=== PATIENT | male | born 1965 | race Caucasian/White ===

== ENCOUNTER 2024-11-02 00:52 | Inpatient (IN) | payer OTHER, SELFPAY ==
[2024-11-01 22:12] VITALS: BP 110/64
[2024-11-01 22:16] VITALS: BP 110/64
[2024-11-01 23:26] VITALS: BP 141/58
[2024-11-01] MEDS: PROTONIX IV 80 MG IV (23:27)
[2024-11-01 23:32] LABS: INR 1.42; PT 17.6 Sec (11.4-14.6)
[2024-11-01 23:33] LABS: APTT 41.6 Sec (23.4-35.0)
[2024-11-01 23:37] VITALS: BP 126/52
[2024-11-01 23:40] VITALS: BP 123/54
[2024-11-01] MEDS: PROTONIX 100 IV (23:42)
[2024-11-01 23:49] LABS: ALT (SGPT) 28 U/L (0-50); AST (SGOT) 26 U/L (17-59); Albumin 3.1 g/dl (3.5-5.0); Alkaline Phosphatase 132 U/L (38-126); Blood Urea Nitrogen 71 mg/dl (9-20); Calcium 8.6 mg/dl (8.4-10.2); Carbon Dioxide 31 mmol/L (22-30); Chloride 94 mmol/L (98-107); Glucose 167 mg/dl (70-99); Lipase 262 U/L (23-300); Potassium 3.4 mmol/L (3.5-5.1); Sodium 134 mmol/L (135-145); Total Protein 6.8 g/dl (6.3-8.2); eGFR 27.55
[2024-11-01 23:50] VITALS: BP 126/55
--- NOTE | 2024-11-01 23:52 | ED.GENMED ---
History of Present Illness
General
Chief Complaint: Rectal Bleeding
Source: patient
Exam Limitations: none
Time Seen by Provider: 11/01/24 22:28
Nursing documentation reviewed up to this point in time: agreed with
History of Present Illness
History of Present Illness:
Note:
CHIEF COMPLAINT(S)
Vomiting with bright red blood and episodes of diarrhea.
HISTORY OF PRESENT ILLNESS
The patient is a 59-year-old male with a significant history of strokes, necrotizing bacterial infection in the abdomen, and a series of abdominal surgeries. He also has a past medical history involving end-stage renal disease requiring dialysis,
diabetes mellitus, hypertension, and congestive heart failure. The patient is presenting with new-onset vomiting of dark red blood, which started today. He also experienced diarrhea earlier this morning. Diarrhea was heme positive in the emergency
department.patient significant other at the bedside.
PAST MEDICAL AND SURGICAL HISTORY
History of strokes, necrotizing bacterial infection in the abdomen leading to multiple surgeries, end-stage renal disease on dialysis, diabetes mellitus, hypertension, and congestive heart failure.
ADDITIONAL HISTORY OBTAINED FROM SOURCES OTHER THAN THE PATIENT
Per the snf staff, the patients vomiting and diarrhea started earlier this morning.
CHRONIC MEDICAL CONDITIONS SIGNIFICANTLY AFFECTING CARE
Chronic kidney disease on dialysis, diabetes mellitus, hypertension, and congestive heart failure.
REVIEW OF SYSTEMS
- Gastrointestinal: Vomiting with bright red blood, diarrhea.
PHYSICAL EXAM
General: Alert, seemingly no acute distress. Chronic disability
Skin: Warm, diaphoretic
Head: Normocephalic, atraumatic.
Neck: Supple, trachea midline.
Eye Ears, nose, mouth, and throat: Oral mucosa moist.
Cardiovascular: Normal peripheral perfusion, no edema.
Respiratory: Respirations are non-labored.
Gastrointestinal: Abdomen nondistended. Rectal tube in place palpation leaking dark stool stool around the tube
Back: Normal range of motion, normal alignment.
Musculoskeletal: Normal range of motion, normal strength.
Neurological: Patient at baseline mental status
Psychiatric: Cooperative, appropriate mood & affect.
PROBLEM LIST
Acute: Vomiting with hematemesis, Hemoccult positive diarrhea.
Chronic: Chronic kidney disease, diabetes mellitus, hypertension, congestive heart failure.
PLAN
The plan includes further evaluation and management of the hematemesis and diarrhea, potentially involving endoscopic investigation and supportive care. Blood work will be conducted to assess hemoglobin levels and renal function due to the patients
history of kidney disease. Monitoring for signs of significant blood loss or electrolyte imbalance is necessary. Kcentra started
DIFFERENTIAL DIAGNOSIS
The Differential Diagnosis includes, in no particular order and is not limited to:
1. Upper gastrointestinal bleed
2. Gastric ulcer
3. Esophageal varices
4. Margi-Simpson tear
5. Diverticulosis
6. Inflammatory bowel disease
7. Gastroenteritis
8. Peptic ulcer disease
9. Esophagitis
10. Gastrointestinal malignancy
Disposition:
SUMMARY OF ENCOUNTER
The patient is a 59-year-old male with a history of anticoagulation on apixaban (Eliquis) presenting with a gastrointestinal bleed. The patient has dark, tarry stools that are liquid, and the vomitus is dark with a dark red tinge, confirmed to be
hemoccult positive. Initial management included the administration of Kcentra to reverse the effects of anticoagulation. Gastroenterology was consulted for further management, and it has been decided to admit the patient to the hospital service for
further evaluation and treatment.
DISPOSITION
Admit to hospital service.
ASSESSMENT
The patient presents with signs of an active gastrointestinal bleed likely complicated by anticoagulation therapy with apixaban. The dark, tarry stools and hemoccult positive vomitus indicate upper gastrointestinal bleeding, possibly from a source
like a gastric ulcer or esophageal varices.
EMERGENCY TREATMENTS ADMINISTERED
Kcentra was administered to reverse the effects of anticoagulation.
MANAGEMENT OF THE PATIENTS CARE WAS DISCUSSED WITH
Gastroenterology was consulted for the patients management regarding the gastrointestinal bleed.
PLAN
Continue monitoring the patients hemodynamic status, serial hemoglobin, and hematocrit levels. Consult Gastroenterology for endoscopic evaluation and management. Consider blood transfusion if there is significant blood loss.
MEDICATION RECONCILIATION
Kcentra was administered.
MEDICAL DECISION MAKING
-Complexity of Data Reviewed: Chronic conditions affecting care include the patient�s known history of anticoagulation use. The differential diagnoses considered were 1) Upper gastrointestinal bleed 2) Gastric ulcer 3) Esophageal varices 4)
Margi-Simpson tear 5) Diverticulosis 6) Gastroenteritis 7) Peptic ulcer disease 8) Esophagitis 9) Gastrointestinal malignancy.
-Data:
Category 1
No specific lab tests were discussed.
Category 3
Discussion with Gastroenterology regarding management of the gastrointestinal bleed.
DIAGNOSIS
- Upper gastrointestinal bleeding [ICD-10 K92.2]
- Anticoagulation therapy complication (due to apixaban) [ICD-10 D68.32]
Phy Exam
Physical Exam
Physical Exam:
.
Cardiovascular Exam
Cardiovascular Exam: other (Port in right chest wall)
Musculoskeletal Exam
Musculoskeletal Exam: other (Fistula in the left arm)
Skin Exam
Skin Exam: diaphoresis and warmth
Sepsis
Sepsis Screening
Sepsis Assessment: Sepsis Ruled Out
Sepsis Screen
Sepsis Screen: Sepsis Ruled Out
Date: 11/02/24
Time: 00:33
Course
Orders/Labs/Results
Orders:
Orders
11/01/24 22:28
Urinalysis Reflex To Culture Urgent
11/01/24 22:50
STOOL [C difficile Antigen & Toxins] Urgent
PHILL Source: Feces/Stool
Specimen Description:
Date Specimen was Collected: 11/01/24
Time Specimen was Collected: 22:50
11/01/24 23:13
Complete Blood Count/With Diff Urgent
Comprehensive Metabolic Panel Urgent
Lipase Urgent
PTT Urgent
Prothrombin Time Urgent
Stool Culture Urgent
PHILL Source: Feces/Stool
Specimen Description:
Date Specimen was Collected: 11/01/24
Time Specimen was Collected: 22:50
11/01/24 23:15
Octreotide [Sandostatin] 50 mcg IV NOW STA
Pantoprazole 80 mg/100 ml Nss [Protonix] 80 mg in 100 ml IV NOW
Pantoprazole [Protonix IV] 80 mg IV NOW STA
11/01/24 23:16
Electrocardiogram (*1) Stat
Reason for Study: Other
Other Reason for Exam: GI Bleed
EKG- Treatment ONCE
IV Insert/Care/Rem.- Treatment PRN
11/01/24 23:35
Type And Crossmatch [Type+Screen] Urgent
11/02/24 00:12
Prothrombin Complex(Pcc),Human [Kcentra] 2,126 unit Empty Viaflex Container 100 ml [Viaflex Empty Container] 80 ml IV NOW
Does patient have a dx of serious acute active bleeding?: Yes
Does patient have prior history of HIT?: No
Abnormal Lab Results
11/01/24
23:13
WBC 16.1 H 10^3/uL
(4.8-10.8)
RBC 2.39 L 10^6/uL
(4.70-6.10)
Hgb 6.6 L* g/dL
(13.0-18.0)
Hct 21.1 L %
(39.0-52.0)
MCHC 31.3 L g/dL
(33.0-37.0)
RDW 15.6 H %
(11.5-14.5)
Abs Immat Gran (auto) 0.1 H 10^3/uL
(0-0.05)
Absolute Neuts (auto) 13.1 H 10^3/uL
(1.4-6.5)
Absolute Monos (auto) 0.8 H 10^3/uL
(0.1-0.6)
Immature Gran % 0.7 H %
(0-0.5)
Neutrophils % 81.5 H %
(42.2-75.2)
Lymphocytes % 10.5 L %
(20.5-51.1)
PT 17.6 H Sec
(11.4-14.6)
APTT 41.6 H Sec
(23.4-35.0)
Sodium 134 L mmol/L
(135-145)
Potassium 3.4 L mmol/L
(3.5-5.1)
Chloride 94 L mmol/L
(98-107)
Carbon Dioxide 31 H mmol/L
(22-30)
BUN 71 H mg/dl
(9-20)
Creatinine 2.6 H mg/dL
(0.7-1.3)
Glucose 167 H mg/dl
(70-99)
Alkaline Phosphatase 132 H U/L
(38-126)
Albumin 3.1 L g/dl
(3.5-5.0)
11/01/24 23:13
11/01/24 23:13
Vital Signs
Initial and Last Documented VS:
Initial Vital Signs
Temp Pulse Resp BP Pulse Ox
99.1 F 96 22 110/64 98
11/01/24 22:12 11/01/24 22:12 11/01/24 22:12 11/01/24 22:12 11/01/24 22:12
Last Documented Vital Signs
Temp Pulse Resp BP Pulse Ox
99.1 F 82 27 125/57 93
11/01/24 22:12 11/02/24 00:15 11/01/24 23:45 11/02/24 00:10 11/02/24 00:15
*Pulse Oximetry
SaO2: 98
Oxygen Mode of Delivery: Room air
Patient hypoxic: no
*Critical Care Note
Total Time (30-74mins, 75-104mins- exclusive of procedures): 36 (Critical care statement: A total of 36 minutes of critical care time was provided for this patient. This time is separate from time utilized to perform the aforementioned documented
procedures. Aggregate critical care time includes only time during which I was engaged in work directl)
Update Note
Update Note:
Spoke with Dr. Naseem Donohue, who is aware of the patient. Patient to be admitted to the hospitalist service.
ED Attending Note
-
Portions of this chart may have been created with voice recognition software.� Occasional wrong word or��sound alike� substitutions may have occurred due to the inherent limitations of voice recognition software.
Discharge Plan
Departure
Patient Disposition: Admit
Date of Disposition: 11/02/24
Time of Disposition: 00:02
Admit to: ICU
Presentation/result/management discussed w/ accepting MD/DO: Hospitalist
Condition: Fair
Discharge Problem:
Acute GI bleeding
Interventions
Interventions:
*Risk Screen - Suicide Last Done: 11/01/24 22:12
*General Assessment Last Done: 11/01/24 22:12
*Neglect/Abuse Screening Last Done: 11/01/24 22:12
*ED- Fall Risk Assessment Last Done: 11/01/24 22:12
*ED COVID-19 Vaccine History Last Done: 11/01/24 22:12
Discharge Date and Time
Print Language: CONGOLESE
[2024-11-02] VITALS (31 sets, daily range): BP systolic 85–144; BP diastolic 43–69; BMI 29.2
[2024-11-02 00:23] LABS: Hematocrit 21.1 % (39.0-52.0); Hemoglobin 6.6 g/dL (13.0-18.0); Mean Corp Hgb Conc. 31.3 g/dL (33.0-37.0); Mean Corpuscular Volume 88.3 fL (80.0-94.0); Nucleated Red Blood Cells % 0 % (-); Platelet Count 216 10^3/uL (130-400); Red Cell Dist. Width 15.6 % (11.5-14.5)
[2024-11-02] MEDS: KCENTRA 80 UNIT IV (00:23)
--- NOTE | 2024-11-02 00:28 | HPS.HSE ---
Family Physician
-
Family Physician:
Chief Complaint
-
Rectal bleeding
History of Present Illness
This is a 59-year-old male with past medical history significant for CVA with residual paraplegia, status post trach and PEG, history of intra-abdominal abscess status post exploratory laparotomy without bowel resection, atrial fibrillation on
anticoagulation, [id number] diabetes, COPD, hypertension, ESRD on hemodialysis via right IJ PermCath brought to the emergency department after having found 2 episodes of bloody emesis at his [facility].
According to significant other patient had 2 episodes of bloody appearing brown emesis while at the [facility]. He did not complain of having any abdominal pain prior. He has not been having any diarrhea. He ate last was diagnosed with C.
difficile about 2 months ago. On arrival in the emergency department patient was having a brisk amount of heme positive brown blood-tinged stool. It was not particularly black. He was diaphoretic.
Initial blood pressure was 110/64 pulse was 96 and was satting 98% on room air. Was afebrile with a temp of 99.1. Hemoglobin was 6.6 (significant other notes that he has chronic anemia for reasons that she is not sure of and he has been transfused
multiple times in the past). WBC was 16.1 platelet count was 216. His electrolytes were stable with a sodium of 134, potassium 3.4 bicarb 31 and BUN/creatinine of 71 and 2.6 respectively. Glucose was 167. INR was 1.4.
Medical History
Past Medical History
Past Medical History: Reports Arrhythmia (Atrial fibrillation), CVA (Residual aphasia and paraplegia, residual dysphagia status post PEG), HTN and Renal Failure (End-stage renal disease on hemodialysis Friday via right IJ PermCath,
he is status post a left upper extremity AV fistula 1 month ago)
Past Surgical History: Reports Other (PEG tube placement, exploratory laparotomy)
Social History
Unable to obtain full social history at this time due to: Patient Non-verbal
Family History
Family History: Not pertinent
Allergies / Home Medications
Allergies reflects when Allergies were last updated in [facility].
Home Medications with original date entered in [facility]
Allergy/Medication List:
Allergies
Allergy/AdvReac Type Severity Reaction Status Date / Time
No Known Allergies Allergy Verified 11/01/24 22:20
If medication reconciliation has not been performed, why?: Medication List N/A
Review of Systems
-
Unable to obtain full review of systems at this time due to: Patient Non-verbal
Physical Exam
Vital Signs
Vital Signs
Temp Pulse Resp BP Pulse Ox
99.1 F 82 27 125/57 93
11/01/24 22:12 11/02/24 00:15 11/01/24 23:45 11/02/24 00:10 11/02/24 00:15
Physical Exam
General: Other (Ill-appearing patient, nonverbal unable to communicate. )
HEENT: NormoCephalic, Anicteric, Atraumatic and PERRLA; No Oxygen
Respiratory: Clear
Cardiac: S1/S2 and Regular Rhythm
Breast: Deferred by me
GI: Soft, Non Distended, Normal Bowel Sounds and Peg Tube
Rectal: Brown, Red and Hem Positive
Genito-urinary: Deferred by me
Musculoskeletal: No Clubbing, No Cyanosis and No Edema
Skin: Warm
Neuro: Awake; No Alert or Oriented
Hematologic/Lymphatic: No Lymphadenopathy
Laboratory Results
-
11/01/24 23:13
11/01/24 23:13
Laboratory Results
PT 17.6 Sec (11.4-14.6) H 11/01/24 23:13
INR 1.42 11/01/24 23:13
APTT 41.6 Sec (23.4-35.0) H 11/01/24 23:13
Total Bilirubin 0.4 mg/dl (0.2-1.3) 11/01/24 23:13
AST 26 U/L (17-59) 11/01/24 23:13
ALT 28 U/L (0-50) 11/01/24 23:13
Alkaline Phosphatase 132 U/L (38-126) H 11/01/24 23:13
Lipase 262 U/L (23-300) 11/01/24 23:13
Data Reviewed
-
Lab Data: Labs Reviewed by me
Old Records: Reviewed
Impression/Plan
-
IMPRESSION:
59-year-old with past medical history of atrial fibrillation on anticoagulation, incisional disease on hemodialysis, CVA with residual aphasia and paraplegia, status post PEG for dysphagia presenting to the emergency department with GI hemorrhage.
Had bloody emesis at [facility] and has continued blood tinged heme positive stool in the emergency department. Possibly diarrhea in the setting of GI bleed vessels extensive upper/lower GI hemorrhage. INR is 1.4 patient is on Eliquis.
PLAN:
GI bleed -unclear source of the bleeding likely upper GI bleed given bloody emesis will cannot rule out lower GI bleed. He is currently with a stable blood pressure at 125 systolic. He is not tachycardic. Hemoglobin 6.6. No abdominal tenderness
or distention.
-Admit to IMU for GI hemorrhage
-Reversal with Kcentra
-PPI IV drip
-non known liver disease/varices, avoided octreotide drip
-Trend H&H every 6-8h
-Given the initial small bolus crystalloid
-Transfuse 2 units packed RBCs now
-Monitor hemodynamics, will consider CT GI bleeding scan but unlikely to be useful in setting of anticoagulant
-Patient is status post PEG, holding oral medications for now, n.p.o.
ESRD -HD Friday via right IJ PermCath. He does have a new 1 month old left upper extremity AV fistula. Labs do not show any indication for acute modality. His last dialysis was today Friday.
- nephrology consult
-Blood products and fluids as necessary for hemorrhagic shock
-Holding all antihypertensive
DVT prophylaxis with SCDs
CODE STATUS�full code
[2024-11-02] MEDS: PROTONIX IV (02:15)
[2024-11-02] MEDS: D5/0.45%NACL 1000 IV (02:15)
--- NOTE | 2024-11-02 04:35 | PTCARENOTE ---
Pt arrived to ICU room 3366 from ER at approx 0145. Pt is IMU level of care. Protonix drip infusing upon arrival. Pt is non-verbal, able to shake/nod head yes/no but does not follow commands most of the time, therefore unable to assess pt's mental
status fully. Pt noted to be moving his LUE off of the bed but only trace movement to other extremities. Denies pain, denies nausea. SR 70s-80s on monitor. SpO2 100% on RA. Arrived from ER with fecal management system already in place, draining
brown liquid stool. Multiple wounds noted, see skin/wound management flowsheet on worklist for details. Wound care consult placed. First of 2 units of PRBC started at 0300. Assessment as documented in nursing shift assessment flowsheet. in
room, asleep on couch.
[2024-11-02 05:59] LABS: Hematocrit 24.6 % (39.0-52.0); Hemoglobin 8.0 g/dL (13.0-18.0)
[2024-11-02 06:12] LABS: INR 1.30; PT 16.5 Sec (11.4-14.6)
[2024-11-02 06:13] LABS: APTT 36.7 Sec (23.4-35.0)
[2024-11-02 06:24] LABS: Blood Urea Nitrogen 79 mg/dl (9-20); Calcium 8.7 mg/dl (8.4-10.2); Carbon Dioxide 32 mmol/L (22-30); Chloride 94 mmol/L (98-107); Estimated Creatinine Clearance 28 ml/min; Glucose 141 mg/dl (70-99); Potassium 3.4 mmol/L (3.5-5.1); Sodium 134 mmol/L (135-145); eGFR 25.20
--- NOTE | 2024-11-02 08:19 | CON.GI ---
Addendum entered and electronically signed by Santy Silvestre MD 11/02/24 13:51:
I personally performed a history and physical exam of the patient and discussed management with the resident. I reviewed the resident's note and agree with the documented findings and plan of care HPI/CC.
59-year-old male past medical history of CVA with residual paraplegia and aphasia status post trach now removed, PEG placed March 2023 with history of intra-abdominal abscess with necrotizing infection on discussion with most likely due to
buried bumper, PEG most recently changed January 2024, A-fib on Eliquis, diabetes, CHF (no details known; EKG without overt signs of LV dilation), and renal disease on dialysis Friday, history of anemia (unclear baseline Hb),
history of C. difficile 2 months ago presenting with hematemesis. This was seen at the longterm, details are from the chart. He was also having diarrhea. Hemodynamically stable in ER and continues to be so here in the hospital. Hemoglobin on
admission was 6.6, he has gotten 2 units of blood and his repeat hemoglobin is 8.6. He has had no episodes of hematemesis here in the hospital. We did a bedside aspirate of the PEG and there was no blood. Platelet count is 216. He was given
Kcentra in the emergency room. He is on a Protonix drip. Additionally, he was found to have a leukocytosis with white blood cell count of 16. Abd/chest Xray done was normal. Dark brown liquid currently in stool collection kit.
On exam, he is nonverbal. His belly is somewhat distended, nontender. Plan for CT for further evaluation given the abdominal distention, leukocytosis, and pending findings (ensure no subtle PUD perforation, etc) likely would benefit from upper
endoscopy tomorrow. If has further ongoing overt bleeding, would proceed with upper endoscopy sooner. Risk, alternatives, benefits of upper endoscopy discussed with patient's and she is agreeable, risks including but not limited to bleeding,
infection, perforation. I will discuss with the patient's tomorrow, we can also exchange the PEG tomorrow during the upper endoscopy. In the interim, recommend to continue PPI, continue to trend hemoglobin. In regards to his diarrhea, C.
difficile antigen positive and toxin negative. This could be due to his recent C. difficile but I will also check stool white blood cell count. Stool culture pending. If diarrhea persist with no clear etiology, may benefit from Dificid. Discussed
with hospitalist; also d/w renewal specialist regarding timing of HD with EGD tmwr.
Original Note:
Consultation
-
Date/Time Consultation Requested: 11/02/2024
Date/Time Consultation Performed: 11/02/2024
Requesting Provider: Niurka Mckeon
Performing Provider: Cathryn Silvestre
Reason for Consultation: Bloody Emesis
Medical History
Chief Complaint / HPI
Chief Complaint: Blood emesis
History of Present Illness:
Jordon is a 59 year old man with a past medical history significant for CVA with residual paraplegia/aphasia, s/p trach (now removed), PEG tube placed in Mar 2023 (last changed January 2024), w/ h/o intraabdominal abscess with necrotizing infection
requiring multiple surgeries and movement of PEG placement (May 2023), afib (on Eliquis), NIDDM, CHF (unsure of last echo), ESRD on Dialysis MWFr (R IJ Permacath), hypertension who presented from [facility] with complaints of 2 episodes of blood
emesis. Per , he had C Diff 2 months ago, but was not having any symptoms leading up to this emesis event. He was passing brown liquid stool on arrival to the ED. No reports of fever or other systemic signs. He was hemodynamically stable and
afebrile in the ED. Hgb was found to be 6.6. He was transfused 1 U PRBCs along with Kcentra. reports a need of transfusions in the past. He was started on IV PPI ggt and hgb was trended.
Called to obtain additional history. Pt has not been seen by GI in over one year. He has not had EGD in over one year. She cannot recall if he ever had a colonoscopy. No reported history of hemorrhoids, polyps, colonic masses, diverticulosis,
or known PUD.
GI was consulted for bloody emesis.
He is currently resting comfortably, asleep in bed. No new events overnight per nursing. FMS is draining brown liquid stool.
Past Medical History
Past Medical History: CHF, CVA, HTN, NIDDM and Renal Failure (on Dialysis)
Social History
Tobacco: Non-Smoker
Alcohol: None
Drug: None
Personal:
Living: Usp
Employment: Not Employed
Family History
Family History: Reviewed & Not Pertinent
Allergies / Home Medications
Allergy/AdvReac Type Severity Reaction Status Date / Time
No Known Allergies Allergy Verified 11/01/24 22:20
�Medication �Instructions �Recorded
allopurinol 100 mg tablet 100 mg feeding tube DAILY 11/02/24
apixaban 5 mg tablet (Eliquis) 5 mg feeding tube BID 11/02/24
hydralazine 25 mg tablet 25 mg feeding tube TID 11/02/24
nystatin 100,000 unit/mL oral 11/02/24
suspension
ondansetron HCl 8 mg tablet 8 mg feeding tube TID 11/02/24
sevelamer HCl 800 mg tablet 800 mg feeding tube TID 11/02/24
Review of Systems
-
Unable to obtain full review of systems at this time due to: Patient Non Verbal
Vital Signs
Temp Pulse Resp BP Pulse Ox
98.6 F 78 24 125/58 100
11/02/24 08:02 11/02/24 08:02 11/02/24 08:02 11/02/24 08:02 11/02/24 08:02
Physical Exam
Exam
General: No Apparent Distress
HEENT: Normocephalic, Anicteric and Moist Mucous Membranes
Respiratory: Clear and Non Labored Respirations
Cardiac: S1/S2 and Regular Rhythm; Negative Murmur
Breast: N/A
GI: Other (Large central scar from prior laparotomy with adjacent firm tissue, nontender abdomen, hyperactive bowel sounds. PEG tube with clean/dry surrounding tissue. )
Rectal: Other (FMS)
Musculoskeletal: No Clubbing, No Cyanosis and No Edema
Skin: Warm and Dry
Neuro: Other (Paraplegia post CVA w/ residual speech/motor defecits)
Results
WBC 16.1 10^3/uL (4.8-10.8) H 11/01/24 23:13
Hgb 8.0 g/dL (13.0-18.0) L D 11/02/24 05:44
Hct 24.6 % (39.0-52.0) L 11/02/24 05:44
MCV 88.3 fL (80.0-94.0) 11/01/24 23:13
Plt Count 216 10^3/uL (130-400) 11/01/24 23:13
Absolute Neuts (auto) 13.1 10^3/uL (1.4-6.5) H 11/01/24 23:13
PT 16.5 Sec (11.4-14.6) H 11/02/24 05:44
INR 1.30 11/02/24 05:44
APTT 36.7 Sec (23.4-35.0) H 11/02/24 05:44
Sodium 134 mmol/L (135-145) L 11/02/24 05:44
Potassium 3.4 mmol/L (3.5-5.1) L 11/02/24 05:44
Chloride 94 mmol/L (98-107) L 11/02/24 05:44
Carbon Dioxide 32 mmol/L (22-30) H 11/02/24 05:44
BUN 79 mg/dl (9-20) H 11/02/24 05:44
Creatinine 2.8 mg/dL (0.7-1.3) H 11/02/24 05:44
Calcium 8.7 mg/dl (8.4-10.2) 11/02/24 05:44
Total Bilirubin 0.4 mg/dl (0.2-1.3) 11/01/24 23:13
AST 26 U/L (17-59) 11/01/24 23:13
ALT 28 U/L (0-50) 11/01/24 23:13
Alkaline Phosphatase 132 U/L (38-126) H 11/01/24 23:13
Lipase 262 U/L (23-300) 11/01/24 23:13
Diagnostic Image Results:
Prior GI Procedures:
EGD:
Colonoscopy:
Assessment / Plan
-
Jordon is a 59 year old man with a past medical history significant for CVA with residual paraplegia/aphasia, s/p trach (now removed), PEG tube placed in Mar 2023 (last changed January 2024), w/ h/o intraabdominal abscess with necrotizing infection
requiring multiple surgeries and movement of PEG placement (May 2023), afib (on Eliquis), NIDDM, CHF (unsure of last echo), ESRD on Dialysis MWFr (R IJ Permacath), hypertension who presented from [facility] with complaints of 2 episodes of blood
emesis and brown liquid stool in ED.
ASSESSMENT:
#Bloody Emesis
#Diarrhea
#Anemia, multifactorial (Acute Blood Loss, CKD, probable AMBER)
#H/o CVA with dysphagia, aphasia, paraplegia
#s/p tracheostomy
#Leukocytosis
#PEG tube
#ESRD on Dialysis MWFr
#Afib
#CHF (unsure of last EF)
#NIDDM
#Hypertension
PLAN:
#Bloody Emesis
No new episodes of bloody emesis overnight. Uncertain whether emesis was truly 'bloody'. No hint of 'coffee ground' emesis. Hgb improved to 8 s/p transfusion, getting additional bag now, will check repeat H&H at 11am and 5pm.
Will first obtain abd xr to check for obstruction which can lead to overflow diarrhea and dark emesis.
Agree to continue with IV PPI ggt.
elevated WBC count on arrival, but afebrile -- Stool studies obtained, will follow results
Continue to hold Eliquis/AC, pt in NSR on monitor
#Diarrhea
Stool dark brown in color w/ clots per nursing, FMS in
history of C Diff 2 months ago -- stool studies pending
Will obtain XR abdomen to rule out overflow
#Anemia, multifactorial (Acute Blood Loss, CKD, probable AMBER)
Hgb 6.6 on arrival, improved to 8 after 1 uPRBCs and Kcentra. Repeating H&H, transfusing second U PRBCs now.
Add on Iron Studies, B12, Folate to blood drawn prior to blood products -- likely multifactorial
#Dysphagia
#PEG Tube
Pt may need eventual PEG tube replacement given that last replacement took place in January 2024 and pt has not had GI follow up since then.
-
-
Thank you for consultation and allowing me to participate in the patient's care. Please call the credit professional GI physician during the after hours with any questions or concerns.
[2024-11-02] MEDS: PROTONIX 100 IV ×2 (09:05→20:35)
--- NOTE | 2024-11-02 09:22 | PTCARENOTE ---
pt wakes to touch. protective movements noted when turned. protonix gtt and prbc running now. fms in place draining blood tinged. loose stool. cwhd cath in place.
--- NOTE | 2024-11-02 09:53 | W.PN.HOSP.TC ---
Today's Communication/Plan
-
see PN
Assessment / Plan
Assessment / Plan
59yo M with PMHx of ESRD on HD, Hx of c.diff, intraabdominal abscess, CVA s/p PEG and paraplegia, non-verbal, Afib on eliquis brought from [facility] with anemia and hematemesis. S/P Kcentra in ED
A/P:
#Acute blood loss anemia 2/2 GIB on anemia of chronic disease 2/2 ESRD
Two large bore IV, serial H&H, transfuse to keep Hgb >7
GI consult
PPI drip
Hold antioplatelets, anticoagulation and NSAIDs
s/p 2 units PRBC
#Diarrhea
Hx of recent C.diff
stool C.diff PCR positive and toxine neg
will possibly target treatment if no other source of leukocytosis
#Leukocytosis
abd non-tender, not distended
BCx
Chest XR
UA if possible
#ESRD on HD
#Mild hypokalemia
nephrology for HD
#Minimal alk.phos elevation
no RUQ pain
follow LFT
if no other source of infection - possible CT abd/pelvis
#Dysphagia
on PEG
#Hx of CVA with residular aphasia and paraplegia
COnt ELiquis when possible
DVT ppx SCDs
Full code
I have spent at least 75min of critical care time reviewing chart, test results, communication with consultants and providing direct patient care
Anticipated Discharge: > 48 hours
Subjective/Interval History
-
Date of Service: November 02, 2024
Objective Data
-
Labs:
Laboratory Results
11/01/24 11/02/24 11/02/24
23:13 05:44 11:00
WBC 16.1 H
Hgb 6.6 L* 8.0 L D Pending
Hct 21.1 L 24.6 L Pending
Plt Count 216
PT 17.6 H 16.5 H
INR 1.42 1.30
APTT 41.6 H 36.7 H
Sodium 134 L 134 L
Potassium 3.4 L 3.4 L
Chloride 94 L 94 L
Carbon Dioxide 31 H 32 H
BUN 71 H 79 H
Creatinine 2.6 H 2.8 H
Glucose 167 H 141 H
Calcium 8.6 8.7
Total Bilirubin 0.4
AST 26
ALT 28
Alkaline Phosphatase 132 H
11/02/24
17:00
WBC
Hgb Pending
Hct Pending
Plt Count
PT
INR
APTT
Sodium
Potassium
Chloride
Carbon Dioxide
BUN
Creatinine
Glucose
Calcium
Total Bilirubin
AST
ALT
Alkaline Phosphatase
Vital Signs:
Vital Signs
Temp Pulse Resp BP Pulse Ox
98.6 F 78 24 125/58 100
11/02/24 08:02 11/02/24 08:02 11/02/24 08:02 11/02/24 08:02 11/02/24 08:02
I&O
11/01/24 11/02/24 11/03/24
06:59 06:59 06:59
Intake Total 300 / 310
Output Total 400 / 400
Balance -100 / -90
Review of Systems
-
Unable to obtain full review of systems at this time due to: Patient Non-verbal
History Source: Patient
Physical Exam
-
General: No Apparent Distress and Comfortable
Respiratory: Clear to Auscultation; Negative Wheezes or Crackles
Cardiac: Regular Rhythm
GI: Soft, Nontender, Nondistended and Normal Bowel Sounds
Rectal: Black
Musculoskeletal: No Clubbing, No Cyanosis and No Edema
Neuro: Awake and Alert
Psych: Calm
[2024-11-02 10:12] LABS: Iron 47 ug/dl (49-181)
[2024-11-02 10:22] LABS: Total Iron Binding Capacity 179 ug/dl (261-462)
--- NOTE | 2024-11-02 10:40 | W.CON.NEPH ---
Consultation
-
Date/Time Consultation Requested: 11/02/24 0146
Date/Time Consultation Performed: 11/02/24 1010
Requesting Provider: Niurka Duong
Performing Provider: Audrey Giordano
Reason for Consultation: ESRD
Medical History
-
Chief Complaint: GIB
History of Present Illness:
59-year-old male with past medical history significant for CVA with residual paraplegia bedbound, status post trach(now removed) and PEG, history of intra-abdominal abscess status post exploratory laparotomy without bowel resection, atrial
fibrillation on anticoagulation, [id number] diabetes, COPD, hypertension on hydralazine, ESRD on hemodialysis via right IJ PermCath brought to the emergency department after having found 2 episodes of bloody emesis at his nursing
home-[facility]. On arrival to the ER he noted to have brisk amount of heme positive dark stools. Was admitted to the ICU, remained hemodynamically stable. his hemoglobin was at 6.6 on admission and received 2 units the improvement of hemoglobin
up to 8. He completed dialysis yesterday through a tunneled catheter. He reportedly has AV fistula as well which reportedly placed a month ago. During the visit nurse noted to have bladder scan of 2 L of urine however unable to pass Griffiths
catheter. Patient is nonverbal, most of the history is obtained through the chart. No reported fever or vomiting today.
Past Medical History
Atrial fibrillation, CVA -Residual aphasia and paraplegia, residual dysphagia status post PEG, HTN and End-stage renal disease on hemodialysis Friday via right IJ PermCath, he is status post a left upper extremity AV fistula 1 month
ago
Past Surgical History: Other (PEG tube placement, exploratory laparotomy, AVF)
Social History
unable to obtain as patient is nonverbal
Family History
Family History: Unable to Obtain (non verbal)
Allergies / Home Medications
Allergy/AdvReac Type Severity Reaction Status Date / Time
No Known Allergies Allergy Verified 11/01/24 22:20
�Medication �Instructions �Recorded �Confirmed �Type
allopurinol 100 mg tablet 100 mg feeding tube DAILY 11/02/24 11/02/24 History
apixaban 5 mg tablet (Eliquis) 5 mg feeding tube BID 11/02/24 11/02/24 History
hydralazine 25 mg tablet 25 mg feeding tube TID 11/02/24 11/02/24 History
nystatin 100,000 unit/mL oral 11/02/24 History
suspension
ondansetron HCl 8 mg tablet 8 mg feeding tube TID 11/02/24 11/02/24 History
sevelamer HCl 800 mg tablet 800 mg feeding tube TID 11/02/24 11/02/24 History
Review of Systems
-
Unable to obtain full review of systems at this time due to: Patient Non Verbal
Physical Exam
Vital Signs
Vital Signs
Temp Pulse Resp BP Pulse Ox
98.5 F 82 22 125/64 99
11/02/24 10:41 11/02/24 10:41 11/02/24 10:41 11/02/24 10:41 11/02/24 10:41
Lab Results
WBC 16.1 10^3/uL (4.8-10.8) H 11/01/24 23:13
RBC 2.39 10^6/uL (4.70-6.10) L 11/01/24 23:13
Plt Count 216 10^3/uL (130-400) 11/01/24 23:13
Sodium 134 mmol/L (135-145) L 11/02/24 05:44
Potassium 3.4 mmol/L (3.5-5.1) L 11/02/24 05:44
Chloride 94 mmol/L (98-107) L 11/02/24 05:44
Carbon Dioxide 32 mmol/L (22-30) H 11/02/24 05:44
BUN 79 mg/dl (9-20) H 11/02/24 05:44
Creatinine 2.8 mg/dL (0.7-1.3) H 11/02/24 05:44
eGFR 25.20 11/02/24 05:44
Glucose 141 mg/dl (70-99) H 11/02/24 05:44
Calcium 8.7 mg/dl (8.4-10.2) 11/02/24 05:44
Albumin 3.1 g/dl (3.5-5.0) L 11/01/24 23:13
Physical Exam
General: Awake, No Distress and Nontoxic
HEENT: EOMI and Neck Supple
Respiratory: Normal Excursion, Nonlabored Respirations and Other (caorse BS)
Cardiac: S1/S2 and Regular Rate/Rhythm
Breast: Deferred by me
Abdomen: Soft, Nontender, Nondistended and Other (midline scar noted and palpable mass near umbilicus-suspect is bladder)
Musculoskeletal: No Cyanosis and No Edema
Skin: No Rash
Neuro: Other (unable to assess, pt non verbal)
Psych: Other (unable to assess since he is non verbal)
Data Reviewed
-
Labs: Labs Reviewed by me and Discussed with Nurse
Assessment/Plan
-
IMP:
Acute blood loss anemia 2/2 GIB on anemia of chronic disease 2/2 ESRD
Diarrhea
Hx of recent C.diff
Leukocytosis
ESRD on HD-[facility]
left UE AVF
right chest wall catheter
Mild hypokalemia
Dysphagia on PEG
Hx of CVA with residual aphasia and paraplegia
Urine retention
NIDDM
Plan:
A/w GIB, anemia s/p PRBC
GI consulted on PPI gtt, plan EGD tomorrow
HD likely after EGD per GI request
he is hemodynamically stable with out pressors
ok to cont gentle IVF while NPO , holding PEG feeds
noted U retention of 2lit, agree with CT , griffiths could not be passed by nursing
resume Sevelamer when resumes diet
d/w nursing
[2024-11-02 10:53] LABS: Glycohemoglobin (HgbA1c) 5.2 % (4.0-5.6)
[2024-11-02 11:51] LABS: Folate > 20.0 ng/ml (2.76-20); Vitamin B12 828 pg/ml (239-931)
--- NOTE | 2024-11-02 11:55 | CM ---
Patient is non-verbal and non-responsive to questioning. Initial assessment completed with [facility] clinical product specialist, Gianna @ [phone]. Patient has resided at [facility] since July 2024. He has a history of CVA, ESRD and necrotizing
bacteria on abdomen. He has 1 roommate. [employer] patient was non-ambulatory, remains in bed except to transfer to [facility] for HD. He is totally dependent. He has a hospital bed and katelynn lift. [facility] therapy provides daily PT services in an attempt
to reduce/prevent contractures. He is on dialysis. He has a peg tube. Currently with griffiths. Reportedly will occasionally nod yes or no if asked direct questions. He was non-responsive to CM questioning. Does have a HC-POA which is his
significant other, Samaria Alex. PCP is Dr. Abdoul Chang. Pharmacy is [facility] through [facility] ([phone]). Discharge POC: Return to [facility] for resumption of LTC.
[2024-11-02 11:57] LABS: Hematocrit 26.3 % (39.0-52.0); Hemoglobin 8.6 g/dL (13.0-18.0)
[2024-11-02 12:06] LABS: Ferritin 1150.0 ng/ml (17.9-464.0)
--- NOTE | 2024-11-02 12:09 | W.PN.UPDATE ---
Update Note
Progress Note Update
Acute urinary retention most liekly 2/2 BPH, Jarrell in with the help of Urologist, drained ~2L of urine. UA pending, start Finasteride/Tamsulosin
--- NOTE | 2024-11-02 12:17 | CONS.URO ---
Consultation
-
Date/Time Consultation Performed: 11/02/2024 1155
Requesting Provider: Hospitalist
Performing Provider: Ady
Reason for Consultation: urinary retention
Medical History
History of Present Illness
RN could not pass Wellington
Allergies/Home Medications
Allergies
Allergy/AdvReac Type Severity Reaction Status Date / Time
No Known Allergies Allergy Verified 11/01/24 22:20
Home Medications
�Medication �Instructions �Recorded �Confirmed �Type
allopurinol 100 mg tablet 100 mg feeding tube DAILY 11/02/24 11/02/24 History
apixaban 5 mg tablet (Eliquis) 5 mg feeding tube BID 11/02/24 11/02/24 History
hydralazine 25 mg tablet 25 mg feeding tube TID 11/02/24 11/02/24 History
nystatin 100,000 unit/mL oral 11/02/24 History
suspension
ondansetron HCl 8 mg tablet 8 mg feeding tube TID 11/02/24 11/02/24 History
sevelamer HCl 800 mg tablet 800 mg feeding tube TID 11/02/24 11/02/24 History
Physical Exam
Vital Signs
Vital Signs
Temp Pulse Resp BP Pulse Ox
98.5 F 82 22 125/64 99
11/02/24 10:41 11/02/24 10:41 11/02/24 10:41 11/02/24 10:41 11/02/24 10:41
Lab / Testing Results
Laboratory Results
11/02/24 05:44
Physical Exam
male in ICU bed
nonverbal
phimosis
16 Fr coude-tipped Wellington passed with return of urine
Assessment / Plan
-
AUR
Phimosis
difficult Wellington
Rec: keep Wellington
[2024-11-02] MEDS: OMNIPAQUE 50 ML PO (12:23)
[2024-11-02 12:47] LABS: Urine Character Clear (Clear)
[2024-11-02 12:57] LABS: Urine Red Blood Cell 0-2 /HPF (0-2); Urine Squamous Cell 0-2 /LPF (Few); Urine White Cell 16-20 /HPF (0-5)
[2024-11-02] MEDS: NOVOLOG FLEXPEN-LOW RESISTANCE SC ×3 (12:59→23:17)
[2024-11-02 13:09] LABS: Glucose - Point of Care 125 mg/dl (70-99)
--- NOTE | 2024-11-02 13:17 | PTCARENOTE ---
pt had no urine output. needed UA sent. bladder scanned for 1974. dr López notified. ordered to place griffiths cath. 3 attempts by two rn tried. urology consulted and placed 16f kuda cath. pt drained 2000 melania urine.
--- NOTE | 2024-11-02 14:38 | WOUNDNOTE ---
SACRUM AND BUTTOCKS
--- NOTE | 2024-11-02 15:01 | WOUNDNOTE ---
[facility] [place] RN note: Patient admitted with acute GI bleed.
See H&P for complete history.
PMH: HISTORY OF PRESENT ILLNESS
The patient is a 59-year-old male with a significant history of strokes, necrotizing bacterial infection in the abdomen, and a series of abdominal surgeries. He also has a past medical history involving end-stage renal disease requiring dialysis,
diabetes mellitus, hypertension, and congestive heart failure.
Wound Location and type/assessment: Patient admitted with: healing stage 4 sacral PI, base pink with slough foul odor. L ischium with healing suspect stage 2 vs 3, scar surrounding opening. L posterior thigh with linear skin tear. R posterior thigh
with scar. Abdomen with healing scar, open to air, no drainage. Heels are intact, very dry skin on legs and feet. Turned with assist of nurse Sree.
Appetite: NPO feedings.
Pressure redistribution devices in place: Air mattress
Plan:Will order Dakin's for wound care of sacrum wtd daily. clean all other wounds with Dakin's and then silicone foam. Mineral oil to be applied to legs and feet daily.
Will confirm orders with hospitalist and update nurse.
Updated care plan and will follow as needed.
Note to case management of equipment requested for discharge:
Recommend follow up at wound care center upon discharge.
[2024-11-02] MEDS: STERILE WATER FOR INJECTION 10 ML IV (16:06)
[2024-11-02] MEDS: ROCEPHIN 1000 MG IV (16:06)
[2024-11-02 17:16] LABS: Hematocrit 26.6 % (39.0-52.0); Hemoglobin 8.9 g/dL (13.0-18.0)
[2024-11-02 17:49] LABS: Glucose - Point of Care 105 mg/dl (70-99)
[2024-11-02] MEDS: FIRVANQ 250 MG TUBE ×2 (17:57→23:06)
--- NOTE | 2024-11-02 20:41 | PTCARENOTE ---
Patient remains non-verbal, follows with eyes, able to move b/l UE's, no observable s/s of pain noted at this time. Patient noted to have occasional, moist, non-productive cough, pox 97-100% on ra. Lung sounds coarse throughout. Patient continues
with loose/watery brown/maroon bm to FMS. UO is light brown, cloudy to griffiths cath. Griffiths cath remains intact. IVF and Protonix gtt continue. Repositioned for pressure relief and comfort. Will continue to monitor patient closely.
[2024-11-02 23:26] LABS: Glucose - Point of Care 122 mg/dl (70-99)
[2024-11-03] VITALS (28 sets, daily range): BP systolic 82–155; BP diastolic 53–109; BMI 29.2
[2024-11-03 04:53] LABS: Hematocrit 25.8 % (39.0-52.0); Hemoglobin 8.6 g/dL (13.0-18.0); Mean Corp Hgb Conc. 33.3 g/dL (33.0-37.0); Mean Corpuscular Volume 86.9 fL (80.0-94.0); Nucleated Red Blood Cells % 0 % (-); Platelet Count 225 10^3/uL (130-400); Red Cell Dist. Width 15.2 % (11.5-14.5)
[2024-11-03] MEDS: PROTONIX 100 IV (05:38)
[2024-11-03] MEDS: FIRVANQ 250 MG TUBE ×2 (05:38→14:04)
[2024-11-03] MEDS: NOVOLOG FLEXPEN-LOW RESISTANCE SC ×3 (05:39→17:17)
[2024-11-03 05:41] LABS: ALT (SGPT) 22 U/L (0-50); AST (SGOT) 36 U/L (17-59); Albumin 2.7 g/dl (3.5-5.0); Alkaline Phosphatase 77 U/L (38-126); Blood Urea Nitrogen 87 mg/dl (9-20); Calcium 8.2 mg/dl (8.4-10.2); Carbon Dioxide 31 mmol/L (22-30); Chloride 94 mmol/L (98-107); Estimated Creatinine Clearance 26 ml/min; Glucose 99 mg/dl (70-99); Magnesium 2.3 mg/dl (1.6-2.3); Potassium 3.7 mmol/L (3.5-5.1); Sodium 130 mmol/L (135-145); Total Protein 6.0 g/dl (6.3-8.2); eGFR 22.30
[2024-11-03 05:47] LABS: Glucose - Point of Care 109 mg/dl (70-99)
[2024-11-03] MEDS: DAKIN'S SOLUTION 0.125% 1/4 STRENGTH 473 ML TOPICAL (07:35)
[2024-11-03] MEDS: HYDROPHOR 1 APPLIC TOPICAL (07:36)
--- NOTE | 2024-11-03 07:48 | PTCARENOTE ---
Patient to GI lab for EGD
--- NOTE | 2024-11-03 10:05 | PHA.VAN.IN ---
Assessment
- Assessment
Renal Function: Patient has ESRD, on chronic Hemodialysis
Hemodialysis Schedule: MWF
Concomitant Antimicrobials: piperacillin/tazobactam; vanco PO
Pharmacokinetics Vancomycin I
- -
Patient Age: 59
Patient Sex: Male
Vancomycin Day #: 1
Indication: Bacteremia
Requesting Provider: Dr. López
Pertinent Antimicrobial Allergies:
NKDA
Height / Weight:
Height 5 ft 9 in
Actual Weight 89.6 kg
Pertinent Past Medical History: paraplegia (bedbound), ESRD HD MWF
- Vital Signs / Lab Results
Temp Pulse Resp BP Pulse Ox
97.4 F 72 18 129/54 99
11/03/24 07:39 11/03/24 07:45 11/03/24 07:45 11/03/24 06:00 11/03/24 07:52
Lab Results - Hematology
11/01/24 11/03/24
23:13 04:20
WBC 16.1 H 21.4 H
Lab Results - Chemistry
11/01/24 11/02/24 11/03/24
23:13 05:44 04:20
BUN 71 H 79 H 87 H
Creatinine 2.6 H 2.8 H 3.1 H
Estimated Creat Clear 28 26
Albumin 3.1 L 2.7 L
Lab Results - Urine
11/02/24 11/02/24
12:37 17:54
Urine Nitrite (Reflex) Negative Cancelled
Leukocyte Esterase Rfl 3+ A Cancelled
Urine WBC (Reflex) 16-20 A
Ur Squamous Epith Cells 0-2
Urine Bacteria (Reflex) Few A
Microbiology Results
11/02/24 12:37 Urine Culture - Final
Urine NO GROWTH
11/02/24 07:41 MRSA Screen - Final
Nose No Methicillin Resistant Staphylococcus aureus isolated.
11/02/24 10:13 Blood Culture - Preliminary
Blood/Venous Positive culture in progress
Gram Stain - Preliminary
11/01/24 23:13 Stool Leukocytes - Final
Feces/Stool
11/01/24 23:13 C. difficile GDH Antigen & Toxins - Final
Feces/Stool C. difficile antigen positive, toxin negative.
Clostridium difficile present, but toxin not detected.
Patient may be a carrier, colonized with nontoxinogenic
strain or the level of toxin in sample is below detection
limits. This information should be used in conjunction with
the patient's clinical history.
[2024-11-03 11:53] LABS: Glucose - Point of Care 96 mg/dl (70-99)
--- NOTE | 2024-11-03 12:20 | W.PN.HOSP.TC ---
Today's Communication/Plan
-
broad spectrum Abx
ID consult
repeat Bcx
carafate
HD today
move to [facility] telemetry
start Elqiuis tonight
Assessment / Plan
Assessment / Plan
59yo M with PMHx of ESRD on HD, Hx of c.diff, intraabdominal abscess, CVA s/p PEG and paraplegia, non-verbal, Afib on eliquis brought from [facility] with anemia and hematemesis. S/P Kcentra in ED. FOund severe gastritis. Also Acute urinary
retention and leukocytosis with possible bacteremia, with extensive HX of sacral wound
A/P:
#Acute blood loss anemia 2/2 GIB on anemia of chronic disease 2/2 ESRD
Two large bore IV, serial H&H, transfuse to keep Hgb >7
GI consult: s/p EGD - severe gastritis, repeat EGD in 2 months, replace PEG in 4 weeks (not done on this admission due to severe gastritis)
PPI, Carafate
s/p 2 units PRBC
#Diarrhea
Hx of recent C.diff
stool C.diff PCR positive and toxin neg
Empiric oral Vanco 250mg QID
#Leukocytosis
#Bacteremia
#stage 4 sacral PI
Extended Hx of of sacral wound mgmt in [facility], no significant wound infection on pictures
FMS to avoid wound contamination
abd non-tender, not distended
CT abd/pelvis showed enterocolitis
BCx 1 set with GPC pending ID, cannot exclude
repeat Bcx
Broad spectrum Abx
Chest XR without overt pneumonia
UA with neg Ucx
#Acute urinary retention
#Phimosis
s/p Wellington
drained 2L of urine as per Urologist
#ESRD on HD
#Mild hypokalemia
nephrology for HD
#Minimal alk.phos elevation
no RUQ pain
follow LFT
if no other source of infection - possible CT abd/pelvis
#Dysphagia
on PEG
start diet: Nepro 1.8 continuous. 3 packs prosource. Start rate 20ml/hr, increase 20ml q 8hrs to goal of 40ml/hr. Flush 25ml. Provides 880ml total volume, 1584 calories + 180 calories prosource = 1764 calories (98% needs), 71g protein + 45g protein
prosource = 116g protein (108% needs), 639ml free fluid + 600ml h2o flush = 1239ml.
#Hx of CVA with residual aphasia and paraplegia
COnt ELiquis on 11/03/24 as per GI
#Afib on eliquis
cont tele
decrease Eliquis to 2.5mg in view of ESRD
DVT ppx SCDs
Full code
I have spent at least 55min of critical care time reviewing chart, test results, communication with consultants, POA over the phone and providing direct patient care
Anticipated Discharge: > 48 hours
Subjective/Interval History
-
Date of Service: November 03, 2024
Objective Data
-
Labs:
Laboratory Results
11/03/24
04:20
WBC 21.4 H
Hgb 8.6 L
Hct 25.8 L
Plt Count 225
Sodium 130 L
Potassium 3.7
Chloride 94 L
Carbon Dioxide 31 H
BUN 87 H
Creatinine 3.1 H
Glucose 99
Calcium 8.2 L
Total Bilirubin 0.7
AST 36
ALT 22
Alkaline Phosphatase 77
Vital Signs:
Vital Signs
Temp Pulse Resp BP Pulse Ox
98 F 85 18 118/71 100
11/03/24 11:21 11/03/24 11:51 11/03/24 11:51 11/03/24 11:51 11/03/24 11:51
I&O
11/02/24 11/03/24 11/04/24
06:59 06:59 06:59
Intake Total 300 / 310 1969
Output Total 400 / 400 225 / 2250
Balance -100 / -90 -280 / -230 /
Review of Systems
-
Unable to obtain full review of systems at this time due to: Patient Non-verbal
History Source: Patient
Physical Exam
-
General: No Apparent Distress and Comfortable
Cardiac: Regular Rhythm
GI: Soft, Nontender, Nondistended and Peg Tube
Neuro: Awake and Alert
Psych: Calm
[2024-11-03] MEDS: FLEXBUMIN 25% FOR HEMODIALYSIS 12.5 GRAMS IV (12:40)
[2024-11-03] MEDS: MANNITOL 25% 12.5 GRAMS IV ×2 (12:43→14:00)
[2024-11-03] MEDS: RETACRIT 10000 UNITS IV (12:44)
--- NOTE | 2024-11-03 12:50 | W.PN.NEPH.HD ---
Assessment
-
Patient seen on dialysis
Systolic blood pressure abruptly dropping from 1 80-82 following coughing fit
IV Albumin and mannitol provided for blood pressure support
UF will be titrated back as hemodynamically dictated
Dialysis via catheter
Progress Note - Hemodialysis
-
Date of Service: November 03, 2024
Duration: 30 minutes and 3 hours
Potassium Bath: 3
Calcium Bath: 2.5
Opti-Dialyzer: 160
Ultrafiltration: Other (2 kg as hemodynamically tolerated)
Blood Flow: 400
Dialysate Flow: 600
Heparin: None
EPO: 10,000
[2024-11-03] MEDS: CARAFATE SUSPENSION 1 GM TUBE ×2 (14:04→22:56)
--- NOTE | 2024-11-03 14:06 | CON.ID ---
Addendum entered and electronically signed by Chela Montague MD 11/03/24 17:01:
I personally performed a history and physical exam of the patient and discussed management with the resident. I reviewed the resident's note and agree with most of the documented findings and plan of care HPI/CC.
S: 59-year-old male from [facility] with history of Afib on Eliquis, CVA, paraplegia, dysphagia, PEG, ESRD, disease on hemodialysis via HD cath, history of extensive intra-abdominal necrotizing infection surgeries, recent C. difficile 2 months ago
presented with hematemesis, diarrhea, heme+stool, and urinary retention. Pt denies fever/chills. No cough. +mild sob. + abdominal pain. Onset of diarrhea day of admission.
O: Exam: No acute distress. Awake and alert. Chest clear. Abd: left lower quadrant tenderness. FMS with burgundy dark brown liquid stool.
Wellington clear urine. HD cath no erythema
CT a/p with IV contrast: limited study due to beam hardening artifact and lack of oral contrast. Suspected enteritis, suspected colitis of descending colon to rectum
# Leukocytosis -trending up
# Upper GI bleed with blood loss anemia
# Diarrhea
# Recent h/o C. difficile August 2024
# ESRD on HD via HD cath
-Afebrile
-Ucx neg.
-Staph species (suspect CoNS) bacteremia 1 of 2 sets =contaminant.
- CXR atelectasis
- Review of wound photos: sacral decubiti do not look infected
- EGD: significant gastritis
- C. dif Ag positive, toxin negative, likely colonization
stool culture pending
Due to high risk of C. diff recurrence and current diarrhea, can continue po vancomycin at lower dose 125mg q6.
- Suspect leukocytosis reactive from GIB
DC Vancomycin and Zosyn
Follow WBC
If leukocytosis continues to trend up, repeat CT a/p with IV and PO contrast to better evaluate for colitis/diverticulitis.
Original Note:
Consultation
-
Date/Time Consultation Requested: 11/03/2024 12:28
Date/Time Consultation Performed: 11/03/2024
Requesting Provider: Kavon López MD
Performing Provider: Kevin Burton MD ; Chela Montague MD
Reason for Consultation: Bacteremia, leukocytosis
Chief Complaint / Past History
Chief Complaint
GIB
History of Present Illness
Patient is nonverbal, most of the history is obtained through the chart.
This is a 59-year-old male with past medical history significant for CVA with residual paraplegia bedbound, s/post trach(now removed) and PEG, history of intra-abdominal abscess s/p exploratory laparotomy without bowel resection, atrial fibrillation
on anticoagulation, irz-oqjzbub-phnabfijf diabetes, COPD, hypertension on hydralazine, ESRD on hemodialysis via right IJ PermCath brought to the emergency department on 11/01/24 after having found 2 episodes of bloody emesis at his nursing
home-[facility].
On arrival to the ER he noted to have brisk amount of heme positive dark stools. Was admitted to the ICU, remained hemodynamically stable. his hemoglobin was at 6.6 on admission and received 2 units the improvement of hemoglobin up to 8. WBC was
16.1 and now 21.4. He is on dialysis through a tunneled catheter(was on dialysis when i saw him today). He reportedly has AV fistula as well which reportedly placed a month ago. During the routine visit nurse noted to have bladder scan of 2 L of
urine however unable to pass Wellington catheter. it was done here in the hospital by urologist.
Hb remained stable as of today. He had EGD as well and biopsy results pending. He was on iv vanco and rocephin(received one dose yesterday) was switched to zosyn today.
Past History
Past Medical History: Other (Atrial fibrillation, CVA -Residual aphasia and paraplegia, residual dysphagia status post PEG, HTN and End-stage renal disease on hemodialysis Friday via right IJ PermCath, he is status post a left upper
extremity AV fistula 1 month ago)
Past Surgical History: Other (PEG tube placement, exploratory laparotomy, AVF))
Allergy History:
No Known Allergies Allergy (Verified 11/01/24 22:20)
Medications Reviewed: Yes
Current Antibiotics:
vanco and zosyn
Social History
Living: Other (unable to obtain social hx as patient is non verbal.)
Family History
Family History: Unable to Obtain (Patient not verbal)
Review of Systems
Review of Systems
General: Negative Fever
Cardiovascular: Negative Chest Pain
Respiratory: Negative Cough
Neurological: Negative Headache
unable to obtain full ros as pt is non verbal
Vital Signs
Temp Pulse Resp BP Pulse Ox
98 F 85 18 118/71 100
11/03/24 11:21 11/03/24 11:51 11/03/24 11:51 11/03/24 11:51 11/03/24 11:51
Physical Exam
Physical Exam
Constitutional: No Acute Distress
Cardiovascular: Regular Rate and S1/S2
Pulmonary: Non Labored
Genito-Urinary: Wellington
Neurological: Awake and Alert
Psychological: Calm
Lab / Diagnostic Study Results
11/03/24 04:20
11/03/24 04:20
Abs Immat Gran (auto) 0.2 10^3/uL (0-0.05) H 11/03/24 04:20
Absolute Neuts (auto) 18.7 10^3/uL (1.4-6.5) H 11/03/24 04:20
Absolute Lymphs (auto) 1.5 10^3/uL (1.2-3.4) 11/03/24 04:20
Absolute Monos (auto) 0.8 10^3/uL (0.1-0.6) H 11/03/24 04:20
Absolute Basos (auto) 0.0 10^3/uL (0-0.2) 11/03/24 04:20
Immature Gran % 0.9 % (0-0.5) H 11/03/24 04:20
Neutrophils % 87.7 % (42.2-75.2) H 11/03/24 04:20
Lymphocytes % 6.8 % (20.5-51.1) L 11/03/24 04:20
Monocytes % 3.7 % (1.7-9.3) 11/03/24 04:20
Eosinophils % 0.7 % (0-6) 11/03/24 04:20
Basophils % 0.2 % (0-2) 11/03/24 04:20
PT 16.5 Sec (11.4-14.6) H 11/02/24 05:44
INR 1.30 11/02/24 05:44
Ur Squamous Epith Cells 0-2 /LPF (Few) 11/02/24 12:37
Microbiology Results
Micro:
11/03/24 11:21 Blood Culture - Pending
Blood/Venous
11/01/24 23:13 Salmonella/Shigella Culture - Preliminary
Feces/Stool Culture in Progress
Campylobacter Culture - Preliminary
Culture in Progress
Shiga Toxin Test - Pending
Stool Leukocytes - Final
11/02/24 10:13 Blood Culture - Preliminary
Blood/Venous Staphylococcus species
Gram Stain - Preliminary
11/02/24 11:31 Blood Culture - Preliminary
Blood/Venous No Growth in 24 hours- Final report to follow
11/03/24 11:00 Blood Culture - Pending
Blood/Venous
11/02/24 12:37 Urine Culture - Final
Urine NO GROWTH
11/02/24 07:41 MRSA Screen - Final
Nose No Methicillin Resistant Staphylococcus aureus isolated.
11/01/24 23:13 C. difficile GDH Antigen & Toxins - Final
Feces/Stool C. difficile antigen positive, toxin negative.
Clostridium difficile present, but toxin not detected.
Patient may be a carrier, colonized with nontoxinogenic
strain or the level of toxin in sample is below detection
limits. This information should be used in conjunction with
the patient's clinical history.
XR Abdomen 11/02/24: Grossly nonobstructive bowel gas pattern.
CXR 11/02/2024: Low lung volumes.
Left mid to lower lung thickened linear opacity most likely representing subsegmental atelectasis.
Abdomen/pelvis CT 11/02/2024: Limited evaluation of intestinal tract as a result of several factors including marked beam hardening artifact from the patient's bilateral upper extremities, motion artifact and lack of oral contrast opacification of
majority of large bowel. No intestinal obstruction or free air.
Some suspected mild thickening of nondilated loops of proximal to mid small bowel, nonspecific, could represent enteritis.
Markedly limited evaluation of the descending colon, sigmoid and rectum without oral contrast opacification and with some beam hardening artifact, some at least SUSPECTED WALL THICKENING SUCH COLITIS.
Lack of demonstrable renal excretion bilaterally compatible with ESRD and hemodialysis. Small bilateral low-attenuation renal lesions too small to characterize.
Hepatosplenomegaly.
Bilateral lower lobe subsegmental atelectasis, left greater than right, cannot exclude left lower lobe pneumonia, evaluation overall limited as a result of marked beam hardening artifact.
Cholelithiasis.
Cannot exclude small pericardial effusion, limited by beam hardening artifact.
Marked edematous changes widespread throughout the abdominal and pelvic wall.
Marked atrophy of the rectus abdominis musculature with mild relative left-sided 'bulging' of the intestinal tract.
Assessment / Plan
#Leukocytosis
# Bacteremia with Staphylococcus species ( bc form 11/02/2403/04)
- Repeat blood culture pending
- Urine culture negative
- MRSA negative
- C. difficile antigen positive, toxin negative(likely colonized with known toxigenic strain)
- Stool studies pending
- s/p 1 dose fo cftx on 11/02/24 ; Currently on Zosyn and vanco both iv and oral ; dc zosy and iv vanco
decrease dose of oral vanco to 125
repeat cbc in the am
--- NOTE | 2024-11-03 15:42 | PTCARENOTE ---
Started carafate and nepro with carb steady tube feeds per GI recommendation
[2024-11-03] MEDS: D5/0.45%NACL 1000 IV (17:14)
[2024-11-03] MEDS: FIRVANQ 125 MG TUBE (17:15)
[2024-11-03 17:23] LABS: Glucose - Point of Care 91 mg/dl (70-99)
[2024-11-03] MEDS: NSS (PRESERVATIVE FREE) 10 ML IV (22:55)
[2024-11-03] MEDS: PROTONIX IV 40 MG IV (22:55)
[2024-11-03] MEDS: ELIQUIS 2.5 MG PO (22:56)
[2024-11-03] MEDS: DILAUDID 0.25 MG IV (23:07)
[2024-11-04 00:07] LABS: Glucose - Point of Care 115 mg/dl (70-99)
[2024-11-04] MEDS: FIRVANQ 125 MG TUBE ×4 (00:57→17:28)
[2024-11-04] MEDS: NOVOLOG FLEXPEN-LOW RESISTANCE SC ×4 (01:07→17:47)
[2024-11-04 03:15] VITALS: BP 128/55
[2024-11-04 05:56] LABS: Glucose - Point of Care 135 mg/dl (70-99)
[2024-11-04 06:00] VITALS: BMI 28.8
[2024-11-04 06:31] LABS: Hematocrit 22.9 % (39.0-52.0); Hemoglobin 7.3 g/dL (13.0-18.0); Mean Corp Hgb Conc. 31.9 g/dL (33.0-37.0); Mean Corpuscular Volume 88.4 fL (80.0-94.0); Nucleated Red Blood Cells % 0 % (-); Platelet Count 198 10^3/uL (130-400); Red Cell Dist. Width 15.1 % (11.5-14.5)
[2024-11-04 07:00] VITALS: BP 155/64
[2024-11-04 07:05] LABS: ALT (SGPT) 20 U/L (0-50); AST (SGOT) 19 U/L (17-59); Albumin 2.7 g/dl (3.5-5.0); Alkaline Phosphatase 95 U/L (38-126); Blood Urea Nitrogen 41 mg/dl (9-20); Calcium 8.3 mg/dl (8.4-10.2); Carbon Dioxide 30 mmol/L (22-30); Chloride 96 mmol/L (98-107); Estimated Creatinine Clearance 35 ml/min; Glucose 116 mg/dl (70-99); Potassium 3.0 mmol/L (3.5-5.1); Sodium 131 mmol/L (135-145); Total Protein 5.8 g/dl (6.3-8.2); eGFR 31.91
--- NOTE | 2024-11-04 08:36 | W.PN.URO.CBU ---
Today's Communication / Plan
-
keep Wellington
Assessment / Plan
-
AUR
Phimosis
difficult Wellington --> functioning
Diagnosis
-
Date of Service: November 04, 2024
-
Patient Diagnosis:
AUR
Phimosis
difficult Wellington
Objective
-
Vital Signs
Temp Pulse Resp BP Pulse Ox
98.6 F 89 18 155/64 100
11/04/24 07:00 11/04/24 07:00 11/04/24 07:00 11/04/24 07:00 11/04/24 07:00
Intake and Output
11/03/24 11/04/24 11/05/24
06:59 06:59 06:59
Intake Total 1969 305 / 305
Output Total 2250 / 2250 75 / 75
Balance -280 / -230 305 / 305 -75 / -75
Intake:
IV fluids (Total) 1000 / 1050 260 / 260
D5/0.45%NaCl 1,000 ml @ 40 mls/ 760 / 800 240 / 240
hr IV .Q24H PATRICIO Rx#:[id number]
Protonix 240 / 250 20 / 20
Tube feeding 20 / 20
Feeding tube flush amount
Amount instilled into GI Tube ( 720 / 720
Total)
Gastrostomy 720 / 720
Blood Product Amount Infused ( 250 / 250
mL)
Packed Rbc Leukoreduced Unit 250 / 250
[id number]
Output:
Urine, Wellington 2250 / 2250 75 / 75
Laboratory Results
11/04/24 05:49
11/04/24 05:49
Physical Exam
-
General - well developed, well nourished, no acute distress
Chest - clear bilaterally
Abdomen - soft, non-tender, positive bowel sounds, no CVAT, no incisional pain or distention
Genitalia - normal
Rectal - normal
Skin - warm & dry with no rash
Neuro - AOx3, no motor deficits
Extremities - no clubbing, no cyanosis, no edema
Incision - clean, dry
Dressing - clean, dry, intact
--- NOTE | 2024-11-04 08:46 | W.PN.ID1 ---
Addendum entered and electronically signed by Chela Montague MD 11/04/24 12:30:
I saw and evaluated the patient. I reviewed the resident�s note and agree with findings and plan as documented in the resident�s note.
Exam: abd nontender
FMS minimal liquid stool
# Leukocytosis -trending down
. Suspect reactive due to GIB
# Upper GI bleed with blood loss anemia
# Diarrhea- resolving
# CoNS bacteremia (1 of 2 sets) = contaminant
# Recent h/o C. difficile August 2024
# ESRD on HD via HD cath
-Afebrile
-Ucx neg.
- CXR atelectasis
- Review of wound photos: sacral decubiti do not look infected
- EGD: significant gastritis
- C. dif Ag positive, toxin negative, likely colonization
stool culture pending; no shigatoxin; neg Campylobacter
Due to high risk of C. diff recurrence and current diarrhea, can continue po vancomycin at lower dose 125mg q6 x 10d course
-trend wbc
Original Note:
Date of Service
Date of Service: November 04, 2024
Patient nonverbal. No new issues per the nurse.
Today's Communication
Continue oral Vanco for now; complete total course of 10 days
Repeat CBC in the a.m.
Assessment / Plan
#Leukocytosis; now trending down; pain was reactive to GI bleed
# Bacteremia with Staphylococcus species ( bc form 11/02/2403/04)
# Upper GI bleed
# Diarrhea; recent history of C. difficile in August 2024
# ESRD on HD
- Patient remained afebrile
- Repeat blood culture pending
- Urine culture negative
- MRSA negative
- C. difficile antigen positive, toxin negative; history of positive C. difficile in August 2024
- Stool studies pending
- s/p 1 dose fo cftx on 11/02/24 ; Currently on oral vanco to 125mg
- repeat cbc in the am
- If leukocytosis trending up again will need repeat CT A/P with IV and oral contrast
Chief Complaint
-: Leukocytosis, C-diff and Bacteremia
Subjective / Review of Systems
Review of Systems: No Fever, No Chills, No Headache, No Cough, No Sputum Production, No Chest Pain, No Vomiting and Diarrhea
Vital Signs / Physical Exam
Vital Signs
Vital Signs
Temp Pulse Resp BP Pulse Ox
98.6 F 89 18 155/64 100
11/04/24 07:00 11/04/24 07:00 11/04/24 07:00 11/04/24 07:00 11/04/24 07:00
Physical Exam
Constitutional: No Acute Distress and Chronically Ill
Cardiovascular: Regular Rate and S1/S2
Pulmonary: Clear and Non Labored
Gastrointestinal: Soft, Non Tender and Other (Fecal management system)
Genito-Urinary: Wellington
Psychological: Calm
Lines: Other (AV fistula)
Objective Data
Lab Data
Lab Results
11/04/24 05:49
11/04/24 05:49
PT 16.5 Sec (11.4-14.6) H 11/02/24 05:44
INR 1.30 11/02/24 05:44
APTT 36.7 Sec (23.4-35.0) H 11/02/24 05:44
Estimated Creat Clear 35 ml/min 11/04/24 05:49
Total Bilirubin 0.4 mg/dl (0.2-1.3) 11/04/24 05:49
AST 19 U/L (17-59) 11/04/24 05:49
ALT 20 U/L (0-50) 11/04/24 05:49
Alkaline Phosphatase 95 U/L (38-126) 11/04/24 05:49
Most recent labs reviewed.
Micro Results:
11/03/24 11:21 Blood Culture - Pending
Blood/Venous
11/01/24 23:13 Salmonella/Shigella Culture - Preliminary
Feces/Stool Culture in Progress
Campylobacter Culture - Preliminary
Culture in Progress
Shiga Toxin Test - Pending
Stool Leukocytes - Final
11/02/24 10:13 Blood Culture - Preliminary
Blood/Venous Staphylococcus species
Gram Stain - Preliminary
11/02/24 11:31 Blood Culture - Preliminary
Blood/Venous No Growth in 24 hours- Final report to follow
11/03/24 11:00 Blood Culture - Pending
Blood/Venous
11/02/24 12:37 Urine Culture - Final
Urine NO GROWTH
11/02/24 07:41 MRSA Screen - Final
Nose No Methicillin Resistant Staphylococcus aureus isolated.
11/01/24 23:13 C. difficile GDH Antigen & Toxins - Final
Feces/Stool C. difficile antigen positive, toxin negative.
Clostridium difficile present, but toxin not detected.
Patient may be a carrier, colonized with nontoxinogenic
strain or the level of toxin in sample is below detection
limits. This information should be used in conjunction with
the patient's clinical history.
XR Abdomen 11/02/24: Grossly nonobstructive bowel gas pattern.
CXR 11/02/2024: Low lung volumes.
Left mid to lower lung thickened linear opacity most likely representing subsegmental atelectasis.
Abdomen/pelvis CT 11/02/2024: Limited evaluation of intestinal tract as a result of several factors including marked beam hardening artifact from the patient's bilateral upper extremities, motion artifact and lack of oral contrast opacification of
majority of large bowel. No intestinal obstruction or free air.
Some suspected mild thickening of nondilated loops of proximal to mid small bowel, nonspecific, could represent enteritis.
Markedly limited evaluation of the descending colon, sigmoid and rectum without oral contrast opacification and with some beam hardening artifact, some at least SUSPECTED WALL THICKENING SUCH COLITIS.
Lack of demonstrable renal excretion bilaterally compatible with ESRD and hemodialysis. Small bilateral low-attenuation renal lesions too small to characterize.
Hepatosplenomegaly.
Bilateral lower lobe subsegmental atelectasis, left greater than right, cannot exclude left lower lobe pneumonia, evaluation overall limited as a result of marked beam hardening artifact.
Cholelithiasis.
Cannot exclude small pericardial effusion, limited by beam hardening artifact.
Marked edematous changes widespread throughout the abdominal and pelvic wall.
Marked atrophy of the rectus abdominis musculature with mild relative left-sided 'bulging' of the intestinal tract.
[2024-11-04] MEDS: PROTONIX IV 40 MG IV ×2 (08:55→20:11)
[2024-11-04] MEDS: CARAFATE SUSPENSION 1 GM TUBE ×2 (08:55→20:11)
[2024-11-04] MEDS: NSS (PRESERVATIVE FREE) 10 ML IV ×2 (08:55→20:11)
[2024-11-04] MEDS: DAKIN'S SOLUTION 0.125% 1/4 STRENGTH 473 ML TOPICAL (08:56)
[2024-11-04] MEDS: HYDROPHOR 1 APPLIC TOPICAL (08:56)
[2024-11-04] MEDS: KCL ELIXIR 20 MEQ TUBE (09:14)
[2024-11-04] MEDS: ELIQUIS 2.5 MG PO (09:17)
--- NOTE | 2024-11-04 09:38 | CM ---
Addendum entered by Penny Zaman 11/04/24 15:26:
discussed with Key - patient to return to [facility] when stable. Gianna and RITA will assist with getting patient to another facility if she wants him placed in another facility. agreeable.
Addendum entered by Penny Zaman 11/04/24 09:43:
[facility] report #: [phone] 1st floor nurses, fax #: [phone]
Original Note:
chart reviewed
patient LTC resident at [facility]
referral in [facility]
PLAN: return to [facility] when stable
--- NOTE | 2024-11-04 10:21 | W.PN.HOSP.TC ---
Today's Communication/Plan
-
monitor off Abx
CBC in AM
replete potassium - small dose due to ESRD
Assessment / Plan
Assessment / Plan
59yo M with PMHx of ESRD on HD, Hx of c.diff, intraabdominal abscess, CVA s/p PEG and paraplegia, non-verbal, Afib on Eliquis brought from [facility] with anemia and hematemesis. S/P Kcentra in ED. FOund severe gastritis on EGD. Also Acute
urinary retention and leukocytosis, concern for C.diff related. Monitoring on oral vanco with assistance of ID, who recommended to stop IV Abx. Also POA is looking to change facility - CM to be involved
A/P:
#Acute blood loss anemia 2/2 GIB on anemia of chronic disease 2/2 ESRD
Two large bore IV, serial H&H, transfuse to keep Hgb >7
GI consult: s/p EGD - severe gastritis, repeat EGD in 2 months, replace PEG in 4 weeks (not done on this admission due to severe gastritis)
PPI, Carafate
s/p 2 units PRBC
#Diarrhea
Hx of recent C.diff
stool C.diff PCR positive and toxin neg
Empiric oral Vanco 125mg QID as per ID
#Leukocytosis
#Bacteremia
#stage 4 sacral PI - non-infected on exam
Extended Hx of of sacral wound mgmt in [facility], no significant wound infection on pictures
FMS to avoid wound contamination
abd non-tender, not distended
CT abd/pelvis showed enterocolitis
BCx 1 set with coag ng staph - contamination as per ID
repeat Bcx
Broad spectrum Abx stopped by ID on 11/03/24
Chest XR without overt pneumonia
UA with neg Ucx
#Acute urinary retention
#Phimosis
s/p Wellington
drained 2L of urine as per Urologist
Tamsulosin/Finasteride cannot be crushed for PEG -will need to be d/c on Wellington
#ESRD on HD
#Mild hypokalemia
nephrology for HD
#Minimal alk.phos elevation
Resolved
#mild relative left-sided 'bulging' of the intestinal tract
atrophy of the rectus abdominis musculature
#Dysphagia
on PEG
start diet: Nepro 1.8 continuous. 3 packs prosource. Start rate 20ml/hr, increase 20ml q 8hrs to goal of 40ml/hr. Flush 25ml. Provides 880ml total volume, 1584 calories + 180 calories prosource = 1764 calories (98% needs), 71g protein + 45g protein
prosource = 116g protein (108% needs), 639ml free fluid + 600ml h2o flush = 1239ml.
#Hx of CVA with residual aphasia and paraplegia
COnt ELiquis on 11/03/24 as per GI
#Afib on eliquis
cont tele
decrease Eliquis to 2.5mg in view of ESRD
DVT ppx SCDs
Full code
#Bilateral atelectasis
2/2 bedbound status
cannot follow instruction for IS approprietly
#Asymptomatic cholelithiasis
#Hepatosplenomegaly
Outpatient follow up
I have spent at least 51min of critical care time reviewing chart, test results, communication with consultants, POA and providing direct patient care
Anticipated Discharge: > 48 hours
Subjective/Interval History
-
Date of Service: November 04, 2024
Objective Data
-
Labs:
Laboratory Results
11/04/24
05:49
WBC 17.1 H
Hgb 7.3 L
Hct 22.9 L
Plt Count 198
Sodium 131 L
Potassium 3.0 L
Chloride 96 L
Carbon Dioxide 30
BUN 41 H
Creatinine 2.3 H
Glucose 116 H
Calcium 8.3 L
Total Bilirubin 0.4
AST 19
ALT 20
Alkaline Phosphatase 95
Vital Signs:
Vital Signs
Temp Pulse Resp BP Pulse Ox
98.6 F 89 18 155/64 100
11/04/24 07:00 11/04/24 07:00 11/04/24 07:00 11/04/24 07:00 11/04/24 07:00
I&O
11/03/24 11/04/24 11/05/24
06:59 06:59 06:59
Intake Total 1969 305 / 305
Output Total 2250 / 2250 75 / 75
Balance -280 / -230 305 / 305 -75 / -75
Review of Systems
-
Unable to obtain full review of systems at this time due to: Patient Non-verbal
Physical Exam
-
HEENT: Normocephalic
Respiratory: Clear to Auscultation
Cardiac: Regular Rhythm
GI: Soft, Nontender, Nondistended and Peg Tube
Rectal: Other (FMS)
Musculoskeletal: No Clubbing, No Cyanosis and No Edema
Skin: Warm
Neuro: Awake and Alert
Psych: Calm
[2024-11-04 11:00] VITALS: BP 152/58
--- NOTE | 2024-11-04 11:36 | PN.CDI ---
CDI
- -
CDI:
Physician Documentation Request
Admit Date: 11/02/24 00:52
Dear Doctor Rene,
Clinical Indicators:
Patient admitted with acute GI bleed; bedbound status at SNF.
11/02 [facility] RN note,'Patient admitted with ...L ischium with healing suspect stage 2 vs stage 3...'
Treatment: Silicone border foam dressing
Physician documentation of the type and location of wounds is required for compliant documentation. Based on the above clinical findings and your assessment, please provide the following in your progress note:
1. Location of the ulcer/wound, including laterality.
2. Type (etiology) of ulcer/wound:
- Pressure (decubitus) ulcer
- Other
3. If a pressure ulcer, please also include the stage* of the ulcer:
- Stage 1 - Skin intact, non-blanchable redness
- Stage 2 - Partial thickness loss of dermis, includes intact or open blister
- Stage 3 - Full thickness tissue not including bone, tendon or muscle
- Stage 4 - Full thickness tissue loss, including exposed bone, tendon or muscle
- Unstageable - Full thickness loss in which the base of the ulcer is covered by slough (yellow, lambert, mariee, green or brown) and/or eschar (lambert, brown or black) in the wound bed.
- Unable to determine
Use of terms such as suspected, likely, concern for, or probable (associated with a specific diagnosis that is being evaluated, monitored, or treated as if it exists) are acceptable and can be coded in the inpatient setting, when documented at the
time of discharge.
Thank you,
NORBERT Villarreal RN
CDI Specialist
available via tiger text
Please use your independent medical judgment in providing your response.
*Source: National Pressure Ulcer Advisory Panel (NPUAP)
--- NOTE | 2024-11-04 11:44 | PN.CDI ---
CDI
- -
CDI:
Physician Documentation Request
Admit Date: 11/02/24 00:52
Dear Doctor Rene,
Clinical Indicators:
Patient admitted with acute blood loss anemia due to GI bleed.
Home medications include Eliquis 5 mg BID
11/02 Kcentra IV x 1.
11/03 EGD - Erythematous mucosa in the gastric body, fundus, and antrum...Suspect this was the cause of the hematemesis and anemia.'
Please clarify the likely relationship between the GI bleeding and Eliquis use:
Yes, GI bleeding is related to/associated with/exacerbated by Eliquis use
No, GI bleeding is not related to/associated with/exacerbated by Eliquis use but it is due to gastritis only.
Unable to determine
Use of terms such as suspected, likely, concern for, or probable (associated with a specific diagnosis that is being evaluated, monitored, or treated as if it exists) are acceptable and can be coded in the inpatient setting, when documented at the
time of discharge.
Thank you,
NORBERT Villarreal RN
CDI Specialist
available via tiger text
Please use your independent medical judgment in providing your response.
[2024-11-04 12:06] LABS: Glucose - Point of Care 146 mg/dl (70-99)
--- NOTE | 2024-11-04 12:19 | W.PN.GI.CBS2 ---
Addendum entered and electronically signed by Santy Silvestre MD 11/04/24 15:17:
I saw and examined the patient.
The CHANGE MANAGEMENT CONSULTANT or PA's note was reviewed and I agree with the note.
Comment: 59-year-old male past medical history of CVA with residual paraplegia and aphasia status post trach now removed, PEG placed March 2023 with history of intra-abdominal abscess with necrotizing infection on discussion with most likely
due to buried bumper, PEG most recently changed January 2024, A-fib on Eliquis, diabetes, CHF (no details known; EKG without overt signs of LV dilation), and renal disease on dialysis Friday, history of anemia (unclear baseline
Hb), history of C. difficile 2 months ago presenting with hematemesis, diarrhea, leukocytosis.
Had EGD 11/03 had severe gastritis. ? related to sevelamar
Recommendations:
- Continue PPI BID until repeat EGD
- Plan sucralfate bid 10 days
- Plan EGD likely in 8 weeks, follow up path, given severity of gastritis
- Camila reached out to nephrology no substitue for sevelamar
- Continue Eliquis
- For diarrhea, on vanco CDI Ag + toxin negative, d/w ID on vanco
- Continue tube feeds
- Plan outpatient follow up with us in 4 weeks vs another GI doctor (they may be [facility])
- Will need change of G tube which I held off on yesterday given severity of gastritis
This was seen at the correction, details are from the chart. He was also having diarrhea. Hemodynamically stable in ER and continues to be so here in the hospital. Hemoglobin on admission was 6.6, he has gotten 2 units of blood and his repeat
hemoglobin is 8.6. He has had no episodes of hematemesis here in the hospital. We did a bedside aspirate of the PEG and there was no blood. Platelet count is 216. He was given Kcentra in the emergency room. He is on a Protonix drip.
Additionally, he was found to have a leukocytosis with white blood cell count of 16. Abd/chest Xray done was normal. Dark brown liquid currently in stool collection kit.
On exam, he is nonverbal. His belly is somewhat distended, nontender. Plan for CT for further evaluation given the abdominal distention, leukocytosis, and pending findings (ensure no subtle PUD perforation, etc) likely would benefit from upper
endoscopy tomorrow. If has further ongoing overt bleeding, would proceed with upper endoscopy sooner. Risk, alternatives, benefits of upper endoscopy discussed with patient's and she is agreeable, risks including but not limited to bleeding,
infection, perforation. I will discuss with the patient's tomorrow, we can also exchange the PEG tomorrow during the upper endoscopy. In the interim, recommend to continue PPI, continue to trend hemoglobin. In regards to his diarrhea, C.
difficile antigen positive and toxin negative. This could be due to his recent C. difficile but I will also check stool white blood cell count. Stool culture pending. If diarrhea persist with no clear etiology, may benefit from Dificid. Discussed
with hospitalist; also d/w gin operator regarding timing of HD with EGD tmwr.
Original Note:
Today's Communication / Plan
-
s/p EGD 11/03 with erythema/contact bleeding
Etiology unclear
biopsy pending
Pt is on chronic Sevelamer will review with renal as some GI effects per up if can be related and if any other alternative
cont PPI BID
cont carafate BID
slow tube feed advancement
repeat EGD in 2 months with peg change will review timing with Dr. Silvestre
ID following-- cont Vanco with C-diff + tox neg, stool WBC neg on admission other cx neg
remain on Eliquis
cont to follow hbg down to 7.3 today cont to follow with anticoagulation
if cont anemia need to consider colonoscopy as no screening in past but would try to improve upper GI irritation prior to prep if able
Assessment / Plan
-
Jordon is a 59 year old man with a past medical history significant for CVA with residual paraplegia/aphasia, s/p trach (now removed), PEG tube placed in Mar 2023 (last changed January 2024), w/ h/o intraabdominal abscess with necrotizing infection
requiring multiple surgeries and removal of PEG placement (May 2023), afib (on Eliquis), NIDDM, CHF (unsure of last echo), ESRD on Dialysis MWFr (R IJ Permacath), hypertension who presented from [place] with complaints of 2 episodes of blood
emesis and brown liquid stool in ED.
11/03/24 EGD protano - Normal esophagus.
- Erythematous mucosa in the gastric body, fundus, and antrum.
Biopsied. Suspect this was the cause of the hematemesis and anemia.
- Normal examined duodenum.
11/02/24 CT a/p IV and oral
Limited evaluation of intestinal tract as a result of several factors including marked beam hardening artifact from the patient's bilateral upper extremities, motion artifact and lack of oral contrast opacification of majority of large bowel. No
intestinal obstruction or free air.
Some suspected mild thickening of nondilated loops of proximal to mid small bowel, nonspecific, could represent enteritis.
Markedly limited evaluation of the descending colon, sigmoid and rectum without oral contrast opacification and with some beam hardening artifact, some at least SUSPECTED WALL THICKENING SUCH COLITIS.
Lack of demonstrable renal excretion bilaterally compatible with ESRD and hemodialysis. Small bilateral low-attenuation renal lesions too small to characterize.
Hepatosplenomegaly.
Bilateral lower lobe subsegmental atelectasis, left greater than right, cannot exclude left lower lobe pneumonia, evaluation overall limited as a result of marked beam hardening artifact.
Cholelithiasis.
Cannot exclude small pericardial effusion, limited by beam hardening artifact.
Marked edematous changes widespread throughout the abdominal and pelvic wall.
Marked atrophy of the rectus abdominis musculature with mild relative left-sided 'bulging' of the intestinal tract.
ASSESSMENT:
# EGD with marked erythematous mucosa with contact bleeding
# limited Ct with possible enteritis/colitis
#Bloody Emesis
#Diarrhea with bleeding
# c-diff + tox neg
#Anemia, multifactorial (Acute Blood Loss, CKD, probable AMBER)
#H/o CVA with dysphagia, aphasia, paraplegia
#s/p tracheostomy
#Leukocytosis
#PEG tube/chronic dysphagia
#ESRD on Dialysis MWFr
#Afib
#CHF (unsure of last EF)
#NIDDM
#Hypertension
#difficulty griffiths -urology following
PLAN:
s/p EGD 11/03 with erythema/contact bleeding
Etiology unclear
biopsy pending
Pt is on chronic Sevelamer will review with renal as some GI effects per up if can be related and if any other alternative
cont PPI BID
cont carafate BID
slow tube feed advancement
repeat EGD in 2 months with peg change will review timing with Dr. Silvestre
ID following-- cont Vanco with C-diff + tox neg, stool WBC neg on admission other cx neg
remain on Eliquis
cont to follow hbg down to 7.3 today cont to follow with anticoagulation
if cont anemia need to consider colonoscopy as no screening in past but would try to improve upper GI irritation prior to prep if able
Subjective
Subjective
Date of Service: November 04, 2024
still with some abdominal pain but tolerating low dose feeds brown/burgundy stool
Objective
Data Reviewed
Laboratory Data:
Laboratory Results
11/04/24 05:49
11/04/24 05:49
Laboratory Results
PT 16.5 Sec (11.4-14.6) H 11/02/24 05:44
INR 1.30 11/02/24 05:44
APTT 36.7 Sec (23.4-35.0) H 11/02/24 05:44
Magnesium 2.3 mg/dl (1.6-2.3) 11/03/24 04:20
Total Bilirubin 0.4 mg/dl (0.2-1.3) 11/04/24 05:49
AST 19 U/L (17-59) 11/04/24 05:49
ALT 20 U/L (0-50) 11/04/24 05:49
Alkaline Phosphatase 95 U/L (38-126) 11/04/24 05:49
Lipase 262 U/L (23-300) 11/01/24 23:13
Vital Signs and I&O:
Vital Signs
Temp Pulse Resp BP Pulse Ox
98.1 F 83 18 152/58 100
11/04/24 11:00 11/04/24 11:00 11/04/24 11:00 11/04/24 11:00 11/04/24 11:00
I&O
11/03/24 11/04/24 11/05/24
06:59 06:59 06:59
Intake Total 1969 305 / 305
Output Total 2250 / 2250 75 / 75
Balance -280 / -230 305 / 305 -75 / -75
Physical Exam
Physical Exam
HEENT: Anicteric and Other (dry mouth)
Cardiology: Normal Sinus Rhythm
Pulmonary: Clear
GI: Soft, Non Distended, Tender (mild grimace with palpation ) and Other (peg intact- no buried bumper, minimal drainage, large abdominal scar )
Neuro: Other (non verbal in exam )
[2024-11-04] MEDS: D5/0.45%NACL 1000 IV (12:59)
[2024-11-04] MEDS: DILAUDID 0.25 MG IV (13:00)
--- NOTE | 2024-11-04 13:21 | W.PN.NEPH.PH ---
Today's Communication / Plan
-
HD tomorrow
Assessment/Plan
-
IMP:
Acute blood loss anemia 2/2 GIB on anemia of chronic disease 2/2 ESRD
Diarrhea
Hx of recent C.diff
Leukocytosis
ESRD on HD-MWF [facility]
left UE AVF
right chest wall catheter
Mild hypokalemia
Dysphagia on PEG
Hx of CVA with residual aphasia and paraplegia
Urine retention
NIDDM
Plan:
A/w GIB, anemia s/p PRBC
Status post EGD. Results discussed with GI as to whether or not this could be binder related
I am not sure what other binders are available from this patient's facility in regards to hyperphosphatemia management
GI consulted on PPI gtt,
HD tomorrow, will utilize 4K bath due to ongoing hypokalemia which was repleted today
Anemia worsening NIVIA escalated
noted U retention of 2lit, agree with CT , griffiths could not be passed by nursing
-
-
Date of Service: November 04, 2024
CC / HPI / ROS
-
Chief Complaint:
ESRD
History of Present Illness:
ESRD MWF
hemodynamically stable
Anemia worsening
Review of Systems:
No reported shortness of breath or chest pain
Griffiths with only 75 cc of urine
Labs
-
Labs:
WBC 17.1 10^3/uL (4.8-10.8) H 11/04/24 05:49
RBC 2.59 10^6/uL (4.70-6.10) L 11/04/24 05:49
Hgb 7.3 g/dL (13.0-18.0) L 11/04/24 05:49
Hct 22.9 % (39.0-52.0) L 11/04/24 05:49
Plt Count 198 10^3/uL (130-400) 11/04/24 05:49
Sodium 131 mmol/L (135-145) L 11/04/24 05:49
Potassium 3.0 mmol/L (3.5-5.1) L 11/04/24 05:49
Chloride 96 mmol/L (98-107) L 11/04/24 05:49
Carbon Dioxide 30 mmol/L (22-30) 11/04/24 05:49
BUN 41 mg/dl (9-20) H 11/04/24 05:49
Creatinine 2.3 mg/dL (0.7-1.3) H 11/04/24 05:49
eGFR 31.91 11/04/24 05:49
Glucose 116 mg/dl (70-99) H 11/04/24 05:49
Calcium 8.3 mg/dl (8.4-10.2) L 11/04/24 05:49
Albumin 2.7 g/dl (3.5-5.0) L 11/04/24 05:49
Physical Exam
-
Vital Signs:
Vital Signs
Temp Pulse Resp BP Pulse Ox
98.1 F 83 18 152/58 100
11/04/24 11:00 11/04/24 11:00 11/04/24 11:00 11/04/24 11:00 11/04/24 11:00
Cardiovascular:: Regular rate and rhythm
Respiratory:: Bilateral: Coarse
Lung Excursion:: Normal
Abdomen:: Nontender
Bowel Sounds:: Decreased
Extremity Edema:: None: Bilateral:
Griffiths Catheter: Yes
[2024-11-04 15:00] VITALS: BP 148/58
[2024-11-04 17:31] LABS: Glucose - Point of Care 123 mg/dl (70-99)
[2024-11-04 19:05] LABS: Hepatitis B Surface Antigen Negative (Negative)
[2024-11-04 19:36] VITALS: BP 145/56
[2024-11-04] MEDS: ELIQUIS 2.5 MG TUBE (20:11)
--- NOTE | 2024-11-04 21:14 | PTCARENOTE ---
Pt tolerating tube feeding. Advanced rate to 40 mL/hr per MD order.
[2024-11-04 23:15] VITALS: BP 140/54
[2024-11-05] VITALS (7 sets, daily range): BP systolic 114–157; BP diastolic 41–75; BMI 28.8
[2024-11-05] MEDS: FIRVANQ 125 MG TUBE ×5 (00:04→23:46)
[2024-11-05 00:12] LABS: Glucose - Point of Care 125 mg/dl (70-99)
[2024-11-05] MEDS: NOVOLOG FLEXPEN-LOW RESISTANCE SC ×4 (00:58→18:34)
[2024-11-05 05:44] LABS: Glucose - Point of Care 113 mg/dl (70-99)
[2024-11-05 07:02] LABS: Hematocrit 25.2 % (39.0-52.0); Hemoglobin 8.1 g/dL (13.0-18.0); Mean Corp Hgb Conc. 32.1 g/dL (33.0-37.0); Mean Corpuscular Volume 90.0 fL (80.0-94.0); Nucleated Red Blood Cells % 0 % (-); Platelet Count 217 10^3/uL (130-400); Red Cell Dist. Width 14.8 % (11.5-14.5)
[2024-11-05 07:20] LABS: ALT (SGPT) 19 U/L (0-50); AST (SGOT) 18 U/L (17-59); Albumin 2.6 g/dl (3.5-5.0); Alkaline Phosphatase 111 U/L (38-126); Blood Urea Nitrogen 45 mg/dl (9-20); Calcium 8.3 mg/dl (8.4-10.2); Carbon Dioxide 29 mmol/L (22-30); Chloride 97 mmol/L (98-107); Estimated Creatinine Clearance 27 ml/min; Glucose 134 mg/dl (70-99); Potassium 3.4 mmol/L (3.5-5.1); Sodium 132 mmol/L (135-145); Total Protein 5.7 g/dl (6.3-8.2); eGFR 23.20
--- NOTE | 2024-11-05 08:38 | W.PN.ID1 ---
Addendum entered and electronically signed by Chela Montague MD 11/05/24 12:54:
I saw and evaluated the patient. I reviewed the resident�s note and agree with findings and plan as documented in the resident�s note.
# Leukocytosis - continues to trend down
. Suspect reactive due to GIB
# Upper GI bleed with blood loss anemia
# Diarrhea- resolving
# CoNS bacteremia (1 of 2 sets) = contaminant
# Recent h/o C. difficile August 2024
# ESRD on HD via HD cath
-Afebrile
-Ucx neg.
- CXR atelectasis
- Review of wound photos: sacral decubiti do not look infected
- EGD: significant gastritis
- C. dif Ag positive, toxin negative, likely colonization
stool culture negative; no shigatoxin
Due to high risk of C. diff recurrence and current diarrhea, can continue po vancomycin at lower dose 125mg q6 x 10d course through 11/12/24.
-trend wbc
Original Note:
Date of Service
Date of Service: November 05, 2024
AFVSS. Patient sleepy; on HD
Today's Communication
Continue oral Vanco for now; complete total course of 10 days
Repeat CBC in the a.m.
Assessment / Plan
# Leukocytosis; now trending down; probably was reactive to GI bleed
# Bacteremia with Staphylococcus species ( bc form 11/02/2403/04); likely contamination
# Upper GI bleed
# Diarrhea; recent history of C. difficile in August 2024
# ESRD on HD
- Patient remained afebrile
- Repeat blood culture pending; negative to date
- Urine culture negative
- MRSA negative
- Review of wound photos: sacral decubiti do not look infected
- C. difficile antigen positive, toxin negative; history of positive C. difficile in August 2024
- Stool studies pending
- s/p 1 dose fo cftx on 11/02/24 ; Currently on oral vanco to 125mg q6; due to high risk of recurrence and current diarrhea can continue it for total of 10 days
- repeat cbc in the am
- If leukocytosis trending up again will need repeat CT A/P with IV and oral contrast
Chief Complaint
-: Leukocytosis, C-diff and Bacteremia
Subjective / Review of Systems
Review of Systems: No Fever, No Chills, No Headache, No Cough, No Sputum Production, No Chest Pain, No Vomiting and Diarrhea
Vital Signs / Physical Exam
Vital Signs
Vital Signs
Temp Pulse Resp BP Pulse Ox
98.2 F 84 18 157/72 99
11/05/24 07:00 11/05/24 07:00 11/05/24 07:00 11/05/24 07:00 11/05/24 07:00
Physical Exam
Constitutional: Comfortable
Cardiovascular: Regular Rate and S1/S2
Pulmonary: Non Labored
Gastrointestinal: Non Distended and Other (FMS)
Genito-Urinary: [place]
Neurological: Other (Sleepy)
Psychological: Calm
Lines: Other (AV fistula)
Objective Data
Lab Data
Lab Results
11/05/24 06:32
11/05/24 06:32
PT 16.5 Sec (11.4-14.6) H 11/02/24 05:44
INR 1.30 11/02/24 05:44
APTT 36.7 Sec (23.4-35.0) H 11/02/24 05:44
Estimated Creat Clear 27 ml/min 11/05/24 06:32
Total Bilirubin 0.4 mg/dl (0.2-1.3) 11/05/24 06:32
AST 18 U/L (17-59) 11/05/24 06:32
ALT 19 U/L (0-50) 11/05/24 06:32
Alkaline Phosphatase 111 U/L (38-126) 11/05/24 06:32
Most recent labs reviewed.
Micro Results:
11/01/24 23:13 Salmonella/Shigella Culture - Preliminary
Feces/Stool Culture in Progress
Campylobacter Culture - Final
No Campylobacter species isolated.
Shiga Toxin Test - Final
No E. coli Shiga Toxin 1 or 2 detected.
Stool Leukocytes - Final
11/02/24 11:31 Blood Culture - Preliminary
Blood/Venous No Growth in 48 hours- Final report to follow
11/03/24 11:21 Blood Culture - Preliminary
Blood/Venous No Growth in 24 hours- Final report to follow
11/03/24 11:00 Blood Culture - Preliminary
Blood/Venous No Growth in 24 hours- Final report to follow
11/02/24 10:13 Blood Culture - Preliminary
Blood/Venous Coagulase neg. staphylococcus
Additional testing on request
Gram Stain - Preliminary
11/02/24 12:37 Urine Culture - Final
Urine NO GROWTH
11/02/24 07:41 MRSA Screen - Final
Nose No Methicillin Resistant Staphylococcus aureus isolated.
11/01/24 23:13 C. difficile GDH Antigen & Toxins - Final
Feces/Stool C. difficile antigen positive, toxin negative.
Clostridium difficile present, but toxin not detected.
Patient may be a carrier, colonized with nontoxinogenic
strain or the level of toxin in sample is below detection
limits. This information should be used in conjunction with
the patient's clinical history.
XR Abdomen 11/02/24: Grossly nonobstructive bowel gas pattern.
CXR 11/02/2024: Low lung volumes.
Left mid to lower lung thickened linear opacity most likely representing subsegmental atelectasis.
Abdomen/pelvis CT 11/02/2024: Limited evaluation of intestinal tract as a result of several factors including marked beam hardening artifact from the patient's bilateral upper extremities, motion artifact and lack of oral contrast opacification of
majority of large bowel. No intestinal obstruction or free air.
Some suspected mild thickening of nondilated loops of proximal to mid small bowel, nonspecific, could represent enteritis.
Markedly limited evaluation of the descending colon, sigmoid and rectum without oral contrast opacification and with some beam hardening artifact, some at least SUSPECTED WALL THICKENING SUCH COLITIS.
Lack of demonstrable renal excretion bilaterally compatible with ESRD and hemodialysis. Small bilateral low-attenuation renal lesions too small to characterize.
Hepatosplenomegaly.
Bilateral lower lobe subsegmental atelectasis, left greater than right, cannot exclude left lower lobe pneumonia, evaluation overall limited as a result of marked beam hardening artifact.
Cholelithiasis.
Cannot exclude small pericardial effusion, limited by beam hardening artifact.
Marked edematous changes widespread throughout the abdominal and pelvic wall.
Marked atrophy of the rectus abdominis musculature with mild relative left-sided 'bulging' of the intestinal tract.
[2024-11-05] MEDS: RETACRIT 10000 UNITS IV (08:42)
--- NOTE | 2024-11-05 09:04 | W.PN.URO.CBU ---
Today's Communication / Plan
-
keep Wellington until pt is OOB
Assessment / Plan
-
AUR
Phimosis
difficult Wellington --> functioning
Diagnosis
-
Date of Service: November 05, 2024
-
Patient Diagnosis:
AUR
Phimosis
difficult Wellington
Objective
-
Vital Signs
Temp Pulse Resp BP Pulse Ox
98.2 F 84 18 157/72 99
11/05/24 07:00 11/05/24 07:00 11/05/24 07:00 11/05/24 07:00 11/05/24 07:00
Intake and Output
11/04/24 11/05/24 11/06/24
06:59 06:59 06:59
Intake Total 305 / 305 760 / 760
Output Total 250 / 250
Balance 305 / 305 510 / 510
Intake:
Oral fluids 0 / 0
IV fluids (Total) 260 / 260
D5/0.45%NaCl 1,000 ml @ 40 mls/ 240 / 240
hr IV .Q24H PATRICIO Rx#:[id number]
Protonix 20 / 20
Tube feeding 20 / 20 460 / 460
Feeding tube flush amount 300 / 300
Output:
Urine, Wellington 250 / 250
Laboratory Results
11/05/24 06:32
11/05/24 06:32
Physical Exam
-
Genitalia - Wellington draining melania urine
[2024-11-05] MEDS: HEPARIN 3600 UNITS INTRACATH (10:46)
--- NOTE | 2024-11-05 10:52 | W.PN.GI.CBS2 ---
Addendum entered and electronically signed by Tammy Slade DO 11/05/24 14:26:
Patient seen and examined independently of the medical insurance coder. I was available and discussed the H&P and assessment and plan.
11/05/2024 -patient is being treated for C. difficile colitis with vancomycin.
Please chart the number of stools per day. Nothing charted from yesterday or today.
hgb stable after starting eliquis on repeat
Tube feeds were clogged today likely from the phosphate binder -make sure to flush after the phosphate binder really well
-- Declog it with a brush
Will need eventual tube replacement which is planned for outpatient when we repeat his upper endoscopy
Original Note:
Today's Communication / Plan
-
c/w abx per ID
c/w tube feeds
Set up OP GI follow up for repeat EGD and PEG change
Assessment / Plan
-
Jordon is a 59 year old man with a past medical history significant for CVA with residual paraplegia/aphasia, s/p trach (now removed), PEG tube placed in Mar 2023 (last changed January 2024), w/ h/o intraabdominal abscess with necrotizing infection
requiring multiple surgeries and removal of PEG placement (May 2023), afib (on Eliquis), NIDDM, CHF (unsure of last echo), ESRD on Dialysis MWFr (R IJ Permacath), hypertension who presented from [place] with complaints of 2 episodes of blood
emesis and brown liquid stool in ED.
11/03/24 EGD protano - Normal esophagus.
- Erythematous mucosa in the gastric body, fundus, and antrum.
Biopsied. Suspect this was the cause of the hematemesis and anemia.
- Normal examined duodenum.
#EGD with marked erythematous mucosa with contact bleeding
#Limited Ct with possible enteritis/colitis
#Bloody Emesis
#Anemia, multifactorial (Acute Blood Loss, CKD, probable AMBER)
s/p EGD 11/03 with significant gastritis of unclear etiology, biopsies pending. PEG not changed at that time due to significant gastritis.
Pt is on chronic Sevelamer, will review with renal as some GI effects per up if can be related and if any other alternative
C/w PPI BID, and carafate BID
Repeat hgb this am stable at 8.1 after restarting Eliquis. transfuse to keep hgb >7
GI to arrange 3-4 week follow up. Will EGD with peg change in 8 weeks
#Diarrhea with bleeding
#C-diff + tox neg
ID following -- cont Vanco for 10d course with C-diff + tox neg, stool WBC neg on admission. Other stool cultures negative
If anemia continues, would need to consider colonoscopy as no screening in past, but would try to improve upper GI irritation prior to prep if able
#PEG tube/chronic dysphagia
C/w slow tube feed advancement
Subjective
Subjective
Date of Service: November 05, 2024
No acute events overnight. Patient receiving Dialysis. Still having dark liquid BMs, but no bright red blood.
Objective
Data Reviewed
Laboratory Data:
Laboratory Results
11/05/24 06:32
11/05/24 06:32
Laboratory Results
PT 16.5 Sec (11.4-14.6) H 11/02/24 05:44
INR 1.30 11/02/24 05:44
APTT 36.7 Sec (23.4-35.0) H 11/02/24 05:44
Magnesium 2.3 mg/dl (1.6-2.3) 11/03/24 04:20
Total Bilirubin 0.4 mg/dl (0.2-1.3) 11/05/24 06:32
AST 18 U/L (17-59) 11/05/24 06:32
ALT 19 U/L (0-50) 11/05/24 06:32
Alkaline Phosphatase 111 U/L (38-126) 11/05/24 06:32
Lipase 262 U/L (23-300) 11/01/24 23:13
Vital Signs and I&O:
Vital Signs
Temp Pulse Resp BP Pulse Ox
98.2 F 84 18 157/72 99
11/05/24 07:00 11/05/24 07:00 11/05/24 07:00 11/05/24 07:00 11/05/24 07:00
I&O
11/04/24 11/05/24 11/06/24
06:59 06:59 06:59
Intake Total 305 / 305 760 / 760
Output Total 250 / 250
Balance 305 / 305 510 / 510
Physical Exam
Physical Exam
HEENT: Anicteric and Moist mucous membranes
Cardiology: Normal Sinus Rhythm, S1 and S2
Pulmonary: Clear
GI: Soft, Non Distended, Non Tender and Other (normal appearing PEG tube)
Extremities: No Edema and Warm
--- NOTE | 2024-11-05 11:03 | W.PN.NEPH.HD ---
Assessment
-
pt seen during HD
vitals stable
high k bath for hypokalemia
CVC function fine
Progress Note - Hemodialysis
-
Date of Service: November 05, 2024
Duration: 30 minutes and 3 hours
Potassium Bath: 3
Calcium Bath: 2.5
Opti-Dialyzer: 160
Ultrafiltration: Other (2-2.5kg)
Blood Flow: 400
Dialysate Flow: 600
Heparin: no
EPO: [id number]
--- NOTE | 2024-11-05 11:20 | W.PN.HOSP.TC ---
Addendum entered and electronically signed by Kavon López MD 11/05/24 12:08:
Bleeding most liekly exacerbated by ELqiuis
#L ischium with healing suspect stage 2 vs stage 3
Wound care
Original Note:
Today's Communication/Plan
-
DIRECTOR OF INTEGRATED MARKETING today
If WBC continues to improve and no new fevers - possible d/c in the next 24h
HD today
Assessment / Plan
Assessment / Plan
59yo M with PMHx of ESRD on HD, Hx of c.diff, intraabdominal abscess, CVA s/p PEG and paraplegia, non-verbal, Afib on Eliquis brought from [facility] SN[facility] with anemia and hematemesis. S/P Kcentra in ED. FOund severe gastritis on EGD. Also Acute
urinary retention ([place] placed) and leukocytosis, concern for C.diff related. Monitoring on oral vanco with assistance of ID, who recommended to stop IV Abx. Also POA is looking to change facility - CM discussed in details with POA - patient to
return to [facility] where CM and high school social science teacher will assist with eventual transfer to new facility.
A/P:
#Acute blood loss anemia 2/2 GIB on anemia of chronic disease 2/2 ESRD
Two large bore IV, serial H&H, transfuse to keep Hgb >7
GI consult: s/p EGD - severe gastritis, repeat EGD in 2 months, replace PEG in 4 weeks (not done on this admission due to severe gastritis)
PPI, Carafate
s/p 2 units PRBC
#Diarrhea
Hx of recent C.diff
stool C.diff PCR positive and toxin neg
Empiric oral Vanco 125mg QID as per ID
#Leukocytosis
#Bacteremia
#stage 4 sacral PI - non-infected on exam
Extended Hx of of sacral wound mgmt in [facility], no significant wound infection on pictures
FMS to avoid wound contamination
abd non-tender, not distended
CT abd/pelvis showed enterocolitis
BCx 1 set with coag ng staph - contamination as per ID
repeat Bcx
Broad spectrum Abx stopped by ID on 11/03/24
Chest XR without overt pneumonia
UA with neg Ucx
#Acute urinary retention
#Phimosis
s/p [place]
drained 2L of urine as per Urologist
Tamsulosin/Finasteride cannot be crushed for PEG -will need to be d/c on [place]
#ESRD on HD
#Mild hypokalemia
nephrology for HD
#Minimal alk.phos elevation
Resolved
#mild relative left-sided 'bulging' of the intestinal tract
atrophy of the rectus abdominis musculature
#Dysphagia
on PEG
start diet: Nepro 1.8 continuous. 3 packs prosource. Start rate 20ml/hr, increase 20ml q 8hrs to goal of 40ml/hr. Flush 25ml. Provides 880ml total volume, 1584 calories + 180 calories prosource = 1764 calories (98% needs), 71g protein + 45g protein
prosource = 116g protein (108% needs), 639ml free fluid + 600ml h2o flush = 1239ml.
#Hx of CVA with residual aphasia and paraplegia
COnt ELiquis on 11/03/24 as per GI
#Afib on eliquis
cont tele
decrease Eliquis to 2.5mg in view of ESRD
DVT ppx SCDs
Full code
#Bilateral atelectasis
2/2 bedbound status
cannot follow instruction for IS approprietly
#Asymptomatic cholelithiasis
#Hepatosplenomegaly
Outpatient follow up
I have spent at least 36min of critical care time reviewing chart, test results, communication with consultants, POA and providing direct patient care
Anticipated Discharge: Within 24 hours
Subjective/Interval History
-
Date of Service: November 05, 2024
Objective Data
-
Labs:
Laboratory Results
11/05/24
06:32
WBC 15.9 H
Hgb 8.1 L
Hct 25.2 L
Plt Count 217
Sodium 132 L
Potassium 3.4 L
Chloride 97 L
Carbon Dioxide 29
BUN 45 H
Creatinine 3.0 H
Glucose 134 H
Calcium 8.3 L
Total Bilirubin 0.4
AST 18
ALT 19
Alkaline Phosphatase 111
Vital Signs:
Vital Signs
Temp Pulse Resp BP Pulse Ox
98.2 F 84 18 157/72 99
11/05/24 07:00 11/05/24 07:00 11/05/24 07:00 11/05/24 07:00 11/05/24 07:00
I&O
11/04/24 11/05/24 11/06/24
06:59 06:59 06:59
Intake Total 305 / 305 760 / 760
Output Total 250 / 250
Balance 305 / 305 510 / 510
Review of Systems
-
Unable to obtain full review of systems at this time due to: Patient Non-verbal
Physical Exam
-
General: No Apparent Distress
Respiratory: Clear to Auscultation
Cardiac: Regular Rhythm
GI: Soft, Nontender and Nondistended
Skin: Warm
Neuro: Awake and Alert
Psych: Calm
[2024-11-05] MEDS: HYDROPHOR 1 APPLIC TOPICAL (11:29)
[2024-11-05] MEDS: DAKIN'S SOLUTION 0.125% 1/4 STRENGTH 473 ML TOPICAL (11:29)
[2024-11-05] MEDS: PROTONIX IV 40 MG IV ×2 (11:37→19:30)
[2024-11-05] MEDS: NSS (PRESERVATIVE FREE) 10 ML IV ×2 (11:37→19:30)
[2024-11-05 12:35] LABS: Glucose - Point of Care 130 mg/dl (70-99)
[2024-11-05] MEDS: CARAFATE SUSPENSION 1 GM TUBE ×2 (13:44→19:29)
[2024-11-05] MEDS: ELIQUIS 2.5 MG TUBE ×2 (13:44→19:29)
--- NOTE | 2024-11-05 14:51 | CM ---
Patient seen at bedside
dialysis today
updated Gianna at [facility]
looking at another facility, discussed again that Gianna & RITA from [facility] will assist with transition
PLAN: [facility] [place]
[facility] report #: [phone] 1st floor nurses, fax #: [phone]
--- NOTE | 2024-11-05 15:41 | PTOTSP ---
Dysphagia Evaluation
Patient presents with oral/pharyngeal dysphagia that is chronic given comorbidities (i.e., CVA w/ paraplegia, aphasia, and dysphagia s/p PEG; COPD).
Patient without consistent functional means of communication at this time despite multiple attempted modalities.
Recommend:
1. NPO - continue non-oral means via PEG
2. Meds non-oral
3. RAILROAD CAR TRUCK BUILDER to f/u and determine if/when ARHP appropriate
4. RAILROAD CAR TRUCK BUILDER to f/u and determine if/when FEES may be appropriate
5. Outpatient RAILROAD CAR TRUCK BUILDER f/u to establish communication modality
[2024-11-05 18:34] LABS: Glucose - Point of Care 134 mg/dl (70-99)
[2024-11-05 23:50] LABS: Glucose - Point of Care 157 mg/dl (70-99)
[2024-11-06] VITALS (7 sets, daily range): BP systolic 127–167; BP diastolic 57–79; BMI 28.2
--- NOTE | 2024-11-06 00:26 | PTCARENOTE ---
Pt tolerating tube feeding. Advanced rate to 55 mL/hr per MD order.
[2024-11-06] MEDS: NOVOLOG FLEXPEN-LOW RESISTANCE 1 UNITS SC ×2 (00:35→13:28)
[2024-11-06 05:43] LABS: Glucose - Point of Care 132 mg/dl (70-99)
[2024-11-06] MEDS: NOVOLOG FLEXPEN-LOW RESISTANCE SC ×2 (05:53→18:29)
[2024-11-06] MEDS: FIRVANQ 125 MG TUBE ×3 (05:53→18:33)
[2024-11-06 07:10] LABS: Hematocrit 24.5 % (39.0-52.0); Hemoglobin 7.6 g/dL (13.0-18.0); Mean Corp Hgb Conc. 31.0 g/dL (33.0-37.0); Mean Corpuscular Volume 91.4 fL (80.0-94.0); Nucleated Red Blood Cells % 0 % (-); Platelet Count 240 10^3/uL (130-400); Red Cell Dist. Width 15.0 % (11.5-14.5)
--- NOTE | 2024-11-06 07:31 | W.PN.HOSP.TC ---
Today's Communication/Plan
-
See plan
Assessment / Plan
Assessment / Plan
Physical Exam
General: No Apparent Distress
Respiratory: Clear to Auscultation
Cardiac: S1 and S2. Regular Rhythm
GI: Soft, Nontender and Nondistended. Positive bowel sounds.
Skin: Warm
Neuro: Awake and Alert
Psych: Calm
Assessment/Plan
59yo M with PMHx of ESRD on HD, Hx of c.diff, intraabdominal abscess, CVA s/p PEG and paraplegia, non-verbal, Afib on Eliquis brought from [facility] with anemia and hematemesis. S/P Kcentra in ED. FOund severe gastritis on EGD. Also Acute
urinary retention (New [place] placed) and leukocytosis, concern for C.diff related. Monitoring on oral vanco with assistance of ID, who recommended to stop IV Abx. Also POA is looking to change facility - CM discussed in details with POA - patient to
return to [facility] where CM and social service director will assist with eventual transfer to new facility.
#Acute blood loss anemia 2/2 GIB on anemia of chronic disease 2/2 ESRD
Bleeding most liekly exacerbated by ELqiuis
Two large bore IV, serial H&H, transfuse to keep Hgb >7
GI consult: s/p EGD - severe gastritis, repeat EGD in 2 months, replace PEG in 4 weeks (not done on this admission due to severe gastritis)
PPI, Carafate
s/p 2 units PRBC
#Diarrhea
Hx of recent C.diff
Addition of Fiber vs. Imodium
He is currently being treated for C. difficile for toxin negative antigen positive
stool C.diff PCR positive and toxin neg
Empiric oral Vanco 125mg QID as per ID
#Hypokalemia
-Replacement ordered
#Leukocytosis
#Bacteremia
#stage 4 sacral PI - non-infected on exam
Extended Hx of of sacral wound mgmt in [facility], no significant wound infection on pictures
FMS to avoid wound contamination
abd non-tender, not distended
CT abd/pelvis showed enterocolitis
BCx 1 set with coag ng staph - contamination as per ID
repeat Bcx
Broad spectrum Abx stopped by ID on 11/03/24
Chest XR without overt pneumonia
UA with neg Ucx
#Acute urinary retention
#Phimosis
s/p [place]
drained 2L of urine as per Urologist
Difficult [place]
Tamsulosin/Finasteride cannot be crushed for PEG -will need to be d/c on [place]
#ESRD on HD
#Mild hypokalemia
nephrology for HD
HD on 11/08/24
#Minimal alk.phos elevation
Resolved
#mild relative left-sided 'bulging' of the intestinal tract
atrophy of the rectus abdominis musculature
#Dysphagia
on PEG
start diet: Nepro 1.8 continuous. 3 packs prosource. Start rate 20ml/hr, increase 20ml q 8hrs to goal of 40ml/hr. Flush 25ml. Provides 880ml total volume, 1584 calories + 180 calories prosource = 1764 calories (98% needs), 71g protein + 45g protein
prosource = 116g protein (108% needs), 639ml free fluid + 600ml h2o flush = 1239ml.
#Hx of CVA with residual aphasia and paraplegia
#Nonverbal
COnt ELiquis on 11/03/24 as per GI
#History of Trach
-Previously removed
#Afib on eliquis
cont tele
decrease Eliquis to 2.5mg in view of ESRD
DVT ppx SCDs
Full code
#Bilateral atelectasis
2/2 bedbound status
cannot follow instruction for IS approprietly
#Asymptomatic cholelithiasis
#Hepatosplenomegaly
Outpatient follow up
#L ischium with healing suspect stage 2 vs stage 3
Wound care
Anticipated Discharge: 24 - 48 hours
Subjective/Interval History
-
Date of Service: November 06, 2024
Patient was seen and examined. No acute events overnight. He is still having liquid bowel movements. No new episodes of bloody vomit, and no blood in the stool.
Objective Data
-
Labs:
Laboratory Results
11/06/24
06:39
WBC 14.0 H
Hgb 7.6 L
Hct 24.5 L
Plt Count 240
Sodium Pending
Potassium Pending
Chloride Pending
Carbon Dioxide Pending
BUN Pending
Creatinine Pending
Glucose Pending
Calcium Pending
Total Bilirubin Pending
AST Pending
ALT Pending
Alkaline Phosphatase Pending
Vital Signs:
Vital Signs
Temp Pulse Resp BP Pulse Ox
98 F 87 16 142/77 98
11/06/24 03:03 11/06/24 03:03 11/06/24 03:03 11/06/24 03:03 11/06/24 03:03
I&O
11/05/24 11/06/24 11/07/24
06:59 06:59 06:59
Intake Total 760 / 760 0 / 0
Output Total 250 / 250 200 / 200
Balance 510 / 510 -200 / -200
[2024-11-06 07:33] LABS: ALT (SGPT) 18 U/L (0-50); AST (SGOT) 16 U/L (17-59); Albumin 2.6 g/dl (3.5-5.0); Alkaline Phosphatase 135 U/L (38-126); Blood Urea Nitrogen 29 mg/dl (9-20); Calcium 8.5 mg/dl (8.4-10.2); Carbon Dioxide 29 mmol/L (22-30); Chloride 99 mmol/L (98-107); Estimated Creatinine Clearance 32 ml/min; Glucose 155 mg/dl (70-99); Potassium 3.3 mmol/L (3.5-5.1); Sodium 133 mmol/L (135-145); Total Protein 5.9 g/dl (6.3-8.2); eGFR 28.87
[2024-11-06] MEDS: NSS (PRESERVATIVE FREE) 10 ML IV ×2 (09:39→20:36)
[2024-11-06] MEDS: ELIQUIS 2.5 MG TUBE ×2 (09:40→20:36)
[2024-11-06] MEDS: PROTONIX IV 40 MG IV ×2 (09:40→20:36)
[2024-11-06] MEDS: CARAFATE SUSPENSION 1 GM TUBE ×2 (09:41→20:36)
[2024-11-06] MEDS: DAKIN'S SOLUTION 0.125% 1/4 STRENGTH 50 ML TOPICAL (10:06)
[2024-11-06] MEDS: HYDROPHOR 1 APPLIC TOPICAL (10:07)
--- NOTE | 2024-11-06 10:15 | W.PN.URO.CBU ---
Today's Communication / Plan
-
will sign off
Assessment / Plan
-
AUR
Phimosis
difficult Griffiths --> functioning
Diagnosis
-
Date of Service: November 06, 2024
-
Patient Diagnosis:
AUR
Phimosis
difficult Griffiths
Subjective
-
non-verbal
Objective
-
Vital Signs
Temp Pulse Resp BP Pulse Ox
98.7 F 83 20 127/71 94
11/06/24 07:00 11/06/24 07:00 11/06/24 07:00 11/06/24 07:00 11/06/24 07:00
Intake and Output
11/05/24 11/06/24 11/07/24
06:59 06:59 06:59
Intake Total 760 / 760 0 / 0 910 / 910
Output Total 250 / 250 200 / 200 300 / 300
Balance 510 / 510 -200 / -200 610 / 610
Intake:
Oral fluids 0 / 0 0 / 0
Tube feeding 460 / 460 610 / 610
Feeding tube flush amount 300 / 300 300 / 300
Output:
Liquid stool amount 200 / 200
Rectum 200 / 200
Urine, Griffiths 250 / 250 200 / 200 100 / 100
Laboratory Results
11/06/24 06:39
11/06/24 06:39
Physical Exam
-
Genitalia - griffiths draining melania urine
[2024-11-06 13:00] LABS: Glucose - Point of Care 157 mg/dl (70-99)
--- NOTE | 2024-11-06 13:50 | W.PN.NEPH.PH ---
Today's Communication / Plan
-
HD Friday
Assessment/Plan
-
IMP:
Acute blood loss anemia 2/2 GIB on anemia of chronic disease 2/2 ESRD
Diarrhea
Hx of recent C.diff
Leukocytosis
ESRD on HD-MWF [facility]
left UE AVF
right chest wall catheter
Mild hypokalemia
Dysphagia on PEG
Hx of CVA with residual aphasia and paraplegia
Urine retention
NIDDM
Plan:
A/w GIB, anemia s/p PRBC
s/p EGD on PPI, carafate
monitor h/h
ongoing diarrhea , repalce k
high k bath on HD on friday
griffiths per
-
-
Date of Service: November 06, 2024
CC / HPI / ROS
-
Chief Complaint:
ESRD
History of Present Illness:
ESRD MWF
hemodynamically stable
Anemia worsening hb 7.6
Review of Systems:
no fever
Griffiths with only 300 cc of urine
non verbal baseline
diarrhea ini rectal bag
Labs
-
Labs:
WBC 14.0 10^3/uL (4.8-10.8) H 11/06/24 06:39
RBC 2.68 10^6/uL (4.70-6.10) L 11/06/24 06:39
Hgb 7.6 g/dL (13.0-18.0) L 11/06/24 06:39
Hct 24.5 % (39.0-52.0) L 11/06/24 06:39
Plt Count 240 10^3/uL (130-400) 11/06/24 06:39
Sodium 133 mmol/L (135-145) L 11/06/24 06:39
Potassium 3.3 mmol/L (3.5-5.1) L 11/06/24 06:39
Chloride 99 mmol/L (98-107) 11/06/24 06:39
Carbon Dioxide 29 mmol/L (22-30) 11/06/24 06:39
BUN 29 mg/dl (9-20) H 11/06/24 06:39
Creatinine 2.5 mg/dL (0.7-1.3) H 11/06/24 06:39
eGFR 28.87 11/06/24 06:39
Glucose 155 mg/dl (70-99) H 11/06/24 06:39
Calcium 8.5 mg/dl (8.4-10.2) 11/06/24 06:39
Albumin 2.6 g/dl (3.5-5.0) L 11/06/24 06:39
Physical Exam
-
Vital Signs:
Vital Signs
Temp Pulse Resp BP Pulse Ox
99.2 F 90 18 148/66 98
11/06/24 11:00 11/06/24 11:00 11/06/24 11:00 11/06/24 11:00 11/06/24 11:00
Cardiovascular:: Regular rate and rhythm
Respiratory:: Bilateral: CTA
Lung Excursion:: Normal
Abdomen:: Nontender
Bowel Sounds:: Decreased
Extremity Edema:: None: Bilateral:
Griffiths Catheter: Yes
[2024-11-06] MEDS: KCL ELIXIR 40 MEQ TUBE (14:23)
--- NOTE | 2024-11-06 14:27 | W.PN.GI.CBS2 ---
Addendum entered and electronically signed by Tammy Slade DO 11/06/24 16:28:
Patient seen and examined with the resident. Discussed his history physical, assessment and plan
I agree with his note with my additions below
Patient denies any abdominal pain
According to his fecal management system he has not had any significant stool today but it is liquid
Consider changing or adding fiber to his tube feeds versus adding a small amount of Imodium
He is currently being treated for C. difficile for toxin negative antigen positive
Hemoglobin is roughly stable with no overt bleeding. Liquid stools brown on Eliquis
Original Note:
Today's Communication / Plan
-
c/w PPI and Carafate BID
c/w tube feeds
Assessment / Plan
-
Jordon is a 59 year old man with a past medical history significant for CVA with residual paraplegia/aphasia, s/p trach (now removed), PEG tube placed in Mar 2023 (last changed January 2024), w/ h/o intraabdominal abscess with necrotizing infection
requiring multiple surgeries and removal of PEG placement (May 2023), afib (on Eliquis), NIDDM, CHF (unsure of last echo), ESRD on Dialysis MWFr (R IJ Permacath), hypertension who presented from [place] with complaints of 2 episodes of blood
emesis and brown liquid stool in ED.
11/03/[address] Silvestre
- Normal esophagus.
- Erythematous mucosa in the gastric body, fundus, and antrum. Biopsied. Suspect this was the cause of the hematemesis and anemia.
- Normal examined duodenum.
#EGD with marked erythematous mucosa with contact bleeding
#Limited Ct with possible enteritis/colitis
#Bloody Emesis
#Anemia, multifactorial (Acute Blood Loss, CKD, probable AMBER)
Acute blood loss anemia presumed secondary to upper GI bleed, requiring 2 units PRBC transfusion
s/p EGD 11/03 with significant gastritis of unclear etiology, biopsies showing erosive gastritis, negative for H. pylori. PEG not changed at that time due to significant gastritis.
Pt is on chronic Sevelamer which can cause crystal deposition in the gastric mucosa leading to ulceration, inflammation, bleeding, etc.
C/w PPI BID, and Carafate BID
Hemoglobin remained stable after restarting Eliquis. transfuse to keep hgb >7
GI to arrange 3-4 week follow up. Will do EGD with peg change in 8 weeks
#Diarrhea with bleeding
#C-diff + tox neg
ID following -- cont Vanco for 10d course with C-diff + tox neg, stool WBC neg on admission.
Other stool cultures negative
If anemia or diarrhea continues, would need to consider colonoscopy to rule out mass vs. bx for microscopic colitis as possible cause of continuing watery diarrhea despite abx for C. diff.
Would try to improve upper GI irritation prior to colo prep if able
#PEG tube/chronic dysphagia
C/w slow tube feed advancement
Clean tube as needed with brush if becomes clogged
Subjective
Subjective
Date of Service: November 06, 2024
No acute events overnight. No concerns per nursing. Still having liquid bowel movements. No new episodes of bloody vomit. No blood in the stool.
Objective
Data Reviewed
Laboratory Data:
Laboratory Results
11/06/24 06:39
11/06/24 06:39
Laboratory Results
PT 16.5 Sec (11.4-14.6) H 11/02/24 05:44
INR 1.30 11/02/24 05:44
APTT 36.7 Sec (23.4-35.0) H 11/02/24 05:44
Magnesium 2.3 mg/dl (1.6-2.3) 11/03/24 04:20
Total Bilirubin 0.4 mg/dl (0.2-1.3) 11/06/24 06:39
AST 16 U/L (17-59) L 11/06/24 06:39
ALT 18 U/L (0-50) 11/06/24 06:39
Alkaline Phosphatase 135 U/L (38-126) H 11/06/24 06:39
Lipase 262 U/L (23-300) 11/01/24 23:13
Vital Signs and I&O:
Vital Signs
Temp Pulse Resp BP Pulse Ox
99.2 F 90 18 148/66 98
11/06/24 11:00 11/06/24 11:00 11/06/24 11:00 11/06/24 11:00 11/06/24 11:00
I&O
11/05/24 11/06/24 11/07/24
06:59 06:59 06:59
Intake Total 760 / 760 0 / 0 910 / 910
Output Total 250 / 250 200 / 200 300 / 300
Balance 510 / 510 -200 / -200 610 / 610
Physical Exam
Physical Exam
HEENT: Anicteric and Moist mucous membranes
Cardiology: Normal Sinus Rhythm, S1, S2 and Murmur
Pulmonary: Clear
GI: Soft, Non Distended, Non Tender and Other (PEG tube)
Extremities: No Edema and Warm
[2024-11-06 18:30] LABS: Glucose - Point of Care 142 mg/dl (70-99)
[2024-11-07] MEDS: FIRVANQ 125 MG TUBE ×4 (00:36→17:22)
[2024-11-07] MEDS: NOVOLOG FLEXPEN-LOW RESISTANCE SC ×3 (00:45→13:01)
--- NOTE | 2024-11-07 00:48 | PTCARENOTE ---
11/07 @ 0045 Accucheck 103
[2024-11-07 00:53] LABS: Glucose - Point of Care 103 mg/dl (70-99)
[2024-11-07 03:00] VITALS: BP 162/86
[2024-11-07 06:00] VITALS: BMI 28.5
[2024-11-07 06:22] LABS: Glucose - Point of Care 138 mg/dl (70-99)
[2024-11-07 06:24] VITALS: BP 159/74
[2024-11-07 07:00] VITALS: BP 160/82
[2024-11-07 07:36] LABS: Hematocrit 25.6 % (39.0-52.0); Hemoglobin 8.2 g/dL (13.0-18.0); Mean Corp Hgb Conc. 32.0 g/dL (33.0-37.0); Mean Corpuscular Volume 92.8 fL (80.0-94.0); Nucleated Red Blood Cells % 0 % (-); Platelet Count 265 10^3/uL (130-400); Red Cell Dist. Width 14.9 % (11.5-14.5)
[2024-11-07] MEDS: NSS (PRESERVATIVE FREE) 10 ML IV ×2 (07:40→20:59)
[2024-11-07] MEDS: ELIQUIS 2.5 MG TUBE ×2 (07:40→20:59)
[2024-11-07] MEDS: PROTONIX IV 40 MG IV ×2 (07:41→20:59)
[2024-11-07] MEDS: CARAFATE SUSPENSION 1 GM TUBE ×2 (07:41→20:58)
[2024-11-07] MEDS: DAKIN'S SOLUTION 0.125% 1/4 STRENGTH 473 ML TOPICAL (07:43)
[2024-11-07] MEDS: HYDROPHOR 1 APPLIC TOPICAL (07:44)
[2024-11-07 08:13] LABS: Blood Urea Nitrogen 37 mg/dl (9-20); Calcium 8.3 mg/dl (8.4-10.2); Carbon Dioxide 28 mmol/L (22-30); Chloride 99 mmol/L (98-107); Estimated Creatinine Clearance 25 ml/min; Glucose 142 mg/dl (70-99); Potassium 3.9 mmol/L (3.5-5.1); Sodium 132 mmol/L (135-145); eGFR 21.47
[2024-11-07 11:00] VITALS: BP 168/90
[2024-11-07 12:44] LABS: Glucose - Point of Care 145 mg/dl (70-99)
--- NOTE | 2024-11-07 14:19 | W.PN.HOSP.TC ---
Today's Communication/Plan
-
Fiber and prn Imodium added
Placement pending
Assessment / Plan
Assessment / Plan
Physical Exam
General: No Apparent Distress
Respiratory: Clear to Auscultation
Cardiac: S1 and S2. Regular Rhythm
GI: Soft, Nontender and Nondistended. Positive bowel sounds.
Skin: Warm
Neuro: Awake and Alert
Psych: Calm
Assessment/Plan
59yo M with PMHx of ESRD on HD, Hx of c.diff, intraabdominal abscess, CVA s/p PEG and paraplegia, non-verbal, Afib on Eliquis brought from [facility] SNF with anemia and hematemesis. S/P Kcentra in ED. FOund severe gastritis on EGD. Also Acute
urinary retention (New [place] placed) and leukocytosis, concern for C.diff related. Monitoring on oral vanco with assistance of ID, who recommended to stop IV Abx. Also POA is looking to change facility - CM discussed in details with POA - patient to
return to [facility] where CM and psych social worker will assist with eventual transfer to new facility.
#Acute blood loss anemia 2/2 GIB on anemia of chronic disease 2/2 ESRD
Bleeding most liekly exacerbated by ELqiuis
Two large bore IV, serial H&H, transfuse to keep Hgb >7
GI consult: s/p EGD - severe gastritis, repeat EGD in 2 months, replace PEG in 4 weeks (not done on this admission due to severe gastritis)
PPI, Carafate
s/p 2 units PRBC
#Diarrhea
Hx of recent C.diff
Added daily scheduled Fiber and prn Imodium for diarrhea
He is currently being treated for C. difficile for toxin negative antigen positive
stool C.diff PCR positive and toxin neg
Empiric oral Vanco 125mg QID as per ID
#Hypokalemia
-Replacement ordered
#Leukocytosis
#Bacteremia
#stage 4 sacral PI - non-infected on exam
Extended Hx of of sacral wound mgmt in [facility], no significant wound infection on pictures
FMS to avoid wound contamination
abd non-tender, not distended
CT abd/pelvis showed enterocolitis
BCx 1 set with coag ng staph - contamination as per ID
repeat Bcx
Broad spectrum Abx stopped by ID on 11/03/24
Chest XR without overt pneumonia
UA with neg Ucx
#Acute urinary retention
#Phimosis
s/p [place]
drained 2L of urine as per Urologist
Difficult [place]
Tamsulosin/Finasteride cannot be crushed for PEG -will need to be d/c on [place]
#ESRD on HD
#Mild hypokalemia
nephrology for HD
HD on 11/08/24
#Minimal alk.phos elevation
Resolved
#mild relative left-sided 'bulging' of the intestinal tract
atrophy of the rectus abdominis musculature
#Dysphagia
on PEG
Continue tube feeding diet
#Hx of CVA with residual aphasia and paraplegia
#Nonverbal
COnt ELiquis on 11/03/24 as per GI
#History of Trach
-Previously removed
#Afib on eliquis
cont tele
decrease Eliquis to 2.5mg in view of ESRD
DVT ppx SCDs. Eliquis.
Full code
#Bilateral atelectasis
2/2 bedbound status
cannot follow instruction for IS approprietly
#Asymptomatic cholelithiasis
#Hepatosplenomegaly
Outpatient follow up
#L ischium with healing suspect stage 2 vs stage 3
Wound care
Anticipated Discharge: 24 - 48 hours
Subjective/Interval History
-
Date of Service: November 07, 2024
Patient was seen and examined. No new events or complaints.
Objective Data
-
Labs:
Laboratory Results
11/07/24
06:54
WBC 13.6 H
Hgb 8.2 L
Hct 25.6 L
Plt Count 265
Sodium 132 L
Potassium 3.9
Chloride 99
Carbon Dioxide 28
BUN 37 H
Creatinine 3.2 H
Glucose 142 H
Calcium 8.3 L
Vital Signs:
Vital Signs
Temp Pulse Resp BP Pulse Ox
97.8 F 82 18 168/90 100
11/07/24 11:00 11/07/24 11:00 11/07/24 11:00 11/07/24 11:00 11/07/24 11:00
I&O
11/06/24 11/07/24 11/08/24
06:59 06:59 06:59
Intake Total 0 / 0 2970 / 2970
Output Total 200 / 200 480 / 480
Balance -200 / -200 2490 / 2490
[2024-11-07 15:00] VITALS: BP 174/95
--- NOTE | 2024-11-07 15:08 | W.PN.NEPH.PH ---
Today's Communication / Plan
-
HD tomorrow
Assessment/Plan
-
IMP:
Acute blood loss anemia 2/2 GIB on anemia of chronic disease 2/2 ESRD
Diarrhea
Hx of recent C.diff
Leukocytosis
ESRD on HD-MWF [facility]
left UE AVF
right chest wall catheter
Mild hypokalemia
Dysphagia on PEG
Hx of CVA with residual aphasia and paraplegia
Urine retention
NIDDM
Plan:
A/w GIB, anemia s/p PRBC
s/p EGD-erythema on PPI, carafate
monitor h/h
ongoing diarrhea , repalce k prn
high k bath on HD on friday
griffiths per
-
-
Date of Service: November 07, 2024
CC / HPI / ROS
-
Chief Complaint:
ESRD
History of Present Illness:
ESRD MWF
hemodynamically stable
Anemia stable 8.2, WBC high 13.6
Review of Systems:
no fever
Griffiths with only 80 cc of urine
non verbal baseline
diarrhea ini rectal bag
Labs
-
Labs:
WBC 13.6 10^3/uL (4.8-10.8) H 11/07/24 06:54
RBC 2.76 10^6/uL (4.70-6.10) L 11/07/24 06:54
Hgb 8.2 g/dL (13.0-18.0) L 11/07/24 06:54
Hct 25.6 % (39.0-52.0) L 11/07/24 06:54
Plt Count 265 10^3/uL (130-400) 11/07/24 06:54
Sodium 132 mmol/L (135-145) L 11/07/24 06:54
Potassium 3.9 mmol/L (3.5-5.1) 11/07/24 06:54
Chloride 99 mmol/L (98-107) 11/07/24 06:54
Carbon Dioxide 28 mmol/L (22-30) 11/07/24 06:54
BUN 37 mg/dl (9-20) H 11/07/24 06:54
Creatinine 3.2 mg/dL (0.7-1.3) H 11/07/24 06:54
eGFR 21.47 11/07/24 06:54
Glucose 142 mg/dl (70-99) H 11/07/24 06:54
Calcium 8.3 mg/dl (8.4-10.2) L 11/07/24 06:54
Albumin 2.6 g/dl (3.5-5.0) L 11/06/24 06:39
Physical Exam
-
Vital Signs:
Vital Signs
Temp Pulse Resp BP Pulse Ox
97.8 F 82 18 168/90 100
11/07/24 11:00 11/07/24 11:00 11/07/24 11:00 11/07/24 11:00 11/07/24 11:00
Cardiovascular:: Regular rate and rhythm
Respiratory:: Bilateral: CTA
Lung Excursion:: Normal
Abdomen:: Nontender and Soft
Bowel Sounds:: Decreased
Extremity Edema:: None: Bilateral:
Griffiths Catheter: Yes
[2024-11-07] MEDS: IMODIUM 2 MG TUBE (15:12)
[2024-11-07] MEDS: METAMUCIL, KONSYL 1 PACKET TUBE (15:12)
[2024-11-07 18:09] LABS: Glucose - Point of Care 178 mg/dl (70-99)
[2024-11-07] MEDS: NOVOLOG FLEXPEN-LOW RESISTANCE 1 UNITS SC (18:10)
[2024-11-07 23:10] VITALS: BP 142/74
[2024-11-08 00:44] LABS: Glucose - Point of Care 145 mg/dl (70-99)
[2024-11-08] MEDS: NOVOLOG FLEXPEN-LOW RESISTANCE SC ×2 (01:19→18:31)
[2024-11-08] MEDS: FIRVANQ 125 MG TUBE ×4 (01:48→17:47)
[2024-11-08 04:39] VITALS: BMI 29.7
[2024-11-08 06:09] LABS: Glucose - Point of Care 154 mg/dl (70-99)
[2024-11-08] MEDS: NOVOLOG FLEXPEN-LOW RESISTANCE 1 UNITS SC ×2 (06:10→13:38)
[2024-11-08 07:00] VITALS: BP 176/92
[2024-11-08 07:02] LABS: Hematocrit 27.5 % (39.0-52.0); Hemoglobin 8.5 g/dL (13.0-18.0); Mean Corp Hgb Conc. 30.9 g/dL (33.0-37.0); Mean Corpuscular Volume 91.4 fL (80.0-94.0); Nucleated Red Blood Cells % 0 % (-); Platelet Count 280 10^3/uL (130-400); Red Cell Dist. Width 14.8 % (11.5-14.5)
[2024-11-08 07:24] LABS: Blood Urea Nitrogen 50 mg/dl (9-20); Calcium 8.7 mg/dl (8.4-10.2); Carbon Dioxide 27 mmol/L (22-30); Chloride 99 mmol/L (98-107); Estimated Creatinine Clearance 23 ml/min; Glucose 156 mg/dl (70-99); Potassium 3.9 mmol/L (3.5-5.1); Sodium 132 mmol/L (135-145); eGFR 19.28
--- NOTE | 2024-11-08 08:37 | W.PN.ID1 ---
Addendum entered and electronically signed by Chela Montague MD 11/08/24 13:46:
I saw and evaluated the patient. I reviewed the resident�s note and agree with findings and plan as documented in the resident�s note.
Leukocytosis minimal increase today.
No abd pain.
From ID standpoint, can dc to complete empiric enteric Vancomycin x 10 days till 11/12.
Discussed with Dr. Colon.
Original Note:
Date of Service
Date of Service: November 08, 2024
Offers no new complaints
Today's Communication
Continue oral vancomycin 125 mg through 11/12/2024
Check CBC in the a.m.
Assessment / Plan
# Leukocytosis; now trending down; probably was reactive to GI bleed
# Bacteremia with Staphylococcus species ( form 11/02/2403/04); likely contamination
# Upper GI bleed
# Diarrhea; recent history of C. difficile in August 2024
# ESRD on HD
- Patient remained afebrile
- Repeat blood culture pending; negative to date
- Urine culture negative
- MRSA negative
- Review of wound photos: sacral decubiti do not look infected
- C. difficile antigen positive, toxin negative; history of positive C. difficile in August 2024
- Stool studies negative
- s/p 1 dose fo cftx on 11/02/24 ; Currently on oral vanco to 125mg q6; due to high risk of recurrence and current diarrhea can continue it for total of 10 days through 11/12/2024
- repeat cbc in the am
- If leukocytosis trending up again will need repeat CT A/P with IV and oral contrast
Chief Complaint
-: Leukocytosis, C-diff and Bacteremia
Subjective / Review of Systems
Review of Systems: No Fever, No Chills, No Headache, No Cough, No Sputum Production, No Chest Pain and No Vomiting
Vital Signs / Physical Exam
Vital Signs
Vital Signs
Temp Pulse Resp BP Pulse Ox
98.8 F 110 18 176/92 96
11/08/24 07:00 11/08/24 07:00 11/08/24 07:00 11/08/24 07:00 11/08/24 07:00
Physical Exam
Constitutional: Comfortable
Cardiovascular: Regular Rate
Gastrointestinal: Soft and Non Distended
Genito-Urinary: [place]
Neurological: Awake
Psychological: Calm
Objective Data
Lab Data
Lab Results
11/08/24 06:19
11/08/24 06:19
PT 16.5 Sec (11.4-14.6) H 11/02/24 05:44
INR 1.30 11/02/24 05:44
APTT 36.7 Sec (23.4-35.0) H 11/02/24 05:44
Estimated Creat Clear 23 ml/min 11/08/24 06:19
Total Bilirubin 0.4 mg/dl (0.2-1.3) 11/06/24 06:39
AST 16 U/L (17-59) L 11/06/24 06:39
ALT 18 U/L (0-50) 11/06/24 06:39
Alkaline Phosphatase 135 U/L (38-126) H 11/06/24 06:39
Most recent labs reviewed.
Micro Results:
11/02/24 11:31 Blood Culture - Final
Blood/Venous No Growth - Final Report
11/03/24 11:21 Blood Culture - Preliminary
Blood/Venous No Growth in 4 days- Final report to follow
11/03/24 11:00 Blood Culture - Preliminary
Blood/Venous No Growth in 4 days- Final report to follow
11/01/24 23:13 Salmonella/Shigella Culture - Final
Feces/Stool No Salmonella, Shigella, Aeromonas or Plesiomonas species
isolated.
Campylobacter Culture - Final
No Campylobacter species isolated.
Shiga Toxin Test - Final
No E. coli Shiga Toxin 1 or 2 detected.
Stool Leukocytes - Final
11/02/24 10:13 Blood Culture - Preliminary
Blood/Venous Coagulase neg. staphylococcus
Additional testing on request
Gram Stain - Preliminary
11/02/24 12:37 Urine Culture - Final
Urine NO GROWTH
11/02/24 07:41 MRSA Screen - Final
Nose No Methicillin Resistant Staphylococcus aureus isolated.
11/01/24 23:13 C. difficile GDH Antigen & Toxins - Final
Feces/Stool C. difficile antigen positive, toxin negative.
Clostridium difficile present, but toxin not detected.
Patient may be a carrier, colonized with nontoxinogenic
strain or the level of toxin in sample is below detection
limits. This information should be used in conjunction with
the patient's clinical history.
XR Abdomen 11/02/24: Grossly nonobstructive bowel gas pattern.
CXR 11/02/2024: Low lung volumes.
Left mid to lower lung thickened linear opacity most likely representing subsegmental atelectasis.
Abdomen/pelvis CT 11/02/2024: Limited evaluation of intestinal tract as a result of several factors including marked beam hardening artifact from the patient's bilateral upper extremities, motion artifact and lack of oral contrast opacification of
majority of large bowel. No intestinal obstruction or free air.
Some suspected mild thickening of nondilated loops of proximal to mid small bowel, nonspecific, could represent enteritis.
Markedly limited evaluation of the descending colon, sigmoid and rectum without oral contrast opacification and with some beam hardening artifact, some at least SUSPECTED WALL THICKENING SUCH COLITIS.
Lack of demonstrable renal excretion bilaterally compatible with ESRD and hemodialysis. Small bilateral low-attenuation renal lesions too small to characterize.
Hepatosplenomegaly.
Bilateral lower lobe subsegmental atelectasis, left greater than right, cannot exclude left lower lobe pneumonia, evaluation overall limited as a result of marked beam hardening artifact.
Cholelithiasis.
Cannot exclude small pericardial effusion, limited by beam hardening artifact.
Marked edematous changes widespread throughout the abdominal and pelvic wall.
Marked atrophy of the rectus abdominis musculature with mild relative left-sided 'bulging' of the intestinal tract.
[2024-11-08] MEDS: NSS (PRESERVATIVE FREE) 10 ML IV ×2 (09:07→21:06)
[2024-11-08] MEDS: METAMUCIL, KONSYL 1 PACKET TUBE (09:07)
[2024-11-08] MEDS: PROTONIX IV 40 MG IV ×2 (09:07→21:06)
[2024-11-08] MEDS: CARAFATE SUSPENSION 1 GM TUBE ×2 (09:07→21:03)
[2024-11-08] MEDS: ELIQUIS 2.5 MG TUBE ×2 (09:07→21:06)
[2024-11-08 12:21] LABS: Glucose - Point of Care 156 mg/dl (70-99)
--- NOTE | 2024-11-08 13:31 | W.PN.HOSP.TC ---
Today's Communication/Plan
-
Rectal trumpet taken out today
PRN Imodium for diarrhea, can add more Imodium but do not exceed the usual recommended frequency and maximum dose of Imodium
If patient does okay going into tomorrow, then plan for discharge. Recommendation from GI to watch overnight.
Assessment / Plan
Assessment / Plan
Physical Exam
General: No Apparent Distress
Respiratory: Clear to Auscultation
Cardiac: S1 and S2. Regular Rhythm
GI: Soft, Nontender and Nondistended. Positive bowel sounds.
Skin: Warm
Neuro: Awake and Alert
Psych: Calm
Assessment/Plan
59yo M with PMHx of ESRD on HD, Hx of c.diff, intraabdominal abscess, CVA s/p PEG and paraplegia, non-verbal, Afib on Eliquis brought from [facility] with anemia and hematemesis. S/P Kcentra in ED. FOund severe gastritis on EGD. Also Acute
urinary retention (New [place] placed) and leukocytosis, concern for C.diff related. Monitoring on oral vanco with assistance of ID, who recommended to stop IV Abx. Also POA is looking to change facility - CM discussed in details with POA - patient to
return to [facility] where CM and group social worker will assist with eventual transfer to new facility.
#Acute blood loss anemia 2/2 GIB on anemia of chronic disease 2/2 ESRD
#Erosive gastritis (no H. pylori on path)
Bleeding most liekly exacerbated by ELqiuis
Two large bore IV, serial H&H, transfuse to keep Hgb >7
GI consult: s/p EGD - severe gastritis, repeat EGD in 2 months, replace PEG in 4 weeks (not done on this admission due to severe gastritis)
PPI, Carafate
s/p 2 units PRBC
#Diarrhea
Hx of recent C.diff
Added daily scheduled Fiber and prn Imodium for diarrhea
He is currently being treated for C. difficile for toxin negative antigen positive
stool C.diff PCR positive and toxin neg
Empiric oral Vanco 125mg QID as per ID -- can complete empiric enteric Vancomycin x 10 days till 11/12/24
Rectal trumpet cannot be managed at [facility] facility -- therefore, Imodium and take out rectal trumpet as of 11/08/24
#Hypokalemia
-Replacement ordered
#Leukocytosis
#Bacteremia
#stage 4 sacral PI - non-infected on exam
Extended Hx of of sacral wound mgmt in [facility], no significant wound infection on pictures
FMS to avoid wound contamination
abd non-tender, not distended
CT abd/pelvis showed enterocolitis
BCx 1 set with coag ng staph - contamination as per ID
repeat Bcx
Broad spectrum Abx stopped by ID on 11/03/24
Chest XR without overt pneumonia
UA with neg Ucx
#Acute urinary retention
#Phimosis
s/p [place]
drained 2L of urine as per Urologist
Difficult Wellington
Tamsulosin/Finasteride cannot be crushed for PEG -will need to be d/c on Wellington
#ESRD on HD
#Mild hypokalemia
nephrology for HD
HD on 11/08/24
#Minimal alk.phos elevation
Resolved
#mild relative left-sided 'bulging' of the intestinal tract
atrophy of the rectus abdominis musculature
#Dysphagia
on PEG
Continue tube feeding diet
#Hx of CVA with residual aphasia and paraplegia
#Nonverbal
COnt ELiquis on 11/03/24 as per GI
#History of Trach
-Previously removed
#Afib on eliquis
cont tele
decrease Eliquis to 2.5mg in view of ESRD
DVT ppx SCDs. Eliquis.
Full code
#Bilateral atelectasis
2/2 bedbound status
cannot follow instruction for IS approprietly
#Asymptomatic cholelithiasis
#Hepatosplenomegaly
Outpatient follow up
#L ischium with healing suspect stage 2 vs stage 3
Wound care
Anticipated Discharge: Within 24 hours
Subjective/Interval History
-
Date of Service: November 08, 2024
Patient was seen and examined. He is still having liquid stools.
Objective Data
-
Labs:
Laboratory Results
11/08/24
06:19
WBC 14.0 H
Hgb 8.5 L
Hct 27.5 L
Plt Count 280
Sodium 132 L
Potassium 3.9
Chloride 99
Carbon Dioxide 27
BUN 50 H
Creatinine 3.5 H
Glucose 156 H
Calcium 8.7
Vital Signs:
Vital Signs
Temp Pulse Resp BP Pulse Ox
98.8 F 110 18 176/92 96
11/08/24 07:00 11/08/24 07:00 11/08/24 07:00 11/08/24 07:00 11/08/24 07:00
I&O
11/07/24 11/08/24 11/09/24
06:59 06:59 06:59
Intake Total 2970 / 2970 1100 / 1100
Output Total 480 / 480 250 / 250
Balance 2490 / 2490 850 / 850
[2024-11-08] MEDS: RETACRIT 10000 UNITS IV (13:50)
[2024-11-08] MEDS: MANNITOL 25% 12.5 GRAMS IV (14:03)
[2024-11-08] MEDS: FLEXBUMIN 25% FOR HEMODIALYSIS 12.5 GRAMS IV (14:04)
[2024-11-08 15:00] VITALS: BP 111/59
--- NOTE | 2024-11-08 15:05 | CM ---
patient chart reviewed
HD today
referral in [facility] updated for [facility]
updated [facility] admissions
[facility] & SW will assist with transition to another facility
PLAN: [facility]
--- NOTE | 2024-11-08 15:07 | W.PN.NEPH.HD ---
Assessment
-
Seen on HD. noncommunicative. VSS, access
diarrhea, rectal bag
Progress Note - Hemodialysis
-
Date of Service: November 08, 2024
Duration: 30 minutes and 3 hours
Potassium Bath: 4
Calcium Bath: 2.5
Opti-Dialyzer: 160
Ultrafiltration: Other
Blood Flow: 400
Dialysate Flow: 600
Heparin: 0
EPO: 80799 units
--- NOTE | 2024-11-08 15:31 | W.PN.GI.CBS2 ---
Addendum entered and electronically signed by Tammy Slade DO 11/08/24 17:06:
Patient seen and examined independently of the PAIL TESTER. I agree with her note with my additions below
Patient still has a rectal trumpet in and when measuring the liquid stool there is not that much.
Agree with removing and monitoring rectal output
ID is finishing the course of oral vancomycin
prn imodium
outpatient follow up then EGD and peg change in 8wks
PPI and sucralfate due to the gastritis that potentially is caused by some of his medications
path on EGD shows erosive gastritis. Negative for H. pylori
Original Note:
Today's Communication / Plan
-
hospitalist reviewing for possible discharge but still with some loose stools
trial of rectal tube out and monitor stools
cont PPI and carafate
cont vanco
Imodium PRN
cont tube feeds
if cont diarrhea consider flex/colon to eval for other etiology
OP follow up 4 weeks then EGD and peg change 8 weeks
message sent to GI office to arrange
i
Assessment / Plan
-
Jordon is a 59 year old man with a past medical history significant for CVA with residual paraplegia/aphasia, s/p trach (now removed), PEG tube placed in Mar 2023 (last changed January 2024), w/ h/o intraabdominal abscess with necrotizing infection
requiring multiple surgeries and removal of PEG placement (May 2023), afib (on Eliquis), NIDDM, CHF (unsure of last echo), ESRD on Dialysis MWFr (R IJ Permacath), hypertension who presented from [facility] with complaints of 2 episodes of blood
emesis and brown liquid stool in ED.
11/03/[address] Silvestre
- Normal esophagus.
- Erythematous mucosa in the gastric body, fundus, and antrum. Biopsied. Suspect this was the cause of the hematemesis and anemia.
- Normal examined duodenum.
#EGD with marked erythematous mucosa with contact bleeding
#Limited Ct with possible enteritis/colitis
#Bloody Emesis
#Anemia, multifactorial (Acute Blood Loss, CKD, probable AMBER)
Acute blood loss anemia presumed secondary to upper GI bleed, requiring 2 units PRBC transfusion
s/p EGD 11/03 with significant gastritis of unclear etiology, biopsies showing erosive gastritis, negative for H. pylori. PEG not changed at that time due to significant gastritis.
Pt is on chronic Sevelamer which can cause crystal deposition in the gastric mucosa leading to ulceration, inflammation, bleeding, etc.
C/w PPI BID, and Carafate BID
Hemoglobin remained stable after restarting Eliquis. transfuse to keep hgb >7
GI to arrange 3-4 week follow up. Will do EGD with peg change in 8 weeks-- I sent message to GI office to arrange
#Diarrhea with bleeding
Bleeding now resolved
I review with nursing with rectal device has been flushing would given trial of device out to see if change in stools
#C-diff + tox neg
ID following -- cont Vanco for 10d course with C-diff + tox neg, stool WBC neg on admission.
Other stool cultures negative
If anemia or diarrhea continues, would need to consider colonoscopy to rule out mass vs. bx for microscopic colitis as possible cause of continuing watery diarrhea despite abx for C. diff.
Would try to improve upper GI irritation prior to colo prep if able
#PEG tube/chronic dysphagia
C/w slow tube feed advancement
Clean tube as needed with brush if becomes clogged
need replacement with repeat EGD
Subjective
Subjective
Date of Service: November 08, 2024
still with liquid stool in rectal bag, no tube feeds
Objective
Data Reviewed
Laboratory Data:
Laboratory Results
11/08/24 06:19
11/08/24 06:19
Laboratory Results
PT 16.5 Sec (11.4-14.6) H 11/02/24 05:44
INR 1.30 11/02/24 05:44
APTT 36.7 Sec (23.4-35.0) H 11/02/24 05:44
Magnesium 2.3 mg/dl (1.6-2.3) 11/03/24 04:20
Total Bilirubin 0.4 mg/dl (0.2-1.3) 11/06/24 06:39
AST 16 U/L (17-59) L 11/06/24 06:39
ALT 18 U/L (0-50) 11/06/24 06:39
Alkaline Phosphatase 135 U/L (38-126) H 11/06/24 06:39
Lipase 262 U/L (23-300) 11/01/24 23:13
Vital Signs and I&O:
Vital Signs
Temp Pulse Resp BP Pulse Ox
98.6 F 79 18 111/59 100
11/08/24 15:00 11/08/24 15:00 11/08/24 15:00 11/08/24 15:00 11/08/24 15:00
I&O
11/07/24 11/08/24 11/09/24
06:59 06:59 06:59
Intake Total 2970 / 2970 1100 / 1100
Output Total 480 / 480 250 / 250
Balance 2490 / 2490 850 / 850
Physical Exam
Physical Exam
HEENT: Anicteric and Other (dry mouth )
Cardiology: Normal Sinus Rhythm
Pulmonary: Clear
GI: Soft, Non Distended and Non Tender
Extremities: No Edema
Neuro: Other (eye open but no attempt at verbal communication)
[2024-11-08] MEDS: IMODIUM 2 MG TUBE (17:47)
[2024-11-08] MEDS: DAKIN'S SOLUTION 0.125% 1/4 STRENGTH 20 ML TOPICAL (17:48)
[2024-11-08] MEDS: HYDROPHOR 1 APPLIC TOPICAL (17:48)
[2024-11-08 18:56] LABS: Glucose - Point of Care 142 mg/dl (70-99)
[2024-11-08 23:56] VITALS: BP 172/98
[2024-11-09 00:07] LABS: Glucose - Point of Care 146 mg/dl (70-99)
[2024-11-09] MEDS: NOVOLOG FLEXPEN-LOW RESISTANCE SC ×3 (00:08→23:57)
[2024-11-09] MEDS: FIRVANQ 125 MG TUBE ×3 (00:09→11:46)
[2024-11-09 05:56] LABS: Glucose - Point of Care 160 mg/dl (70-99)
[2024-11-09] MEDS: NOVOLOG FLEXPEN-LOW RESISTANCE 1 UNITS SC ×2 (05:58→11:46)
[2024-11-09 06:11] VITALS: BMI 29.6
[2024-11-09 06:58] LABS: Hematocrit 26.7 % (39.0-52.0); Hemoglobin 8.2 g/dL (13.0-18.0); Mean Corp Hgb Conc. 30.7 g/dL (33.0-37.0); Mean Corpuscular Volume 90.8 fL (80.0-94.0); Nucleated Red Blood Cells % 0 % (-); Platelet Count 248 10^3/uL (130-400); Red Cell Dist. Width 14.7 % (11.5-14.5)
[2024-11-09 07:31] LABS: Blood Urea Nitrogen 30 mg/dl (9-20); Calcium 8.2 mg/dl (8.4-10.2); Carbon Dioxide 29 mmol/L (22-30); Chloride 98 mmol/L (98-107); Estimated Creatinine Clearance 35 ml/min; Glucose 144 mg/dl (70-99); Magnesium 2.2 mg/dl (1.6-2.3); Potassium 4.1 mmol/L (3.5-5.1); Sodium 132 mmol/L (135-145); eGFR 31.91
[2024-11-09 08:00] VITALS: BP 113/56
[2024-11-09] MEDS: CARAFATE SUSPENSION 1 GM TUBE ×2 (08:43→21:55)
[2024-11-09] MEDS: ELIQUIS 2.5 MG TUBE (08:43)
[2024-11-09] MEDS: METAMUCIL, KONSYL 1 PACKET TUBE (08:43)
[2024-11-09] MEDS: DAKIN'S SOLUTION 0.125% 1/4 STRENGTH 473 ML TOPICAL (08:43)
[2024-11-09] MEDS: PROTONIX IV 40 MG IV ×2 (08:44→21:58)
[2024-11-09] MEDS: NSS (PRESERVATIVE FREE) 10 ML IV ×2 (08:45→21:57)
[2024-11-09] MEDS: NEUTRA-PHOS POWDER PACKET 250 MG PO ×4 (08:53→22:01)
[2024-11-09] MEDS: HYDROPHOR 1 APPLIC TOPICAL (08:59)
--- NOTE | 2024-11-09 10:45 | W.PN.HOSP.TC ---
Today's Communication/Plan
-
See plan
Assessment / Plan
Assessment / Plan
Physical Exam
General: No Apparent Distress
Respiratory: Clear to Auscultation
Cardiac: S1 and S2. Regular Rhythm
GI: Soft, Nontender and Nondistended. Positive bowel sounds.
Skin: Warm
Neuro: Awake and Alert
Psych: Calm
Assessment/Plan
59yo M with PMHx of ESRD on HD, Hx of c.diff, intraabdominal abscess, CVA s/p PEG and paraplegia, non-verbal, Afib on Eliquis brought from [facility] with anemia and hematemesis. S/P Kcentra in ED. FOund severe gastritis on EGD. Also Acute
urinary retention (New [place] placed) and leukocytosis, concern for C.diff related. Monitoring on oral vanco with assistance of ID, who recommended to stop IV Abx. Also POA is looking to change facility - CM discussed in details with POA - patient to
return to [facility] where CM and social service liaison will assist with eventual transfer to new facility.
#Acute blood loss anemia 2/2 GIB on anemia of chronic disease 2/2 ESRD
#Erosive gastritis (no H. pylori on path)
Bleeding most liekly exacerbated by ELqiuis
Two large bore IV, serial H&H, transfuse to keep Hgb >7
GI consult: s/p EGD - severe gastritis, repeat EGD in 2 months, replace PEG in 4 weeks (not done on this admission due to severe gastritis)
PPI, Carafate
s/p 2 units PRBC
#Diarrhea
#Chronic loose stool 3-4 per day
History of recent C.diff
Imodium dose increased to 2 mg BID scheduled to help with the loose stool
He is currently being treated for C. difficile for toxin negative antigen positive
stool C.diff PCR positive and toxin neg
Reduce frequency of PO Vancomycin to help with patient's diarrhea which in turn can be affecting patient's wounds
Rectal tube taken out on 11/08/24 as tube risk for irritation with continued use and SNF needs out prior to transfer
#Hypokalemia
-Replacement ordered
#Leukocytosis
#Bacteremia
#Sacral/Buttocks Wounds -- looking worse as of 11/09/24
Extended Hx of of sacral wound mgmt in [facility]
CT abd/pelvis showed enterocolitis -- GI assistance appreciated
FMS was previously applied to avoid wound contamination -- but taken out on 11/08/24 given the reasons above, and Imodium increased
Given concern for stool contaminating patient's wound in close proximity to his rectal area, consulted colorectal surgery for possible colostomy bag -- but patient is too high risk for surgery with extremely high risk for complications -- colorectal
surgeon spoke with patient's , mentioned that it would be technically challenging due to his prior surgeries, which limit options for ostomy locations. At this time, patient's is not interested in colostomy with these risks in mind.
Avoid prolonged rectal tube utilization given risk for more ulcers
Probiotic and reduce frequency of PO Vancomycin to daily prophylaxis to see whether that helps with diarrhea
Start on 11/09/24 short course Meropenem 1g IV q24h to treat infected wounds and reduce bioburden.
#Acute urinary retention
#Phimosis
s/p [place]
drained 2L of urine as per Urologist
Difficult [place]
Tamsulosin/Finasteride cannot be crushed for PEG -will need to be d/c on [place]
#ESRD on HD
#Mild hypokalemia
nephrology for HD
HD as per nephro
#Minimal alk.phos elevation
Resolved
#mild relative left-sided 'bulging' of the intestinal tract
atrophy of the rectus abdominis musculature
#Dysphagia
on PEG
Continue tube feeding diet
#Hx of CVA with residual aphasia and paraplegia
#Nonverbal
COnt ELiquis on 11/03/24 as per GI
#History of Trach
-Previously removed
#Afib on eliquis
cont tele
Continue Eliquis
DVT ppx SCDs. Eliquis.
Full code
#Bilateral atelectasis
2/2 bedbound status
cannot follow instruction for IS approprietly
#Asymptomatic cholelithiasis
#Hepatosplenomegaly
Outpatient follow up
#L ischium with healing suspect stage 2 vs stage 3'
Wound care
On 11/09/24, I called patient's Key and I answered all of her questions and concerns to satisfaction.
Total time spent on caring for patient, including chart review, seeing and examining the patient, documentation, extensive communication with other specialist physicians, and speaking with patient's , was 85 minutes.
Anticipated Discharge: > 48 hours
Subjective/Interval History
-
Date of Service: November 09, 2024
Patient was seen and examined. He had a big liquid bowel movement overnight, as per the patient's nurse.
Objective Data
-
Labs:
Laboratory Results
11/09/24
06:20
WBC 14.3 H
Hgb 8.2 L
Hct 26.7 L
Plt Count 248
Sodium 132 L
Potassium 4.1
Chloride 98
Carbon Dioxide 29
BUN 30 H
Creatinine 2.3 H
Glucose 144 H
Calcium 8.2 L
Vital Signs:
Vital Signs
Temp Pulse Resp BP Pulse Ox
99.4 F 85 26 113/56 98
11/09/24 08:00 11/09/24 08:00 11/09/24 08:00 11/09/24 08:00 11/09/24 08:30
I&O
11/08/24 11/09/24 11/10/24
06:59 06:59 06:59
Intake Total 1100 / 1100
Output Total 250 / 250
Balance 850 / 850
--- NOTE | 2024-11-09 11:16 | WOUNDNOTE ---
SACRUM/BUTTOCKS OVERVIEW
--- NOTE | 2024-11-09 11:17 | WOUNDNOTE ---
R SACRUM AND BUTTOCK
--- NOTE | 2024-11-09 11:17 | WOUNDNOTE ---
L/ R ISCHIUM AND PERIRECTAL
--- NOTE | 2024-11-09 11:22 | WOUNDNOTE ---
WON RN NOTE: Followed up today along with nurse Brooks, certified nursing assistant instructor and Dr. Colon. Internal fecal workforce management manager removed per order and patient continues to have frequent loose stools, 4 bouts while changing dressing. Imodium on order and given by
nurse, stools remain loose, on tube feeds. All wounds look worse compared to last seen and difficult to keep clean due to loose stools. New wounds have started, R of sacrum and buttocks, suspect stage 3 PI mixed with incontinent associated skin
damage. Unable to apply external fecal pouch due to closeness of sacral wound to rectum. Ideally Colostomy would benefit patient if internal fecal workforce management manager not an option. Discussed the above with Dr. Colon who will place a surgical consult. Can
stoma site patient later today if Colostomy deemed appropriate. Patient remains on an air mattress with turning schedule. Heels dry, R medial heel with old flaking skin from cracked fissure, foams changed. Pillow in use under calves. Mineral oil
applied by student nurse to legs and feet.
[2024-11-09 11:40] LABS: Glucose - Point of Care 154 mg/dl (70-99)
[2024-11-09] MEDS: IMODIUM 2 MG TUBE ×2 (11:46→21:56)
--- NOTE | 2024-11-09 11:55 | W.PN.NEPH.PH ---
Today's Communication / Plan
-
HD tomorrow
Assessment/Plan
-
IMP:
Acute blood loss anemia 2/2 GIB on anemia of chronic disease 2/2 ESRD
Diarrhea
Hx of recent C.diff
Leukocytosis
ESRD on HD-MWF [facility]
left UE AVF
right chest wall catheter
Mild hypokalemia
Dysphagia on PEG
Hx of CVA with residual aphasia and paraplegia
Urine retention
NIDDM
Plan:
HD tomorrow
continue TF with FWF 25
ok to replace phos given diarrhea
follow hgb
-
-
Date of Service: November 09, 2024
CC / HPI / ROS
-
Chief Complaint:
ESRD
History of Present Illness:
ESRD MWF
toelrated HD yesterday
hemodynamically stable
Anemia stable
still diarrhea
Review of Systems:
no fever
W[place] but oliguric
non verbal baseline
Labs
-
Labs:
WBC 14.3 10^3/uL (4.8-10.8) H 11/09/24 06:20
RBC 2.94 10^6/uL (4.70-6.10) L 11/09/24 06:20
Hgb 8.2 g/dL (13.0-18.0) L 11/09/24 06:20
Hct 26.7 % (39.0-52.0) L 11/09/24 06:20
Plt Count 248 10^3/uL (130-400) 11/09/24 06:20
Sodium 132 mmol/L (135-145) L 11/09/24 06:20
Potassium 4.1 mmol/L (3.5-5.1) 11/09/24 06:20
Chloride 98 mmol/L (98-107) 11/09/24 06:20
Carbon Dioxide 29 mmol/L (22-30) 11/09/24 06:20
BUN 30 mg/dl (9-20) H 11/09/24 06:20
Creatinine 2.3 mg/dL (0.7-1.3) H 11/09/24 06:20
eGFR 31.91 11/09/24 06:20
Glucose 144 mg/dl (70-99) H 11/09/24 06:20
Calcium 8.2 mg/dl (8.4-10.2) L 11/09/24 06:20
Phosphorus 1.4 mg/dl (2.5-4.5) L 11/09/24 06:20
Albumin 2.6 g/dl (3.5-5.0) L 11/06/24 06:39
Physical Exam
-
Vital Signs:
Vital Signs
Temp Pulse Resp BP Pulse Ox
99.4 F 85 26 113/56 98
11/09/24 08:00 11/09/24 08:00 11/09/24 08:00 11/09/24 08:00 11/09/24 08:30
Cardiovascular:: Regular rate and rhythm
Respiratory:: Bilateral: Coarse
Lung Excursion:: Normal
Abdomen:: Nontender and Soft
Bowel Sounds:: Normal
Extremity Edema:: None: Bilateral:
--- NOTE | 2024-11-09 12:12 | W.PN.GI.CBS2 ---
Addendum entered and electronically signed by En Cortes MD 11/09/24 19:26:
I saw and examined the patient.
The SUBSTITUTE TEACHER's note was reviewed and I agree with the note.
Continues to have loose stool this am as per RN . baseline 3-4 loose stool in SNF
--Will increase Imodium to twice daily. ok to adjust dose with BM
- cont vanco
-- Colorectal eval noted.
-- Continue with PPI twice daily/Carafate
-- Follow-up with GI for repeat EGD/PEG change
- No further recommendation. Will sign off
Original Note:
Today's Communication / Plan
-
rectal tube out as tube risk for irritation with continued use and SNF needs out prior to transfer-- pt had 1 stool last PM and 1 this am-- I spoke with SNF baseline in 3-4 loose stool daily -- pt is at baseline but still loose stool
concern is sacral wound with liquid stool and wound close proximity-- I will trial increase Imodium to standing BID as has been on 6 days of vanco therapy
for colorectal eval to see if diversion ostomy needed to prevent contamination
C/w PPI BID, and Carafate BID
OP follow up for office visit and repeat EGD and peg change
Assessment / Plan
-
Jordon is a 59 year old man with a past medical history significant for CVA with residual paraplegia/aphasia, s/p trach (now removed), PEG tube placed in Mar 2023 (last changed January 2024), w/ h/o intraabdominal abscess with necrotizing infection
requiring multiple surgeries and removal of PEG placement (May 2023), afib (on Eliquis), NIDDM, CHF (unsure of last echo), ESRD on Dialysis MWFr (R IJ Permacath), hypertension who presented from [facility] with complaints of 2 episodes of blood
emesis and brown liquid stool in ED.
11/03/[address] Silvestre
- Normal esophagus.
- Erythematous mucosa in the gastric body, fundus, and antrum. Biopsied. Suspect this was the cause of the hematemesis and anemia.
- Normal examined duodenum.
#EGD with marked erythematous mucosa with contact bleeding
#Limited Ct with possible enteritis/colitis
#Bloody Emesis
#Anemia, multifactorial (Acute Blood Loss, CKD, probable AMBER)
Acute blood loss anemia presumed secondary to upper GI bleed, requiring 2 units PRBC transfusion
s/p EGD 11/03 with significant gastritis of unclear etiology, biopsies showing erosive gastritis, negative for H. pylori. PEG not changed at that time due to significant gastritis.
Pt is on chronic Sevelamer which can cause crystal deposition in the gastric mucosa leading to ulceration, inflammation, bleeding, etc.
C/w PPI BID, and Carafate BID
Hemoglobin remained stable after restarting Eliquis. transfuse to keep hgb >7
GI to arrange 3-4 week follow up. Will do EGD with peg change in 8 weeks-- I sent message to GI office to arrange
#Diarrhea with bleeding
Bleeding remains resolved
rectal tube out as tube risk for irritation with continued use and SNF needs out prior to transfer-- pt had 1 stool last PM and 1 this am-- I spoke with SNF baseline in 3-4 loose stool daily -- pt is at baseline but still loose stool
concern is sacral wound with liquid stool and wound close proximity-- I will trial increase Imodium to standing BID as has been on 6 days of vanco therapy
for colorectal eval to see if diversion ostomy needed to prevent contamination
#C-diff + tox neg
ID following -- cont Vanco for 10d course with C-diff + tox neg, stool WBC neg on admission.
Other stool cultures negative
If anemia or diarrhea continues, would need to consider colonoscopy to rule out mass vs. bx for microscopic colitis as possible cause of continuing watery diarrhea despite abx for C. diff.
Would try to improve upper GI irritation prior to colo prep if able
#PEG tube/chronic dysphagia
C/w slow tube feed advancement
Clean tube as needed with brush if becomes clogged
need replacement with repeat EGD
Subjective
Subjective
Date of Service: November 09, 2024
still with loose stools -- one last PM and large loose this am tolerating tube feeds at 55ml/hr
Objective
Data Reviewed
Laboratory Data:
Laboratory Results
11/09/24 06:20
11/09/24 06:20
Laboratory Results
PT 16.5 Sec (11.4-14.6) H 11/02/24 05:44
INR 1.30 11/02/24 05:44
APTT 36.7 Sec (23.4-35.0) H 11/02/24 05:44
Phosphorus 1.4 mg/dl (2.5-4.5) L 11/09/24 06:20
Magnesium 2.2 mg/dl (1.6-2.3) 11/09/24 06:20
Total Bilirubin 0.4 mg/dl (0.2-1.3) 11/06/24 06:39
AST 16 U/L (17-59) L 11/06/24 06:39
ALT 18 U/L (0-50) 11/06/24 06:39
Alkaline Phosphatase 135 U/L (38-126) H 11/06/24 06:39
Lipase 262 U/L (23-300) 11/01/24 23:13
Vital Signs and I&O:
Vital Signs
Temp Pulse Resp BP Pulse Ox
99.4 F 85 26 113/56 98
11/09/24 08:00 11/09/24 08:00 11/09/24 08:00 11/09/24 08:00 11/09/24 08:30
I&O
11/08/24 11/09/24 11/10/24
06:59 06:59 06:59
Intake Total 1100 / 1100
Output Total 250 / 250
Balance 850 / 850
Physical Exam
Physical Exam
HEENT: Other (pt unresponsive )
Cardiology: Normal Sinus Rhythm
Pulmonary: Clear
GI: Soft, Non Distended, Non Tender and Other (large scar )
Extremities: No Edema
Neuro: Other (non verbal with eye opening )
--- NOTE | 2024-11-09 12:59 | W.PN.ID1 ---
Date of Service
Date of Service: November 09, 2024
Today's Communication
See below.
Assessment / Plan
# Sacral wounds deterioration due to stool contamination
# Leukocytosis
# s/p Upper GI bleed with blood loss anemia
# Diarrhea- resolved. Now with frequent loose stools
# CoNS bacteremia (1 of 2 sets) = contaminant
# Recent h/o C. difficile August 2024
# ESRD on HD via HD cath
# CVA, paraplegia, bed bound, PEG on tube feed
- Diverting colostomy considered, but pt high risk surgery per Colorectal.
- To maximize medical management.
Appreciate GI - increase Imodium to bid
- ? any benefit to adding probiotic
- Start short course meropenem 1g IV q24h to treat infected wounds and reduce bioburden.
- C. dif Ag positive, toxin negative suggestive colonization
- Decrease po vancomycin to 125mg daily, C. diff prophylaxis while on systemic abx.
-trend wbc
Chief Complaint
-: Leukocytosis, C-diff and Bacteremia
Vital Signs / Physical Exam
Vital Signs
Vital Signs
Temp Pulse Resp BP Pulse Ox
99.4 F 85 26 113/56 98
11/09/24 08:00 11/09/24 08:00 11/09/24 08:00 11/09/24 08:00 11/09/24 08:30
Physical Exam
Constitutional: Comfortable and Chronically Ill
Pulmonary: Clear
Gastrointestinal: Soft, Non Tender, Non Distended and Other (PEG tube in place)
Genito-Urinary: [place] and Clear Urine
Extremities: Negative Edema
Wound: Other (Reviewed today's wound photos. Sacral and buttock wounds deeper with yellow mariee slough, new wounds present.)
Lines: HD Cath
Objective Data
Lab Data
Lab Results
11/09/24 06:20
11/09/24 06:20
PT 16.5 Sec (11.4-14.6) H 11/02/24 05:44
INR 1.30 11/02/24 05:44
APTT 36.7 Sec (23.4-35.0) H 11/02/24 05:44
Estimated Creat Clear 35 ml/min 11/09/24 06:20
Total Bilirubin 0.4 mg/dl (0.2-1.3) 11/06/24 06:39
AST 16 U/L (17-59) L 11/06/24 06:39
ALT 18 U/L (0-50) 11/06/24 06:39
Alkaline Phosphatase 135 U/L (38-126) H 11/06/24 06:39
Most recent labs reviewed.
Micro Results:
11/02/24 10:13 Blood Culture - Final
Blood/Venous Coagulase neg. staphylococcus
Additional testing on request
Gram Stain - Final
11/03/24 11:21 Blood Culture - Final
Blood/Venous No Growth - Final Report
11/03/24 11:00 Blood Culture - Final
Blood/Venous No Growth - Final Report
11/02/24 11:31 Blood Culture - Final
Blood/Venous No Growth - Final Report
11/01/24 23:13 Salmonella/Shigella Culture - Final
Feces/Stool No Salmonella, Shigella, Aeromonas or Plesiomonas species
isolated.
Campylobacter Culture - Final
No Campylobacter species isolated.
Shiga Toxin Test - Final
No E. coli Shiga Toxin 1 or 2 detected.
Stool Leukocytes - Final
11/02/24 12:37 Urine Culture - Final
Urine NO GROWTH
11/02/24 07:41 MRSA Screen - Final
Nose No Methicillin Resistant Staphylococcus aureus isolated.
11/01/24 23:13 C. difficile GDH Antigen & Toxins - Final
Feces/Stool C. difficile antigen positive, toxin negative.
Clostridium difficile present, but toxin not detected.
Patient may be a carrier, colonized with nontoxinogenic
strain or the level of toxin in sample is below detection
limits. This information should be used in conjunction with
the patient's clinical history.
XR Abdomen 11/02/24: Grossly nonobstructive bowel gas pattern.
CXR 11/02/2024: Low lung volumes.
Left mid to lower lung thickened linear opacity most likely representing subsegmental atelectasis.
Abdomen/pelvis CT 11/02/2024: Limited evaluation of intestinal tract as a result of several factors including marked beam hardening artifact from the patient's bilateral upper extremities, motion artifact and lack of oral contrast opacification of
majority of large bowel. No intestinal obstruction or free air.
Some suspected mild thickening of nondilated loops of proximal to mid small bowel, nonspecific, could represent enteritis.
Markedly limited evaluation of the descending colon, sigmoid and rectum without oral contrast opacification and with some beam hardening artifact, some at least SUSPECTED WALL THICKENING SUCH COLITIS.
Lack of demonstrable renal excretion bilaterally compatible with ESRD and hemodialysis. Small bilateral low-attenuation renal lesions too small to characterize.
Hepatosplenomegaly.
Bilateral lower lobe subsegmental atelectasis, left greater than right, cannot exclude left lower lobe pneumonia, evaluation overall limited as a result of marked beam hardening artifact.
Cholelithiasis.
Cannot exclude small pericardial effusion, limited by beam hardening artifact.
Marked edematous changes widespread throughout the abdominal and pelvic wall.
Marked atrophy of the rectus abdominis musculature with mild relative left-sided 'bulging' of the intestinal tract.
Care Review
Plan reviewed with: Nurse (Cecy Gallardo), Physician (Rudolph Castro) and Other Provider (PENG Casper)
--- NOTE | 2024-11-09 13:36 | CON.CRS ---
Consultation
-
Date/Time Consultation Requested: 11/09/2024, 11:30
Date/Time Consultation Performed: 11/09/2024, 13:45
Requesting Provider: Brendan Colon MD
Performing Provider: Lee Galdamez MD
Reason for Consultation: stoma
Medical History
-
Chief Complaint: chronic sacral wound
History of Present Illness:
Patient is nonverbal. Medical history obtained from the chart.
59-year-old male with a significant past medical history of CVA with aphasia and paraplegia, PEG, end-stage renal disease on hemodialysis, atrial fibrillation, and status post multiple exploratory laparotomy due to an intra-abdominal abscess,
presents to [facility] from his snf due to two episodes of bloody emesis. He has not been seen at this hospital before but apparently was diagnosed with C. difficile about 2 months ago and has undergone treatment. CT of the abdomen
and pelvis revealed no obstruction or free air but some mild thickening of nondilated loops of proximal to mid small bowel, also suspected wall thickening such as colitis in the descending, sigmoid, and rectum. His hemoglobin was 6.6 on admission
and he required some blood transfusions. The patient then underwent EGD by Dr. Malik which showed a normal esophagus, erythematous mucosa in the gastric body, fundus, and antrum. They suspect this was the cause of hemostasis and anemia. The
patient was placed with a rectal tube due to multiple loose stools a day. Apparently his baseline is several episodes of loose stool day at the snf. He has since been placed on Imodium twice daily. There was some concern of the sacral
wound from infectious disease. He has been on a short course of meropenem to treat the infected wounds. He did test positive for C. difficile antigen but toxin negative so it is suggestive of colonization. However he has been placed on daily
vancomycin. Given concern from infectious disease as well as wound care, we have been consulted to evaluate for a potential colostomy.
Past Medical History
Past Medical History: Other (Arrhythmia (Atrial fibrillation), CVA (Residual aphasia and paraplegia, residual dysphagia status post PEG), HTN and Renal Failure (End-stage renal disease on hemodialysis [facility] via right IJ PermCath,
he is status post a left upper extremity AV fistula 1 month ago))
Past Surgical History: Other (PEG tube placement, exploratory laparotomy)
Social History
Tobacco: Other (unable to obtain social: nonverbal )
Family History
Family History: Unable to Obtain
Allergies / Home Medications
Allergy/AdvReac Type Severity Reaction Status Date / Time
No Known Allergies Allergy Verified 11/01/24 22:20
�Medication �Instructions �Recorded �Confirmed �Type
allopurinol 100 mg tablet 100 mg feeding tube DAILY Gout 11/02/24 11/02/24 History
apixaban 5 mg tablet (Eliquis) 5 mg feeding tube BID Blood Clot 11/02/24 11/02/24 History
Prevention/Tx
hydralazine 25 mg tablet 25 mg feeding tube TID Blood 11/02/24 11/02/24 History
Pressure
nystatin 100,000 unit/mL oral 11/02/24 History
suspension
ondansetron HCl 8 mg tablet 8 mg feeding tube TID NAUSEA 11/02/24 11/02/24 History
sevelamer HCl 800 mg tablet 800 mg feeding tube TID Kidney 11/02/24 11/02/24 History
Disease
Review of Systems
-
Unable to obtain full review of systems at this time due to: Patient Non Verbal
Abdomen/GI: Vomiting (bloody) and Diarrhea
A 10 point review of systems was completed, and was negative except as per HPI.
Physical Exam
Vital Signs
Temp 99.4 F 11/09/24 08:00
Pulse 85 11/09/24 08:00
Resp Rate 26 11/09/24 08:00
Blood pressure 113/56 11/09/24 08:00
SaO2 98 11/09/24 08:30
11/08/24 11/09/24 11/10/24
06:59 06:59 06:59
Actual Weight 91.217 kg 90.764 kg
Body Mass Index (BMI) 29.6
Lab Results / Allergies
11/09/24 06:20
11/09/24 06:20
WBC 14.3 10^3/uL (4.8-10.8) H 11/09/24 06:20
Hgb 8.2 g/dL (13.0-18.0) L 11/09/24 06:20
Hct 26.7 % (39.0-52.0) L 11/09/24 06:20
Plt Count 248 10^3/uL (130-400) 11/09/24 06:20
Abs Immat Gran (auto) 0.6 10^3/uL (0-0.05) H 11/09/24 06:20
Neutrophils % 73.3 % (42.2-75.2) 11/09/24 06:20
Allergy/AdvReac Type Severity Reaction Status Date / Time
No Known Allergies Allergy Verified 11/01/24 22:20
Physical Exam
General: Other (nonverbal. No distress. opens eyes to voice. Does not follow commands. )
GI: Soft, Non Distended and Incisions (midline up to almost ziphoid process. peg tube in place. )
Neuro: Awake
Data Reviewed
-
CT Scan: Image Personally Visualized and interpreted, Report Reviewed by me and Discussed with Physician
Labs: Labs Reviewed by me and Discussed with Physician
Old Records: Requested
Assessment / Plan
-
Assessment: 59-year-old male with a significant past medical history of CVA with aphasia and paraplegia, PEG, end-stage renal disease on hemodialysis, atrial fibrillation, and status post multiple exploratory laparotomy due to an intra-abdominal
abscess, presents to [facility] from his snf due to two episodes of bloody emesis, Cdiff antigen positive, sacral wound, and colitis on CT
Plan:
-Patient is a high risk for surgery given his chronic conditions and prior abdominal surgeries. Dr. Galdamez will talk this over with his and present the options. Chance of complications are high given his comorbidities.
-Continue Imodium per GI to help with loose stools
-Plans to follow.
[2024-11-09] MEDS: MERREM 1000 MG IV (14:43)
[2024-11-09] MEDS: STERILE WATER FOR INJECTION 20 ML IV (14:44)
[2024-11-09 15:00] VITALS: BP 163/74
[2024-11-09 18:37] LABS: Glucose - Point of Care 125 mg/dl (70-99)
[2024-11-09] MEDS: ELIQUIS 5 MG TUBE (21:56)
[2024-11-09] MEDS: LACTOBACILLUS RHAMNOSUS GG 1 PACKET TUBE (21:56)
[2024-11-09 23:00] VITALS: BP 152/72
[2024-11-09 23:56] LABS: Glucose - Point of Care 125 mg/dl (70-99)
[2024-11-10 05:50] LABS: Glucose - Point of Care 108 mg/dl (70-99)
[2024-11-10 06:00] VITALS: BMI 28.8
[2024-11-10] MEDS: NOVOLOG FLEXPEN-LOW RESISTANCE SC ×4 (06:18→23:50)
[2024-11-10 07:00] VITALS: BP 121/69
[2024-11-10 07:16] LABS: Hematocrit 25.8 % (39.0-52.0); Hemoglobin 7.9 g/dL (13.0-18.0); Mean Corp Hgb Conc. 30.6 g/dL (33.0-37.0); Mean Corpuscular Volume 91.2 fL (80.0-94.0); Nucleated Red Blood Cells % 0 % (-); Platelet Count 239 10^3/uL (130-400); Red Cell Dist. Width 14.9 % (11.5-14.5)
[2024-11-10 07:18] LABS: Blood Urea Nitrogen 41 mg/dl (9-20); Calcium 8.4 mg/dl (8.4-10.2); Carbon Dioxide 29 mmol/L (22-30); Chloride 98 mmol/L (98-107); Estimated Creatinine Clearance 27 ml/min; Glucose 125 mg/dl (70-99); Potassium 4.2 mmol/L (3.5-5.1); Sodium 132 mmol/L (135-145); eGFR 23.20
--- NOTE | 2024-11-10 08:55 | W.PN.GI.CBS2 ---
Addendum entered and electronically signed by PENG Seals 11/10/24 11:47:
abd X ray small to moderate stool no overflow will increase Imodium to see if helps
Original Note:
Today's Communication / Plan
-
see plan as below
check Abd xray for stool burden to exclude overflow
may be at baseline stool
pt remains on Imodium BID, Metamucil and carafate that may also be constipating
if x ray neg consider increasing Imodium dose
s/p surgical eval as noted
can consider flex/colon but high risk as also noted per surgical team -- ideally allow stomach to heal prior to proceeding
cont PPI/carafate and for eventual repeat EGD with peg change to allow stomach to head
Assessment / Plan
-
Jordon is a 59 year old man with a past medical history significant for CVA with residual paraplegia/aphasia, s/p trach (now removed), PEG tube placed in Mar 2023 (last changed January 2024), w/ h/o intraabdominal abscess with necrotizing infection
requiring multiple surgeries and removal of PEG placement (May 2023), afib (on Eliquis), NIDDM, CHF (unsure of last echo), ESRD on Dialysis MWFr (R IJ Permacath), hypertension who presented from [place] with complaints of 2 episodes of blood
emesis and brown liquid stool in ED.
11/03/[address] Silvestre
- Normal esophagus.
- Erythematous mucosa in the gastric body, fundus, and antrum. Biopsied. Suspect this was the cause of the hematemesis and anemia.
- Normal examined duodenum.
#EGD with marked erythematous mucosa with contact bleeding
#Limited Ct with possible enteritis/colitis
#Bloody Emesis
#Anemia, multifactorial (Acute Blood Loss, CKD, probable AMBER)
Acute blood loss anemia presumed secondary to upper GI bleed, requiring 2 units PRBC transfusion
s/p EGD 11/03 with significant gastritis of unclear etiology, biopsies showing erosive gastritis, negative for H. pylori. PEG not changed at that time due to significant gastritis.
Pt is on chronic Sevelamer which can cause crystal deposition in the gastric mucosa leading to ulceration, inflammation, bleeding, etc.
C/w PPI BID, and Carafate BID
Hemoglobin remained stable after restarting Eliquis. transfuse to keep hgb >7
GI to arrange 3-4 week follow up. Will do EGD with peg change in 8 weeks-- I sent message to GI office to arrange
#Diarrhea with bleeding
Bleeding remains resolved
rectal tube out as tube risk for irritation with continued use and SNF needs out prior to transfer--
2 large loose stools overnight
may be at baseline for stool normal 3-4 loose stools daily prior to admission per SNF
will check Abd X ray for stool burden to exclude overflow
can consider flex/colon with diarrhea and anemia but high risk for procedures as discussed with colorectal surgery
pt remains on Imodium BID, Metamucil and carafate that may also be constipating
Pt also remain on abx per ID
# sacral wound
s/p colorectal eval for diversion with wound -- family deferred with surgical risks
#C-diff + tox neg
ID following -- cont Vanco for 10d course with C-diff + tox neg, stool WBC neg on admission.
Other stool cultures negative
#PEG tube/chronic dysphagia
tube feeds goal
Clean tube as needed with brush if becomes clogged
need replacement with repeat EGD
Subjective
Subjective
Date of Service: November 10, 2024
2 large stools since yesterday afternoon, continue on tube feeds
Objective
Data Reviewed
Laboratory Data:
Laboratory Results
11/10/24 06:07
11/10/24 06:07
Laboratory Results
PT 16.5 Sec (11.4-14.6) H 11/02/24 05:44
INR 1.30 11/02/24 05:44
APTT 36.7 Sec (23.4-35.0) H 11/02/24 05:44
Phosphorus 2.3 mg/dl (2.5-4.5) L 11/10/24 06:07
Magnesium 2.2 mg/dl (1.6-2.3) 11/09/24 06:20
Total Bilirubin 0.4 mg/dl (0.2-1.3) 11/06/24 06:39
AST 16 U/L (17-59) L 11/06/24 06:39
ALT 18 U/L (0-50) 11/06/24 06:39
Alkaline Phosphatase 135 U/L (38-126) H 11/06/24 06:39
Lipase 262 U/L (23-300) 11/01/24 23:13
Vital Signs and I&O:
Vital Signs
Temp Pulse Resp BP Pulse Ox
99.0 F 87 18 121/69 100
11/10/24 07:00 11/10/24 07:00 11/10/24 07:00 11/10/24 07:00 11/10/24 07:00
I&O
11/09/24 11/10/24 11/11/24
06:59 06:59 06:59
Intake Total 0 / 0
Output Total 200 / 200
Balance -200 / -200
Physical Exam
Physical Exam
HEENT: Anicteric and Moist mucous membranes
Cardiology: Normal Sinus Rhythm
Pulmonary: Clear
GI: Soft, Non Distended and Non Tender
Extremities: No Edema
Neuro: Other (opens eyes non verbal )
[2024-11-10] MEDS: PROTONIX IV 40 MG IV ×2 (10:24→20:45)
[2024-11-10] MEDS: NSS (PRESERVATIVE FREE) 10 ML IV ×2 (10:24→20:45)
[2024-11-10] MEDS: METAMUCIL, KONSYL 1 PACKET TUBE (10:25)
[2024-11-10] MEDS: CARAFATE SUSPENSION 1 GM TUBE ×2 (10:25→20:45)
[2024-11-10] MEDS: ELIQUIS 5 MG TUBE ×2 (10:25→20:44)
[2024-11-10] MEDS: IMODIUM 2 MG TUBE (10:25)
[2024-11-10] MEDS: HYDROPHOR 1 APPLIC TOPICAL (10:25)
--- NOTE | 2024-11-10 11:30 | WOUNDNOTE ---
R HEEL (MEDIAL POSTERIOR_
--- NOTE | 2024-11-10 11:30 | WOUNDNOTE ---
SACRAL/PERIANAL/BUTTOCKS
--- NOTE | 2024-11-10 11:43 | WOUNDNOTE ---
[facility] RN note: Patient on tube feeding. Patient incontinent of some loose stool. ADRIANA Robledo stated she cleaned patient up an hour ago d/t loose stool incontinence. GI following. Ester care given. Sacral/ischial dressings changed. R sacral ulcer next
to center sacral stage 4 ulcer appears to be a deep dermal stage 2 vs healing stage 3. Skin on heels intact. R medial heel with small discolored area which is not new from reviewing photos; appears chronic. Protective heel foam dressings changed.
Static air overlay applied after discussion with ADRIANA Robledo. Patient turned to L semi side lying position with help from RN educator Thao. Heels off bed with pillow. Will follow as needed.
[2024-11-10 11:58] LABS: Glucose - Point of Care 135 mg/dl (70-99)
--- NOTE | 2024-11-10 12:17 | W.PN.ID1 ---
Date of Service
Date of Service: November 10, 2024
Today's Communication
Continue meropenem and ppx po Vanco.
Assessment / Plan
# Sacral wounds deterioration due to stool contamination
# Leukocytosis improved
# s/p Upper GI bleed with blood loss anemia
# Diarrhea- resolved. Now with frequent loose stools
# CoNS bacteremia (1 of 2 sets) = contaminant
# Recent h/o C. difficile August 2024
# ESRD on HD via HD cath
# CVA, paraplegia, bed bound, PEG on tube feed
- Too high risk for diverting colostomy per Colorectal.
- To maximize medical management, bulk up stool
GI - increased Imodium to bid, on soluble fiber
- ? any benefit to adding probiotic
- Continue short course meropenem 1g IV q24h (d2 of 5-7) to treat infected wounds and reduce bioburden.
- C. dif Ag positive, toxin negative suggestive colonization
- Conitnue po vancomycin to 125mg daily, C. diff prophylaxis while on systemic abx.
-trend wbc
Chief Complaint
-: Leukocytosis
Vital Signs / Physical Exam
Vital Signs
Vital Signs
Temp Pulse Resp BP Pulse Ox
99.0 F 87 18 121/69 100
11/10/24 07:00 11/10/24 07:00 11/10/24 07:00 11/10/24 07:00 11/10/24 07:00
Physical Exam
Constitutional: Comfortable and Chronically Ill
Cardiovascular: Regular Rate and S1/S2
Pulmonary: Clear
Gastrointestinal: Soft, Non Tender, Non Distended and Other (PEG tube in place)
Genito-Urinary: [place] and Clear Urine
Extremities: Negative Edema
Lines: HD Cath
Objective Data
Lab Data
Lab Results
11/10/24 06:07
11/10/24 06:07
PT 16.5 Sec (11.4-14.6) H 11/02/24 05:44
INR 1.30 11/02/24 05:44
APTT 36.7 Sec (23.4-35.0) H 11/02/24 05:44
Estimated Creat Clear 27 ml/min 11/10/24 06:07
Total Bilirubin 0.4 mg/dl (0.2-1.3) 11/06/24 06:39
AST 16 U/L (17-59) L 11/06/24 06:39
ALT 18 U/L (0-50) 11/06/24 06:39
Alkaline Phosphatase 135 U/L (38-126) H 11/06/24 06:39
Most recent labs reviewed.
Micro Results:
11/02/24 10:13 Blood Culture - Final
Blood/Venous Coagulase neg. staphylococcus
Additional testing on request
Gram Stain - Final
11/03/24 11:21 Blood Culture - Final
Blood/Venous No Growth - Final Report
11/03/24 11:00 Blood Culture - Final
Blood/Venous No Growth - Final Report
11/02/24 11:31 Blood Culture - Final
Blood/Venous No Growth - Final Report
11/01/24 23:13 Salmonella/Shigella Culture - Final
Feces/Stool No Salmonella, Shigella, Aeromonas or Plesiomonas species
isolated.
Campylobacter Culture - Final
No Campylobacter species isolated.
Shiga Toxin Test - Final
No E. coli Shiga Toxin 1 or 2 detected.
Stool Leukocytes - Final
11/02/24 12:37 Urine Culture - Final
Urine NO GROWTH
11/02/24 07:41 MRSA Screen - Final
Nose No Methicillin Resistant Staphylococcus aureus isolated.
11/01/24 23:13 C. difficile GDH Antigen & Toxins - Final
Feces/Stool C. difficile antigen positive, toxin negative.
Clostridium difficile present, but toxin not detected.
Patient may be a carrier, colonized with nontoxinogenic
strain or the level of toxin in sample is below detection
limits. This information should be used in conjunction with
the patient's clinical history.
XR Abdomen 11/02/24: Grossly nonobstructive bowel gas pattern.
CXR 11/02/2024: Low lung volumes.
Left mid to lower lung thickened linear opacity most likely representing subsegmental atelectasis.
Abdomen/pelvis CT 11/02/2024: Limited evaluation of intestinal tract as a result of several factors including marked beam hardening artifact from the patient's bilateral upper extremities, motion artifact and lack of oral contrast opacification of
majority of large bowel. No intestinal obstruction or free air.
Some suspected mild thickening of nondilated loops of proximal to mid small bowel, nonspecific, could represent enteritis.
Markedly limited evaluation of the descending colon, sigmoid and rectum without oral contrast opacification and with some beam hardening artifact, some at least SUSPECTED WALL THICKENING SUCH COLITIS.
Lack of demonstrable renal excretion bilaterally compatible with ESRD and hemodialysis. Small bilateral low-attenuation renal lesions too small to characterize.
Hepatosplenomegaly.
Bilateral lower lobe subsegmental atelectasis, left greater than right, cannot exclude left lower lobe pneumonia, evaluation overall limited as a result of marked beam hardening artifact.
Cholelithiasis.
Cannot exclude small pericardial effusion, limited by beam hardening artifact.
Marked edematous changes widespread throughout the abdominal and pelvic wall.
Marked atrophy of the rectus abdominis musculature with mild relative left-sided 'bulging' of the intestinal tract.
Care Review
Plan reviewed with: Other Provider (PENG Casper)
[2024-11-10] MEDS: RETACRIT 10000 UNITS IV (13:37)
[2024-11-10 15:00] VITALS: BP 120/56
--- NOTE | 2024-11-10 15:19 | W.PN.NEPH.HD ---
Assessment
-
pt seen during HD
vitals stable
UF as tolerated
off rectal tube but cont to have loose Bms
abx per ID
CVC functions fine
Progress Note - Hemodialysis
-
Date of Service: November 10, 2024
Duration: 30 minutes and 3 hours
Potassium Bath: 3
Calcium Bath: 2.5
Opti-Dialyzer: 160
Ultrafiltration: Other (1.5-2kg)
Blood Flow: 400
Dialysate Flow: 600
Heparin: no
EPO: [id number]
--- NOTE | 2024-11-10 15:39 | CM ---
patient chart reviewed
HD today
updated Gianna at [facility]
PLAN: [facility] when stable
[2024-11-10] MEDS: HEPARIN 3600 UNITS INTRACATH (15:55)
[2024-11-10] MEDS: MERREM 1000 MG IV (16:37)
[2024-11-10] MEDS: DAKIN'S SOLUTION 0.125% 1/4 STRENGTH 20 ML TOPICAL (16:37)
[2024-11-10] MEDS: STERILE WATER FOR INJECTION 20 ML IV (16:37)
--- NOTE | 2024-11-10 17:01 | W.PN.HOSP.TC ---
Today's Communication/Plan
-
Continue Meropenem, wound care, dialysis
Assessment / Plan
Assessment / Plan
Physical Exam
General: No Apparent Distress
Respiratory: Clear to Auscultation
Cardiac: S1 and S2. Regular Rhythm
GI: Soft, Nontender and Nondistended. Positive bowel sounds.
Skin: Warm
Neuro: Awake and Alert
Psych: Calm
Assessment/Plan
59yo M with PMHx of ESRD on HD, Hx of c.diff, intraabdominal abscess, CVA s/p PEG and paraplegia, non-verbal, Afib on Eliquis brought from [facility] with anemia and hematemesis. S/P Kcentra in ED. FOund severe gastritis on EGD. Also Acute
urinary retention (New [place] placed) and leukocytosis, concern for C.diff related. Monitoring on oral vanco with assistance of ID, who recommended to stop IV Abx. Also POA is looking to change facility - CM discussed in details with POA - patient to
return to [facility] where CM and social media analyst will assist with eventual transfer to new facility.
#Acute blood loss anemia 2/2 GIB on anemia of chronic disease 2/2 ESRD
#Erosive gastritis (no H. pylori on path)
Bleeding most likely exacerbated by ELqiuis
Monitor CBC/Hgb
Two large bore IV, serial H&H, transfuse to keep Hgb >7
GI consult: s/p EGD - severe gastritis, repeat EGD in 2 months, replace PEG in 4 weeks (not done on this admission due to severe gastritis)
PPI, Carafate
s/p 2 units PRBC
#Diarrhea
#Chronic loose stool 3-4 per day
History of recent C.diff
Imodium dose increased to help with the loose stool (also was recently changed to scheduled basis from PRN)
He is currently being treated for C. difficile for toxin negative antigen positive
stool C.diff PCR positive and toxin neg
Reduce frequency of PO Vancomycin to help with patient's diarrhea which in turn can be affecting patient's wounds
Rectal tube taken out on 11/08/24 as tube risk for irritation with continued use and SNF needs out prior to transfer
#Leukocytosis
#Bacteremia
#Sacral/Buttocks Wounds -- looking worse as of 11/09/24
Extended Hx of of sacral wound mgmt in [facility]
CT abd/pelvis showed enterocolitis -- GI assistance appreciated
FMS was previously applied to avoid wound contamination -- but taken out on 11/08/24 given the reasons above, and Imodium increased
Given concern for stool contaminating patient's wound in close proximity to his rectal area, consulted colorectal surgery for possible colostomy bag -- but patient is too high risk for surgery with extremely high risk for complications -- colorectal
surgeon spoke with patient's , mentioned that it would be technically challenging due to his prior surgeries, which limit options for ostomy locations. At this time, patient's is not interested in colostomy with these risks in mind.
Avoid prolonged rectal tube utilization given risk for more ulcers
Probiotic and reduce (on 11/09/24) frequency of PO Vancomycin to daily prophylaxis to see whether that helps with diarrhea
Start on 11/09/24 short course Meropenem 1g IV q24h (d2 of 5-7) to treat infected wounds and reduce bioburden.
#Acute urinary retention
#Phimosis
s/p Wellington
drained 2L of urine as per Urologist
Difficult Wellington
Tamsulosin/Finasteride cannot be crushed for PEG -will need to be d/c on Wellington
#ESRD on HD
#Mild hypokalemia
Potassium replacement previously ordered
nephrology for HD
HD as per nephro
#Minimal alk.phos elevation
Resolved
#mild relative left-sided 'bulging' of the intestinal tract
atrophy of the rectus abdominis musculature
#Dysphagia
on PEG
Continue tube feeding diet
#Hx of CVA with residual aphasia and paraplegia
#Nonverbal
COnt ELiquis on 11/03/24 as per GI
#History of Trach
-Previously removed
#Afib on eliquis
Continue Eliquis
#Bilateral atelectasis
2/2 bedbound status
cannot follow instruction for IS approprietly
#Asymptomatic cholelithiasis
#Hepatosplenomegaly
Outpatient follow up
#L ischium with healing suspect stage 2 vs stage 3'
Wound care
DVT ppx SCDs. Eliquis.
Full code
On 11/09/24, I called patient's Key and I answered all of her questions and concerns to satisfaction.
Anticipated Discharge: > 48 hours
Subjective/Interval History
-
Date of Service: November 10, 2024
Patient was seen and examined. He had 2 large stools since yesterday.
Objective Data
-
Labs:
Laboratory Results
11/10/24
06:07
WBC 12.8 H
Hgb 7.9 L
Hct 25.8 L
Plt Count 239
Sodium 132 L
Potassium 4.2
Chloride 98
Carbon Dioxide 29
BUN 41 H
Creatinine 3.0 H
Glucose 125 H
Calcium 8.4
Vital Signs:
Vital Signs
Temp Pulse Resp BP Pulse Ox
97.8 F 79 18 120/56 99
11/10/24 15:00 11/10/24 15:00 11/10/24 15:00 11/10/24 15:00 11/10/24 15:00
I&O
11/09/24 11/10/24 11/11/24
06:59 06:59 06:59
Intake Total 0 / 0 0 / 0
Output Total 200 / 200
Balance -200 / -200 0 / 0
[2024-11-10 18:16] LABS: Glucose - Point of Care 143 mg/dl (70-99)
[2024-11-10] MEDS: IMODIUM LIQUID 4 MG TUBE (20:44)
[2024-11-10] MEDS: LACTOBACILLUS RHAMNOSUS GG 1 PACKET TUBE (20:44)
[2024-11-10 23:12] LABS: Glucose - Point of Care 124 mg/dl (70-99)
[2024-11-10 23:21] VITALS: BP 133/60
[2024-11-11 05:43] LABS: Glucose - Point of Care 130 mg/dl (70-99)
[2024-11-11] MEDS: NOVOLOG FLEXPEN-LOW RESISTANCE SC ×2 (05:47→12:30)
[2024-11-11 06:07] VITALS: BMI 29.3
[2024-11-11 07:15] VITALS: BP 133/62
--- NOTE | 2024-11-11 07:35 | W.PN.HOSP.TC ---
Today's Communication/Plan
-
Discharge today
Assessment / Plan
Assessment / Plan
Physical Exam
General: No Apparent Distress
Respiratory: Clear to Auscultation
Cardiac: S1 and S2. Regular Rhythm
GI: Soft, Nontender and Nondistended. Positive bowel sounds.
Skin: Warm
Neuro: Awake and Alert
Psych: Calm
Assessment/Plan
59yo M with PMHx of ESRD on HD, Hx of c.diff, intraabdominal abscess, CVA s/p PEG and paraplegia, non-verbal, Afib on Eliquis brought from [facility] with anemia and hematemesis. S/P Kcentra in ED. FOund severe gastritis on EGD. Also Acute
urinary retention (New [place] placed) and leukocytosis, concern for C.diff related. Monitoring on oral vanco with assistance of ID, who recommended to stop IV Abx. Also POA is looking to change facility - CM discussed in details with POA - patient to
return to [facility] where CM and social work specialist will assist with eventual transfer to new facility.
#Acute blood loss anemia 2/2 GIB on anemia of chronic disease 2/2 ESRD
#Erosive gastritis (no H. pylori on path)
Bleeding most likely exacerbated by ELqiuis
Monitor CBC/Hgb
Two large bore IV, serial H&H, transfuse to keep Hgb >7
GI consult: s/p EGD - severe gastritis, repeat EGD in 2 months, replace PEG in 4 weeks (not done on this admission due to severe gastritis)
Continue Protonix BID and Carafate BID
s/p 2 units PRBC
Consider repeat upper endoscopy in 1.75 months to check healing given the severity of the gastritis and the inability to see the stomach completely under the white coating (? tube feeds?)
Will need GI follow-up in office in 3 weeks -- can either replace PEG then (not done on this admission due to severe gastritis) or at the EGD in 4 weeks
#Diarrhea
#Chronic loose stool 3-4 per day
#History of recent C.diff
Continue Metamucil and Imodium with continued evaluation for need to stop
Imodium dose increased to help with the loose stool (also was recently changed to scheduled basis from PRN)
He is currently being treated for C. difficile for toxin negative antigen positive
stool C.diff PCR positive and toxin neg
Reduce frequency of PO Vancomycin to help with patient's diarrhea which in turn can be affecting patient's wounds -- continue C. diff prophylaxis po vancomycin to 125mg daily through 11/18/24
Rectal tube taken out on 11/08/24 as tube risk for irritation with continued use and SNF needs out prior to transfer -- so can use external pouch if needed
#Leukocytosis
#Bacteremia
#Sacral and ischial decubitus wounds; sacral wound appears to be a stage III, ischial wounds appear to be stage I or II
Extended Hx of of sacral wound mgmt in [facility]
CT abd/pelvis showed enterocolitis -- GI assistance appreciated
FMS was previously applied to avoid wound contamination -- but taken out on 11/08/24 given the reasons above, and Imodium increased
Given concern for stool contaminating patient's wound in close proximity to his rectal area, consulted colorectal surgery for possible colostomy bag -- but patient is too high risk for surgery with extremely high risk for complications -- colorectal
surgeon spoke with patient's , mentioned that it would be technically challenging due to his prior surgeries, which limit options for ostomy locations. At this time, patient's is not interested in colostomy with these risks in mind.
Avoid replacement of rectal tube as a rectal tube for prolonged period will also cause decubitus ulcers and wounds
Probiotic and reduce (on 11/09/24) frequency of PO Vancomycin to daily prophylaxis to see whether that helps with diarrhea
At time of discharge, transition meropenem to Augmentin 500mg tube q24h (14:00) through 11/13/24.
#Acute urinary retention
#Phimosis
#Difficult Wellington Catheter
s/p [place]
drained 2L of urine as per Urologist
Difficult [place]
Tamsulosin/Finasteride cannot be crushed for PEG -will need to be d/c from hospital on [place] Catheter
Follow-up with urology outpatient
#ESRD on HD
#Mild hypokalemia
Potassium replacement previously ordered
nephrology for HD
HD as per nephro
I communicated with on-call business liaison officer today, and it is okay from their standpoint to discharge patient
#Hypophosphatemia
-Replaced
-Recheck outpatient, discuss with nephrology and supplement if needed
#Minimal alk.phos elevation
Resolved
#mild relative left-sided 'bulging' of the intestinal tract
atrophy of the rectus abdominis musculature
#Dysphagia
on PEG
Continue tube feeding diet
#Hx of CVA with residual aphasia and paraplegia
#Nonverbal
COnt ELiquis on 11/03/24 as per GI
#History of Trach
-Previously removed
#Afib on eliquis
Continue Eliquis
#Bilateral atelectasis
2/2 bedbound status
cannot follow instruction for IS approprietly
#Asymptomatic cholelithiasis
#Hepatosplenomegaly
Outpatient follow up
DVT ppx SCDs. Eliquis.
Full code
On 11/09/24, I called patient's Key and I answered all of her questions and concerns to satisfaction.
More than 30 minutes spent in discharge including
Final examination of the patient
Summarizing hospital stay
Instructions for continuing care to all relevant caregivers
Preparation of discharge records, prescriptions, and referral forms
Total time spent (in minutes): 38
Anticipated Discharge: Today
Subjective/Interval History
-
Date of Service: November 11, 2024
Patient was seen and examined. Stable, no new issues reported.
Objective Data
-
Labs:
Laboratory Results
11/11/24
06:00
WBC Pending
Hgb Pending
Hct Pending
Plt Count Pending
Sodium Pending
Potassium Pending
Chloride Pending
Carbon Dioxide Pending
BUN Pending
Creatinine Pending
Glucose Pending
Calcium Pending
Vital Signs:
Vital Signs
Temp Pulse Resp BP Pulse Ox
99.2 F 77 16 133/60 95
11/10/24 23:21 11/10/24 23:21 11/10/24 23:21 11/10/24 23:21 11/10/24 23:21
I&O
11/10/24 11/11/24 11/12/24
06:59 06:59 06:59
Intake Total 0 / 0 0 / 0
Output Total 200 / 200 100 / 100
Balance -200 / -200 -100 / -100
[2024-11-11] MEDS: FIRVANQ 125 MG TUBE (08:53)
[2024-11-11] MEDS: IMODIUM LIQUID 4 MG TUBE (08:53)
[2024-11-11] MEDS: ELIQUIS 5 MG TUBE (08:54)
[2024-11-11] MEDS: CARAFATE SUSPENSION 1 GM TUBE (08:54)
[2024-11-11] MEDS: PROTONIX IV 40 MG IV (08:54)
[2024-11-11] MEDS: METAMUCIL, KONSYL 1 PACKET TUBE (08:54)
[2024-11-11] MEDS: NSS (PRESERVATIVE FREE) 10 ML IV (08:54)
[2024-11-11] MEDS: HYDROPHOR 1 APPLIC TOPICAL (08:57)
[2024-11-11] MEDS: DAKIN'S SOLUTION 0.125% 1/4 STRENGTH 473 ML TOPICAL (08:58)
--- NOTE | 2024-11-11 09:05 | W.PN.ID1 ---
Addendum entered and electronically signed by Chela Montague MD 11/11/24 12:33:
Per Dr. Colon, pt ready for discharge. Stool is more formed.
Recommendation:
At time of discharge, transition meropenem to Augmentin 500mg tube q24h (14:00) through 11/13.
Continue C. diff prophylaxis po vancomycin to 125mg daily through 11/18.
Addendum entered and electronically signed by Chela Montague MD 11/11/24 12:18:
I saw and evaluated the patient. I reviewed the resident�s note and agree with findings and plan as documented in the resident�s note.
# Sacral wounds deterioration due to stool contamination
# Leukocytosis resolved
# s/p Upper GI bleed with blood loss anemia
# Diarrhea- resolved. Now with frequent loose stools
# CoNS bacteremia (1 of 2 sets) = contaminant
# Recent h/o C. difficile August 2024
# ESRD on HD via HD cath
# CVA, paraplegia, bed bound, PEG on tube feed
# Recent hx of C. diff
- Too high risk for diverting colostomy per Colorectal.
- To maximize medical management, bulk up stool
GI - increased Imodium to bid, on soluble fiber
On probiotic.
- Continue short course meropenem 1g IV q24h (d3 of 5) through 11/13, to treat early infected wounds and reduce bioburden.
- Continue C. diff prophylaxis po vancomycin to 125mg daily through 11/18.
d/w Dr. Colon
ID will sign off.
Original Note:
Date of Service
Date of Service: November 11, 2024
No new complaints
Today's Communication
Continue meropenem day 3/5 and ppx po Vanco.
Assessment / Plan
# Sacral wounds deterioration due to stool contamination
# Leukocytosis resolved
# s/p Upper GI bleed with blood loss anemia
# Diarrhea- resolved. Now with frequent loose stools. FMS out since 11/10/24
# CoNS bacteremia (1 of 2 sets) = contaminant
# Recent h/o C. difficile August 2024
# ESRD on HD via HD cath
# CVA, paraplegia, bed bound, PEG on tube feed
- Too high risk for diverting colostomy per Colorectal.
- To maximize medical management, bulk up stool
- GI - increased Imodium to bid, on soluble fiber
- added probiotic
- Continue short course meropenem 1g IV q24h (d3 of 5-7) to treat infected wounds and reduce bioburden.
- C. dif Ag positive, toxin negative suggestive colonization
- Conitnue po vancomycin to 125mg daily, C. diff prophylaxis while on systemic abx.
-trend wbc
Chief Complaint
-: Leukocytosis
Subjective / Review of Systems
Review of Systems: No Fever, No Chills, No Headache, No Sputum Production, No Nausea, No Vomiting, Diarrhea and No Dysuria
Vital Signs / Physical Exam
Vital Signs
Vital Signs
Temp Pulse Resp BP Pulse Ox
97.8 F 72 16 133/62 99
11/11/24 07:15 11/11/24 07:15 11/11/24 07:15 11/11/24 07:15 11/11/24 07:15
Physical Exam
Constitutional: Chronically Ill
Cardiovascular: Regular Rate
Pulmonary: Clear
Gastrointestinal: Soft and Non Tender
Genito-Urinary: [place]
Skin: Warm
Wound: Other
Neurological: Awake
Psychological: Calm
Lines: HD Cath
Objective Data
Lab Data
PT 16.5 Sec (11.4-14.6) H 11/02/24 05:44
INR 1.30 11/02/24 05:44
APTT 36.7 Sec (23.4-35.0) H 11/02/24 05:44
Estimated Creat Clear 27 ml/min 11/10/24 06:07
Total Bilirubin 0.4 mg/dl (0.2-1.3) 11/06/24 06:39
AST 16 U/L (17-59) L 11/06/24 06:39
ALT 18 U/L (0-50) 11/06/24 06:39
Alkaline Phosphatase 135 U/L (38-126) H 11/06/24 06:39
Most recent labs reviewed.
Micro Results:
11/02/24 10:13 Blood Culture - Final
Blood/Venous Coagulase neg. staphylococcus
Additional testing on request
Gram Stain - Final
11/03/24 11:21 Blood Culture - Final
Blood/Venous No Growth - Final Report
11/03/24 11:00 Blood Culture - Final
Blood/Venous No Growth - Final Report
11/02/24 11:31 Blood Culture - Final
Blood/Venous No Growth - Final Report
11/01/24 23:13 Salmonella/Shigella Culture - Final
Feces/Stool No Salmonella, Shigella, Aeromonas or Plesiomonas species
isolated.
Campylobacter Culture - Final
No Campylobacter species isolated.
Shiga Toxin Test - Final
No E. coli Shiga Toxin 1 or 2 detected.
Stool Leukocytes - Final
11/02/24 12:37 Urine Culture - Final
Urine NO GROWTH
11/02/24 07:41 MRSA Screen - Final
Nose No Methicillin Resistant Staphylococcus aureus isolated.
11/01/24 23:13 C. difficile GDH Antigen & Toxins - Final
Feces/Stool C. difficile antigen positive, toxin negative.
Clostridium difficile present, but toxin not detected.
Patient may be a carrier, colonized with nontoxinogenic
strain or the level of toxin in sample is below detection
limits. This information should be used in conjunction with
the patient's clinical history.
XR Abdomen 11/02/24: Grossly nonobstructive bowel gas pattern.
CXR 11/02/2024: Low lung volumes.
Left mid to lower lung thickened linear opacity most likely representing subsegmental atelectasis.
Abdomen/pelvis CT 11/02/2024: Limited evaluation of intestinal tract as a result of several factors including marked beam hardening artifact from the patient's bilateral upper extremities, motion artifact and lack of oral contrast opacification of
majority of large bowel. No intestinal obstruction or free air.
Some suspected mild thickening of nondilated loops of proximal to mid small bowel, nonspecific, could represent enteritis.
Markedly limited evaluation of the descending colon, sigmoid and rectum without oral contrast opacification and with some beam hardening artifact, some at least SUSPECTED WALL THICKENING SUCH COLITIS.
Lack of demonstrable renal excretion bilaterally compatible with ESRD and hemodialysis. Small bilateral low-attenuation renal lesions too small to characterize.
Hepatosplenomegaly.
Bilateral lower lobe subsegmental atelectasis, left greater than right, cannot exclude left lower lobe pneumonia, evaluation overall limited as a result of marked beam hardening artifact.
Cholelithiasis.
Cannot exclude small pericardial effusion, limited by beam hardening artifact.
Marked edematous changes widespread throughout the abdominal and pelvic wall.
Marked atrophy of the rectus abdominis musculature with mild relative left-sided 'bulging' of the intestinal tract.
[2024-11-11 09:31] LABS: Hematocrit 27.1 % (39.0-52.0); Hemoglobin 8.2 g/dL (13.0-18.0); Mean Corp Hgb Conc. 30.3 g/dL (33.0-37.0); Mean Corpuscular Volume 91.6 fL (80.0-94.0); Nucleated Red Blood Cells % 0 % (-); Platelet Count 229 10^3/uL (130-400); Red Cell Dist. Width 14.8 % (11.5-14.5)
[2024-11-11 11:23] LABS: Blood Urea Nitrogen 28 mg/dl (9-20); Calcium 8.5 mg/dl (8.4-10.2); Carbon Dioxide 31 mmol/L (22-30); Chloride 98 mmol/L (98-107); Estimated Creatinine Clearance 35 ml/min; Glucose 102 mg/dl (70-99); Potassium 4.3 mmol/L (3.5-5.1); Sodium 133 mmol/L (135-145); eGFR 31.91
--- NOTE | 2024-11-11 11:23 | W.PN.GI.CBS2 ---
Today's Communication / Plan
-
reviewed with nursing stools have some form -- pt is likely at baseline
Abd X ray 11/10 no overflow issues
cont Metamucil and Imodium with continued evaluation need to stop
family has declined diversion to held with wound healing
intermediate internal rectal device can lead to rectal ulceration and should be avoided intermediate - external pouch ok to use if needed
hbg stable 8.2
for OP follow then will need repeat EGD and peg change
cont PPI and carafate -- may need intermediate PPI with need for chronic sevelamer therapy
abx per ID with c-diff and also on meropenem
will sign off call if we can be of any assistance
Assessment / Plan
-
Jordon is a 59 year old man with a past medical history significant for CVA with residual paraplegia/aphasia, s/p trach (now removed), PEG tube placed in Mar 2023 (last changed January 2024), w/ h/o intraabdominal abscess with necrotizing infection
requiring multiple surgeries and removal of PEG placement (May 2023), afib (on Eliquis), NIDDM, CHF (unsure of last echo), ESRD on Dialysis MWFr (R IJ Permacath), hypertension who presented from [facility] with complaints of 2 episodes of blood
emesis and brown liquid stool in ED. During admission also noted with diarrhea with baseline 3-4 stool per day prior to admission with chronic tube feed. Looser stool complicated by sacral wound. family declined diversion ostomy with wound.
11/03/[address] Silvestre
- Normal esophagus.
- Erythematous mucosa in the gastric body, fundus, and antrum. Biopsied. Suspect this was the cause of the hematemesis and anemia.
- Normal examined duodenum.
#EGD with marked erythematous mucosa with contact bleeding with blood emesis on admission-- possible sevelamer related
#Limited Ct with possible enteritis/colitis
#chronic dysphagia with peg tube
#Anemia, multifactorial (Acute Blood Loss, CKD, probable AMBER)
#diarrhea
# sacral wound
# c-diff ag + tox neg
PLAN:
reviewed with nursing stools have some form -- pt is likely at baseline
Abd X ray 11/10 no overflow issues
cont Metamucil and Imodium with continued evaluation need to stop
family has declined diversion to held with wound healing
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
hbg stable 8.2
for OP follow then will need repeat EGD and peg change
cont PPI and carafate -- may need intermediate PPI with need for chronic sevelamer therapy
abx per ID with c-diff and also on meropenem
will sign off call if we can be of any assistance
Subjective
Subjective
Date of Service: November 11, 2024
2 stool 11/10 and one this am-- in review with nursing some form but typical stool with chronic tube feeds with baseline 3-4 stool daily prior to admission no blood, non verbal but does not appear to have abdominal pain
Objective
Data Reviewed
Laboratory Data:
Laboratory Results
11/11/24 09:02
Laboratory Results
PT 16.5 Sec (11.4-14.6) H 11/02/24 05:44
INR 1.30 11/02/24 05:44
APTT 36.7 Sec (23.4-35.0) H 11/02/24 05:44
Phosphorus 2.3 mg/dl (2.5-4.5) L 11/10/24 06:07
Magnesium 2.2 mg/dl (1.6-2.3) 11/09/24 06:20
Total Bilirubin 0.4 mg/dl (0.2-1.3) 11/06/24 06:39
AST 16 U/L (17-59) L 11/06/24 06:39
ALT 18 U/L (0-50) 11/06/24 06:39
Alkaline Phosphatase 135 U/L (38-126) H 11/06/24 06:39
Lipase 262 U/L (23-300) 11/01/24 23:13
Vital Signs and I&O:
Vital Signs
Temp Pulse Resp BP Pulse Ox
97.8 F 72 16 133/62 99
11/11/24 07:15 11/11/24 07:15 11/11/24 07:15 11/11/24 07:15 11/11/24 07:15
I&O
11/10/24 11/11/24 11/12/24
06:59 06:59 06:59
Intake Total 0 / 0 0 / 0
Output Total 200 / 200 100 / 100
Balance -200 / -200 -100 / -100
Physical Exam
Physical Exam
HEENT: Anicteric and Other (dry mouth )
Cardiology: Normal Sinus Rhythm
Pulmonary: Clear
GI: Soft, Non Distended, Non Tender and Other (peg with wean but functioning, large healed abdominal scar )
Extremities: No Edema
Neuro: Non Focal
[2024-11-11 12:29] LABS: Glucose - Point of Care 118 mg/dl (70-99)
--- NOTE | 2024-11-11 12:52 | CM ---
Patient discharge today
spoke with Key and updated-agreeable
reiterated to work with Gianna/RITA if she wants to transition him to another facility
spoke with Gianna at [facility] & updated [facility]
PLAN: return to [facility]
Report #: [phone] ask for 3rd floor nsg
Fax #: [phone]
transportation form on chart
[2024-11-11] MEDS: MERREM 1000 MG IV (13:03)
[2024-11-11] MEDS: STERILE WATER FOR INJECTION 20 ML IV (13:03)
--- NOTE | 2024-11-11 14:19 | W.DCSUMMARY ---
Discharge Summary
Discharge Data
Date of Admission: 11/02/24
Date of Discharge: 11/11/24
Discharge Plan
-
Patient Disposition: [facility]NF
Discharge Diagnosis/Procedures: #Hypophosphatemia
#ESRD on Hemodialysis
#Atelectasis
#Acute blood loss anemia secondary to gastrointestinal bleeding on anemia of chronic disease secondary to ESRD
#Erosive gastritis (no H. pylori on path)
#Diarrhea
#Chronic loose stool 3-4 per day
#History of recent C.diff
#Leukocytosis
#Bacteremia
#Sacral and ischial decubitus wounds; sacral wound appears to be a stage III, ischial wounds appear to be stage I or II
#Acute urinary retention
#Phimosis
#Difficult Wellington Catheter
#Mild hypokalemia
#Minimal ALP elevation
#Mild relative left-sided 'bulging' of the intestinal tract
#atrophy of the rectus abdominis musculature
#Dysphagia
#History of CVA with residual aphasia and paraplegia
#Nonverbal
#History of Trach -- previously removed
#Atrial Fibrillation
#Bilateral atelectasis secondary to bedbound status
#Asymptomatic cholelithiasis
#Hepatosplenomegaly
#Incidental phleboliths over the pelvis

CT Abdomen/Pelvis (as per radiologist's report):
'IMPRESSION:
Limited evaluation of intestinal tract as a result of several factors including marked beam hardening artifact from the patient's bilateral upper extremities, motion artifact and lack of oral contrast opacification of majority of large bowel. No
intestinal obstruction or free air.
Some suspected mild thickening of nondilated loops of proximal to mid small bowel, nonspecific, could represent enteritis.
Markedly limited evaluation of the descending colon, sigmoid and rectum without oral contrast opacification and with some beam hardening artifact, some at least SUSPECTED WALL THICKENING SUCH COLITIS.
Lack of demonstrable renal excretion bilaterally compatible with ESRD and hemodialysis. Small bilateral low-attenuation renal lesions too small to characterize.
Hepatosplenomegaly.
Bilateral lower lobe subsegmental atelectasis, left greater than right, cannot exclude left lower lobe pneumonia, evaluation overall limited as a result of marked beam hardening artifact.
Cholelithiasis.
Cannot exclude small pericardial effusion, limited by beam hardening artifact.
Marked edematous changes widespread throughout the abdominal and pelvic wall.
Marked atrophy of the rectus abdominis musculature with mild relative left-sided 'bulging' of the intestinal tract.'
Condition: Fair
Diet: Tube feeding
Additional Diets: Continue the same tube feeding regimen that was done in the hospitalization (please see below)
Blood Work: CBC, CMP, Phosphorus and Magnesium in 2 to 3 days
Activity Restrictions/Additional Instructions:
Continue the same tube feeding regimen that was done in the hospitalization: Nepro w/ Carb Steady and Prosource Supplement
Hospital Nurse can print out dietitian's tube feeding recommendations.
Consider repeat upper endoscopy in 1.75 months to check healing given the severity of the gastritis and the inability to see the stomach completely under the white coating (? tube feeds?)
Will need bulk loader follow-up in office in 3 weeks -- can either replace PEG tube then (not done on this admission due to severe gastritis) or at the EGD in 4 weeks
Avoid replacement of rectal tube as a rectal tube for prolonged period will also cause decubitus ulcers and wounds -- can use external pouch if needed
Need to avoid sacral and buttocks area wound contamination, especially from stools -- need to continue good wound care
Tamsulosin/Finasteride cannot be crushed for PEG tube - will need to be discharged from hospital on Wellington Catheter
Follow-up with urology outpatient
Wound Care Instructions
Sacrum: clean with Dakin's, skin prep to periwound, Dakin's moist gauze followed by dry dressing daily and prn drainage.
Buttocks: clean with Dakin's skin prep periwound, Exuderm thin change q other day or barrier cream bid if dressing not staying.
L ischium: clean with Dakin's silicone foam change daily and prn drainage.
moisturize legs and feet daily
Air mattress with turning schedule
Follow up at wound care center call for an appointment.
Referrals:
Abdoul Chang DO [Family Provider, Internal Medicine]
Santy Silvestre MD [Active, Gastroenterology]
Referral Note: call GI to arrange 3-4 week follow up. Will EGD with peg change in 8 weeks
Additional Discharge Medication Instructions: Continue C. diff prophylaxis with PO Vancomycin 125 mg daily through 11/18/24
Continue Augmentin 500 mg PEG tube Q24h (daily at 14:00) through 11/13/24
Continue Metamucil and Imodium with continued evaluation for need to stop depending on stool/bowel movement patterns (please contact outpatient gastroenterology office if you need assistance with this)
Prescriptions:
New
sucralfate 100 mg/mL Suspension
1 g feeding tube BID Qty: 1000 1RF
Culturelle Kids Probiotics 5 billion cell Powder In Packet
5,000 mmu cells feeding tube Q24H Qty: 50 0RF
vancomycin 50 mg/mL Recon Soln
125 mg feeding tube DAILY Qty: 80 0RF
Rx Instructions:
Continue through 11/18/24
loperamide 1 mg/7.5 mL Liquid
4 mg feeding tube BID Qty: 120 1RF
amoxicillin-pot clavulanate 500-125 mg tablet
1 tab feeding tube Q24H Qty: 2 0RF
Rx Instructions:
Continue through 11/13/24 and take at 14:00 everyday.
Metamucil Fiber (aspartame) 3.4 gram Powder In Packet
1 packet feeding tube DAILY Qty: 44 1RF
pantoprazole [address] for susp in packet
40 mg feeding tube BID Qty: 30 2RF
Continued
Eliquis 5 mg tablet
5 mg feeding tube BID
Held
sevelamer HCl 800 mg tablet
800 mg feeding tube TID
Hold Instructions: Resume on 11/25/24. Ask outpatient provider if and when to resume this medication.
allopurinol 100 mg tablet
100 mg feeding tube DAILY
Hold Instructions: Resume on 11/18/24. Discuss with outpatient provider if and when to resume this medication.
Discontinued
nystatin 100,000 unit/mL suspension
ondansetron HCl 8 mg tablet
8 mg feeding tube TID
hydralazine 25 mg tablet
25 mg feeding tube TID
Discharge Orders:
Discharge Patient (As Directed); Ordered 11/11/24
Ordered By: Brendan Colon
Discharge Date and Time
Print Language: ROMANIAN
[2024-11-11 15:30] VITALS: BP 155/68
--- NOTE | 2024-11-11 16:04 | W.PN.NEPH.PH ---
Today's Communication / Plan
-
ok for d/c
Assessment/Plan
-
IMP:
Acute blood loss anemia 2/2 GIB on anemia of chronic disease 2/2 ESRD
Diarrhea
Hx of recent C.diff
Leukocytosis
ESRD on HD-MWF [facility]
left UE AVF
right chest wall catheter
Mild hypokalemia
Dysphagia on PEG
Hx of CVA with residual aphasia and paraplegia
Urine retention
NIDDM
Plan:
hemodynamically stable
tolerating TF< improving diarrhea per report
stable hb
griffiths was placed this admit for retention
for d/c today
-
-
Date of Service: November 11, 2024
CC / HPI / ROS
-
Chief Complaint:
ESRD
History of Present Illness:
ESRD MWF
toelrated HD yesterday
hemodynamically stable
Anemia stable hb 8.2
Review of Systems:
no fever
Griffiths but oliguric
non verbal baseline
Labs
-
Labs:
WBC 10.5 10^3/uL (4.8-10.8) 11/11/24 09:02
RBC 2.96 10^6/uL (4.70-6.10) L 11/11/24 09:02
Hgb 8.2 g/dL (13.0-18.0) L 11/11/24 09:02
Hct 27.1 % (39.0-52.0) L 11/11/24 09:02
Plt Count 229 10^3/uL (130-400) 11/11/24 09:02
Sodium 133 mmol/L (135-145) L 11/11/24 09:02
Potassium 4.3 mmol/L (3.5-5.1) 11/11/24 09:02
Chloride 98 mmol/L (98-107) 11/11/24 09:02
Carbon Dioxide 31 mmol/L (22-30) H 11/11/24 09:02
BUN 28 mg/dl (9-20) H 11/11/24 09:02
Creatinine 2.3 mg/dL (0.7-1.3) H 11/11/24 09:02
eGFR 31.91 11/11/24 09:02
Glucose 102 mg/dl (70-99) H 11/11/24 09:02
Calcium 8.5 mg/dl (8.4-10.2) 11/11/24 09:02
Phosphorus 2.4 mg/dl (2.5-4.5) L 11/11/24 09:02
Albumin 2.6 g/dl (3.5-5.0) L 11/06/24 06:39
Physical Exam
-
Vital Signs:
Vital Signs
Temp Pulse Resp BP Pulse Ox
97.8 F 72 16 133/62 99
11/11/24 07:15 11/11/24 07:15 11/11/24 07:15 11/11/24 07:15 11/11/24 07:15
Cardiovascular:: Regular rate and rhythm
Respiratory:: Bilateral: Coarse
Lung Excursion:: Normal
Abdomen:: Nontender and Soft
Bowel Sounds:: Normal
Extremity Edema:: None: Bilateral:
Griffiths Catheter: Yes
== END 2024-11-11 17:58 | DRG 377 ==
LOC: 3 WEST ACU 00:52
PROVIDERS: Internal Medicine; Specialist; ADMITTING PHYSICIAN Internal Medicine; ATTENDING PHYSICIAN Hospitalist; CONSULT PHYSICIAN Internal Medicine Infectious Disease; CONSULT PHYSICIAN Specialist; CONSULT PHYSICIAN Surgery; EMERGENCY PHYSICIAN Student in an Organized Health Care Education/Training Program; FAMILY PHYSICIAN Internal Medicine; OTHER PHYSICIAN Internal Medicine; OTHER PHYSICIAN Internal Medicine Gastroenterology
PROC: 30233N1 Transfusion of Nonautologous Red Blood Cells into Peripheral Vein, Percutaneous Approach (ICD-10-PCS; 2024-11-02)
PROC: 5A1D70Z Performance of Urinary Filtration, Intermittent, Less than 6 Hours Per Day (ICD-10-PCS; 2024-11-03)
PROC: 0DB68ZX Excision of Stomach, Via Natural or Artificial Opening Endoscopic, Diagnostic (ICD-10-PCS; 2024-11-03)
DX: K29.71 Gastritis, unspecified, with bleeding (principal); L89.323 Pressure ulcer of left buttock, stage 3; N18.6 End stage renal disease; J98.11 Atelectasis; D62 Acute posthemorrhagic anemia; A04.72 Enterocolitis due to Clostridium difficile, not specified as recurrent; R78.81 Bacteremia; G82.20 Paraplegia, unspecified; I13.2 Hypertensive heart and chronic kidney disease with heart failure and with stage 5 chronic kidney disease, or end stage renal disease; D68.32 Hemorrhagic disorder due to extrinsic circulating anticoagulants; Z99.2 Dependence on renal dialysis; E83.39 Other disorders of phosphorus metabolism; E11.22 Type 2 diabetes mellitus with diabetic chronic kidney disease; K92.0 Hematemesis; D63.1 Anemia in chronic kidney disease; R33.9 Retention of urine, unspecified; N47.1 Phimosis; E87.6 Hypokalemia; I69.320 Aphasia following cerebral infarction; I69.365 Other paralytic syndrome following cerebral infarction, bilateral; I48.91 Unspecified atrial fibrillation; I87.8 Other specified disorders of veins; K80.20 Calculus of gallbladder without cholecystitis without obstruction; D50.9 Iron deficiency anemia, unspecified; Z93.1 Gastrostomy status; Z79.01 Long term (current) use of anticoagulants; K76.9 Liver disease, unspecified; I69.391 Dysphagia following cerebral infarction; I50.9 Heart failure, unspecified; J44.9 Chronic obstructive pulmonary disease, unspecified; Z74.01 Bed confinement status; Z79.899 Other long term (current) drug therapy
CPT/HCPCS: 71045; 74018; 74177; 80048; 80053; 81003; 81015; 82607; 82728; 82746; 82962; 83036; 83540; 83550; 83690; 83735; 84100; 85014; 85018; 85025; 85610; 85730; 86850; 86900; 86901; 86920; 87040; 87045; 87046; 87070; 87077; 87086; 87147; 87154; 87205; 87324; 87340; 87427; 87449; 88305; 88342; 89055; 92526; 92610; 93005; 96365; 96366; 96375; 99291; G0257; J2185; J2354; J7168; P9016; P9047; Q5106; Q9967

== ENCOUNTER 2024-11-22 19:17 | Inpatient (IN) | payer OTHER, SELFPAY ==
[2024-11-22] VITALS (25 sets, daily range): BP systolic 82–133; BP diastolic 44–97
--- NOTE | 2024-11-22 14:33 | ED.GENMED ---
History of Present Illness
General
Chief Complaint: Vomiting Blood
Source: ambulance crew and previous hospital records
Time Seen by Provider: 11/22/24 14:27
History of Present Illness
History of Present Illness:
59-year-old male who is nonverbal secondary to previous CVA presents to the emergency room by ambulance after having bloody vomit at his group home, [facility]. Patient has a complicated past medical history including end-stage renal disease
requiring hemodialysis, CVA, A-fib on Eliquis. He was actually discharged from [facility] 11 days ago after an admission for very similar circumstances. On arrival here the patient is noted to have a large amount of brown diarrhea about his back.
This appears to have been a chronic issue based on notes from his recent hospitalization. He has a feeding tube in place. Patient is nonverbal and is unable to provide any history. Previous hospital notes also indicate a stage III sacral decubiti
as well as a stage II ischial decubiti.
Phy Exam
Physical Exam
Physical Exam:
General: Awake, nonverbal, does not follow commands
Vitals: Afebrile, mildly hypotensive
Head: Atraumatic
Eyes: Pupils equal, EOMI
Throat: Airway intact, no exudates, dry mucosa
Neck: Trachea midline
Lungs: Clear and equal b/l
Heart: Regular rate, no murmurs
Abd: Soft, feeding tube in place no apparent tenderness to palpation, No pulsatile mass
Rectal: Brown diarrhea heme-negative
Neuro: Apparent right hemiplegia with right arm contracture
Skin: Warm, dry, no rash
Extremities: pulses equal b/l, no edema
Course
Orders/Labs/Results
Orders:
Orders
11/22/24 14:27
Type+Screen Urgent
Electrocardiogram (*1) Stat
Reason for Study: Other
Other Reason for Exam: GI Bleed
Cardiac Monitoring- Treatment ONCE
EKG- Treatment ONCE
IV Insert/Care/Rem.- Treatment PRN
CR Chest Portable - 1 View Urgent
Comment:
Reason For Exam: productive cough
Reason Study Needs to be Portable: Patient Unstable
11/22/24 14:28
0.9% Sodium Chloride 500 ml [Nss] 500 ml IV BOLUS
Pantoprazole [Protonix IV] 80 mg IV NOW STA
11/22/24 15:00
Blood Culture Q30M
PHILL Source: Blood/Venous
Specimen Description:
11/22/24 15:29
Blood Culture Q30M
PHILL Source: Blood/Venous
Specimen Description:
11/22/24 15:30
Complete Blood Count/With Diff Urgent
Comprehensive Metabolic Panel Urgent
STOOL [C difficile Antigen & Toxins] Urgent
PHILL Source: Feces/Stool
Specimen Description:
Date Specimen was Collected: 11/22/24
Time Specimen was Collected: 14:40
Stool Culture Urgent
PHILL Source: Feces/Stool
Specimen Description:
Date Specimen was Collected: 11/22/24
Time Specimen was Collected: 14:40
11/22/24 15:52
DIETARY IP CONSULT Routine
Reason for Consult: tube feeding
Speech Screening from David Routine
11/22/24 17:07
Pantoprazole [Protonix IV] 80 mg .ROUTE .STK-MED ONE
11/22/24 18:11
CDIFF [C difficile Antigen & Toxins] Urgent
PHILL Source: Feces/Stool
Specimen Description:
11/22/24 18:17
INFECTIOUS DISEASE CONSULT Routine
Consulting Provider: Chela Montague
Was physician already notified: Yes
Reason for consult: watery diarrhea recent cdiff
NEPHROLOGY CONSULT Routine
Consulting Provider: Mitch Samayoa V.
Was physician already notified: Yes
Reason for consult: cdiff esrd mowefr, hypotension
11/22/24 18:18
Admit/Transfer Patient As Directed
Co-Sign Provider:
Level of Care: Inpatient admission
Assign to:: IMU- Intermediate Care
Physician / Group: salas vanessa
Diagnosis: diarrhea conc cdiff, hypotension/hypovolmeia
Reason for Hospitalization: diarrhea conc cdiff, hypotension/hypovolmeia
Expected length of stay greater than two midnights?: Yes
ELOS- Estimated Length of Stay in days: 5
I certify the patient meets the requirements for IP care: Yes
Code Status As Directed
Resuscitation Status: Full Code
11/22/24 18:23
PRN Pain Medication Management As Directed
May give lesser potent ordered pain med per pt: Yes
preference::
Protocol:: Medication orders for pain may be administered in a
manner that supports deferring to patient preference
when the pt is:
- Requesting an ordered lesser potent pain medication.
Least to most potent pain medications are defined
as: acetaminophen < NSAID < tramadol < opioids
(morphine, oxycodone, hydromorphone).
- Requesting a lesser dose of the same medication IF
ORDERED.
- Requesting a less intrusive route of administration
if both routes are prescribed by the provider (PO <
IV).
11/22/24 18:24
Precautions As Directed
Type of Precautions: Contact
Comment: poss cdiff
11/22/24 20:47
Acetaminophen [Tylenol] 650 mg TUBE Q6HPRN PRN MILD PAIN
Apixaban [Eliquis] 5 mg TUBE BID
Lorazepam [Ativan] 0.5 mg TUBE BIDPRN PRN AXNIETY
Sucralfate Suspension [Carafate Suspension] 1 gm TUBE BID
Tramadol HCl [Ultram] 50 mg TUBE BID
11/22/24 20:47
VTE Contraindication Routine
VTE Mechanical Device Contraindication: Medical Contraindication
Pharmocologic Contraindication: Medical Contraindication
Comment: jacquieharini guerrero
Activity As Directed
Activity Level: Bedrest
Intake/ Output As Directed
Frequency: Per unit guidelines
Vital Signs As Directed
Frequency: Per unit guidelines
11/23/24 Breakfast
NPO
Allow oral meds: No
Allow clear liquids: No
Complete Blood Count/No Diff IN AM
Complete Blood Count/With Diff IN AM
Magnesium IN AM
11/23/24 08:00
Acetaminophen [Tylenol] 650 mg TUBE DAILY
Allopurinol [Zyloprim] 100 mg TUBE DAILY
Lansoprazole [Prevacid] 30 mg TUBE BID
Sertraline HCl [Zoloft] 25 mg TUBE DAILY
11/24/24 06:00
Complete Blood Count/No Diff IN AM
Complete Blood Count/With Diff IN AM
11/25/24 06:00
Complete Blood Count/No Diff IN AM
Complete Blood Count/With Diff IN AM
11/26/24 06:00
Complete Blood Count/No Diff IN AM
Complete Blood Count/With Diff IN AM
Abnormal Lab Results
11/22/24
15:30
WBC 13.3 H 10^3/uL
(4.8-10.8)
RBC 3.19 L 10^6/uL
(4.70-6.10)
Hgb 8.8 L g/dL
(13.0-18.0)
Hct 28.2 L %
(39.0-52.0)
MCHC 31.2 L g/dL
(33.0-37.0)
RDW 14.6 H %
(11.5-14.5)
Plt Count 443 H 10^3/uL
(130-400)
Abs Immat Gran (auto) 0.3 H 10^3/uL
(0-0.05)
Absolute Neuts (auto) 10.7 H 10^3/uL
(1.4-6.5)
Absolute Monos (auto) 0.7 H 10^3/uL
(0.1-0.6)
Immature Gran % 1.9 H %
(0-0.5)
Neutrophils % 80.3 H %
(42.2-75.2)
Lymphocytes % 9.3 L %
(20.5-51.1)
Sodium 131 L mmol/L
(135-145)
Chloride 95 L mmol/L
(98-107)
Carbon Dioxide 31 H mmol/L
(22-30)
BUN 39 H mg/dl
(9-20)
Creatinine 2.2 H mg/dL
(0.7-1.3)
Glucose 111 H mg/dl
(70-99)
Albumin 3.0 L g/dl
(3.5-5.0)
11/22/24 15:30
11/22/24 15:30
Vital Signs
Initial and Last Documented VS:
Initial Vital Signs
Temp Pulse Resp BP Pulse Ox
98.7 F 81 14 82/46 97
11/22/24 14:19 11/22/24 14:19 11/22/24 14:19 11/22/24 14:19 11/22/24 14:19
Last Documented Vital Signs
Temp Pulse Resp BP Pulse Ox
98.7 F 71 14 129/60 99
11/22/24 14:19 11/22/24 22:00 11/22/24 22:00 11/22/24 22:00 11/22/24 20:53
MDM/Problems Addressed
Differential Diagnosis Includes:
Upper GI bleed, gastritis, gastroparesis
MDM/Problems Addressed:
Patient presents after vomiting which could be blood in his group home. We again irrigated his feeding tube and does appear to have some coffee-ground material. Protonix administered. Patient has a harsh cough however chest x-ray does not show
anything acute. Labs are as expected given his end-stage renal disease. Type and screen sent. Patient be hospitalized for close observation given his history of recent severe gastritis and oral anticoagulant use.
Chronic conditions affecting care: Kidney disease
*Radiology
Radiology exam reviewed: radiology read reviewed
*Pulse Oximetry
SaO2: 99
Oxygen Mode of Delivery: Room air
Patient hypoxic: no
*EKG
Interpretation: normal
Heart Rate: 74
Rate: normal
Rhythm: sinus
[place]: normal axis
Interval: normal interval
QRS Pattern: normal QRS
Ischemia: no ischemia
*Hardness Tester Interpretation
Rate: normal
Interpretation: normal
Rhythm: sinus
*Critical Care Note
Total Time (30-74mins, 75-104mins- exclusive of procedures): 33 min
comment:
Critical care statement: A total of 33 minutes of critical care time was provided for this patient. This includes management of unstable vital signs, evaluation of the patient at bedside, reviewing the patient's pertinent medical records, discussion
with consultants, review of old EKGs and review of pertinent medical records. This time with separate from time utilized to perform the aforementioned documented procedures
ED Attending Note
-
Portions of this chart may have been created with voice recognition software.� Occasional wrong word or��sound alike� substitutions may have occurred due to the inherent limitations of voice recognition software.
Discharge Plan
Departure
Patient Disposition: Admit
Date of Disposition: 11/22/24
Time of Disposition: 16:20
Presentation/result/management discussed w/ accepting MD/DO: Hospitalist
Condition: Fair
Discharge Problem:
Acute GI bleeding, ESRD (end stage renal disease)
Interventions
Interventions:
*Risk Screen - Suicide Last Done: 11/22/24 14:19
*General Assessment Last Done: 11/22/24 14:19
*Neglect/Abuse Screening Last Done: 11/22/24 14:19
*ED- Fall Risk Assessment Last Done: 11/22/24 14:19
*ED COVID-19 Vaccine History Last Done: 11/22/24 14:19
*Nursing Disposition Last Done: 11/22/24 20:52
JP-Nudsgu-Hjgznzcdpp Assessment Last Done: 11/22/24 14:27
ED- Cardiac Assessment Last Done: 11/22/24 14:27
ED- Pulmonary Assessment Last Done: 11/22/24 14:27
Discharge Date and Time
Discharge Date/Time: 11/22/24 20:53
[2024-11-22 16:03] LABS: ALT (SGPT) 16 U/L (0-50); AST (SGOT) 27 U/L (17-59); Albumin 3.0 g/dl (3.5-5.0); Alkaline Phosphatase 121 U/L (38-126); Blood Urea Nitrogen 39 mg/dl (9-20); Calcium 8.4 mg/dl (8.4-10.2); Carbon Dioxide 31 mmol/L (22-30); Chloride 95 mmol/L (98-107); Glucose 111 mg/dl (70-99); Potassium 4.2 mmol/L (3.5-5.1); Sodium 131 mmol/L (135-145); Total Protein 7.1 g/dl (6.3-8.2); eGFR 33.66
[2024-11-22 16:05] LABS: Hematocrit 28.2 % (39.0-52.0); Hemoglobin 8.8 g/dL (13.0-18.0); Mean Corp Hgb Conc. 31.2 g/dL (33.0-37.0); Mean Corpuscular Volume 88.4 fL (80.0-94.0); Nucleated Red Blood Cells % 0 % (-); Platelet Count 443 10^3/uL (130-400); Red Cell Dist. Width 14.6 % (11.5-14.5)
[2024-11-22] MEDS: PROTONIX IV 80 MG IV (17:15)
[2024-11-22] MEDS: NSS 500 IV (17:16)
--- NOTE | 2024-11-22 17:19 | HPS.HSE ---
Addendum entered and electronically signed by Nata Tejada MD 11/22/24 21:02:
This is an addendum to H&P written by Nunu Roth on 11/22/24. �Patient seen and examined independently with ELECTRIC TRAIN DRIVER.
59-year-old male past medical history of CVA, paraplegia, dysphagia with PEG tube, history of tracheostomy status post removal, ESRD on dialysis Friday, sick on Friday, chronic iron deficiency anemia, history of GI bleeding/erosive gastritis this
month, paroxysmal atrial fibrillation, cholelithiasis, chronic sacral/ischial wounds presenting with vomiting blood at [facility].�
He was recently admitted from 11/02 to 11/11 for GI bleeding requiring 2 units of blood transfusion. �Had EGD which was obscured by tube feeds but suspected erosive gastritis. �He was treated with Protonix and Carafate. �PEG tube recommend to be
changed in 3 to 4 weeks. �Also had urinary retention Wellington catheter difficulty placed due to phimosis. �He was C. difficile antigen positive, toxin negative and treated with prophylactic oral vancomycin for chronic diarrhea.
Vital signs show blood pressure of 82/46. �He was covered with brown watery diarrhea up to his back. ER reportedly notes blood aspirated from PEG tube although no evidence currently.��
Labs show leukocytosis. �Hemoglobin of 8.8 from 8.2 on discharge. �Heme test negative.
Patient with� possible hematemesis and bleeding from PEG tube. �Patient here with SIRS positive, volume depletion from diarrhea unclear if this is due to persistent C. difficile. �Check stool culture, C. difficile. �No evidence of GI bleeding at
this time on examination. �Given IV fluids.� GI and ID consulted. �Wound care consulted. �Nephrology consulted for routine dialysis.
Check chest x-ray due to congestion.�
Original Note:
Family Physician
-
Family Physician: NOT KNOW UNKNOWN - PT DOES
Chief Complaint
-
Reported bloody vomit today
History of Present Illness
59-year-old male returns from [facility] after bloody vomit today. It appears he is on Eliquis due to history of A-fib he had large amount of brown diarrhea on arrival along with his chronic sacral and ischial wounds. Patient is
nonverbal due to prior history of CVA. There is no reported fever, rash, palpitations, cough, shortness of breath, diaphoresis.
He was recently admitted 11/02 - 11/11/2024 from [facility] for GI bleed requiring 2 units of PRBCs due to erosive gastritis/anemia of chronic disease secondary to ESRD he also had loose stools at that time was C. difficile positive toxin
negative however was put on vancomycin 125 mg daily for prophylaxis as he needed Augmentin for sacral and ischial stage I-II wounds. During his admission he had urinary retention phimosis was a difficult Wellington catheter insertion was to remain in
place it was recommended he follow-up Endo in 1.75 months as there was inability to see his stomach due to tube feeds also there was consideration of PEG tube placement in 3 to 4 weeks per GI recommendation. Patient has past medical history of CVA,
bedbound status, paraplegia, nonverbal, dysphagia requiring PEG tube, hepatomegaly, ESRD on dialysis Friday, chronic iron deficiency anemia, recent GI bleed/erosive gastritis November 2024, paroxysmal A-fib, cholelithiasis, alk
phos elevation.
Medical History
Past Medical History
Past Medical History: Reports Other
Additional Past Medical History:
CVA, bedbound status
nonverbal
dysphagia requiring PEG tube
History of trach with removal
ESRD on dialysis Friday
chronic iron deficiency anemia
recent GI bleed/erosive gastritis November 2024
paroxysmal A-fib
cholelithiasis
alk phos elevation.
Past Surgical History: Reports Other
Additional Past Surgical History:
PEG tube
Exploratory lap
AV fistula
Social History
Tobacco: Non-smoker
Alcohol: None
Drug: None
Living: Long-Term ([facility])
Family History
Family History: Not pertinent
Allergies / Home Medications
Allergies reflects when Allergies were last updated in [facility].
Home Medications with original date entered in [facility]
Allergy/Medication List:
Allergies
Allergy/AdvReac Type Severity Reaction Status Date / Time
No Known Allergies Allergy Verified 11/01/24 22:20
Home Medications
apixaban 5 mg tablet (Eliquis) 5 mg feeding tube BID Blood Clot Prevention/Tx 11/02/24
pantoprazole 40 mg granules delayed-release for susp in packet 40 mg feeding tube BID #30 ea 11/11/24
psyllium husk 3.4 gram oral powder packet (Metamucil Fiber (aspartame)) 1 packet feeding tube DAILY #44 ea 11/11/24
sucralfate 100 mg/mL oral suspension 1 g (10 mL) feeding tube BID #1,000 mL 11/11/24
acetaminophen 325 mg tablet (Tylenol) 650 mg feeding tube DAILY 11/22/24
acetaminophen 325 mg tablet (Tylenol) 650 mg feeding tube Q6HPRN PRN MILD PAIN 11/22/24
allopurinol 100 mg tablet 100 mg feeding tube DAILY 11/22/24
bisacodyl 10 mg rectal suppository (Dulcolax (bisacodyl)) 10 mg NM DAILYPRN PRN CONSTIAPTION 11/22/24
loperamide 2 mg capsule 2 mg feeding tube Q8HPRN PRN DIARRHEA 11/22/24
loperamide 2 mg capsule 4 mg feeding tube BID 11/22/24
lorazepam 0.5 mg tablet 0.5 mg feeding tube BIDPRN PRN AXNIETY 11/22/24
nystatin 100,000 unit/mL oral suspension 10 ml buccal TID 11/22/24
sertraline 25 mg tablet 25 mg feeding tube DAILY 11/22/24
sevelamer carbonate 800 mg tablet 800 mg feeding tube AC 11/22/24
sorbitol 70 % solution 30 ml PO DAILYPRN PRN CONSTIPATION/ VIA PEG TUBE 11/22/24
tramadol 50 mg tablet 50 mg feeding tube BID 11/22/24
Review of Systems
-
History Source: Long-Term ([facility]) and Other (Patient nonverbal does attempt to squeeze eyes for yes but inconsistent)
A 12 point ROS was completed and negative except as noted: Yes
Constitutional: Denies Fever or Chills
EENT: Reports Other (Dry oral mucosa with white tongue patient does not tolerate anything by mouth has PEG tube)
Respiratory: Denies Cough or Trouble Breathing
Cardiac: Denies Diaphoresis
Abdomen/GI: Reports Abdominal Pain (Patient closes eyes for yes with palpation over left upper quadrant right upper quadrant left lower quadrant), Vomiting (Blood per long-term however no blood appreciated in patient's mouth or G-tube) and
Diarrhea (Reported watery diarrhea on presentation)
: Reports Wellington
Musculoskeletal: Denies Joint Pain
Skin: Denies Rash
Physical Exam
Vital Signs
Vital Signs
Temp Pulse Resp BP Pulse Ox
98.7 F 73 0 103/58 99
11/22/24 14:19 11/22/24 17:00 11/22/24 16:45 11/22/24 17:00 11/22/24 14:27
Physical Exam
GI: Other (Blood per long-term however no blood appreciated in patient's mouth or G-tube)
Laboratory Results
-
11/22/24 15:30
11/22/24 15:30
Laboratory Results
Total Bilirubin 0.5 mg/dl (0.2-1.3) 11/22/24 15:30
AST 27 U/L (17-59) 11/22/24 15:30
ALT 16 U/L (0-50) 11/22/24 15:30
Alkaline Phosphatase 121 U/L (38-126) 11/22/24 15:30
Impression/Plan
-
Impression/plan:
Admit to TELE
#Acute hypotension due to volume depletion from diarrhea
BP 99/55> 103/58
-post 1 L IV NSS
- Will monitor
# Acute on recent history of chronic diarrhea 3 to 4-day
#History of C. difficile PCR positive toxin negative
-Was on vancomycin 125 mg daily through 11/18/2024
- Stool culture was sent by ER due to brown watery diarrhea today heme neg
-Repeat C. difficile
- Consult I/d
#Acute on chronic leukocytosis
WBC 13.3 > 10.5 on 11/11/2024
Blood, stool culture
#Chronic bedbound status causing decubitus wounds
#Sacral/ischial decub wounds stage II, ischial wound stage I or II close proximity rectal area
-Had eval by colorectal surgery for possible colostomy bag but too high risk for surgery
-Avoid rectal tubes as this will worsen decub ulcers
-Patient was on C. difficile prophylaxis with oral vancomycin 125 daily through 11/18/2024
-Treated with Augmentin 500 mg via G-tube every 24 hours through 11/13/2024
-Consult wound care
#Recent severe erosive gastritis(no H. pylori on recent path)
#Recent GI bleed secondary to blood loss anemia and anemia chronic disease secondary to ESRD-received 2 units of PRBCs on recent admission
Reportedly vomited blood at [facility]
Was seen by GI recently with recommended upper Endo 1.75 months to check healing severity of gastritis and inability to see stomach
under white coating question tube feeds
Will need PEG tube replacement 3 to 4 weeks-per prior GI recommendations
-Hgb 8.8> 8.2 on 11/11/2024
HEMe neg brown
- Type and screen
-Hold sucralfate 1 g twice daily via G-tube
-IV Protonix 80 mg given in ER will continue Protonix 40 mg twice daily via G-tube
- N.p.o.
#History of A-fib on Eliquis
-cont Eliquis
#Recent acute Urinary retention(2liters) required Wellington catheter on discharge
-Patient has difficult Wellington catheter insertion/history of phimosis
-Unable to use Flomax or finasteride as they cannot be crushed and PEG tube
#ESRD on HD Friday via right IJ permacath
#New 1-month-old old left upper extremity AV fistula
Creat 2.2
-Consult nephro
- Hold sevelamer 800 mg before meals due to GI bleed/n.p.o.
-
#History of CVA with residual aphasia, dysphagia paraplegia
#Patient nonverbal due to CVA
#History of dysphagia due to CVA on current PEG tube
- Hold tube feeds due to GI bleed/n.p.o.
#History of trach with removal
#
#Anxiety history
Continue Zoloft 25 mg via G-tube
<Continue lorazepam 0.5 mg twice daily as needed anxiety hold SBP<110
Other PMH:
History bilateral atelectasis secondary to bedbound status
History of asymptomatic cholelithiasis
History of hepatosplenomegaly
History of minimal alk phos elevation�resolved
[2024-11-22] MEDS: ELIQUIS 5 MG TUBE (21:08)
[2024-11-22] MEDS: ULTRAM 50 MG TUBE (21:08)
[2024-11-22] MEDS: CARAFATE SUSPENSION 1 GM TUBE (21:08)
--- NOTE | 2024-11-22 21:42 | PTCARENOTE ---
Rec'd pt from ED RNs. Pt NSR on CM, 99% on RA. Inc of liquid stool. Severe wounds present in sacrum/ischium area. Difficult to maintain hygiene care in this area d/t frequent liquid stools. Hygiene care performed upon arrival to unit. Pt nonverbal.
Wellington present on arrival. Urine cloudy, yellow. Bed alarm in place for pt safety. Care ongoing.
[2024-11-23] VITALS (12 sets, daily range): BP systolic 90–153; BP diastolic 49–73; BMI 28.5; BMI 28.8
[2024-11-23 06:12] LABS: Hematocrit 22.0 % (39.0-52.0); Hemoglobin 6.8 g/dL (13.0-18.0); Mean Corp Hgb Conc. 30.9 g/dL (33.0-37.0); Mean Corpuscular Volume 85.6 fL (80.0-94.0); Nucleated Red Blood Cells % 0 % (-); Platelet Count 383 10^3/uL (130-400); Red Cell Dist. Width 14.8 % (11.5-14.5)
[2024-11-23 06:16] LABS: Magnesium 2.4 mg/dl (1.6-2.3)
--- NOTE | 2024-11-23 06:48 | W.PN.UPDATE ---
Update Note
Progress Note Update
hemoglobin 6.8 this am from 8.6
RN reports no bleeding overnight.
consent obtained from Key Alex.
One unit prbc ordered
--- NOTE | 2024-11-23 07:01 | CON.GI ---
Addendum entered and electronically signed by Gaby Marroquin Do, MD 11/23/24 16:15:
I saw and examined the patient.
The EVAPORATOR SUPERVISOR's note was reviewed and I agree with the note.
Comment: Jordon is an 59yo M custodial resident with h/o paraplegia due to CVA s/p multiple PEGs last 05/2023 complicated by intra-abd abscess, ESRD on HD and recent Cdiff who was admitted for vomiting and worsening Hbg down to 6.8. He is not able
to provide history. Lavage of PEG with pink tinged fluid. He had recent admission 11/02-11/11 for similiar issues and EGD 11/03/24 with diffuse gastritis. Vitals stable exam chronically ill appearing, obese abd NTTP, RUQ with PEG tube minor erythema
surrounding. Labs reviewed Hbg 6.8 s/p 1 unit PRBC
Impression
- Positive blood cultures
- Acute on chronic anemia
Recent EGD 11/03 with diffuse gastritis
- Loose stools
- Recent h/o Cdiff
- PEG tube
- ESRD on HD
- Multiple decub ulcers around rectum
- Paraplegia
- CVA
- DM
- Non verbal
- HTN
- CHF
Recommendations
- Serial H/H
- C/w Protonix 40mg IV BID and carafate
- Hold eliquis for now
- Infectious workup per ID appreciate recommendations
- AXR without signficant fecal burden. Recommend CTAP with IV and oral contrast. Ok per renal
- He would be poor candidate for colonoscopy given chronic illness and difficulty prepping with multiple sacral decub
- Consider palliative care consult
Will follow with you
Original Note:
Consultation
-
Date/Time Consultation Requested: 11/22/24 2240
Date/Time Consultation Performed: 11/23/24 0800
Requesting Provider: PENG Del Valle
Performing Provider: PENG Casper, Gaby Bruce MD
Reason for Consultation: hematemesis
Medical History
Chief Complaint / HPI
Chief Complaint: Bloody emesis
History of Present Illness:
Pt is a 59 year old man with a past medical history significant for PAF on Eliquis, CVA with residual paraplegia/aphasia, s/p trach (now removed), PEG tube placed in Mar 2023 (last changed January 2024), w/ h/o intraabdominal abscess with
necrotizing infection requiring multiple surgeries with removal and replacement of PEG placement (May 2023), prior c-diff August 2024, cholelithiasis, NIDDM, CHF, ESRD on Dialysis, hypertension who presented with recent prolonged admission at
11/02- 11/11 with hematemesis with erythematous mucosa on contact on EGD, diarrhea with hx recent c-diff and adjustment of antidiarrheal medication, leukocytosis which resolved on discharged, urinary retention with griffiths in place with concern for
sacral wound and discussion of colonic diversion for wound management but family declined, anemia with 2 units transfused during admission. He now returns with hematemesis with hbg down to 6.8 requiring transfusion, concern for SIRS, volume
depletion with diarrhea. Pt with brown liquid stool after admission.
Pt is non verbal so limited subjective data on admission.
EGD: 11/03/24 protano - Normal esophagus - Erythematous mucosa in the gastric body, fundus, and antrum. Biopsied. Suspect this was the cause of the hematemesis and anemia- Normal examined duodenum.
Past Medical History
Past Medical History: Arrhythmias (PAF on Eliquis ), CHF, CVA, HTN, NIDDM, Renal Failure (on Dialysis) and Other (cholelithiasis, chronic sacral wound, prior c-diff august 2024)
Past Surgical History: Other ( h/o intraabdominal abscess with necrotizing infection requiring multiple surgeries with removal and replacement of PEG placement (May 2023),)
Social History
Tobacco: Non-Smoker
Alcohol: None
Drug: None
Personal:
Living: [facility]
Employment: Not Employed
Family History
Family History: Unable to Obtain
Allergies / Home Medications
Allergy/AdvReac Type Severity Reaction Status Date / Time
No Known Allergies Allergy Verified 11/01/24 22:20
�Medication �Instructions �Recorded
apixaban 5 mg tablet (Eliquis) 5 mg feeding tube BID Blood Clot 11/02/24
Prevention/Tx
pantoprazole 40 mg granules 40 mg feeding tube BID #30 ea 11/11/24
delayed-release for susp in packet
psyllium husk 3.4 gram oral powder 1 packet feeding tube DAILY #44 ea 11/11/24
packet (Metamucil Fiber
(aspartame))
sucralfate 100 mg/mL oral 1 g (10 mL) feeding tube BID 11/11/24
suspension #1,000 mL
acetaminophen 325 mg tablet 650 mg feeding tube DAILY 11/22/24
(Tylenol)
acetaminophen 325 mg tablet 650 mg feeding tube Q6HPRN PRN 11/22/24
(Tylenol) MILD PAIN
allopurinol 100 mg tablet 100 mg feeding tube DAILY 11/22/24
bisacodyl 10 mg rectal suppository 10 mg IN DAILYPRN PRN CONSTIAPTION 11/22/24
(Dulcolax (bisacodyl))
loperamide 2 mg capsule 2 mg feeding tube Q8HPRN PRN 11/22/24
DIARRHEA
loperamide 2 mg capsule 4 mg feeding tube BID 11/22/24
lorazepam 0.5 mg tablet 0.5 mg feeding tube BIDPRN PRN 11/22/24
AXNIETY
nystatin 100,000 unit/mL oral 10 ml buccal TID 11/22/24
suspension
sertraline 25 mg tablet 25 mg feeding tube DAILY 11/22/24
sevelamer carbonate 800 mg tablet 800 mg feeding tube AC 11/22/24
sorbitol 70 % solution 30 ml PO DAILYPRN PRN 11/22/24
CONSTIPATION/ VIA PEG TUBE
tramadol 50 mg tablet 50 mg feeding tube BID 11/22/24
Review of Systems
-
Unable to obtain full review of systems at this time due to: Patient Non Verbal
History Source: Other (reviewed with nursing staff, no family present)
Abdomen/GI: Reports Diarrhea and Other (per staff no further vomiting since admission to floor but noted diarrhea )
Hematologic/Lymphatic: Reports Bleeding
Vital Signs
Temp Pulse Resp BP Pulse Ox
98.6 F 74 12 139/62 97
11/23/24 03:00 11/23/24 06:00 11/23/24 06:00 11/23/24 06:00 11/23/24 06:00
Physical Exam
Exam
General: Other (eyes open occasional attempt at mouthing words but non vocal )
HEENT: Normocephalic and Anicteric
Respiratory: Clear
Cardiac: Regular Rhythm
GI: Soft, Non Distended and Other (large abdomen with large abdominal healed wound. Peg with wear with return of pink tinged liquid on irrigation.)
Rectal: Other (limited with large wound with dressing attempted with Dr. Bruce)
Musculoskeletal: No Clubbing and No Cyanosis
Skin: Warm and Dry
Neuro: Other (opens eyes but unable to communicate )
Psych: Calm
Results
WBC 16.5 10^3/uL (4.8-10.8) H 11/23/24 05:33
Hgb 6.8 g/dL (13.0-18.0) L* D 11/23/24 05:33
Hct 22.0 % (39.0-52.0) L 11/23/24 05:33
MCV 85.6 fL (80.0-94.0) 11/23/24 05:33
Plt Count 383 10^3/uL (130-400) 11/23/24 05:33
Absolute Neuts (auto) 12.8 10^3/uL (1.4-6.5) H 11/23/24 05:33
Sodium 131 mmol/L (135-145) L 11/22/24 15:30
Potassium 4.2 mmol/L (3.5-5.1) 11/22/24 15:30
Chloride 95 mmol/L (98-107) L 11/22/24 15:30
Carbon Dioxide 31 mmol/L (22-30) H 11/22/24 15:30
BUN 39 mg/dl (9-20) H 11/22/24 15:30
Creatinine 2.2 mg/dL (0.7-1.3) H 11/22/24 15:30
Calcium 8.4 mg/dl (8.4-10.2) 11/22/24 15:30
Total Bilirubin 0.5 mg/dl (0.2-1.3) 11/22/24 15:30
AST 27 U/L (17-59) 11/22/24 15:30
ALT 16 U/L (0-50) 11/22/24 15:30
Alkaline Phosphatase 121 U/L (38-126) 11/22/24 15:30
Diagnostic Image Results:
11/02/24 CT Abd/pel W Iv And Oral Contr
Limited evaluation of intestinal tract as a result of several factors including marked beam hardening artifact from the patient's bilateral upper extremities, motion artifact and lack of oral contrast opacification of majority of large bowel. No
intestinal obstruction or free air.
Some suspected mild thickening of nondilated loops of proximal to mid small bowel, nonspecific, could represent enteritis.
Markedly limited evaluation of the descending colon, sigmoid and rectum without oral contrast opacification and with some beam hardening artifact, some at least SUSPECTED WALL THICKENING SUCH COLITIS.
Lack of demonstrable renal excretion bilaterally compatible with ESRD and hemodialysis. Small bilateral low-attenuation renal lesions too small to characterize.
Hepatosplenomegaly.
Bilateral lower lobe subsegmental atelectasis, left greater than right, cannot exclude left lower lobe pneumonia, evaluation overall limited as a result of marked beam hardening artifact.
Cholelithiasis.
Cannot exclude small pericardial effusion, limited by beam hardening artifact.
Marked edematous changes widespread throughout the abdominal and pelvic wall.
Marked atrophy of the rectus abdominis musculature with mild relative left-sided 'bulging' of the intestinal tract.
11/10/24 abd X ray
IMPRESSION: Nonobstructive bowel gas pattern.
11/22/24 CXR-
No acute cardiopulmonary process.
Prior GI Procedures:
EGD: 11/03/24 [facility]
- Normal esophagus.
- Erythematous mucosa in the gastric body, fundus, and antrum.
Biopsied. Suspect this was the cause of the hematemesis and anemia.
- Normal examined duodenum.
Colonoscopy: unknown
Assessment / Plan
-
Pt is a 59 year old man with a past medical history significant for PAF on Eliquis, CVA with residual paraplegia/aphasia, s/p trach (now removed), PEG tube placed in Mar 2023 (last changed January 2024), w/ h/o intraabdominal abscess with
necrotizing infection requiring multiple surgeries with removal and replacement of PEG placement (May 2023), cholelithiasis, NIDDM, CHF, ESRD on Dialysis, hypertension who presented with recent prolonged admission at 11/02- 11/11 with hematemesis
with erythematous mucosa on contact on EGD, diarrhea with hx recent c-diff and adjustment of antidiarrheal medication, leukocytosis which resolved on discharged, urinary retention with griffiths in place with concern for sacral wound and discussion of
colonic diversion for wound management but family declined, anemia with 2 units transfused during admission. He now returns with hematemesis with hbg down to 6.8 requiring transfusion, concern for SIRS, volume depletion with diarrhea. Pt with
brown liquid stool after admission.
EGD: 11/03/24 [facility]ano - Normal esophagus - Erythematous mucosa in the gastric body, fundus, and antrum. Biopsied. Suspect this was the cause of the hematemesis and anemia- Normal examined duodenum.
-hematemesis - recurrent
- anemia with acute blood loss
-leukocytosis/SIRS on admission
-diarrhea
-recent CT with enteritis/colitis
-chronic sacral wound
-hx CVA with residual paraplegia/aphasia
-chronic peg due for change
other med problems:
-h/o intraabdominal abscess with necrotizing infection requiring multiple surgeries with removal and replacement of PEG placement (May 2023)
- cholelithiasis
-NIDDM
-CHF
- ESRD on Dialysis
- hypertension
PLAN:
etiology of bleeding related to continued gastritis(prior concern for sevelamer related), colitis/enteritis related as noted on prior CT, diarrhea with overflow and ? constipation vs other
peg lavage with pink tinged fluid( no recent meds given) --
Eliquis hold (Last dose 11/22 2099) as may need possible EGD/peg change -- reviewed with Dr. Colon
cont PPI BID(will hold Lansoprazole and add IV BID protonix) and cont Carafate BID
NPO
trend hbg transfuse as needed
will review with Dr. Bruce for repeating EGD and timing-- concern for overall health with procedures-- consider goals of care discussion
I reviewed with Dr. Colon
for diarrhea prior to admission pt was on loperamide 4mg BID, Metamucil daily, and additional Loperamide 2mg Q 8 hours PRN X- ray last admission with 11/10 with small to moderate stool burden -- will repeat to ensure no overflow constipation with
continued standing Imodium use
-
-
Thank you for consultation and allowing me to participate in the patient's care. Please call the environmental designer GI physician during the after hours with any questions or concerns.
--- NOTE | 2024-11-23 07:51 | W.CON.NEPH ---
Consultation
-
Date/Time Consultation Requested: 11/23/2024 7:15 AM
Date/Time Consultation Performed: 11/23/2024 7:50 AM
Requesting Provider: Dr. Bojorquez
Performing Provider: Dr. Samayoa
Reason for Consultation: ESRD
Medical History
-
Chief Complaint: ESRD
History of Present Illness:
59-year-old male with past medical history of stroke with subsequent paraplegia dysphagia with PEG tube history of tracheostomy status post removal with ESRD on Friday dialysis schedule at [place] presented with possible
hematemesis. He has a history of GI bleeding with erosive gastritis and was admitted from through 01/25 for GI bleeding requiring 2 units of blood. The patient also had significant urinary retention during that hospitalization requiring
Griffiths catheter with difficulty placing due to phimosis. He has been C. difficile antigen positive toxin negative and treated prophylactically with oral vancomycin. He was anemic with hemoglobin of 6.8 on presentation and nephrology was consulted
for end-stage renal disease management.
Past Medical History
Atrial fibrillation, CVA -Residual aphasia and paraplegia, residual dysphagia status post PEG, HTN and End-stage renal disease on hemodialysis Friday via right IJ PermCath, he is status post a left upper extremity AV fistula 1 month
ago
Past Surgical History: Other (PEG tube placement, exploratory laparotomy, AVF)
Social History
Tobacco: Non-Smoker
Alcohol: None
Drug: None
Family History
Family History: Unable to Obtain (non verbal)
Allergies / Home Medications
Allergy/AdvReac Type Severity Reaction Status Date / Time
No Known Allergies Allergy Verified 11/01/24 22:20
�Medication �Instructions �Recorded �Confirmed �Type
apixaban 5 mg tablet (Eliquis) 5 mg feeding tube BID Blood Clot 11/02/24 11/22/24 History
Prevention/Tx
pantoprazole 40 mg granules 40 mg feeding tube BID #30 ea 11/11/24 11/22/24 Rx
delayed-release for susp in packet
psyllium husk 3.4 gram oral powder 1 packet feeding tube DAILY #44 ea 11/11/24 11/22/24 Rx
packet (Metamucil Fiber
(aspartame))
sucralfate 100 mg/mL oral 1 g (10 mL) feeding tube BID 11/11/24 11/22/24 Rx
suspension #1,000 mL
acetaminophen 325 mg tablet 650 mg feeding tube DAILY 11/22/24 11/22/24 History
(Tylenol)
acetaminophen 325 mg tablet 650 mg feeding tube Q6HPRN PRN 11/22/24 11/22/24 History
(Tylenol) MILD PAIN
allopurinol 100 mg tablet 100 mg feeding tube DAILY 11/22/24 11/22/24 History
bisacodyl 10 mg rectal suppository 10 mg WI DAILYPRN PRN CONSTIAPTION 11/22/24 11/22/24 History
(Dulcolax (bisacodyl))
loperamide 2 mg capsule 2 mg feeding tube Q8HPRN PRN 11/22/24 11/22/24 History
DIARRHEA
loperamide 2 mg capsule 4 mg feeding tube BID 11/22/24 11/22/24 History
lorazepam 0.5 mg tablet 0.5 mg feeding tube BIDPRN PRN 11/22/24 11/22/24 History
AXNIETY
nystatin 100,000 unit/mL oral 10 ml buccal TID 11/22/24 11/22/24 History
suspension
sertraline 25 mg tablet 25 mg feeding tube DAILY 11/22/24 11/22/24 History
sevelamer carbonate 800 mg tablet 800 mg feeding tube AC 11/22/24 11/22/24 History
sorbitol 70 % solution 30 ml PO DAILYPRN PRN 11/22/24 11/22/24 History
CONSTIPATION/ VIA PEG TUBE
tramadol 50 mg tablet 50 mg feeding tube BID 11/22/24 11/22/24 History
Review of Systems
-
Unable to obtain full review of systems at this time due to: Patient Non Verbal
History Source: Patient
All other systems: Negative unless noted
Physical Exam
Vital Signs
Vital Signs
Temp Pulse Resp BP Pulse Ox
98.6 F 74 12 139/62 97
11/23/24 03:00 11/23/24 06:00 11/23/24 06:00 11/23/24 06:00 11/23/24 06:00
Lab Results
11/23/24 05:33
11/22/24 15:30
WBC 16.5 10^3/uL (4.8-10.8) H 11/23/24 05:33
RBC 2.57 10^6/uL (4.70-6.10) L 11/23/24 05:33
Hgb 6.8 g/dL (13.0-18.0) L* D 11/23/24 05:33
Hct 22.0 % (39.0-52.0) L 11/23/24 05:33
Plt Count 383 10^3/uL (130-400) 11/23/24 05:33
Sodium 131 mmol/L (135-145) L 11/22/24 15:30
Potassium 4.2 mmol/L (3.5-5.1) 11/22/24 15:30
Chloride 95 mmol/L (98-107) L 11/22/24 15:30
Carbon Dioxide 31 mmol/L (22-30) H 11/22/24 15:30
BUN 39 mg/dl (9-20) H 11/22/24 15:30
Creatinine 2.2 mg/dL (0.7-1.3) H 11/22/24 15:30
eGFR 33.66 11/22/24 15:30
Glucose 111 mg/dl (70-99) H 11/22/24 15:30
Calcium 8.4 mg/dl (8.4-10.2) 11/22/24 15:30
Albumin 3.0 g/dl (3.5-5.0) L 11/22/24 15:30
Physical Exam
General: Awake, Alert, No Distress, Nontoxic and Other (Chronically ill-appearing)
HEENT: EOMI and Neck Supple
Respiratory: Normal Excursion, Nonlabored Respirations and Other (coarse)
Cardiac: S1/S2 and Regular Rate/Rhythm
Breast: Deferred by me
Abdomen: Soft, Nontender, Nondistended and Other (midline scar noted and palpable mass near umbilicus-suspect is bladder)
Genito-urinary: Other (griffiths)
Musculoskeletal: No Cyanosis and Edema
Skin: No Rash
Neuro: Other (unable to assess, pt non verbal, does not follow commands)
Psych: Other (unable to assess since he is non verbal)
Vascular Access: AVF (thrill (LUE)), CVC (Tunneled right IJ catheter) and Other
Data Reviewed
-
Radiology: Image Personally Visualized and interpreted (Chest x-ray personally reviewed no overt congestive heart failure or effusions noted tunneled right IJ catheter)
Labs: Labs Reviewed by me (BMP CBC)
Old Records: Reviewed (reviewed ESRD consult for GI bleeding in EMR 11/02/24)
Assessment/Plan
-
IMP:
Acute blood loss anemia 2/2 GIB on anemia of chronic disease 2/2 ESRD
Diarrhea
Hx of recent C.diff
Leukocytosis
ESRD on HD-[facility]
left UE AVF
right chest wall catheter
Mild hypokalemia
Dysphagia on PEG
Hx of CVA with residual aphasia and paraplegia
Urine retention
NIDDM
Plan:
No acute requirement for dialysis today based on volume status or electrolyte status
Dialysis will be provided for tomorrow
Blood products to be provided as necessary for anemia, NIVIA support will be provided as well as IV iron if needed
Currently hemodynamically stable
--- NOTE | 2024-11-23 08:13 | W.PN.HOSP.TC ---
Today's Communication/Plan
-
See plan
Assessment / Plan
Assessment / Plan
Physical Exam
General: No Apparent Distress
Respiratory: Clear to Auscultation
Cardiac: S1 and S2. Regular Rhythm
GI: Soft, Nontender and Nondistended. Positive bowel sounds.
Skin: Warm
Neuro: Awake and Alert
Psych: Calm
Assessment/Plan
59-year-old male past medical history of CVA, nonverbal, paraplegia (bedbound status), dysphagia with PEG tube, history of tracheostomy status post removal, ESRD on dialysis Friday, sick on Friday, chronic iron deficiency anemia, history of GI
bleeding/erosive gastritis this month, paroxysmal atrial fibrillation, cholelithiasis, chronic sacral/ischial wounds presented with vomiting blood at [facility]. He was recently admitted from 11/02/24 to 11/11/24 for GI bleeding requiring
2 units of blood transfusion. Had EGD which was obscured by tube feeds but suspected erosive gastritis. He was treated with Protonix and Carafate. PEG tube recommend to be changed in 3 to 4 weeks. Also had urinary retention Wellington catheter
difficulty placed due to phimosis. He was C. difficile antigen positive, toxin negative and treated with prophylactic oral vancomycin for chronic diarrhea. Vital signs show blood pressure of 82/46. He was covered with brown watery diarrhea up to
his back. ER reportedly notes blood aspirated from PEG tube although no evidence currently. Labs shoed leukocytosis. Hemoglobin of 8.8 from 8.2 on discharge. Heme test negative. Patient with possible hematemesis and bleeding from PEG tube.
Patient here with SIRS positive, volume depletion from diarrhea unclear if this is due to persistent C. difficile. Check stool culture, C. difficile.
#Acute hypotension due to volume depletion from diarrhea
-Status post 1 L IV NSS
-Continue to monitor in IMU
#Diarrhea
#Chronic loose stool 3-4 per day
#History of recent C.diff
#History of C. difficile PCR positive toxin negative
Last admission, Metamucil and Imodium with continued evaluation for need to stop
He was treated for C. difficile for toxin negative antigen positive -- stool C.diff PCR positive and toxin neg -- frequency of PO Vancomycin was reduced to help with patient's diarrhea which in turn can be affecting patient's wounds -- continue C.
diff prophylaxis po vancomycin to 125mg daily through 11/18/24
Rectal tube taken out on 11/08/24 as tube risk for irritation with continued use and SNF needs out prior to transfer -- so plan was to use external pouch if needed
Follow stool studies
#Leukocytosis
-Follow blood cultures
-Continue Merrem
-C. diff prophylaxis with po Vancomycin 125mg daily while on systemic abx.
#Chronic bedbound status causing decubitus wounds
#Sacral/ischial decub wounds stage II, ischial wound stage I or II close proximity rectal area
#Extensive history of sacral wound mgmt in [facility]
-Last admission: given concern for stool contaminating patient's wound in close proximity to his rectal area, consulted colorectal surgery for possible colostomy bag -- but patient is too high risk for surgery with extremely high risk for
complications -- colorectal surgeon spoke with patient's , mentioned that it would be technically challenging due to his prior surgeries, which limit options for ostomy locations. At this time, patient's is not interested in colostomy with
these risks in mind.
-Would have preferred to avoid replacement of rectal tube as a rectal tube for prolonged period will also cause decubitus ulcers and wounds
-Patient was on C. difficile prophylaxis with oral vancomycin 125 daily through 11/18/2024 --- Probiotic and recently reduced (on 11/09/24) frequency of PO Vancomycin to daily prophylaxis to see whether that helps with diarrhea
-Continue Merrem and PO Vancomycin prophylaxis
-Consult wound care
#Leukocytosis
#Recent Bacteremia
-Continue antibiotics
#Recent severe erosive gastritis(no H. pylori on recent path)
#Recent GI bleed secondary to blood loss anemia and anemia chronic disease secondary to ESRD-received 2 units of PRBCs on recent admission
Reportedly vomited blood at [facility]
Was seen by GI recently with recommended upper Endo 1.75 months to check healing severity of gastritis and inability to see stomach
under white coating question tube feeds
Will need PEG tube replacement 3 to 4 weeks-per prior GI recommendations
-Hgb 8.8> 8.2 on 11/11/2024
-Continue IV Protonix and Carafate
-Continue PRBC transfusions as needed
#History of A-fib on Eliquis
-Hold Eliquis
#Recent acute Urinary retention(2liters) required Wellington catheter on discharge
#Acute urinary retention
#Phimosis
#Difficult Wellington Catheter
-Patient has difficult Wellington catheter insertion/history of phimosis
-Unable to use Flomax or finasteride as they cannot be crushed and PEG tube
#ESRD on HD Friday via right IJ permacath
#New 1-month-old old left upper extremity AV fistula
-Appreciate nephrology
#Recent Hypophosphatemia
#History of CVA with residual aphasia, dysphagia paraplegia
#Patient nonverbal due to CVA
#History of dysphagia due to CVA on current PEG tube
- Hold tube feeds due to GI bleed/n.p.o.
#History of trach with removal
#Anxiety history
Continue Zoloft 25 mg via G-tube
<Continue lorazepam 0.5 mg twice daily as needed anxiety hold SBP<110
#History of ALP elevation
#mild relative left-sided 'bulging' of the intestinal tract
atrophy of the rectus abdominis musculature
#Dysphagia
on PEG
Continue tube feeding diet
#Hx of CVA with residual aphasia and paraplegia
#Nonverbal
-Hold Eliquis
#History of Trach
-Previously removed
#Recent History of Bilateral atelectasis secondary to bedbound status
2/2 bedbound status
cannot follow instruction for IS approprietly
#Asymptomatic cholelithiasis
#Hepatosplenomegaly
Outpatient follow up
Anticipated Discharge: > 48 hours
Subjective/Interval History
-
Date of Service: November 23, 2024
Patient was seen and examined. He continued to have diarrhea.
Objective Data
-
Labs:
Laboratory Results
11/23/24
05:33
WBC 16.5 H
Hgb 6.8 L* D
Hct 22.0 L
Plt Count 383
Vital Signs:
Vital Signs
Temp Pulse Resp BP Pulse Ox
98.6 F 74 12 139/62 97
11/23/24 03:00 11/23/24 06:00 11/23/24 06:00 11/23/24 06:00 11/23/24 06:00
[2024-11-23] MEDS: CARAFATE SUSPENSION 1 GM TUBE ×2 (09:17→23:18)
[2024-11-23] MEDS: ZYLOPRIM 100 MG TUBE (09:18)
[2024-11-23] MEDS: ZOLOFT 25 MG TUBE (09:18)
[2024-11-23] MEDS: TYLENOL 650 MG TUBE (09:18)
--- NOTE | 2024-11-23 11:16 | CON.ID ---
Consultation
-
Date/Time Consultation Requested: November 22, 2024
Date/Time Consultation Performed: November 23, 2024
Requesting Provider: PENG Del Valle
Performing Provider: Dr. Chela Montague
Reason for Consultation: Diarrhea, recent C. difficile
Chief Complaint / Past History
Chief Complaint
Hematemesis
History of Present Illness
Patient is nonverbal, most of the history is obtained through the chart. This is a 59-year-old male with past medical history significant for CVA with residual paraplegia bedbound, s/post trach(now removed) and PEG, without bowel resection, atrial
fibrillation on anticoagulation, jkf-spfqryl-icedadhyu diabetes, hypertension on hydralazine, ESRD on hemodialysis via right IJ PermCath brought to the emergency department from [facility] due to GI bleed/blood suctioned from PEG tube. Patient was
recently hospitalized from November 02 to November 11 with upper GI bleed status post EGD and found to have erosive gastritis. During hospital stay, patient with diarrhea, loose stool; C. difficile antigen positive, toxin negative. The chronic
sacral decubitus wounds deteriorated in setting of stool contamination. Per colorectal, he was deemed too high risk for diverting colostomy. Patient was placed on 5-day course antibiotic for sacral wound infection and prophylactic oral vancomycin
completed 5 days after systemic antibiotic. At group home, patient reportedly had coffee ground emesis. Also noted to have blood from PEG tube suction. Patient denies vomiting. He denies abdominal pain. Positive diarrhea. Patient arrived
covered in brown diarrhea on his back. Stool for C. difficile negative. Chest x-ray negative. He had episode of hypothermia. Admission blood culture 1 out of 1 set positive for gram-negative hortensia.
Past History
Past Medical History: Other
Additional Past Medical History:
CVA and paraplegia
Dysphagia status post PEG
Atrial fibrillation
HTN
End-stage renal disease on hemodialysis Friday via right IJ PermCath
GIB/erosive gastritis
C. diff x 1 (08/2024)
Chronic sacral decubitus wounds
Urinary retention with griffiths
Left upper extremity AV fistula placement
history of intra-abdominal abscess/necrotizing infection s/p exploratory laparotomy
Past Surgical History: Other (PEG tube placement, exploratory laparotomy, AVF))
Allergy History:
No Known Allergies Allergy (Verified 11/01/24 22:20)
Medications Reviewed: Yes
Current Antibiotics:
none
Social History
Tobacco: Non-Smoker
Alcohol: None
Drug: None
Personal:
Living: [facility] (unable to obtain social hx as patient is non verbal.)
Family History
Family History: Not Pertinent and Unable to Obtain (Patient not verbal)
Review of Systems
Review of Systems
General: Negative Fever or Chills
HEENT: Negative Headache
Respiratory: Negative Dyspnea or Cough
Gasteroenterology: Diarrhea; Negative Nausea or Vomiting
Genital / Urological: Negative Flank Pain
Vital Signs
Temp Pulse Resp BP Pulse Ox
97.6 F 72 15 128/62 97
11/23/24 09:26 11/23/24 09:26 11/23/24 09:26 11/23/24 09:26 11/23/24 06:00
Physical Exam
Physical Exam
Constitutional: Comfortable and Chronically Ill
Eyes: No Conjunctival Hemorrhage and Sclera Anicteric
Cardiovascular: Regular Rate and S1/S2
Pulmonary: Clear
Gastrointestinal: Soft, Non Tender, Non Distended, Normal Bowel Sounds and Other (PEG site clean)
Genito-Urinary: Griffiths and Clear Urine; Negative CVA Tenderness
Extremities: Negative Edema
Neurological: Awake and Alert
Lines: HD Cath (RCW no erythema)
Lab / Diagnostic Study Results
11/23/24 05:33
11/22/24 15:30
Abs Immat Gran (auto) 0.2 10^3/uL (0-0.05) H 11/23/24 05:33
Absolute Neuts (auto) 12.8 10^3/uL (1.4-6.5) H 11/23/24 05:33
Absolute Lymphs (auto) 1.7 10^3/uL (1.2-3.4) 11/23/24 05:33
Absolute Monos (auto) 1.0 10^3/uL (0.1-0.6) H 11/23/24 05:33
Absolute Basos (auto) 0.1 10^3/uL (0-0.2) 11/23/24 05:33
Immature Gran % 1.2 % (0-0.5) H 11/23/24 05:33
Neutrophils % 77.7 % (42.2-75.2) H 11/23/24 05:33
Lymphocytes % 10.4 % (20.5-51.1) L 11/23/24 05:33
Monocytes % 5.9 % (1.7-9.3) 11/23/24 05:33
Eosinophils % 4.3 % (0-6) 11/23/24 05:33
Basophils % 0.5 % (0-2) 11/23/24 05:33
Microbiology Results
Micro:
11/22/24 15:30 Salmonella/Shigella Culture - Preliminary
Feces/Stool Culture in Progress
Campylobacter Culture - Preliminary
Culture in Progress
Shiga Toxin Test - Pending
11/22/24 15:29 Blood Culture - Preliminary
Blood/Venous Positive culture in progress
Gram Stain - Final
11/23/24 05:33 Blood Culture - Pending
Blood/Venous
11/23/24 04:44 MRSA Screen - Pending
Nose
11/22/24 15:30 C. difficile GDH Antigen & Toxins - Final
Feces/Stool Negative for toxigenic C.difficile
11/23/24 AXR: Nonspecific bowel gas pattern without signs of obstruction.
11/22/34 CXR: No acute cardiopulmonary process.
Assessment / Plan
# MDR, ESBL-Klebsiella bacteremia 1 of 1 set bcx
# leukocytosis trended up
# hypothermia
# Blood loss anemia - possibly from UGIB
# Diarrhea -> C. diff neg.
# hx C. diff x 1 (august 2024)
# ESRD on HD
# CVA, paraplegia, bed bound, PEG on tube feed
- Repeat blood cx x 1 (off abx) pending
- Ordered 2nd set bcx (off abx) then start meropenem 500mg IV q24.
- Add C. diff prophylaxis with po Vancomycin 125mg daily while on systemic abx.
- Trend temps/wbc.
- Contact isolation
Conditions present on admission
CVA and paraplegia
Dysphagia status post PEG
Atrial fibrillation
HTN
End-stage renal disease on hemodialysis Friday via right IJ PermCath
GIB/erosive gastritis
C. diff x 1 (08/2024)
Chronic sacral decubitus wounds
Urinary retention with griffiths
Left upper extremity AV fistula placement
history of intra-abdominal abscess/necrotizing infection s/p exploratory laparotomy
--- NOTE | 2024-11-23 11:39 | CM ---
Initial Assessment Completed by Garrod. Moore from [facility] confirmed that patient is LTC there, would like an auth if possible for return, and shared that he is total care as well as been there since July 2024.
Teresa shared that the [facility]cruz has been working with her to make better accommodations at [facility] for the patient, thus far has been fine. Additionally, Teresa shared that the [facility] has not been happy about the amount of PT/OT he can
recieve based on his [place] H[place] plan, which is not much. Marycruz lives an hour aware and the facility has tried to move him closer to her, but unable to find facility. Return SNF/ LTC referral sent [facility] to follow the patient.
PLAN: Return ot [facility] when ready.
[2024-11-23] MEDS: PROTONIX IV 40 MG IV ×2 (11:42→23:18)
[2024-11-23] MEDS: NSS (PRESERVATIVE FREE) 10 ML IV ×2 (11:42→23:18)
[2024-11-23] MEDS: OMNIPAQUE 50 ML PO (11:43)
[2024-11-23] MEDS: ULTRAM TUBE (13:03)
[2024-11-23] MEDS: FIRVANQ 125 MG TUBE (13:04)
[2024-11-23] MEDS: STERILE WATER FOR INJECTION 10 ML IV (14:29)
[2024-11-23] MEDS: MERREM 500 MG IV (14:30)
--- NOTE | 2024-11-23 16:24 | PTCARENOTE ---
Constant liquid stools invading stage 4 wounds, changed x4 this shift. D/w providers, rectal trumpet placed. PO Contrast given via PEG. Transported to CT Scan .
[2024-11-23 17:52] LABS: Iron 45 ug/dl (49-181); Total Iron Binding Capacity 144 ug/dl (261-462)
[2024-11-23 18:45] LABS: Folate > 20.0 ng/ml (2.76-20); Vitamin B12 851 pg/ml (239-931)
[2024-11-23] MEDS: DAKIN'S SOLUTION 0.125% 1/4 STRENGTH TOPICAL (18:48)
--- NOTE | 2024-11-23 18:50 | PTCARENOTE ---
REturned with right midline IV .
[2024-11-23 19:00] LABS: Ferritin 1200.0 ng/ml (17.9-464.0)
[2024-11-23 22:59] LABS: Hemoglobin 7.7 g/dL (13.0-18.0)
[2024-11-24] VITALS (37 sets, daily range): BP systolic 101–149; BP diastolic 48–86; BMI 27.9
[2024-11-24] MEDS: TYLENOL 650 MG TUBE ×2 (00:02→09:44)
--- NOTE | 2024-11-24 03:23 | PTCARENOTE ---
Assumed care for patient overnight. Pt non-verbal, but tracking. Pt nodding yes and no. PEG site C/D/I, crusting at the base. PEG is patent. Rectal trumpet intact, brown liquid output. Wound care done per order. Pt notably in pain from wound care,
administered PRN Tylenol. Calazime cream to buttocks. Chronic griffiths urine appears to be cloudy in tubing. Griffiths hygiene done. Full CHG bath, new linens. NSR on the monitor. SpO2 98% on room air. Pt tolerating frequent turning and repositioning with
foam wedge, heels floated on pillow.
[2024-11-24 05:47] LABS: Hematocrit 23.5 % (39.0-52.0); Hemoglobin 7.3 g/dL (13.0-18.0); Mean Corp Hgb Conc. 31.1 g/dL (33.0-37.0); Mean Corpuscular Volume 87.0 fL (80.0-94.0); Nucleated Red Blood Cells % 0 % (-); Platelet Count 404 10^3/uL (130-400); Red Cell Dist. Width 14.7 % (11.5-14.5)
[2024-11-24 05:54] LABS: INR 1.38; PT 17.3 Sec (11.4-14.6)
--- NOTE | 2024-11-24 09:31 | WOUNDNOTE ---
[facility] RN note: Patient admitted with vomiting, C-diff
See H&P for complete history.
PMH: CVA, bedbound status
nonverbal
dysphagia requiring PEG tube
History of trach with removal
ESRD on dialysis Friday
chronic iron deficiency anemia
recent GI bleed/erosive gastritis November 2024
paroxysmal A-fib
cholelithiasis
alk phos elevation.
Wound Location and type/assessment: Patient admitted with Stage 4 sacral wound and unstageable wound of ischium. Patient was visited on both 11/23 and 11/24 by this narrative writer as visualization of wounds was difficult due to uncontrolled stooling. A
rectal tube has since been placed which has been successful in keeping wound environment clean. Please see pictures and work list for description and measurements of wounds. Heels are intact and were off-loaded with pillows under calves. Sacrum was
found to be off-loaded with wedge.
Appetite: Patient is currently NPO
Pressure redistribution devices in place: Centrellla Max Air, turning schedule, heels off-loaded with pillows under calves
Plan: Will recommend Santyl for unstageable ischial wound and Dakins packing for sacral wounds. Both wounds can be cleaned with Dakins. ADRIANA Quan given update and orders confirmed with hospitalist. Discharge orders and care plan updated.
Note to case management of equipment requested for discharge: Patient needs air mattress at [facility]
Recommend follow up at wound care center upon discharge.
[2024-11-24] MEDS: NSS (PRESERVATIVE FREE) 10 ML IV ×2 (09:43→19:55)
[2024-11-24] MEDS: CARAFATE SUSPENSION 1 GM TUBE ×2 (09:43→19:55)
[2024-11-24] MEDS: PROTONIX IV 40 MG IV ×2 (09:44→19:55)
[2024-11-24] MEDS: ZOLOFT 25 MG TUBE (09:46)
[2024-11-24] MEDS: FIRVANQ 125 MG TUBE (09:50)
[2024-11-24] MEDS: DAKIN'S SOLUTION 0.125% 1/4 STRENGTH 1 ML TOPICAL (09:50)
[2024-11-24] MEDS: ZYLOPRIM 100 MG TUBE (09:51)
--- NOTE | 2024-11-24 11:10 | PN.CDI ---
CDI
- -
CDI:
Physician Documentation Request
Admit Date: 11/22/24 19:17
Dear Doctor Darlene,
Please review the following and provide your response in the progress notes.
Clinical Indicators:
Pt admitted with hematemesis and hypotension due to volume depletion from diarrhea.
11/23 Progress note: 'Patient with possible hematemesis and bleeding from PEG tube..-Hold Eliquis.'
Hemoglobin 11/23 8.8; 11/24 6.8- received 1 unit PRBC's
Please clarify the relationship between these conditions:
Yes, hematemesis is related to/associated with/exacerbated by Eliquis.
No, hematemesis is not related to/associated with/exacerbated by Eliquis.
Other
Use of terms such as suspected, likely, concern for, or probable (associated with a specific diagnosis that is being evaluated, monitored, or treated as if it exists) are acceptable and can be coded in the inpatient setting, when documented at the
time of discharge.
Thank you,
Elana Adler RN, BSN
CDI Specialist
[place] [facility]
Please use your independent medical judgment in providing your response.
--- NOTE | 2024-11-24 11:43 | W.PN.ID1 ---
Date of Service
Date of Service: November 24, 2024
Today's Communication
Continue meropenem.
Assessment / Plan
# MDR, ESBL-Klebsiella bacteremia 1 of 1 set bcx
# leukocytosis trended up
# s/p hypothermia
# Blood loss anemia - possibly from UGIB
# Diarrhea -> C. diff neg.
# hx C. diff x 1 (august 2024)
# ESRD on HD
# CVA, paraplegia, bed bound, PEG on tube feed
- Repeat blood cx x 1 (off abx) negative to date.
- 2nd set bcx pending
- Continue meropenem 500 mg Iv q24 (d2 )
- Continue C. diff prophylaxis with po Vancomycin 125mg daily while on systemic abx.
- Trend wbc.
- Contact isolation
Conditions present on admission
CVA and paraplegia
Dysphagia status post PEG
Atrial fibrillation
HTN
End-stage renal disease on hemodialysis Friday via right IJ PermCath
GIB/erosive gastritis
C. diff x 1 (08/2024)
Chronic sacral decubitus wounds
Urinary retention with griffiths
Left upper extremity AV fistula placement
history of intra-abdominal abscess/necrotizing infection s/p exploratory laparotomy
Chief Complaint
-: Bacteremia
Vital Signs / Physical Exam
Vital Signs
Vital Signs
Temp Pulse Resp BP Pulse Ox
97.3 F 80 18 135/70 96
11/24/24 07:20 11/24/24 10:00 11/24/24 10:00 11/24/24 10:00 11/24/24 10:00
Physical Exam
Constitutional: Chronically Ill
Cardiovascular: Regular Rate and S1/S2
Pulmonary: Clear
Gastrointestinal: Soft, Non Tender, Non Distended and Other (FMS liquid brown stool)
Genito-Urinary: Griffiths and Clear Urine
Extremities: Edema
Lines: HD Cath (No erythema)
Objective Data
Lab Data
Lab Results
11/24/24 05:19
PT 17.3 Sec (11.4-14.6) H 11/24/24 05:19
INR 1.38 11/24/24 05:19
Total Bilirubin 0.5 mg/dl (0.2-1.3) 11/22/24 15:30
AST 27 U/L (17-59) 11/22/24 15:30
ALT 16 U/L (0-50) 11/22/24 15:30
Alkaline Phosphatase 121 U/L (38-126) 11/22/24 15:30
Most recent labs reviewed.
Micro Results:
11/22/24 15:30 Salmonella/Shigella Culture - Preliminary
Feces/Stool Culture in Progress
Campylobacter Culture - Final
No Campylobacter species isolated.
Shiga Toxin Test - Pending
11/22/24 15:29 Blood Culture - Preliminary
Blood/Venous Klebsiella pneumoniae-ESBL
Gram Stain - Final
11/23/24 04:44 MRSA Screen - Final
Nose No Methicillin Resistant Staphylococcus aureus isolated.
11/23/24 05:33 Blood Culture - Preliminary
Blood/Venous No Growth in 24 hours- Final report to follow
11/23/24 22:49 Blood Culture - Pending
Blood/Venous
11/22/24 15:30 C. difficile GDH Antigen & Toxins - Final
Feces/Stool Negative for toxigenic C.difficile
11/23/24 CT a/p: Moderate small bowel wall thickening in the right abdomen.. New.
11/23/24 AXR: Nonspecific bowel gas pattern without signs of obstruction.
11/22/34 CXR: No acute cardiopulmonary process.
[2024-11-24 12:58] LABS: Blood Urea Nitrogen 58 mg/dl (9-20); Calcium 8.9 mg/dl (8.4-10.2); Carbon Dioxide 26 mmol/L (22-30); Chloride 95 mmol/L (98-107); Estimated Creatinine Clearance 24 ml/min; Glucose 68 mg/dl (70-99); Potassium 4.2 mmol/L (3.5-5.1); Sodium 130 mmol/L (135-145); eGFR 20.69
--- NOTE | 2024-11-24 13:04 | W.PN.NEPH.HD ---
Progress Note - Hemodialysis
-
Date of Service: November 24, 2024
Duration: 30 minutes and 3 hours
Potassium Bath: 3
Calcium Bath: 2.5
Opti-Dialyzer: 160
Ultrafiltration: Other (1.5-2kg)
Blood Flow: 400
Dialysate Flow: 600
Heparin: no
EPO: [id number]
--- NOTE | 2024-11-24 13:42 | W.PN.HOSP.TC ---
Today's Communication/Plan
-
Continue Merrem
Recheck Hgb/CBC this evening
Appreciate GI and ID -- hopefully can resume tube feeds soon
Assessment / Plan
Assessment / Plan
Physical Exam
General: No Apparent Distress
Respiratory: Clear to Auscultation
Cardiac: S1 and S2. Regular Rhythm
GI: Soft, Nontender and Nondistended. Positive bowel sounds.
Skin: Warm
Neuro: Awake and Alert
Psych: Calm
Assessment/Plan
59-year-old male past medical history of CVA, nonverbal, paraplegia (bedbound status), dysphagia with PEG tube, history of tracheostomy status post removal, ESRD on dialysis Friday, sick on Friday, chronic iron deficiency anemia, history of GI
bleeding/erosive gastritis this month, paroxysmal atrial fibrillation, cholelithiasis, chronic sacral/ischial wounds presented with vomiting blood at [facility]. He was recently admitted from 11/02/24 to 11/11/24 for GI bleeding requiring
2 units of blood transfusion. Had EGD which was obscured by tube feeds but suspected erosive gastritis. He was treated with Protonix and Carafate. PEG tube recommend to be changed in 3 to 4 weeks. Also had urinary retention Wellington catheter
difficulty placed due to phimosis. He was C. difficile antigen positive, toxin negative and treated with prophylactic oral vancomycin for chronic diarrhea. Vital signs show blood pressure of 82/46. He was covered with brown watery diarrhea up to
his back. ER reportedly notes blood aspirated from PEG tube although no evidence currently. Labs shoed leukocytosis. Hemoglobin of 8.8 from 8.2 on discharge. Heme test negative. Patient with possible hematemesis and bleeding from PEG tube.
Patient here with SIRS positive, volume depletion from diarrhea unclear if this is due to persistent C. difficile. Check stool culture, C. difficile.
#Acute hypotension due to volume depletion from diarrhea
-Resolved after IV fluids given
-Transfer to telemetry
#Diarrhea
#Chronic loose stool 3-4 per day
#History of recent C.diff
#History of C. difficile PCR positive toxin negative
Last admission, Metamucil and Imodium with continued evaluation for need to stop
He was treated for C. difficile for toxin negative antigen positive -- stool C.diff PCR positive and toxin neg -- frequency of PO Vancomycin was reduced to help with patient's diarrhea which in turn can be affecting patient's wounds -- continue C.
diff prophylaxis po vancomycin to 125mg daily (as below)
Rectal tube taken out on 11/08/24 as tube risk for irritation with continued use and SNF needs out prior to transfer -- so plan was to use external pouch if needed
Follow stool studies -- negative for toxigenic C. diff this admission
#MDR, ESBL-Klebsiella bacteremia
#Leukocytosis
-Follow repeat blood cultures
-Continue Merrem (Day 2)
-C. diff prophylaxis with po Vancomycin 125mg daily while on systemic abx.
#Chronic bedbound status causing decubitus wounds
#Sacral/ischial decub wounds stage II, ischial wound stage I or II close proximity rectal area
#Extensive history of sacral wound mgmt in [facility]
-Last admission: given concern for stool contaminating patient's wound in close proximity to his rectal area, consulted colorectal surgery for possible colostomy bag -- but patient is too high risk for surgery with extremely high risk for
complications -- colorectal surgeon spoke with patient's , mentioned that it would be technically challenging due to his prior surgeries, which limit options for ostomy locations. At this time, patient's is not interested in colostomy with
these risks in mind.
-Would have preferred to avoid replacement of rectal tube as a rectal tube for prolonged period will also cause decubitus ulcers and wounds
-Patient was on C. difficile prophylaxis with oral vancomycin 125 daily through 11/18/2024 --- Probiotic and recently reduced (on 11/09/24) frequency of PO Vancomycin to daily prophylaxis to see whether that helps with diarrhea
-Continue Merrem and PO Vancomycin prophylaxis
-Consult wound care
#Recent severe erosive gastritis(no H. pylori on recent path)
#Recent GI bleed secondary to blood loss anemia and anemia chronic disease secondary to ESRD-received 2 units of PRBCs on recent admission
#Yes, hematemesis is associated with/exacerbated by Eliquis.
Reportedly vomited blood at [facility]
Was seen by GI recently with recommended upper Endo 1.75 months to check healing severity of gastritis and inability to see stomach
under white coating question tube feeds
Will need PEG tube replacement 2 to 3 weeks-per prior GI recommendations
-Hgb 7.3 today
-Continue IV Protonix and Carafate
-Continue PRBC transfusions as needed
#History of A-fib on Eliquis
-Hold Eliquis
#Recent acute Urinary retention(2liters) required Wellington catheter on discharge
#Acute urinary retention
#Phimosis
#Difficult Wellington Catheter
-Patient has difficult Wellington catheter insertion/history of phimosis
-Unable to use Flomax or finasteride as they cannot be crushed and PEG tube
#ESRD on HD Friday via right IJ permacath
#New 1-month-old old left upper extremity AV fistula
-Appreciate nephrology
-Dialysis as per nephrology
#Recent Hypophosphatemia
#History of CVA with residual aphasia, dysphagia paraplegia
#Patient nonverbal due to CVA
#History of dysphagia due to CVA on current PEG tube
- Hold tube feeds due to GI bleed/n.p.o.
- Resume tube feeds as per GI -- see dietitian notes for tube feed recommendations when resuming tube feeds
#History of trach with removal
#Anxiety history
Continue Zoloft 25 mg via G-tube
<Continue lorazepam 0.5 mg twice daily as needed anxiety hold SBP<110
#History of ALP elevation
#mild relative left-sided 'bulging' of the intestinal tract
atrophy of the rectus abdominis musculature
#Dysphagia
on PEG
Holding tube feeding diet as above
#History of CVA with residual aphasia and paraplegia
#Nonverbal
-Hold Eliquis, resume as per GI
#History of Trach
-Previously removed
#Recent History of Bilateral atelectasis secondary to bedbound status
2/2 bedbound status
-cannot follow instruction for IS appropriately
#Asymptomatic cholelithiasis
#Hepatosplenomegaly
-Outpatient follow up
Anticipated Discharge: > 48 hours
Subjective/Interval History
-
Date of Service: November 24, 2024
Patient was seen and examined. No new symptoms or complaints.
Objective Data
-
Labs:
Laboratory Results
11/24/24 11/24/24
05:19 12:23
WBC 16.8 H
Hgb 7.3 L
Hct 23.5 L
Plt Count 404 H
PT 17.3 H
INR 1.38
Sodium 130 L
Potassium 4.2
Chloride 95 L
Carbon Dioxide 26
BUN 58 H
Creatinine 3.3 H
Glucose 68 L
Calcium 8.9
Vital Signs:
Vital Signs
Temp Pulse Resp BP Pulse Ox
97.3 F 80 18 135/70 96
11/24/24 07:20 11/24/24 10:00 11/24/24 10:00 11/24/24 10:00 11/24/24 10:00
I&O
11/23/24 11/24/24 11/25/24
06:59 06:59 06:59
Intake Total 250 / 250
Balance 250 / 250
[2024-11-24] MEDS: RETACRIT 10000 UNITS IV (13:50)
[2024-11-24] MEDS: HEPARIN 3000 UNITS INTRACATH (14:57)
--- NOTE | 2024-11-24 15:31 | CM ---
Following up on Patient. RN stated HGB is low, white count is increasing, and so not close to being ready as well as might not downgrade due to these issues.
PLAN: Return to [facility] when ready.
[2024-11-24] MEDS: MERREM 500 MG IV (16:13)
[2024-11-24] MEDS: STERILE WATER FOR INJECTION 10 ML IV (16:13)
--- NOTE | 2024-11-24 16:27 | W.PN.GI.CBS2 ---
Today's Communication / Plan
-
If H/H stable consider TF tomorrow
C/w PPI and carafate
Monitor stool output
Assessment / Plan
-
Jordon is an 59yo M long-term resident with h/o paraplegia due to CVA s/p multiple PEGs last 05/2023 complicated by intra-abd abscess, ESRD on HD and recent Cdiff who was admitted for vomiting and worsening Hbg down to 6.8. He is not able to
provide history. Lavage of PEG with pink tinged fluid. He had recent admission 11/02-11/11 for similiar issues and EGD 11/03/24 with diffuse gastritis. Vitals stable exam chronically ill appearing, obese abd NTTP, RUQ with PEG tube minor erythema
surrounding. Labs reviewed Hbg 6.8 s/p 1 unit PRBC. CTAP IV oral contrast small bowel wall thickening in R abdomen, DC colitis, ? PNA, gallstones severe anasarca
Impression
- Positive blood cultures
- Acute on chronic anemia
Recent EGD 11/03 with diffuse gastritis
- Loose stools
- Recent h/o Cdiff
- PEG tube
- ESRD on HD
- Multiple decub ulcers around rectum
- Paraplegia
- CVA
- DM
- Non verbal
- HTN
- CHF
Recommendations
- Serial H/H
- Iron panel suggestive of mix iron def with anemia of chronic disease.
- C/w Protonix 40mg IV BID and carafate
- Hold eliquis for now
- Infectious workup per ID appreciate recommendations
- He would be poor candidate for colonoscopy given chronic illness and difficulty prepping with multiple sacral decub
- Consider palliative care consult
Will follow with you
Subjective
Subjective
Date of Service: November 24, 2024
Nasal trumpet in place for diarrhea that is brown in color. Nonverbal
Objective
Data Reviewed
Laboratory Data:
Laboratory Results
11/24/24 05:19
11/24/24 12:23
Laboratory Results
PT 17.3 Sec (11.4-14.6) H 11/24/24 05:19
INR 1.38 11/24/24 05:19
Magnesium 2.4 mg/dl (1.6-2.3) H 11/23/24 05:33
Total Bilirubin 0.5 mg/dl (0.2-1.3) 11/22/24 15:30
AST 27 U/L (17-59) 11/22/24 15:30
ALT 16 U/L (0-50) 11/22/24 15:30
Alkaline Phosphatase 121 U/L (38-126) 11/22/24 15:30
Vital Signs and I&O:
Vital Signs
Temp Pulse Resp BP Pulse Ox
97.3 F 83 15 129/58 97
11/24/24 07:20 11/24/24 16:00 11/24/24 16:00 11/24/24 16:00 11/24/24 16:00
I&O
11/23/24 11/24/24 11/25/24
06:59 06:59 06:59
Intake Total 250 / 250
Balance 250 / 250
Physical Exam
Physical Exam
GEN: No acute distress, not conversant
HEENT: anicteric, extraocular movements intact, dry MMM
GI: soft, non-distended, not tender to palpation, PEG with minor redness around site
EXT: warm, well perfused, trace edema bilaterally
NEURO: AAOx3, non-focal
[2024-11-24 20:53] LABS: Hematocrit 23.9 % (39.0-52.0); Hemoglobin 7.5 g/dL (13.0-18.0)
[2024-11-25] VITALS (12 sets, daily range): BP systolic 104–169; BP diastolic 47–158
--- NOTE | 2024-11-25 05:03 | PTCARENOTE ---
Caring for pt overnight. No assessment changes. NSR. Q2T. rectal trumpet in place. Wounds CDI. Wellington in place. PEG tube, feedings still held. oral care. vss. will monitor.
[2024-11-25 05:58] LABS: Hematocrit 25.4 % (39.0-52.0); Hemoglobin 7.9 g/dL (13.0-18.0); Mean Corp Hgb Conc. 31.1 g/dL (33.0-37.0); Mean Corpuscular Volume 86.4 fL (80.0-94.0); Nucleated Red Blood Cells % 0 % (-); Platelet Count 327 10^3/uL (130-400); Red Cell Dist. Width 14.8 % (11.5-14.5)
[2024-11-25 06:24] LABS: Blood Urea Nitrogen 33 mg/dl (9-20); Calcium 8.7 mg/dl (8.4-10.2); Carbon Dioxide 21 mmol/L (22-30); Chloride 100 mmol/L (98-107); Estimated Creatinine Clearance 36 ml/min; Glucose 57 mg/dl (70-99); Potassium 4.4 mmol/L (3.5-5.1); Sodium 134 mmol/L (135-145); eGFR 33.66
--- NOTE | 2024-11-25 08:39 | W.PN.ID1 ---
Date of Service
Date of Service: November 25, 2024
Today's Communication
Continue meropenem.
Assessment / Plan
# MDR, ESBL-Klebsiella bacteremia 1 of 1 set bcx
# leukocytosis trending down
# s/p hypothermia
# s/p Blood loss anemia - possibly from UGIB
# Diarrhea -> C. diff neg.
# hx C. diff x 1 (august 2024)
# ESRD on HD
# CVA, paraplegia, bed bound, PEG on tube feed
- Repeat blood cx x 1 (off abx) negative to date.
- 2nd set bcx negative to date
- Continue meropenem 500 mg Iv q24 (d3 of 7)
- Continue C. diff prophylaxis with po Vancomycin 125mg daily while on systemic abx.
- Trend wbc.
- Continue Contact isolation
Conditions present on admission
CVA and paraplegia
Dysphagia status post PEG
Atrial fibrillation
HTN
End-stage renal disease on hemodialysis Friday via right IJ PermCath
GIB/erosive gastritis
C. diff x 1 (08/2024)
Chronic sacral decubitus wounds
Urinary retention with griffiths
Left upper extremity AV fistula placement
history of intra-abdominal abscess/necrotizing infection s/p exploratory laparotomy
Chief Complaint
-: Bacteremia
Subjective / Review of Systems
Resting comfortably.
Vital Signs / Physical Exam
Vital Signs
Vital Signs
Temp Pulse Resp BP Pulse Ox
98.3 F 83 16 134/63 98
11/25/24 08:15 11/25/24 06:00 11/25/24 06:00 11/25/24 06:00 11/25/24 06:00
Physical Exam
Constitutional: No Acute Distress and Chronically Ill
Cardiovascular: Regular Rate and S1/S2
Pulmonary: Clear
Gastrointestinal: Soft, Non Tender, Non Distended and Other (FMS dark brown liquid stool)
Genito-Urinary: Griffiths and Clear Urine; Negative CVA Tenderness
Objective Data
Lab Data
Lab Results
11/25/24 05:34
11/25/24 05:34
PT 17.3 Sec (11.4-14.6) H 11/24/24 05:19
INR 1.38 11/24/24 05:19
Estimated Creat Clear 36 ml/min 11/25/24 05:34
Total Bilirubin 0.5 mg/dl (0.2-1.3) 11/22/24 15:30
AST 27 U/L (17-59) 11/22/24 15:30
ALT 16 U/L (0-50) 11/22/24 15:30
Alkaline Phosphatase 121 U/L (38-126) 11/22/24 15:30
Most recent labs reviewed.
Micro Results:
11/22/24 15:30 Salmonella/Shigella Culture - Final
Feces/Stool No Salmonella, Shigella, Aeromonas or Plesiomonas species
isolated.
Campylobacter Culture - Final
No Campylobacter species isolated.
Shiga Toxin Test - Pending
11/22/24 15:29 Blood Culture - Preliminary
Blood/Venous Klebsiella pneumoniae-ESBL
Gram Stain - Final
11/23/24 05:33 Blood Culture - Preliminary
Blood/Venous No Growth in 48 hours- Final report to follow
11/23/24 22:49 Blood Culture - Preliminary
Blood/Venous No Growth in 24 hours- Final report to follow
11/23/24 04:44 MRSA Screen - Final
Nose No Methicillin Resistant Staphylococcus aureus isolated.
11/22/24 15:30 C. difficile GDH Antigen & Toxins - Final
Feces/Stool Negative for toxigenic C.difficile
11/23/24 CT a/p: Moderate small bowel wall thickening in the right abdomen.. New.
11/23/24 AXR: Nonspecific bowel gas pattern without signs of obstruction.
11/22/34 CXR: No acute cardiopulmonary process.
--- NOTE | 2024-11-25 09:12 | W.PN.GI.CBS2 ---
Today's Communication / Plan
-
OK to resume TF today
Unclear indication for eliquis and if that needs to be resumed or not. Given recurrent anemia and severe gastritis on EGD 11/03 may need to hold at minimum 1 wk
C/w PPI BID
GI will sign off please call for ?. He has OP FU with Dr Silvestre
Assessment / Plan
-
Jordon is an 59yo M detention resident with h/o paraplegia due to CVA s/p multiple PEGs last 05/2023 complicated by intra-abd abscess, ESRD on HD and recent Cdiff who was admitted for vomiting and worsening Hbg down to 6.8. He is not able to
provide history. Lavage of PEG with pink tinged fluid. He had recent admission 11/02-11/11 for similiar issues and EGD 11/03/24 with diffuse gastritis. Vitals stable exam chronically ill appearing, obese abd NTTP, RUQ with PEG tube minor erythema
surrounding. Labs reviewed Hbg 6.8 s/p 1 unit PRBC. CTAP IV oral contrast small bowel wall thickening in R abdomen, DC colitis, ? PNA, gallstones severe anasarca
Impression
- Positive blood cultures
- Acute on chronic anemia
Recent EGD 11/03 with diffuse gastritis
He also has sepsis and ESRD which may contribute to anemia as well
- Loose stools
- Recent h/o Cdiff
- PEG tube
- ESRD on HD
- Multiple decub ulcers around rectum
- Paraplegia
- CVA
- DM
- Non verbal
- HTN
- CHF
Recommendations
- Serial H/H thus far stable
- Iron panel suggestive of mix iron def with anemia of chronic disease.
- C/w Protonix 40mg IV BID and carafate
- Given recurrent anemia unclear if he should be resumed on anticoagulation/eliquis
- Infectious workup per ID appreciate recommendations
- He had recent EGD 11/03 with severe gastritis likely cause of intermittent anemia. He would be poor candidate for colonoscopy given chronic illness and difficulty prepping with multiple sacral decub and also brown stools
- Consider palliative care consult
Ok to resume TF today. GI will sign off please brooke lfor questions
Subjective
Subjective
Date of Service: November 25, 2024
No acute events overnight. Stools brown without blood. PEG tube without further output
Objective
Data Reviewed
Laboratory Data:
Laboratory Results
11/25/24 05:34
11/25/24 05:34
Laboratory Results
PT 17.3 Sec (11.4-14.6) H 11/24/24 05:19
INR 1.38 11/24/24 05:19
Magnesium 2.4 mg/dl (1.6-2.3) H 11/23/24 05:33
Total Bilirubin 0.5 mg/dl (0.2-1.3) 11/22/24 15:30
AST 27 U/L (17-59) 11/22/24 15:30
ALT 16 U/L (0-50) 11/22/24 15:30
Alkaline Phosphatase 121 U/L (38-126) 11/22/24 15:30
Vital Signs and I&O:
Vital Signs
Temp Pulse Resp BP Pulse Ox
98.3 F 83 16 134/63 98
11/25/24 08:15 11/25/24 06:00 11/25/24 06:00 11/25/24 06:00 11/25/24 06:00
I&O
11/24/24 11/25/24 11/26/24
06:59 06:59 06:59
Intake Total 250 / 250 290 / 290
Output Total 400 / 400
Balance 250 / 250 -110 / -110
Physical Exam
Physical Exam
GEN: No acute distress, confused non verbal
HEENT: anicteric, extraocular movements intact
GI: soft, non-distended, not tender to palpation, PEG in LUQ c/d/i flushing well. large abd scar seen
EXT: warm, well perfused, 2+ edema bilaterally
NEURO: non focal
--- NOTE | 2024-11-25 10:09 | PN.CDI ---
CDI
- -
CDI:
Physician Documentation Request
Admit Date: 11/22/24 19:17
Dear Doctor Darlene,
Please review the following and provide your response in the progress notes.
Clinical Indicators:
Pt admitted for Acute hypotension due to volume depletion from diarrhea.
Laboratory Tests
11/22/24 11/24/24
15:30 12:23
Sodium 131 L 130 L
Based on the above, could you clarify in the progress notes, the appropriate diagnosis, if significant, that supports the above lab abnormalities and additional evaluation, monitoring and/or treatment rendered:
Hyponatremia
Insignificant abnormal lab values
Other
Use of terms such as suspected, likely, concern for, or probable (associated with a specific diagnosis that is being evaluated, monitored, or treated as if it exists) are acceptable and can be coded in the inpatient setting, when documented at the
time of discharge.
Thank you,
Elana Adler RN, BSN
CDI Specialist
[place] [facility]
Please use your independent medical judgment in providing your response.
[2024-11-25] MEDS: TYLENOL 650 MG TUBE (10:16)
[2024-11-25] MEDS: CARAFATE SUSPENSION 1 GM TUBE ×2 (10:17→19:57)
[2024-11-25] MEDS: ZYLOPRIM 100 MG TUBE (10:17)
[2024-11-25] MEDS: ZOLOFT 25 MG TUBE (10:17)
[2024-11-25] MEDS: FIRVANQ 125 MG TUBE (10:17)
[2024-11-25] MEDS: PROTONIX IV 40 MG IV ×2 (10:18→19:57)
--- NOTE | 2024-11-25 10:18 | PN.CDI ---
CDI
- -
CDI:
Physician Documentation Request
Admit Date: 11/22/24 19:17
Dear Doctor Darlene,
Please review the following and provide your response in the progress notes.
Clinical Indicators:
Pt admitted with hematemesis and hypotension due to volume depletion from diarrhea.
11/22 H&P: ' Patient has past medical history of CVA, bedbound status, paraplegia, nonverbal, dysphagia requiring PEG tube'
11/23 Case Management Note: ' Teresa from [facility] confirmed that patient is LTC there, would like an auth if possible for return, and shared that he is total care..'
RN Assessments notes pt. to be completely immobile, contracted bilateral hand fingers, elbows, knees toes, and foot drop; absence of body movements
Please provide further specificity as noted below:
Paraparesis/Paraplegia Quadriparesis/Quadriplegia
Type Type
Complete Complete
Incomplete Incomplete
Unable to Determine Unable to determine
Etiology Level
CVA, cerebral palsy, C1-C4
injury, etc. C5-C7
Unable to determine
Etiology
CVA, cerebral palsy,
injury, etc.
Functional quadriplegia
complete immobility due
severe physical
disability or frailty
Functional Quadriplegia
Quadriplegia
Paraplegia Only
Other
Use of terms such as suspected, likely, concern for, or probable (associated with a specific diagnosis that is being evaluated, monitored, or treated as if it exists) are acceptable and can be coded in the inpatient setting, when documented at the
time of discharge.
Thank you,
Elana Adler RN, BSN
CDI Specialist
[place] [facility]
Please use your independent medical judgment in providing your response.
[2024-11-25] MEDS: NSS (PRESERVATIVE FREE) 10 ML IV ×2 (10:20→19:57)
--- NOTE | 2024-11-25 11:43 | PN.CDI ---
CDI
- -
CDI:
Physician Documentation Request
Admit Date: 11/22/24 19:17
Dear Doctor Darlene,
Please review the following and provide your response in the progress notes.
Clinical Indicators:
Pt admitted with hematemesis and hypotension due to volume depletion from diarrhea.
11/24 Progress Note: ' #MDR, ESBL-Klebsiella bacteremia
#Leukocytosis'
11/25 GI: ' Impression:
- Positive blood cultures
- Acute on chronic anemia
Recent EGD 11/03 with diffuse gastritis
He also has sepsis and ESRD which may contribute to anemia as well'
Selected Entries
11/23/24
07:20 11/23/24
09:09
Temp 96.6 F L 96.6 F L
Laboratory Tests
11/22/24 11/23/24 11/24/24
15:30 05:33 05:19
WBC 13.3 H 16.5 H 16.8 H
Please clarify which of the following most accurately describes the status of the patient's infection:
Sepsis
- Systemic manifestations of infection, with 2 or more SIRS criteria which include:
- Fever >100.9 degrees F or hypothermia < 96.8 degrees F
- Leukocytosis - WBC > 12,000 or leukopenia - WBC < 4,000 or > 10% bands
- Tachycardia > 90 beats per minute
- Tachypnea - RR > 20 breaths per minute or PaCO2 , 32mmHg
Source: Merck Manual 2012
- Indicate the known or suspected organism
- Indicate if a suspected bacterial infection of unknown source
Bacteremia Only
Other
Use of terms such as suspected, likely, concern for, or probable (associated with a specific diagnosis that is being evaluated, monitored, or treated as if it exists) are acceptable and can be coded in the inpatient setting, when documented at the
time of discharge.
Thank you,
Elana Adler RN, BSN
CDI Specialist
[place] [employer]
Please use your independent medical judgment in providing your response.
--- NOTE | 2024-11-25 11:58 | W.PN.NEPH.PH ---
Today's Communication / Plan
-
Dialysis tomorrow
Assessment/Plan
-
IMP:
Acute blood loss anemia 2/2 GIB on anemia of chronic disease 2/2 ESRD
Diarrhea
Hx of recent C.diff
Leukocytosis
ESRD on HD-MWF [facility]
left UE AVF
right chest wall catheter
Mild hypokalemia
Dysphagia on PEG
Hx of CVA with residual aphasia and paraplegia
Urine retention
NIDDM
Plan:
No acute requirement for dialysis today based on volume status or electrolyte status
Dialysis will be provided for tomorrow
Blood products to be provided as necessary for anemia, NIVIA support will be provided as well as IV iron if needed
Currently hemodynamically stable
-
-
Date of Service: November 25, 2024
CC / HPI / ROS
-
Chief Complaint:
Diarrhea blood loss
History of Present Illness:
ESRD chronic
Review of Systems:
Nonverbal
Labs
-
Labs:
WBC 12.5 10^3/uL (4.8-10.8) H 11/25/24 05:34
RBC 2.94 10^6/uL (4.70-6.10) L 11/25/24 05:34
Hgb 7.9 g/dL (13.0-18.0) L 11/25/24 05:34
Hct 25.4 % (39.0-52.0) L 11/25/24 05:34
Plt Count 327 10^3/uL (130-400) 11/25/24 05:34
Sodium 134 mmol/L (135-145) L 11/25/24 05:34
Potassium 4.4 mmol/L (3.5-5.1) 11/25/24 05:34
Chloride 100 mmol/L (98-107) 11/25/24 05:34
Carbon Dioxide 21 mmol/L (22-30) L 11/25/24 05:34
BUN 33 mg/dl (9-20) H 11/25/24 05:34
Creatinine 2.2 mg/dL (0.7-1.3) H 11/25/24 05:34
eGFR 33.66 11/25/24 05:34
Glucose 57 mg/dl (70-99) L 11/25/24 05:34
Calcium 8.7 mg/dl (8.4-10.2) 11/25/24 05:34
Albumin 3.0 g/dl (3.5-5.0) L 11/22/24 15:30
Physical Exam
-
Vital Signs:
Vital Signs
Temp Pulse Resp BP Pulse Ox
97.4 F 91 37 133/59 100
11/25/24 10:54 11/25/24 10:00 11/25/24 10:00 11/25/24 10:00 11/25/24 10:00
Cardiovascular:: Regular rate and rhythm
Respiratory:: Bilateral: Coarse
Lung Excursion:: Normal
Abdomen:: Nontender and Soft
Bowel Sounds:: Normal
Extremity Edema:: None: Bilateral:
Wellington Catheter: Yes
--- NOTE | 2024-11-25 12:30 | W.PN.HOSP.TC ---
Today's Communication/Plan
-
See plan
Assessment / Plan
Assessment / Plan
Physical Exam
General: No Apparent Distress
Respiratory: Clear to Auscultation
Cardiac: S1 and S2. Regular Rhythm
GI: Soft, Nontender and Nondistended. Positive bowel sounds.
Skin: Warm
Neuro: Awake and Alert
Psych: Calm
Assessment/Plan
59-year-old male past medical history of CVA, nonverbal, paraplegia (bedbound status), dysphagia with PEG tube, history of tracheostomy status post removal, ESRD on dialysis Friday, sick on Friday, chronic iron deficiency anemia, history of GI
bleeding/erosive gastritis this month, paroxysmal atrial fibrillation, cholelithiasis, chronic sacral/ischial wounds presented with vomiting blood at [facility]. He was recently admitted from 11/02/24 to 11/11/24 for GI bleeding requiring
2 units of blood transfusion. Had EGD which was obscured by tube feeds but suspected erosive gastritis. He was treated with Protonix and Carafate. PEG tube recommend to be changed in 3 to 4 weeks. Also had urinary retention Wellington catheter
difficulty placed due to phimosis. He was C. difficile antigen positive, toxin negative and treated with prophylactic oral vancomycin for chronic diarrhea. Vital signs show blood pressure of 82/46. He was covered with brown watery diarrhea up to
his back. ER reportedly notes blood aspirated from PEG tube although no evidence currently. Labs shoed leukocytosis. Hemoglobin of 8.8 from 8.2 on discharge. Heme test negative. Patient with possible hematemesis and bleeding from PEG tube.
Patient here with SIRS positive, volume depletion from diarrhea unclear if this is due to persistent C. difficile. Check stool culture, C. difficile.
#Acute hypotension due to volume depletion from diarrhea
-Resolved after IV fluids given
#Diarrhea
#Chronic loose stool 3-4 per day
#History of recent C.diff
#History of C. difficile PCR positive toxin negative
Last admission, Metamucil and Imodium with continued evaluation for need to stop
He was treated for C. difficile for toxin negative antigen positive -- stool C.diff PCR positive and toxin neg -- frequency of PO Vancomycin was reduced to help with patient's diarrhea which in turn can be affecting patient's wounds -- continue C.
diff prophylaxis po vancomycin to 125mg daily (as below)
Rectal tube taken out on 11/08/24 as tube risk for irritation with continued use and SNF needs out prior to transfer -- so plan was to use external pouch if needed
Follow stool studies -- negative for toxigenic C. diff this admission
Eventual outpatient follow-up with Dr. Silvestre
-I spoke with GI Dr. Bruce on 11/25/24, and she recommended checking echocardiogram since it is suspected that diarrhea is from gut wall edema
#Sepsis, POA
#MDR, ESBL-Klebsiella bacteremia
#Leukocytosis
-Follow repeat blood cultures
-Continue Merrem (Day 3)
-C. diff prophylaxis with po Vancomycin 125mg daily while on systemic abx.
#Chronic bedbound status causing decubitus wounds
#Sacral/ischial decub wounds stage II, ischial wound stage I or II close proximity rectal area
#Extensive history of sacral wound mgmt in [facility]
-Last admission: given concern for stool contaminating patient's wound in close proximity to his rectal area, consulted colorectal surgery for possible colostomy bag -- but patient is too high risk for surgery with extremely high risk for
complications -- colorectal surgeon spoke with patient's , mentioned that it would be technically challenging due to his prior surgeries, which limit options for ostomy locations. At this time, patient's is not interested in colostomy with
these risks in mind.
-Would have preferred to avoid replacement of rectal tube as a rectal tube for prolonged period will also cause decubitus ulcers and wounds
-Patient was on C. difficile prophylaxis with oral vancomycin 125 daily through 11/18/2024 --- Probiotic and recently reduced (on 11/09/24) frequency of PO Vancomycin to daily prophylaxis to see whether that helps with diarrhea
-Continue Merrem and PO Vancomycin prophylaxis
-Consult wound care
#Recent severe erosive gastritis(no H. pylori on recent path)
#Recent GI bleed secondary to blood loss anemia and anemia chronic disease secondary to ESRD-received 2 units of PRBCs on recent admission
#Yes, hematemesis is associated with/exacerbated by Eliquis.
Reportedly vomited blood at [facility]
Was seen by GI recently with recommended upper Endo 1.75 months to check healing severity of gastritis and inability to see stomach
under white coating question tube feeds
Will need PEG tube replacement 2 to 3 weeks-per prior GI recommendations
-Continue to monitor Hgb
-Continue IV Protonix BID and Carafate
-Continue PRBC transfusions as needed
-Likely would be poor candidate for colonoscopy given chronic illness and difficulty prepping with multiple sacral decub and also brown stools
#History of A-fib on Eliquis
-Hold Eliquis -- will hold through 11/30/24 as per GI recommendations, and can then consider resuming at lower dose of Eliquis 2.5 mg BID
#Recent acute Urinary retention(2liters) required Wellington catheter on discharge
#Acute urinary retention
#Phimosis
#Difficult Wellington Catheter
-Patient has difficult Wellington catheter insertion/history of phimosis
-Unable to use Flomax or finasteride as they cannot be crushed and PEG tube
#ESRD on HD Friday via right IJ permacath
#New 1-month-old old left upper extremity AV fistula
-Appreciate nephrology
-Dialysis as per nephrology
#Hyponatremia
-Continue to monitor BMP
#Recent Hypophosphatemia
#History of CVA with residual aphasia, dysphagia paraplegia
#Patient nonverbal due to CVA
#History of dysphagia due to CVA on current PEG tube
- Resume tube feeds as per GI -- see dietitian notes for tube feed recommendations when resuming tube feeds
#History of trach with removal
#Anxiety history
Continue Zoloft 25 mg via G-tube
<Continue lorazepam 0.5 mg twice daily as needed anxiety hold SBP<110
#History of ALP elevation
#mild relative left-sided 'bulging' of the intestinal tract
atrophy of the rectus abdominis musculature
#Dysphagia
on PEG
Holding tube feeding diet as above
#History of CVA with residual aphasia and paraplegia only
#Nonverbal
-Hold Eliquis for now
#History of Trach
-Previously removed
#Recent History of Bilateral atelectasis secondary to bedbound status
2/2 bedbound status
-cannot follow instruction for IS appropriately
#Asymptomatic cholelithiasis
#Hepatosplenomegaly
-Outpatient follow up
On 11/25/24, I spoke extensively over the phone with patient's Key, and I discussed patient's guarded prognosis and current medical condition and management. I answered all of her questions and concerns to satisfaction. Key stated patient
would want to be Full Code.
Total time spent on caring for the patient today, including chart review, seeing and examining the patient, communicating with specialists, documentation, placing orders and speaking with patient's , was 75 minutes.
Anticipated Discharge: > 48 hours
Subjective/Interval History
-
Date of Service: November 25, 2024
Patient was seen and examined. He appeared to be resting comfortably.
Objective Data
-
Labs:
Laboratory Results
11/25/24
05:34
WBC 12.5 H
Hgb 7.9 L
Hct 25.4 L
Plt Count 327
Sodium 134 L
Potassium 4.4
Chloride 100
Carbon Dioxide 21 L
BUN 33 H
Creatinine 2.2 H
Glucose 57 L
Calcium 8.7
Vital Signs:
Vital Signs
Temp Pulse Resp BP Pulse Ox
97.4 F 91 37 133/59 100
11/25/24 10:54 11/25/24 10:00 11/25/24 10:00 11/25/24 10:00 11/25/24 10:00
I&O
11/24/24 11/25/24 11/26/24
06:59 06:59 06:59
Intake Total 250 / 250 290 / 290
Output Total 400 / 400
Balance 250 / 250 -110 / -110
[2024-11-25] MEDS: STERILE WATER FOR INJECTION 10 ML IV (14:54)
[2024-11-25] MEDS: MERREM 500 MG IV (14:54)
[2024-11-25] MEDS: METAMUCIL, KONSYL 1 PACKET TUBE (14:55)
[2024-11-25] MEDS: DAKIN'S SOLUTION 0.125% 1/4 STRENGTH 15 ML TOPICAL (14:56)
[2024-11-25] MEDS: FLUSH (NSS) 1 FLUSH IV (15:02)
--- NOTE | 2024-11-25 18:45 | PTCARENOTE ---
Started TF Nepro carb steady at 20 mls/hr at 16:00 with 25mls/hr flush. Feed to be advanced by 20 mls every 8HR until goal of 55mls. Patient tolerating. Denies any abdominal pain, N/V. Wound care completed by deputy director of nursing today.
[2024-11-26] VITALS (30 sets, daily range): BP systolic 112–176; BP diastolic 53–90; BMI 27.0
--- NOTE | 2024-11-26 00:31 | PTCARENOTE ---
Caring for pt overnight. no assessment changes. NSR on monitor, remains RA. Q2T. RT became dislodged & replaced. Sacral & ishium dressings changed per order. Tube feed is running, increasing slowly, currently at 40ml/hr with 25ml flush. meds through
tube. Pt nonverbal but nods appropriately. Mouth care complete. Will monitor.
[2024-11-26 06:00] LABS: Blood Urea Nitrogen 39 mg/dl (9-20); Calcium 8.5 mg/dl (8.4-10.2); Carbon Dioxide 24 mmol/L (22-30); Chloride 100 mmol/L (98-107); Estimated Creatinine Clearance 27 ml/min; Glucose 93 mg/dl (70-99); Potassium 4.1 mmol/L (3.5-5.1); Sodium 134 mmol/L (135-145); eGFR 24.16
[2024-11-26 06:06] LABS: Hematocrit 24.3 % (39.0-52.0); Hemoglobin 7.4 g/dL (13.0-18.0); Mean Corp Hgb Conc. 30.5 g/dL (33.0-37.0); Mean Corpuscular Volume 86.2 fL (80.0-94.0); Nucleated Red Blood Cells % 0 % (-); Platelet Count 410 10^3/uL (130-400); Red Cell Dist. Width 14.8 % (11.5-14.5)
--- NOTE | 2024-11-26 07:30 | PTCARENOTE ---
Received patient nonverbal, nod/shake head for simple questions, on RA, NSR, BP WNL, PEG @6cm infusing TF, tolerating towards goal rate, GI w/ rectal trumpet, loose brown stool, w/ Chronic Wellington, oliguric, pending iHD today.
[2024-11-26] MEDS: NSS (PRESERVATIVE FREE) 10 ML IV ×2 (07:51→19:54)
[2024-11-26] MEDS: PROTONIX IV 40 MG IV ×2 (07:51→19:54)
[2024-11-26] MEDS: ZYLOPRIM 100 MG TUBE (07:52)
[2024-11-26] MEDS: ZOLOFT 25 MG TUBE (07:52)
[2024-11-26] MEDS: METAMUCIL, KONSYL 1 PACKET TUBE (07:52)
[2024-11-26] MEDS: TYLENOL 650 MG TUBE (07:52)
[2024-11-26] MEDS: DAKIN'S SOLUTION 0.125% 1/4 STRENGTH 473 ML TOPICAL (07:52)
[2024-11-26] MEDS: FIRVANQ 125 MG TUBE (07:52)
[2024-11-26] MEDS: CARAFATE SUSPENSION 1 GM TUBE ×2 (07:52→19:54)
--- NOTE | 2024-11-26 08:44 | W.PN.NEPH.HD ---
Assessment
-
Patient seen on dialysis
Systolic blood pressure 160 at current U/F
Progress Note - Hemodialysis
-
Date of Service: November 26, 2024
Duration: 15 minutes and 3 hours
Potassium Bath: 3
Calcium Bath: 2.5
Opti-Dialyzer: 160
Ultrafiltration: Other
Blood Flow: 400
Dialysate Flow: 600
Heparin: none
EPO: 10K
[2024-11-26] MEDS: RETACRIT 10000 UNITS IV (09:08)
[2024-11-26 10:24] LABS: Hepatitis B Surface Antigen Negative (Negative)
[2024-11-26] MEDS: HEPARIN 3600 UNITS INTRACATH (11:09)
--- NOTE | 2024-11-26 11:15 | PTCARENOTE ---
Patient completed and tolerated Intermittent Hemodialysis session, no acute events, VSS, removed 1500mL.
--- NOTE | 2024-11-26 13:14 | W.PN.ID1 ---
Date of Service
Date of Service: November 26, 2024
Today's Communication
Continue meropenem 500 mg Iv q24 (d4 of 7)
Assessment / Plan
# MDR, ESBL-Klebsiella bacteremia 1 of 1 set bcx, source unclear
# leukocytosis
# s/p hypothermia
# s/p Blood loss anemia - possibly from UGIB
# Diarrhea -> C. diff neg.
# hx C. diff x 1 (august 2024)
# ESRD on HD
# CVA, paraplegia, bed bound, PEG on tube feed
# Chronic sacral wounds
- Repeat blood cx x 1 (off abx) negative to date.
- 2nd set bcx negative to date
- Continue meropenem 500 mg Iv q24 (d4 of 7)
- Continue C. diff prophylaxis with po Vancomycin 125mg daily while on systemic abx.
- Trend wbc.
- Continue Contact isolation
- Keep stool away from sacral wounds.
Conditions present on admission
CVA and paraplegia
Dysphagia status post PEG
Atrial fibrillation
HTN
End-stage renal disease on hemodialysis Friday via right IJ PermCath
GIB/erosive gastritis
C. diff x 1 (08/2024)
Chronic sacral decubitus wounds
Urinary retention with griffiths
Left upper extremity AV fistula placement
history of intra-abdominal abscess/necrotizing infection s/p exploratory laparotomy
Chief Complaint
-: Bacteremia
Subjective / Review of Systems
Nods OK.
Vital Signs / Physical Exam
Vital Signs
Vital Signs
Temp Pulse Resp BP Pulse Ox
97.9 F 73 64 139/65 99
11/26/24 07:51 11/26/24 06:00 11/26/24 06:00 11/26/24 06:00 11/26/24 06:00
Physical Exam
Constitutional: No Acute Distress and Chronically Ill
Cardiovascular: Regular Rate and S1/S2
Pulmonary: Clear
Gastrointestinal: Soft, Non Tender, Non Distended and Other (FMS light brown stool)
Genito-Urinary: Griffiths and Clear Urine; Negative CVA Tenderness
Neurological: Awake and Alert
Objective Data
Lab Data
Lab Results
11/26/24 05:08
11/26/24 05:08
PT 17.3 Sec (11.4-14.6) H 11/24/24 05:19
INR 1.38 11/24/24 05:19
Estimated Creat Clear 27 ml/min 11/26/24 05:08
Total Bilirubin 0.5 mg/dl (0.2-1.3) 11/22/24 15:30
AST 27 U/L (17-59) 11/22/24 15:30
ALT 16 U/L (0-50) 11/22/24 15:30
Alkaline Phosphatase 121 U/L (38-126) 11/22/24 15:30
Most recent labs reviewed.
Micro Results:
11/23/24 05:33 Blood Culture - Preliminary
Blood/Venous No Growth in 72 hours- Final report to follow
11/23/24 22:49 Blood Culture - Preliminary
Blood/Venous No Growth in 48 hours- Final report to follow
11/22/24 15:29 Blood Culture - Final
Blood/Venous Klebsiella pneumoniae-ESBL
Gram Stain - Final
11/22/24 15:30 Salmonella/Shigella Culture - Final
Feces/Stool No Salmonella, Shigella, Aeromonas or Plesiomonas species
isolated.
Campylobacter Culture - Final
No Campylobacter species isolated.
Shiga Toxin Test - Final
No E. coli Shiga Toxin 1 or 2 detected.
11/23/24 04:44 MRSA Screen - Final
Nose No Methicillin Resistant Staphylococcus aureus isolated.
11/22/24 15:30 C. difficile GDH Antigen & Toxins - Final
Feces/Stool Negative for toxigenic C.difficile
11/23/24 CT a/p: Moderate small bowel wall thickening in the right abdomen.. New.
11/23/24 AXR: Nonspecific bowel gas pattern without signs of obstruction.
11/22/34 CXR: No acute cardiopulmonary process.
[2024-11-26] MEDS: STERILE WATER FOR INJECTION 10 ML IV (13:23)
[2024-11-26] MEDS: MERREM 500 MG IV (13:24)
--- NOTE | 2024-11-26 16:22 | CM ---
Following up on Patient. Sig Other Key asked if she can have POA paperwork faxed because she wants to access patient's medical portal. EVGENY Sullivan was give the fax number for Medical Records and provided it to her.
Then Key asked if the patient can be transferred to another LTC facility. EVGENY Sullivan is already aware from Teresa at [facility] that she might and that her SW has tried many facilities who can provide HD who all have declined him.
EVGENY Sullivan informed Key that [facility] can send out referral to placed in [facility] ([facility] tried all the [place] ones) and if they can accept him then [facility] can go for auth to transfer, but if they decline, then the patient has
to go back to [facility].
The places sent to are:
[facility]
These are in [facility]. The facilities that have declined him in [facility] is:
[place]
[facility]
[place].
Sig Other aware of the locations via phone this afternoon and she was thankful.
PLAN: Return to [facility] if another SNF is not available.
--- NOTE | 2024-11-26 16:26 | W.PN.HOSP.TC ---
Today's Communication/Plan
-
Continue antibiotics
See plan
Assessment / Plan
Assessment / Plan
Physical Exam
General: No Apparent Distress
Respiratory: Clear to Auscultation
Cardiac: S1 and S2. Regular Rhythm
GI: Soft, Nontender and Nondistended. Positive bowel sounds.
Skin: Warm
Neuro: Awake and Alert
Psych: Calm
Assessment/Plan
59-year-old male past medical history of CVA, nonverbal, paraplegia (bedbound status), dysphagia with PEG tube, history of tracheostomy status post removal, ESRD on dialysis Friday, sick on Friday, chronic iron deficiency anemia, history of GI
bleeding/erosive gastritis this month, paroxysmal atrial fibrillation, cholelithiasis, chronic sacral/ischial wounds presented with vomiting blood at [facility]. He was recently admitted from 11/02/24 to 11/11/24 for GI bleeding requiring
2 units of blood transfusion. Had EGD which was obscured by tube feeds but suspected erosive gastritis. He was treated with Protonix and Carafate. PEG tube recommend to be changed in 3 to 4 weeks. Also had urinary retention Wellington catheter
difficulty placed due to phimosis. He was C. difficile antigen positive, toxin negative and treated with prophylactic oral vancomycin for chronic diarrhea. Vital signs show blood pressure of 82/46. He was covered with brown watery diarrhea up to
his back. ER reportedly notes blood aspirated from PEG tube although no evidence currently. Labs shoed leukocytosis. Hemoglobin of 8.8 from 8.2 on discharge. Heme test negative. Patient with possible hematemesis and bleeding from PEG tube.
Patient here with SIRS positive, volume depletion from diarrhea unclear if this is due to persistent C. difficile. Check stool culture, C. difficile.
#Acute hypotension due to volume depletion from diarrhea
-Resolved after IV fluids given
#Diarrhea
#Chronic loose stool 3-4 per day
#History of recent C.diff
#History of C. difficile PCR positive toxin negative
Last admission, Metamucil and Imodium with continued evaluation for need to stop
He was treated for C. difficile for toxin negative antigen positive -- stool C.diff PCR positive and toxin neg -- frequency of PO Vancomycin was reduced to help with patient's diarrhea which in turn can be affecting patient's wounds -- continue C.
diff prophylaxis po vancomycin to 125mg daily (as below)
Rectal tube taken out on 11/08/24 as tube risk for irritation with continued use and SNF needs out prior to transfer -- so plan was to use external pouch if needed
Follow stool studies -- negative for toxigenic C. diff this admission
Eventual outpatient follow-up with Dr. Silvestre
-I spoke with GI Dr. Bruce on 11/25/24, and she recommended checking echocardiogram since it is suspected that diarrhea is from gut wall edema -- but echo 11/26/24 was unremarkable
#Sepsis, POA
#MDR, ESBL-Klebsiella bacteremia
#Leukocytosis
-Follow repeat blood cultures
-Continue Merrem (Day 4)
-C. diff prophylaxis with po Vancomycin 125mg daily while on systemic abx.
-Avoid stool contamination of sacral wounds
#Chronic bedbound status causing decubitus wounds
#Sacral/ischial decub wounds stage II, ischial wound stage I or II close proximity rectal area
#Extensive history of sacral wound mgmt in [facility]
-Last admission: given concern for stool contaminating patient's wound in close proximity to his rectal area, consulted colorectal surgery for possible colostomy bag -- but patient is too high risk for surgery with extremely high risk for
complications -- colorectal surgeon spoke with patient's , mentioned that it would be technically challenging due to his prior surgeries, which limit options for ostomy locations. At this time, patient's is not interested in colostomy with
these risks in mind.
-Would have preferred to avoid replacement of rectal tube as a rectal tube for prolonged period will also cause decubitus ulcers and wounds
-Patient was on C. difficile prophylaxis with oral vancomycin 125 daily through 11/18/2024 --- Probiotic and recently reduced (on 11/09/24) frequency of PO Vancomycin to daily prophylaxis to see whether that helps with diarrhea
-Continue Merrem and PO Vancomycin prophylaxis
-Consult wound care
#Recent severe erosive gastritis(no H. pylori on recent path)
#Recent GI bleed secondary to blood loss anemia and anemia chronic disease secondary to ESRD-received 2 units of PRBCs on recent admission
#Yes, hematemesis is associated with/exacerbated by Eliquis.
Reportedly vomited blood at [facility]
Was seen by GI recently with recommended upper Endo 1.75 months to check healing severity of gastritis and inability to see stomach
under white coating question tube feeds
Will need PEG tube replacement 2 to 3 weeks-per prior GI recommendations
-Continue to monitor Hgb
-Continue IV Protonix BID and Carafate
-Continue PRBC transfusions as needed
-Likely would be poor candidate for colonoscopy given chronic illness and difficulty prepping with multiple sacral decub and also brown stools
#History of A-fib on Eliquis
-Hold Eliquis -- will hold through 11/30/24 as per GI recommendations, and can then consider resuming at lower dose of Eliquis 2.5 mg BID
#Recent acute Urinary retention(2liters) required Wellington catheter on discharge
#Acute urinary retention
#Phimosis
#Difficult Wellington Catheter
-Patient has difficult Wellington catheter insertion/history of phimosis
-Unable to use Flomax or finasteride as they cannot be crushed and PEG tube
#ESRD on HD Friday via right IJ permacath
#New 1-month-old old left upper extremity AV fistula
-Appreciate nephrology
-Dialysis as per nephrology
#Hyponatremia
-Continue to monitor BMP
#Recent Hypophosphatemia
#History of CVA with residual aphasia, dysphagia paraplegia
#Patient nonverbal due to CVA
#History of dysphagia due to CVA on current PEG tube
- Resume tube feeds as per GI -- see dietitian notes for tube feed recommendations when resuming tube feeds
#History of trach with removal
#Anxiety history
Continue Zoloft 25 mg via G-tube
<Continue lorazepam 0.5 mg twice daily as needed anxiety hold SBP<110
#History of ALP elevation
#mild relative left-sided 'bulging' of the intestinal tract
atrophy of the rectus abdominis musculature
#Dysphagia
on PEG
Holding tube feeding diet as above
#History of CVA with residual aphasia and paraplegia only
#Nonverbal
-Hold Eliquis for now
#History of Trach
-Previously removed
#Recent History of Bilateral atelectasis secondary to bedbound status
2/2 bedbound status
-cannot follow instruction for IS appropriately
#Asymptomatic cholelithiasis
#Hepatosplenomegaly
-Outpatient follow up
On 11/25/24, I spoke extensively over the phone with patient's Key, and I discussed patient's guarded prognosis and current medical condition and management. I answered all of her questions and concerns to satisfaction. Key stated patient
would want to be Full Code.
Anticipated Discharge: > 48 hours
Subjective/Interval History
-
Date of Service: November 26, 2024
Patient was seen and examined. He looked more alert today.
Objective Data
-
Labs:
Laboratory Results
11/26/24
05:08
WBC 13.1 H
Hgb 7.4 L
Hct 24.3 L
Plt Count 410 H D
Sodium 134 L
Potassium 4.1
Chloride 100
Carbon Dioxide 24
BUN 39 H
Creatinine 2.9 H
Glucose 93
Calcium 8.5
Vital Signs:
Vital Signs
Temp Pulse Resp BP Pulse Ox
98 F 82 22 162/73 100
11/26/24 15:15 11/26/24 14:00 11/26/24 14:00 11/26/24 14:00 11/26/24 14:00
I&O
11/25/24 11/26/24 11/27/24
06:59 06:59 06:59
Intake Total 290 / 290 235 / 300 625 / 625
Output Total 400 / 400 110 / 110
Balance -110 / -110 125 / 190 625 / 625
[2024-11-26] MEDS: ATIVAN 0.5 MG TUBE (18:08)
[2024-11-27] VITALS (12 sets, daily range): BP systolic 118–156; BP diastolic 58–100; BMI 26.8
[2024-11-27 05:25] LABS: Hematocrit 24.5 % (39.0-52.0); Hemoglobin 7.4 g/dL (13.0-18.0); Mean Corp Hgb Conc. 30.2 g/dL (33.0-37.0); Mean Corpuscular Volume 87.2 fL (80.0-94.0); Nucleated Red Blood Cells % 0 % (-); Platelet Count 422 10^3/uL (130-400); Red Cell Dist. Width 15.2 % (11.5-14.5)
[2024-11-27 05:45] LABS: Blood Urea Nitrogen 25 mg/dl (9-20); Calcium 8.5 mg/dl (8.4-10.2); Carbon Dioxide 30 mmol/L (22-30); Chloride 99 mmol/L (98-107); Estimated Creatinine Clearance 38 ml/min; Glucose 188 mg/dl (70-99); Potassium 3.4 mmol/L (3.5-5.1); Sodium 134 mmol/L (135-145); eGFR 35.59
--- NOTE | 2024-11-27 07:43 | W.PN.NEPH.PH ---
Today's Communication / Plan
-
HD friday
Assessment/Plan
-
IMP:
Acute blood loss anemia 2/2 GIB on anemia of chronic disease 2/2 ESRD
Diarrhea
Hx of recent C.diff
Leukocytosis
ESRD on HD-MWF [facility]
left UE AVF
right chest wall catheter
Mild hypokalemia
Dysphagia on PEG
Hx of CVA with residual aphasia and paraplegia
Urine retention
NIDDM
Plan:
dialysis friday
remains on Meropenem
Blood products to be provided as necessary for anemia, NIVIA support will be provided as well as IV iron if needed
Currently hemodynamically stable
-
-
Date of Service: November 27, 2024
CC / HPI / ROS
-
Chief Complaint:
Diarrhea blood loss
History of Present Illness:
ESRD chronic MWF
on antibiotics for ESBL bacteremia
Review of Systems:
Nonverbal
Labs
-
Labs:
WBC 11.7 10^3/uL (4.8-10.8) H 11/27/24 05:09
RBC 2.81 10^6/uL (4.70-6.10) L 11/27/24 05:09
Hgb 7.4 g/dL (13.0-18.0) L 11/27/24 05:09
Hct 24.5 % (39.0-52.0) L 11/27/24 05:09
Plt Count 422 10^3/uL (130-400) H 11/27/24 05:09
Sodium 134 mmol/L (135-145) L 11/27/24 05:09
Potassium 3.4 mmol/L (3.5-5.1) L 11/27/24 05:09
Chloride 99 mmol/L (98-107) 11/27/24 05:09
Carbon Dioxide 30 mmol/L (22-30) 11/27/24 05:09
BUN 25 mg/dl (9-20) H 11/27/24 05:09
Creatinine 2.1 mg/dL (0.7-1.3) H 11/27/24 05:09
eGFR 35.59 11/27/24 05:09
Glucose 188 mg/dl (70-99) H 11/27/24 05:09
Calcium 8.5 mg/dl (8.4-10.2) 11/27/24 05:09
Albumin 3.0 g/dl (3.5-5.0) L 11/22/24 15:30
Physical Exam
-
Vital Signs:
Vital Signs
Temp Pulse Resp BP Pulse Ox
97.6 F 76 21 125/58 99
11/27/24 03:15 11/27/24 06:00 11/27/24 06:00 11/27/24 06:00 11/27/24 06:00
Cardiovascular:: Regular rate and rhythm
Respiratory:: Bilateral: Coarse
Lung Excursion:: Normal
Abdomen:: Nontender and Soft
Bowel Sounds:: Normal
Extremity Edema:: None: Bilateral:
Wellington Catheter: Yes
[2024-11-27] MEDS: ZOLOFT 25 MG TUBE (08:18)
[2024-11-27] MEDS: FIRVANQ 125 MG TUBE (08:18)
[2024-11-27] MEDS: TYLENOL 650 MG TUBE (08:18)
[2024-11-27] MEDS: CARAFATE SUSPENSION 1 GM TUBE ×2 (08:18→21:01)
[2024-11-27] MEDS: METAMUCIL, KONSYL 1 PACKET TUBE (08:18)
[2024-11-27] MEDS: ZYLOPRIM 100 MG TUBE (08:19)
[2024-11-27] MEDS: NSS (PRESERVATIVE FREE) 10 ML IV ×2 (08:27→21:01)
[2024-11-27] MEDS: PROTONIX IV 40 MG IV ×2 (08:27→21:02)
--- NOTE | 2024-11-27 09:46 | W.PN.ID1 ---
Date of Service
Date of Service: November 27, 2024
Today's Communication
Continue meropenem.
Assessment / Plan
# MDR, ESBL-Klebsiella bacteremia 1 of 1 set bcx, source unclear
# leukocytosis - improved
# s/p hypothermia
# s/p Blood loss anemia - possibly from UGIB
# Diarrhea -> C. diff neg.
# hx C. diff x 1 (august 2024)
# ESRD on HD
# CVA, paraplegia, bed bound, PEG on tube feed
# Chronic sacral wounds
- Repeat blood cx x 1 (off abx) negative to date.
- 2nd set bcx negative to date
- Continue meropenem 500 mg Iv q24 (d5 of 7)
- Continue C. diff prophylaxis with po Vancomycin 125mg daily while on systemic abx.
- Continue Contact isolation
- Keep stool away from sacral wounds.
Conditions present on admission
CVA and paraplegia
Dysphagia status post PEG
Atrial fibrillation
HTN
End-stage renal disease on hemodialysis Friday via right IJ PermCath
GIB/erosive gastritis
C. diff x 1 (08/2024)
Chronic sacral decubitus wounds
Urinary retention with griffiths
Left upper extremity AV fistula placement
history of intra-abdominal abscess/necrotizing infection s/p exploratory laparotomy
Chief Complaint
-: Bacteremia
Vital Signs / Physical Exam
Vital Signs
Vital Signs
Temp Pulse Resp BP Pulse Ox
98.9 F 76 21 125/58 99
11/27/24 07:00 11/27/24 06:00 11/27/24 06:00 11/27/24 06:00 11/27/24 06:00
Physical Exam
Constitutional: Comfortable and Chronically Ill
Cardiovascular: Regular Rate and S1/S2
Pulmonary: Clear
Gastrointestinal: Soft, Non Tender, Non Distended and Other (FMS light brown stool)
Genito-Urinary: Griffiths and Clear Urine; Negative CVA Tenderness
Extremities: Negative Edema
Neurological: Awake and Alert
Lines: HD Cath (RCW no erythema)
Objective Data
Lab Data
Lab Results
11/27/24 05:09
11/27/24 05:09
PT 17.3 Sec (11.4-14.6) H 11/24/24 05:19
INR 1.38 11/24/24 05:19
Estimated Creat Clear 38 ml/min 11/27/24 05:09
Total Bilirubin 0.5 mg/dl (0.2-1.3) 11/22/24 15:30
AST 27 U/L (17-59) 11/22/24 15:30
ALT 16 U/L (0-50) 11/22/24 15:30
Alkaline Phosphatase 121 U/L (38-126) 11/22/24 15:30
Most recent labs reviewed.
Micro Results:
11/23/24 05:33 Blood Culture - Preliminary
Blood/Venous No Growth in 4 days- Final report to follow
11/23/24 22:49 Blood Culture - Preliminary
Blood/Venous No Growth in 72 hours- Final report to follow
11/22/24 15:29 Blood Culture - Final
Blood/Venous Klebsiella pneumoniae-ESBL
Gram Stain - Final
11/22/24 15:30 Salmonella/Shigella Culture - Final
Feces/Stool No Salmonella, Shigella, Aeromonas or Plesiomonas species
isolated.
Campylobacter Culture - Final
No Campylobacter species isolated.
Shiga Toxin Test - Final
No E. coli Shiga Toxin 1 or 2 detected.
11/23/24 04:44 MRSA Screen - Final
Nose No Methicillin Resistant Staphylococcus aureus isolated.
11/22/24 15:30 C. difficile GDH Antigen & Toxins - Final
Feces/Stool Negative for toxigenic C.difficile
11/23/24 CT a/p: Moderate small bowel wall thickening in the right abdomen.. New.
11/23/24 AXR: Nonspecific bowel gas pattern without signs of obstruction.
11/22/34 CXR: No acute cardiopulmonary process.
--- NOTE | 2024-11-27 10:00 | PTCARENOTE ---
Pt non verbal with Peg tube, Nepro at 55 hr 25 water flush. Chronic griffiths pt is oliguric. Rectal trumpet in place, stage 4 sacral wound . Pt is drowsy non verbal . R midline in place. R cw tunnel HD cath in place. Pt has contractures, total care.
Pt in NSR at this time.
--- NOTE | 2024-11-27 11:53 | PTCARENOTE ---
Nursing instuctor and students did wound care today and CHG bath
[2024-11-27] MEDS: DAKIN'S SOLUTION 0.125% 1/4 STRENGTH 1 ML TOPICAL (12:16)
[2024-11-27] MEDS: MERREM 500 MG IV (12:55)
[2024-11-27] MEDS: STERILE WATER FOR INJECTION 10 ML IV (12:56)
--- NOTE | 2024-11-27 14:03 | W.PN.HOSP.TC ---
Today's Communication/Plan
-
Continue antibiotics
Potassium replacement
See plan
Assessment / Plan
Assessment / Plan
Physical Exam
General: No Apparent Distress
Respiratory: Clear to Auscultation
Cardiac: S1 and S2. Regular Rhythm
GI: Soft, Nontender and Nondistended. Positive bowel sounds.
Skin: Warm
Neuro: Awake and Alert
Psych: Calm
Assessment/Plan
59-year-old male past medical history of CVA, nonverbal, paraplegia (bedbound status), dysphagia with PEG tube, history of tracheostomy status post removal, ESRD on dialysis Friday, sick on Friday, chronic iron deficiency anemia, history of GI
bleeding/erosive gastritis this month, paroxysmal atrial fibrillation, cholelithiasis, chronic sacral/ischial wounds presented with vomiting blood at [facility]. He was recently admitted from 11/02/24 to 11/11/24 for GI bleeding requiring
2 units of blood transfusion. Had EGD which was obscured by tube feeds but suspected erosive gastritis. He was treated with Protonix and Carafate. PEG tube recommend to be changed in 3 to 4 weeks. Also had urinary retention Wellington catheter
difficulty placed due to phimosis. He was C. difficile antigen positive, toxin negative and treated with prophylactic oral vancomycin for chronic diarrhea. Vital signs show blood pressure of 82/46. He was covered with brown watery diarrhea up to
his back. ER reportedly notes blood aspirated from PEG tube although no evidence currently. Labs shoed leukocytosis. Hemoglobin of 8.8 from 8.2 on discharge. Heme test negative. Patient with possible hematemesis and bleeding from PEG tube.
Patient here with SIRS positive, volume depletion from diarrhea unclear if this is due to persistent C. difficile. Check stool culture, C. difficile.
#Acute hypotension due to volume depletion from diarrhea
-Resolved after IV fluids given
#Diarrhea
#Chronic loose stool 3-4 per day
#History of recent C.diff
#History of C. difficile PCR positive toxin negative
Last admission, Metamucil and Imodium with continued evaluation for need to stop
He was treated for C. difficile for toxin negative antigen positive -- stool C.diff PCR positive and toxin neg -- frequency of PO Vancomycin was reduced to help with patient's diarrhea which in turn can be affecting patient's wounds -- continue C.
diff prophylaxis po vancomycin to 125mg daily (please see below)
Rectal tube taken out on 11/08/24 as tube risk for irritation with continued use and SNF needs out prior to transfer -- so plan was to use external pouch if needed
Follow stool studies -- negative for toxigenic C. diff this admission
Eventual outpatient follow-up with Dr. Silvestre
-I spoke with GI Dr. Bruce on 11/25/24, and she recommended checking echocardiogram since it is suspected that diarrhea is from gut wall edema -- but echo 11/26/24 was unremarkable
#Sepsis, POA
#MDR, ESBL-Klebsiella bacteremia
#Leukocytosis
-Follow repeat blood cultures
-Continue Merrem (Day 5 of 7)
-C. diff prophylaxis with po Vancomycin 125mg daily while on systemic antibiotics
-Avoid stool contamination of sacral wounds
-Continue contact isolation
#Chronic bedbound status causing decubitus wounds
#Sacral/ischial decub wounds stage II, ischial wound stage I or II close proximity rectal area
#Extensive history of sacral wound mgmt in [facility]
-Last admission: given concern for stool contaminating patient's wound in close proximity to his rectal area, consulted colorectal surgery for possible colostomy bag -- but patient is too high risk for surgery with extremely high risk for
complications -- colorectal surgeon spoke with patient's , mentioned that it would be technically challenging due to his prior surgeries, which limit options for ostomy locations. At this time, patient's is not interested in colostomy with
these risks in mind.
-Would have preferred to avoid replacement of rectal tube as a rectal tube for prolonged period will also cause decubitus ulcers and wounds
-Patient was on C. difficile prophylaxis with oral vancomycin 125 daily through 11/18/2024 --- Probiotic and recently reduced (on 11/09/24) frequency of PO Vancomycin to daily prophylaxis to see whether that helps with diarrhea
-Continue Merrem and PO Vancomycin prophylaxis
-Consult wound care
#Recent severe erosive gastritis(no H. pylori on recent path)
#Recent GI bleed secondary to blood loss anemia and anemia chronic disease secondary to ESRD-received 2 units of PRBCs on recent admission
#Yes, hematemesis is associated with/exacerbated by Eliquis.
Reportedly vomited blood at [facility]
Was seen by GI recently with recommended upper Endo 1.75 months to check healing severity of gastritis and inability to see stomach
under white coating question tube feeds
Will need PEG tube replacement 2 to 3 weeks-per prior GI recommendations
-Continue to monitor Hgb
-Continue IV Protonix BID and Carafate
-Continue PRBC transfusions as needed
-Likely would be poor candidate for colonoscopy given chronic illness and difficulty prepping with multiple sacral decub and also brown stools
#History of A-fib on Eliquis
-Hold Eliquis -- will hold through 11/30/24 as per GI recommendations, and can then consider resuming at lower dose of Eliquis 2.5 mg BID
#Recent acute Urinary retention(2liters) required Wellington catheter on discharge
#Acute urinary retention
#Phimosis
#Difficult Wellington Catheter
-Patient has difficult Wellington catheter insertion/history of phimosis
-Unable to use Flomax or finasteride as they cannot be crushed and PEG tube
#ESRD on HD Friday via right IJ permacath
#New 1-month-old old left upper extremity AV fistula
-Appreciate nephrology
-Dialysis as per nephrology
#Hyponatremia
-Continue to monitor BMP
#Recent Hypophosphatemia
#History of CVA with residual aphasia, dysphagia paraplegia
#Patient nonverbal due to CVA
#History of dysphagia due to CVA on current PEG tube
- Resume tube feeds as per GI -- see dietitian notes for tube feed recommendations when resuming tube feeds
#History of trach with removal
#Anxiety history
-Continue Zoloft 25 mg via G-tube
-Continue prn Lorazepam 0.5 mg twice daily as needed anxiety hold SBP<110 parameters
#History of ALP elevation
#Mild relative left-sided 'bulging' of the intestinal tract
#Atrophy of the rectus abdominis musculature
#Dysphagia
on PEG
#History of CVA with residual aphasia and paraplegia only
#Nonverbal
-Hold Eliquis for now
#History of Trach
-Previously removed
#Recent History of Bilateral atelectasis secondary to bedbound status
2/2 bedbound status
-cannot follow instruction for IS appropriately
#Asymptomatic cholelithiasis
#Hepatosplenomegaly
-Outpatient follow up
On 11/25/24, I spoke extensively over the phone with patient's Key, and I discussed patient's guarded prognosis and current medical condition and management. I answered all of her questions and concerns to satisfaction. Key stated patient
would want to be Full Code.
DVT Prophylaxis: Heparin subq -- Hgb okay, no overt signs of bleeding, monitor while on Heparin subq prophylaxis -- if no DVTs confirmed, will start SCDs
Anticipated Discharge: > 48 hours
Subjective/Interval History
-
Date of Service: November 27, 2024
Patient was seen and examined. No new significant events or complaints.
Objective Data
-
Labs:
Laboratory Results
11/27/24
05:09
WBC 11.7 H
Hgb 7.4 L
Hct 24.5 L
Plt Count 422 H
Sodium 134 L
Potassium 3.4 L
Chloride 99
Carbon Dioxide 30
BUN 25 H
Creatinine 2.1 H
Glucose 188 H
Calcium 8.5
Vital Signs:
Vital Signs
Temp Pulse Resp BP Pulse Ox
98.0 F 85 30 156/79 97
11/27/24 11:00 11/27/24 10:00 11/27/24 10:00 11/27/24 10:00 11/27/24 10:00
I&O
11/26/24 11/27/24 11/28/24
06:59 06:59 06:59
Intake Total 235 / 300 785 / 785
Output Total 110 / 110 400 / 400
Balance 125 / 190 385 / 385
[2024-11-27] MEDS: KLOR-CON 20 MEQ TUBE (14:51)
[2024-11-27] MEDS: HEPARIN 5000 UNITS SC (21:01)
--- NOTE | 2024-11-27 22:11 | PTCARENOTE ---
Assumed care of Pt at shift change; Pt resting comfortably in bed; Non-verbal at baseline; SR on monitor, 100% on room air; Rectal tube intact draining liquid brown stool; Chronic griffiths draining cloudy yellow urine with sediment; Small amount of
light yellow exudate noted around meatus during griffiths care. Mouth and lip care performed; Will continue to monitor and assess.
[2024-11-28] VITALS (12 sets, daily range): BP systolic 139–158; BP diastolic 62–85; BMI 27.5
[2024-11-28 04:16] LABS: Hematocrit 24.9 % (39.0-52.0); Hemoglobin 7.8 g/dL (13.0-18.0); Mean Corp Hgb Conc. 31.3 g/dL (33.0-37.0); Mean Corpuscular Volume 88.0 fL (80.0-94.0); Platelet Count 400 10^3/uL (130-400); Red Cell Dist. Width 15.4 % (11.5-14.5)
[2024-11-28 04:33] LABS: Nucleated Red Blood Cells % 0.2 % (-)
[2024-11-28 04:41] LABS: Blood Urea Nitrogen 37 mg/dl (9-20); Calcium 8.6 mg/dl (8.4-10.2); Carbon Dioxide 31 mmol/L (22-30); Chloride 100 mmol/L (98-107); Estimated Creatinine Clearance 29 ml/min; Glucose 140 mg/dl (70-99); Potassium 3.8 mmol/L (3.5-5.1); Sodium 133 mmol/L (135-145); eGFR 26.33
--- NOTE | 2024-11-28 07:30 | PTCARENOTE ---
Received patient in sleep, Arousable to voice/touch, Baseline nonverbal, Nod/Shake head appropriately, Arms contracted, Legs stiff, on RA, NSR, BP WNL, PEG infusing Nepro TF at goal rate w/ water flush, Rectal trumpet in place, Chronic Wellington.
--- NOTE | 2024-11-28 08:49 | W.PN.NEPH.PH ---
Today's Communication / Plan
-
Dialysis tomorrow
Orders provided
Escalate NIVIA on dialysis for anemia
Assessment/Plan
-
IMP:
Acute blood loss anemia 2/2 GIB on anemia of chronic disease 2/2 ESRD
Diarrhea
Hx of recent C.diff
Leukocytosis
ESRD on HD-MWF [facility]
left UE AVF
right chest wall catheter
Mild hypokalemia
Dysphagia on PEG
Hx of CVA with residual aphasia and paraplegia
Urine retention
NIDDM
Plan:
dialysis friday, orders provided
remains on Meropenem and oral vancomycin
Blood products to be provided as necessary for anemia, NIVIA support will be provided as well as IV iron if needed
Currently hemodynamically stable
-
-
Date of Service: November 28, 2024
CC / HPI / ROS
-
Chief Complaint:
Diarrhea blood loss
History of Present Illness:
ESRD chronic MWF
on antibiotics for ESBL bacteremia
Anemia persist
Review of Systems:
No fevers
Nonverbal
Labs
-
Labs:
WBC 13.2 10^3/uL (4.8-10.8) H 11/28/24 03:59
RBC 2.83 10^6/uL (4.70-6.10) L 11/28/24 03:59
Hgb 7.8 g/dL (13.0-18.0) L 11/28/24 03:59
Hct 24.9 % (39.0-52.0) L 11/28/24 03:59
Plt Count 400 10^3/uL (130-400) 11/28/24 03:59
Sodium 133 mmol/L (135-145) L 11/28/24 03:59
Potassium 3.8 mmol/L (3.5-5.1) 09/28/25 03:59
Chloride 100 mmol/L (98-107) 11/28/24 03:59
Carbon Dioxide 31 mmol/L (22-30) H 11/28/24 03:59
BUN 37 mg/dl (9-20) H 11/28/24 03:59
Creatinine 2.7 mg/dL (0.7-1.3) H 11/28/24 03:59
eGFR 26.33 11/28/24 03:59
Glucose 140 mg/dl (70-99) H 11/28/24 03:59
Calcium 8.6 mg/dl (8.4-10.2) 11/28/24 03:59
Albumin 3.0 g/dl (3.5-5.0) L 11/22/24 15:30
Physical Exam
-
Vital Signs:
Vital Signs
Temp Pulse Resp BP Pulse Ox
98.7 F 77 10 140/62 96
11/28/24 03:00 11/28/24 06:00 11/28/24 06:00 11/28/24 06:00 11/28/24 04:00
Cardiovascular:: Regular rate and rhythm
Respiratory:: Bilateral: Coarse
Lung Excursion:: Normal
Abdomen:: Nontender and Soft
Bowel Sounds:: Normal
Extremity Edema:: None: Bilateral:
Wellington Catheter: Yes
[2024-11-28] MEDS: PROTONIX IV 40 MG IV ×2 (09:30→20:51)
[2024-11-28] MEDS: ZOLOFT 25 MG TUBE (09:30)
[2024-11-28] MEDS: TYLENOL 650 MG TUBE (09:30)
[2024-11-28] MEDS: FIRVANQ 125 MG TUBE (09:30)
[2024-11-28] MEDS: DAKIN'S SOLUTION 0.125% 1/4 STRENGTH 473 ML TOPICAL (09:30)
[2024-11-28] MEDS: ZYLOPRIM 100 MG TUBE (09:30)
[2024-11-28] MEDS: METAMUCIL, KONSYL 1 PACKET TUBE (09:30)
[2024-11-28] MEDS: CARAFATE SUSPENSION 1 GM TUBE ×2 (09:30→20:51)
[2024-11-28] MEDS: HEPARIN 5000 UNITS SC ×2 (09:30→23:52)
[2024-11-28] MEDS: NSS (PRESERVATIVE FREE) 10 ML IV ×2 (09:30→20:51)
--- NOTE | 2024-11-28 11:09 | W.PN.ID1 ---
Date of Service
Date of Service: November 28, 2024
Today's Communication
Continue meropenem through tomorrow.
Assessment / Plan
# MDR, ESBL-Klebsiella bacteremia 1 of 1 set bcx, source unclear
# leukocytosis - waxes and wanes
# s/p hypothermia
# s/p Blood loss anemia - possibly from UGIB
# Diarrhea -> C. diff neg.
# hx C. diff x 1 (august 2024)
# ESRD on HD
# CVA, paraplegia, bed bound, PEG on tube feed
# Chronic sacral wounds
- Repeat blood cx x 1 (off abx) negative to date.
- 2nd set bcx negative to date
- Continue meropenem 500 mg Iv q24 (d6 of 7)
- Continue C. diff prophylaxis with po Vancomycin 125mg daily while on systemic abx.
- Continue Contact isolation
- Keep stool away from sacral wounds.
Conditions present on admission
CVA and paraplegia
Dysphagia status post PEG
Atrial fibrillation
HTN
End-stage renal disease on hemodialysis Friday via right IJ PermCath
GIB/erosive gastritis
C. diff x 1 (08/2024)
Chronic sacral decubitus wounds
Urinary retention with griffiths
Left upper extremity AV fistula placement
history of intra-abdominal abscess/necrotizing infection s/p exploratory laparotomy
Chief Complaint
-: Bacteremia
Vital Signs / Physical Exam
Vital Signs
Vital Signs
Temp Pulse Resp BP Pulse Ox
97.2 F 77 10 140/62 96
11/28/24 07:40 11/28/24 06:00 11/28/24 06:00 11/28/24 06:00 11/28/24 04:00
Physical Exam
Constitutional: Comfortable and Chronically Ill
Cardiovascular: Regular Rate and S1/S2
Pulmonary: Clear
Gastrointestinal: Soft, Non Tender, Non Distended and Other (FMS light brown stool)
Genito-Urinary: Griffiths and Clear Urine; Negative CVA Tenderness
Extremities: Negative Edema
Neurological: Awake and Alert
Lines: HD Cath (RCW no erythema)
Objective Data
Lab Data
Lab Results
11/28/24 03:59
11/28/24 03:59
PT 17.3 Sec (11.4-14.6) H 11/24/24 05:19
INR 1.38 11/24/24 05:19
Estimated Creat Clear 29 ml/min 11/28/24 03:59
Total Bilirubin 0.5 mg/dl (0.2-1.3) 11/22/24 15:30
AST 27 U/L (17-59) 11/22/24 15:30
ALT 16 U/L (0-50) 11/22/24 15:30
Alkaline Phosphatase 121 U/L (38-126) 11/22/24 15:30
Most recent labs reviewed.
Micro Results:
11/23/24 05:33 Blood Culture - Final
Blood/Venous No Growth - Final Report
11/23/24 22:49 Blood Culture - Preliminary
Blood/Venous No Growth in 4 days- Final report to follow
11/22/24 15:29 Blood Culture - Final
Blood/Venous Klebsiella pneumoniae-ESBL
Gram Stain - Final
11/22/24 15:30 Salmonella/Shigella Culture - Final
Feces/Stool No Salmonella, Shigella, Aeromonas or Plesiomonas species
isolated.
Campylobacter Culture - Final
No Campylobacter species isolated.
Shiga Toxin Test - Final
No E. coli Shiga Toxin 1 or 2 detected.
11/23/24 04:44 MRSA Screen - Final
Nose No Methicillin Resistant Staphylococcus aureus isolated.
11/22/24 15:30 C. difficile GDH Antigen & Toxins - Final
Feces/Stool Negative for toxigenic C.difficile
11/23/24 CT a/p: Moderate small bowel wall thickening in the right abdomen.. New.
11/23/24 AXR: Nonspecific bowel gas pattern without signs of obstruction.
11/22/34 CXR: No acute cardiopulmonary process.
[2024-11-28] MEDS: MERREM 500 MG IV (14:57)
[2024-11-28] MEDS: STERILE WATER FOR INJECTION 10 ML IV (14:57)
--- NOTE | 2024-11-28 18:51 | W.PN.HOSP.TC ---
Addendum entered and electronically signed by Brendan Colon MD 11/28/24 18:59:
Heparin subq dose increased to 5000 units Q8H from Q12H
Original Note:
Today's Communication/Plan
-
Stable
Continue antibiotics
See plan
Assessment / Plan
Assessment / Plan
Physical Exam
General: No Apparent Distress
Respiratory: Clear to Auscultation
Cardiac: S1 and S2. Regular Rhythm
GI: Soft, Nontender and Nondistended. Positive bowel sounds.
Skin: Warm
Neuro: Awake and Alert
Psych: Calm
Assessment/Plan
59-year-old male past medical history of CVA, nonverbal, paraplegia (bedbound status), dysphagia with PEG tube, history of tracheostomy status post removal, ESRD on dialysis Friday, sick on Friday, chronic iron deficiency anemia, history of GI
bleeding/erosive gastritis this month, paroxysmal atrial fibrillation, cholelithiasis, chronic sacral/ischial wounds presented with vomiting blood at [facility]. He was recently admitted from 11/02/24 to 11/11/24 for GI bleeding requiring
2 units of blood transfusion. Had EGD which was obscured by tube feeds but suspected erosive gastritis. He was treated with Protonix and Carafate. PEG tube recommend to be changed in 3 to 4 weeks. Also had urinary retention Wellington catheter
difficulty placed due to phimosis. He was C. difficile antigen positive, toxin negative and treated with prophylactic oral vancomycin for chronic diarrhea. Vital signs show blood pressure of 82/46. He was covered with brown watery diarrhea up to
his back. ER reportedly notes blood aspirated from PEG tube although no evidence currently. Labs shoed leukocytosis. Hemoglobin of 8.8 from 8.2 on discharge. Heme test negative. Patient with possible hematemesis and bleeding from PEG tube.
Patient here with SIRS positive, volume depletion from diarrhea unclear if this is due to persistent C. difficile. Check stool culture, C. difficile.
#Acute hypotension due to volume depletion from diarrhea
-Resolved after IV fluids given
#Diarrhea
#Chronic loose stool 3-4 per day
#History of recent C.diff
#History of C. difficile PCR positive toxin negative
Last admission, Metamucil and Imodium with continued evaluation for need to stop
He was treated for C. difficile for toxin negative antigen positive -- stool C.diff PCR positive and toxin neg -- frequency of PO Vancomycin was reduced to help with patient's diarrhea which in turn can be affecting patient's wounds -- continue C.
diff prophylaxis po vancomycin to 125mg daily (please see below)
Rectal tube taken out on 11/08/24 as tube risk for irritation with continued use and SNF needs out prior to transfer -- so plan was to use external pouch if needed
Follow stool studies -- negative for toxigenic C. diff this admission
Eventual outpatient follow-up with Dr. Silvestre
-I spoke with GI Dr. Bruce on 11/25/24, and she recommended checking echocardiogram since it is suspected that diarrhea is from gut wall edema -- but echo 11/26/24 was unremarkable
#Sepsis, POA
#MDR, ESBL-Klebsiella bacteremia
#Leukocytosis
-Follow repeat blood cultures
-Continue Merrem (Day 6 of 7)
-C. diff prophylaxis with po Vancomycin 125mg daily while on systemic antibiotics
-Avoid stool contamination of sacral wounds
-Continue contact isolation
#Chronic bedbound status causing decubitus wounds
#Sacral/ischial decub wounds stage II, ischial wound stage I or II close proximity rectal area
#Extensive history of sacral wound mgmt in [facility]
-Last admission: given concern for stool contaminating patient's wound in close proximity to his rectal area, consulted colorectal surgery for possible colostomy bag -- but patient is too high risk for surgery with extremely high risk for
complications -- colorectal surgeon spoke with patient's , mentioned that it would be technically challenging due to his prior surgeries, which limit options for ostomy locations. At this time, patient's is not interested in colostomy with
these risks in mind.
-Would have preferred to avoid replacement of rectal tube as a rectal tube for prolonged period will also cause decubitus ulcers and wounds
-Patient was on C. difficile prophylaxis with oral vancomycin 125 daily through 11/18/2024 --- Probiotic and recently reduced (on 11/09/24) frequency of PO Vancomycin to daily prophylaxis to see whether that helps with diarrhea
-Continue Merrem and PO Vancomycin prophylaxis
-Consult wound care
#Recent severe erosive gastritis(no H. pylori on recent path)
#Recent GI bleed secondary to blood loss anemia and anemia chronic disease secondary to ESRD-received 2 units of PRBCs on recent admission
#Yes, hematemesis is associated with/exacerbated by Eliquis.
Reportedly vomited blood at [facility]
Was seen by GI recently with recommended upper Endo 1.75 months to check healing severity of gastritis and inability to see stomach
under white coating question tube feeds
Will need PEG tube replacement 2 to 3 weeks-per prior GI recommendations
-Continue to monitor Hgb
-Continue IV Protonix BID and Carafate
-Continue PRBC transfusions as needed
-Likely would be poor candidate for colonoscopy given chronic illness and difficulty prepping with multiple sacral decub and also brown stools
#History of A-fib on Eliquis
-Hold Eliquis -- will hold through 11/30/24 as per GI recommendations, and can then consider resuming at lower dose of Eliquis 2.5 mg BID
#Recent acute Urinary retention(2liters) required Wellington catheter on discharge
#Acute urinary retention
#Phimosis
#Difficult Wellington Catheter
-Patient has difficult Wellington catheter insertion/history of phimosis
-Unable to use Flomax or finasteride as they cannot be crushed and PEG tube
#ESRD on HD Friday via right IJ permacath
#New 1-month-old old left upper extremity AV fistula
-Appreciate nephrology
-Dialysis as per nephrology
#Hyponatremia
-Continue to monitor BMP
#Recent Hypophosphatemia
#History of CVA with residual aphasia, dysphagia paraplegia
#Patient nonverbal due to CVA
#History of dysphagia due to CVA on current PEG tube
- Resume tube feeds as per GI -- see dietitian notes for tube feed recommendations when resuming tube feeds
#History of trach with removal
#Anxiety history
-Continue Zoloft 25 mg via G-tube
-Continue prn Lorazepam 0.5 mg twice daily as needed anxiety hold SBP<110 parameters
#History of ALP elevation
#Mild relative left-sided 'bulging' of the intestinal tract
#Atrophy of the rectus abdominis musculature
#Dysphagia
on PEG
#History of CVA with residual aphasia and paraplegia only
#Nonverbal
-Hold Eliquis for now
#History of Trach
-Previously removed
#Recent History of Bilateral atelectasis secondary to bedbound status
2/2 bedbound status
-cannot follow instruction for IS appropriately
#Asymptomatic cholelithiasis
#Hepatosplenomegaly
-Outpatient follow up
On 11/25/24, I spoke extensively over the phone with patient's Key, and I discussed patient's guarded prognosis and current medical condition and management. I answered all of her questions and concerns to satisfaction. Key stated patient
would want to be Full Code.
DVT Prophylaxis: Heparin subq -- Hgb okay, no overt signs of bleeding, monitor while on Heparin subq prophylaxis. Consider checking ultrasound if desired to check for any DVTs (since patient was off blood thinners for several days -- and if
ultrasound negative for DVT, then can order SCDs)
Anticipated Discharge: 24 - 48 hours
Subjective/Interval History
-
Date of Service: November 28, 2024
Patient was seen and examined. No bleeding after Heparin subq DVT prophylaxis started. No new events reported as per my discussion with patient's nurse.
Objective Data
-
Vital Signs:
Vital Signs
Temp Pulse Resp BP Pulse Ox
98.9 F 77 16 145/69 100
11/28/24 15:00 11/28/24 18:32 11/28/24 18:32 11/28/24 18:32 11/28/24 18:32
I&O
11/27/24 11/28/24 11/29/24
06:59 06:59 06:59
Intake Total 785 / 785 720 / 720
Output Total 400 / 400 460 / 460 210 / 210
Balance 385 / 385 -460 / -380 510 / 510
--- NOTE | 2024-11-28 22:33 | PTCARENOTE ---
Pt resting comfortably in pain, Non-verbal but nods to questions appropriately. Denies pain; PEG intact, with Nepro running @ 55ml/hr and 25ml water flushes. R midline flushes, no blood return. VSS; NSR on monitor; Will continue to monitor and
assess.
[2024-11-29] VITALS (20 sets, daily range): BP systolic 110–163; BP diastolic 61–84
--- NOTE | 2024-11-29 08:16 | PTCARENOTE ---
Pt has R HD cath for HD today at 1200. PT has l midline. . Peg tube with Nepro at 55 and 25 water flush ,pt is at goal. Chronic Wellington in place, pt oliguric. Pt also has rectal trumpet. Lungs are coarse. Pt has thick secretions being suctioned
orally.
[2024-11-29] MEDS: TYLENOL 650 MG TUBE (08:43)
[2024-11-29] MEDS: CARAFATE SUSPENSION 1 GM TUBE (08:43)
[2024-11-29] MEDS: FIRVANQ 125 MG TUBE (08:44)
[2024-11-29] MEDS: METAMUCIL, KONSYL 1 PACKET TUBE (08:44)
[2024-11-29] MEDS: HEPARIN 5000 UNITS SC ×2 (08:44→15:30)
[2024-11-29] MEDS: ZYLOPRIM 100 MG TUBE (08:44)
[2024-11-29] MEDS: DAKIN'S SOLUTION 0.125% 1/4 STRENGTH 473 ML TOPICAL (08:45)
[2024-11-29] MEDS: PROTONIX IV 40 MG IV (08:45)
[2024-11-29] MEDS: NSS (PRESERVATIVE FREE) 10 ML IV (08:45)
[2024-11-29] MEDS: ZOLOFT 25 MG TUBE (09:07)
--- NOTE | 2024-11-29 09:23 | W.PN.ID1 ---
Date of Service
Date of Service: November 29, 2024
Today's Communication
- Last day of meropenem 500 mg Iv q24 (d7 of 7)
- Continue C. diff prophylaxis with po Vancomycin 125mg daily through 12/04/24.
-ID will sign off.
Assessment / Plan
# MDR, ESBL-Klebsiella bacteremia 1 of 1 set bcx, source unclear
# leukocytosis - waxes and wanes
# s/p hypothermia
# s/p Blood loss anemia - possibly from UGIB
# Diarrhea -> C. diff neg.
# hx C. diff x 1 (august 2024)
# ESRD on HD
# CVA, paraplegia, bed bound, PEG on tube feed
# Chronic sacral wounds
- Repeat blood cx x 1 (off abx) negative to date.
- 2nd set bcx negative to date
- Continue meropenem 500 mg Iv q24 (d7 of 7)
- Continue C. diff prophylaxis with po Vancomycin 125mg daily through 12/04/24.
- Keep stool away from sacral wounds. Unfortunately, pt deemed too high risk for diverting colostomy.
ID will sign off.
Conditions present on admission:
CVA and paraplegia
Dysphagia status post PEG
Atrial fibrillation
HTN
End-stage renal disease on hemodialysis Friday via right IJ PermCath
GIB/erosive gastritis
C. diff x 1 (08/2024)
Chronic sacral decubitus wounds
Urinary retention with griffiths
Left upper extremity AV fistula placement
history of intra-abdominal abscess/necrotizing infection s/p exploratory laparotomy
Chief Complaint
-: Bacteremia
Vital Signs / Physical Exam
Vital Signs
Vital Signs
Temp Pulse Resp BP Pulse Ox
97.7 F 69 0 123/70 100
11/29/24 07:27 11/29/24 08:00 11/29/24 08:00 11/29/24 08:00 11/29/24 08:00
Physical Exam
Constitutional: Comfortable and Chronically Ill
Cardiovascular: Regular Rate and S1/S2
Pulmonary: Clear
Gastrointestinal: Soft, Non Tender, Non Distended and Other (FMS light brown stool)
Genito-Urinary: Griffiths and Clear Urine; Negative CVA Tenderness
Extremities: Negative Edema
Neurological: Awake and Alert
Lines: HD Cath (RCW no erythema)
Objective Data
Lab Data
PT 17.3 Sec (11.4-14.6) H 11/24/24 05:19
INR 1.38 11/24/24 05:19
Estimated Creat Clear 29 ml/min 11/28/24 03:59
Total Bilirubin 0.5 mg/dl (0.2-1.3) 11/22/24 15:30
AST 27 U/L (17-59) 11/22/24 15:30
ALT 16 U/L (0-50) 11/22/24 15:30
Alkaline Phosphatase 121 U/L (38-126) 11/22/24 15:30
Most recent labs reviewed.
Micro Results:
11/23/24 22:49 Blood Culture - Final
Blood/Venous No Growth - Final Report
11/23/24 05:33 Blood Culture - Final
Blood/Venous No Growth - Final Report
11/22/24 15:29 Blood Culture - Final
Blood/Venous Klebsiella pneumoniae-ESBL
Gram Stain - Final
11/22/24 15:30 Salmonella/Shigella Culture - Final
Feces/Stool No Salmonella, Shigella, Aeromonas or Plesiomonas species
isolated.
Campylobacter Culture - Final
No Campylobacter species isolated.
Shiga Toxin Test - Final
No E. coli Shiga Toxin 1 or 2 detected.
11/23/24 04:44 MRSA Screen - Final
Nose No Methicillin Resistant Staphylococcus aureus isolated.
11/22/24 15:30 C. difficile GDH Antigen & Toxins - Final
Feces/Stool Negative for toxigenic C.difficile
11/23/24 CT a/p: Moderate small bowel wall thickening in the right abdomen.. New.
11/23/24 AXR: Nonspecific bowel gas pattern without signs of obstruction.
11/22/34 CXR: No acute cardiopulmonary process.
--- NOTE | 2024-11-29 12:26 | PTCARENOTE ---
Key called gave permission for pneumococcal vaccine to be given
[2024-11-29 12:28] LABS: Hematocrit 25.6 % (39.0-52.0); Hemoglobin 7.8 g/dL (13.0-18.0); Mean Corp Hgb Conc. 30.5 g/dL (33.0-37.0); Mean Corpuscular Volume 87.7 fL (80.0-94.0); Platelet Count 371 10^3/uL (130-400); Red Cell Dist. Width 15.7 % (11.5-14.5)
--- NOTE | 2024-11-29 12:34 | CM ---
Addendum entered by Laurie Cade 11/29/24 15:29:
Report: [phone]

Addendum entered by Laurie Cade 11/29/24 15:15:
Medical Attending stated that patient is ready to discharge. Updates sent to [facility] today. Teresa, the Admissions shared that the Sig Other is in touch with the Web Production Artist and that there will be a meeting with the VP PLATFORMS there. Time for transfer
is arranged at 18:30 and Sig Other aware of the transfer as well as the center.
Additionally, Sig Evie Mackey is aware that there there are no accepting facilities. Key brought up another facility, but EVGENY Sullivan encouraged her to bring this to the VP PLATFORMS at [facility]. Key was assured by EVGENY Sullivan that attempts were made from
the hospital standpoint and that overall, if there could be an accepting facility, then the patient should transfer. Furthermore, Key was encouraged to call facilities herself.
Key thanked EVGENY Sullivan for trying
PLAN: Return to [facility] today for LTC
Original Note:
Following up on Patient. EVGENY Sullivan spoke to the Medical Attending who said that he is not sure the plan is for GI, but from his standpoint, he could return to his facility.
Attending aware of the Sig Other trying to change facilities. Thus far NO ACCEPTING facilities at this time. Patient might be ready in 1-2 days.
PLAN: Return to [facility]
[2024-11-29 12:44] LABS: Nucleated Red Blood Cells % 0.2 % (-)
[2024-11-29 12:49] LABS: Blood Urea Nitrogen 55 mg/dl (9-20); Calcium 8.9 mg/dl (8.4-10.2); Carbon Dioxide 29 mmol/L (22-30); Chloride 96 mmol/L (98-107); Estimated Creatinine Clearance 23 ml/min; Glucose 147 mg/dl (70-99); Potassium 3.7 mmol/L (3.5-5.1); Sodium 130 mmol/L (135-145); eGFR 19.96
--- NOTE | 2024-11-29 12:59 | W.PN.HOSP.TC ---
Today's Communication/Plan
-
dc after HD
Assessment / Plan
Assessment / Plan
59yo M with PMHx of ESRD on HD, Hx of c.diff, intraabdominal abscess, CVA s/p PEG and paraplegia, non-verbal, Afib on Eliquis, chronic sacral ulcers brought from [facility] with hypotension and concern for recurrent GIB. Was admitted for the same 3
weeks ago and was found errosive gastritytis. At that time GI recommended Carafate and PPI and eventual PEG replacement in 4 weeks. ALso found diarrhea and C.diff Ag positive, but toxin neg. Bcx positive with K.pneumoniae without clear source as per
ID. completed Abx. Recommended oral Vanco for c.diff ppx. Colorectal evaluated for possible diverting colostomy, however duet o previous Hx of intraad Sx - deemed not a candidate. POA also requesting STR change same as prior, however as pr CM - will
need to work with social security specialist in [place] for that. Recurent leukocytosis non-specific and due to persistent sacral wounds - high risk forreinfection, so FMS started. On Jarrell for chronic rinary retention with Hx of significant phymosis
A/P:
#Sepsis 2/2 K.pneumoniae Bacteremia possibly 2/2 mild left lower lobe airspace disease concerning for pneumonia
#C.diff carrier
#Recurrent leukocytosis
ID followed: completed ABx
#DIarrhea with hypovolemia and hypotension
resolved on IVF
CT: abnormal loop of small bowel in the left abdomen with moderate circumferential wall thickening
#Chronic bedbound status causing decubitus wounds
#Sacral/ischial decub wounds stage II, ischial wound stage I or II close proximity rectal area
#Extensive history of sacral wound mgmt in [facility]
Wound care
#Recent severe erosive gastritis(no H. pylori on recent path)
#Recent GI bleed secondary to acute blood loss anemia and anemia chronic disease secondary to ESRD exacerbated by Elqiuis
Carafate/PPI
Outpatient GI
#Afib, unspecified on Eliquis
as per GI - hold eliquis until 12/02/24 (for 7 days)
#ESRD on HD
#Hyponatremia recurent 2/2 ESRD
managed electrolytes with HD
Nephro for HD
#diffuse increased density in the subcutaneous tissues of the abdomen and pelvis consistent with severe volume overload or third spacing
GI recommended Echo - preserved EF, no significant valvular pathology or wall motion abnormality
Most likely 2/2 ESRD. manage volume with HD
#mild relative left-sided 'bulging' of the intestinal tract
atrophy of the rectus abdominis musculature 2/2 bedbond status
#Dysphagia on PEG
#Hx of CVA with residual aphasia and paraplegia
#Asymptomatic cholelithiasis
#Hepatosplenomegaly
Outpatient follow up
DVT ppx SCDs
Full code
I have spent at least 70min reviewign chart, test results, communication with POA, consultants and providing direct patient care
Anticipated Discharge: Today
Subjective/Interval History
-
Date of Service: November 29, 2024
Objective Data
-
Labs:
Laboratory Results
11/29/24
11:54
WBC 13.3 H
Hgb 7.8 L
Hct 25.6 L
Plt Count 371
Sodium 130 L
Potassium 3.7
Chloride 96 L
Carbon Dioxide 29
BUN 55 H
Creatinine 3.4 H
Glucose 147 H
Calcium 8.9
Vital Signs:
Vital Signs
Temp Pulse Resp BP Pulse Ox
97.6 F 70 11 136/67 99
11/29/24 11:39 11/29/24 12:15 11/29/24 12:15 11/29/24 12:15 11/29/24 12:15
I&O
11/28/24 11/29/24 11/30/24
06:59 06:59 06:59
Intake Total 720 / 720
Output Total 460 / 460 210 / 210
Balance -460 / -380 510 / 510
Review of Systems
-
Unable to obtain full review of systems at this time due to: Patient Non-verbal
Physical Exam
-
Respiratory: Clear to Auscultation
Cardiac: Regular Rhythm
GI: Soft, Nontender, Nondistended and Peg Tube
Neuro: Awake and Alert
Psych: Calm
--- NOTE | 2024-11-29 13:14 | W.DCSUMMARY ---
Discharge Summary
Discharge Data
Date of Admission: 11/22/24
Date of Discharge: 11/29/24
-
Pending Results: No
Hospital Course
59yo M with PMHx of ESRD on HD, Hx of c.diff, intraabdominal abscess, CVA s/p PEG and paraplegia, non-verbal, Afib on Eliquis, chronic sacral ulcers brought from [facility] with hypotension and concern for recurrent GIB. Was admitted for the same 3
weeks ago and was found erosive gastritis. At that time GI recommended Carafate and PPI and eventual PEG replacement in 4 weeks. ALso found diarrhea and C.diff Ag positive, but toxin neg. Bcx positive with K.pneumoniae without clear source as per
ID, however also concern for LLL pneumonia on CT. completed Abx with last dose of MErrem on 11/29/24 prior to d/c. Recommended oral Vanco for c.diff ppx. Colorectal evaluated for possible diverting colostomy, however duet o previous Hx of intraad Sx
- deemed not a candidate. POA also requesting STR change same as prior, however as pr CM - will need to work with social work program coordinator in [place] for that. Recurrent leukocytosis non-specific and due to persistent sacral wounds - high risk for re-infection, so
FMS started in hospital. On Jarrell for chronic rinary retention with Hx of significant phimosis
I have spent at least 70min reviewing chart, test results, communication with POA, consultants and providing direct patient care
PAtient was managed for:
#Sepsis 2/2 K.pneumoniae Bacteremia possibly 2/2 mild left lower lobe airspace disease concerning for pneumonia
#C.diff carrier
#Recurrent leukocytosis
#Diarrhea with hypovolemia and hypotension
#Chronic bedbound status causing decubitus wounds
#Sacral/ischial decub wounds stage II, ischial wound stage I or II close proximity rectal area
#Extensive history of sacral wound mgmt in [facility]
#Recent severe erosive gastritis(no H. pylori on recent path)
#Recent GI bleed secondary to acute blood loss anemia and anemia chronic disease secondary to ESRD exacerbated by Elqiuis
#Afib, unspecified on Eliquis
#ESRD on HD
#Hyponatremia recurent 2/2 ESRD
#diffuse increased density in the subcutaneous tissues of the abdomen and pelvis consistent with severe volume overload or third spacing
#mild relative left-sided 'bulging' of the intestinal tract
#Dysphagia on PEG
#Hx of CVA with residual aphasia and paraplegia
#Asymptomatic cholelithiasis
#Hepatosplenomegaly
Discharge Plan
-
Patient Disposition: Shelter/SNF
Discharge Diagnosis/Procedures: bacteremia
Diet: Other diet
Additional Diets: Tube feeding: Nepro w/ Carb Steady 55ml/h, free water 25mL/hr
Activity Restrictions/Additional Instructions:
Wound Care Instructions Stage 4 sacral wound- Clean with Dakins and pack with Dakins moistened gauze.Cover with sacral border foam or other dry dressing. Change daily and PRN if soiled. Apply Calazime to multiple open areas on buttocks daily and
PRN.
Left Ischium PI- Clean with Dakins. Apply AIDAN THICK LAYER of SANTYL and cover with adaptic and silicone border foam. Change daily and PRN if soiled.
Air mattress
Turning Schedule
Keep heels off-loaded with pillow or air cushion under calves
Frequent incontinence care.
Referrals:
UNKNOWN - PT DOES,NOT KNOW [Family Provider]
Additional Discharge Medication Instructions: Continue C. diff prophylaxis with po Vancomycin 125mg daily through 12/04/24.
Prescriptions:
New
vancomycin 50 mg/mL Recon Soln
125 mg feeding tube DAILY Qty: 60 0RF
Continued
sucralfate 100 mg/mL Suspension
1 g feeding tube BID Qty: 1000 1RF
pantoprazole [address] for susp in packet
40 mg feeding tube BID Qty: 30 2RF
nystatin 100,000 unit/mL Suspension
10 ml buccal TID
acetaminophen [Tylenol] 325 mg Tablet
650 mg feeding tube DAILY
loperamide 2 mg Capsule
2 mg feeding tube Q8HPRN PRN (Reason: DIARRHEA)
loperamide 2 mg Capsule
4 mg feeding tube BID
allopurinol 100 mg Tablet
100 mg feeding tube DAILY
tramadol 50 mg Tablet
50 mg feeding tube BID
lorazepam 0.5 mg Tablet
0.5 mg feeding tube BIDPRN PRN (Reason: AXNIETY)
bisacodyl [Dulcolax (bisacodyl)] 10 mg Suppository
10 mg SC DAILYPRN PRN (Reason: CONSTIPATION)
sertraline 25 mg Tablet
25 mg feeding tube DAILY
sorbitol 70 % Solution
30 ml PO DAILYPRN PRN (Reason: CONSTIPATION/ VIA PEG TUBE)
sevelamer carbonate 800 mg Tablet
800 mg feeding tube AC
Metamucil Fiber (aspartame) 3.4 gram powder in packet
1 packet feeding tube DAILY
Held
Eliquis 5 mg tablet
5 mg feeding tube BID
Hold Instructions: Resume on 11/02/24.
Discontinued
acetaminophen [Tylenol] 325 mg Tablet
650 mg feeding tube Q6HPRN PRN (Reason: MILD PAIN)
Discharge Orders:
Discharge Patient (As Directed); Ordered 11/29/24
Ordered By: Kavon López
Discharge Date and Time
Print Language: GREENLANDIC
--- NOTE | 2024-11-29 13:49 | W.PN.NEPH.HD ---
Assessment
-
Seen on HD. no new issues. VSS, access ok
for dc
Progress Note - Hemodialysis
-
Date of Service: November 29, 2024
Duration: 30 minutes and 3 hours
Potassium Bath: 3
Calcium Bath: 2.5
Opti-Dialyzer: 160
Ultrafiltration: Other (2kg)
Blood Flow: 400
Dialysate Flow: 600
Heparin: 0
EPO: [id number] units
--- NOTE | 2024-11-29 14:56 | PTCARENOTE ---
report to Zoila Turner
[2024-11-29] MEDS: RETACRIT 10000 UNITS IV (15:07)
[2024-11-29] MEDS: HEPARIN 3.6 UNITS INTRACATH (15:08)
[2024-11-29] MEDS: MERREM 500 MG IV (15:25)
[2024-11-29] MEDS: STERILE WATER FOR INJECTION 10 ML IV (15:25)
[2024-11-29] MEDS: PREVNAR 20 0.5 ML IM (15:28)
--- NOTE | 2024-11-29 18:23 | PTCARENOTE ---
Pt left via EMS without incident
== END 2024-11-29 18:30 | DRG 871 ==
LOC: IMU 19:17
PROVIDERS: Clinical Nurse Specialist Family Health; Hospitalist; Internal Medicine Nephrology; Nurse Practitioner Adult Health; Specialist; ADMITTING PHYSICIAN Hospitalist; ATTENDING PHYSICIAN Internal Medicine; CONSULT PHYSICIAN Internal Medicine Gastroenterology; CONSULT PHYSICIAN Internal Medicine Infectious Disease; CONSULT PHYSICIAN Specialist; EMERGENCY PHYSICIAN Emergency Medicine
PROC: 5A1D70Z Performance of Urinary Filtration, Intermittent, Less than 6 Hours Per Day (ICD-10-PCS; 2024-11-24)
DX: A41.59 Other Gram-negative sepsis (principal); J18.9 Pneumonia, unspecified organism; L89.154 Pressure ulcer of sacral region, stage 4; N18.6 End stage renal disease; D62 Acute posthemorrhagic anemia; D68.32 Hemorrhagic disorder due to extrinsic circulating anticoagulants; E87.1 Hypo-osmolality and hyponatremia; I13.2 Hypertensive heart and chronic kidney disease with heart failure and with stage 5 chronic kidney disease, or end stage renal disease; K92.0 Hematemesis; E86.1 Hypovolemia; I95.89 Other hypotension; Z74.01 Bed confinement status; D63.1 Anemia in chronic kidney disease; Z93.1 Gastrostomy status; I69.320 Aphasia following cerebral infarction; I69.365 Other paralytic syndrome following cerebral infarction, bilateral; K80.20 Calculus of gallbladder without cholecystitis without obstruction; I69.391 Dysphagia following cerebral infarction; D50.9 Iron deficiency anemia, unspecified; I48.0 Paroxysmal atrial fibrillation; Z79.01 Long term (current) use of anticoagulants; E11.22 Type 2 diabetes mellitus with diabetic chronic kidney disease; E87.6 Hypokalemia; F41.9 Anxiety disorder, unspecified; I50.9 Heart failure, unspecified; Z99.2 Dependence on renal dialysis
CPT/HCPCS: 71045; 74018; 74177; 80048; 80053; 82607; 82728; 82746; 83540; 83550; 83735; 85014; 85018; 85025; 85610; 86850; 86900; 86901; 86920; 87040; 87045; 87046; 87070; 87077; 87154; 87186; 87205; 87324; 87340; 87427; 87449; 90677; 93005; 93306; 96361; 96374; 99291; G0009; G0257; P9016; P9047; Q5106; Q9967

== ENCOUNTER 2024-12-13 23:29 | Inpatient (IN) | payer OTHER, SELFPAY ==
[2024-12-13] VITALS (9 sets, daily range): BP systolic 89–120; BP diastolic 54–62; BMI 28.0
--- NOTE | 2024-12-13 19:59 | ED.GENMED ---
History of Present Illness
<Cecille España PA-C - Last Filed: 12/14/24 03:30>
General
Chief Complaint: Rectal Bleeding
Source: spouse and senior living
Exam Limitations: none
Time Seen by Provider: 12/13/24 19:46
Nursing documentation reviewed up to this point in time: agreed with
History of Present Illness
History of Present Illness:
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 Patient is nonverbal and
unable to contribute to history. I did call and speak with patient's nurse at facility who states that they went to perform wound care on his sacral wounds and found him to be 'pouring' bright red blood from his rectum. His vital signs were stable
at that time. He was sent to the emergency department.
They state the patient was recently discharged from hospital after he was found to have GI bleeding. He is currently anticoagulated on Eliquis however has not received his evening dose yet today. They states he otherwise has been well since
discharge from hospital and has not had any known fever or other infectious symptoms. They state that he typically does have loose stools although has never had a known history of bloody stools.
Review of Systems
<Cecille España PA-C - Last Filed: 12/14/24 03:30>
Review of Systems
Allergies reviewed?: Yes
All Other Systems: ROS reviewed and negative except as documented in HPI and ROS
Phy Exam
<Cecille España PA-C - Last Filed: 12/14/24 03:30>
Physical Exam
Physical Exam:
Vitals: BP soft. Otherwise vital signs stable. Afebrile
General: Patient is chronically ill-appearing. Nonverbal, does not follow commands
Skin: Multiple large unstageable sacral wounds with granulation tissue and overlying slough. Scant bloody/serosanguineous drainage.
Head: Atraumatic
Eyes: Sclera nonicteric.
Throat: Dry mucous membranes. Protecting airway
Neck: Trachea midline.
Cardiac: Regular rate and rhythm, no murmurs.
Pulm: Normal respiratory effort, no wheezes, rales, rhonchi heard on exam
.
Abdomen: Abdomen soft. Diffuse tenderness. Feeding tube in place without surrounding erythema or drainage. Large abdominal scar.
Extremities: No evidence of cyanosis or edema. Palpable pulses bilaterally
Neuro: Alert. Nonverbal. Right sided hemiaplasia with right arm contracture
Psychiatric: Normal affect.
Course
<Cecille España PA-C - Last Filed: 12/14/24 03:30>
Orders/Labs/Results
Orders:
Orders
12/13/24 19:38
EKG [Electrocardiogram (*1)] Urgent
Reason for Study: Heart Failure, Left
12/13/24 19:39
EKG- Treatment ONCE
12/13/24 20:01
Lactic Acid Q4H
Comment: CANCEL 2nd LACTIC ACID IF 1st LACTIC ACID IS LESS THAN 2
12/13/24 20:02
Type+Screen Urgent
Complete Blood Count/With Diff Urgent
Comprehensive Metabolic Panel Urgent
PTT Urgent
Prothrombin Time Urgent
12/13/24 20:46
0.9% Sodium Chloride 1000 ml [Nss] 1,000 ml IV BOLUS
12/13/24 21:03
Abdomen/Pelvis wo Contrast CT [CT Abd/pelvis Wo Iv Cont] Urgent
Comment:
Reason For Exam: abdominal pain, sacral wounds
12/13/24 21:04
Piperacillin/Tazo 4.5 Gram [Zosyn] 4.5 gram in 100 ml IV NOW
12/13/24 21:05
Blood Culture Q30M
PHILL Source: Blood/Venous
Specimen Description:
Blood Culture Q30M
PHILL Source: Blood/Venous
Specimen Description:
STOOL [C difficile Antigen & Toxins] Urgent
PHILL Source: Feces/Stool
Specimen Description:
Date Specimen was Collected: 12/13/24
Time Specimen was Collected: 21:01
Stool Culture Urgent
PHILL Source: Feces/Stool
Specimen Description:
Date Specimen was Collected: 12/13/24
Time Specimen was Collected: 21:01
12/13/24 21:15
Vancomycin [Vancocin] 2,000 mg 0.9% Sodium Chloride 500 ml [Nss] 500 ml IV NOW
12/13/24 23:06
Admit/Transfer Patient As Directed
Co-Sign Provider:
Level of Care: Inpatient admission
Assign to:: Telemetry
Physician / Group: Orlin Mckoy
Diagnosis: acute GI bleed
Reason for Telemetry: Arrhythmia
Date to Stop Telemetry: 12/16/24
Time to Stop Telemetry: 11:00
Reason for Hospitalization: acute GI bleed
Expected length of stay greater than two midnights?: Yes
ELOS- Estimated Length of Stay in days: 3
I certify the patient meets the requirements for IP care: Yes
PRN Pain Medication Management As Directed
May give lesser potent ordered pain med per pt: Yes
preference::
Protocol:: Medication orders for pain may be administered in a
manner that supports deferring to patient preference
when the pt is:
- Requesting an ordered lesser potent pain medication.
Least to most potent pain medications are defined
as: acetaminophen < NSAID < tramadol < opioids
(morphine, oxycodone, hydromorphone).
- Requesting a lesser dose of the same medication IF
ORDERED.
- Requesting a less intrusive route of administration
if both routes are prescribed by the provider (PO <
IV).
12/13/24 23:08
Code Status As Directed
Resuscitation Status: Full Code
12/14/24 00:04
Acetaminophen [Tylenol] 650 mg TUBE Q4HPRN PRN mild pain/fever > 100.4F mild pain/fever > 100.4F
Lorazepam [Ativan] 0.5 mg TUBE BIDPRN PRN AXNIETY
12/14/24 00:04
Consult Notification Routine
Specialty to Notify: Gastroenterology
Consult Notification Routine
Specialty to Notify: Nephrology
Consult Notification Routine
Specialty to Notify: Vascular Surgery
Consult Vascular Surgery [Vascular Surgery Consult] Routine
Consulting Provider: Urbano Wellington III
Was physician already notified: No
Reason for consult: ischemic bowel vs. AVM
GASTROINTESTINAL CONSULT Routine
Consulting Provider: Melody Suarez
Was physician already notified: No
Reason for consult: GI bleed
NEPHROLOGY CONSULT Routine
Consulting Provider: Lawrence Reyna
Was physician already notified: No
Reason for consult: HD M-W-F
Activity As Directed
Activity Level: As Tolerated
INT (Intravenous Needle Therapy) As Directed
Comment: Place 2 IV catheters of the largest bore possible until stable
Intake/ Output As Directed
Frequency: Per unit guidelines
Orthostatic Vital Signs As Directed
Orthostatic VS Frequency: Now
Comment: then every four hours for twenty-four hours
Pneumatic Compression Sleeves As Directed
Type: Knee high
Vital Signs As Directed
Frequency: Per unit guidelines
Weight As Directed
Frequency: Once
Comment: on admission
DX Deep Vein Thrombosis Video Routine
12/14/24 00:13
H&H Q6H
Lactic Acid Q4H
Comment: CANCEL 2nd LACTIC ACID IF 1st LACTIC ACID IS LESS THAN 2
12/14/24 Breakfast
NPO
Allow oral meds: Yes
Allow clear liquids: No
Comment: medications via TUBE ok
Basic Metabolic Panel IN AM
Complete Blood Count/No Diff IN AM
12/14/24 08:00
Acetaminophen [Tylenol] 650 mg TUBE DAILY
Allopurinol [Zyloprim] 100 mg TUBE DAILY
Nystatin Suspension [Mycostatin Oral Suspension] 10 ml PO TID
Pantoprazole [Protonix IV] 40 mg IV BID
Sertraline HCl [Zoloft] 25 mg TUBE DAILY
Sucralfate Suspension [Carafate Suspension] 1 gm TUBE BID
Tramadol HCl [Ultram] 50 mg TUBE BID
12/14/24 12:04
H&H Q6H
12/14/24 18:04
H&H Q6H
12/16/24 11:00
DC Protocol for Telemetry ONCE
Abnormal Lab Results
12/13/24
20:02
WBC 22.8 H 10^3/uL
(4.8-10.8)
RBC 3.26 L 10^6/uL
(4.70-6.10)
Hgb 8.4 L g/dL
(13.0-18.0)
Hct 27.9 L %
(39.0-52.0)
MCH 25.8 L pg
(27.0-31.0)
MCHC 30.1 L g/dL
(33.0-37.0)
RDW 16.5 H %
(11.5-14.5)
Abs Immat Gran (auto) 0.2 H 10^3/uL
(0-0.05)
Absolute Neuts (auto) 20.9 H 10^3/uL
(1.4-6.5)
Absolute Lymphs (auto) 1.0 L 10^3/uL
(1.2-3.4)
Immature Gran % 0.8 H %
(0-0.5)
Neutrophils % 91.9 H %
(42.2-75.2)
Lymphocytes % 4.4 L %
(20.5-51.1)
PT 20.3 H Sec
(11.4-14.6)
APTT 49.0 H Sec
(23.4-35.0)
Sodium 133 L mmol/L
(135-145)
Chloride 96 L mmol/L
(98-107)
BUN 44 H mg/dl
(9-20)
Creatinine 2.2 H mg/dL
(0.7-1.3)
Glucose 135 H mg/dl
(70-99)
Alkaline Phosphatase 176 H U/L
(38-126)
Albumin 2.9 L g/dl
(3.5-5.0)
Crossmatch IS Only See Detail
12/13/24 20:02
12/13/24 20:02
Vital Signs
Initial and Last Documented VS:
Initial Vital Signs
BP
92/59
12/13/24 19:26
Last Documented Vital Signs
Temp Pulse Resp BP Pulse Ox
98.1 F 80 20 98/58 99
12/14/24 02:51 12/14/24 03:00 12/14/24 03:00 12/14/24 03:00 12/14/24 03:00
<Pedro Luis Loyd MD - Last Filed: 12/13/24 21:58>
Orders/Labs/Results
Orders:
Orders
12/13/24 19:38
EKG [Electrocardiogram (*1)] Urgent
Reason for Study: Heart Failure, Left
12/13/24 19:39
EKG- Treatment ONCE
12/13/24 20:01
Lactic Acid Q4H
Comment: CANCEL 2nd LACTIC ACID IF 1st LACTIC ACID IS LESS THAN 2
12/13/24 20:02
Type+Screen Urgent
Complete Blood Count/With Diff Urgent
Comprehensive Metabolic Panel Urgent
PTT Urgent
Prothrombin Time Urgent
12/13/24 20:46
0.9% Sodium Chloride 1000 ml [Nss] 1,000 ml IV BOLUS
12/13/24 21:03
Abdomen/Pelvis wo Contrast CT [CT Abd/pelvis Wo Iv Cont] Urgent
Comment:
Reason For Exam: abdominal pain, sacral wounds
12/13/24 21:04
Piperacillin/Tazo 4.5 Gram [Zosyn] 4.5 gram in 100 ml IV NOW
12/13/24 21:05
Blood Culture Q30M
PHILL Source: Blood/Venous
Specimen Description:
Blood Culture Q30M
PHILL Source: Blood/Venous
Specimen Description:
STOOL [C difficile Antigen & Toxins] Urgent
PHILL Source: Feces/Stool
Specimen Description:
Date Specimen was Collected: 12/13/24
Time Specimen was Collected: 21:01
Stool Culture Urgent
PHILL Source: Feces/Stool
Specimen Description:
Date Specimen was Collected: 12/13/24
Time Specimen was Collected: 21:01
12/13/24 21:15
Vancomycin [Vancocin] 2,000 mg 0.9% Sodium Chloride 500 ml [Nss] 500 ml IV NOW
12/13/24 23:06
Admit/Transfer Patient As Directed
Co-Sign Provider:
Level of Care: Inpatient admission
Assign to:: Telemetry
Physician / Group: Orlin Mckoy
Diagnosis: acute GI bleed
Reason for Telemetry: Arrhythmia
Date to Stop Telemetry: 12/16/24
Time to Stop Telemetry: 11:00
Reason for Hospitalization: acute GI bleed
Expected length of stay greater than two midnights?: Yes
ELOS- Estimated Length of Stay in days: 3
I certify the patient meets the requirements for IP care: Yes
PRN Pain Medication Management As Directed
May give lesser potent ordered pain med per pt: Yes
preference::
Protocol:: Medication orders for pain may be administered in a
manner that supports deferring to patient preference
when the pt is:
- Requesting an ordered lesser potent pain medication.
Least to most potent pain medications are defined
as: acetaminophen < NSAID < tramadol < opioids
(morphine, oxycodone, hydromorphone).
- Requesting a lesser dose of the same medication IF
ORDERED.
- Requesting a less intrusive route of administration
if both routes are prescribed by the provider (PO <
IV).
12/13/24 23:08
Code Status As Directed
Resuscitation Status: Full Code
12/14/24 00:04
Acetaminophen [Tylenol] 650 mg TUBE Q4HPRN PRN mild pain/fever > 100.4F mild pain/fever > 100.4F
Lorazepam [Ativan] 0.5 mg TUBE BIDPRN PRN AXNIETY
12/14/24 00:04
Consult Notification Routine
Specialty to Notify: Gastroenterology
Consult Notification Routine
Specialty to Notify: Nephrology
Consult Notification Routine
Specialty to Notify: Vascular Surgery
Consult Vascular Surgery [Vascular Surgery Consult] Routine
Consulting Provider: Urbano Wellington III
Was physician already notified: No
Reason for consult: ischemic bowel vs. AVM
GASTROINTESTINAL CONSULT Routine
Consulting Provider: Melody Suarez
Was physician already notified: No
Reason for consult: GI bleed
NEPHROLOGY CONSULT Routine
Consulting Provider: Lawrence Reyna
Was physician already notified: No
Reason for consult: HD M-W-F
Activity As Directed
Activity Level: As Tolerated
INT (Intravenous Needle Therapy) As Directed
Comment: Place 2 IV catheters of the largest bore possible until stable
Intake/ Output As Directed
Frequency: Per unit guidelines
Orthostatic Vital Signs As Directed
Orthostatic VS Frequency: Now
Comment: then every four hours for twenty-four hours
Pneumatic Compression Sleeves As Directed
Type: Knee high
Vital Signs As Directed
Frequency: Per unit guidelines
Weight As Directed
Frequency: Once
Comment: on admission
DX Deep Vein Thrombosis Video Routine
12/14/24 00:13
H&H Q6H
Lactic Acid Q4H
Comment: CANCEL 2nd LACTIC ACID IF 1st LACTIC ACID IS LESS THAN 2
12/14/24 Breakfast
NPO
Allow oral meds: Yes
Allow clear liquids: No
Comment: medications via TUBE ok
Basic Metabolic Panel IN AM
Complete Blood Count/No Diff IN AM
12/14/24 08:00
Acetaminophen [Tylenol] 650 mg TUBE DAILY
Allopurinol [Zyloprim] 100 mg TUBE DAILY
Nystatin Suspension [Mycostatin Oral Suspension] 10 ml PO TID
Pantoprazole [Protonix IV] 40 mg IV BID
Sertraline HCl [Zoloft] 25 mg TUBE DAILY
Sucralfate Suspension [Carafate Suspension] 1 gm TUBE BID
Tramadol HCl [Ultram] 50 mg TUBE BID
12/14/24 12:04
H&H Q6H
12/14/24 18:04
H&H Q6H
12/16/24 11:00
DC Protocol for Telemetry ONCE
Abnormal Lab Results
12/13/24
20:02
WBC 22.8 H 10^3/uL
(4.8-10.8)
RBC 3.26 L 10^6/uL
(4.70-6.10)
Hgb 8.4 L g/dL
(13.0-18.0)
Hct 27.9 L %
(39.0-52.0)
MCH 25.8 L pg
(27.0-31.0)
MCHC 30.1 L g/dL
(33.0-37.0)
RDW 16.5 H %
(11.5-14.5)
Abs Immat Gran (auto) 0.2 H 10^3/uL
(0-0.05)
Absolute Neuts (auto) 20.9 H 10^3/uL
(1.4-6.5)
Absolute Lymphs (auto) 1.0 L 10^3/uL
(1.2-3.4)
Immature Gran % 0.8 H %
(0-0.5)
Neutrophils % 91.9 H %
(42.2-75.2)
Lymphocytes % 4.4 L %
(20.5-51.1)
PT 20.3 H Sec
(11.4-14.6)
APTT 49.0 H Sec
(23.4-35.0)
Sodium 133 L mmol/L
(135-145)
Chloride 96 L mmol/L
(98-107)
BUN 44 H mg/dl
(9-20)
Creatinine 2.2 H mg/dL
(0.7-1.3)
Glucose 135 H mg/dl
(70-99)
Alkaline Phosphatase 176 H U/L
(38-126)
Albumin 2.9 L g/dl
(3.5-5.0)
Crossmatch IS Only See Detail
12/13/24 20:02
12/13/24 20:02
Vital Signs
Initial and Last Documented VS:
Initial Vital Signs
BP
92/59
12/13/24 19:26
Last Documented Vital Signs
Temp Pulse Resp BP Pulse Ox
98.1 F 80 20 98/58 99
12/14/24 02:51 12/14/24 03:00 12/14/24 03:00 12/14/24 03:00 12/14/24 03:00
<Cecille España PA-C - Last Filed: 12/14/24 03:30>
MDM/Problems Addressed
Differential Diagnosis Includes:
Not limited to: Acute GI bleeding, ischemic bowel, diverticulitis, sepsis, sacral wound, etc.
MDM/Problems Addressed:
59-year-old chronically ill, nonverbal male with a history of right-sided hemiplegia from prior stroke presents with a reported history of rectal bleeding. He has a significant past medical history including multiple recent admissions for GI
bleeding and is currently on Eliquis for anticoagulation.
On arrival, the patient is afebrile but noted to have soft blood pressure. Other vital signs are within normal limits. Physical exam is limited due to the patient's nonverbal status but reveals a soft abdomen with a G-tube in place and no signs of
cellulitis. He has diffuse abdominal tenderness that is difficult to localize. Multiple large unstageable sacral and perineal pressure ulcers are present, some of which are oozing blood. No active rectal bleeding was noted on exam.
Laboratory evaluation is notable for a significant leukocytosis, suggesting a possible infectious process. Hemoglobin is stable. Chemistry panel is consistent with known chronic renal insufficiency. Lactic acid is at the upper limit of normal.
Given concern for infection in the setting of leukocytosis and hypotension, broad-spectrum IV antibiotics were initiated.
A CT scan of the abdomen and pelvis was obtained, which showed multiple abnormalities concerning for possible bowel ischemia, inflammation/infection, and progressive bilateral pneumonia.
The exact source of bleeding is unclear at this time. Differential includes bleeding from unstageable sacral wounds versus lower GI bleeding due to bowel infection or ischemia. Given the patient�s chronic debility, complex presentation, and abnormal
imaging and lab findings, admission is clearly indicated for further diagnostic workup and management.
Patient was accepted to the hospitalist service in stable condition. I spoke with the patient�s by phone and updated her on the findings and plan. All questions were answered and she is aware of the admission.
Chronic conditions affecting care:
Atrial fibrillation on Eliquis, hypertension, CKD on dialysis, history CVA with right sided hemiaplasia
Acute Exacerbation and/or Progression of Chronic Illness:
Acute rectal bleeding either infectious vs ischemic vs bleeding from sacral wound
<Cecille España PA-C - Last Filed: 12/14/24 03:30>
*Radiology
Radiology exam reviewed: radiology read reviewed
*Pulse Oximetry
SaO2: 97
Oxygen Mode of Delivery: Room air
Patient hypoxic: no
*EKG
Interpreted by ED Provider?: Yes
EKG Intrepretation Date: 12/13/24
Interpretation: normal
Comparison EKG: changes noted
Heart Rate: 88
Rate: normal
Rhythm: sinus
[place]: normal axis
Interval: normal QT interval
QRS Pattern: normal QRS
Ischemia: no ischemia
*Lecturer Of Portuguese Interpretation
Rate: normal
Interpretation: normal
Heart Rate: 86
Rhythm: sinus
*Critical Care Note
Total Time (30-74mins, 75-104mins- exclusive of procedures): Not Applicable
<Cecille España PA-C - Last Filed: 12/14/24 03:30>
Patient Management
Discussion with other providers: Hospitalist
Escalation/DeEscalation of care consider admission/obs:
Admit for further management
ED Attending Note
<Cecille España PA-C - Last Filed: 12/14/24 03:30>
-
Portions of this chart may have been created with voice recognition software.� Occasional wrong word or��sound alike� substitutions may have occurred due to the inherent limitations of voice recognition software.
<Pedro Luis Loyd MD - Last Filed: 12/13/24 21:58>
ED Attending Note
Patient seen and examined by attending physician: Yes
I performed the substantive portion of visit, reviewed & personally made and approve the management plan that is documented in note by myself or MUNIRA.: Yes
ED Attending Note:
59-year-old male came in for recurrent rectal bleeding. History of similar episodes in the past. Just left the hospital about 2 weeks ago for same. Unable to add history from the patient. History of C. difficile intra-abdominal abscess CVA
paraplegia nonverbal A-fib on Eliquis sacral ulcers. Admitted for erosive gastritis weeks ago
On exam patient is chronically ill-appearing right hemiplegia. Will follow very simple commands with his left hand. Does not. No respiratory distress. G-tube in place abdomen nontender. Bloody mucousy stool noted in the perineal area.
Impression is recurrent GI bleed. Will get a CTA to evaluate for ischemic bowel and to check for significant bleeding although unlikely. Labs electrolytes type and screen. Warrants inpatient management.
Bleeding seems to be much more likely to be from his sacral wounds.Colitis and ischemic bowel also in the differential
No obvious blood on rectal exam per the physician occupational therapy assistant. Although difficult to tell with the blood in the general area. Significant leukocytosis.
Discharge Plan
Departure
Patient Disposition: Admit
Date of Disposition: 12/13/24
Time of Disposition: 22:18
Presentation/result/management discussed w/ accepting MD/DO: Hospitalist
Discharge Problem:
Acute GI bleeding, Sacral wound
Interventions
Interventions:
*Risk Screen - Suicide Last Done: 12/13/24 19:34
*General Assessment Last Done: 12/13/24 19:34
*Neglect/Abuse Screening Last Done: 12/13/24 19:34
*ED- Fall Risk Assessment Last Done: 12/13/24 19:34
*ED COVID-19 Vaccine History Last Done: 12/13/24 19:34
*ED Influenza Vaccine History Last Done: 12/13/24 19:34
FB-Cuzptc-Aymtvlchav Assessment Last Done: 12/13/24 19:56
ED- Cardiac Assessment Last Done: 12/13/24 19:56
ED- Pulmonary Assessment Last Done: 12/13/24 19:56
[2024-12-13 20:19] LABS: Hematocrit 27.9 % (39.0-52.0); Hemoglobin 8.4 g/dL (13.0-18.0); Mean Corp Hgb Conc. 30.1 g/dL (33.0-37.0); Mean Corpuscular Volume 85.6 fL (80.0-94.0); Platelet Count 357 10^3/uL (130-400); Red Cell Dist. Width 16.5 % (11.5-14.5)
[2024-12-13 20:23] LABS: INR 1.72; PT 20.3 Sec (11.4-14.6)
[2024-12-13 20:24] LABS: APTT 49.0 Sec (23.4-35.0)
[2024-12-13 20:34] LABS: ALT (SGPT) 25 U/L (0-50); AST (SGOT) 32 U/L (17-59); Albumin 2.9 g/dl (3.5-5.0); Alkaline Phosphatase 176 U/L (38-126); Blood Urea Nitrogen 44 mg/dl (9-20); Calcium 8.5 mg/dl (8.4-10.2); Carbon Dioxide 28 mmol/L (22-30); Chloride 96 mmol/L (98-107); Estimated Creatinine Clearance 36 ml/min; Glucose 135 mg/dl (70-99); Potassium 3.5 mmol/L (3.5-5.1); Sodium 133 mmol/L (135-145); Total Protein 7.0 g/dl (6.3-8.2); eGFR 33.66
[2024-12-13 20:44] LABS: Nucleated Red Blood Cells % 0 % (-)
[2024-12-13] MEDS: NSS 1000 IV (21:10)
[2024-12-13] MEDS: ZOSYN 100 IV (21:15)
[2024-12-13] MEDS: VANCOCIN 540 MG IV (21:56)
--- NOTE | 2024-12-13 22:26 | HPS.HSE ---
Family Physician
-
Family Physician: Scarlett Thompson
Chief Complaint
-
rectal bleeding
History of Present Illness
Patient is a 59-year-old male with past medical history significant for hypertension, paroxysmal atrial fibrillation, ESRD on HD and Hx CVA with right-sided hemiaplasia who presented to [facility] ED from [facility] via EMS for evaluation of rectal
bleeding. ED staff was able to speak with facility nurse who reported large amount of rectal bleed, reported as bright red blood. ED nurse placed rectal tube with blood return. He is currently on Eliquis, last dose this morning. No reported fevers,
chills, cough, shortness of breath, chest pain, abdominal pain, nausea or vomiting.
Medical History
Past Medical History
Past Medical History: Reports Other
Additional Past Medical History:
hypertension
atrial fibrillation
end-stage renal disease on hemodialysis Friday via right IJ PermCath, he is status post a left upper extremity AV fistula 1 month ago
Hx CVA with residual aphasia and paraplegia, residual dysphagia status post PEG
Past Surgical History: Reports Other
Additional Past Surgical History:
PEG tube placement
exploratory laparotomy
left upper extremity AV fistula
Social History
Unable to obtain full social history at this time due to: Patient Non-verbal
Family History
Family History: Not pertinent
Allergies / Home Medications
Allergies reflects when Allergies were last updated in [email or web address].
Home Medications with original date entered in [email or web address]
Allergy/Medication List:
Allergies
Allergy/AdvReac Type Severity Reaction Status Date / Time
No Known Allergies Allergy Verified 12/13/24 21:15
Home Medications
acetaminophen 325 mg tablet (Tylenol) 650 mg feeding tube DAILY mild Pain 11/22/24
allopurinol 100 mg tablet 100 mg feeding tube DAILY Gout 11/22/24
bisacodyl 10 mg rectal suppository (Dulcolax (bisacodyl)) 10 mg MA DAILYPRN PRN if no bm aftr sorbitol 11/22/24
loperamide 2 mg capsule 2 mg feeding tube Q8HPRN PRN DIARRHEA 11/22/24
loperamide 2 mg capsule 4 mg feeding tube BID diarrhea 11/22/24
lorazepam 0.5 mg tablet 0.5 mg feeding tube BIDPRN PRN AXNIETY 11/22/24
nystatin 100,000 unit/mL oral suspension 10 ml buccal TID Infection 11/22/24
sertraline 25 mg tablet 25 mg feeding tube DAILY Mental Health/Anxiety 11/22/24
sorbitol 70 % solution 30 ml PO DAILYPRN PRN CONSTIPATION/ VIA PEG TUBE 11/22/24
tramadol 50 mg tablet 50 mg feeding tube BID moderate Pain 11/22/24
Metamucil Free & Natural 43% 1 packet feeding tube DAILY Constipation 12/13/24
acetaminophen 325 mg tablet (Tylenol) 650 mg feeding tube Q6HPRN PRN mild pain 12/13/24
apixaban 5 mg tablet (Eliquis) 5 mg feeding tube BID afib 12/13/24
pantoprazole 40 mg granules delayed-release for susp in packet 40 mg feeding tube BID gerd 12/13/24
sucralfate 100 mg/mL oral suspension 1 g feeding tube BID gerd 12/13/24
Review of Systems
-
Unable to obtain full review of systems at this time due to: Patient Non-verbal
Physical Exam
Vital Signs
Vital Signs
Temp Pulse Resp BP Pulse Ox
97.6 F 78 20 102/54 100
12/13/24 20:00 12/13/24 22:15 12/13/24 22:15 12/13/24 22:01 12/13/24 22:15
Physical Exam
General: Well Developed, Well Nourished, No Apparent Distress and Appears Chronically Ill
HEENT: NormoCephalic, Moist mucous membranes, Nose Appears Normal and Ears Appear Normal
Respiratory: Clear and Non Labored Respirations; No Wheezes, Rales, Rhonchi or Crackles
Cardiac: S1/S2 and Regular Rhythm; No Murmur, Rub, Gallop or Peripheral Edema
GI: Soft, Non Distended, Normal Bowel Sounds and Peg Tube
Rectal: Other (rectal tube in place with bright red liquid stool draining )
Musculoskeletal: No Clubbing, No Cyanosis and No Edema
Skin: Warm, IV/Catheter Site and Other (large sacral decub with active bleeding )
Neuro: Awake, Alert and Other (Nonverbal, Right sided hemiaplasia with right arm contracture)
Laboratory Results
-
12/13/24 20:02
12/13/24 20:
Laboratory Results
PT 20.3 Sec (11.4-14.6) H 12/13/24 20:
INR 1.72 12/13/24:
APTT 49.0 Sec (23.4-35.0) H 12/13/24 20:
Lactic Acid 1.9 mmol/L (0.7-2.0) 12/13/24 20:
Total Bilirubin 0.8 mg/dl (0.2-1.3) 12/13/24 20:
AST 32 U/L (17-59) 12/13/24 20:
ALT 25 U/L (0-50) 12/13/24 20:
Alkaline Phosphatase 176 U/L (38-126) H 12/13/24 20:
Data Reviewed
-
CT Scan: Report Reviewed by me (Abd/Pel CT: Diffuse bowel wall thickening and portal venous gas suggestive of possible ischemic bowel. No evidence for bowel perforation at this time. Thickening of the ascending colon likely inflammatory or ischemic
in etiology; however, recommend correlation with colonoscopy to rule out underlyin)
Medical Tests (Nuc Med, Echo, EKG etc): Report Reviewed by me (EKG: NORMAL SINUS RHYTHM)
Lab Data: Labs Reviewed by me (WBC 22.8, hgb 8.4, hct 27.9, neut 91.9, Na+ 133, BUN 44, Creat 2.2, )
Impression/Plan
-
IMPRESSION/PLAN:
#rectal bleeding 2/2 GI bleed vs. bleeding sacral wound vs. ischemic bowel (acute vs. chronic) vs. AVM
WBC 22.8, hgb 8.4, hct 27.9, neut 91.9
Abd/Pel CT: Diffuse bowel wall thickening and portal venous gas suggestive of possible ischemic bowel. No evidence for bowel perforation at this time.
Thickening of the ascending colon likely inflammatory or ischemic in etiology; however, recommend correlation with colonoscopy to rule out underlying mass.
Large sacral decubitus ulcer as described.
Bilateral lower lobe pneumonia, progressed.
EKG: NORMAL SINUS RHYTHM
- Admit to telemetry
- Consult GI
- Consult Vascular
- Hold Eliquis
- Hold tube feedings
- blood consent obtained via phone with patients (witnessed by this provider and Dr. Orlin Mckoy), scanned to chart
- trend H/H
#atrial fibrillation
- hold Eliquis
#end-stage renal disease
on hemodialysis [id number]
Na+ 133, BUN 44, Creat 2.2
- received HD today
- Consult Nephrology for HD
#Hx CVA
residual aphasia and paraplegia, residual dysphagia status post PEG
#hypertension
Code status: full code
DVT prophylaxis: SCDs
--- NOTE | 2024-12-13 22:41 | W.PN.UPDATE ---
Update Note
Progress Note Update
This note serves as an addendum to the H&P by vamp maker MUNIRA�
Italia Merino
HPI
59M Res @ [facility] non-verbal, PEG, parplegia s/e CVA, ESRD on HD, Chr E Liquis , Prx AF, C DIff carrier, chr sacral ulcers, HX GIB seen at ER:
- for evaluation for rectal bleeding this evening.
- nurse at facility who states that they went to perform wound care on his sacral wounds and found him to be 'pouring' bright red blood from his rectum.
- on chr Eliquis for Prx AF but not received it this evening
@ ER : stable VSS
@ ER
- multiple sacral wound at different stages noted but no blood in the diaper
- Rectal tube and noted blood return
Relevant VS
Temp Pulse Resp BP Pulse Ox
97.6 F 78 20 102/54 100
12/13/24 20:00 12/13/24 22:15 12/13/24 22:15 12/13/24 22:01 12/13/24 22:15
PE
Gen: NAD , non verbal
HEENT: Pale complexion
Neck: supple
Lungs: symmetric AE
Cor: RRR S 1s2
Abdomen:�obese , PEG, relative left-sided 'bulging' of the intestinal tract, atrophy of the rectus abdominis musculature 2/2 bedbound status
Perianal region: multiples sacral wound at different stages , no blood in the diaper
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
Relevant Data
11/29/24 12/13/24
11:54 20:02
WBC 13.3 H 22.8 H
Hgb 7.8 L 8.4 L
Plt Count 371 357
11/29/24 12/13/24 12/13/24
11:54 20:01 20:02
INR 1.72
Sodium 133 L
Potassium 3.5
Chloride 96 L
Carbon Dioxide 28
BUN 55 H 44 H
Creatinine 3.4 H 2.2 H
eGFR 19.96 33.66
Lactic Acid 1.9
Albumin 2.9 L
12/13/24 CT Abd/pelvis Wo Iv Cont
- Diffuse bowel wall thickening and portal venous gas suggestive of possible ischemic bowel.
- No evidence for bowel perforation at this time.
- Thickening of the ascending colon likely inflammatory or ischemic in etiology; however, recommend correlation with colonoscopy to rule out underlying mass.
- Large sacral decubitus ulcer as described.
- Bilateral lower lobe pneumonia, progressed.
11/23/24 CT AP W IV
- Moderate small bowel wall thickening in the right abdomen..
- New. Differential diagnoses include inflammation, infection and less likely ischemia.
- Probable mild mid descending colon colitis.
- Mild left lower lobe airspace disease concerning for pneumonia. Mildly improved.
- Hepatomegaly. Improved
- Gallstones. Stable.
- Bilateral too small to characterize hypodense renal lesions likely benign cysts. Stable.
- [place] catheter in the bladder. Stable
- Severe anasarca. Stable.
HX recent admission 11/22/24 - 11/29/24
DC Dxs:
Sepsis 2/2 K.pneumoniae Bacteremia possibly 2/2 mild left lower lobe airspace disease concerning for PNA,
Sacral/ischial decub wounds stage II
Ischial wound stage I or II close proximity rectal area
ASSESSMENT & PLAN
Pending Rx reconciliation
Acute rectal bleed - blood return with rectal tube placement @ ER
Diffuse bowel wall thickening and portal venous gas suggestive of possible ischemic bowel.
DDX: Ischemic BW ( acute vs chronic ) vs AVM
Current Hgb 8.4 is higher than base line mid 7s due to ACDz
- No ST
- Mild hypotensive but HX chr hypotension is seems at baseline
- Hold Eliquis
- Hold PEG TF
- IV PPI BID
- T & S , Blood consented and scanned + , T & S
- Consult GI and vascular
Recent severe erosive gastritis(no H. pylori on recent path)
HX Prx AF
- Hold Eliquis
ESRD on HD ( MWF)
- Nephro consult for HD
HX Chr Diarrhea
HX C Diff carrier
Dysphagia on PEG: hold TF
HX CVA with residual aphasia and paraplegia
Hepatosplenomegaly
DVT Px: SCD
Full code
IP TLM
[2024-12-14] VITALS (38 sets, daily range): BP systolic 78–123; BP diastolic 44–66; BMI 28.0
[2024-12-14 00:35] LABS: Hematocrit 22.4 % (39.0-52.0); Hemoglobin 7.0 g/dL (13.0-18.0)
--- NOTE | 2024-12-14 01:18 | W.PN.UPDATE ---
Update Note
Progress Note Update
hgb 7.0, RN reports bleeding from sacral wounds, and having brown stools. Blood consent signed and in chart, Type and screen done, will order 1 unit of PRBC's.
[2024-12-14 06:49] LABS: Hematocrit 26.8 % (39.0-52.0); Hemoglobin 8.6 g/dL (13.0-18.0); Mean Corp Hgb Conc. 32.1 g/dL (33.0-37.0); Mean Corpuscular Volume 86.5 fL (80.0-94.0); Platelet Count 319 10^3/uL (130-400); Red Cell Dist. Width 15.9 % (11.5-14.5)
[2024-12-14 06:58] LABS: Blood Urea Nitrogen 49 mg/dl (9-20); Calcium 8.1 mg/dl (8.4-10.2); Carbon Dioxide 25 mmol/L (22-30); Chloride 100 mmol/L (98-107); Estimated Creatinine Clearance 38 ml/min; Glucose 102 mg/dl (70-99); Potassium 3.6 mmol/L (3.5-5.1); Sodium 132 mmol/L (135-145); eGFR 35.59
--- NOTE | 2024-12-14 07:11 | CON.GI ---
Addendum entered and electronically signed by Meldoy Suarez MD 12/14/24 21:00:
I saw and examined the patient.
The PLANNER CHIEF or PA's note was reviewed and I agree with the note.
Comment: Jordon is an 59yo M [facility] resident with h/o PAF on Eliquis, paraplegia due to CVA s/p multiple PEGs last 05/2023 complicated by intra-abd abscess, ESRD on HD and Cdiff, DM,CHF, Multiple decubitus ulcers who lives at [place]
[facility] p/w rectal bleeding 12/13/24. He was admitted twice in november 2024, once for vomiting and worsening Hbg down to 6.8, prior to that in 11/02-11/11 for similar issues and EGD 11/03/24 with diffuse gastritis. No intervention done 11/23 visit as
bleeding resolved. On admission, hemoglobin was 8.4, baseline between 7.7 and 8.3, received 1 unit of packed red cells transfusion this visit, rectal bag showing about 400 cc of brown/dark red blood mixed. Patient nonverbal and history could not
be obtained. He had CT scan of the abdomen and pelvis performed on admission that showed diffuse bowel wall thickening and portal venous gas suggestive of possible ischemic bowel without evidence of perforation. Ascending colon thickening noted as
well. Bilateral lower lobe pneumonia which seems to have progressed. He had repeat CT scan today which is still not reported yet.
- Rectal bleeding of unclear etiology
Given CT scan shows possible ischemic colitis, agree with broad-spectrum antibiotics, currently is on meropenem, combination.
Await repeat CT scan from today
Abdominal exam without any guarding or rigidity
Monitor H&H, transfuse as needed
Given multiple medical problems, hold off on urgent endoscopic evaluation.
- History of C. difficile, currently on oral vancomycin
Stool C. difficile negative this time
- Leukocytosis, blood cultures pending
Original Note:
Consultation
-
Date/Time Consultation Requested: 12/14/243
Date/Time Consultation Performed: 12/14/24714
Requesting Provider: PENG Henriquez
Performing Provider: PENG Casper, Melody Suarez MD
Reason for Consultation: rectal bleeding
Medical History
Chief Complaint / HPI
Chief Complaint: rectal bleeding
History of Present Illness:
Pt is a 59 year old man with a past medical history significant for PAF on Eliquis, CVA with residual paraplegia/aphasia, s/p trach with removal, PEG tube placed in Mar 2023 w/ h/o intraabdominal abscess with necrotizing infection requiring
multiple surgeries with removal and replacement of PEG placement (May 2023) and recent change to balloon tube, prior c-diff August 2024 then neg in November, cholelithiasis, NIDDM, CHF, ESRD on Dialysis, hypertension with admission DH 11/02- 11/11
with hematemesis with erythematous mucosa on contact on EGD, diarrhea with c-diff infection in summer and adjustment of antidiarrheal medication, urinary retention with griffiths in place with concern for sacral wound and discussion of colonic
diversion for wound management but family declined, and anemia requiring transfusion during admission. He returned 11/22-11/29- with concern for PNA with sepsis, leukocytosis, acute on chronic anemia multifactorial along with multiple other issues.
Goals of care were noted were discussed with family with continued full code status. Pt now returns with rectal bleeding. On admission multiple other issues with bleeding from sacral wound, hypotension with concern for sepsis and abnormal CT with
concern for ischemic bowel without perforation, Ascending thickening r/o mass, large sacral wound and b/l LL PNA.
Pt is non verbal so limited subjective data on admission.
EGD: 11/03/24 protano - Normal esophagus - Erythematous mucosa in the gastric body, fundus, and antrum. Biopsied. Suspect this was the cause of the hematemesis and anemia- Normal examined duodenum.
Past Medical History
Past Medical History: Arrhythmias (PAF on Eliquis ), CHF, CVA, HTN, NIDDM, Renal Failure (on Dialysis) and Other (cholelithiasis, chronic sacral wound, prior c-diff august 2024)
Past Surgical History: Other ( h/o intraabdominal abscess with necrotizing infection requiring multiple surgeries with removal and replacement of PEG placement (May 2023),)
Social History
Tobacco: Non-Smoker (per chart)
Alcohol: None (per chart)
Drug: None (per chart )
Personal:
Living: [facility]
Employment: Not Employed
Family History
Family History: Unable to Obtain (pt non verbal )
Allergies / Home Medications
Allergy/AdvReac Type Severity Reaction Status Date / Time
No Known Allergies Allergy Verified 12/13/24 21:15
�Medication �Instructions �Recorded
acetaminophen 325 mg tablet 650 mg feeding tube DAILY mild Pain 11/22/24
(Tylenol)
allopurinol 100 mg tablet 100 mg feeding tube DAILY Gout 11/22/24
bisacodyl 10 mg rectal suppository 10 mg ND DAILYPRN PRN if no bm 11/22/24
(Dulcolax (bisacodyl)) aftr sorbitol
loperamide 2 mg capsule 2 mg feeding tube Q8HPRN PRN 11/22/24
DIARRHEA
loperamide 2 mg capsule 4 mg feeding tube BID diarrhea 11/22/24
lorazepam 0.5 mg tablet 0.5 mg feeding tube BIDPRN PRN 11/22/24
AXNIETY
nystatin 100,000 unit/mL oral 10 ml buccal TID Infection 11/22/24
suspension
sertraline 25 mg tablet 25 mg feeding tube DAILY Mental 11/22/24
Health/Anxiety
sorbitol 70 % solution 30 ml PO DAILYPRN PRN 11/22/24
CONSTIPATION/ VIA PEG TUBE
tramadol 50 mg tablet 50 mg feeding tube BID moderate 11/22/24
Pain
Metamucil Free & Natural 43% 1 packet feeding tube DAILY 12/13/24
Constipation
acetaminophen 325 mg tablet 650 mg feeding tube Q6HPRN PRN 12/13/24
(Tylenol) mild pain
apixaban 5 mg tablet (Eliquis) 5 mg feeding tube BID afib 12/13/24
pantoprazole 40 mg granules 40 mg feeding tube BID gerd 12/13/24
delayed-release for susp in packet
sucralfate 100 mg/mL oral 1 g feeding tube BID gerd 12/13/24
suspension
Review of Systems
-
Unable to obtain full review of systems at this time due to: Patient Non Verbal
History Source: Other (reviewed with nursing staff, no family present)
Abdomen/GI: Reports Diarrhea, Bloody Stools (rectal tube with blood in tubing ) and Other
Skin: Reports Other (large sacral wound )
Neurological: Reports Weakness
Hematologic/Lymphatic: Reports Bleeding
Vital Signs
Temp Pulse Resp BP Pulse Ox
98.2 F 89 11 99/56 98
12/14/24 04:11 12/14/24 06:45 12/14/24 06:45 12/14/24 06:03 12/14/24 06:45
Physical Exam
Exam
General: Other (eyes open occasional attempt at mouthing words but non vocal )
HEENT: Normocephalic and Anicteric
Respiratory: Other (decreased bases )
Cardiac: Other (tachy with turning )
GI: Soft, Non Distended and Other (large abdomen with large abdominal healed wound. new balloon peg in place -- irrigated with clear fluid no bleeding, )
Rectal: Other (rectal exam with rectal device in place with some blood drainage in tube, local red blood in rectal area, large sacral wound with bleeding, )
Musculoskeletal: No Clubbing and No Cyanosis
Skin: Warm and Dry
Neuro: Other (opens eyes but unable to communicate )
Psych: Calm
Results
WBC 19.0 10^3/uL (4.8-10.8) H 12/14/24 06:27
Hgb 8.6 g/dL (13.0-18.0) L D 12/14/24 06:27
Hct 26.8 % (39.0-52.0) L 12/14/24 06:27
MCV 86.5 fL (80.0-94.0) 12/14/24 06:27
Plt Count 319 10^3/uL (130-400) 12/14/24 06:27
Absolute Neuts (auto) 20.9 10^3/uL (1.4-6.5) H 12/13/24 20:02
PT 20.3 Sec (11.4-14.6) H 12/13/24 20:02
INR 1.72 12/13/24 20:02
APTT 49.0 Sec (23.4-35.0) H 12/13/24 20:02
Sodium 132 mmol/L (135-145) L 12/14/24 06:27
Potassium 3.6 mmol/L (3.5-5.1) 12/14/24 06:27
Chloride 100 mmol/L (98-107) 12/14/24 06:27
Carbon Dioxide 25 mmol/L (22-30) 12/14/24 06:27
BUN 49 mg/dl (9-20) H 12/14/24 06:27
Creatinine 2.1 mg/dL (0.7-1.3) H 12/14/24 06:27
Calcium 8.1 mg/dl (8.4-10.2) L 12/14/24 06:27
Total Bilirubin 0.8 mg/dl (0.2-1.3) 12/13/24 20:02
AST 32 U/L (17-59) 12/13/24 20:02
ALT 25 U/L (0-50) 12/13/24 20:02
Alkaline Phosphatase 176 U/L (38-126) H 12/13/24 20:02
Diagnostic Image Results:
12/13/24 CT Abd/pelvis Wo Iv Cont
Diffuse bowel wall thickening and portal venous gas suggestive of possible ischemic bowel. No evidence for bowel perforation at this time.
Thickening of the ascending colon likely inflammatory or ischemic in etiology; however, recommend correlation with colonoscopy to rule out underlying mass.
Large sacral decubitus ulcer as described.
Bilateral lower lobe pneumonia, progressed
11/23/24 CT Abd/pelvis W Iv Cont
Impression: Moderate small bowel wall thickening in the right abdomen.. New. Differential diagnoses include inflammation, infection and less likely ischemia.
Probable mild mid descending colon colitis.
Mild left lower lobe airspace disease concerning for pneumonia. Mildly improved.
Hepatomegaly. Improved
Gallstones. Stable.
Bilateral too small to characterize hypodense renal lesions likely benign cysts. Stable.
Lack of excretion from the kidney consistent with a history of end-stage renal disease and hemodialysis.
Increased density in the bladder suggesting hemorrhagic products versus retained IV contrast.. Progressed.
Griffiths catheter in the bladder. Stable
Severe anasarca. Stable.
11/02/24 CT Abd/pel W Iv And Oral Contr
Limited evaluation of intestinal tract as a result of several factors including marked beam hardening artifact from the patient's bilateral upper extremities, motion artifact and lack of oral contrast opacification of majority of large bowel. No
intestinal obstruction or free air.
Some suspected mild thickening of nondilated loops of proximal to mid small bowel, nonspecific, could represent enteritis.
Markedly limited evaluation of the descending colon, sigmoid and rectum without oral contrast opacification and with some beam hardening artifact, some at least SUSPECTED WALL THICKENING SUCH COLITIS.
Lack of demonstrable renal excretion bilaterally compatible with ESRD and hemodialysis. Small bilateral low-attenuation renal lesions too small to characterize.
Hepatosplenomegaly.
Bilateral lower lobe subsegmental atelectasis, left greater than right, cannot exclude left lower lobe pneumonia, evaluation overall limited as a result of marked beam hardening artifact.
Cholelithiasis.
Cannot exclude small pericardial effusion, limited by beam hardening artifact.
Marked edematous changes widespread throughout the abdominal and pelvic wall.
Marked atrophy of the rectus abdominis musculature with mild relative left-sided 'bulging' of the intestinal tract.
11/10/24 abd X ray
IMPRESSION: Nonobstructive bowel gas pattern.
11/22/24 CXR-
No acute cardiopulmonary process.
Prior GI Procedures:
EGD: 11/03/24 [facility]ano
- Normal esophagus.
- Erythematous mucosa in the gastric body, fundus, and antrum.
Biopsied. Suspect this was the cause of the hematemesis and anemia.
- Normal examined duodenum.
Colonoscopy: unknown
Assessment / Plan
-
Pt is a 59 year old man with a past medical history significant for PAF on Eliquis, CVA with residual paraplegia/aphasia, s/p trach with removal, PEG tube placed in Mar 2023 w/ h/o intraabdominal abscess with necrotizing infection requiring
multiple surgeries with removal and replacement of PEG placement (May 2023) and recent change to balloon tube, prior c-diff August 2024 then neg in November, cholelithiasis, NIDDM, CHF, ESRD on Dialysis, hypertension with admission DH 11/02- 11/11
with hematemesis with erythematous mucosa on contact on EGD, diarrhea with c-diff infection in summer and adjustment of antidiarrheal medication, urinary retention with with concern for sacral wound and discussion of colonic diversion for wound
management but family declined, and anemia requiring transfusion during admission. He returned 11/22-11/29- with concern for PNA with sepsis, leukocytosis, acute on chronic anemia multifactorial along with multiple other issues. Goals of care were
noted were discussed with family with continued full code status. Pt now returns with rectal bleeding. On admission multiple other issues with bleeding from sacral wound, hypotension with concern for sepsis and abnormal CT with concern for ischemic
bowel without perforation, Ascending thickening r/o mass, large sacral wound and b/l LL PNA.
EGD: 11/03/24 protano - Normal esophagus - Erythematous mucosa in the gastric body, fundus, and antrum. Biopsied. Suspect this was the cause of the hematemesis and anemia- Normal examined duodenum.
12/13/24 CT Abd/pelvis Wo Iv Cont
Diffuse bowel wall thickening and portal venous gas suggestive of possible ischemic bowel. No evidence for bowel perforation at this time.
Thickening of the ascending colon likely inflammatory or ischemic in etiology; however, recommend correlation with colonoscopy to rule out underlying mass.
Large sacral decubitus ulcer as described. Bilateral lower lobe pneumonia, progressed.
-rectal bleeding
-bleeding from sacral wound
-hypotension on admission
-CT with concern for bowel ischemia with portal gas cannot rule out underlying mass
-leukocytosis/SIRS on admission with concern for PNA
-hx c-diff
-hx hematemesis 11/2024 with erythematous mucosa gastric body
- anemia - acute on chronic blood loss
-hx diarrhea on prior admissions
-hx CVA with residual paraplegia/aphasia/dysphagia
-chronic peg /dysphagia with recent exchange
other med problems:
-h/o intraabdominal abscess with necrotizing infection requiring multiple surgeries with removal and replacement of PEG placement (May 2023)
- cholelithiasis
-NIDDM
-CHF
- ESRD on Dialysis
-hx HTN
PLAN:
Pt with multiple issues on admission with anemia and bleeding from rectal area along with large sacral wound, hypotension with recurrent sepsis from PNA or ischemic bowel vs other
no current bleeding from stomach with neg lavage on exam but still with rectal bleeding
? local source with red blood- hemorrhoids, ischemic process as suggested on CT vs other
s/p surgical eval for repeat CT
Eliquis hold
cont Protonix BID and cont Carafate BID
cont abx and PO vanco with hx prior C-diff
NPO
s/p transfusion overnight with improved hbg
Pt with hx chronic diarrhea prior to admission was on Loperimide BID, metamucil
pt remains too ill for colonoscopy as this time
reviewed with Dr. Olsen
goals of care discussed last admission and family opted for continued full code, Dr. Olsen reviewed again with family for goals of care for palliative care consult
I spoke with from GI standpoint with concern for hypotension with sepsis, ischemic bowel, rectal bleeding and severity of illness-- encouraged to consider hospice and comfort. She wishes to come to see patient and discuss with him.
-
-
Thank you for consultation and allowing me to participate in the patient's care. Please call the duplication specialist GI physician during the after hours with any questions or concerns.
[2024-12-14] MEDS: CARAFATE SUSPENSION 1 GM TUBE ×2 (07:29→21:27)
[2024-12-14] MEDS: ULTRAM 50 MG TUBE ×2 (07:29→21:28)
[2024-12-14] MEDS: ZYLOPRIM 100 MG TUBE (07:29)
[2024-12-14] MEDS: ZOLOFT 25 MG TUBE (07:29)
[2024-12-14] MEDS: TYLENOL 650 MG TUBE (07:29)
[2024-12-14] MEDS: PROTONIX IV 40 MG IV ×2 (07:30→21:27)
[2024-12-14] MEDS: NSS (PRESERVATIVE FREE) 10 ML IV (07:30)
[2024-12-14] MEDS: MYCOSTATIN ORAL SUSPENSION PO (07:31)
--- NOTE | 2024-12-14 08:00 | W.PN.HOSP.TC ---
Today's Communication/Plan
-
see plan
Assessment / Plan
Assessment / Plan
Gen: NAD, Awake and alert, NCTA
Eyes: EOMI, PERRLA, no scleral icterus.
Neck: supple.
CV: RRR, +S1/S2, no m/r/g.
Resp: CTAB, no rales, wheezes, or rhonchi.
Abd: +BS, soft, NT, ND
Skin: Stage 4 sacral decubitus ulcer
Rectal: Active bleeding from the rectum
Neuro: CN 2-12 intact, unable to participate in neurological exam
Psych: Calm
CT A/P: Diffuse bowel wall thickening and portal venous gas suggestive of possible ischemic bowel. No evidence for bowel perforation at this time. Thickening of the ascending colon likely inflammatory or ischemic in etiology; however, recommend
correlation with colonoscopy to rule out underlying mass. Large sacral decubitus ulcer as described. Bilateral lower lobe pneumonia, progressed.
Acute blood loss anemia due to acute rectal bleeding:
-exacerbated by Eliquis which is on hold
-blood return with rectal tube placement in ER
-s/p 1U pRBCs
-trend Hb
-cont PPI
Hypotension:
-with leukocytosis, concern for either sepsis due to PNA and or ischemic bowel vs hypotension due to acute blood loss anemia (likely combination of all of the above)
-30cc/kg NS bolus
-upgrade to IMU
-start IV Vanco/Zosyn (as well as proph enteral Vanco)
-c/s ID/surgery/GI (discussed with all of these services)
-STAT CT A/P with IV and PO (via PEG) contrast
-If BP does not improve with IVF boluses will start vasopressors
Other problems:
Recent severe erosive gastritis (no H. pylori on recent path)
PAF: Holding Eliquis
ESRD on HD: c/s renal for HD (M/W/F)
h/o chronic Diarrhea
h/o C Diff carrier status (Ag POS)
Dysphagia: on PEG feeds [employer] which are on hold
h/o CVA with residual aphasia and paraplegia
Hepatosplenomegaly
Pt is critically ill with multiple, severe, active comorbidities. I discussed this at length with the pt's and have recommended hospice. Palliative care c/s placed.
FULL/SCDs
Total critical care time spent = 43 min
Anticipated Discharge: > 48 hours
Subjective/Interval History
-
Date of Service: December 14, 2024
Objective Data
-
Labs:
Laboratory Results
12/13/24 12/14/24 12/14/24
20:02 00:13 06:27
WBC 22.8 H 19.0 H
Hgb 8.4 L 7.0 L 8.6 L D
Hct 27.9 L 22.4 L 26.8 L
Plt Count 357 319
PT 20.3 H
INR 1.72
APTT 49.0 H
Sodium 133 L 132 L
Potassium 3.5 3.6
Chloride 96 L 100
Carbon Dioxide 28 25
BUN 44 H 49 H
Creatinine 2.2 H 2.1 H
Glucose 135 H 102 H
Calcium 8.5 8.1 L
Total Bilirubin 0.8
AST 32
ALT 25
Alkaline Phosphatase 176 H
12/14/24 12/14/24
12:04 18:04
WBC
Hgb Pending Pending
Hct Pending Pending
Plt Count
PT
INR
APTT
Sodium
Potassium
Chloride
Carbon Dioxide
BUN
Creatinine
Glucose
Calcium
Total Bilirubin
AST
ALT
Alkaline Phosphatase
Vital Signs:
Vital Signs
Temp Pulse Resp BP Pulse Ox
98.2 F 89 11 99/56 98
12/14/24 04:11 12/14/24 06:45 12/14/24 06:45 12/14/24 06:03 12/14/24 06:45
I&O
12/13/24 12/14/24 12/15/24
06:59 06:59 06:59
Intake Total 250 / 250
Output Total 50 / 50
Balance 200 / 200
[2024-12-14] MEDS: NSS 1000 IV ×3 (08:10→15:21)
[2024-12-14] MEDS: OMNIPAQUE 50 ML PO (09:21)
--- NOTE | 2024-12-14 10:30 | PTCARENOTE ---
Received patient by stretcher from ED, patient visibly saturated in sweat. BP soft, 2nd bolus infusing. All other VSS. FMS and griffiths patent. Patient with wet nonproductive cough. All wounds cleaned and redressed. Patient nonverbal, sometimes nods
appropriately, able to communicate some needs. Will continue to closely monitor.
[2024-12-14] MEDS: ZOSYN 50 IV (10:47)
--- NOTE | 2024-12-14 11:08 | CON.ID ---
Consultation
-
Date/Time Consultation Requested: December 14, 2024 0814
Date/Time Consultation Performed: December 14, 2024 1100
Requesting Provider: Dr. Temo Olsen
Performing Provider: Dr. Chela Montague
Reason for Consultation: Concern for ischemic colitis
Chief Complaint / Past History
Chief Complaint
Bleeding from rectum.
History of Present Illness
Patient is nonverbal, most of the history is obtained through the chart. This is a 59-year-old male with past medical history significant for CVA with residual paraplegia bedbound, s/post trach(now removed) and PEG, history of intra-abdominal
abscess/necrotizing infection s/p exploratory laparotomy bowel resection, atrial fibrillation on anticoagulation, [id number] diabetes, hypertension, ESRD on hemodialysis via right IJ PermCath, multiple recent hospitalizations brought to
the emergency department from [facility] due to rectal bleeding.
Patient was recently hospitalized from November 02 to November 11 with upper GI bleed status post EGD and found to have erosive gastritis. During hospital stay, patient with diarrhea, loose stool; C. difficile antigen positive, toxin negative.
The chronic sacral decubitus wounds deteriorated in setting of stool contamination. Per colorectal, he was deemed too high risk for diverting colostomy. Patient was placed on 5-day course antibiotic for sacral wound infection and prophylactic oral
vancomycin completed 5 days after systemic antibiotic. He was readmitted 11/22 - 11/29 noted to have blood from PEG tube suction, patient arrived covered in brown diarrhea on his back, stool for C. difficile negative. Chest x-ray negative.
admission blood culture 1 out of 1 set positive for gram-negative hortensia [id number], unclear source, possibly contaminant as repeat bcx's neg prior to abx, but bacteremia treated with 7d course of meropenem, completed in hospital.
He returned to ED from [facility] 12/13 due to large bright red blood per rectum. IN ED Afebrile, WBC 22. Rectal tube placed with rohini blood return. BP decreasing 70's. CT a/p diffuse bowel wall thickening with new portal venous gas suggestive of possible
ischemic bowel. Bilateral lower lobe pneumonia, progressed. Stool for C. difficile negative. He was started on IV vancomycin, Zosyn and enteric vancomycin. Overnight continued to have blood from rectum as well as from sacral wound. Patient
reports abdominal discomfort. No significant cough. Positive weakness and malaise. No fever or chills.
Past History
Past Medical History: Other
Additional Past Medical History:
CVA and paraplegia
Dysphagia status post PEG
Atrial fibrillation
HTN
End-stage renal disease on hemodialysis Friday via right IJ PermCath
GIB/erosive gastritis
C. diff x 1 (08/2024)
Chronic sacral decubitus wounds
Urinary retention with griffiths
Left upper extremity AV fistula placement
history of intra-abdominal abscess/necrotizing infection s/p exploratory laparotomy
Past Surgical History: Other (PEG tube placement, exploratory laparotomy, AVF))
Allergy History:
No Known Allergies Allergy (Verified 12/13/24 21:15)
Medications Reviewed: Yes
Current Antibiotics:
IV vancomycin
Zosyn
Enteric vancomycin
Social History
Tobacco: Non-Smoker
Alcohol: None
Drug: None
Personal:
Living: Skilled Nursing (unable to obtain social hx as patient is non verbal.)
Family History
Family History: Not Pertinent and Unable to Obtain (Patient not verbal)
Review of Systems
Review of Systems
Unable to fully obtain due to patient is nonverbal
Vital Signs
Temp Pulse Resp BP Pulse Ox
99.8 F 90 24 98/55 97
12/14/24 07:15 12/14/24 09:30 12/14/24 09:30 12/14/24 09:30 12/14/24 09:30
Physical Exam
Physical Exam
Constitutional: Acutely Ill and Chronically Ill
Head: Other (No sinus tenderness.)
Eyes: No Conjunctival Hemorrhage and Sclera Anicteric
Cardiovascular: S1/S2 (Tachycarding)
Pulmonary: Rales (bases)
Gastrointestinal: Soft, Non Tender, Non Distended, Decreased Bowel Sounds and Other (FMS: dark brown stool)
Genito-Urinary: Griffiths and Clear Urine
Extremities: Edema and Venous Insufficiency
Neurological: Awake
Lines: HD Cath (RCW no erythema)
Lab / Diagnostic Study Results
12/14/24 06:27
Abs Immat Gran (auto) 0.2 10^3/uL (0-0.05) H 12/13/24 20:02
Absolute Neuts (auto) 20.9 10^3/uL (1.4-6.5) H 12/13/24 20:02
Absolute Lymphs (auto) 1.0 10^3/uL (1.2-3.4) L 12/13/24 20:02
Absolute Monos (auto) 0.6 10^3/uL (0.1-0.6) 12/13/24 20:02
Absolute Basos (auto) 0.1 10^3/uL (0-0.2) 12/13/24 20:02
Immature Gran % 0.8 % (0-0.5) H 12/13/24 20:02
Neutrophils % 91.9 % (42.2-75.2) H 12/13/24 20:02
Lymphocytes % 4.4 % (20.5-51.1) L 12/13/24 20:02
Monocytes % 2.6 % (1.7-9.3) 12/13/24 20:02
Eosinophils % 0.0 % (0-6) 12/13/24 20:02
Basophils % 0.3 % (0-2) 12/13/24 20:02
PT 20.3 Sec (11.4-14.6) H 12/13/24 20:02
INR 1.72 12/13/24 20:02
Lactic Acid 1.4 mmol/L (0.7-2.0) 12/14/24 00:13
Microbiology Results
Micro:
12/13/24 21:05 C. difficile GDH Antigen & Toxins - Final
Feces/Stool Negative for toxigenic C.difficile
12/13/24 21:05 Blood Culture - Pending
Blood/Venous
12/13/24 21:05 Blood Culture - Pending
Blood/Venous
12/13/24 21:05 Salmonella/Shigella Culture - Pending
Feces/Stool Campylobacter Culture - Pending
Shiga Toxin Test - Pending
12/13/24 CT a/p: Diffuse bowel wall thickening and portal venous gas suggestive of possible ischemic bowel. No evidence for bowel perforation at this time. Thickening of the ascending colon likely inflammatory or ischemic in etiology; however,
recommend correlation with colonoscopy to rule out underlying mass. Bilateral lower lobe pneumonia, progressed. Redemonstration of large midline/right para midline sacral decubitus ulcer at the level of and extending to the sacrococcygeal junction,
progressed from prior with probable chronic erosion of the coccyx. No overt CT evidence for active osteomyelitis of the distal sacrum.
Assessment / Plan
# Probable ischemic bowel on CAT scan
# Bright red blood per rectum
# Bleeding from stage IV sacral wound
# Hypotension from blood loss
# Leukocytosis
# Chronic stage IV sacral decubitus wound, too high risk for diverting colostomy
# hx C. diff x 1 (august 2024)
# ESRD on HD via tunneled catheter
# CVA, paraplegia, bed bound, PEG on tube feed
# History of intra-abdominal abscess/necrotizing infection s/p exploratory laparotomy
- Blood cx's pending.
- Replace Zosyn with meropenem 1g IV q24 (h/o MDRO)
- Can continue IV Vancomycin pending blood cx's.
- C. diff prophylaxis with enteric Vanco 125mg bid.
- Trend wbc, vitals. H/H.
- Overall prognosis is poor.
Continue GOC discussion.
Conditions present on admission:
CVA and paraplegia
Dysphagia status post PEG
Atrial fibrillation on Eliquis
HTN
End-stage renal disease on hemodialysis Friday via right IJ PermCath
GIB/erosive gastritis
C. diff x 1 (08/2024)
Chronic sacral decubitus wounds, too high risk for diverting colostomy
Urinary retention with griffiths
Left upper extremity AV fistula placement
History of intra-abdominal abscess/necrotizing infection s/p exploratory laparotomy
Care Review
Plan reviewed with: Physician (Dr. Olsen)
[2024-12-14 11:36] LABS: Hematocrit 27.4 % (39.0-52.0); Hemoglobin 8.7 g/dL (13.0-18.0)
--- NOTE | 2024-12-14 12:27 | W.CON.PAL ---
Consultation
-
Date/Time Consultation Requested: 12/14
Date/Time Consultation Performed: 12/14
Requesting Provider: Jeffrey Olsen
Performing Provider: Ani Dasilva
Reason for Consult: Goals of Care Discussion
Reason for Admission
Illness Course/HPI
59 year old M with PMH of CVA with residual paraplegia/bedbound 2022 with sacral decubitis, s/p trach(now removed) and PEG, intra-abdominal abscess/necrotizing infection s/p exploratory laparotomy/bowel resection, afib on AC, diabetes, hypertension,
ESRD on hemodialysis via right IJ PermCath. Of note, multiple recent hospitalizations. Admitted from LTC facility for rectal bleeding.
Patient was recently hospitalized from November 02 to November 11 with upper GI bleed status post EGD and found to have erosive gastritis. At that time had worsening of his chronic sacral wounds 2/2 stool contamination. Per colorectal, he was
deemed too high risk for diverting colostomy. He completed a 5-day course antibiotic for sacral wound infection. He was readmitted 11/22 - 11/29 noted to have blood from PEG tube.
Upon admission CT with concern for ischemic colitis, r/o mass. Also with progression of PNA, osteo in sacrum. Received 1 unit of PRBCs with good response. Ongoing intermittent hypotension. On ABX. GI and ID following. Patient recommended for hospice
by multiple teams due to poor prognosis.
No family at bedside, patient mostly non verbal.
Called and spoke with patients spouse Key. Introduced role of PCS, she is familiar and states he had palliative services after his stroke in 2022. She is thankful for the extra support. Is on her way to the hospital to see him, knows there are a
few concerns about him not doing well but would like to give a little time to see what happens. Explained that I could touch base tomorrow.
Discussed with Dr Olsen.
Objective Data
-
Objective Data:
Vital Signs
Temp Pulse Resp BP Pulse Ox
99.8 F 90 24 98/55 97
12/14/24 07:15 12/14/24 09:30 12/14/24 09:30 12/14/24 09:30 12/14/24 09:30
Laboratory Results
12/14/24 06:27
PT 20.3 Sec (11.4-14.6) H 12/13/24 20:02
INR 1.72 12/13/24 20:02
APTT 49.0 Sec (23.4-35.0) H 12/13/24 20:02
Total Protein 7.0 g/dl (6.3-8.2) 12/13/24 20:02
Albumin 2.9 g/dl (3.5-5.0) L 12/13/24 20:02
Palliative Performance Scale
Palliative Performance Scale:
PPS Level Ambulation Activity & Evidence of Disease Self Care Intake Conscious Level
100% Full Normal Activity & Work; Full Intake Full
No Evidence of Disease
90% Full Normal Activity & Work; Full Normal Full
Some Evidence of Disease
80% Full Normal Activity with Effort Full Normal or Full
Some Evidence of Disease Reduced
70% Reduced Unable Normal Job/Work Full Normal or Full
Significant Disease Reduced
60% Reduced Unable Hobby/Housework Occasional Normal or Full or Confusion
Significant Disease Assistance Reduced
50% Mainly Sit/Lie Unable to do Any Work Considerable Normal or Full or Confusion
Extensive Disease Assistance Req'd Reduced
40% Mainly in Bed Unable to do Most Activity Mainly Assistance Normal or Full or Drowsy;
Extensive Disease Reduced +/- Confusion
30% Totally Bed Unable to do Any Activity Total Care Normal or Full or Drowsy;
Bound Extensive Disease Reduced +/- Confusion
20% Totally Bed Bound Unable to do Any Activity Total Care Minimal to Full or Drowsy;
Extensive Disease Sips +/- Confusion
10% Totally Bed Bound Unable to do Any Activity Total Care Mouth Care Drowsy or Coma;
Extensive Disease Only +/- Confusion
0%
PPS Score Level:
Physical Exam
-
General: Appears Chronically Ill
HEENT: Normocephalic
Cardiac: Regular Rhythm
Peripheral Vascular: No Edema
Skin: Warm
Neuro: Awake
Assessment / Plan
-
Assessment/Plan:
59 year old M with multiple chronic medical conditions admitted with rectal bleeding c/f ischemic colitis
- spoke with who would like to give patient some time to see how he does as he was just admitted overnight.
- will touch base tomorrow
Care Reviewed
Data Reviewed
Chest X ray: Report Reviewed
Radiology procedure: Report Reviewed
Medical Tests: I reviewed
Reviewed with: Patient, Family and Physician
--- NOTE | 2024-12-14 12:41 | PHA.VAN.IN ---
Assessment
- Assessment
Renal Function: Patient has ESRD, on chronic Hemodialysis
Hemodialysis Schedule: MWF
Concomitant Antimicrobials: Meropenem 1 gram IV q24h, Vancomycin 125 mg PO q12h
Plan
- Plan
Initial / Loading Dose: Vancomycin 2 gram x 1 (12/13)
Monitoring: Vancomycin random level for 12/14
Pharmacokinetics Vancomycin I
- -
Patient Age: 59
Patient Sex: Male
Vancomycin Day #: 1
Indication: Gi / Intra-Abdominal
Requesting Provider: Dr. Olsen
Height / Weight:
Height 5 ft 9 in
Actual Weight 85.9 kg
Pertinent Past Medical History: ESRD - HD, paraplegia, BMI: 28
- Vital Signs / Lab Results
Temp Pulse Resp BP Pulse Ox
99.8 F 90 24 98/55 97
12/14/24 07:15 12/14/24 09:30 12/14/24 09:30 12/14/24 09:30 12/14/24 09:30
Lab Results - Hematology
12/13/24 12/14/24
20:02 06:27
WBC 22.8 H 19.0 H
Lab Results - Chemistry
12/13/24 12/14/24
20:02 06:27
BUN 44 H 49 H
Creatinine 2.2 H 2.1 H
Estimated Creat Clear 36 38
Albumin 2.9 L
12/13/24 12/14/24
20:01 00:13
Lactic Acid 1.9 1.4
Microbiology Results
12/13/24 21:05 C. difficile GDH Antigen & Toxins - Final
Feces/Stool Negative for toxigenic C.difficile
[2024-12-14] MEDS: FIRVANQ 125 MG TUBE ×2 (13:25→21:28)
--- NOTE | 2024-12-14 13:45 | CON.GS ---
Medical History
-
Chief Complaint: Rectal bleeding
History of Present Illness:
Patient is a 59 yo M with a PMH of morbid obesity, HTN, HLD, CHF, A-fib (on Eliquis, LD 12/13 AM), CVA (paraplegia/aphasia) s/p tracheostomy (removed) and PEG c/b leak and necrotizing soft tissue infection s/p midline incision and ultimately PEG
replacement in 05/2023, NIDDM, ESRD (on HD), chronic sacral decubitus ulcer, and h/o C. difficile. Encounter limited due to patient's aphasia. History obtained from chart review. He presents with rectal bleeding. He was recently admitted for a GI
bleed believed to be related to a gastric ulcer. No reports of worsening abdominal pain or distention. Rectal tube in place and draining blood-tinged stool. G-tube placed to gravity without return of bloody gastric contents. Afebrile.
He presents from his detention at [facility]. Much of his prior medical care has been at [facility].
Past Medical History
Past Medical History: Arrhythmias (Afib), CHF, CVA, GERD, HTN, Hypercholesterolemia, NIDDM, Renal Failure and Other (Sacral ulcer, C. diff)
Past Surgical History: Other (Tracheostomy, PEG c/b leak and soft tissue infection s/p debridement and replacement of PEG)
Social History
Tobacco: Non-Smoker
Alcohol: None
Drug: None
Family History
Family History: Reviewed & Not Pertinent
Allergies / Home Medications
Allergy/AdvReac Type Severity Reaction Status Date / Time
No Known Allergies Allergy Verified 12/13/24 21:15
�Medication �Instructions �Recorded �Confirmed �Type
acetaminophen 325 mg tablet 650 mg feeding tube DAILY mild Pain 11/22/24 12/13/24 History
(Tylenol)
allopurinol 100 mg tablet 100 mg feeding tube DAILY Gout 11/22/24 12/13/24 History
bisacodyl 10 mg rectal suppository 10 mg GA DAILYPRN PRN if no bm 11/22/24 12/13/24 History
(Dulcolax (bisacodyl)) aftr sorbitol
loperamide 2 mg capsule 2 mg feeding tube Q8HPRN PRN 11/22/24 12/13/24 History
DIARRHEA
loperamide 2 mg capsule 4 mg feeding tube BID diarrhea 11/22/24 12/13/24 History
lorazepam 0.5 mg tablet 0.5 mg feeding tube BIDPRN PRN 11/22/24 12/13/24 History
AXNIETY
nystatin 100,000 unit/mL oral 10 ml buccal TID Infection 11/22/24 12/13/24 History
suspension
sertraline 25 mg tablet 25 mg feeding tube DAILY Mental 11/22/24 12/13/24 History
Health/Anxiety
sorbitol 70 % solution 30 ml PO DAILYPRN PRN 11/22/24 12/13/24 History
CONSTIPATION/ VIA PEG TUBE
tramadol 50 mg tablet 50 mg feeding tube BID moderate 11/22/24 12/13/24 History
Pain
Metamucil Free & Natural 43% 1 packet feeding tube DAILY 12/13/24 12/13/24 History
Constipation
acetaminophen 325 mg tablet 650 mg feeding tube Q6HPRN PRN 12/13/24 12/13/24 History
(Tylenol) mild pain
apixaban 5 mg tablet (Eliquis) 5 mg feeding tube BID afib 12/13/24 12/13/24 History
pantoprazole 40 mg granules 40 mg feeding tube BID gerd 12/13/24 12/13/24 History
delayed-release for susp in packet
sucralfate 100 mg/mL oral 1 g feeding tube BID gerd 12/13/24 12/13/24 History
suspension
Review of Systems
-
A 10 point review of systems was completed, and was negative except as per HPI.
Physical Exam
Vital Signs
Temp Pulse Resp BP Pulse Ox
97.6 F 87 20 109/48 97
12/14/24 11:59 12/14/24 13:06 12/14/24 13:06 12/14/24 13:06 12/14/24 13:00
12/13/24 12/14/24 12/15/24
06:59 06:59 06:59
Actual Weight 85.9 kg
Body Mass Index (BMI) 28.0
Lab Results
12/14/24 06:27
WBC 19.0 10^3/uL (4.8-10.8) H 12/14/24 06:27
Hgb 8.7 g/dL (13.0-18.0) L 12/14/24 11:24
Hct 27.4 % (39.0-52.0) L 12/14/24 11:24
Plt Count 319 10^3/uL (130-400) 12/14/24 06:27
Abs Immat Gran (auto) 0.2 10^3/uL (0-0.05) H 12/13/24 20:02
Neutrophils % 91.9 % (42.2-75.2) H 12/13/24 20:02
Physical Exam
General: No Apparent Distress
HEENT: Normocephalic and Anicteric
Respiratory: Non Labored Respirations
Cardiac: Irregular Rhythm
GI: Soft, Non Tender, Non Distended, Obese and Other (Midline incision healed/ganulated, PEG intact to gravity draining gastric contents)
Rectal: Hem Positive and Other (Rectal tube in place)
Data Reviewed
-
CT Scan: Image Personally Visualized and interpreted and Report Reviewed by me
Labs: Labs Reviewed by me
Old Records: Reviewed
Assessment / Plan
-
Patient is a 59 yo M p/w bright red blood per rectum
Source and cause for GI bleeding remains broad, however, given his newly develop PV gas would be concerned for bowel ischemia. CT scan imaging limited by lack of oral and IV contrast. Portal venous gas noted. Small bowel and colonic thickening
and inflammation noted. No free air or pneumatosis. General surgery consulted due to concern for possible small bowel ischemia. Possibly related to a more colonic source with BRB. Clinically difficult to assess given patient's aphasic state,
however, no wincing or abdominal pain with palpation. Increased risk for operative complications given his obesity, general medical condition, and active anticoagulation. Recommend admission to the IMU/ICU, NPO, PEG to gravity, IVF, hold Eliquis,
antibiotics with Vancomycin and Zosyn. Recommend repeat CT scan with oral and IV contrast. Further recommendations pending this imaging. Hospitalist updated, goals of care with patient's DPOA ongoing.
-- Repeat CT A/P with PO and IV contrast
-- NPO, IVF
-- Abx: Vancomycin and Zosyn
-- Hold Eliquis
-- GOC on going
[2024-12-14] MEDS: MYCOSTATIN ORAL SUSPENSION 10 ML PO ×2 (15:22→21:28)
[2024-12-14] MEDS: STERILE WATER FOR INJECTION 20 ML IV (15:22)
[2024-12-14] MEDS: MERREM 1000 MG IV (15:22)
--- NOTE | 2024-12-14 15:38 | CM ---
Initial Assessment Completed By EVGENY Sullivan. Patient is from [facility], total care, has a peg tube, on HD for dialysis, past CVA, non-verbal, and bedbound. Last admission referrals were made to other facilities in [facility] per request of
sig-other and there were no accepting facilities. Sig-other frustrated with [facility], but the facility said they have been working with the sig-other for a move, it is that sig-other may not understand that most facilities have declined him.
Teresa from [facility] has been encouraging and stated before patient left last admission that [facility] [employer] [facility] would be meeting with the sig-other to assist with a transfer. Teresa also did not ask for authorization when discharged. PLAN: Return to [facility].
--- NOTE | 2024-12-14 16:05 | W.CON.NEPH ---
Consultation
-
Date/Time Consultation Requested: December 14, 2024 8 AM
Date/Time Consultation Performed: December 14, 2024 2 PM
Requesting Provider: Temo Olsen
Performing Provider: Dr. Reyna
Reason for Consultation: ESRD
Medical History
-
Chief Complaint: ESRD
History of Present Illness:
59-year-old male with past medical history of stroke with subsequent paraplegia dysphagia with PEG tube history of tracheostomy status post removal with ESRD on Friday dialysis schedule at [facility] presented with rectal bleeding.
He has a history of GI bleeding with erosive gastritis and was admitted from through 01/25 for GI bleeding requiring 2 units of blood. The patient also had significant urinary retention during that hospitalization requiring [place] catheter
with difficulty placing due to phimosis. He has been C. difficile antigen positive toxin negative and treated prophylactically with oral vancomycin.
nephrology was consulted for end-stage renal disease management. History is obtained in reviewing previous admissions and his at the bedside
Past Medical History
Atrial fibrillation, CVA -Residual aphasia and paraplegia, residual dysphagia status post PEG, HTN and End-stage renal disease on hemodialysis Friday via right IJ PermCath, he is status post a left upper extremity AV fistula 1 month
ago
Past Surgical History: Other (PEG tube placement, exploratory laparotomy, AVF)
Social History
Tobacco: Non-Smoker
Alcohol: None
Drug: None
Family History
Family History: Not Pertinent and Unable to Obtain (non verbal)
Allergies / Home Medications
Allergy/AdvReac Type Severity Reaction Status Date / Time
No Known Allergies Allergy Verified 12/13/24 21:15
�Medication �Instructions �Recorded �Confirmed �Type
acetaminophen 325 mg tablet 650 mg feeding tube DAILY mild Pain 11/22/24 12/13/24 History
(Tylenol)
allopurinol 100 mg tablet 100 mg feeding tube DAILY Gout 11/22/24 12/13/24 History
bisacodyl 10 mg rectal suppository 10 mg OR DAILYPRN PRN if no bm 11/22/24 12/13/24 History
(Dulcolax (bisacodyl)) aftr sorbitol
loperamide 2 mg capsule 2 mg feeding tube Q8HPRN PRN 11/22/24 12/13/24 History
DIARRHEA
loperamide 2 mg capsule 4 mg feeding tube BID diarrhea 11/22/24 12/13/24 History
lorazepam 0.5 mg tablet 0.5 mg feeding tube BIDPRN PRN 11/22/24 12/13/24 History
AXNIETY
nystatin 100,000 unit/mL oral 10 ml buccal TID Infection 11/22/24 12/13/24 History
suspension
sertraline 25 mg tablet 25 mg feeding tube DAILY Mental 11/22/24 12/13/24 History
Health/Anxiety
sorbitol 70 % solution 30 ml PO DAILYPRN PRN 11/22/24 12/13/24 History
CONSTIPATION/ VIA PEG TUBE
tramadol 50 mg tablet 50 mg feeding tube BID moderate 11/22/24 12/13/24 History
Pain
Metamucil Free & Natural 43% 1 packet feeding tube DAILY 12/13/24 12/13/24 History
Constipation
acetaminophen 325 mg tablet 650 mg feeding tube Q6HPRN PRN 12/13/24 12/13/24 History
(Tylenol) mild pain
apixaban 5 mg tablet (Eliquis) 5 mg feeding tube BID afib 12/13/24 12/13/24 History
pantoprazole 40 mg granules 40 mg feeding tube BID gerd 12/13/24 12/13/24 History
delayed-release for susp in packet
sucralfate 100 mg/mL oral 1 g feeding tube BID gerd 12/13/24 12/13/24 History
suspension
Review of Systems
-
Unable to obtain full review of systems at this time due to: Patient Non Verbal
Physical Exam
Vital Signs
Vital Signs
Temp Pulse Resp BP Pulse Ox
97.6 F 86 11 96/54 96
12/14/24 11:59 12/14/24 15:00 12/14/24 15:00 12/14/24 15:00 12/14/24 14:42
Lab Results
WBC 19.0 10^3/uL (4.8-10.8) H 12/14/24 06:27
RBC 3.10 10^6/uL (4.70-6.10) L 12/14/24 06:27
Plt Count 319 10^3/uL (130-400) 12/14/24 06:27
Sodium 132 mmol/L (135-145) L 12/14/24 06:27
Potassium 3.6 mmol/L (3.5-5.1) 12/14/24 06:27
Chloride 100 mmol/L (98-107) 12/14/24 06:27
Carbon Dioxide 25 mmol/L (22-30) 12/14/24 06:27
BUN 49 mg/dl (9-20) H 12/14/24 06:27
Creatinine 2.1 mg/dL (0.7-1.3) H 12/14/24 06:27
eGFR 35.59 12/14/24 06:27
Glucose 102 mg/dl (70-99) H 12/14/24 06:27
Calcium 8.1 mg/dl (8.4-10.2) L 12/14/24 06:27
Albumin 2.9 g/dl (3.5-5.0) L 12/13/24 20:02
Physical Exam
General no acute distress
HEENT no cephalic atraumatic extraocular muscle intact no scleral icterus no JVD neck supple
lungs clear to auscultation bilateral
heart regular S1-S2 positive
abdomen soft nontender positive bowel sounds
extremities no edema pulses present bilateral
Neurologically nonverbal hemiparesis
Skin no lesions no abrasions no petechiae
Psych normal affect no bizarre behavior
Data Reviewed
-
CT Scan: Image Personally Visualized and interpreted
Assessment/Plan
-
IMP:
Acute blood loss anemia 2/2 GIB on anemia of chronic disease 2/2 ESRD
Diarrhea
Hx of recent C.diff
Leukocytosis
ESRD on HD-MWF [facility]
left UE AVF
right chest wall catheter
Mild hypokalemia
Dysphagia on PEG
Hx of CVA with residual aphasia and paraplegia
Urine retention
NIDDM
Plan:
No acute need for dialysis today
Order dialysis for tomorrow though pending family decision on palliative care as patient has multiple comorbid conditions untreatable and possible bowel ischemia versus mass
Electrolytes are stable.
Antibiotics
I will hold on ordering dialysis for tomorrow until further decisions. Patient hypotensive on admission will be difficult to dialyze conventionally at this time
Supportive care at this time
[2024-12-14 18:57] LABS: Hematocrit 25.4 % (39.0-52.0); Hemoglobin 8.1 g/dL (13.0-18.0)
[2024-12-14] MEDS: DESENEX/MITRAZOL/ZEASORB 1 APPLIC TOPICAL (21:28)
[2024-12-15] VITALS (31 sets, daily range): BP systolic 82–123; BP diastolic 47–66; BMI 28.0
[2024-12-15 04:56] LABS: Hematocrit 24.5 % (39.0-52.0); Hemoglobin 7.7 g/dL (13.0-18.0); Mean Corp Hgb Conc. 31.4 g/dL (33.0-37.0); Mean Corpuscular Volume 85.1 fL (80.0-94.0); Nucleated Red Blood Cells % 0 % (-); Platelet Count 303 10^3/uL (130-400); Red Cell Dist. Width 16.0 % (11.5-14.5)
[2024-12-15 05:20] LABS: ALT (SGPT) 15 U/L (0-50); AST (SGOT) 19 U/L (17-59); Albumin 2.2 g/dl (3.5-5.0); Alkaline Phosphatase 98 U/L (38-126); Blood Urea Nitrogen 48 mg/dl (9-20); Calcium 8.1 mg/dl (8.4-10.2); Carbon Dioxide 23 mmol/L (22-30); Chloride 103 mmol/L (98-107); Estimated Creatinine Clearance 31 ml/min; Glucose 70 mg/dl (70-99); Potassium 3.2 mmol/L (3.5-5.1); Sodium 135 mmol/L (135-145); Total Protein 5.4 g/dl (6.3-8.2); eGFR 27.55
--- NOTE | 2024-12-15 08:50 | PHA.VAN.FU ---
Vancomycin Assessment / Plan
- Assessment
Hemodialysis Schedule: MWF
WBC's are: Stable
In the past 24 hrs, patient has been: Afebrile
Concomitant Antimicrobials: meropenem
- Assessment - Therapeutic Drug Monitoring
Random Level: 16.3 Tues 12/14 - appropriate for re-dosing with HD today
- Dosing Plan
Dosing by Level: Re-dose today (Vanc 750mg)
- Monitoring Plan
No level(s) ordered at this time: consider level prior to next HD session
- Follow Up
Pharmacy will continue to follow.
Vancomycin Follow UP
- -
Patient Age: 59
Patient Sex: Male
Vancomycin Day #: 2
Indication: Gi / Intra-Abdominal
Requesting Provider: Dr. Olsen / Eddi
Pertinent Antimicrobial Allergies:
NKDA
Height / Weight:
Height 5 ft 9 in
Actual Weight 85.9 kg
Pertinent Past Medical History: ESRD - HD, paraplegia, BMI: 28
- Vital Signs / Lab Results
Temp Pulse Resp BP Pulse Ox
98.1 F 82 13 99/56 98
12/15/24 03:42 12/15/24 06:00 12/15/24 06:00 12/15/24 06:00 12/15/24 06:00
Lab Results - Hematology
12/13/24 12/14/24 12/15/24
20:02 06:27 04:30
WBC 22.8 H 19.0 H 18.2 H
Lab Results - Chemistry
12/13/24 12/14/24 12/15/24
20:02 06:27 04:30
BUN 44 H 49 H 48 H
Creatinine 2.2 H 2.1 H 2.6 H
Estimated Creat Clear 36 38 31
Albumin 2.9 L 2.2 L
12/13/24 12/14/24
20:01 00:13
Lactic Acid 1.9 1.4
Microbiology Results
12/13/24 21:05 Blood Culture - Preliminary
Blood/Venous Positive culture in progress
Gram Stain - Preliminary
12/13/24 21:05 Blood Culture - Preliminary
Blood/Venous No Growth in 24 hours- Final report to follow
12/13/24 21:05 C. difficile GDH Antigen & Toxins - Final
Feces/Stool Negative for toxigenic C.difficile
Therapeutic Drug Monitoring
Random Vancomycin 16.3 ug/ml 12/14/24 11:24
[2024-12-15] MEDS: NSS 1000 IV ×2 (08:55→20:44)
[2024-12-15] MEDS: NSS (PRESERVATIVE FREE) 10 ML IV (08:57)
[2024-12-15] MEDS: PROTONIX IV 40 MG IV ×2 (08:57→20:45)
[2024-12-15] MEDS: DESENEX/MITRAZOL/ZEASORB 1 APPLIC TOPICAL ×2 (08:58→21:36)
[2024-12-15] MEDS: ZYLOPRIM 100 MG TUBE (08:58)
[2024-12-15] MEDS: ULTRAM 50 MG TUBE ×2 (08:58→20:44)
[2024-12-15] MEDS: TYLENOL 650 MG TUBE (08:58)
[2024-12-15] MEDS: MYCOSTATIN ORAL SUSPENSION PO (08:58)
[2024-12-15] MEDS: ZOLOFT 25 MG TUBE (08:58)
[2024-12-15] MEDS: CARAFATE SUSPENSION 1 GM TUBE ×2 (08:59→20:44)
[2024-12-15] MEDS: FIRVANQ 125 MG TUBE ×2 (09:09→20:44)
--- NOTE | 2024-12-15 09:09 | WOUNDNOTE ---
[facility] RN note: Patient admitted with acute GI bleed. Patient admitted from [facility].
See H&P for complete history.
PMH: ESRD on HD, CVA with paraplegia, PEG, Trach, s/p trach removal, exploratory lap, NIDDM, L ischial and stage 4 sacral pressure injury.
Wound Location and type/assessment: Patient admitted with: Sacral stage 4 sacral pressure injury to bone, pink with yellow/brown necrotic tissue, R ischial unstageable probable stage 4 pressure injury with moist brown eschar. Scattered dermal
ulcers buttocks/teddy sacral area r/t moisture.
Appetite: NPO. Tube feeds on hold.
Pressure redistribution devices in place: Centrella Max air bed. Foam turning wedges. Air chair cushion.
Plan: Despite FMS in place, patient soiled with copious liquid brown stool. Patient washed, patient turned and bed linens changed with help from [facility] assist ADRIANA White. Sacral and L ischial wound care done. Skin prep to heels. Patient turned to R
semi side lying position with help from [facility] RN resident assistant Cindy and ADRIANA Alicia.
Will update and confirm orders with Dr. Olsen and discussed with ADRIANA Alicia. Patient high risk for worsening and additional pressure injuries and MASD r/t ongoing diarrhea, overall medical condition.
Care plan to be updated and will follow as needed.
Note to case management of equipment requested for discharge: Air mattress if not already in place.
Recommend follow up with wound pediatric acute care unit nurse at upon discharge.
--- NOTE | 2024-12-15 09:09 | WOUNDNOTE ---
SACRAL/COCCYX/BILATERAL BUTTOCKS
--- NOTE | 2024-12-15 09:12 | WOUNDNOTE ---
RIGHT ANTERIOR LOWER LEG
--- NOTE | 2024-12-15 09:13 | WOUNDNOTE ---
RIGHT MEDIAL HEEL
--- NOTE | 2024-12-15 10:40 | W.PN.ID1 ---
Date of Service
Date of Service: December 15, 2024
Today's Communication
Continue abx's
Assessment / Plan
# Probable ischemic bowel on CAT scan
# Enterococcus faecalis bacteremia 1 of 2 sets, suspect from gut translocation
# Bright red blood per rectum
# Bleeding from stage IV sacral wound
# Hypotension from blood loss
# Leukocytosis
# Chronic stage IV sacral decubitus wound, too high risk for diverting colostomy
# hx C. diff x 1 (august 2024)
# ESRD on HD via tunneled catheter
# CVA, paraplegia, bed bound, PEG on tube feed
# History of intra-abdominal abscess/necrotizing infection s/p exploratory laparotomy
- Repeat blood x2
- stool C. diff neg
- Continue IV vancomycin (d2) and meropenem (d2) (h/o MDRO)
- Continue C. diff prophylaxis with enteric Vanco 125mg bid.
- Trend wbc, vitals. H/H.
- Overall prognosis is poor.
Continue GOC discussion.
Conditions present on admission:
CVA and paraplegia
Dysphagia status post PEG
Atrial fibrillation on Eliquis
HTN
End-stage renal disease on hemodialysis Friday via right IJ PermCath
GIB/erosive gastritis
C. diff x 1 (08/2024)
Chronic sacral decubitus wounds, too high risk for diverting colostomy
Urinary retention with griffiths
Left upper extremity AV fistula placement
History of intra-abdominal abscess/necrotizing infection s/p exploratory laparotomy
Chief Complaint
-: Leukocytosis and Other
Vital Signs / Physical Exam
Vital Signs
Vital Signs
Temp Pulse Resp BP Pulse Ox
97.1 F 82 13 99/56 96
12/15/24 07:04 12/15/24 06:00 12/15/24 06:00 12/15/24 06:00 12/15/24 08:45
Physical Exam
Constitutional: Chronically Ill
Cardiovascular: Regular Rate and S1/S2
Gastrointestinal: Soft, Tender (grimaces with palpation left side of abdomen), Non Distended, Normal Bowel Sounds and Other (FMS dark liquid stool)
Genito-Urinary: Griffiths
Extremities: Negative Edema
Lines: HD Cath (right chest wall, no erythema)
Objective Data
Lab Data
Lab Results
12/15/24 04:30
12/15/24 04:30
PT 20.3 Sec (11.4-14.6) H 12/13/24 20:02
INR 1.72 12/13/24 20:02
APTT 49.0 Sec (23.4-35.0) H 12/13/24 20:02
Estimated Creat Clear 31 ml/min 12/15/24 04:30
Lactic Acid 1.4 mmol/L (0.7-2.0) 12/14/24 00:13
Total Bilirubin 0.9 mg/dl (0.2-1.3) 12/15/24 04:30
AST 19 U/L (17-59) 12/15/24 04:30
ALT 15 U/L (0-50) 12/15/24 04:30
Alkaline Phosphatase 98 U/L (38-126) 12/15/24 04:30
Most recent labs reviewed.
Micro Results:
12/13/24 21:05 Blood Culture - Preliminary
Blood/Venous Enterococcus faecalis
Gram Stain - Preliminary
12/13/24 21:05 Salmonella/Shigella Culture - Preliminary
Feces/Stool Culture in Progress
Campylobacter Culture - Preliminary
Culture in Progress
Shiga Toxin Test - Pending
12/13/24 21:05 Blood Culture - Preliminary
Blood/Venous No Growth in 24 hours- Final report to follow
12/14/24 15:01 MRSA Screen - Pending
Nose
12/13/24 21:05 C. difficile GDH Antigen & Toxins - Final
Feces/Stool Negative for toxigenic C.difficile
12/13/24 CT a/p: Diffuse bowel wall thickening and portal venous gas suggestive of possible ischemic bowel. No evidence for bowel perforation at this time. Thickening of the ascending colon likely inflammatory or ischemic in etiology; however,
recommend correlation with colonoscopy to rule out underlying mass. Bilateral lower lobe pneumonia, progressed. Redemonstration of large midline/right para midline sacral decubitus ulcer at the level of and extending to the sacrococcygeal junction,
progressed from prior with probable chronic erosion of the coccyx. No overt CT evidence for active osteomyelitis of the distal sacrum.
--- NOTE | 2024-12-15 12:16 | W.PN.PAL2 ---
Today's Communication
-
awaiting testing results
coming to the hospital later today
will meetwith her tomorrow
Assessment / Plan
-
Assessment/Plan:
spoke with via phone. she will be in the hospital later today and is awaiting results from testing from team. WIll plan to meet with her tomorrow to discuss goals further
Objective Data
-
Objective Data:
Vital Signs
Temp Pulse Resp BP Pulse Ox
97.1 F 73 17 118/64 97
12/15/24 07:04 12/15/24 11:00 12/15/24 11:00 12/15/24 10:35 12/15/24 11:00
Laboratory Results
12/15/24 04:30
12/15/24 04:30
PT 20.3 Sec (11.4-14.6) H 12/13/24 20:02
INR 1.72 12/13/24 20:02
APTT 49.0 Sec (23.4-35.0) H 12/13/24 20:02
Total Protein 5.4 g/dl (6.3-8.2) L D 12/15/24 04:30
Albumin 2.2 g/dl (3.5-5.0) L 12/15/24 04:30
Palliative Performance Scale
Palliative Performance Scale:
PPS Level Ambulation Activity & Evidence of Disease Self Care Intake Conscious Level
100% Full Normal Activity & Work; Full Intake Full
No Evidence of Disease
90% Full Normal Activity & Work; Full Normal Full
Some Evidence of Disease
80% Full Normal Activity with Effort Full Normal or Full
Some Evidence of Disease Reduced
70% Reduced Unable Normal Job/Work Full Normal or Full
Significant Disease Reduced
60% Reduced Unable Hobby/Housework Occasional Normal or Full or Confusion
Significant Disease Assistance Reduced
50% Mainly Sit/Lie Unable to do Any Work Considerable Normal or Full or Confusion
Extensive Disease Assistance Req'd Reduced
40% Mainly in Bed Unable to do Most Activity Mainly Assistance Normal or Full or Drowsy;
Extensive Disease Reduced +/- Confusion
30% Totally Bed Unable to do Any Activity Total Care Normal or Full or Drowsy;
Bound Extensive Disease Reduced +/- Confusion
20% Totally Bed Bound Unable to do Any Activity Total Care Minimal to Full or Drowsy;
Extensive Disease Sips +/- Confusion
10% Totally Bed Bound Unable to do Any Activity Total Care Mouth Care Drowsy or Coma;
Extensive Disease Only +/- Confusion
0%
PPS Score Level:
Physical Exam
-
General: No Apparent Distress
HEENT: Normocephalic
Cardiac: Regular Rhythm
Peripheral Vascular: Edema, Left Upper Extremity, Edema, Right Lower Extremity and Edema, Left Lower Extremity
GI: Soft, Nontender and Peg Tube
Care Reviewed
Data Reviewed
Chest X ray: Image Reviewed
Radiology procedure: Report Reviewed
Reviewed with: Patient, Family and Physician
--- NOTE | 2024-12-15 12:45 | W.PN.HOSP.TC ---
Addendum entered and electronically signed by Temo Olsen MD 12/15/24 18:10:
Functional Quadriplegia
R ischial unstageable probable stage 4 pressure injury with moist brown eschar
Original Note:
Today's Communication/Plan
-
see plan
Assessment / Plan
Assessment / Plan
Gen: NAD, Awake and alert, NCTA
Eyes: EOMI, PERRLA, no scleral icterus.
Neck: supple.
CV: RRR, +S1/S2, no m/r/g.
Resp: CTAB, no rales, wheezes, or rhonchi.
Abd: +BS, soft, NT, ND
Skin: Stage 4 sacral decubitus ulcer
Rectal: Active bleeding from the rectum
Neuro: CN 2-12 intact, unable to participate in neurological exam
Psych: Calm
12/13/24 21:05 Blood/Venous Blood Culture - Preliminary
Enterococcus faecalis
12/13/24 21:05 Blood/Venous Gram Stain - Preliminary
12/13/24 21:05 Feces/Stool Salmonella/Shigella Culture - Preliminary
Culture in Progress
12/13/24 21:05 Feces/Stool Campylobacter Culture - Preliminary
Culture in Progress
12/13/24 21:05 Blood/Venous Blood Culture - Preliminary
No Growth in 24 hours- Final report to follow
12/13/24 21:05 Feces/Stool C. difficile GDH Antigen & Toxins - Final
Negative for toxigenic C.difficile
CT A/P w/IV: Diffuse bowel wall thickening and portal venous gas suggestive of possible ischemic bowel. No evidence for bowel perforation at this time. Thickening of the ascending colon likely inflammatory or ischemic in etiology; however, recommend
correlation with colonoscopy to rule out underlying mass. Large sacral decubitus ulcer as described. Bilateral lower lobe pneumonia, progressed.
CT A/P with PO/IV: Redemonstration of extensive small bowel wall thickening and wall thickening of the ascending colon. There is also mild circumferential wall thickening of proximal to mid transverse colon. This is worrisome for ischemic bowel, as
noted previously. Improvement in portal venous gas. No evidence for pneumoperitoneum. Layering stones versus sludge in the gallbladder lumen. Small amount of perihepatic fluid. There is also moderate fluid in the lesser sac. Redemonstration of large
sacral decubitus ulcer. There is absence of the distal aspect of the sacrum and coccyx; this is without change. Anasarca. Kidneys do not excrete contrast material. This is consistent with known renal failure. Hepatomegaly. No focal hepatic lesion.
What likely represents pneumonia in the lower lobes noted. This is stable on the left, and worse on the right.
Acute blood loss anemia due to acute rectal bleeding:
-exacerbated by Eliquis which remains on hold
-blood return with rectal tube placement in ER
-s/p 1U pRBCs
-trend Hb
-cont PPI
-GI following
Sepsis/bacteremia, POA:
-likely due to ischemic bowel (imaging above)
-s/p 30cc/kg NS bolus, BPs improved
-BCx with enterococcus
-cont Vanco (IV and PO as C diff Ag POS in the past) and Meropenem as per ID
-Surgery and GI following
Other problems:
Stage 4 sacral pressure ulcer: wound care following
Recent severe erosive gastritis (no H. pylori on recent path)
PAF: Holding Eliquis
ESRD on HD: renal following for HD (M/W/F)
h/o chronic Diarrhea
h/o C Diff carrier status (Ag POS)
Dysphagia: on PEG feeds [employer] which are on hold
h/o CVA with residual aphasia and paraplegia
Hepatosplenomegaly
Pt is critically ill with multiple, severe, active comorbidities. I discussed this at length with the pt's over the phone 12/14 and recommended hospice. Palliative care following.
FULL/SCDs
Anticipated Discharge: > 48 hours
Subjective/Interval History
-
Date of Service: December 15, 2024
Patient awake and alert but nonverbal.
Objective Data
-
Labs:
Laboratory Results
12/15/24
04:30
WBC 18.2 H
Hgb 7.7 L
Hct 24.5 L
Plt Count 303
Sodium 135
Potassium 3.2 L
Chloride 103
Carbon Dioxide 23
BUN 48 H
Creatinine 2.6 H
Glucose 70
Calcium 8.1 L
Total Bilirubin 0.9
AST 19
ALT 15
Alkaline Phosphatase 98
Vital Signs:
Vital Signs
Temp Pulse Resp BP Pulse Ox
97.1 F 73 17 118/64 97
12/15/24 07:04 12/15/24 11:00 12/15/24 11:00 12/15/24 10:35 12/15/24 11:00
I&O
12/14/24 12/15/24 12/16/24
06:59 06:59 06:59
Intake Total 250 / 250
Output Total 50 / 50 610 / 610
Balance 200 / 200 -610 / -610
--- NOTE | 2024-12-15 14:33 | W.PN.GS2 ---
Today's Communication / Plan
-
Cont NPO/IVF
Cont IV abx
Hold eliquis
Assessment / Plan
-
Patient is a 59 yo M p/w bright red blood per rectum in setting of Eliquis use
PV gas noted on initial CT, improved on repeat CT, hematochezia improved
Hypotensive intermittently by cuff, unclear how reliable this is, normotensive since 4am
No tachycardia
Hypothermia is noted (though axillary less accurate)
WBC slightly improved
Source and cause for GI bleeding remains broad, however, given his newly develop PV gas would be concerned for bowel ischemia. CT scan imaging limited by lack of oral and IV contrast. Portal venous gas noted. Small bowel and colonic thickening
and inflammation noted. No free air or pneumatosis. General surgery consulted due to concern for possible small bowel ischemia. Possibly related to a more colonic source with BRB. Possibly related to low flow state during dialysis. Limited exam
given patient's aphasic state, however, no wincing or guarding with palpation, no rigidity. Increased risk for operative complications given his obesity, general medical condition, and active anticoagulation. Hospitalist updated, goals of care
with patient's DPOA ongoing.
-- NPO, IVF
-- Abx: Vancomycin and Zosyn
-- Hold Eliquis
-- Serial exams
-- GOC on going
Discussed GOC with . Rec DNR/DNI status. Discussed hospice briefly as well. His imaging shows improvement and he remains stable overall. His exam is limited but appears benign. Advised he is high risk for surgery. Discussed concern for extensive
bowel involvement, which if it does not improve, may make surgical management futile. She verbalized understanding.
Will follow.
Subjective Data
-
Date of Service: December 15, 2024
Nonverbal, eyes open, mouth open
Objective Data
-
Intake and Output
12/14/24 12/15/24 12/16/24
06:59 06:59 06:59
Intake Total 250 / 250
Output Total 50 / 50 610 / 610
Balance 200 / 200 -610 / -610
Intake:
Blood Product Amount Infused ( 250 / 250
mL)
Packed Rbc Leukoreduced Unit 250 / 250
[id number]
Output:
Liquid stool amount 600 / 600
Rectum 600 / 600
Urine, Griffiths
Urine, Voided 50 / 50
Vital Signs
Temp Pulse Resp BP Pulse Ox
96.8 F L 73 17 118/64 97
12/15/24 11:26 12/15/24 11:00 12/15/24 11:00 12/15/24 10:35 12/15/24 11:00
Lab Results
12/15/24 04:30
12/15/24 04:30
Calcium 8.1 mg/dl (8.4-10.2) L 12/15/24 04:30
Total Bilirubin 0.9 mg/dl (0.2-1.3) 12/15/24 04:30
AST 19 U/L (17-59) 12/15/24 04:30
ALT 15 U/L (0-50) 12/15/24 04:30
Alkaline Phosphatase 98 U/L (38-126) 12/15/24 04:30
Total Protein 5.4 g/dl (6.3-8.2) L D 12/15/24 04:30
Albumin 2.2 g/dl (3.5-5.0) L 12/15/24 04:30
Physical Exam
-
Gen: nonverbal, eyes open, mouth open
Abd: soft, no wince with palpation, no rigitidity or guarding, no distension
FMS with brown stool, small amount of bloody fluid
Patient has a griffiths catheter: Yes (chronic)
Patient has a central line: Yes (HD tunnelled cath)
--- NOTE | 2024-12-15 14:56 | PN.CDI ---
CDI
- -
CDI:
Physician Documentation Request
Admit Date: 12/13/24 23:29
Dear Doctor Raúl,
Please review the following and provide your response in the progress notes.
Clinical Indicators:
Pt admitted with sepsis 2/2 ischemic bowel/Rectal bleeding
Documented per [facility] note 12/15 @0909,' Patient admitted with...R ischial unstageable probable stage 4 pressure injury with moist brown eschar....Plan .... Sacral and L ischial wound care done. Skin prep to heels. ....'
Physician documentation of the type and location of wounds is required for compliant documentation. Based on the above clinical findings and your assessment, please provide the following in your progress note:
1. Location of the ulcer/wound, including laterality.
2. Type (etiology) of ulcer/wound:
- Pressure (decubitus) ulcer
- Non-pressure ulcer
- Other
Use of terms such as suspected, likely, concern for, or probable (associated with a specific diagnosis that is being evaluated, monitored, or treated as if it exists) are acceptable and can be coded in the inpatient setting, when documented at the
time of discharge.
Thank you,
Aniyah Roberts RN
CDI Specialist
[place] [facility]
Please use your independent medical judgment in providing your response.
*Source: National Pressure Ulcer Advisory Panel (NPUAP)
--- NOTE | 2024-12-15 15:01 | PN.CDI ---
CDI
- -
CDI:
Physician Documentation Request
Admit Date: 12/13/24 23:29
Dear Doctor Raúl,
Please review the following and provide your response in the progress notes.
Clinical Indicators:
Pt admitted with sepsis 2/2 ischemic bowel/Rectal bleeding
Progress note 12/14,' Skin: Stage 4 sacral decubitus ulcer...Neuro: CN 2-12 intact, unable to participate in neurological exam...Dysphagia: on PEG feeds [employer] C[employer] GIVER which are on hold h/o CVA with residual aphasia and paraplegia...'
ID consult , #CVA, paraplegia, bed bound, PEG on tube feed.Urinary retention with [place]... (Patient not verbal)...'
Case management note 12/14, ' Patient is from [facility], [facility], has a peg tube, on HD for dialysis, past CVA, non-verbal, and bedbound....'
Documented in rehab panel 12/14,'Previous functional ability Dependent..'
Ongoing discussion with palliative care
Please provide the diagnosis associated with the pts current functional status:
Functional Quadriplegia -complete immobility due to severe physical disability or frailty
Paraplegia only ( please specify type complete,incomplete,unable to determine)
Other ( please specify)
Use of terms such as suspected, likely, concern for, or probable (associated with a specific diagnosis that is being evaluated, monitored, or treated as if it exists) are acceptable and can be coded in the inpatient setting, when documented at the
time of discharge.
Thank you,
Aniyah Roberts RN
CDI Specialist
[place] [facility]
Please use your independent medical judgment in providing your response.
[2024-12-15] MEDS: MYCOSTATIN ORAL SUSPENSION 10 ML PO ×2 (15:29→20:44)
[2024-12-15] MEDS: MERREM 1000 MG IV (15:29)
[2024-12-15] MEDS: STERILE WATER FOR INJECTION 20 ML IV (15:30)
--- NOTE | 2024-12-15 16:00 | PTCARENOTE ---
bld cx, k+ and MRSA communicated with attending. pt receiving HD at present, seen by wound care. off loading, FMS continue. BP stable, no change in physical assessment. hourly rounds continue
--- NOTE | 2024-12-15 17:23 | W.PN.NEPH.HD ---
Assessment
-
pt seen during HD
BP stable
UF limited as he is NPO
on IVF per primary
poor prognosis
family still trying to make decision
CVC functions fine
Progress Note - Hemodialysis
-
Date of Service: December 15, 2024
Duration: 30 minutes and 3 hours
Potassium Bath: 4
Calcium Bath: 2.5
Opti-Dialyzer: 160
Ultrafiltration: Other (1-1.5)
Blood Flow: 400
Dialysate Flow: 600
Heparin: no
EPO: [id number]
[2024-12-15] MEDS: RETACRIT 10000 UNITS IV (18:15)
[2024-12-15] MEDS: VANCOCIN 150 IV (18:15)
--- NOTE | 2024-12-15 19:05 | W.PN.GI.CBS2 ---
Today's Communication / Plan
-
PLAN:
Pt with multiple issues on admission with anemia and bleeding from rectal area along with large sacral wound, hypotension with recurrent sepsis from PNA or ischemic bowel vs other
no current bleeding from stomach with neg lavage on exam but with rectal bleeding. Pt with hx chronic diarrhea prior to admission was on Loperimide BID, metamucil
? local source with red blood- hemorrhoids, ischemic process as suggested on CT vs other
Repeat CT scan 12/14/2024 shows redemonstration of extensive small bowel thickening and wall thickening of the ascending colon and mild circumferential wall thickening of proximal to mid transverse colon worrisome for ischemic bowel. No evidence of
pneumoperitoneum and improvement in portal venous gas.
He received 1 unit of packed red blood cells and hemoglobin has been between 7.7 and 8.7.
Rectal bag showing slightly more brown stool today.
Eliquis hold
cont Protonix BID and cont Carafate BID
cont abx and PO vanco with hx prior C-diff
NPO
Monitor H&H and transfuse as needed.
pt remains too ill for colonoscopy as this time
Dr. Olsen discussed with patient's regarding goals of care , palliative care following as well.
Assessment / Plan
-
Pt is a 59 year old man with a past medical history significant for PAF on Eliquis, CVA with residual paraplegia/aphasia, s/p trach with removal, PEG tube placed in Mar 2023 w/ h/o intraabdominal abscess with necrotizing infection requiring
multiple surgeries with removal and replacement of PEG placement (May 2023) and recent change to balloon tube, prior c-diff August 2024 then neg in November, cholelithiasis, NIDDM, CHF, ESRD on Dialysis, hypertension with admission [facility] 11/02- 11/11
with hematemesis with erythematous mucosa on contact on EGD, diarrhea with c-diff infection in summer and adjustment of antidiarrheal medication, urinary retention with with concern for sacral wound and discussion of colonic diversion for wound
management but family declined, and anemia requiring transfusion during admission. He returned 11/22-11/29- with concern for PNA with sepsis, leukocytosis, acute on chronic anemia multifactorial along with multiple other issues. Goals of care were
noted were discussed with family with continued full code status. Pt now returns with rectal bleeding. On admission multiple other issues with bleeding from sacral wound, hypotension with concern for sepsis and abnormal CT with concern for ischemic
bowel without perforation, Ascending thickening r/o mass, large sacral wound and b/l LL PNA.
EGD: 11/03/24 protano - Normal esophagus - Erythematous mucosa in the gastric body, fundus, and antrum. Biopsied. Suspect this was the cause of the hematemesis and anemia- Normal examined duodenum.
12/13/24 CT Abd/pelvis Wo Iv Cont
Diffuse bowel wall thickening and portal venous gas suggestive of possible ischemic bowel. No evidence for bowel perforation at this time.
Thickening of the ascending colon likely inflammatory or ischemic in etiology; however, recommend correlation with colonoscopy to rule out underlying mass.
Large sacral decubitus ulcer as described. Bilateral lower lobe pneumonia, progressed.
-rectal bleeding
-bleeding from sacral wound
-hypotension on admission
-CT with concern for bowel ischemia with portal gas cannot rule out underlying mass
-leukocytosis/SIRS on admission with concern for PNA
-hx c-diff
-hx hematemesis 11/2024 with erythematous mucosa gastric body
- anemia - acute on chronic blood loss
-hx diarrhea on prior admissions
-hx CVA with residual paraplegia/aphasia/dysphagia
-chronic peg /dysphagia with recent exchange
other med problems:
-h/o intraabdominal abscess with necrotizing infection requiring multiple surgeries with removal and replacement of PEG placement (May 2023)
- cholelithiasis
-NIDDM
-CHF
- ESRD on Dialysis
-hx HTN
PLAN:
Pt with multiple issues on admission with anemia and bleeding from rectal area along with large sacral wound, hypotension with recurrent sepsis from PNA or ischemic bowel vs other
no current bleeding from stomach with neg lavage on exam but with rectal bleeding. Pt with hx chronic diarrhea prior to admission was on Loperimide BID, metamucil
? local source with red blood- hemorrhoids, ischemic process as suggested on CT vs other
Repeat CT scan 12/14/2024 shows redemonstration of extensive small bowel thickening and wall thickening of the ascending colon and mild circumferential wall thickening of proximal to mid transverse colon worrisome for ischemic bowel. No evidence of
pneumoperitoneum and improvement in portal venous gas.
He received 1 unit of packed red blood cells and hemoglobin has been between 7.7 and 8.7.
Rectal bag showing slightly more brown stool today.
Eliquis hold
cont Protonix BID and cont Carafate BID
cont abx and PO vanco with hx prior C-diff
NPO
Monitor H&H and transfuse as needed.
pt remains too ill for colonoscopy as this time
Dr. Olsen discussed with patient's regarding goals of care , palliative care following as well.
Subjective
Subjective
Date of Service: December 15, 2024
No events overnight
Objective
Data Reviewed
Laboratory Data:
Laboratory Results
12/15/24 04:30
12/15/24 04:30
Laboratory Results
PT 20.3 Sec (11.4-14.6) H 12/13/24 20:02
INR 1.72 12/13/24 20:02
APTT 49.0 Sec (23.4-35.0) H 12/13/24 20:02
Total Bilirubin 0.9 mg/dl (0.2-1.3) 12/15/24 04:30
AST 19 U/L (17-59) 12/15/24 04:30
ALT 15 U/L (0-50) 12/15/24 04:30
Alkaline Phosphatase 98 U/L (38-126) 12/15/24 04:30
Vital Signs and I&O:
Vital Signs
Temp Pulse Resp BP Pulse Ox
96.5 F L 82 12 109/57 99
12/15/24 15:17 12/15/24 18:45 12/15/24 18:45 12/15/24 18:45 12/15/24 18:45
I&O
12/14/24 12/15/24 12/16/24
06:59 06:59 06:59
Intake Total 250 / 250
Output Total 50 / 50 610 / 610
Balance 200 / 200 -610 / -610
Physical Exam
Physical Exam
GI: Soft, Non Distended and Non Tender
[2024-12-15] MEDS: HEPARIN 3600 UNITS INTRACATH (19:45)
[2024-12-15] MEDS: DAKIN'S SOLUTION 0.125% 1/4 STRENGTH 473 ML TOPICAL (21:36)
[2024-12-16] VITALS (33 sets, daily range): BP systolic 87–178; BP diastolic 43–95
--- NOTE | 2024-12-16 05:43 | PTCARENOTE ---
patient's assessment charted. FMS continues. CHG bath done. Wound care per order. care on going.
[2024-12-16] MEDS: NSS 1000 IV ×2 (08:23→21:30)
[2024-12-16] MEDS: MYCOSTATIN ORAL SUSPENSION 10 ML PO ×3 (08:24→21:28)
[2024-12-16] MEDS: TYLENOL 650 MG TUBE (08:24)
[2024-12-16] MEDS: ZYLOPRIM 100 MG TUBE (08:24)
[2024-12-16] MEDS: CARAFATE SUSPENSION 1 GM TUBE ×2 (08:24→21:27)
[2024-12-16] MEDS: PROTONIX IV 40 MG IV ×2 (08:25→21:26)
[2024-12-16] MEDS: ULTRAM 50 MG TUBE ×2 (08:25→21:26)
[2024-12-16] MEDS: NSS (PRESERVATIVE FREE) 10 ML IV ×2 (08:25→21:26)
[2024-12-16] MEDS: DAKIN'S SOLUTION 0.125% 1/4 STRENGTH 1 ML TOPICAL (08:26)
[2024-12-16] MEDS: ZOLOFT 25 MG TUBE (08:26)
[2024-12-16] MEDS: DESENEX/MITRAZOL/ZEASORB 1 APPLIC TOPICAL ×2 (08:27→21:28)
[2024-12-16] MEDS: FIRVANQ 125 MG TUBE (08:29)
--- NOTE | 2024-12-16 09:09 | W.PN.HOSP.TC ---
Today's Communication/Plan
-
ultimately care is futile, see plan
Assessment / Plan
Assessment / Plan
Gen: NAD, Awake and alert, NCTA
Eyes: EOMI, PERRLA, no scleral icterus.
Neck: supple.
CV: remains RRR, +S1/S2, no m/r/g.
Resp: CTAB anteriorly, no rales, wheezes, or rhonchi.
Abd: +BS, soft, NT, ND
Skin: no LE edema
Neuro: CN 2-12 intact, unable to participate in neurological exam
Psych: Calm
12/13/24 21:05 Blood/Venous Blood Culture - Preliminary
Enterococcus faecalis
12/13/24 21:05 Blood/Venous Gram Stain - Preliminary
12/13/24 21:05 Blood/Venous Blood Culture - Preliminary
No Growth in 48 hours- Final report to follow
12/14/24 15:01 Nose MRSA Screen - Final
Staph aureus MRSA
12/13/24 21:05 Feces/Stool Salmonella/Shigella Culture - Preliminary
Culture in Progress
12/13/24 21:05 Feces/Stool Campylobacter Culture - Preliminary
Culture in Progress
12/13/24 21:05 Feces/Stool C. difficile GDH Antigen & Toxins - Final
Negative for toxigenic C.difficile
CT A/P w/IV: Diffuse bowel wall thickening and portal venous gas suggestive of possible ischemic bowel. No evidence for bowel perforation at this time. Thickening of the ascending colon likely inflammatory or ischemic in etiology; however, recommend
correlation with colonoscopy to rule out underlying mass. Large sacral decubitus ulcer as described. Bilateral lower lobe pneumonia, progressed.
CT A/P with PO/IV: Redemonstration of extensive small bowel wall thickening and wall thickening of the ascending colon. There is also mild circumferential wall thickening of proximal to mid transverse colon. This is worrisome for ischemic bowel, as
noted previously. Improvement in portal venous gas. No evidence for pneumoperitoneum. Layering stones versus sludge in the gallbladder lumen. Small amount of perihepatic fluid. There is also moderate fluid in the lesser sac. Redemonstration of large
sacral decubitus ulcer. There is absence of the distal aspect of the sacrum and coccyx; this is without change. Anasarca. Kidneys do not excrete contrast material. This is consistent with known renal failure. Hepatomegaly. No focal hepatic lesion.
What likely represents pneumonia in the lower lobes noted. This is stable on the left, and worse on the right.
Acute blood loss anemia due to acute rectal bleeding:
-exacerbated by Eliquis which remains on hold
-blood return with rectal tube placement in ER
-s/p 1U pRBCs
-trend Hb
-cont PPI
-GI following
Sepsis/bacteremia, POA:
-likely due to ischemic bowel (imaging above), less likely PNA
-s/p 30cc/kg NS bolus, BPs improved
-BCx with enterococcus
-cont Vanco (IV and PO as C diff Ag POS in the past) and Meropenem as per ID
-Surgery and GI following
-case discussed with Dr. Peters over [employer] on 12/15/24. He is not recommending surgery and is recommending hospice.
-Quoted from Dr. Peters's progress note 12/15/24, 'Discussed GOC with . Rec DNR/DNI status. Discussed hospice briefly as well. His imaging shows improvement and he remains stable overall. His exam is limited but appears benign. Advised he is
high risk for surgery. Discussed concern for extensive bowel involvement, which if it does not improve, may make surgical management futile. She verbalized understanding.'
Other problems:
Stage 4 sacral pressure ulcer: wound care following
Recent severe erosive gastritis (no H. pylori on recent path)
PAF: Holding Eliquis
ESRD on HD: renal following for HD (M/W/F)
h/o chronic Diarrhea
h/o C Diff carrier status (Ag POS)
Dysphagia: on PEG feeds [employer] which are on hold
h/o CVA with residual aphasia and paraplegia
Hepatosplenomegaly
Pt is critically ill with multiple, severe, active comorbidities. I discussed this at length with the pt's over the phone 12/14 and 12/15 and recommended hospice. Palliative care following. Ultimately care is futile.
FULL/SCDs
Anticipated Discharge: > 48 hours
Subjective/Interval History
-
Date of Service: December 16, 2024
Pt overall nonverbal but appeared to try and mouth the word 'good' when I asked how he was feeling.
Objective Data
-
Vital Signs:
Vital Signs
Temp Pulse Resp BP Pulse Ox
97.7 F 86 19 124/60 98
12/16/24 08:14 12/16/24 05:30 12/16/24 05:30 12/16/24 05:30 12/16/24 05:30
I&O
12/15/24 12/16/24 12/17/24
06:59 06:59 06:59
Output Total 610 / 610
Balance -610 / -610
--- NOTE | 2024-12-16 09:25 | PHA.VAN.FU ---
Vancomycin Assessment / Plan
- Assessment
Hemodialysis Schedule: MWF
Last Hemodialysis performed: 12/15
Concomitant Antimicrobials: meropenem
- Dosing Plan
Dosing by Level: Hold off on dosing today
- Monitoring Plan
Random Level: pre-HD 12/17
- Follow Up
Pharmacy will continue to follow.
Vancomycin Follow UP
- -
Patient Age: 59
Patient Sex: Male
Vancomycin Day #: 3
Indication: Gi / Intra-Abdominal
Requesting Provider: Dr. Olsen / Eddi
Pertinent Antimicrobial Allergies:
NKDA
Height / Weight:
Height 5 ft 9 in
Actual Weight 85.9 kg
Pertinent Past Medical History: ESRD - HD, paraplegia, BMI: 28
- Vital Signs / Lab Results
Temp Pulse Resp BP Pulse Ox
97.7 F 86 19 124/60 98
12/16/24 08:14 12/16/24 05:30 12/16/24 05:30 12/16/24 05:30 12/16/24 05:30
Lab Results - Hematology
12/13/24 12/14/24 12/15/24
20:02 06:27 04:30
WBC 22.8 H 19.0 H 18.2 H
Lab Results - Chemistry
12/13/24 12/14/24 12/15/24
20:02 06:27 04:30
BUN 44 H 49 H 48 H
Creatinine 2.2 H 2.1 H 2.6 H
Estimated Creat Clear 36 38 31
Albumin 2.9 L 2.2 L
12/13/24 12/14/24
20:01 00:13
Lactic Acid 1.9 1.4
Microbiology Results
12/13/24 21:05 Blood Culture - Preliminary
Blood/Venous Enterococcus faecalis
Gram Stain - Preliminary
12/13/24 21:05 Blood Culture - Preliminary
Blood/Venous No Growth in 48 hours- Final report to follow
12/14/24 15:01 MRSA Screen - Final
Nose Staph aureus MRSA
12/13/24 21:05 Salmonella/Shigella Culture - Preliminary
Feces/Stool Culture in Progress
Campylobacter Culture - Preliminary
Culture in Progress
12/13/24 21:05 C. difficile GDH Antigen & Toxins - Final
Feces/Stool Negative for toxigenic C.difficile
Therapeutic Drug Monitoring
Random Vancomycin 16.3 ug/ml 12/14/24 11:24
--- NOTE | 2024-12-16 09:28 | W.PN.ID1 ---
Date of Service
Date of Service: December 16, 2024
Today's Communication
See below.
Assessment / Plan
# Ischemic bowel. Rectal bleeding resolved.
# Enterococcus faecalis bacteremia 1 of 2 sets, suspect from gut translocation
# s/p Hypotension from blood loss rectal bleeding
# Leukocytosis persists
# Progression of large Stage IV sacral decubitus, probably underlying osteo. No role for halfway IV abx (futile).
# Chronic stage IV sacral decubitus wound, too high risk for diverting colostomy
# hx C. diff x 1 (august 2024)
# ESRD on HD via tunneled catheter
# CVA, paraplegia, bed bound, PEG on tube feed
# History of intra-abdominal abscess/necrotizing infection s/p exploratory laparotomy
PLAN:
- Repeat blood x2 pending
- stool C. diff neg
- Continue IV vancomycin with dialysis for bacteremia, plan for 14 days through 12/27/24
When close to discharge, submit abx script to [facility] HD.
- Continue meropenem 1g IV q24 (start date 12/14/24) for intra-ab coverage and h/o MDRO. Plan for 5 to 7 d course
- Continue C. diff prophylaxis with enteric Vanco 125mg daily through 01/01/25.
- Trend wbc.
- Overall prognosis is poor. Remains full code.
- Continue C discussion with .
Conditions present on admission:
CVA and paraplegia
Dysphagia status post PEG
Atrial fibrillation on Eliquis
HTN
End-stage renal disease on hemodialysis Friday via right IJ PermCath
GIB/erosive gastritis
C. diff x 1 (08/2024)
Chronic sacral decubitus wounds, too high risk for diverting colostomy
Urinary retention with griffiths
Left upper extremity AV fistula placement
History of intra-abdominal abscess/necrotizing infection s/p exploratory laparotomy
Chief Complaint
-: Leukocytosis and Other
Subjective / Review of Systems
Awake. Nonverbal.
Vital Signs / Physical Exam
Vital Signs
Vital Signs
Temp Pulse Resp BP Pulse Ox
97.7 F 86 19 124/60 98
12/16/24 08:14 12/16/24 05:30 12/16/24 05:30 12/16/24 05:30 12/16/24 05:30
Physical Exam
Constitutional: Chronically Ill
Cardiovascular: Regular Rate and S1/S2
Gastrointestinal: Soft, Non Tender, Non Distended, Normal Bowel Sounds and Other (FMS dark brown liquid stool)
Genito-Urinary: Griffiths and Clear Urine
Extremities: Negative Edema
Wound: Other (Review wound photos: large sacral wound with clean tissue, FMS in place to keep stool from wound)
Neurological: Awake
Lines: HD Cath (right chest wall, no erythema)
Objective Data
Lab Data
PT 20.3 Sec (11.4-14.6) H 12/13/24 20:02
INR 1.72 12/13/24 20:02
APTT 49.0 Sec (23.4-35.0) H 12/13/24 20:02
Estimated Creat Clear 31 ml/min 12/15/24 04:30
Lactic Acid 1.4 mmol/L (0.7-2.0) 12/14/24 00:13
Total Bilirubin 0.9 mg/dl (0.2-1.3) 12/15/24 04:30
AST 19 U/L (17-59) 12/15/24 04:30
ALT 15 U/L (0-50) 12/15/24 04:30
Alkaline Phosphatase 98 U/L (38-126) 12/15/24 04:30
Most recent labs reviewed.
Micro Results:
12/13/24 21:05 Blood Culture - Preliminary
Blood/Venous Enterococcus faecalis
Gram Stain - Preliminary
12/13/24 21:05 Blood Culture - Preliminary
Blood/Venous No Growth in 48 hours- Final report to follow
12/15/24 17:08 Blood Culture - Pending
Blood/Venous
12/15/24 17:08 Blood Culture - Pending
Blood/Venous
12/14/24 15:01 MRSA Screen - Final
Nose Staph aureus MRSA
12/13/24 21:05 Salmonella/Shigella Culture - Preliminary
Feces/Stool Culture in Progress
Campylobacter Culture - Preliminary
Culture in Progress
Shiga Toxin Test - Pending
12/13/24 21:05 C. difficile GDH Antigen & Toxins - Final
Feces/Stool Negative for toxigenic C.difficile
12/13/24 CT a/p: Diffuse bowel wall thickening and portal venous gas suggestive of possible ischemic bowel. No evidence for bowel perforation at this time. Thickening of the ascending colon likely inflammatory or ischemic in etiology; however,
recommend correlation with colonoscopy to rule out underlying mass. Bilateral lower lobe pneumonia, progressed. Redemonstration of large midline/right para midline sacral decubitus ulcer at the level of and extending to the sacrococcygeal junction,
progressed from prior with probable chronic erosion of the coccyx. No overt CT evidence for active osteomyelitis of the distal sacrum.
Care Review
Plan reviewed with: Physician (Dr. damon)
[2024-12-16 10:57] LABS: Hematocrit 24.6 % (39.0-52.0); Hemoglobin 7.3 g/dL (13.0-18.0); Mean Corp Hgb Conc. 29.7 g/dL (33.0-37.0); Mean Corpuscular Volume 89.5 fL (80.0-94.0); Platelet Count 321 10^3/uL (130-400); Red Cell Dist. Width 16.3 % (11.5-14.5)
[2024-12-16 11:15] LABS: Blood Urea Nitrogen 23 mg/dl (9-20); Calcium 8.2 mg/dl (8.4-10.2); Carbon Dioxide 24 mmol/L (22-30); Chloride 103 mmol/L (98-107); Estimated Creatinine Clearance 42 ml/min; Glucose 52 mg/dl (70-99); Potassium 3.3 mmol/L (3.5-5.1); Sodium 135 mmol/L (135-145); eGFR 40.13
[2024-12-16 11:48] LABS: Glucose - Point of Care 66 mg/dl (70-99)
[2024-12-16 12:07] LABS: Glucose - Point of Care 55 mg/dl (70-99)
[2024-12-16] MEDS: DEXTROSE 50% SYRINGE 25 GRAMS IV (12:16)
--- NOTE | 2024-12-16 12:30 | W.PN.NEPH.PH ---
Today's Communication / Plan
-
HD tomorrow if hemodynamic suport
Assessment/Plan
-
IMP:
Acute blood loss anemia 2/2 GIB on anemia of chronic disease 2/2 ESRD
Diarrhea
Hx of recent C.diff
Leukocytosis
ESRD on HD-MWF [facility]
left UE AVF
right chest wall catheter
Mild hypokalemia
Dysphagia on PEG
Hx of CVA with residual aphasia and paraplegia
Urine retention
NIDDM
Plan:
Awaiting family decision
will cont HD for now, schedule tomorrow
Antibiotics per ID
soft BP, monitor
GI follows suspected to have ischemic bowel
hb decreasing, prn transfusion
poor prognosis
-
-
Date of Service: December 16, 2024
CC / HPI / ROS
-
Chief Complaint:
ESRD,
History of Present Illness:
ESRD chronic MWF
on antibiotics for ESBL enterococcal bacteremia
Anemia worsenign hb 7.3
BP soft, NPO now
WBC remain high 18.2k
Review of Systems:
No fevers
Nonverbal
Labs
-
Labs:
WBC 18.2 10^3/uL (4.8-10.8) H 12/16/24 10:48
RBC 2.75 10^6/uL (4.70-6.10) L 12/16/24 10:48
Hgb 7.3 g/dL (13.0-18.0) L 12/16/24 10:48
Hct 24.6 % (39.0-52.0) L 12/16/24 10:48
Plt Count 321 10^3/uL (130-400) 12/16/24 10:48
Sodium 135 mmol/L (135-145) 12/16/24 10:48
Potassium 3.3 mmol/L (3.5-5.1) L 12/16/24 10:48
Chloride 103 mmol/L (98-107) 12/16/24 10:48
Carbon Dioxide 24 mmol/L (22-30) 12/16/24 10:48
BUN 23 mg/dl (9-20) H 12/16/24 10:48
Creatinine 1.9 mg/dL (0.7-1.3) H 12/16/24 10:48
eGFR 40.13 12/16/24 10:48
Glucose 52 mg/dl (70-99) L* 12/16/24 10:48
Calcium 8.2 mg/dl (8.4-10.2) L 12/16/24 10:48
Albumin 2.2 g/dl (3.5-5.0) L 12/15/24 04:30
Physical Exam
-
Vital Signs:
Vital Signs
Temp Pulse Resp BP Pulse Ox
97.7 F 81 11 120/58 97
12/16/24 08:14 12/16/24 10:00 12/16/24 10:00 12/16/24 08:30 12/16/24 10:00
Cardiovascular:: Regular rate and rhythm
Respiratory:: Bilateral: Coarse
Lung Excursion:: Normal
Abdomen:: Nontender and Soft
Bowel Sounds:: Normal
Extremity Edema:: None: Bilateral:
[place] Catheter: Yes
[2024-12-16 12:38] LABS: Glucose - Point of Care 151 mg/dl (70-99)
--- NOTE | 2024-12-16 12:49 | STATUS ---
SITUATION:
BMP glucose result 52
BACKGROUND:
NPO , PEG clamped no tube feedings, IVF NS
ASSESSMENT:
Awake, alert eyes open and tracks at times. Not diaphoretic.
RECOMMENDATION:
4oz apple juice via peg - post accu check 66
4oz apple juice via peg - post accu check [address] Olsen orders received for 25gm [id number] and post accu check 151
--- NOTE | 2024-12-16 15:32 | W.PN.GS2 ---
Today's Communication / Plan
-
`
Assessment / Plan
-
Patient is a 59 yo M p/w bright red blood per rectum in setting of Eliquis use and CT imaging suggestive of rather extensive mesenteric ischemia with initial CT imaging demonstrating significant degree of portal venous gas and pneumatosis but no
free air. Subsequent follow-up CT imaging yesterday with improving degree of portal venous gas and pneumatosis but still with residual bowel wall thickening. No free air.
Given clinical stability (No pressor requirement, no involuntary guarding or rigidity on examination) no absolute signs of irreversible mesenteric ischemia recommend continued supportive care as patient is extremely high risk candidate for
consideration of surgery and given rather diffuse findings on CT imaging if there was this degree of progressive irreversible small intestinal ischemia would not be compatible survival.
Continue current supportive care
Bowel rest
Maintain normotension
Will follow
Subjective Data
-
Date of Service: December 16, 2024
Patient seen and examined earlier in the day.
He seemed to be nodding appropriately to questions and nodded no to abdominal pain or tenderness during examination. He also was nodding no to nausea or upset stomach.
Objective Data
-
Intake and Output
12/15/24 12/16/24 12/17/24
06:59 06:59 06:59
Output Total 610 / 610
Balance -610 / -610
Output:
Liquid stool amount 600 / 600
Rectum 600 / 600
Urine, [place]
Vital Signs
Temp Pulse Resp BP Pulse Ox
97.6 F 81 15 123/79 100
12/16/24 15:11 12/16/24 12:30 12/16/24 12:30 12/16/24 12:30 12/16/24 12:30
Lab Results
12/16/24 10:48
12/16/24 10:48
Calcium 8.2 mg/dl (8.4-10.2) L 12/16/24 10:48
Total Bilirubin 0.9 mg/dl (0.2-1.3) 12/15/24 04:30
AST 19 U/L (17-59) 12/15/24 04:30
ALT 15 U/L (0-50) 12/15/24 04:30
Alkaline Phosphatase 98 U/L (38-126) 12/15/24 04:30
Total Protein 5.4 g/dl (6.3-8.2) L D 12/15/24 04:30
Albumin 2.2 g/dl (3.5-5.0) L 12/15/24 04:30
Physical Exam
-
NAD
Alert and appears to be nodding appropriately to questions at times
ABD: Soft, obese, not tensely distended. Multiple abdominal wall surgical scars. Left upper quadrant PEG site clean.
No tenderness elicited during palpation, no voluntary or involuntary guarding.
--- NOTE | 2024-12-16 16:04 | CM ---
F/U: Hospitalist Note states that conversation with Sig-Other about futile care was had, but unsure of the result of that conversation. It appears that the Si-Other did not make a move towards comfort. Case Management to Follow. PLAN: Hospice, but
likely return to [facility].
[2024-12-16] MEDS: STERILE WATER FOR INJECTION 20 ML IV (17:06)
[2024-12-16] MEDS: MERREM 1000 MG IV (17:06)
--- NOTE | 2024-12-16 19:55 | W.PN.GI.CBS2 ---
Today's Communication / Plan
-
Abdominal x-ray showed a showing overall nonspecific bowel gas pattern
Rectal bag showing brown stool today.
Hemoglobin seems to be stable, Eliquis on hold
cont Protonix BID and cont Carafate BID
cont abx and PO vanco with hx prior C-diff
Monitor H&H and transfuse as needed.
pt remains too ill for colonoscopy as this time
If white count comes down without any fevers and no rectal bleeding, consider starting tube feeds at low-dose.
I called patient's today regarding any decisions made with goals of care, she says patient understands everything that is going around but is not able to communicate and she wants to continue current management.
No further recommendations from GI. Will sign off, please call back if needed
Assessment / Plan
-
Pt is a 59 year old man with a past medical history significant for PAF on Eliquis, CVA with residual paraplegia/aphasia, s/p trach with removal, PEG tube placed in Mar 2023 w/ h/o intraabdominal abscess with necrotizing infection requiring
multiple surgeries with removal and replacement of PEG placement (May 2023) and recent change to balloon tube, prior c-diff August 2024 then neg in November, cholelithiasis, NIDDM, CHF, ESRD on Dialysis, hypertension with admission [facility] 11/02- 11/11
with hematemesis with erythematous mucosa on contact on EGD, diarrhea with c-diff infection in summer and adjustment of antidiarrheal medication, urinary retention with with concern for sacral wound and discussion of colonic diversion for wound
management but family declined, and anemia requiring transfusion during admission. He returned 11/22-11/29- with concern for PNA with sepsis, leukocytosis, acute on chronic anemia multifactorial along with multiple other issues. Goals of care were
noted were discussed with family with continued full code status. Pt now returns with rectal bleeding. On admission multiple other issues with bleeding from sacral wound, hypotension with concern for sepsis and abnormal CT with concern for ischemic
bowel without perforation, Ascending thickening r/o mass, large sacral wound and b/l LL PNA.
EGD: 11/03/24 protano - Normal esophagus - Erythematous mucosa in the gastric body, fundus, and antrum. Biopsied. Suspect this was the cause of the hematemesis and anemia- Normal examined duodenum.
12/13/24 CT Abd/pelvis Wo Iv Cont
Diffuse bowel wall thickening and portal venous gas suggestive of possible ischemic bowel. No evidence for bowel perforation at this time.
Thickening of the ascending colon likely inflammatory or ischemic in etiology; however, recommend correlation with colonoscopy to rule out underlying mass.
Large sacral decubitus ulcer as described. Bilateral lower lobe pneumonia, progressed.
-rectal bleeding
-bleeding from sacral wound
-hypotension on admission
-CT with concern for bowel ischemia with portal gas cannot rule out underlying mass
-leukocytosis/SIRS on admission with concern for PNA
-hx c-diff
-hx hematemesis 11/2024 with erythematous mucosa gastric body
- anemia - acute on chronic blood loss
-hx diarrhea on prior admissions
-hx CVA with residual paraplegia/aphasia/dysphagia
-chronic peg /dysphagia with recent exchange
other med problems:
-h/o intraabdominal abscess with necrotizing infection requiring multiple surgeries with removal and replacement of PEG placement (May 2023)
- cholelithiasis
-NIDDM
-CHF
- ESRD on Dialysis
-hx HTN
PLAN:
Pt with multiple issues on admission with anemia and bleeding from rectal area along with large sacral wound, hypotension with recurrent sepsis from PNA or ischemic bowel vs other
no current bleeding from stomach with neg lavage on exam but with rectal bleeding. Pt with hx chronic diarrhea prior to admission was on Loperimide BID, metamucil
? local source with red blood- hemorrhoids, ischemic process as suggested on CT vs other
Repeat CT scan 12/14/2024 shows redemonstration of extensive small bowel thickening and wall thickening of the ascending colon and mild circumferential wall thickening of proximal to mid transverse colon worrisome for ischemic bowel. No evidence of
pneumoperitoneum and improvement in portal venous gas.
Abdominal x-ray showed a showing overall nonspecific bowel gas pattern
Rectal bag showing brown stool today.
Hemoglobin seems to be stable, Eliquis on hold
cont Protonix BID and cont Carafate BID
cont abx and PO vanco with hx prior C-diff
Monitor H&H and transfuse as needed.
pt remains too ill for colonoscopy as this time
If white count comes down without any fevers and no rectal bleeding, consider starting tube feeds at low-dose.
I called patient's today regarding any decisions made with goals of care, she says patient understands everything that is going around but is not able to communicate and she wants to continue current management.
No further recommendations from GI. Will sign off, please call back if needed
Subjective
Subjective
Date of Service: December 16, 2024
No events overnight, brown bowel movement in the rectal bag
Objective
Data Reviewed
Laboratory Data:
Laboratory Results
12/16/24 10:48
12/16/24 10:48
Laboratory Results
PT 20.3 Sec (11.4-14.6) H 12/13/24 20:02
INR 1.72 12/13/24 20:02
APTT 49.0 Sec (23.4-35.0) H 12/13/24 20:02
Total Bilirubin 0.9 mg/dl (0.2-1.3) 12/15/24 04:30
AST 19 U/L (17-59) 12/15/24 04:30
ALT 15 U/L (0-50) 12/15/24 04:30
Alkaline Phosphatase 98 U/L (38-126) 12/15/24 04:30
Vital Signs and I&O:
Vital Signs
Temp Pulse Resp BP Pulse Ox
97.0 F 79 11 170/95 99
12/16/24 19:27 12/16/24 18:30 12/16/24 18:30 12/16/24 18:30 12/16/24 18:00
I&O
12/15/24 12/16/24 12/17/24
06:59 06:59 06:59
Intake Total 1610 / 1610
Output Total 610 / 610 100 / 100
Balance -610 / -610 1510 / 1510
Physical Exam
Physical Exam
GI: Soft, Non Distended and Non Tender
[2024-12-16] MEDS: DAKIN'S SOLUTION 0.125% 1/4 STRENGTH 473 ML TOPICAL (21:27)
[2024-12-17] VITALS (31 sets, daily range): BP systolic 80–177; BP diastolic 41–88; BMI 28.9
--- NOTE | 2024-12-17 00:17 | PTCARENOTE ---
Pt bp hypertensive, night SPINE SPECIALIST made aware IVF now on hold. Pt appears to be able to answer yes and no question by nodding his head. Pt denies pain and anxiety at this time. Bed in lowest position. Assessment care and vitals as charted.
[2024-12-17 06:22] LABS: Hematocrit 26.3 % (39.0-52.0); Hemoglobin 7.6 g/dL (13.0-18.0); Mean Corp Hgb Conc. 28.9 g/dL (33.0-37.0); Mean Corpuscular Volume 92.0 fL (80.0-94.0); Platelet Count 346 10^3/uL (130-400); Red Cell Dist. Width 16.5 % (11.5-14.5)
[2024-12-17] MEDS: NSS IV (06:24)
[2024-12-17 06:36] LABS: Blood Urea Nitrogen 27 mg/dl (9-20); Calcium 8.5 mg/dl (8.4-10.2); Carbon Dioxide 26 mmol/L (22-30); Chloride 103 mmol/L (98-107); Estimated Creatinine Clearance 40 ml/min; Glucose 73 mg/dl (70-99); Potassium 3.4 mmol/L (3.5-5.1); Sodium 134 mmol/L (135-145); eGFR 37.74
--- NOTE | 2024-12-17 09:12 | W.PN.ID1 ---
Date of Service
Date of Service: December 17, 2024
Today's Communication
consider line holiday
repeat blood cultures
TTE
Assessment / Plan
# Ischemic bowel. Rectal bleeding resolved.
# Enterococcus faecalis bacteremia 1 of 2 sets, suspect from gut translocation
# s/p Hypotension from blood loss rectal bleeding
# Leukocytosis persists
# Progression of large Stage IV sacral decubitus, probably underlying osteo. No role for terminal gauger IV abx (futile).
# Chronic stage IV sacral decubitus wound, too high risk for diverting colostomy
# hx C. diff x 1 (august 2024)
# ESRD on HD via tunneled catheter
# CVA, paraplegia, bed bound, PEG on tube feed
# History of intra-abdominal abscess/necrotizing infection s/p exploratory laparotomy
PLAN:
- Repeat blood x2 12/15 also with e faecalis; repeat another two sets today
- echo
- consider line holiday, reached out to nephrology
- stool C. diff neg
- Continue IV vancomycin with dialysis for bacteremia, plan for 14 days through 12/27/24
When close to discharge, submit abx script to [facility].
- Continue meropenem 1g IV q24 (start date 12/14/24) for intra-ab coverage and h/o MDRO. Plan for 5 to 7 d course
- Continue C. diff prophylaxis with enteric Vanco 125mg daily through 01/01/25.
- Trend wbc.
- Overall prognosis is poor. Remains full code.
- Continue GOC discussion with .
Conditions present on admission:
CVA and paraplegia
Dysphagia status post PEG
Atrial fibrillation on Eliquis
HTN
End-stage renal disease on hemodialysis Friday via right IJ PermCath
GIB/erosive gastritis
C. diff x 1 (08/2024)
Chronic sacral decubitus wounds, too high risk for diverting colostomy
Urinary retention with griffiths
Left upper extremity AV fistula placement
History of intra-abdominal abscess/necrotizing infection s/p exploratory laparotomy
Chief Complaint
-: Leukocytosis and Other
Subjective / Review of Systems
afebrile
bp stable
Vital Signs / Physical Exam
Vital Signs
Vital Signs
Temp Pulse Resp BP Pulse Ox
96.5 F L 69 14 168/80 100
12/17/24 07:15 12/17/24 06:00 12/17/24 06:00 12/17/24 06:00 12/17/24 06:00
Physical Exam
Constitutional: No Acute Distress and Chronically Ill
Cardiovascular: Regular Rate and S1/S2; Negative Murmur or Rub
Pulmonary: Clear and Symmetric; Negative Wheezes or Rales
Gastrointestinal: Soft, Non Tender, Non Distended and Normal Bowel Sounds
Skin: Warm and Dry; Negative Rash or Jaundice
Lines: HD Cath (no erythema, warmth, drainage or tenderness)
Objective Data
Lab Data
Lab Results
12/17/24 05:58
12/17/24 05:58
PT 20.3 Sec (11.4-14.6) H 12/13/24 20:02
INR 1.72 12/13/24 20:02
APTT 49.0 Sec (23.4-35.0) H 12/13/24 20:02
Estimated Creat Clear 40 ml/min 12/17/24 05:58
Lactic Acid 1.4 mmol/L (0.7-2.0) 12/14/24 00:13
Total Bilirubin 0.9 mg/dl (0.2-1.3) 12/15/24 04:30
AST 19 U/L (17-59) 12/15/24 04:30
ALT 15 U/L (0-50) 12/15/24 04:30
Alkaline Phosphatase 98 U/L (38-126) 12/15/24 04:30
Most recent labs reviewed.
Micro Results:
12/15/24 17:08 Blood Culture - Preliminary
Blood/Venous Enterococcus faecalis
Gram Stain - Preliminary
12/15/24 17:08 Blood Culture - Preliminary
Blood/Venous Positive culture in progress
Gram Stain - Preliminary
12/17/24 05:58 Blood Culture - Pending
Blood/Venous
12/13/24 21:05 Blood Culture - Preliminary
Blood/Venous No Growth in 72 hours- Final report to follow
12/13/24 21:05 Salmonella/Shigella Culture - Final
Feces/Stool No Salmonella, Shigella, Aeromonas or Plesiomonas species
isolated.
Campylobacter Culture - Final
No Campylobacter species isolated.
Shiga Toxin Test - Final
No E. coli Shiga Toxin 1 or 2 detected.
12/13/24 21:05 Blood Culture - Preliminary
Blood/Venous Enterococcus faecalis
Gram Stain - Preliminary
12/14/24 15:01 MRSA Screen - Final
Nose Staph aureus MRSA
12/13/24 21:05 C. difficile [facility] Antigen & Toxins - Final
Feces/Stool Negative for toxigenic C.difficile
12/13/24 CT a/p: Diffuse bowel wall thickening and portal venous gas suggestive of possible ischemic bowel. No evidence for bowel perforation at this time. Thickening of the ascending colon likely inflammatory or ischemic in etiology; however,
recommend correlation with colonoscopy to rule out underlying mass. Bilateral lower lobe pneumonia, progressed. Redemonstration of large midline/right para midline sacral decubitus ulcer at the level of and extending to the sacrococcygeal junction,
progressed from prior with probable chronic erosion of the coccyx. No overt CT evidence for active osteomyelitis of the distal sacrum.
--- NOTE | 2024-12-17 09:27 | W.PN.HOSP.TC ---
Today's Communication/Plan
-
see plan
Assessment / Plan
Assessment / Plan
Gen: NAD, Awake and alert, NCTA
Eyes: EOMI, PERRLA, no scleral icterus.
Neck: supple.
CV: continues to remain RRR, +S1/S2, no m/r/g.
Resp: remains CTAB anteriorly, no rales, wheezes, or rhonchi.
Abd: +BS, soft, NT, ND
Skin: no LE edema
Neuro: CN 2-12 intact, unable to participate in neurological exam
Psych: Calm
12/15/24 17:08 Blood/Venous Blood Culture - Preliminary
Enterococcus faecalis
12/15/24 17:08 Blood/Venous Gram Stain - Preliminary
12/15/24 17:08 Blood/Venous Blood Culture - Preliminary
Positive culture in progress
12/15/24 17:08 Blood/Venous Gram Stain - Preliminary
12/13/24 21:05 Blood/Venous Blood Culture - Preliminary
No Growth in 72 hours- Final report to follow
12/13/24 21:05 Feces/Stool Salmonella/Shigella Culture - Final
No Salmonella, Shigella, Aeromonas or Plesiomonas species
isolated.
12/13/24 21:05 Feces/Stool Campylobacter Culture - Final
No Campylobacter species isolated.
12/13/24 21:05 Feces/Stool Shiga Toxin Test - Final
No E. coli Shiga Toxin 1 or 2 detected.
12/13/24 21:05 Blood/Venous Blood Culture - Preliminary
Enterococcus faecalis
12/13/24 21:05 Blood/Venous Gram Stain - Preliminary
12/14/24 15:01 Nose MRSA Screen - Final
Staph aureus MRSA
12/13/24 21:05 Feces/Stool C. difficile [facility] Antigen & Toxins - Final
Negative for toxigenic C.difficile
CT A/P w/IV: Diffuse bowel wall thickening and portal venous gas suggestive of possible ischemic bowel. No evidence for bowel perforation at this time. Thickening of the ascending colon likely inflammatory or ischemic in etiology; however, recommend
correlation with colonoscopy to rule out underlying mass. Large sacral decubitus ulcer as described. Bilateral lower lobe pneumonia, progressed.
CT A/P with PO/IV: Redemonstration of extensive small bowel wall thickening and wall thickening of the ascending colon. There is also mild circumferential wall thickening of proximal to mid transverse colon. This is worrisome for ischemic bowel, as
noted previously. Improvement in portal venous gas. No evidence for pneumoperitoneum. Layering stones versus sludge in the gallbladder lumen. Small amount of perihepatic fluid. There is also moderate fluid in the lesser sac. Redemonstration of large
sacral decubitus ulcer. There is absence of the distal aspect of the sacrum and coccyx; this is without change. Anasarca. Kidneys do not excrete contrast material. This is consistent with known renal failure. Hepatomegaly. No focal hepatic lesion.
What likely represents pneumonia in the lower lobes noted. This is stable on the left, and worse on the right.
Acute blood loss anemia due to acute rectal bleeding:
-exacerbated by Eliquis which remains on hold (and I honestly do not see how Eliquis could safely be restarted)
-blood return with rectal tube placement in ER
-s/p 1U pRBCs
-trend Hb
-cont PPI
-GI saw in consult
Sepsis/bacteremia, POA:
-likely due to ischemic bowel (imaging above), less likely PNA
-s/p 30cc/kg NS bolus, BPs improved
-BCx with enterococcus
-cont Vanco (IV and PO as C diff Ag POS in the past) and Meropenem as per ID
-Surgery following
-case discussed with Dr. Peters over [employer] on 12/15/24. He is not recommending surgery and is recommending hospice.
-Quoted from Dr. Peters's progress note 12/15/24, 'Discussed GOC with . Rec DNR/DNI status. Discussed hospice briefly as well. His imaging shows improvement and he remains stable overall. His exam is limited but appears benign. Advised he is
high risk for surgery. Discussed concern for extensive bowel involvement, which if it does not improve, may make surgical management futile. She verbalized understanding.'
-[employer] message sent to Dr. Ramirez (GI) asking that GI remain involved in care for reinitiation of TFs. Will also c/s nutrition.
-repeat BCxs POS, will pull IJ and attempt to use AVF for HD (discussed with renal). Repeat BCxs.
Other problems:
Stage 4 sacral pressure ulcer: wound care following
Recent severe erosive gastritis (no H. pylori on recent path)
PAF: Holding Eliquis
ESRD on HD: renal following for HD (M/W/F)
h/o chronic Diarrhea
h/o C Diff carrier status (Ag POS)
Dysphagia: on PEG feeds [employer] which are on hold
h/o CVA with residual aphasia and paraplegia
Hepatosplenomegaly
Pt is critically ill with multiple, severe, active comorbidities. I discussed this at length with the pt's over the phone 12/14 and 12/15 and recommended hospice. Palliative care following. Ultimately care is futile.
FULL/SCDs
Anticipated Discharge: > 48 hours
Subjective/Interval History
-
Date of Service: December 17, 2024
Non-verbal.
Objective Data
-
Labs:
Laboratory Results
12/17/24
05:58
WBC 15.0 H
Hgb 7.6 L
Hct 26.3 L
Plt Count 346
Sodium 134 L
Potassium 3.4 L
Chloride 103
Carbon Dioxide 26
BUN 27 H
Creatinine 2.0 H
Glucose 73
Calcium 8.5
Vital Signs:
Vital Signs
Temp Pulse Resp BP Pulse Ox
96.5 F L 69 14 168/80 100
12/17/24 07:15 12/17/24 06:00 12/17/24 06:00 12/17/24 06:00 12/17/24 06:00
I&O
12/16/24 12/17/24 12/18/24
06:59 06:59 06:59
Intake Total 1880 / 1880
Output Total 500 / 500
Balance 1380 / 1380
[2024-12-17] MEDS: NSS (PRESERVATIVE FREE) 10 ML IV ×2 (09:49→20:14)
[2024-12-17] MEDS: PROTONIX IV 40 MG IV ×2 (09:49→20:15)
[2024-12-17] MEDS: MYCOSTATIN ORAL SUSPENSION 10 ML PO ×3 (09:49→22:06)
[2024-12-17] MEDS: CARAFATE SUSPENSION 1 GM TUBE ×2 (09:50→20:14)
[2024-12-17] MEDS: ZYLOPRIM 100 MG TUBE (09:50)
[2024-12-17] MEDS: ULTRAM 50 MG TUBE ×2 (09:50→20:14)
[2024-12-17] MEDS: ZOLOFT 25 MG TUBE (09:51)
[2024-12-17] MEDS: TYLENOL 650 MG TUBE (09:51)
[2024-12-17] MEDS: DESENEX/MITRAZOL/ZEASORB 1 APPLIC TOPICAL ×2 (09:59→20:15)
[2024-12-17] MEDS: FIRVANQ 125 MG TUBE (09:59)
[2024-12-17] MEDS: DAKIN'S SOLUTION 0.125% 1/4 STRENGTH 1 ML TOPICAL (10:00)
--- NOTE | 2024-12-17 11:22 | W.PN.GS2 ---
Addendum entered and electronically signed by Jesus Peters MD 12/17/24 11:58:
I saw and examined the patient.
The Carpet Installation Specialist's note was reviewed and I agree with the note.
Comment: No abd pain nor ttp on exam, stool appears brown, no plans for surgical intervention. OK to start TF at low rate. After 24 hours if no further issues would begin adv to goal TF. GS will follow peripherally.
Original Note:
Today's Communication / Plan
-
ok to begin trickle tube feedings
Assessment / Plan
-
Patient is a 59 yo M p/w bright red blood per rectum in setting of Eliquis use and CT imaging on 12/13 suggestive of rather extensive mesenteric ischemia with initial CT imaging demonstrating significant degree of portal venous gas and pneumatosis
but no free air. Subsequent follow-up CT imaging on 12/14 with improving degree of portal venous gas and pneumatosis but still with residual bowel wall thickening. No free air.
Given clinical stability (No pressor requirement, no involuntary guarding or rigidity on examination, nonbloody stools) no absolute signs of irreversible mesenteric ischemia recommend continued supportive care as patient is extremely high risk
candidate for consideration of surgery and given rather diffuse findings on CT imaging if there was this degree of progressive irreversible small intestinal ischemia would not be compatible survival.
Plan:
Ok to begin tube feedings and follow for tolerance
Continue supportive care
Maintain normotension
Will follow
Subjective Data
-
Date of Service: December 17, 2024
Pt seen and examined at bedside with Dr. Peters. Nodding appropriately, minimal discomfort but denies pain. Denies nausea
Objective Data
-
Intake and Output
12/16/24 12/17/24 12/18/24
06:59 06:59 06:59
Intake Total 1880 / 1880
Output Total 500 / 500
Balance 1380 / 1380
Intake:
Oral fluids 0 / 0
IV fluids (Total) 1200 / 1200
Feeding tube flush amount 620 / 620
Fecal management system 60 / 60
irrigation (mL)
Rectum 60 / 60
Output:
Liquid stool amount 250 / 250
Rectum 250 / 250
Urine, Wellington 250 / 250
Other:
Number of unmeasured liquid
stools
Rectum 1
Vital Signs
Temp Pulse Resp BP Pulse Ox
96.5 F L 73 21 151/72 97
12/17/24 07:15 12/17/24 10:00 12/17/24 10:00 12/17/24 10:00 12/17/24 10:00
Lab Results
12/17/24 05:58
12/17/24 05:58
Calcium 8.5 mg/dl (8.4-10.2) 12/17/24 05:58
Total Bilirubin 0.9 mg/dl (0.2-1.3) 12/15/24 04:30
AST 19 U/L (17-59) 12/15/24 04:30
ALT 15 U/L (0-50) 12/15/24 04:30
Alkaline Phosphatase 98 U/L (38-126) 12/15/24 04:30
Total Protein 5.4 g/dl (6.3-8.2) L D 12/15/24 04:30
Albumin 2.2 g/dl (3.5-5.0) L 12/15/24 04:30
Physical Exam
-
NAD
Alert and appears to be nodding appropriately to questions at times
ABD: Soft, obese, not tensely distended. Multiple abdominal wall surgical scars. Left upper quadrant PEG site clean.
No tenderness elicited during palpation, no voluntary or involuntary guarding. Rectal tube with brown, loose stool
--- NOTE | 2024-12-17 11:59 | W.PN.NEPH.PH ---
Today's Communication / Plan
-
Dialysis today
PermCath removed after dialysis
Try to use the left arm for
Assessment/Plan
-
IMP:
Acute blood loss anemia 2/2 GIB on anemia of chronic disease 2/2 ESRD
Diarrhea
Hx of recent C.diff
Leukocytosis
ESRD on HD-MWF [facility]
left UE AVF
right chest wall catheter
Mild hypokalemia
Dysphagia on PEG
Hx of CVA with residual aphasia and paraplegia
Urine retention
NIDDM
Plan:
Continue dialysis per family request
Antibiotics per ID
soft BP, monitor
GI follows suspected to have ischemic bowel
hb decreasing, prn transfusion
poor prognosis
Persistent bacteremia Enterococcus/discussed with infectious disease will remove dialysis catheter after dialysis will also try using the left AV fistula the patient is contracted will make it difficult
I will consult placed

Total Time Spent with Patient (in minutes): 33
-
-
Date of Service: December 17, 2024
CC / HPI / ROS
-
Chief Complaint:
ESRD,
History of Present Illness:
ESRD chronic MWF
on antibiotics for ESBL enterococcal bacteremia
Anemia worsenign hb 7.3
BP soft, NPO now
WBC remain high 18.2k
Review of Systems:
No fevers
Nonverbal
Labs
-
Labs:
WBC 15.0 10^3/uL (4.8-10.8) H 12/17/24 05:58
RBC 2.86 10^6/uL (4.70-6.10) L 12/17/24 05:58
Hgb 7.6 g/dL (13.0-18.0) L 12/17/24 05:58
Hct 26.3 % (39.0-52.0) L 12/17/24 05:58
Plt Count 346 10^3/uL (130-400) 12/17/24 05:58
Sodium 134 mmol/L (135-145) L 12/17/24 05:58
Potassium 3.4 mmol/L (3.5-5.1) L 12/17/24 05:58
Chloride 103 mmol/L (98-107) 12/17/24 05:58
Carbon Dioxide 26 mmol/L (22-30) 12/17/24 05:58
BUN 27 mg/dl (9-20) H 12/17/24 05:58
Creatinine 2.0 mg/dL (0.7-1.3) H 12/17/24 05:58
eGFR 37.74 12/17/24 05:58
Glucose 73 mg/dl (70-99) 12/17/24 05:58
Calcium 8.5 mg/dl (8.4-10.2) 12/17/24 05:58
Albumin 2.2 g/dl (3.5-5.0) L 12/15/24 04:30
Physical Exam
-
Vital Signs:
Vital Signs
Temp Pulse Resp BP Pulse Ox
96.5 F L 73 21 151/72 97
12/17/24 07:15 12/17/24 10:00 12/17/24 10:00 12/17/24 10:00 12/17/24 10:00
Cardiovascular:: Regular rate and rhythm
Respiratory:: Bilateral: Coarse
Lung Excursion:: Normal
Abdomen:: Nontender and Soft
Bowel Sounds:: Normal
Extremity Edema:: None: Bilateral:
Wellington Catheter: Yes
--- NOTE | 2024-12-17 12:27 | CM ---
F/U: Hospitalist Notes state that tube feeds will begin now to see if the patient can tolerate it. It appears patient not not bleeding anymore from his rectum. PLAN: Return to [facility] when ready.
--- NOTE | 2024-12-17 14:08 | PHA.VAN.FU ---
Vancomycin Assessment / Plan
- Assessment
Hemodialysis Schedule: MWF
Last Hemodialysis performed: 12/15
WBC's are: Trending Down
Concomitant Antimicrobials: meropenem
- Assessment - Therapeutic Drug Monitoring
Random Level: pre-HD = 11.7
- Dosing Plan
Dosing by Level: Re-dose today (Vanc 1000mg)
Patient may require increased dosing on Fridays - tentatively considering Vanc 750mg and 1000mg Friday but will continue to trend levels
- Monitoring Plan
No level(s) ordered at this time: consider level prior to HD Friday
- Follow Up
Pharmacy will continue to follow.
Vancomycin Follow UP
- -
Patient Age: 59
Patient Sex: Male
Vancomycin Day #: 4
Indication: Gi / Intra-Abdominal
Requesting Provider: Dr. Olsen / Eddi
Pertinent Antimicrobial Allergies:
NKDA
Height / Weight:
Height 5 ft 9 in
Actual Weight 88.6 kg
Pertinent Past Medical History: ESRD - HD, paraplegia, BMI: 28
- Vital Signs / Lab Results
Temp Pulse Resp BP Pulse Ox
96.5 F L 76 14 155/78 100
12/17/24 07:15 12/17/24 13:15 12/17/24 13:15 12/17/24 13:15 12/17/24 13:15
Lab Results - Hematology
12/15/24 12/16/24 12/17/24
04:30 10:48 05:58
WBC 18.2 H 18.2 H 15.0 H
Lab Results - Chemistry
12/15/24 12/16/24 12/17/24
04:30 10:48 05:58
BUN 48 H 23 H 27 H
Creatinine 2.6 H 1.9 H 2.0 H
Estimated Creat Clear 31 42 40
Albumin 2.2 L
Microbiology Results
12/13/24 21:05 Blood Culture - Preliminary
Blood/Venous Enterococcus faecalis
Gram Stain - Preliminary
12/15/24 17:08 Blood Culture - Preliminary
Blood/Venous Enterococcus faecalis
Gram Stain - Preliminary
12/15/24 17:08 Blood Culture - Preliminary
Blood/Venous Positive culture in progress
Gram Stain - Preliminary
12/13/24 21:05 Blood Culture - Preliminary
Blood/Venous No Growth in 72 hours- Final report to follow
12/13/24 21:05 Salmonella/Shigella Culture - Final
Feces/Stool No Salmonella, Shigella, Aeromonas or Plesiomonas species
isolated.
Campylobacter Culture - Final
No Campylobacter species isolated.
Shiga Toxin Test - Final
No E. coli Shiga Toxin 1 or 2 detected.
12/14/24 15:01 MRSA Screen - Final
Nose Staph aureus MRSA
Therapeutic Drug Monitoring
Random Vancomycin 11.7 ug/ml 12/17/24 12:48
--- NOTE | 2024-12-17 15:47 | PTCARENOTE ---
HD completed, escorted to [facility]
[2024-12-17] MEDS: RETACRIT 10000 UNITS IV (15:48)
[2024-12-17] MEDS: FLUSH (NSS) 20 FLUSH INTRACATH (15:50)
--- NOTE | 2024-12-17 16:27 | W.PN.PAL2 ---
Today's Communication
-
patients unable to make it to the hospital yesterday. called today to discuss goals now that more testing has been completed. Understands he is sick, but was told his scans look better so hoping he can recover. Overall she states she is not
ready to let him go and that she does not want to change code status yet. states if his heart were to stop she would want to at least try but if theres nothing the team can do for him at that time, she would let him go. also wants to take him out of
nursing facility and take him home. team and cm aware.
Objective Data
-
Objective Data:
Vital Signs
Temp Pulse Resp BP Pulse Ox
97.9 F 79 14 156/71 100
12/17/24 15:40 12/17/24 15:57 12/17/24 15:57 12/17/24 15:57 12/17/24 15:57
Laboratory Results
12/17/24 05:58
12/17/24 05:58
PT 20.3 Sec (11.4-14.6) H 12/13/24 20:02
INR 1.72 12/13/24 20:02
APTT 49.0 Sec (23.4-35.0) H 12/13/24 20:02
Total Protein 5.4 g/dl (6.3-8.2) L D 12/15/24 04:30
Albumin 2.2 g/dl (3.5-5.0) L 12/15/24 04:30
Palliative Performance Scale
Palliative Performance Scale:
PPS Level Ambulation Activity & Evidence of Disease Self Care Intake Conscious Level
100% Full Normal Activity & Work; Full Intake Full
No Evidence of Disease
90% Full Normal Activity & Work; Full Normal Full
Some Evidence of Disease
80% Full Normal Activity with Effort Full Normal or Full
Some Evidence of Disease Reduced
70% Reduced Unable Normal Job/Work Full Normal or Full
Significant Disease Reduced
60% Reduced Unable Hobby/Housework Occasional Normal or Full or Confusion
Significant Disease Assistance Reduced
50% Mainly Sit/Lie Unable to do Any Work Considerable Normal or Full or Confusion
Extensive Disease Assistance Req'd Reduced
40% Mainly in Bed Unable to do Most Activity Mainly Assistance Normal or Full or Drowsy;
Extensive Disease Reduced +/- Confusion
30% Totally Bed Unable to do Any Activity Total Care Normal or Full or Drowsy;
Bound Extensive Disease Reduced +/- Confusion
20% Totally Bed Bound Unable to do Any Activity Total Care Minimal to Full or Drowsy;
Extensive Disease Sips +/- Confusion
10% Totally Bed Bound Unable to do Any Activity Total Care Mouth Care Drowsy or Coma;
Extensive Disease Only +/- Confusion
0%
PPS Score Level:
Physical Exam
-
General: Appears Chronically Ill
HEENT: Normocephalic
Skin: Warm
[2024-12-17] MEDS: STERILE WATER FOR INJECTION 20 ML IV (16:32)
[2024-12-17] MEDS: VANCOCIN 200 IV (16:33)
[2024-12-17] MEDS: MERREM 1000 MG IV (16:33)
[2024-12-17] MEDS: DAKIN'S SOLUTION 0.125% 1/4 STRENGTH 473 ML TOPICAL (20:15)
[2024-12-18] VITALS (12 sets, daily range): BP systolic 139–168; BP diastolic 27–80; BMI 28.5
--- NOTE | 2024-12-18 01:39 | PTCARENOTE ---
Pt appearing to get rest through out the night so far. Pt respirations even unlabored, spo2 97% spot check. Pt able to make needs known by shaking head yes or no to questions. Pt appears to be tolerating TF well. Pt now at 20ml/hr with 25ml flush.
Assessment care and vitals as charted.
--- NOTE | 2024-12-18 07:04 | PHA.VAN.FU ---
Vancomycin Assessment / Plan
- Assessment
Hemodialysis Schedule: MWF
Last Hemodialysis performed: 12/17
In the past 24 hrs, patient has been: Afebrile
Concomitant Antimicrobials: meropenem
- Dosing Plan
Dosing by Level: Hold off on dosing today
- Monitoring Plan
No level(s) ordered at this time: consider pre-HD level for Friday
- Follow Up
Pharmacy will continue to follow.
Vancomycin Follow UP
- -
Patient Age: 59
Patient Sex: Male
Vancomycin Day #: 5
Indication: Gi / Intra-Abdominal
Requesting Provider: Dr. Olsen / Eddi
Pertinent Antimicrobial Allergies:
NKDA
Height / Weight:
Height 5 ft 9 in
Actual Weight 87.6 kg
Pertinent Past Medical History: ESRD - HD, paraplegia, BMI: 28
- Vital Signs / Lab Results
Temp Pulse Resp BP Pulse Ox
97.8 F 83 16 151/69 97
12/18/24 03:37 12/18/24 06:33 12/18/24 06:33 12/18/24 06:33 12/17/24 22:31
Lab Results - Hematology
12/16/24 12/17/24
10:48 05:58
WBC 18.2 H 15.0 H
Lab Results - Chemistry
12/16/24 12/17/24
10:48 05:58
BUN 23 H 27 H
Creatinine 1.9 H 2.0 H
Estimated Creat Clear 42 40
Microbiology Results
12/17/24 05:58 Blood Culture - Preliminary
Blood/Venous No Growth in 24 hours- Final report to follow
12/13/24 21:05 Blood Culture - Preliminary
Blood/Venous No Growth in 4 days- Final report to follow
12/13/24 21:05 Blood Culture - Preliminary
Blood/Venous Enterococcus faecalis
Gram Stain - Preliminary
12/15/24 17:08 Blood Culture - Preliminary
Blood/Venous Enterococcus faecalis
Gram Stain - Preliminary
12/15/24 17:08 Blood Culture - Preliminary
Blood/Venous Positive culture in progress
Gram Stain - Preliminary
12/13/24 21:05 Salmonella/Shigella Culture - Final
Feces/Stool No Salmonella, Shigella, Aeromonas or Plesiomonas species
isolated.
Campylobacter Culture - Final
No Campylobacter species isolated.
Shiga Toxin Test - Final
No E. coli Shiga Toxin 1 or 2 detected.
Therapeutic Drug Monitoring
Random Vancomycin 11.7 ug/ml 12/17/24 12:48
--- NOTE | 2024-12-18 08:18 | W.PN.ID1 ---
Date of Service
Date of Service: December 18, 2024
Today's Communication
Continue current antibiotics. Follow pending blood cultures.
Assessment / Plan
# Ischemic bowel. Rectal bleeding resolved.
# Enterococcus faecalis bacteremia 1 of 2 sets, suspect 2* gut translocation
# s/p Hypotension from blood loss rectal bleeding
# Leukocytosis persists
# Progression of large Stage IV sacral decubitus, probably underlying osteo. No role for superintendent [employer] IV abx (futile).
# Chronic stage IV sacral decubitus wound, too high risk for diverting colostomy
# hx C. diff x 1 (august 2024)
# ESRD on HD via tunneled catheter
# CVA, paraplegia, bed bound, PEG on tube feed
# History of intra-abdominal abscess/necrotizing infection s/p exploratory laparotomy
PLAN:
- Repeat blood x2 12/15 also with e faecalis; BCx 12/17 NGTD
- Echo (12/17) : mild thickening of mitral valve leaflets. No clear evidence of vegetation
- consider line holiday, reached out to nephrology
- stool C. diff neg
- Continue IV vancomycin with dialysis for bacteremia, plan for 14 days through 12/27/24
When close to discharge, submit abx script to [facility] HD.
- Continue meropenem 1g IV q24 (start date 12/14/24) for intra-ab coverage and h/o MDRO. Plan for 5 to 7 d course
- Continue C. diff prophylaxis with enteric Vanco 125mg daily through 01/01/25.
- Trend wbc.
- Overall prognosis is poor to nil. Doubt any possibility of realistic recovery or return to a quality of life. Remains full code at this time.
- Continue C discussion with .
Conditions present on admission:
CVA and paraplegia
Dysphagia status post PEG
Atrial fibrillation on Eliquis
HTN
End-stage renal disease on hemodialysis Friday via right IJ PermCath
GIB/erosive gastritis
C. diff x 1 (08/2024)
Chronic sacral decubitus wounds, too high risk for diverting colostomy
Urinary retention with griffiths
Left upper extremity AV fistula placement
History of intra-abdominal abscess/necrotizing infection s/p exploratory laparotomy
Chief Complaint
-: Leukocytosis and Other
Subjective / Review of Systems
Patient seen and examined. No significant changes overnight.
Vital Signs / Physical Exam
Vital Signs
Vital Signs
Temp Pulse Resp BP Pulse Ox
97.8 F 83 16 151/69 97
12/18/24 03:37 12/18/24 06:33 12/18/24 06:33 12/18/24 06:33 12/17/24 22:31
Physical Exam
Constitutional: No Acute Distress, Comfortable and Chronically Ill
Cardiovascular: Regular Rate and S1/S2
Pulmonary: Clear, Symmetric and Non Labored
Gastrointestinal: Soft, Non Tender, Non Distended and Normal Bowel Sounds
Skin: Warm and Dry; Negative Rash or Jaundice
Wound: Other (Deep stage IV sacral wound dressed. Buttock wounds dressed.)
Lines: HD Cath (no erythema, warmth, drainage or tenderness)
Objective Data
Lab Data
PT 20.3 Sec (11.4-14.6) H 12/13/24 20:02
INR 1.72 12/13/24 20:02
APTT 49.0 Sec (23.4-35.0) H 12/13/24 20:02
Estimated Creat Clear 40 ml/min 12/17/24 05:58
Lactic Acid 1.4 mmol/L (0.7-2.0) 12/14/24 00:13
Total Bilirubin 0.9 mg/dl (0.2-1.3) 12/15/24 04:30
AST 19 U/L (17-59) 12/15/24 04:30
ALT 15 U/L (0-50) 12/15/24 04:30
Alkaline Phosphatase 98 U/L (38-126) 12/15/24 04:30
Most recent labs reviewed.
Micro Results:
12/17/24 05:58 Blood Culture - Preliminary
Blood/Venous No Growth in 24 hours- Final report to follow
12/13/24 21:05 Blood Culture - Preliminary
Blood/Venous No Growth in 4 days- Final report to follow
12/17/24 12:48 Blood Culture - Pending
Blood/Venous
12/13/24 21:05 Blood Culture - Preliminary
Blood/Venous Enterococcus faecalis
Gram Stain - Preliminary
12/15/24 17:08 Blood Culture - Preliminary
Blood/Venous Enterococcus faecalis
Gram Stain - Preliminary
12/15/24 17:08 Blood Culture - Preliminary
Blood/Venous Positive culture in progress
Gram Stain - Preliminary
12/13/24 21:05 Salmonella/Shigella Culture - Final
Feces/Stool No Salmonella, Shigella, Aeromonas or Plesiomonas species
isolated.
Campylobacter Culture - Final
No Campylobacter species isolated.
Shiga Toxin Test - Final
No E. coli Shiga Toxin 1 or 2 detected.
12/14/24 15:01 MRSA Screen - Final
Nose Staph aureus MRSA
12/13/24 21:05 C. difficile [facility] Antigen & Toxins - Final
Feces/Stool Negative for toxigenic C.difficile
Blood Culture Preliminary 12/13/24
Positive for Enterococcus faecalis.
Performed by [employer] methodology.
Organism 1 Enterococcus faecalis
1. Enterococcus faecalis
M.I.C. RX
--------- ---
Ampicillin <=2 S
Gentamicin Synergy Screen >500 R
Vancomycin 1 S
Imaging:
12/13/24 CT a/p: Diffuse bowel wall thickening and portal venous gas suggestive of possible ischemic bowel. No evidence for bowel perforation at this time. Thickening of the ascending colon likely inflammatory or ischemic in etiology; however,
recommend correlation with colonoscopy to rule out underlying mass. Bilateral lower lobe pneumonia, progressed. Redemonstration of large midline/right para midline sacral decubitus ulcer at the level of and extending to the sacrococcygeal junction,
progressed from prior with probable chronic erosion of the coccyx. No overt CT evidence for active osteomyelitis of the distal sacrum.
--- NOTE | 2024-12-18 09:10 | W.PN.HOSP.TC ---
Today's Communication/Plan
-
see plan
Assessment / Plan
Assessment / Plan
Gen: NAD, Awake and alert, NCTA
Eyes: EOMI, PERRLA, no scleral icterus.
Neck: supple.
CV: RRR, +S1/S2, no m/r/g.
Resp: continues to remain CTAB anteriorly, no rales, wheezes, or rhonchi.
Abd: +BS, soft, NT, ND
Skin: no LE edema
Neuro: remains CN 2-12 intact, unable to participate in neurological exam
Psych: Calm
12/17/24 05:58 Blood/Venous Blood Culture - Preliminary
No Growth in 24 hours- Final report to follow
12/13/24 21:05 Blood/Venous Blood Culture - Preliminary
No Growth in 4 days- Final report to follow
12/13/24 21:05 Blood/Venous Blood Culture - Preliminary
Enterococcus faecalis
12/13/24 21:05 Blood/Venous Gram Stain - Preliminary
12/15/24 17:08 Blood/Venous Blood Culture - Preliminary
Enterococcus faecalis
12/15/24 17:08 Blood/Venous Gram Stain - Preliminary
12/15/24 17:08 Blood/Venous Blood Culture - Preliminary
Positive culture in progress
12/15/24 17:08 Blood/Venous Gram Stain - Preliminary
12/13/24 21:05 Feces/Stool Salmonella/Shigella Culture - Final
No Salmonella, Shigella, Aeromonas or Plesiomonas species
isolated.
12/13/24 21:05 Feces/Stool Campylobacter Culture - Final
No Campylobacter species isolated.
12/13/24 21:05 Feces/Stool Shiga Toxin Test - Final
No E. coli Shiga Toxin 1 or 2 detected.
12/14/24 15:01 Nose MRSA Screen - Final
Staph aureus MRSA
12/13/24 21:05 Feces/Stool C. difficile [facility] Antigen & Toxins - Final
Negative for toxigenic C.difficile
CT A/P w/IV: Diffuse bowel wall thickening and portal venous gas suggestive of possible ischemic bowel. No evidence for bowel perforation at this time. Thickening of the ascending colon likely inflammatory or ischemic in etiology; however, recommend
correlation with colonoscopy to rule out underlying mass. Large sacral decubitus ulcer as described. Bilateral lower lobe pneumonia, progressed.
CT A/P with PO/IV: Redemonstration of extensive small bowel wall thickening and wall thickening of the ascending colon. There is also mild circumferential wall thickening of proximal to mid transverse colon. This is worrisome for ischemic bowel, as
noted previously. Improvement in portal venous gas. No evidence for pneumoperitoneum. Layering stones versus sludge in the gallbladder lumen. Small amount of perihepatic fluid. There is also moderate fluid in the lesser sac. Redemonstration of large
sacral decubitus ulcer. There is absence of the distal aspect of the sacrum and coccyx; this is without change. Anasarca. Kidneys do not excrete contrast material. This is consistent with known renal failure. Hepatomegaly. No focal hepatic lesion.
What likely represents pneumonia in the lower lobes noted. This is stable on the left, and worse on the right.
Acute blood loss anemia due to acute rectal bleeding:
-exacerbated by Eliquis which remains on hold (and I honestly do not see how Eliquis could safely be restarted)
-blood return with rectal tube placement in ER
-s/p 1U pRBCs
-trend Hb
-cont PPI
-GI saw in consult
Sepsis/bacteremia, POA:
-likely due to ischemic bowel (imaging above), less likely PNA
-s/p 30cc/kg NS bolus, BPs improved
-BCx with enterococcus
-cont Vanco (IV and PO as C diff Ag POS in the past) and Meropenem as per ID
-Surgery following
[facility] He is not recommending surgery and is recommending hospice.
-Quoted from Dr. Peters's progress note 12/15/24, 'Discussed GOC with . Rec DNR/DNI status. Discussed hospice briefly as well. His imaging shows improvement and he remains stable overall. His exam is limited but appears benign. Advised he is
high risk for surgery. Discussed concern for extensive bowel involvement, which if it does not improve, may make surgical management futile. She verbalized understanding.'
-[employer] message sent to Dr. Ramirez (GI) asking that GI remain involved in care for reinitiation of TFs. Will also c/s nutrition.
-IJ pulled with POS BCxs
-unable to use AVF for HD
-follow Repeat BCxs
Other problems:
Stage 4 sacral pressure ulcer: wound care following
Recent severe erosive gastritis (no H. pylori on recent path)
PAF: Holding Eliquis
ESRD on HD: renal following for HD (M/W/F). Currently on (AVF unable to be used), will need replacement HD cath on Friday.
h/o chronic Diarrhea
h/o C Diff carrier status (Ag POS)
Dysphagia: on PEG feeds [employer] which are on hold
h/o CVA with residual aphasia and paraplegia
Hepatosplenomegaly
Pt is critically ill with multiple, severe, active comorbidities. I discussed this at length with the pt's significant other over the phone 12/14 and 12/15 and recommended hospice. Palliative care following. Ultimately care is futile.
FULL/SCDs
Anticipated Discharge: > 48 hours
Subjective/Interval History
-
Date of Service: December 18, 2024
Currently nonverbal.
Objective Data
-
Labs:
Laboratory Results
12/18/24
06:00
WBC Pending
Hgb Pending
Hct Pending
Plt Count Pending
Sodium Pending
Potassium Pending
Chloride Pending
Carbon Dioxide Pending
BUN Pending
Creatinine Pending
Glucose Pending
Calcium Pending
Vital Signs:
Vital Signs
Temp Pulse Resp BP Pulse Ox
97.4 F 79 13 142/45 97
12/18/24 08:28 12/18/24 08:00 12/18/24 08:00 12/18/24 08:00 12/17/24 22:31
I&O
12/17/24 12/18/24 12/19/24
06:59 06:59 06:59
Intake Total 1880 / 1880 650 / 650
Output Total 500 / 500 350 / 350
Balance 1380 / 1380 300 / 300
[2024-12-18] MEDS: MYCOSTATIN ORAL SUSPENSION 10 ML PO ×2 (10:14→17:45)
[2024-12-18] MEDS: NSS (PRESERVATIVE FREE) 10 ML IV ×2 (10:14→20:52)
[2024-12-18] MEDS: PROTONIX IV 40 MG IV ×2 (10:14→20:52)
[2024-12-18] MEDS: CARAFATE SUSPENSION 1 GM TUBE (10:14)
[2024-12-18] MEDS: ZOLOFT 25 MG TUBE (10:15)
[2024-12-18] MEDS: ZYLOPRIM 100 MG TUBE (10:15)
[2024-12-18] MEDS: TYLENOL 650 MG TUBE (10:15)
[2024-12-18] MEDS: ULTRAM 50 MG TUBE ×2 (10:15→20:52)
[2024-12-18] MEDS: DESENEX/MITRAZOL/ZEASORB 1 APPLIC TOPICAL ×2 (10:16→20:53)
[2024-12-18] MEDS: DAKIN'S SOLUTION 0.125% 1/4 STRENGTH 30 ML TOPICAL (10:16)
[2024-12-18] MEDS: FIRVANQ 125 MG TUBE (10:20)
[2024-12-18 10:29] LABS: Hematocrit 27.1 % (39.0-52.0); Hemoglobin 8.4 g/dL (13.0-18.0); Mean Corp Hgb Conc. 31.0 g/dL (33.0-37.0); Mean Corpuscular Volume 85.0 fL (80.0-94.0); Platelet Count 335 10^3/uL (130-400); Red Cell Dist. Width 16.3 % (11.5-14.5)
--- NOTE | 2024-12-18 11:00 | W.PN.NEPH.PH ---
Today's Communication / Plan
-
Line holiday
Assessment/Plan
-
IMP:
Acute blood loss anemia 2/2 GIB on anemia of chronic disease 2/2 ESRD
Diarrhea
Hx of recent C.diff
Leukocytosis
ESRD on HD-MWF [facility]
left UE AVF
right chest wall catheter
Mild hypokalemia
Dysphagia on PEG
Hx of CVA with residual aphasia and paraplegia
Urine retention
NIDDM
Plan:
Continue dialysis per family request
Antibiotics per ID
soft BP, monitor
GI follows suspected to have ischemic bowel
hb decreasing, prn transfusion
poor prognosis
Persistent bacteremia Enterococcus/discussed with infectious disease will remove dialysis catheter = removed 12/17
Explanted dialysis Friday will need access temporary versus PermCath pending blood culture
Discussed with hospital medicine

-
-
Date of Service: December 18, 2024
CC / HPI / ROS
-
Chief Complaint:
ESRD,
History of Present Illness:
ESRD chronic MWF
on antibiotics for ESBL enterococcal bacteremia
Anemia worsenign hb 7.3
BP soft, NPO now
WBC remain high 18.2k
Review of Systems:
No fevers
Nonverbal
Labs
-
Labs:
WBC 12.0 10^3/uL (4.8-10.8) H 12/18/24 10:10
RBC 3.19 10^6/uL (4.70-6.10) L 12/18/24 10:10
Hgb 8.4 g/dL (13.0-18.0) L 12/18/24 10:10
Hct 27.1 % (39.0-52.0) L 12/18/24 10:10
Plt Count 335 10^3/uL (130-400) 12/18/24 10:10
eGFR 37.74 12/17/24 05:58
Albumin 2.2 g/dl (3.5-5.0) L 12/15/24 04:30
Physical Exam
-
Vital Signs:
Vital Signs
Temp Pulse Resp BP Pulse Ox
97.4 F 79 13 142/45 97
12/18/24 08:28 12/18/24 08:00 12/18/24 08:00 12/18/24 08:00 12/17/24 22:31
Cardiovascular:: Regular rate and rhythm
Respiratory:: Bilateral: Coarse
Lung Excursion:: Normal
Abdomen:: Nontender and Soft
Bowel Sounds:: Normal
Extremity Edema:: None: Bilateral:
[place] Catheter: Yes
[2024-12-18] MEDS: MERREM 1000 MG IV (17:44)
[2024-12-18] MEDS: STERILE WATER FOR INJECTION 20 ML IV (17:45)
[2024-12-18 18:33] LABS: Blood Urea Nitrogen 20 mg/dl (9-20); Calcium 8.1 mg/dl (8.4-10.2); Carbon Dioxide 30 mmol/L (22-30); Chloride 101 mmol/L (98-107); Estimated Creatinine Clearance 44 ml/min; Glucose 102 mg/dl (70-99); Potassium 3.3 mmol/L (3.5-5.1); Sodium 133 mmol/L (135-145); eGFR 42.82
[2024-12-18] MEDS: MYCOSTATIN ORAL SUSPENSION PO (20:51)
[2024-12-18] MEDS: CARAFATE SUSPENSION TUBE (20:52)
[2024-12-18] MEDS: KCL ELIXIR 40 MEQ TUBE (20:52)
[2024-12-18] MEDS: DAKIN'S SOLUTION 0.125% 1/4 STRENGTH 473 ML TOPICAL (20:53)
--- NOTE | 2024-12-18 21:41 | PTCARENOTE ---
Addendum entered by Salvador Monroe RN 12/19/24 06:19:
Restarted TF at 06:00 at 30 ml/hr with 25 ml/hr flush. Residual was 40 ml. Pt no longer c/o nausea.
Original Note:
Pt tube feed running at 30 ml/hr with 25 ml/hr flush. Residual was 220 mls at 21:00 and pt c/o nausea. Notified [employer]. TF on hold for 1 hour for residual >200.
[2024-12-19] VITALS (12 sets, daily range): BP systolic 126–147; BP diastolic 37–86; BMI 28.3
[2024-12-19 06:43] LABS: Hematocrit 26.3 % (39.0-52.0); Hemoglobin 8.2 g/dL (13.0-18.0); Mean Corp Hgb Conc. 31.2 g/dL (33.0-37.0); Mean Corpuscular Volume 87.7 fL (80.0-94.0); Platelet Count 356 10^3/uL (130-400); Red Cell Dist. Width 16.6 % (11.5-14.5)
[2024-12-19 07:12] LABS: Blood Urea Nitrogen 21 mg/dl (9-20); Calcium 8.4 mg/dl (8.4-10.2); Carbon Dioxide 29 mmol/L (22-30); Chloride 102 mmol/L (98-107); Estimated Creatinine Clearance 36 ml/min; Glucose 79 mg/dl (70-99); Potassium 3.8 mmol/L (3.5-5.1); Sodium 137 mmol/L (135-145); eGFR 33.66
[2024-12-19] MEDS: CARAFATE SUSPENSION 1 GM TUBE (07:48)
--- NOTE | 2024-12-19 07:50 | PHA.VAN.FU ---
Vancomycin Assessment / Plan
- Assessment
Hemodialysis Schedule: MWF
Last Hemodialysis performed: 12/17
WBC's are: Trending Up
In the past 24 hrs, patient has been: Afebrile
Concomitant Antimicrobials: meropenem, vancomycin PO
- Dosing Plan
Dosing by Level: Hold off on dosing today
- Monitoring Plan
Random Level: pre-HD 12/20
- Follow Up
Pharmacy will continue to follow.
Vancomycin Follow UP
- -
Patient Age: 59
Patient Sex: Male
Vancomycin Day #: 6
Indication: Gi / Intra-Abdominal
Requesting Provider: Dr. Olsen / Eddi
Pertinent Antimicrobial Allergies:
NKDA
Height / Weight:
Height 5 ft 9 in
Actual Weight 86.9 kg
Pertinent Past Medical History: ESRD - HD, paraplegia, BMI: 28
- Vital Signs / Lab Results
Temp Pulse Resp BP Pulse Ox
98.7 F 90 9 133/51 95
12/19/24 07:16 12/19/24 06:00 12/19/24 06:00 12/19/24 06:00 12/19/24 06:00
Lab Results - Hematology
12/16/24 12/17/24 12/18/24
10:48 05:58 10:10
WBC 18.2 H 15.0 H 12.0 H
12/19/24
06:11
WBC 13.3 H
Lab Results - Chemistry
12/16/24 12/17/24 12/18/24
10:48 05:58 17:57
BUN 23 H 27 H 20
Creatinine 1.9 H 2.0 H 1.8 H
Estimated Creat Clear 42 40 44
12/19/24
06:11
BUN 21 H
Creatinine 2.2 H
Estimated Creat Clear 36
Microbiology Results
12/17/24 12:48 Blood Culture - Preliminary
Blood/Venous Positive culture in progress
Gram Stain - Preliminary
12/17/24 05:58 Blood Culture - Preliminary
Blood/Venous No Growth in 48 hours- Final report to follow
12/13/24 21:05 Blood Culture - Final
Blood/Venous No Growth - Final Report
12/15/24 17:08 Blood Culture - Preliminary
Blood/Venous Enterococcus faecalis
Gram Stain - Preliminary
12/13/24 21:05 Blood Culture - Preliminary
Blood/Venous Enterococcus faecalis
Gram Stain - Preliminary
12/15/24 17:08 Blood Culture - Preliminary
Blood/Venous Enterococcus faecalis
Gram Stain - Preliminary
Therapeutic Drug Monitoring
Random Vancomycin 11.7 ug/ml 12/17/24 12:48
[2024-12-19] MEDS: TYLENOL 650 MG TUBE (07:51)
[2024-12-19] MEDS: ULTRAM 50 MG TUBE ×2 (07:51→20:46)
[2024-12-19] MEDS: MYCOSTATIN ORAL SUSPENSION 10 ML PO ×2 (07:51→16:10)
[2024-12-19] MEDS: ZOLOFT 25 MG TUBE (07:51)
[2024-12-19] MEDS: ZYLOPRIM 100 MG TUBE (07:52)
[2024-12-19] MEDS: PROTONIX IV 40 MG IV ×2 (07:52→20:46)
[2024-12-19] MEDS: NSS (PRESERVATIVE FREE) 10 ML IV ×2 (07:52→20:46)
[2024-12-19] MEDS: FIRVANQ 125 MG TUBE (07:53)
[2024-12-19] MEDS: DAKIN'S SOLUTION 0.125% 1/4 STRENGTH 473 ML TOPICAL ×2 (07:53→20:47)
[2024-12-19] MEDS: DESENEX/MITRAZOL/ZEASORB 1 APPLIC TOPICAL ×2 (07:53→20:47)
--- NOTE | 2024-12-19 09:08 | W.PN.HOSP.TC ---
Today's Communication/Plan
-
see plan
Assessment / Plan
Assessment / Plan
Gen: remains NAD, Awake and alert, NCTA
Eyes: EOMI, PERRLA, no scleral icterus.
Neck: supple.
CV: RRR, +S1/S2, no m/r/g.
Resp: CTAB anteriorly, no rales, wheezes, or rhonchi.
Abd: +BS, soft, NT, ND
Skin: no LE edema
Neuro: continues to remain CN 2-12 intact, unable to participate in neurological exam
Psych: Calm
12/17/24 12:48 Blood/Venous Blood Culture - Preliminary
Positive culture in progress
12/17/24 12:48 Blood/Venous Gram Stain - Preliminary
12/17/24 05:58 Blood/Venous Blood Culture - Preliminary
No Growth in 48 hours- Final report to follow
12/13/24 21:05 Blood/Venous Blood Culture - Final
No Growth - Final Report
12/15/24 17:08 Blood/Venous Blood Culture - Preliminary
Enterococcus faecalis
12/15/24 17:08 Blood/Venous Gram Stain - Preliminary
12/13/24 21:05 Blood/Venous Blood Culture - Preliminary
Enterococcus faecalis
12/13/24 21:05 Blood/Venous Gram Stain - Preliminary
12/15/24 17:08 Blood/Venous Blood Culture - Preliminary
Enterococcus faecalis
12/15/24 17:08 Blood/Venous Gram Stain - Preliminary
12/13/24 21:05 Feces/Stool Salmonella/Shigella Culture - Final
No Salmonella, Shigella, Aeromonas or Plesiomonas species
isolated.
12/13/24 21:05 Feces/Stool Campylobacter Culture - Final
No Campylobacter species isolated.
12/13/24 21:05 Feces/Stool Shiga Toxin Test - Final
No E. coli Shiga Toxin 1 or 2 detected.
12/14/24 15:01 Nose MRSA Screen - Final
Staph aureus MRSA
12/13/24 21:05 Feces/Stool C. difficile GDH Antigen & Toxins - Final
Negative for toxigenic C.difficile
CT A/P w/IV: Diffuse bowel wall thickening and portal venous gas suggestive of possible ischemic bowel. No evidence for bowel perforation at this time. Thickening of the ascending colon likely inflammatory or ischemic in etiology; however, recommend
correlation with colonoscopy to rule out underlying mass. Large sacral decubitus ulcer as described. Bilateral lower lobe pneumonia, progressed.
CT A/P with PO/IV: Redemonstration of extensive small bowel wall thickening and wall thickening of the ascending colon. There is also mild circumferential wall thickening of proximal to mid transverse colon. This is worrisome for ischemic bowel, as
noted previously. Improvement in portal venous gas. No evidence for pneumoperitoneum. Layering stones versus sludge in the gallbladder lumen. Small amount of perihepatic fluid. There is also moderate fluid in the lesser sac. Redemonstration of large
sacral decubitus ulcer. There is absence of the distal aspect of the sacrum and coccyx; this is without change. Anasarca. Kidneys do not excrete contrast material. This is consistent with known renal failure. Hepatomegaly. No focal hepatic lesion.
What likely represents pneumonia in the lower lobes noted. This is stable on the left, and worse on the right.
Sepsis/bacteremia, POA:
-likely due to ischemic bowel (imaging above), less likely PNA
-s/p 30cc/kg NS bolus, BPs improved
-BCx with enterococcus
-cont Vanco (IV and PO as C diff Ag POS in the past) and Meropenem as per ID
-Surgery saw in c/s
-case discussed with Dr. Peters over [employer] on 12/15/24. He is not recommending surgery and is recommending hospice.
-Quoted from Dr. Peters's progress note 12/15/24, 'Discussed GOC with . Rec DNR/DNI status. Discussed hospice briefly as well. His imaging shows improvement and he remains stable overall. His exam is limited but appears benign. Advised he is
high risk for surgery. Discussed concern for extensive bowel involvement, which if it does not improve, may make surgical management futile. She verbalized understanding.'
-TFs resumed
-IJ pulled with POS BCxs
-unable to use AVF for HD, will need replacement HD cath on Friday
-follow serial BCxs
Acute blood loss anemia due to acute rectal bleeding:
-exacerbated by Eliquis which remains on hold (and I honestly do not see how Eliquis could safely be restarted)
-blood return with rectal tube placement in ER
-s/p 1U pRBCs
-trend Hb
-cont PPI
-GI saw in consult
Other problems:
Stage 4 sacral pressure ulcer: wound care following
Recent severe erosive gastritis (no H. pylori on recent path)
PAF: Holding Eliquis
ESRD on HD: renal following for HD (M/W/F). Currently on line holiday (AVF unable to be used), will need replacement HD cath on Friday.
h/o chronic Diarrhea
h/o C Diff carrier status (Ag POS)
Dysphagia: on PEG feeds [employer] which are on hold
h/o CVA with residual aphasia and paraplegia
Hepatosplenomegaly
Pt is critically ill with multiple, severe, active comorbidities. I discussed this at length with the pt's significant other over the phone 12/14 and 12/15 and recommended hospice. Palliative care following. Ultimately care is futile. At this time
pt's significant other continues to want restorative/aggressive care.
FULL Code
DVT proph: Pt has been on SCDs. With stability of Hb will start Heparin SC and monitor closely for recurrent bleeding.
Anticipated Discharge: > 48 hours
Subjective/Interval History
-
Date of Service: December 19, 2024
Pt nonverbal.
Objective Data
-
Labs:
Laboratory Results
12/19/24
06:11
WBC 13.3 H
Hgb 8.2 L
Hct 26.3 L
Plt Count 356
Sodium 137
Potassium 3.8
Chloride 102
Carbon Dioxide 29
BUN 21 H
Creatinine 2.2 H
Glucose 79
Calcium 8.4
Vital Signs:
Vital Signs
Temp Pulse Resp BP Pulse Ox
98.7 F 90 9 133/51 95
12/19/24 07:16 12/19/24 06:00 12/19/24 06:00 12/19/24 06:00 12/19/24 06:00
I&O
12/18/24 12/19/24 12/20/24
06:59 06:59 06:59
Intake Total 650 / 650 660 / 660
Output Total 350 / 350 50 / 50
Balance 300 / 300 610 / 610
--- NOTE | 2024-12-19 09:22 | W.PN.ID1 ---
Date of Service
Date of Service: December 19, 2024
Today's Communication
Continue antibiotics.
Assessment / Plan
# Ischemic bowel. Rectal bleeding resolved.
# Enterococcus faecalis bacteremia 12/13, 12/15, 12/17
# s/p Hypotension from blood loss rectal bleeding
# Leukocytosis persists
# Progression of large Stage IV sacral decubitus, probably underlying osteo. No role for senior living IV abx (futile).
# Chronic stage IV sacral decubitus wound, too high risk for diverting colostomy
# hx C. diff x 1 (august 2024)
# ESRD on HD via tunneled catheter
# CVA, paraplegia, bed bound, PEG on tube feed
# History of intra-abdominal abscess/necrotizing infection s/p exploratory laparotomy
PLAN:
- Repeat blood x2 12/15 also with e faecalis; BCx 12/17 NGTD
- Echo (12/17) : mild thickening of mitral valve leaflets. No clear evidence of vegetation
- HD line removed. Patient for line holiday
- stool C. diff neg
- Continue IV vancomycin. Given ongoing bacteremia, may require more prolonged course.
- Repeat blood culture today
- Continue meropenem 1g IV q24 (d#6)) for intra-ab coverage and h/o MDRO. Plan 7 day course
- Continue C. diff prophylaxis with enteric Vanco 125mg daily through 01/01/25.
- Trend wbc.
- Overall prognosis is poor to nil. Doubt any possibility of realistic recovery or return to a quality of life. Remains full code at this time.
- Continue GOC discussion with .
Conditions present on admission:
CVA and paraplegia
Dysphagia status post PEG
Atrial fibrillation on Eliquis
HTN
End-stage renal disease on hemodialysis Friday via right IJ PermCath
GIB/erosive gastritis
C. diff x 1 (08/2024)
Chronic sacral decubitus wounds, too high risk for diverting colostomy
Urinary retention with griffiths
Left upper extremity AV fistula placement
History of intra-abdominal abscess/necrotizing infection s/p exploratory laparotomy
Chief Complaint
-: Leukocytosis and Other
Subjective / Review of Systems
Review of Systems: No Fever
Vital Signs / Physical Exam
Vital Signs
Vital Signs
Temp Pulse Resp BP Pulse Ox
98.7 F 90 9 133/51 95
12/19/24 07:16 12/19/24 06:00 12/19/24 06:00 12/19/24 06:00 12/19/24 06:00
Physical Exam
Constitutional: No Acute Distress, Comfortable and Chronically Ill
Cardiovascular: Regular Rate and S1/S2
Pulmonary: Clear, Symmetric and Non Labored
Gastrointestinal: Soft, Non Tender, Non Distended and Normal Bowel Sounds
Skin: Warm and Dry; Negative Rash or Jaundice
Wound: Other (Deep stage IV sacral wound dressed. Buttock wounds dressed.)
Neurological: Other (Eyes open. Minimal tracking.)
Psychological: Calm
Objective Data
Lab Data
Lab Results
12/19/24 06:11
12/19/24 06:11
PT 20.3 Sec (11.4-14.6) H 12/13/24 20:02
INR 1.72 12/13/24 20:02
APTT 49.0 Sec (23.4-35.0) H 12/13/24 20:02
Estimated Creat Clear 36 ml/min 12/19/24 06:11
Lactic Acid 1.4 mmol/L (0.7-2.0) 12/14/24 00:13
Total Bilirubin 0.9 mg/dl (0.2-1.3) 12/15/24 04:30
AST 19 U/L (17-59) 12/15/24 04:30
ALT 15 U/L (0-50) 12/15/24 04:30
Alkaline Phosphatase 98 U/L (38-126) 12/15/24 04:30
Most recent labs reviewed.
Micro Results:
12/17/24 12:48 Blood Culture - Preliminary
Blood/Venous Positive culture in progress
Gram Stain - Preliminary
12/17/24 05:58 Blood Culture - Preliminary
Blood/Venous No Growth in 48 hours- Final report to follow
12/13/24 21:05 Blood Culture - Final
Blood/Venous No Growth - Final Report
12/18/24 10:11 Blood Culture - Pending
Blood/Venous
12/15/24 17:08 Blood Culture - Preliminary
Blood/Venous Enterococcus faecalis
Gram Stain - Preliminary
12/13/24 21:05 Blood Culture - Preliminary
Blood/Venous Enterococcus faecalis
Gram Stain - Preliminary
12/15/24 17:08 Blood Culture - Preliminary
Blood/Venous Enterococcus faecalis
Gram Stain - Preliminary
12/13/24 21:05 Salmonella/Shigella Culture - Final
Feces/Stool No Salmonella, Shigella, Aeromonas or Plesiomonas species
isolated.
Campylobacter Culture - Final
No Campylobacter species isolated.
Shiga Toxin Test - Final
No E. coli Shiga Toxin 1 or 2 detected.
12/14/24 15:01 MRSA Screen - Final
Nose Staph aureus MRSA
12/13/24 21:05 C. difficile GDH Antigen & Toxins - Final
Feces/Stool Negative for toxigenic C.difficile
Blood Culture Preliminary 12/13/24
Positive for Enterococcus faecalis.
Performed by [employer] methodology.
Organism 1 Enterococcus faecalis
1. Enterococcus faecalis
M.I.C. RX
--------- ---
Ampicillin <=2 S
Gentamicin Synergy Screen >500 R
Vancomycin 1 S
Imaging:
12/13/24 CT a/p: Diffuse bowel wall thickening and portal venous gas suggestive of possible ischemic bowel. No evidence for bowel perforation at this time. Thickening of the ascending colon likely inflammatory or ischemic in etiology; however,
recommend correlation with colonoscopy to rule out underlying mass. Bilateral lower lobe pneumonia, progressed. Redemonstration of large midline/right para midline sacral decubitus ulcer at the level of and extending to the sacrococcygeal junction,
progressed from prior with probable chronic erosion of the coccyx. No overt CT evidence for active osteomyelitis of the distal sacrum.
Care Review
Plan reviewed with: Physician (Hospital)
[2024-12-19] MEDS: HEPARIN 5000 UNITS SC ×2 (11:50→20:46)
--- NOTE | 2024-12-19 15:43 | W.PN.NEPH.PH ---
Today's Communication / Plan
-
Temporary dialysis catheter tomorrow ordered
Assessment/Plan
-
IMP:
Acute blood loss anemia 2/2 GIB on anemia of chronic disease 2/2 ESRD
Diarrhea
Hx of recent C.diff
Leukocytosis
ESRD on HD-MWF [facility]
left UE AVF
right chest wall catheter
Mild hypokalemia
Dysphagia on PEG
Hx of CVA with residual aphasia and paraplegia
Urine retention
NIDDM
Plan:
Continue dialysis per family request
Antibiotics per ID
soft BP, monitor
GI follows suspected to have ischemic bowel
hb decreasing, prn transfusion
poor prognosis
Persistent bacteremia Enterococcus/discussed with infectious disease will remove dialysis catheter = removed 12/17
Surveillance cultures pending.
Ordered temporary dialysis catheter for Friday until we are sure cultures have cleared

-
-
Date of Service: December 19, 2024
CC / HPI / ROS
-
Chief Complaint:
ESRD,
History of Present Illness:
ESRD chronic MWF
on antibiotics for ESBL enterococcal bacteremia
Anemia worsenign hb 7.3
BP soft, NPO now
WBC remain high 18.2k
Review of Systems:
No fevers
Nonverbal
Labs
-
Labs:
WBC 13.3 10^3/uL (4.8-10.8) H 12/19/24 06:11
RBC 3.00 10^6/uL (4.70-6.10) L 12/19/24 06:11
Hgb 8.2 g/dL (13.0-18.0) L 12/19/24 06:11
Hct 26.3 % (39.0-52.0) L 12/19/24 06:11
Plt Count 356 10^3/uL (130-400) 12/19/24 06:11
Sodium 137 mmol/L (135-145) 12/19/24 06:11
Potassium 3.8 mmol/L (3.5-5.1) 12/19/24 06:11
Chloride 102 mmol/L (98-107) 12/19/24 06:11
Carbon Dioxide 29 mmol/L (22-30) 12/19/24 06:11
BUN 21 mg/dl (9-20) H 12/19/24 06:11
Creatinine 2.2 mg/dL (0.7-1.3) H 12/19/24 06:11
eGFR 33.66 12/19/24 06:11
Glucose 79 mg/dl (70-99) 12/19/24 06:11
Calcium 8.4 mg/dl (8.4-10.2) 12/19/24 06:11
Albumin 2.2 g/dl (3.5-5.0) L 12/15/24 04:30
Physical Exam
-
Vital Signs:
Vital Signs
Temp Pulse Resp BP Pulse Ox
98.7 F 77 13 137/45 99
12/19/24 07:16 12/19/24 12:00 12/19/24 12:00 12/19/24 12:00 12/19/24 12:00
Cardiovascular:: Regular rate and rhythm
Respiratory:: Bilateral: Coarse
Lung Excursion:: Normal
Abdomen:: Nontender and Soft
Bowel Sounds:: Normal
Extremity Edema:: None: Bilateral:
[place] Catheter: Yes
[2024-12-19] MEDS: STERILE WATER FOR INJECTION 20 ML IV (16:10)
[2024-12-19] MEDS: MERREM 1000 MG IV (16:10)
[2024-12-19] MEDS: CARAFATE SUSPENSION TUBE (20:47)
[2024-12-19] MEDS: MYCOSTATIN ORAL SUSPENSION PO (21:53)
[2024-12-20] VITALS (28 sets, daily range): BP systolic 84–159; BP diastolic 50–138; BMI 28.3
[2024-12-20 03:56] LABS: Hematocrit 26.3 % (39.0-52.0); Hemoglobin 8.0 g/dL (13.0-18.0); Mean Corp Hgb Conc. 30.4 g/dL (33.0-37.0); Mean Corpuscular Volume 87.7 fL (80.0-94.0); Platelet Count 345 10^3/uL (130-400); Red Cell Dist. Width 16.9 % (11.5-14.5)
--- NOTE | 2024-12-20 04:05 | PTCARENOTE ---
Received pt at change of shift. Oriented only to self. Nods/shakes head but not always appropriate to the situation. TF running at 40 ml/hr. hygiene care provided. Wound care completed. FMS remains intact. No events noted overnight.
[2024-12-20 04:15] LABS: Blood Urea Nitrogen 27 mg/dl (9-20); Calcium 8.4 mg/dl (8.4-10.2); Carbon Dioxide 31 mmol/L (22-30); Chloride 102 mmol/L (98-107); Estimated Creatinine Clearance 32 ml/min; Glucose 106 mg/dl (70-99); Potassium 3.6 mmol/L (3.5-5.1); Sodium 135 mmol/L (135-145); eGFR 28.87
--- NOTE | 2024-12-20 07:44 | W.PN.HOSP.TC ---
Today's Communication/Plan
-
See plan
Assessment / Plan
Assessment / Plan
Physical Exam
Gen: Not in acute distress
HEENT: Normocephalic
Neck: Supple
CV: RRR, +S1/S2
Resp: CTAB anteriorly
Abd: +BS, soft, NT, ND
Skin: Warm. Dry. no LE edema
Neuro: continues to remain CN 2-12 intact, unable to participate in neurological exam
Psych: Calm

12/17/24 12:48 Blood/Venous Blood Culture - Preliminary
Positive culture in progress
12/17/24 12:48 Blood/Venous Gram Stain - Preliminary
12/17/24 05:58 Blood/Venous Blood Culture - Preliminary
No Growth in 48 hours- Final report to follow
12/13/24 21:05 Blood/Venous Blood Culture - Final
No Growth - Final Report
12/15/24 17:08 Blood/Venous Blood Culture - Preliminary
Enterococcus faecalis
12/15/24 17:08 Blood/Venous Gram Stain - Preliminary
12/13/24 21:05 Blood/Venous Blood Culture - Preliminary
Enterococcus faecalis
12/13/24 21:05 Blood/Venous Gram Stain - Preliminary
12/15/24 17:08 Blood/Venous Blood Culture - Preliminary
Enterococcus faecalis
12/15/24 17:08 Blood/Venous Gram Stain - Preliminary
12/13/24 21:05 Feces/Stool Salmonella/Shigella Culture - Final
No Salmonella, Shigella, Aeromonas or Plesiomonas species
isolated.
12/13/24 21:05 Feces/Stool Campylobacter Culture - Final
No Campylobacter species isolated.
12/13/24 21:05 Feces/Stool Shiga Toxin Test - Final
No E. coli Shiga Toxin 1 or 2 detected.
12/14/24 15:01 Nose MRSA Screen - Final
Staph aureus MRSA
12/13/24 21:05 Feces/Stool C. difficile GDH Antigen & Toxins - Final
Negative for toxigenic C.difficile
CT A/P w/IV: Diffuse bowel wall thickening and portal venous gas suggestive of possible ischemic bowel. No evidence for bowel perforation at this time. Thickening of the ascending colon likely inflammatory or ischemic in etiology; however, recommend
correlation with colonoscopy to rule out underlying mass. Large sacral decubitus ulcer as described. Bilateral lower lobe pneumonia, progressed.
CT A/P with PO/IV: Redemonstration of extensive small bowel wall thickening and wall thickening of the ascending colon. There is also mild circumferential wall thickening of proximal to mid transverse colon. This is worrisome for ischemic bowel, as
noted previously. Improvement in portal venous gas. No evidence for pneumoperitoneum. Layering stones versus sludge in the gallbladder lumen. Small amount of perihepatic fluid. There is also moderate fluid in the lesser sac. Redemonstration of large
sacral decubitus ulcer. There is absence of the distal aspect of the sacrum and coccyx; this is without change. Anasarca. Kidneys do not excrete contrast material. This is consistent with known renal failure. Hepatomegaly. No focal hepatic lesion.
What likely represents pneumonia in the lower lobes noted. This is stable on the left, and worse on the right.

Assessment/Plan
Sepsis/bacteremia, POA
-likely due to ischemic bowel (imaging above), less likely PNA
-s/p 30cc/kg NS bolus, BPs improved
-Blood cultures with enterococcus
-Continue Vanco (IV and PO as C diff Ag POS in the past) -- IV Vancomycin to be given post HD plan 6 week course 12/13/24-01/23/25 -- and Meropenem as per ID (final day of Meropenem is 12/20/24)
-Surgery saw in c/s
-case discussed with Dr. Peters over [employer] on 12/15/24. He is not recommending surgery and is recommending hospice.
-Quoted from Dr. Peters's progress note 12/15/24, 'Discussed GOC with . Rec DNR/DNI status. Discussed hospice briefly as well. His imaging shows improvement and he remains stable overall. His exam is limited but appears benign. Advised he is
high risk for surgery. Discussed concern for extensive bowel involvement, which if it does not improve, may make surgical management futile. She verbalized understanding.'
-TFs resumed
-IJ pulled with POS BCxs
-unable to use AVF for HD, will need temporary replacement HD cath on 12/20/24
-follow serial BCxs
Acute blood loss anemia due to acute rectal bleeding
-exacerbated by Eliquis which remains on hold (and I honestly do not see how Eliquis could safely be restarted)
-blood return with rectal tube placement in ER
-s/p 1U pRBCs
-trend Hb
-cont PPI
-GI saw in consult
Other problems:
Stage 4 sacral pressure ulcer: wound care following
Recent severe erosive gastritis (no H. pylori on recent path)
PAF: Holding Eliquis
ESRD on HD: renal following for HD (M/W/F). Currently on line holiday (AVF unable to be used), will need replacement HD cath on Friday.
h/o chronic Diarrhea
h/o C Diff carrier status (Ag POS)
Dysphagia: on PEG feeds [employer]
h/o CVA with residual aphasia and paraplegia (was cared for [facility])
Bedbound status
Hepatosplenomegaly
Pt is critically ill with multiple, severe, active comorbidities. I discussed this at length with the pt's significant other over the phone 12/14 and 12/15 and recommended hospice. Palliative care following. Ultimately care is futile. At this time
pt's significant other continues to want restorative/aggressive care.
FULL Code
DVT proph: Pt has been on SCDs. With stability of Hgb, Heparin SC started and monitored closely for recurrent bleeding.
Anticipated Discharge: > 48 hours
Subjective/Interval History
-
Date of Service: December 20, 2024
Patient was seen and examined. No new significant events or complaints.
Objective Data
-
Labs:
Laboratory Results
12/20/24
03:37
WBC 11.7 H
Hgb 8.0 L
Hct 26.3 L
Plt Count 345
Sodium 135
Potassium 3.6
Chloride 102
Carbon Dioxide 31 H
BUN 27 H
Creatinine 2.5 H
Glucose 106 H
Calcium 8.4
Vital Signs:
Vital Signs
Temp Pulse Resp BP Pulse Ox
97.3 F 77 13 151/71 99
12/20/24 04:07 12/20/24 06:00 12/20/24 06:00 12/20/24 06:00 12/20/24 06:00
I&O
12/19/24 12/20/24 12/21/24
06:59 06:59 06:59
Intake Total 660 / 660 965 / 965
Output Total 50 / 50 125 / 125
Balance 610 / 610 840 / 840
--- NOTE | 2024-12-20 07:52 | PHA.VAN.FU ---
Vancomycin Assessment / Plan
- Assessment
Hemodialysis Schedule: MWF
Last Hemodialysis performed: Friday, 12/20
WBC's are: Trending Down
In the past 24 hrs, patient has been: Afebrile
Concomitant Antimicrobials: Meropenem 1 gram IV q24h
- Assessment - Therapeutic Drug Monitoring
Random Level: Pre-HD level: 16.6 (12/20 at 3:37 AM)
- Dosing Plan
Dosing by Level: Re-dose today (Vancomycin 750 mg)
- Follow Up
Pharmacy will continue to follow.
Vancomycin Follow UP
- -
Patient Age: 59
Patient Sex: Male
Vancomycin Day #: 7
Indication: Gi / Intra-Abdominal
Requesting Provider: Dr. Olsen / Eddi
Pertinent Antimicrobial Allergies:
NKDA
Height / Weight:
Height 5 ft 9 in
Actual Weight 87 kg
Pertinent Past Medical History: ESRD - HD, paraplegia, BMI: 28
- Vital Signs / Lab Results
Temp Pulse Resp BP Pulse Ox
97.3 F 77 13 151/71 99
12/20/24 04:07 12/20/24 06:00 12/20/24 06:00 12/20/24 06:00 12/20/24 06:00
Lab Results - Hematology
12/18/24 12/19/24 12/20/24
10:10 06:11 03:37
WBC 12.0 H 13.3 H 11.7 H
Lab Results - Chemistry
12/18/24 12/19/24 12/20/24
17:57 06:11 03:37
BUN 20 21 H 27 H
Creatinine 1.8 H 2.2 H 2.5 H
Estimated Creat Clear 44 36 32
Microbiology Results
12/17/24 05:58 Blood Culture - Preliminary
Blood/Venous No Growth in 72 hours- Final report to follow
12/17/24 12:48 Blood Culture - Preliminary
Blood/Venous Enterococcus faecalis
Gram Stain - Preliminary
12/18/24 10:11 Blood Culture - Preliminary
Blood/Venous No Growth in 24 hours- Final report to follow
12/13/24 21:05 Blood Culture - Final
Blood/Venous No Growth - Final Report
12/15/24 17:08 Blood Culture - Preliminary
Blood/Venous Enterococcus faecalis
Gram Stain - Preliminary
Therapeutic Drug Monitoring
Random Vancomycin 16.6 ug/ml 12/20/24 03:37
[2024-12-20] MEDS: CARAFATE SUSPENSION 1 GM TUBE (08:30)
[2024-12-20] MEDS: MYCOSTATIN ORAL SUSPENSION 10 ML PO ×2 (08:30→20:22)
[2024-12-20] MEDS: HEPARIN 5000 UNITS SC ×2 (08:30→20:22)
[2024-12-20] MEDS: FIRVANQ 125 MG TUBE (08:31)
[2024-12-20] MEDS: PROTONIX IV 40 MG IV ×2 (08:31→20:21)
[2024-12-20] MEDS: NSS (PRESERVATIVE FREE) 10 ML IV ×2 (08:31→20:21)
[2024-12-20] MEDS: ZYLOPRIM 100 MG TUBE (08:32)
[2024-12-20] MEDS: DAKIN'S SOLUTION 0.125% 1/4 STRENGTH 473 ML TOPICAL ×2 (08:32→20:21)
[2024-12-20] MEDS: ULTRAM 50 MG TUBE ×2 (08:32→20:21)
[2024-12-20] MEDS: TYLENOL 650 MG TUBE (08:32)
[2024-12-20] MEDS: ZOLOFT 25 MG TUBE (08:32)
[2024-12-20] MEDS: DESENEX/MITRAZOL/ZEASORB 1 APPLIC TOPICAL ×2 (08:33→20:21)
--- NOTE | 2024-12-20 09:16 | W.PN.ID1 ---
Date of Service
Date of Service: December 20, 2024
Today's Communication
Continue IV vancomycin to be given post HD plan 6 week course 12/13-01/23
Assessment / Plan
# Ischemic bowel. Rectal bleeding resolved.
# Enterococcus faecalis bacteremia 12/13, 12/15, 12/17
# s/p Hypotension from blood loss rectal bleeding
# Leukocytosis persists
# Progression of large Stage IV sacral decubitus, probably underlying osteo. No role for [employer] IV abx (futile).
# Chronic stage IV sacral decubitus wound, too high risk for diverting colostomy
# hx C. diff x 1 (august 2024)
# ESRD on HD via tunneled catheter
# CVA, paraplegia, bed bound, PEG on tube feed
# History of intra-abdominal abscess/necrotizing infection s/p exploratory laparotomy
PLAN:
- Repeat blood x2 12/15 also with e faecalis; BCx 12/18 & 12/19 NGTD
- Echo (12/17) : mild thickening of mitral valve leaflets. No clear evidence of vegetation
- HD line removed. Patient for line holiday, has a fistula which may be used instead of the line
- stool C. diff neg
- Continue IV vancomycin to be given post HD plan 6 week course 12/13-01/23
- Repeat blood culture today
- Continue meropenem 1g IV q24 (d#7)) for intra-ab coverage and h/o MDRO. Plan 7 day course; today is the final day
- Continue C. diff prophylaxis with enteric Vanco 125mg daily through 01/01/25.
- Trend wbc.
- Overall prognosis is poor to nil. Doubt any possibility of realistic recovery or return to a quality of life. Remains full code at this time.
- Continue GOC discussion with .
Conditions present on admission:
CVA and paraplegia
Dysphagia status post PEG
Atrial fibrillation on Eliquis
HTN
End-stage renal disease on hemodialysis Friday via right IJ PermCath
GIB/erosive gastritis
C. diff x 1 (08/2024)
Chronic sacral decubitus wounds, too high risk for diverting colostomy
Urinary retention with griffiths
Left upper extremity AV fistula placement
History of intra-abdominal abscess/necrotizing infection s/p exploratory laparotomy
Chief Complaint
-: Leukocytosis and Other
Subjective / Review of Systems
afebrile
bp stable
Vital Signs / Physical Exam
Vital Signs
Vital Signs
Temp Pulse Resp BP Pulse Ox
97.3 F 77 13 151/71 99
12/20/24 04:07 12/20/24 06:00 12/20/24 06:00 12/20/24 06:00 12/20/24 06:00
Physical Exam
Constitutional: No Acute Distress
Cardiovascular: Regular Rate and S1/S2; Negative Murmur or Rub
Pulmonary: Clear and Symmetric; Negative Wheezes or Rales
Gastrointestinal: Soft, Non Tender, Non Distended and Normal Bowel Sounds
Skin: Warm and Dry; Negative Rash or Jaundice
Objective Data
Lab Data
Lab Results
12/20/24 03:37
12/20/24 03:37
PT 20.3 Sec (11.4-14.6) H 12/13/24 20:02
INR 1.72 12/13/24 20:02
APTT 49.0 Sec (23.4-35.0) H 12/13/24 20:02
Estimated Creat Clear 32 ml/min 12/20/24 03:37
Lactic Acid 1.4 mmol/L (0.7-2.0) 12/14/24 00:13
Total Bilirubin 0.9 mg/dl (0.2-1.3) 12/15/24 04:30
AST 19 U/L (17-59) 12/15/24 04:30
ALT 15 U/L (0-50) 12/15/24 04:30
Alkaline Phosphatase 98 U/L (38-126) 12/15/24 04:30
Most recent labs reviewed.
Micro Results:
12/17/24 05:58 Blood Culture - Preliminary
Blood/Venous No Growth in 72 hours- Final report to follow
12/17/24 12:48 Blood Culture - Preliminary
Blood/Venous Enterococcus faecalis
Gram Stain - Preliminary
12/19/24 10:24 Blood Culture - Pending
Blood/Venous
12/18/24 10:11 Blood Culture - Preliminary
Blood/Venous No Growth in 24 hours- Final report to follow
12/13/24 21:05 Blood Culture - Final
Blood/Venous No Growth - Final Report
12/15/24 17:08 Blood Culture - Preliminary
Blood/Venous Enterococcus faecalis
Gram Stain - Preliminary
12/13/24 21:05 Blood Culture - Preliminary
Blood/Venous Enterococcus faecalis
Gram Stain - Preliminary
12/15/24 17:08 Blood Culture - Preliminary
Blood/Venous Enterococcus faecalis
Gram Stain - Preliminary
12/13/24 21:05 Salmonella/Shigella Culture - Final
Feces/Stool No Salmonella, Shigella, Aeromonas or Plesiomonas species
isolated.
Campylobacter Culture - Final
No Campylobacter species isolated.
Shiga Toxin Test - Final
No E. coli Shiga Toxin 1 or 2 detected.
12/14/24 15:01 MRSA Screen - Final
Nose Staph aureus MRSA
12/13/24 21:05 C. difficile GDH Antigen & Toxins - Final
Feces/Stool Negative for toxigenic C.difficile
Blood Culture Preliminary 12/13/24
Positive for Enterococcus faecalis.
Performed by [employer] methodology.
Organism 1 Enterococcus faecalis
1. Enterococcus faecalis
M.I.C. RX
--------- ---
Ampicillin <=2 S
Gentamicin Synergy Screen >500 R
Vancomycin 1 S
Imaging:
12/13/24 CT a/p: Diffuse bowel wall thickening and portal venous gas suggestive of possible ischemic bowel. No evidence for bowel perforation at this time. Thickening of the ascending colon likely inflammatory or ischemic in etiology; however,
recommend correlation with colonoscopy to rule out underlying mass. Bilateral lower lobe pneumonia, progressed. Redemonstration of large midline/right para midline sacral decubitus ulcer at the level of and extending to the sacrococcygeal junction,
progressed from prior with probable chronic erosion of the coccyx. No overt CT evidence for active osteomyelitis of the distal sacrum.
--- NOTE | 2024-12-20 14:19 | W.PN.NEPH.HD ---
Assessment
-
Patient seen on dialysis
Temporary catheter placed in setting of bacteremia
Receives vancomycin postdialysis
Remains on meropenem for Enterococcus faecalis
4K bath administered for ongoing stool losses with potassium level 3 point
UF cut back to GI losses
Discussed with
Progress Note - Hemodialysis
-
Date of Service: December 20, 2024
Duration: 30 minutes and 3 hours
Potassium Bath: 4
Calcium Bath: 2.5
Opti-Dialyzer: 160
Ultrafiltration: Other (0.5 kg)
Blood Flow: 350
Dialysate Flow: 600
Heparin: None
EPO: 10,000
[2024-12-20] MEDS: RETACRIT 10000 UNITS IV (15:52)
--- NOTE | 2024-12-20 16:10 | CM ---
F/U: Hospitalist Notes states that patient may have ichemic bowel, that he is to continue IV Vanco for 6 weeks- 12/13/24-01/23/25, (unsure if patient has PICC) finished another today, surgery will not operate on his wounds, and to resume tube feeds.
GOC was discussed with the [facility] and thus far, no comfort or hospice. [facility] has not asked about another facility. PLAN: Return to [facility] when ready.
[2024-12-20] MEDS: MYCOSTATIN ORAL SUSPENSION PO (18:23)
[2024-12-20] MEDS: VANCOCIN 150 IV (18:26)
[2024-12-20] MEDS: MERREM 1000 MG IV (18:26)
[2024-12-20] MEDS: STERILE WATER FOR INJECTION 20 ML IV (18:26)
--- NOTE | 2024-12-20 19:21 | PTCARENOTE ---
Assumed care of patient at change of shift. Pt to IR for HD cath this afternoon, late start to HD and did not finish until 1800. was at bedside today and updated. TF increased to goal of 55/hr approx 1400. Wellington catheter and FMS remain intact.
Assessment, care and VS as charted.
[2024-12-20] MEDS: CARAFATE SUSPENSION TUBE (20:20)
[2024-12-21] VITALS (10 sets, daily range): BP systolic 125–179; BP diastolic 51–86
--- NOTE | 2024-12-21 08:29 | PHA.VAN.FU ---
Vancomycin Assessment / Plan
- Assessment
Hemodialysis Schedule: MWF
Last Hemodialysis performed: Mon 12/20
In the past 24 hrs, patient has been: Afebrile
- Dosing Plan
Dosing by Level: Hold off on dosing today
- Monitoring Plan
Random Level: pre-HD 12/22
Monitoring Comments: if level remains appropriate, will consider Vanc 750mg HD MW and 1g Fr
- Follow Up
Pharmacy will continue to follow.
Vancomycin Follow UP
- -
Patient Age: 59
Patient Sex: Male
Vancomycin Day #: 8
Indication: Gi / Intra-Abdominal
Requesting Provider: Dr. Olsen / Eddi
Pertinent Antimicrobial Allergies:
NKDA
Height / Weight:
Height 5 ft 9 in
Actual Weight 87 kg
Pertinent Past Medical History: ESRD - HD, paraplegia, BMI: 28
- Vital Signs / Lab Results
Temp Pulse Resp BP Pulse Ox
97.8 F 74 8 141/51 97
12/21/24 07:33 12/21/24 06:00 12/21/24 06:00 12/21/24 06:00 12/21/24 06:00
Lab Results - Hematology
12/18/24 12/19/24 12/20/24
10:10 06:11 03:37
WBC 12.0 H 13.3 H 11.7 H
Lab Results - Chemistry
12/18/24 12/19/24 12/20/24
17:57 06:11 03:37
BUN 20 21 H 27 H
Creatinine 1.8 H 2.2 H 2.5 H
Estimated Creat Clear 44 36 32
Microbiology Results
12/17/24 05:58 Blood Culture - Preliminary
Blood/Venous No Growth in 4 days- Final report to follow
12/13/24 21:05 Blood Culture - Final
Blood/Venous Enterococcus faecalis
Gram Stain - Final
12/19/24 10:24 Blood Culture - Preliminary
Blood/Venous No Growth in 24 hours- Final report to follow
12/18/24 10:11 Blood Culture - Preliminary
Blood/Venous No Growth in 48 hours- Final report to follow
12/17/24 12:48 Blood Culture - Preliminary
Blood/Venous Enterococcus faecalis
Gram Stain - Preliminary
Therapeutic Drug Monitoring
Random Vancomycin 16.6 ug/ml 12/20/24 03:37
[2024-12-21] MEDS: CARAFATE SUSPENSION TUBE ×2 (09:19→20:44)
--- NOTE | 2024-12-21 09:19 | PTCARENOTE ---
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 Patient resting comfortably in bed. AAOx1, mostly to self. No events noted overnight. No non-verbal cues for pain. Remains on Room Air. Tubefeed @ goal wit H20 flush, tolerating well. Wound care to be done.
No testing scheduled at this time, likely HD tomorrow. Call bourgeois in reach.
[2024-12-21] MEDS: HEPARIN 5000 UNITS SC ×2 (09:20→20:45)
[2024-12-21] MEDS: ZOLOFT 25 MG TUBE (09:20)
[2024-12-21] MEDS: ULTRAM 50 MG TUBE ×2 (09:20→20:44)
[2024-12-21] MEDS: TYLENOL 650 MG TUBE (09:20)
[2024-12-21] MEDS: MYCOSTATIN ORAL SUSPENSION 10 ML PO ×3 (09:20→20:45)
[2024-12-21] MEDS: ZYLOPRIM 100 MG TUBE (09:20)
[2024-12-21] MEDS: PROTONIX IV 40 MG IV ×2 (09:21→20:44)
[2024-12-21] MEDS: DAKIN'S SOLUTION 0.125% 1/4 STRENGTH 473 ML TOPICAL ×2 (09:21→20:58)
[2024-12-21] MEDS: FIRVANQ 125 MG TUBE (09:21)
[2024-12-21] MEDS: NSS (PRESERVATIVE FREE) 10 ML IV ×2 (09:21→20:44)
[2024-12-21] MEDS: DESENEX/MITRAZOL/ZEASORB 1 APPLIC TOPICAL ×2 (09:22→20:57)
--- NOTE | 2024-12-21 09:41 | W.PN.NEPH.PH ---
Today's Communication / Plan
-
Next dialysis tomorrow via temp cath
Maintains on IV vancomycin for total of 6-week course
Assessment/Plan
-
IMP:
Acute blood loss anemia 2/2 GIB on anemia of chronic disease 2/2 ESRD
Diarrhea
Hx of recent C.diff
Leukocytosis
ESRD on HD-MWF [facility]
left UE AVF
right chest wall catheter
Mild hypokalemia
Dysphagia on PEG
Hx of CVA with residual aphasia and paraplegia
Urine retention
NIDDM
Plan:
Patient now with temporary dialysis cath
Continue dialysis per family request
Antibiotics per ID
soft BP, monitor
GI follows suspected to have ischemic bowel
hgb decreasing, prn transfusion
poor prognosis
Persistent bacteremia Enterococcus/discussed with infectious disease will remove dialysis catheter = removed 12/17
Surveillance cultures negative from 12/19/2024
Ordered temporary dialysis catheter for Friday until we are sure cultures have cleared

-
-
Date of Service: December 21, 2024
CC / HPI / ROS
-
Chief Complaint:
ESRD,
History of Present Illness:
ESRD chronic MWF
on Vanco for ESBL enterococcal bacteremia
Anemia persist
WBC remain high 18.2k
Review of Systems:
No fevers
Nonverbal
Labs
-
Labs:
eGFR 28.87 12/20/24 03:37
Albumin 2.2 g/dl (3.5-5.0) L 12/15/24 04:30
Physical Exam
-
Vital Signs:
Vital Signs
Temp Pulse Resp BP Pulse Ox
97.8 F 74 8 141/51 97
12/21/24 07:33 12/21/24 06:00 12/21/24 06:00 12/21/24 06:00 12/21/24 06:00
Cardiovascular:: Regular rate and rhythm
Respiratory:: Bilateral: Coarse
Lung Excursion:: Normal
Abdomen:: Nontender and Soft
Bowel Sounds:: Normal
Extremity Edema:: None: Bilateral:
Wellington Catheter: Yes
--- NOTE | 2024-12-21 09:51 | W.PN.ID1 ---
Addendum entered and electronically signed by Dunia Trejo MD 12/21/24 12:12:
HD cath was a potential source of bacteremia
Original Note:
Date of Service
Date of Service: December 21, 2024
Today's Communication
- has a temp HD cath, when blood cultures are no growth at 72 hours can replace the permanent line
- Continue IV vancomycin to be given post HD plan 6 week course 12/13-01/23
Assessment / Plan
# Ischemic bowel. Rectal bleeding resolved.
# Enterococcus faecalis bacteremia 12/13, 12/15, 12/17
# s/p Hypotension from blood loss rectal bleeding
# Leukocytosis persists
# Progression of large Stage IV sacral decubitus, probably underlying osteo. No role for [facility] IV abx (futile).
# Chronic stage IV sacral decubitus wound, too high risk for diverting colostomy
# hx C. diff x 1 (august 2024)
# ESRD on HD via tunneled catheter
# CVA, paraplegia, bed bound, PEG on tube feed
# History of intra-abdominal abscess/necrotizing infection s/p exploratory laparotomy
PLAN:
- Repeat blood x2 12/15 also with e faecalis; BCx 12/18 & 12/19 NGTD
- Echo (12/17) : mild thickening of mitral valve leaflets. No clear evidence of vegetation
- has a temp HD cath, when blood cultures are no growth at 72 hours can replace the permanent line
- Continue IV vancomycin to be given post HD plan 6 week course 12/13-01/23
- completed meropenem 1g IV q24 (d#7)) for intra-ab coverage and h/o MDRO.
- Continue C. diff prophylaxis with enteric Vanco 125mg daily through 01/01/25.
- Trend wbc.
- Overall prognosis is poor to nil. Doubt any possibility of realistic recovery or return to a quality of life. Remains full code at this time.
- Continue GOC discussion with .
Conditions present on admission:
CVA and paraplegia
Dysphagia status post PEG
Atrial fibrillation on Eliquis
HTN
End-stage renal disease on hemodialysis Friday via right IJ PermCath
GIB/erosive gastritis
C. diff x 1 (08/2024)
Chronic sacral decubitus wounds, too high risk for diverting colostomy
Urinary retention with griffiths
Left upper extremity AV fistula placement
History of intra-abdominal abscess/necrotizing infection s/p exploratory laparotomy
Chief Complaint
-: Leukocytosis and Other
Subjective / Review of Systems
afebrile
bp stable
tolerating current therapies
Vital Signs / Physical Exam
Vital Signs
Vital Signs
Temp Pulse Resp BP Pulse Ox
97.8 F 74 8 141/51 97
12/21/24 07:33 12/21/24 06:00 12/21/24 06:00 12/21/24 06:00 12/21/24 06:00
Physical Exam
Constitutional: No Acute Distress
Cardiovascular: Regular Rate and S1/S2; Negative Murmur or Rub
Pulmonary: Clear and Symmetric; Negative Wheezes or Rales
Gastrointestinal: Soft, Non Tender, Non Distended and Normal Bowel Sounds
Skin: Warm and Dry; Negative Rash or Jaundice
Objective Data
Lab Data
PT 20.3 Sec (11.4-14.6) H 12/13/24 20:02
INR 1.72 12/13/24 20:02
APTT 49.0 Sec (23.4-35.0) H 12/13/24 20:02
Estimated Creat Clear 32 ml/min 12/20/24 03:37
Lactic Acid 1.4 mmol/L (0.7-2.0) 12/14/24 00:13
Total Bilirubin 0.9 mg/dl (0.2-1.3) 12/15/24 04:30
AST 19 U/L (17-59) 12/15/24 04:30
ALT 15 U/L (0-50) 12/15/24 04:30
Alkaline Phosphatase 98 U/L (38-126) 12/15/24 04:30
Most recent labs reviewed.
Micro Results:
12/17/24 05:58 Blood Culture - Preliminary
Blood/Venous No Growth in 4 days- Final report to follow
12/13/24 21:05 Blood Culture - Final
Blood/Venous Enterococcus faecalis
Gram Stain - Final
12/19/24 10:24 Blood Culture - Preliminary
Blood/Venous No Growth in 24 hours- Final report to follow
12/18/24 10:11 Blood Culture - Preliminary
Blood/Venous No Growth in 48 hours- Final report to follow
12/17/24 12:48 Blood Culture - Preliminary
Blood/Venous Enterococcus faecalis
Gram Stain - Preliminary
12/13/24 21:05 Blood Culture - Final
Blood/Venous No Growth - Final Report
12/15/24 17:08 Blood Culture - Preliminary
Blood/Venous Enterococcus faecalis
Gram Stain - Preliminary
12/15/24 17:08 Blood Culture - Preliminary
Blood/Venous Enterococcus faecalis
Gram Stain - Preliminary
12/13/24 21:05 Salmonella/Shigella Culture - Final
Feces/Stool No Salmonella, Shigella, Aeromonas or Plesiomonas species
isolated.
Campylobacter Culture - Final
No Campylobacter species isolated.
Shiga Toxin Test - Final
No E. coli Shiga Toxin 1 or 2 detected.
12/14/24 15:01 MRSA Screen - Final
Nose Staph aureus MRSA
12/13/24 21:05 C. difficile GDH Antigen & Toxins - Final
Feces/Stool Negative for toxigenic C.difficile
Blood Culture Preliminary 12/13/24
Positive for Enterococcus faecalis.
Performed by [employer] methodology.
Organism 1 Enterococcus faecalis
1. Enterococcus faecalis
M.I.C. RX
--------- ---
Ampicillin <=2 S
Gentamicin Synergy Screen >500 R
Vancomycin 1 S
Imaging:
12/13/24 CT a/p: Diffuse bowel wall thickening and portal venous gas suggestive of possible ischemic bowel. No evidence for bowel perforation at this time. Thickening of the ascending colon likely inflammatory or ischemic in etiology; however,
recommend correlation with colonoscopy to rule out underlying mass. Bilateral lower lobe pneumonia, progressed. Redemonstration of large midline/right para midline sacral decubitus ulcer at the level of and extending to the sacrococcygeal junction,
progressed from prior with probable chronic erosion of the coccyx. No overt CT evidence for active osteomyelitis of the distal sacrum.
--- NOTE | 2024-12-21 11:53 | W.PN.HOSP.TC ---
Today's Communication/Plan
-
Continue antibiotics
Follow blood cultures
See plan
Assessment / Plan
Assessment / Plan
Physical Exam
Gen: Not in acute distress
HEENT: Normocephalic
Neck: Supple
CV: RRR, +S1/S2
Resp: CTAB anteriorly
Abd: +BS, soft, NT, ND
Skin: Warm. Dry. no LE edema
Neuro: continues to remain CN 2-12 intact, unable to participate in neurological exam
Psych: Calm

12/17/24 12:48 Blood/Venous Blood Culture - Preliminary
Positive culture in progress
12/17/24 12:48 Blood/Venous Gram Stain - Preliminary
12/17/24 05:58 Blood/Venous Blood Culture - Preliminary
No Growth in 48 hours- Final report to follow
12/13/24 21:05 Blood/Venous Blood Culture - Final
No Growth - Final Report
12/15/24 17:08 Blood/Venous Blood Culture - Preliminary
Enterococcus faecalis
12/15/24 17:08 Blood/Venous Gram Stain - Preliminary
12/13/24 21:05 Blood/Venous Blood Culture - Preliminary
Enterococcus faecalis
12/13/24 21:05 Blood/Venous Gram Stain - Preliminary
12/15/24 17:08 Blood/Venous Blood Culture - Preliminary
Enterococcus faecalis
12/15/24 17:08 Blood/Venous Gram Stain - Preliminary
12/13/24 21:05 Feces/Stool Salmonella/Shigella Culture - Final
No Salmonella, Shigella, Aeromonas or Plesiomonas species
isolated.
12/13/24 21:05 Feces/Stool Campylobacter Culture - Final
No Campylobacter species isolated.
12/13/24 21:05 Feces/Stool Shiga Toxin Test - Final
No E. coli Shiga Toxin 1 or 2 detected.
12/14/24 15:01 Nose MRSA Screen - Final
Staph aureus MRSA
12/13/24 21:05 Feces/Stool C. difficile GDH Antigen & Toxins - Final
Negative for toxigenic C.difficile
CT A/P w/IV: Diffuse bowel wall thickening and portal venous gas suggestive of possible ischemic bowel. No evidence for bowel perforation at this time. Thickening of the ascending colon likely inflammatory or ischemic in etiology; however, recommend
correlation with colonoscopy to rule out underlying mass. Large sacral decubitus ulcer as described. Bilateral lower lobe pneumonia, progressed.
CT A/P with PO/IV: Redemonstration of extensive small bowel wall thickening and wall thickening of the ascending colon. There is also mild circumferential wall thickening of proximal to mid transverse colon. This is worrisome for ischemic bowel, as
noted previously. Improvement in portal venous gas. No evidence for pneumoperitoneum. Layering stones versus sludge in the gallbladder lumen. Small amount of perihepatic fluid. There is also moderate fluid in the lesser sac. Redemonstration of large
sacral decubitus ulcer. There is absence of the distal aspect of the sacrum and coccyx; this is without change. Anasarca. Kidneys do not excrete contrast material. This is consistent with known renal failure. Hepatomegaly. No focal hepatic lesion.
What likely represents pneumonia in the lower lobes noted. This is stable on the left, and worse on the right.

Assessment/Plan
Sepsis/bacteremia, POA
Enterococcus faecalis bacteremia
HD cath was potential source of bacteremia
-likely due to ischemic bowel (imaging above), less likely PNA
-s/p 30cc/kg NS bolus, BPs improved
-Blood cultures with enterococcus
-Continue Vanco (IV and PO as C diff Ag POS in the past) -- IV Vancomycin to be given post HD plan 6 week course 12/13/24-01/23/25. Completed Meropenem course.
-Surgery saw in c/s
-Case discussed with Dr. Peters over [employer] on 12/15/24. He is not recommending surgery and is recommending hospice.
-Quoted from Dr. Peters's progress note 12/15/24, 'Discussed GOC with . Rec DNR/DNI status. Discussed hospice briefly as well. His imaging shows improvement and he remains stable overall. His exam is limited but appears benign. Advised he is
high risk for surgery. Discussed concern for extensive bowel involvement, which if it does not improve, may make surgical management futile. She verbalized understanding.'
-TFs resumed
-IJ pulled with POS BCxs
-Patient now has a temp HD cath; when blood cultures are no growth at 72 hours can replace the permanent line
-follow serial BCxs
Acute blood loss anemia due to acute rectal bleeding
-exacerbated by Eliquis which remains on hold (and I honestly do not see how Eliquis could safely be restarted)
-blood return with rectal tube placement in ER
-s/p 1U pRBCs
-trend Hb
-cont PPI
-GI saw in consult
Other Problems:
Stage 4 sacral pressure ulcer: wound care following
Recent severe erosive gastritis (no H. pylori on recent path)
PAF: Holding Eliquis
ESRD on HD: renal following for HD (M/W/F). Currently on line holiday (AVF unable to be used), will need replacement HD cath on Friday.
h/o chronic Diarrhea
h/o C Diff carrier status (Ag POS) -- continue C. diff prophylaxis with enteric Vanco 125mg daily through 01/01/25
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
h/o CVA with residual aphasia and paraplegia (was cared for [facility])
Bedbound status
Hepatosplenomegaly
#Recent acute Urinary retention(2liters) required Wellington catheter on discharge
#Acute urinary retention
#Phimosis
#Difficult Wellington Catheter
-I communicated via [place] [employer] on 12/21/[address] Garsia who stated that the Wellington catheter was requested initially to monitor urine output, and:
-The Wellington can be removed and an external condom catheter applied
Pt is critically ill with multiple, severe, active comorbidities. Dr. Olsen discussed this at length with the pt's significant other over the phone 12/14 and 12/15 and recommended hospice. Palliative care following. Ultimately care is futile. At
this time pt's significant other continues to want restorative/aggressive care.
FULL Code
DVT proph: Pt has been on SCDs. With stability of Hgb, Heparin SC previously started and monitored closely for recurrent bleeding.
Anticipated Discharge: > 48 hours
Subjective/Interval History
-
Date of Service: December 21, 2024
Patient was seen and examined. No new events or issues reported.
Objective Data
-
Labs:
Laboratory Results
12/21/24
06:00
WBC Pending
Hgb Pending
Hct Pending
Plt Count Pending
Sodium Pending
Potassium Pending
Chloride Pending
Carbon Dioxide Pending
BUN Pending
Creatinine Pending
Glucose Pending
Calcium Pending
Vital Signs:
Vital Signs
Temp Pulse Resp BP Pulse Ox
97.5 F 74 8 141/51 99
12/21/24 11:50 12/21/24 06:00 12/21/24 06:00 12/21/24 06:00 12/21/24 10:17
I&O
12/20/24 12/21/24 12/22/24
06:59 06:59 06:59
Intake Total 965 / 965 150 / 150
Output Total 125 / 125 50 / 50
Balance 840 / 840 100 / 100
--- NOTE | 2024-12-21 17:00 | PTCARENOTE ---
Spoke with hospitalist about being unable to obtain lab work. Hospitalist ok with getting them tomorrow with HD.
[2024-12-21] MEDS: STERILE WATER FOR INJECTION IV (17:28)
[2024-12-22] VITALS (42 sets, daily range): BP systolic 85–157; BP diastolic 59–99; BMI 28.4; BMI 29.2
--- NOTE | 2024-12-22 02:17 | DOWNTIME ---
There was a [facility] [employer] Downtime on 12/22/2024 from 0100 to 12/22/2024 at 0215. Downtime documentation of patient's care, including medication administrations, has been reconciled in the electronic record per guidelines. Refer to the
patient's paper chart under the miscellaneous tab to see printed paper medication records and downtime forms.
--- NOTE | 2024-12-22 05:02 | PTCARENOTE ---
received patient from previous shift. AAOx1. On room air spo2 100%. FMS in place. TF running at 55 ml/hr with a 25 ml/hr flush. HD today. assessment an vitals as charted. care ongoing.
[2024-12-22] MEDS: HEPARIN 5000 UNITS SC ×2 (07:14→19:58)
[2024-12-22] MEDS: NSS (PRESERVATIVE FREE) 10 ML IV ×2 (07:14→19:57)
[2024-12-22] MEDS: FIRVANQ 125 MG TUBE (07:14)
[2024-12-22] MEDS: PROTONIX IV 40 MG IV ×2 (07:14→19:57)
[2024-12-22] MEDS: CARAFATE SUSPENSION TUBE ×2 (07:14→19:58)
[2024-12-22] MEDS: ULTRAM 50 MG TUBE ×2 (07:15→19:57)
[2024-12-22] MEDS: TYLENOL 650 MG TUBE (07:15)
[2024-12-22] MEDS: ZOLOFT 25 MG TUBE (07:15)
[2024-12-22] MEDS: ZYLOPRIM 100 MG TUBE (07:15)
[2024-12-22] MEDS: MYCOSTATIN ORAL SUSPENSION 10 ML PO ×3 (07:15→19:58)
[2024-12-22] MEDS: DAKIN'S SOLUTION 0.125% 1/4 STRENGTH 473 ML TOPICAL ×2 (07:15→19:58)
[2024-12-22] MEDS: DESENEX/MITRAZOL/ZEASORB 1 APPLIC TOPICAL ×2 (07:16→19:59)
--- NOTE | 2024-12-22 08:24 | W.PN.HOSP.TC ---
Today's Communication/Plan
-
Tunneled dialysis placement tomorrow
Anticipated discharge after above line placement tomorrow
Assessment / Plan
Assessment / Plan
Physical Exam
Gen: Not in acute distress
HEENT: Normocephalic
Neck: Supple
CV: RRR, +S1/S2
Resp: CTAB anteriorly
Abd: +BS, soft, NT, ND
Skin: Warm. Dry. no LE edema
Neuro: continues to remain CN 2-12 intact, unable to participate in neurological exam
Psych: Calm

12/17/24 12:48 Blood/Venous Blood Culture - Preliminary
Positive culture in progress
12/17/24 12:48 Blood/Venous Gram Stain - Preliminary
12/17/24 05:58 Blood/Venous Blood Culture - Preliminary
No Growth in 48 hours- Final report to follow
12/13/24 21:05 Blood/Venous Blood Culture - Final
No Growth - Final Report
12/15/24 17:08 Blood/Venous Blood Culture - Preliminary
Enterococcus faecalis
12/15/24 17:08 Blood/Venous Gram Stain - Preliminary
12/13/24 21:05 Blood/Venous Blood Culture - Preliminary
Enterococcus faecalis
12/13/24 21:05 Blood/Venous Gram Stain - Preliminary
12/15/24 17:08 Blood/Venous Blood Culture - Preliminary
Enterococcus faecalis
12/15/24 17:08 Blood/Venous Gram Stain - Preliminary
12/13/24 21:05 Feces/Stool Salmonella/Shigella Culture - Final
No Salmonella, Shigella, Aeromonas or Plesiomonas species
isolated.
12/13/24 21:05 Feces/Stool Campylobacter Culture - Final
No Campylobacter species isolated.
12/13/24 21:05 Feces/Stool Shiga Toxin Test - Final
No E. coli Shiga Toxin 1 or 2 detected.
12/14/24 15:01 Nose MRSA Screen - Final
Staph aureus MRSA
12/13/24 21:05 Feces/Stool C. difficile G[facility] Antigen & Toxins - Final
Negative for toxigenic C.difficile
CT A/P w/IV: Diffuse bowel wall thickening and portal venous gas suggestive of possible ischemic bowel. No evidence for bowel perforation at this time. Thickening of the ascending colon likely inflammatory or ischemic in etiology; however, recommend
correlation with colonoscopy to rule out underlying mass. Large sacral decubitus ulcer as described. Bilateral lower lobe pneumonia, progressed.
CT A/P with PO/IV: Redemonstration of extensive small bowel wall thickening and wall thickening of the ascending colon. There is also mild circumferential wall thickening of proximal to mid transverse colon. This is worrisome for ischemic bowel, as
noted previously. Improvement in portal venous gas. No evidence for pneumoperitoneum. Layering stones versus sludge in the gallbladder lumen. Small amount of perihepatic fluid. There is also moderate fluid in the lesser sac. Redemonstration of large
sacral decubitus ulcer. There is absence of the distal aspect of the sacrum and coccyx; this is without change. Anasarca. Kidneys do not excrete contrast material. This is consistent with known renal failure. Hepatomegaly. No focal hepatic lesion.
What likely represents pneumonia in the lower lobes noted. This is stable on the left, and worse on the right.

Assessment/Plan
Sepsis/bacteremia, POA
Enterococcus faecalis bacteremia
HD cath was potential source of bacteremia
-likely due to ischemic bowel (imaging above), less likely PNA
-s/p 30cc/kg NS bolus, BPs improved
-Blood cultures with enterococcus
-Continue Vanco (IV and PO as C diff Ag POS in the past) -- IV Vancomycin to be given post HD plan 6 week course 12/13/24-01/23/25. Completed Meropenem course.
-Surgery saw in c/s
-Case discussed with Dr. Peters over [employer] on 12/15/24. He is not recommending surgery and is recommending hospice.
-Quoted from Dr. Peters's progress note 12/15/24, 'Discussed GOC with . Rec DNR/DNI status. Discussed hospice briefly as well. His imaging shows improvement and he remains stable overall. His exam is limited but appears benign. Advised he is
high risk for surgery. Discussed concern for extensive bowel involvement, which if it does not improve, may make surgical management futile. She verbalized understanding.'
-TFs resumed
-IJ pulled with POS BCxs
-Since blood cultures are no growth at 72 hours can replace the permanent line --> IR can replace temporary line with permanent (tunneled) line tomorrow 12/23/24 -- tube feeds to be held after midnight for this
-No need for PICC line -- discussed with ID trina Duráno will given with dialysis
-follow serial BCxs
Acute blood loss anemia due to acute rectal bleeding
-exacerbated by Eliquis which remains on hold (and I honestly do not see how Eliquis could safely be restarted)
-blood return with rectal tube placement in ER
-s/p 1U pRBCs
-trend Hb
-cont PPI
-GI saw in consult
Other Problems:
Stage 4 sacral pressure ulcer: wound care following
Recent severe erosive gastritis (no H. pylori on recent path)
PAF: Holding Eliquis
ESRD on HD: renal following for HD (M/W/F). Currently on line holiday (AVF unable to be used), will need replacement HD cath on Friday.
h/o chronic Diarrhea
h/o C Diff carrier status (Ag POS) -- continue C. diff prophylaxis with enteric Vanco 125mg daily through 01/01/25
Dysphagia: on PEG feeds [employer]
h/o CVA with residual aphasia and paraplegia (was cared for [facility])
Bedbound status
Hepatosplenomegaly
#Recent acute Urinary retention(2liters) required Wellington catheter on discharge
#Acute urinary retention
#Phimosis
#Difficult Wellington Catheter
-I communicated via [employer] on 12/21/[address] Garsia who stated that the Wellington catheter was requested initially to monitor urine output, and:
-The Wellington was removed on 12/21/24 and an external condom catheter applied and Dr. Garsia advised this
Pt is critically ill with multiple, severe, active comorbidities. Dr. Olsen discussed this at length with the pt's significant other over the phone 12/14 and 12/15 and recommended hospice. Palliative care following. Ultimately care is futile. At
this time pt's significant other continues to want restorative/aggressive care.
FULL Code
DVT proph: Pt has been on SCDs. With stability of Hgb, Heparin SC previously started and monitored closely for recurrent bleeding.
Anticipated Discharge: Within 24 hours
Subjective/Interval History
-
Date of Service: December 22, 2024
Patient was seen and examined. No new significant issues.
Objective Data
-
Labs:
Laboratory Results
12/21/24 12/22/24
18:06 06:00
WBC Cancelled Pending
Hgb Cancelled Pending
Hct Cancelled Pending
Plt Count Cancelled Pending
Sodium Cancelled Pending
Potassium Cancelled Pending
Chloride Cancelled Pending
Carbon Dioxide Cancelled Pending
BUN Cancelled Pending
Creatinine Cancelled Pending
Glucose Cancelled Pending
Calcium Cancelled Pending
Vital Signs:
Vital Signs
Temp Pulse Resp BP Pulse Ox
97.6 F 81 14 142/74 98
12/22/24 08:24 12/22/24 08:00 12/22/24 08:00 12/22/24 08:00 12/22/24 08:13
I&O
12/21/24 12/22/24 12/23/24
06:59 06:59 06:59
Intake Total 150 / 150 1010 / 1010
Output Total 50 / 50 120 / 120
Balance 100 / 100 890 / 890
--- NOTE | 2024-12-22 08:45 | PTCARENOTE ---
Patient received from operation shift supervisor. Patient resting comfortably in bed. AAOx1, mostly to self but is able to mouth and say words and acknowledge questions better. No events noted overnight. No non-verbal or verbal cues for pain. Remains on Room
Air. Tubefeed @ goal with H20 flush, tolerating well. Wound care to be done after HD. HD at noon today. Call bourgeois in reach.
--- NOTE | 2024-12-22 09:50 | W.PN.ID1 ---
Date of Service
Date of Service: December 22, 2024
Today's Communication
- has a temp HD cath, can replace the permanent line
- Continue IV vancomycin to be given post HD plan 6 week course 12/13-01/23
Assessment / Plan
# Ischemic bowel. Rectal bleeding resolved.
# Enterococcus faecalis bacteremia 12/13, 12/15, 12/17
# s/p Hypotension from blood loss rectal bleeding
# Leukocytosis persists
# Progression of large Stage IV sacral decubitus, probably underlying osteo. No role for correction IV abx (futile).
# Chronic stage IV sacral decubitus wound, too high risk for diverting colostomy
# hx C. diff x 1 (august 2024)
# ESRD on HD via tunneled catheter
# CVA, paraplegia, bed bound, PEG on tube feed
# History of intra-abdominal abscess/necrotizing infection s/p exploratory laparotomy
PLAN:
- Repeat blood x2 12/15 also with e faecalis; BCx 12/18 & 12/19 NGTD
- Echo (12/17) : mild thickening of mitral valve leaflets. No clear evidence of vegetation
- has a temp HD cath, can replace the permanent line
- Continue IV vancomycin to be given post HD plan 6 week course 12/13-01/23
- completed meropenem 1g IV q24 (d#7)) for intra-ab coverage and h/o MDRO.
- Continue C. diff prophylaxis with enteric Vanco 125mg daily through 01/01/25.
- Trend wbc.
- Overall prognosis is poor to nil. Doubt any possibility of realistic recovery or return to a quality of life. Remains full code at this time.
- Continue C discussion with .
Conditions present on admission:
CVA and paraplegia
Dysphagia status post PEG
Atrial fibrillation on Eliquis
HTN
End-stage renal disease on hemodialysis Friday via right IJ PermCath
GIB/erosive gastritis
C. diff x 1 (08/2024)
Chronic sacral decubitus wounds, too high risk for diverting colostomy
Urinary retention with griffiths
Left upper extremity AV fistula placement
History of intra-abdominal abscess/necrotizing infection s/p exploratory laparotomy
Chief Complaint
-: Leukocytosis and Other
Subjective / Review of Systems
afebrile
bp stable
Vital Signs / Physical Exam
Vital Signs
Vital Signs
Temp Pulse Resp BP Pulse Ox
97.6 F 81 14 142/74 98
12/22/24 08:24 12/22/24 08:00 12/22/24 08:00 12/22/24 08:00 12/22/24 08:13
Physical Exam
Constitutional: No Acute Distress
Cardiovascular: Regular Rate and S1/S2; Negative Murmur or Rub
Pulmonary: Clear and Symmetric; Negative Wheezes or Rales
Gastrointestinal: Soft, Non Tender, Non Distended and Normal Bowel Sounds
Skin: Warm and Dry; Negative Rash or Jaundice
Objective Data
Lab Data
PT 20.3 Sec (11.4-14.6) H 12/13/24 20:02
INR 1.72 12/13/24 20:02
APTT 49.0 Sec (23.4-35.0) H 12/13/24 20:02
Estimated Creat Clear Cancelled 12/21/24 18:06
Lactic Acid 1.4 mmol/L (0.7-2.0) 12/14/24 00:13
Total Bilirubin 0.9 mg/dl (0.2-1.3) 12/15/24 04:30
AST 19 U/L (17-59) 12/15/24 04:30
ALT 15 U/L (0-50) 12/15/24 04:30
Alkaline Phosphatase 98 U/L (38-126) 12/15/24 04:30
Most recent labs reviewed.
Micro Results:
12/17/24 05:58 Blood Culture - Final
Blood/Venous No Growth - Final Report
12/17/24 12:48 Blood Culture - Final
Blood/Venous Enterococcus faecalis
Gram Stain - Final
12/15/24 17:08 Blood Culture - Final
Blood/Venous Enterococcus faecalis
Gram Stain - Final
12/15/24 17:08 Blood Culture - Final
Blood/Venous Enterococcus faecalis
Gram Stain - Final
12/19/24 10:24 Blood Culture - Preliminary
Blood/Venous No Growth in 48 hours- Final report to follow
12/18/24 10:11 Blood Culture - Preliminary
Blood/Venous No Growth in 72 hours- Final report to follow
12/13/24 21:05 Blood Culture - Final
Blood/Venous Enterococcus faecalis
Gram Stain - Final
12/13/24 21:05 Blood Culture - Final
Blood/Venous No Growth - Final Report
12/13/24 21:05 Salmonella/Shigella Culture - Final
Feces/Stool No Salmonella, Shigella, Aeromonas or Plesiomonas species
isolated.
Campylobacter Culture - Final
No Campylobacter species isolated.
Shiga Toxin Test - Final
No E. coli Shiga Toxin 1 or 2 detected.
12/14/24 15:01 MRSA Screen - Final
Nose Staph aureus MRSA
12/13/24 21:05 C. difficile GDH Antigen & Toxins - Final
Feces/Stool Negative for toxigenic C.difficile
Blood Culture Preliminary 12/13/24
Positive for Enterococcus faecalis.
Performed by [employer].
Organism 1 Enterococcus faecalis
1. Enterococcus faecalis
M.I.C. RX
--------- ---
Ampicillin <=2 S
Gentamicin Synergy Screen >500 R
Vancomycin 1 S
Imaging:
12/13/24 CT a/p: Diffuse bowel wall thickening and portal venous gas suggestive of possible ischemic bowel. No evidence for bowel perforation at this time. Thickening of the ascending colon likely inflammatory or ischemic in etiology; however,
recommend correlation with colonoscopy to rule out underlying mass. Bilateral lower lobe pneumonia, progressed. Redemonstration of large midline/right para midline sacral decubitus ulcer at the level of and extending to the sacrococcygeal junction,
progressed from prior with probable chronic erosion of the coccyx. No overt CT evidence for active osteomyelitis of the distal sacrum.
[2024-12-22 13:08] LABS: Hematocrit 26.8 % (39.0-52.0); Hemoglobin 7.9 g/dL (13.0-18.0); Mean Corp Hgb Conc. 29.5 g/dL (33.0-37.0); Mean Corpuscular Volume 91.5 fL (80.0-94.0); Platelet Count 311 10^3/uL (130-400); Red Cell Dist. Width 17.6 % (11.5-14.5)
[2024-12-22 13:27] LABS: Blood Urea Nitrogen 32 mg/dl (9-20); Calcium 8.1 mg/dl (8.4-10.2); Carbon Dioxide 30 mmol/L (22-30); Chloride 99 mmol/L (98-107); Estimated Creatinine Clearance 36 ml/min; Glucose 129 mg/dl (70-99); Potassium 3.6 mmol/L (3.5-5.1); Sodium 132 mmol/L (135-145); eGFR 33.66
[2024-12-22] MEDS: RETACRIT 10000 UNITS IV (13:32)
--- NOTE | 2024-12-22 13:44 | PHA.VAN.FU ---
Vancomycin Assessment / Plan
- Assessment
Hemodialysis Schedule: MWF
WBC's are: Stable
In the past 24 hrs, patient has been: Afebrile
Concomitant Antimicrobials: vancomycin PO
- Assessment - Therapeutic Drug Monitoring
Random Level: pre-HD = 18
- Dosing Plan
Adjust Regimen to: Vanc 750mg HD MWF
Patient with accumulation in level today - will keep dosing consistent throughout week rather than increase prior to longer interdialytic window
- Monitoring Plan
No level(s) ordered at this time: consider pre-HD level for Friday to continue following trend
- Follow Up
Pharmacy will continue to follow.
Vancomycin Follow UP
- -
Patient Age: 59
Patient Sex: Male
Vancomycin Day #: 9
Indication: Gi / Intra-Abdominal
Requesting Provider: Dr. Olsen / Eddi
Pertinent Antimicrobial Allergies:
NKDA
Height / Weight:
Height 5 ft 9 in
Actual Weight 89.5 kg
Pertinent Past Medical History: ESRD - HD, paraplegia, BMI: 28
- Vital Signs / Lab Results
Temp Pulse Resp BP Pulse Ox
97.5 F 86 13 130/73 99
12/22/24 11:40 12/22/24 13:00 12/22/24 13:00 12/22/24 13:00 12/22/24 13:00
Lab Results - Hematology
12/20/24 12/21/24 12/22/24
03:37 18:06 12:45
WBC 11.7 H Cancelled 12.0 H
Lab Results - Chemistry
12/20/24 12/21/24 12/22/24
03:37 18:06 12:45
BUN 27 H Cancelled 32 H
Creatinine 2.5 H Cancelled 2.2 H
Estimated Creat Clear 32 Cancelled 36
Microbiology Results
12/19/24 10:24 Blood Culture - Preliminary
Blood/Venous No Growth in 72 hours- Final report to follow
12/18/24 10:11 Blood Culture - Preliminary
Blood/Venous No Growth in 4 days- Final report to follow
12/17/24 05:58 Blood Culture - Final
Blood/Venous No Growth - Final Report
12/17/24 12:48 Blood Culture - Final
Blood/Venous Enterococcus faecalis
Gram Stain - Final
12/15/24 17:08 Blood Culture - Final
Blood/Venous Enterococcus faecalis
Gram Stain - Final
12/15/24 17:08 Blood Culture - Final
Blood/Venous Enterococcus faecalis
Gram Stain - Final
12/13/24 21:05 Blood Culture - Final
Blood/Venous Enterococcus faecalis
Gram Stain - Final
Therapeutic Drug Monitoring
Random Vancomycin 18.0 ug/ml 12/22/24 12:45
--- NOTE | 2024-12-22 14:14 | W.PN.NEPH.HD ---
Assessment
-
hd sudeep. bp stable
will change to tunnelled PC with clear cultures
Progress Note - Hemodialysis
-
Date of Service: December 22, 2024
Duration: 30 minutes and 3 hours
Potassium Bath: 4
Calcium Bath: 2.5
Opti-Dialyzer: 160
Ultrafiltration: Other (0.5 kg)
Blood Flow: 350
Dialysate Flow: 600
Heparin: None
EPO: 10,000
[2024-12-22] MEDS: VANCOCIN 150 IV (14:24)
[2024-12-22] MEDS: HEPARIN 2000 UNITS INTRACATH (15:29)
--- NOTE | 2024-12-22 16:23 | CM ---
F/U: Patient still not medically stable today. Plan for IV Abx post HD. PLAN: Return to [facility] when ready.
--- NOTE | 2024-12-22 19:02 | PTCARENOTE ---
Tubefeed to be held at midnight for IR tomorrow (12/23) for perm HD cath.
[2024-12-23] VITALS (27 sets, daily range): BP systolic 88–156; BP diastolic 44–76; BMI 28.7; BMI 28.8
--- NOTE | 2024-12-23 04:42 | PTCARENOTE ---
received patient from previous shift. VSS. TF held at midnight for HD cath placement today. wound care done. assessment charted. no acute events overnight.
--- NOTE | 2024-12-23 08:13 | PHA.VAN.FU ---
Vancomycin Assessment / Plan
- Assessment
Hemodialysis Schedule: MWF
Last Hemodialysis performed: 12/22
WBC's are: Stable
In the past 24 hrs, patient has been: Afebrile
Concomitant Antimicrobials: vancomycin PO
- Dosing Plan
Continue: Vanc 750mg HD MWF
- Monitoring Plan
Random Level: 12/24 prior to HD, if remains admitted
Monitoring Comments: if patient discharged, can consider weekly levels on Mondays
- Follow Up
Pharmacy will continue to follow.
Vancomycin Follow UP
- -
Patient Age: 59
Patient Sex: Male
Vancomycin Day #: 10
Indication: Gi / Intra-Abdominal
Requesting Provider: Dr. Olsen / Eddi
Pertinent Antimicrobial Allergies:
NKDA
Height / Weight:
Height 5 ft 9 in
Actual Weight 88.3 kg
Pertinent Past Medical History: ESRD - HD, paraplegia, BMI: 28
- Vital Signs / Lab Results
Temp Pulse Resp BP Pulse Ox
98.4 F 91 14 124/69 94
12/23/24 07:34 12/23/24 05:30 12/23/24 05:30 12/23/24 05:30 12/23/24 05:30
Lab Results - Hematology
12/21/24 12/22/24
18:06 12:45
WBC Cancelled 12.0 H
Lab Results - Chemistry
12/21/24 12/22/24
18:06 12:45
BUN Cancelled 32 H
Creatinine Cancelled 2.2 H
Estimated Creat Clear Cancelled 36
Microbiology Results
12/19/24 10:24 Blood Culture - Preliminary
Blood/Venous No Growth in 72 hours- Final report to follow
12/18/24 10:11 Blood Culture - Preliminary
Blood/Venous No Growth in 4 days- Final report to follow
12/17/24 05:58 Blood Culture - Final
Blood/Venous No Growth - Final Report
12/17/24 12:48 Blood Culture - Final
Blood/Venous Enterococcus faecalis
Gram Stain - Final
12/15/24 17:08 Blood Culture - Final
Blood/Venous Enterococcus faecalis
Gram Stain - Final
12/15/24 17:08 Blood Culture - Final
Blood/Venous Enterococcus faecalis
Gram Stain - Final
Therapeutic Drug Monitoring
Random Vancomycin 18.0 ug/ml 12/22/24 12:45
[2024-12-23] MEDS: CARAFATE SUSPENSION 1 GM TUBE (08:45)
[2024-12-23] MEDS: DAKIN'S SOLUTION 0.125% 1/4 STRENGTH 473 ML TOPICAL ×2 (08:45→20:02)
[2024-12-23] MEDS: DESENEX/MITRAZOL/ZEASORB 1 APPLIC TOPICAL ×2 (08:46→20:02)
[2024-12-23] MEDS: HEPARIN 5000 UNITS SC ×2 (08:48→20:01)
[2024-12-23] MEDS: MYCOSTATIN ORAL SUSPENSION 10 ML PO ×3 (08:50→22:36)
[2024-12-23] MEDS: PROTONIX IV 40 MG IV ×2 (08:51→20:02)
[2024-12-23] MEDS: NSS (PRESERVATIVE FREE) 10 ML IV ×2 (08:51→20:01)
[2024-12-23] MEDS: ULTRAM 50 MG TUBE ×2 (08:52→20:01)
[2024-12-23] MEDS: TYLENOL 650 MG TUBE (08:52)
--- NOTE | 2024-12-23 08:52 | W.PN.ID1 ---
Date of Service
Date of Service: December 23, 2024
Today's Communication
can replace the permanent line
continue vancomycin post HD
Assessment / Plan
# Ischemic bowel. Rectal bleeding resolved.
# Enterococcus faecalis bacteremia 12/13, 12/15, 12/17
# s/p Hypotension from blood loss rectal bleeding
# Leukocytosis persists
# Progression of large Stage IV sacral decubitus, probably underlying osteo. No role for parts counterman IV abx (futile).
# Chronic stage IV sacral decubitus wound, too high risk for diverting colostomy
# hx C. diff x 1 (august 2024)
# ESRD on HD via tunneled catheter
# CVA, paraplegia, bed bound, PEG on tube feed
# History of intra-abdominal abscess/necrotizing infection s/p exploratory laparotomy
PLAN:
- Repeat blood x2 12/15 also with e faecalis; BCx 12/18 & 12/19 NGTD
- Echo (12/17) : mild thickening of mitral valve leaflets. No clear evidence of vegetation
- can replace the permanent line
- Continue IV vancomycin to be given post HD plan 6 week course 12/13-01/23
- completed meropenem 1g IV q24 (d#7)) for intra-ab coverage and h/o MDRO.
- Continue C. diff prophylaxis with enteric Vanco 125mg daily through 01/01/25.
- Trend wbc.
- Overall prognosis is poor to nil. Doubt any possibility of realistic recovery or return to a quality of life. Remains full code at this time.
- Continue GOC discussion with .
Conditions present on admission:
CVA and paraplegia
Dysphagia status post PEG
Atrial fibrillation on Eliquis
HTN
End-stage renal disease on hemodialysis Friday via right IJ PermCath
GIB/erosive gastritis
C. diff x 1 (08/2024)
Chronic sacral decubitus wounds, too high risk for diverting colostomy
Urinary retention with griffiths
Left upper extremity AV fistula placement
History of intra-abdominal abscess/necrotizing infection s/p exploratory laparotomy
Chief Complaint
-: Leukocytosis and Other
Subjective / Review of Systems
afebrile
bp stable
Vital Signs / Physical Exam
Vital Signs
Vital Signs
Temp Pulse Resp BP Pulse Ox
98.4 F 91 14 124/69 94
12/23/24 07:34 12/23/24 05:30 12/23/24 05:30 12/23/24 05:30 12/23/24 05:30
Physical Exam
Constitutional: No Acute Distress
Cardiovascular: Regular Rate and S1/S2; Negative Murmur or Rub
Pulmonary: Clear and Symmetric; Negative Wheezes or Rales
Gastrointestinal: Soft, Non Tender, Non Distended and Normal Bowel Sounds
Skin: Warm and Dry; Negative Rash or Jaundice
Objective Data
Lab Data
Lab Results
12/22/24 12:45
12/22/24 12:45
PT 20.3 Sec (11.4-14.6) H 12/13/24 20:02
INR 1.72 12/13/24 20:02
APTT 49.0 Sec (23.4-35.0) H 12/13/24 20:02
Estimated Creat Clear 36 ml/min 12/22/24 12:45
Lactic Acid 1.4 mmol/L (0.7-2.0) 12/14/24 00:13
Total Bilirubin 0.9 mg/dl (0.2-1.3) 12/15/24 04:30
AST 19 U/L (17-59) 12/15/24 04:30
ALT 15 U/L (0-50) 12/15/24 04:30
Alkaline Phosphatase 98 U/L (38-126) 12/15/24 04:30
Most recent labs reviewed.
Micro Results:
12/19/24 10:24 Blood Culture - Preliminary
Blood/Venous No Growth in 72 hours- Final report to follow
12/18/24 10:11 Blood Culture - Preliminary
Blood/Venous No Growth in 4 days- Final report to follow
12/17/24 05:58 Blood Culture - Final
Blood/Venous No Growth - Final Report
12/17/24 12:48 Blood Culture - Final
Blood/Venous Enterococcus faecalis
Gram Stain - Final
12/15/24 17:08 Blood Culture - Final
Blood/Venous Enterococcus faecalis
Gram Stain - Final
12/15/24 17:08 Blood Culture - Final
Blood/Venous Enterococcus faecalis
Gram Stain - Final
12/13/24 21:05 Blood Culture - Final
Blood/Venous Enterococcus faecalis
Gram Stain - Final
12/13/24 21:05 Blood Culture - Final
Blood/Venous No Growth - Final Report
12/13/24 21:05 Salmonella/Shigella Culture - Final
Feces/Stool No Salmonella, Shigella, Aeromonas or Plesiomonas species
isolated.
Campylobacter Culture - Final
No Campylobacter species isolated.
Shiga Toxin Test - Final
No E. coli Shiga Toxin 1 or 2 detected.
12/14/24 15:01 MRSA Screen - Final
Nose Staph aureus MRSA
12/13/24 21:05 C. difficile GDH Antigen & Toxins - Final
Feces/Stool Negative for toxigenic C.difficile
Blood Culture Preliminary 12/13/24
Positive for Enterococcus faecalis.
Performed by [employer] methodology.
Organism 1 Enterococcus faecalis
1. Enterococcus faecalis
M.I.C. RX
--------- ---
Ampicillin <=2 S
Gentamicin Synergy Screen >500 R
Vancomycin 1 S
Imaging:
12/13/24 CT a/p: Diffuse bowel wall thickening and portal venous gas suggestive of possible ischemic bowel. No evidence for bowel perforation at this time. Thickening of the ascending colon likely inflammatory or ischemic in etiology; however,
recommend correlation with colonoscopy to rule out underlying mass. Bilateral lower lobe pneumonia, progressed. Redemonstration of large midline/right para midline sacral decubitus ulcer at the level of and extending to the sacrococcygeal junction,
progressed from prior with probable chronic erosion of the coccyx. No overt CT evidence for active osteomyelitis of the distal sacrum.
[2024-12-23] MEDS: ZOLOFT 25 MG TUBE (08:53)
[2024-12-23] MEDS: ZYLOPRIM 100 MG TUBE (08:53)
[2024-12-23] MEDS: FIRVANQ 125 MG TUBE (08:57)
--- NOTE | 2024-12-23 10:41 | PN.CDI ---
CDI
- -
CDI:
Physician Documentation Request
Admit Date: 12/13/24 23:29
Dear Doctor Darlene,
Please review the following and provide your response in the progress notes.
Clinical Indicators:
Pt admitted with sepsis 2/2 ischemic bowel/Rectal bleeding /HD line infection -Pt on HD
Sodium levels are as below /Pt has received IVFs
Laboratory Tests
12/13/24 12/14/24 12/17/24
20:02 06:27 05:58
Sodium 133 L 132 L 134 L
12/18/24 12/22/24
17:57 12:45
Sodium 133 L 132 L
Based on the above, could you clarify in the progress notes, the appropriate diagnosis, if significant, that supports the above abnormalities and additional evaluation, monitoring and/or treatment rendered:
Hyponatremia
Abnormal lab value
Other ( please specify)
Use of terms such as suspected, likely, concern for, or probable (associated with a specific diagnosis that is being evaluated, monitored, or treated as if it exists) are acceptable and can be coded in the inpatient setting, when documented at the
time of discharge.
Thank you,
Aniyah Roberts RN
CDI Specialist
[place] [facility]
Please use your independent medical judgment in providing your response.
--- NOTE | 2024-12-23 12:09 | W.PN.HOSP.TC ---
Addendum entered and electronically signed by Brendan Colon MD 12/23/24 16:02:
I just spoke with patient's Key, and she stated very clearly that she wants the patient to go back home, not [facility]. I spoke with case management that home supplies, home VN etc need to be set up.
Original Note:
Today's Communication/Plan
-
Discharge today after permanent dialysis catheter placement
Assessment / Plan
Assessment / Plan
Physical Exam
Gen: Not in acute distress
HEENT: Normocephalic
Neck: Supple
CV: RRR, +S1/S2
Resp: CTAB anteriorly
Abd: +BS, soft, NT, ND
Skin: Warm. Dry. no LE edema
Neuro: continues to remain CN 2-12 intact, unable to participate in neurological exam
Psych: Calm

12/17/24 12:48 Blood/Venous Blood Culture - Preliminary
Positive culture in progress
12/17/24 12:48 Blood/Venous Gram Stain - Preliminary
12/17/24 05:58 Blood/Venous Blood Culture - Preliminary
No Growth in 48 hours- Final report to follow
12/13/24 21:05 Blood/Venous Blood Culture - Final
No Growth - Final Report
12/15/24 17:08 Blood/Venous Blood Culture - Preliminary
Enterococcus faecalis
12/15/24 17:08 Blood/Venous Gram Stain - Preliminary
12/13/24 21:05 Blood/Venous Blood Culture - Preliminary
Enterococcus faecalis
12/13/24 21:05 Blood/Venous Gram Stain - Preliminary
12/15/24 17:08 Blood/Venous Blood Culture - Preliminary
Enterococcus faecalis
12/15/24 17:08 Blood/Venous Gram Stain - Preliminary
12/13/24 21:05 Feces/Stool Salmonella/Shigella Culture - Final
No Salmonella, Shigella, Aeromonas or Plesiomonas species
isolated.
12/13/24 21:05 Feces/Stool Campylobacter Culture - Final
No Campylobacter species isolated.
12/13/24 21:05 Feces/Stool Shiga Toxin Test - Final
No E. coli Shiga Toxin 1 or 2 detected.
12/14/24 15:01 Nose MRSA Screen - Final
Staph aureus MRSA
12/13/24 21:05 Feces/Stool C. difficile GDH Antigen & Toxins - Final
Negative for toxigenic C.difficile
CT A/P w/IV: Diffuse bowel wall thickening and portal venous gas suggestive of possible ischemic bowel. No evidence for bowel perforation at this time. Thickening of the ascending colon likely inflammatory or ischemic in etiology; however, recommend
correlation with colonoscopy to rule out underlying mass. Large sacral decubitus ulcer as described. Bilateral lower lobe pneumonia, progressed.
CT A/P with PO/IV: Redemonstration of extensive small bowel wall thickening and wall thickening of the ascending colon. There is also mild circumferential wall thickening of proximal to mid transverse colon. This is worrisome for ischemic bowel, as
noted previously. Improvement in portal venous gas. No evidence for pneumoperitoneum. Layering stones versus sludge in the gallbladder lumen. Small amount of perihepatic fluid. There is also moderate fluid in the lesser sac. Redemonstration of large
sacral decubitus ulcer. There is absence of the distal aspect of the sacrum and coccyx; this is without change. Anasarca. Kidneys do not excrete contrast material. This is consistent with known renal failure. Hepatomegaly. No focal hepatic lesion.
What likely represents pneumonia in the lower lobes noted. This is stable on the left, and worse on the right.

Assessment/Plan
Sepsis/bacteremia, POA
Enterococcus faecalis bacteremia
HD cath was potential source of bacteremia
-likely due to ischemic bowel (imaging above), less likely PNA
-s/p 30cc/kg NS bolus, BPs improved
-Blood cultures with enterococcus
-Continue Vanco (IV and PO as C diff Ag POS in the past) -- continue IV vancomycin to be given post HD plan 6 week course 12/13/24-01/23/25. Completed Meropenem course.
-Surgery saw in c/s
-Case discussed with Dr. Peters over [employer] on 12/15/24. He is not recommending surgery and is recommending hospice.
-Quoted from Dr. Peters's progress note 12/15/24, 'Discussed GOC with . Rec DNR/DNI status. Discussed hospice briefly as well. His imaging shows improvement and he remains stable overall. His exam is limited but appears benign. Advised he is
high risk for surgery. Discussed concern for extensive bowel involvement, which if it does not improve, may make surgical management futile. She verbalized understanding.'
-TFs resumed
-IJ pulled with POS BCxs
-Since blood cultures are no growth at 72 hours can replace the permanent line --> IR can replace temporary line with permanent (tunneled) line today 12/23/24
-No need for PICC line -- discussed with ID since Vanco will given with dialysis
-follow serial BCxs
Acute blood loss anemia due to acute rectal bleeding
CT with concern for bowel ischemia with portal gas cannot rule out underlying mass
-exacerbated by Eliquis which remains on hold (and I honestly do not see how Eliquis could safely be restarted)
-blood return with rectal tube placement in ER
-status post 1 unit pRBCs
-trend Hgb
-Continue Protonix BID and continue Carafate BID
-GI saw in consult
Other Problems:
Hyponatremia: Stable
Stage 4 sacral pressure ulcer: wound care following
Recent severe erosive gastritis (no H. pylori on recent path)
PAF: Holding Eliquis
ESRD on HD: renal following for HD (M/W/F).
h/o chronic Diarrhea
h/o C Diff carrier status (Ag POS) -- continue C. diff prophylaxis with enteric Vanco 125mg daily through 01/01/25
Dysphagia: on PEG feeds [employer]
h/o CVA with residual aphasia and paraplegia (was cared for [facility])
Bedbound status
Hepatosplenomegaly
#Recent acute Urinary retention(2liters) required Wellington catheter on discharge
#Acute urinary retention
#Phimosis
#Difficult Wellington Catheter
-I communicated via [place] Text on 12/21/[address] Garsia who stated that the Wellington catheter was requested initially to monitor urine output, and:
-The Wellington was removed on 12/21/24 and an external condom catheter applied and Dr. Garsia advised this
Pt is critically ill with multiple, severe, active comorbidities. Dr. Olsen discussed this at length with the pt's significant other over the phone 12/14 and 12/15 and recommended hospice. Palliative care following. Ultimately care is futile. At
this time pt's significant other continues to want restorative/aggressive care.
FULL Code
DVT proph: Pt has been on SCDs. With stability of Hgb, Heparin SC previously started and monitored closely for recurrent bleeding.
More than 30 minutes spent in discharge including
Final examination of the patient
Summarizing hospital stay
Instructions for continuing care to all relevant caregivers
Preparation of discharge records, prescriptions, and referral forms
Total time spent (in minutes): 45
Anticipated Discharge: Today
Subjective/Interval History
-
Date of Service: December 23, 2024
Patient was seen and examined. No new significant issues or events reported.
Objective Data
-
Vital Signs:
Vital Signs
Temp Pulse Resp BP Pulse Ox
98.4 F 90 17 125/63 95
12/23/24 07:34 12/23/24 09:00 12/23/24 09:00 12/23/24 09:00 12/23/24 09:09
I&O
12/22/24 12/23/24 12/24/24
06:59 06:59 06:59
Intake Total 1010 / 1010 1010 / 1010
Output Total 120 / 120 0 / 0
Balance 890 / 890 1010 / 1010
--- NOTE | 2024-12-23 16:07 | W.PN.NEPH.PH ---
Today's Communication / Plan
-
Dialysis tomorrow
Assessment/Plan
-
IMP:
Acute blood loss anemia 2/2 GIB on anemia of chronic disease 2/2 ESRD
Diarrhea
Hx of recent C.diff
Leukocytosis
ESRD on HD-MWF [facility]
left UE AVF
right chest wall catheter
Mild hypokalemia
Dysphagia on PEG
Hx of CVA with residual aphasia and paraplegia
Urine retention
NIDDM
Plan:
Patient now with temporary dialysis cath
Continue dialysis per family request
Antibiotics per ID
soft BP, monitor
GI follows suspected to have ischemic bowel
hgb decreasing, prn transfusion
poor prognosis
Persistent bacteremia Enterococcus/discussed with infectious disease will remove dialysis catheter = removed 12/17
Surveillance cultures negative from 12/19/2024
For PermCath
HD tomorrow if still here

-
-
Date of Service: December 23, 2024
CC / HPI / ROS
-
Chief Complaint:
ESRD,
History of Present Illness:
ESRD chronic MWF
on Vanco for ESBL enterococcal bacteremia
Anemia persist
WBC remain high 18.2k
Review of Systems:
No fevers
Nonverbal
Labs
-
Labs:
WBC 12.0 10^3/uL (4.8-10.8) H 12/22/24 12:45
RBC 2.93 10^6/uL (4.70-6.10) L 12/22/24 12:45
Hgb 7.9 g/dL (13.0-18.0) L 12/22/24 12:45
Hct 26.8 % (39.0-52.0) L 12/22/24 12:45
Plt Count 311 10^3/uL (130-400) 12/22/24 12:45
Sodium 132 mmol/L (135-145) L 12/22/24 12:45
Potassium 3.6 mmol/L (3.5-5.1) 12/22/24 12:45
Chloride 99 mmol/L (98-107) 12/22/24 12:45
Carbon Dioxide 30 mmol/L (22-30) 12/22/24 12:45
BUN 32 mg/dl (9-20) H 12/22/24 12:45
Creatinine 2.2 mg/dL (0.7-1.3) H 12/22/24 12:45
eGFR 33.66 12/22/24 12:45
Glucose 129 mg/dl (70-99) H 12/22/24 12:45
Calcium 8.1 mg/dl (8.4-10.2) L 12/22/24 12:45
Albumin 2.2 g/dl (3.5-5.0) L 12/15/24 04:30
Physical Exam
-
Vital Signs:
Vital Signs
Temp Pulse Resp BP Pulse Ox
98.4 F 80 12 121/66 97
12/23/24 14:10 12/23/24 15:22 12/23/24 15:22 12/23/24 15:22 12/23/24 14:10
--- NOTE | 2024-12-23 17:31 | PTCARENOTE ---
Assumed care of patient this morning. Pt able to open eyes and will nod head yes/no but patient will repeat same answers regardless of questions therefore not reliable. Pt occasionally following commands. Patient allowing oral care today, previously
was biting toothbrush. Wound care provided by student nurse today. TF restarted once patient came back from getting HD cath in IR. All vital signs stable. Assessment, care and VS as charted.
--- NOTE | 2024-12-23 18:02 | CM ---
F/U: EVGENY Sullivan was told that patient is ready. Patient went for a PermCath to be replaced then was ready in the afternoon. EVGENY Sullivan had already faxed over HEP B report, IV Abx via dialysis, and Dialysis report to [facility].
Transport arranged for 19:30, then GF was notified who refused for him to return and wants him to go home with her [place] the following [place]
[facility] [place]
Needing the following set up:
Outpatient dialysis (have to find a place that will provide stretcher dialysis- most places provide chair dialysis)
Tube Feed set up
Hospital Bed
Kaye Lift
Chucks/ and wipes
Air Mattress
Home VN for sacral wound
Outpatient dialysis is the first that needs to be arranged. EVGENY Sullivan gathered several documents and completed intake form for [facility] ([facility]) then faxed it to the main intake for [facility] to review and assist with finding a place . [facility] aware
of this plan.
PLAN: Home with multiple services
[2024-12-23] MEDS: CARAFATE SUSPENSION TUBE (20:01)
[2024-12-24] VITALS (7 sets, daily range): BP systolic 118–167; BP diastolic 52–79; BMI 28.7
--- NOTE | 2024-12-24 07:00 | PTCARENOTE ---
Pt transferred to [id number] with all belongings.
--- NOTE | 2024-12-24 08:29 | PTCARENOTE ---
Unable to give morning medications due to HD
--- NOTE | 2024-12-24 08:34 | VATNOTE ---
Pt receiving dialysis at time of assessment, HD RN to do dressing change on HD catheter.
[2024-12-24] MEDS: MANNITOL 25% 12.5 GRAMS IV ×2 (09:10→10:08)
--- NOTE | 2024-12-24 09:10 | W.PN.NEPH.HD ---
Assessment
-
Patient seen on dialysis
Systolic blood pressure at 74
Will provide 50 mg midodrine p.o. x 1
Dialysis through tunneled catheter
Progress Note - Hemodialysis
-
Date of Service: December 24, 2024
Duration: 30 minutes and 3 hours
Potassium Bath: 4
Calcium Bath: 2.5
Opti-Dialyzer: 160
Ultrafiltration: Other
Blood Flow: 400
Dialysate Flow: 600
Heparin: None
EPO: 10,000
[2024-12-24] MEDS: RETACRIT 10000 UNITS IV (09:12)
--- NOTE | 2024-12-24 09:28 | PHA.VAN.FU ---
Vancomycin Assessment / Plan
- Assessment
Hemodialysis Schedule: MWF
Last Hemodialysis performed: today, Sunday 12/24
In the past 24 hrs, patient has been: Afebrile
Concomitant Antimicrobials: vancomycin PO
- Assessment - Therapeutic Drug Monitoring
Random Level: pre-HD = 17.5
- Dosing Plan
Continue: Vanc 750mg HD MWF
- Monitoring Plan
No level(s) ordered at this time: consider weekly levels on Mondays
- Follow Up
Pharmacy will continue to follow.
Vancomycin Follow UP
- -
Patient Age: 59
Patient Sex: Male
Vancomycin Day #: 10
Indication: Gi / Intra-Abdominal
Requesting Provider: Dr. Olsen / Eddi
Pertinent Antimicrobial Allergies:
NKDA
Height / Weight:
Height 5 ft 9 in
Actual Weight 88.167 kg
Pertinent Past Medical History: ESRD - HD, paraplegia, BMI: 28
- Vital Signs / Lab Results
Temp Pulse Resp BP Pulse Ox
97.9 F 87 18 148/67 100
12/24/24 07:04 12/24/24 07:04 12/24/24 07:04 12/24/24 07:04 12/24/24 07:04
Lab Results - Hematology
12/21/24 12/22/24
18:06 12:45
WBC Cancelled 12.0 H
Lab Results - Chemistry
12/21/24 12/22/24
18:06 12:45
BUN Cancelled 32 H
Creatinine Cancelled 2.2 H
Estimated Creat Clear Cancelled 36
Microbiology Results
12/19/24 10:24 Blood Culture - Preliminary
Blood/Venous No Growth in 4 days- Final report to follow
12/18/24 10:11 Blood Culture - Final
Blood/Venous No Growth - Final Report
12/17/24 05:58 Blood Culture - Final
Blood/Venous No Growth - Final Report
Therapeutic Drug Monitoring
Random Vancomycin 17.5 ug/ml 12/24/24 08:10
[2024-12-24 09:47] LABS: Hematocrit 24.5 % (39.0-52.0); Hemoglobin 7.3 g/dL (13.0-18.0); Mean Corp Hgb Conc. 29.8 g/dL (33.0-37.0); Mean Corpuscular Volume 89.1 fL (80.0-94.0); Platelet Count 256 10^3/uL (130-400); Red Cell Dist. Width 18.1 % (11.5-14.5)
[2024-12-24 10:11] LABS: Blood Urea Nitrogen 31 mg/dl (9-20); Calcium 8.2 mg/dl (8.4-10.2); Carbon Dioxide 30 mmol/L (22-30); Chloride 99 mmol/L (98-107); Estimated Creatinine Clearance 35 ml/min; Glucose 96 mg/dl (70-99); Potassium 3.3 mmol/L (3.5-5.1); Sodium 132 mmol/L (135-145); eGFR 31.91
[2024-12-24] MEDS: VANCOCIN 150 IV (10:54)
[2024-12-24] MEDS: PROTONIX IV 40 MG IV ×2 (12:47→20:28)
[2024-12-24] MEDS: ULTRAM 50 MG TUBE ×2 (12:47→20:32)
[2024-12-24] MEDS: CARAFATE SUSPENSION 1 GM TUBE ×2 (12:48→20:25)
[2024-12-24] MEDS: TYLENOL 650 MG TUBE (12:48)
[2024-12-24] MEDS: NSS (PRESERVATIVE FREE) 10 ML IV ×2 (12:48→20:28)
[2024-12-24] MEDS: ZOLOFT 25 MG TUBE (12:48)
[2024-12-24] MEDS: ZYLOPRIM 100 MG TUBE (12:49)
[2024-12-24] MEDS: HEPARIN 5000 UNITS SC (12:49)
[2024-12-24] MEDS: DESENEX/MITRAZOL/ZEASORB 1 APPLIC TOPICAL ×2 (12:53→20:25)
[2024-12-24] MEDS: DAKIN'S SOLUTION 0.125% 1/4 STRENGTH 473 ML TOPICAL (12:53)
[2024-12-24] MEDS: HEPARIN SC ×3 (13:41→20:53)
[2024-12-24] MEDS: CARAFATE SUSPENSION TUBE (13:41)
[2024-12-24] MEDS: NSS (PRESERVATIVE FREE) IV (13:41)
[2024-12-24] MEDS: ZOLOFT TUBE (13:42)
[2024-12-24] MEDS: ZYLOPRIM TUBE (13:42)
[2024-12-24] MEDS: PROTONIX IV IV (13:42)
[2024-12-24] MEDS: ULTRAM TUBE (13:42)
[2024-12-24] MEDS: MYCOSTATIN ORAL SUSPENSION PO ×4 (13:44→22:28)
--- NOTE | 2024-12-24 14:56 | W.PN.HOSP.TC ---
Today's Communication/Plan
-
Placement arrangements pending
Assessment / Plan
Assessment / Plan
Physical Exam
Gen: Not in acute distress
HEENT: Normocephalic
Neck: Supple
CV: RRR, +S1/S2
Resp: CTAB anteriorly
Abd: +BS, soft, NT, ND
Skin: Warm. Dry. no LE edema
Neuro: continues to remain CN 2-12 intact, unable to participate in neurological exam
Psych: Calm

12/17/24 12:48 Blood/Venous Blood Culture - Preliminary
Positive culture in progress
12/17/24 12:48 Blood/Venous Gram Stain - Preliminary
12/17/24 05:58 Blood/Venous Blood Culture - Preliminary
No Growth in 48 hours- Final report to follow
12/13/24 21:05 Blood/Venous Blood Culture - Final
No Growth - Final Report
12/15/24 17:08 Blood/Venous Blood Culture - Preliminary
Enterococcus faecalis
12/15/24 17:08 Blood/Venous Gram Stain - Preliminary
12/13/24 21:05 Blood/Venous Blood Culture - Preliminary
Enterococcus faecalis
12/13/24 21:05 Blood/Venous Gram Stain - Preliminary
12/15/24 17:08 Blood/Venous Blood Culture - Preliminary
Enterococcus faecalis
12/15/24 17:08 Blood/Venous Gram Stain - Preliminary
12/13/24 21:05 Feces/Stool Salmonella/Shigella Culture - Final
No Salmonella, Shigella, Aeromonas or Plesiomonas species
isolated.
12/13/24 21:05 Feces/Stool Campylobacter Culture - Final
No Campylobacter species isolated.
12/13/24 21:05 Feces/Stool Shiga Toxin Test - Final
No E. coli Shiga Toxin 1 or 2 detected.
12/14/24 15:01 Nose MRSA Screen - Final
Staph aureus MRSA
12/13/24 21:05 Feces/Stool C. difficile GDH Antigen & Toxins - Final
Negative for toxigenic C.difficile
CT A/P w/IV: Diffuse bowel wall thickening and portal venous gas suggestive of possible ischemic bowel. No evidence for bowel perforation at this time. Thickening of the ascending colon likely inflammatory or ischemic in etiology; however, recommend
correlation with colonoscopy to rule out underlying mass. Large sacral decubitus ulcer as described. Bilateral lower lobe pneumonia, progressed.
CT A/P with PO/IV: Redemonstration of extensive small bowel wall thickening and wall thickening of the ascending colon. There is also mild circumferential wall thickening of proximal to mid transverse colon. This is worrisome for ischemic bowel, as
noted previously. Improvement in portal venous gas. No evidence for pneumoperitoneum. Layering stones versus sludge in the gallbladder lumen. Small amount of perihepatic fluid. There is also moderate fluid in the lesser sac. Redemonstration of large
sacral decubitus ulcer. There is absence of the distal aspect of the sacrum and coccyx; this is without change. Anasarca. Kidneys do not excrete contrast material. This is consistent with known renal failure. Hepatomegaly. No focal hepatic lesion.
What likely represents pneumonia in the lower lobes noted. This is stable on the left, and worse on the right.

Assessment/Plan
Sepsis/bacteremia, POA
Enterococcus faecalis bacteremia
HD cath was potential source of bacteremia
-likely due to ischemic bowel (imaging above), less likely PNA
-s/p 30cc/kg NS bolus, BPs improved
-Blood cultures with enterococcus
-Continue Vanco (IV and PO as C diff Ag POS in the past) -- continue IV vancomycin to be given post HD plan 6 week course 12/13/24-01/23/25. Completed Meropenem course.
-Surgery saw in c/s
-Case discussed with Dr. Peters over [employer] on 12/15/24. He is not recommending surgery and is recommending hospice.
-Quoted from Dr. Peters's progress note 12/15/24, 'Discussed GOC with . Rec DNR/DNI status. Discussed hospice briefly as well. His imaging shows improvement and he remains stable overall. His exam is limited but appears benign. Advised he is
high risk for surgery. Discussed concern for extensive bowel involvement, which if it does not improve, may make surgical management futile. She verbalized understanding.'
-TFs resumed
-IJ pulled with POS BCxs
-Since blood cultures are no growth at 72 hours can replace the permanent line --> IR replaced temporary line with permanent (tunneled) line on 12/23/24
-No need for PICC line -- discussed with ID since Vanco will given with dialysis
-follow serial BCxs
Acute blood loss anemia due to acute rectal bleeding
CT with concern for bowel ischemia with portal gas cannot rule out underlying mass
-exacerbated by Eliquis which remains on hold (and I honestly do not see how Eliquis could safely be restarted)
-blood return with rectal tube placement in ER
-status post 1 unit pRBCs
-trend Hgb
-Continue Protonix BID and continue Carafate BID
-GI saw in consult
Other Problems:
Hyponatremia: Stable
Stage 4 sacral pressure ulcer: wound care following
Recent severe erosive gastritis (no H. pylori on recent path)
PAF: Holding Eliquis
ESRD on HD: renal following for HD (M/W/F).
h/o chronic Diarrhea
h/o C Diff carrier status (Ag POS) -- continue C. diff prophylaxis with enteric Vanco 125mg daily through 01/01/25
Dysphagia: on PEG feeds [employer]ING WHEEL [employer]PER[employer]
h/o CVA with residual aphasia and paraplegia (was cared for [facility])
Bedbound status
Hepatosplenomegaly
#Recent acute Urinary retention(2liters) required Wellington catheter on discharge
#Acute urinary retention
#Phimosis
#Difficult Wellington Catheter
-I communicated via [place] Text on 12/21/[address] Garsia who stated that the Wellington catheter was requested initially to monitor urine output, and:
-The Wellington was removed on 12/21/24 and an external condom catheter applied and Dr. Garsia advised this
Pt is critically ill with multiple, severe, active comorbidities. Dr. Olsen discussed this at length with the pt's significant other over the phone 12/14 and 12/15 and recommended hospice. Palliative care following. Ultimately care is futile. At
this time pt's significant other continues to want restorative/aggressive care.
FULL Code
DVT proph: Pt has been on SCDs. With stability of Hgb, Heparin SC previously started and monitored closely for recurrent bleeding.
Patient's Key does not want patient to go back to [facility]. She wants patient to go home. Case management is working on it.
Anticipated Discharge: > 48 hours
Subjective/Interval History
-
Date of Service: December 24, 2024
Patient was seen and examined. No new significant symptoms or events.
Objective Data
-
Labs:
Laboratory Results
12/24/24
09:28
WBC 14.2 H
Hgb 7.3 L
Hct 24.5 L
Plt Count 256
Sodium 132 L
Potassium 3.3 L
Chloride 99
Carbon Dioxide 30
BUN 31 H
Creatinine 2.3 H
Glucose 96
Calcium 8.2 L
Vital Signs:
Vital Signs
Temp Pulse Resp BP Pulse Ox
97.1 F 77 12 119/61 100
12/24/24 11:00 12/24/24 11:00 12/24/24 11:00 12/24/24 11:00 12/24/24 11:00
I&O
12/23/24 12/24/24 12/25/24
06:59 06:59 06:59
Intake Total 1010 / 1010 855 / 855
Output Total 0 / 0 0 / 0
Balance 1010 / 1010 855 / 855
[2024-12-24] MEDS: FIRVANQ 125 MG TUBE (15:31)
[2024-12-24] MEDS: DAKIN'S SOLUTION 0.125% 1/4 STRENGTH 1 ML TOPICAL (20:26)
[2024-12-25 03:23] VITALS: BP 141/67
[2024-12-25 06:00] VITALS: BMI 28.6
[2024-12-25 07:00] VITALS: BP 140/58
--- NOTE | 2024-12-25 07:56 | PHA.VAN.FU ---
Vancomycin Assessment / Plan
- Assessment
Hemodialysis Schedule: MWF
Last Hemodialysis performed: Friday, 12/24
WBC's are: WNL
In the past 24 hrs, patient has been: Afebrile
Concomitant Antimicrobials: vancomycin po
- Dosing Plan
Continue: Vanc 750 mg HD MWF
- Monitoring Plan
No level(s) ordered at this time: consider weekly levels on Mondays
- Follow Up
Pharmacy will continue to follow.
Vancomycin Follow UP
- -
Patient Age: 59
Patient Sex: Male
Vancomycin Day #: 11
Indication: Gi / Intra-Abdominal
Requesting Provider: Dr. Olsen / Eddi
Pertinent Antimicrobial Allergies:
NKDA
Height / Weight:
Height 5 ft 9 in
Actual Weight 87.685 kg
Pertinent Past Medical History: ESRD - HD, paraplegia, BMI: 28
- Vital Signs / Lab Results
Temp Pulse Resp BP Pulse Ox
97.9 F 87 16 141/67 100
12/25/24 03:23 12/25/24 03:23 12/25/24 03:23 12/25/24 03:23 12/25/24 03:23
Lab Results - Hematology
12/22/24 12/24/24
12:45 09:28
WBC 12.0 H 14.2 H
Lab Results - Chemistry
12/22/24 12/24/24
12:45 09:28
BUN 32 H 31 H
Creatinine 2.2 H 2.3 H
Estimated Creat Clear 36 35
Microbiology Results
12/19/24 10:24 Blood Culture - Final
Blood/Venous No Growth - Final Report
12/18/24 10:11 Blood Culture - Final
Blood/Venous No Growth - Final Report
Therapeutic Drug Monitoring
Random Vancomycin 17.5 ug/ml 12/24/24 08:10
--- NOTE | 2024-12-25 08:14 | W.PN.HOSP.TC ---
Today's Communication/Plan
-
Placement pending
Assessment / Plan
Assessment / Plan
Physical Exam
Gen: Not in acute distress
HEENT: Normocephalic
Neck: Supple
CV: RRR, +S1/S2
Resp: CTAB anteriorly
Abd: +BS, soft, NT, ND
Skin: Warm. Dry. no LE edema
Neuro: continues to remain CN 2-12 intact, unable to participate in neurological exam
Psych: Calm

12/17/24 12:48 Blood/Venous Blood Culture - Preliminary
Positive culture in progress
12/17/24 12:48 Blood/Venous Gram Stain - Preliminary
12/17/24 05:58 Blood/Venous Blood Culture - Preliminary
No Growth in 48 hours- Final report to follow
12/13/24 21:05 Blood/Venous Blood Culture - Final
No Growth - Final Report
12/15/24 17:08 Blood/Venous Blood Culture - Preliminary
Enterococcus faecalis
12/15/24 17:08 Blood/Venous Gram Stain - Preliminary
12/13/24 21:05 Blood/Venous Blood Culture - Preliminary
Enterococcus faecalis
12/13/24 21:05 Blood/Venous Gram Stain - Preliminary
12/15/24 17:08 Blood/Venous Blood Culture - Preliminary
Enterococcus faecalis
12/15/24 17:08 Blood/Venous Gram Stain - Preliminary
12/13/24 21:05 Feces/Stool Salmonella/Shigella Culture - Final
No Salmonella, Shigella, Aeromonas or Plesiomonas species
isolated.
12/13/24 21:05 Feces/Stool Campylobacter Culture - Final
No Campylobacter species isolated.
12/13/24 21:05 Feces/Stool Shiga Toxin Test - Final
No E. coli Shiga Toxin 1 or 2 detected.
12/14/24 15:01 Nose MRSA Screen - Final
Staph aureus MRSA
12/13/24 21:05 Feces/Stool C. difficile GDH Antigen & Toxins - Final
Negative for toxigenic C.difficile
CT A/P w/IV: Diffuse bowel wall thickening and portal venous gas suggestive of possible ischemic bowel. No evidence for bowel perforation at this time. Thickening of the ascending colon likely inflammatory or ischemic in etiology; however, recommend
correlation with colonoscopy to rule out underlying mass. Large sacral decubitus ulcer as described. Bilateral lower lobe pneumonia, progressed.
CT A/P with PO/IV: Redemonstration of extensive small bowel wall thickening and wall thickening of the ascending colon. There is also mild circumferential wall thickening of proximal to mid transverse colon. This is worrisome for ischemic bowel, as
noted previously. Improvement in portal venous gas. No evidence for pneumoperitoneum. Layering stones versus sludge in the gallbladder lumen. Small amount of perihepatic fluid. There is also moderate fluid in the lesser sac. Redemonstration of large
sacral decubitus ulcer. There is absence of the distal aspect of the sacrum and coccyx; this is without change. Anasarca. Kidneys do not excrete contrast material. This is consistent with known renal failure. Hepatomegaly. No focal hepatic lesion.
What likely represents pneumonia in the lower lobes noted. This is stable on the left, and worse on the right.

Assessment/Plan
Sepsis/bacteremia, POA
Enterococcus faecalis bacteremia
HD cath was potential source of bacteremia
-likely due to ischemic bowel (imaging above), less likely PNA
-s/p 30cc/kg NS bolus, BPs improved
-Blood cultures with enterococcus
-Continue Vanco (IV and PO as C diff Ag POS in the past) -- continue IV vancomycin to be given post HD plan 6 week course 12/13/24-01/23/25. Completed Meropenem course.
-Surgery saw in c/s
-Case discussed with Dr. Peters over [employer] on 12/15/24. He is not recommending surgery and is recommending hospice.
-Quoted from Dr. Peters's progress note 12/15/24, 'Discussed GOC with . Rec DNR/DNI status. Discussed hospice briefly as well. His imaging shows improvement and he remains stable overall. His exam is limited but appears benign. Advised he is
high risk for surgery. Discussed concern for extensive bowel involvement, which if it does not improve, may make surgical management futile. She verbalized understanding.'
-TFs resumed
-IJ pulled with POS BCxs
-Since blood cultures are no growth at 72 hours can replace the permanent line --> IR replaced temporary line with permanent (tunneled) line on 12/23/24
-No need for PICC line -- discussed with ID since Vanco will given with dialysis
-follow serial BCxs
Acute blood loss anemia due to acute rectal bleeding
CT with concern for bowel ischemia with portal gas cannot rule out underlying mass
-exacerbated by Eliquis which remains on hold (and I honestly do not see how Eliquis could safely be restarted)
-blood return with rectal tube placement in ER
-status post 1 unit pRBCs
-trend Hgb
-Continue Protonix BID and continue Carafate BID
-GI saw in consult
Other Problems:
Hyponatremia: Stable
Stage 4 sacral pressure ulcer: wound care following
Recent severe erosive gastritis (no H. pylori on recent path)
PAF: Holding Eliquis
ESRD on HD: renal following for HD (M/W/F).
h/o chronic Diarrhea
h/o C Diff carrier status (Ag POS) -- continue C. diff prophylaxis with enteric Vanco 125mg daily through 01/01/25
Dysphagia: on PEG feeds [employer] DES[employer]
h/o CVA with residual aphasia and paraplegia (was cared for [facility])
Bedbound status
Hepatosplenomegaly
#Recent acute Urinary retention(2liters) required Wellington catheter on discharge
#Acute urinary retention
#Phimosis
#Difficult Wellington Catheter
-I communicated via [employer] on 12/21/[address] Garsia who stated that the Wellington catheter was requested initially to monitor urine output, and:
-The Wellington was removed on 12/21/24 and an external condom catheter applied and Dr. Garsia advised this
Pt is critically ill with multiple, severe, active comorbidities. Dr. Olsen discussed this at length with the pt's significant other over the phone 12/14 and 12/15 and recommended hospice. Palliative care following. Ultimately care is futile. At
this time pt's significant other continues to want restorative/aggressive care.
FULL Code
DVT proph: Pt has been on SCDs. With stability of Hgb, Heparin SC previously started and monitored closely for recurrent bleeding.
Patient's Key does not want patient to go back to [facility]. She wants patient to go home. Case management is working on it.
Anticipated Discharge: > 48 hours
Subjective/Interval History
-
Date of Service: December 25, 2024
Patient was seen and examined. No new significant changes.
Objective Data
-
Vital Signs:
Vital Signs
Temp Pulse Resp BP Pulse Ox
97.9 F 87 16 141/67 100
12/25/24 03:23 12/25/24 03:23 12/25/24 03:23 12/25/24 03:23 12/25/24 03:23
I&O
12/24/24 12/25/24 12/26/24
06:59 06:59 06:59
Intake Total 855 / 855 800 / 800
Output Total 0 / 0 1500 / 1500
Balance 855 / 855 -700 / -700
[2024-12-25] MEDS: ULTRAM 50 MG TUBE ×2 (08:49→20:46)
[2024-12-25] MEDS: FIRVANQ 125 MG TUBE (08:57)
[2024-12-25] MEDS: ZOLOFT 25 MG TUBE (09:10)
[2024-12-25] MEDS: TYLENOL 650 MG TUBE (09:10)
[2024-12-25] MEDS: ZYLOPRIM 100 MG TUBE (09:11)
[2024-12-25] MEDS: PROTONIX IV 40 MG IV ×2 (09:12→20:46)
[2024-12-25] MEDS: NSS (PRESERVATIVE FREE) 10 ML IV ×2 (09:12→20:47)
[2024-12-25] MEDS: CARAFATE SUSPENSION 1 GM TUBE ×2 (09:13→20:46)
[2024-12-25] MEDS: MYCOSTATIN ORAL SUSPENSION PO ×3 (09:13→20:50)
[2024-12-25] MEDS: DAKIN'S SOLUTION 0.125% 1/4 STRENGTH 10 ML TOPICAL (09:14)
[2024-12-25] MEDS: HEPARIN 5000 UNITS SC ×2 (09:14→20:47)
[2024-12-25] MEDS: DESENEX/MITRAZOL/ZEASORB 1 APPLIC TOPICAL ×2 (09:15→20:47)
[2024-12-25 11:00] VITALS: BP 148/61
[2024-12-25 15:00] VITALS: BP 151/60
[2024-12-25 19:46] VITALS: BP 160/74
[2024-12-25] MEDS: DAKIN'S SOLUTION 0.125% 1/4 STRENGTH 473 ML TOPICAL (20:51)
[2024-12-25 23:42] VITALS: BP 155/74
[2024-12-26 03:32] VITALS: BP 148/72
[2024-12-26 06:00] VITALS: BMI 29.3
[2024-12-26 08:00] VITALS: BP 146/76
[2024-12-26] MEDS: ZYLOPRIM 100 MG TUBE (09:23)
[2024-12-26] MEDS: TYLENOL 650 MG TUBE (09:23)
[2024-12-26] MEDS: NSS (PRESERVATIVE FREE) 10 ML IV ×2 (09:24→20:55)
[2024-12-26] MEDS: PROTONIX IV 40 MG IV ×2 (09:24→20:55)
[2024-12-26] MEDS: ZOLOFT 25 MG TUBE (09:25)
[2024-12-26] MEDS: MYCOSTATIN ORAL SUSPENSION PO ×2 (09:25→16:57)
[2024-12-26] MEDS: ULTRAM 50 MG TUBE ×2 (09:27→20:59)
[2024-12-26] MEDS: DESENEX/MITRAZOL/ZEASORB 1 APPLIC TOPICAL ×2 (09:27→20:55)
[2024-12-26] MEDS: CARAFATE SUSPENSION 1 GM TUBE ×2 (09:28→20:54)
[2024-12-26] MEDS: FIRVANQ 125 MG TUBE (09:28)
[2024-12-26] MEDS: HEPARIN 5000 UNITS SC ×2 (09:29→20:54)
[2024-12-26] MEDS: DAKIN'S SOLUTION 0.125% 1/4 STRENGTH 30 ML TOPICAL (09:29)
--- NOTE | 2024-12-26 09:43 | PHA.VAN.FU ---
Vancomycin Assessment / Plan
- Assessment
Hemodialysis Schedule: MWF
WBC's are: Trending Up
In the past 24 hrs, patient has been: Afebrile
Concomitant Antimicrobials: Vancomycin PO
- Dosing Plan
Continue: Vanc 750mg HD MWF
- Monitoring Plan
Random Level: Pre-HD level on Mondays
- Follow Up
Pharmacy will continue to follow.
Vancomycin Follow UP
- -
Patient Age: 59
Patient Sex: Male
Vancomycin Day #: 12
Indication: Gi / Intra-Abdominal
Requesting Provider: Dr. Olsen / Eddi
Pertinent Antimicrobial Allergies:
NKDA
Height / Weight:
Height 5 ft 9 in
Actual Weight 89.868 kg
Pertinent Past Medical History: ESRD - HD, paraplegia, BMI: 28
- Vital Signs / Lab Results
Temp Pulse Resp BP Pulse Ox
97.5 F 95 18 146/76 100
12/26/24 08:00 12/26/24 08:00 12/26/24 08:00 12/26/24 08:00 12/26/24 08:00
Lab Results - Hematology
12/24/24
09:28
WBC 14.2 H
Lab Results - Chemistry
12/24/24
09:28
BUN 31 H
Creatinine 2.3 H
Estimated Creat Clear 35
Microbiology Results
12/19/24 10:24 Blood Culture - Final
Blood/Venous No Growth - Final Report
Therapeutic Drug Monitoring
Random Vancomycin 17.5 ug/ml 12/24/24 08:10
[2024-12-26 11:00] VITALS: BP 119/54
[2024-12-26 15:00] VITALS: BP 121/61
--- NOTE | 2024-12-26 17:49 | W.PN.HOSP.TC ---
Today's Communication/Plan
-
-Per my discussion over the phone on 12/23/24 with patient's Key, she adamantly stated, multiple times, that she does not want patient to go back to [facility]. She wants patient to go home and all necessary arrangements to be made. Case
management is working on it
-Appreciate case management's efforts
-Check AM labs -- now doing labs only on dialysis days to avoid multiple phlebotomy attempts, and patient is a difficult stick for phlebotomy
Assessment / Plan
Assessment / Plan
Physical Exam
Gen: Not in acute distress
HEENT: Normocephalic
Neck: Supple
CV: RRR, +S1/S2
Resp: CTAB anteriorly
Abd: +BS, soft, NT, ND
Skin: Warm. Dry. no LE edema
Neuro: continues to remain CN 2-12 intact, unable to participate in neurological exam
Psych: Calm

12/17/24 12:48 Blood/Venous Blood Culture - Preliminary
Positive culture in progress
12/17/24 12:48 Blood/Venous Gram Stain - Preliminary
12/17/24 05:58 Blood/Venous Blood Culture - Preliminary
No Growth in 48 hours- Final report to follow
12/13/24 21:05 Blood/Venous Blood Culture - Final
No Growth - Final Report
12/15/24 17:08 Blood/Venous Blood Culture - Preliminary
Enterococcus faecalis
12/15/24 17:08 Blood/Venous Gram Stain - Preliminary
12/13/24 21:05 Blood/Venous Blood Culture - Preliminary
Enterococcus faecalis
12/13/24 21:05 Blood/Venous Gram Stain - Preliminary
12/15/24 17:08 Blood/Venous Blood Culture - Preliminary
Enterococcus faecalis
12/15/24 17:08 Blood/Venous Gram Stain - Preliminary
12/13/24 21:05 Feces/Stool Salmonella/Shigella Culture - Final
No Salmonella, Shigella, Aeromonas or Plesiomonas species
isolated.
12/13/24 21:05 Feces/Stool Campylobacter Culture - Final
No Campylobacter species isolated.
12/13/24 21:05 Feces/Stool Shiga Toxin Test - Final
No E. coli Shiga Toxin 1 or 2 detected.
12/14/24 15:01 Nose MRSA Screen - Final
Staph aureus MRSA
12/13/24 21:05 Feces/Stool C. difficile GDH Antigen & Toxins - Final
Negative for toxigenic C.difficile
CT A/P w/IV: Diffuse bowel wall thickening and portal venous gas suggestive of possible ischemic bowel. No evidence for bowel perforation at this time. Thickening of the ascending colon likely inflammatory or ischemic in etiology; however, recommend
correlation with colonoscopy to rule out underlying mass. Large sacral decubitus ulcer as described. Bilateral lower lobe pneumonia, progressed.
CT A/P with PO/IV: Redemonstration of extensive small bowel wall thickening and wall thickening of the ascending colon. There is also mild circumferential wall thickening of proximal to mid transverse colon. This is worrisome for ischemic bowel, as
noted previously. Improvement in portal venous gas. No evidence for pneumoperitoneum. Layering stones versus sludge in the gallbladder lumen. Small amount of perihepatic fluid. There is also moderate fluid in the lesser sac. Redemonstration of large
sacral decubitus ulcer. There is absence of the distal aspect of the sacrum and coccyx; this is without change. Anasarca. Kidneys do not excrete contrast material. This is consistent with known renal failure. Hepatomegaly. No focal hepatic lesion.
What likely represents pneumonia in the lower lobes noted. This is stable on the left, and worse on the right.

Assessment/Plan
Sepsis/bacteremia, POA
Enterococcus faecalis bacteremia
HD cath was potential source of bacteremia
-likely due to ischemic bowel (imaging above), less likely PNA
-s/p 30cc/kg NS bolus, BPs improved
-Blood cultures with enterococcus
-Continue Vanco (IV and PO as C diff Ag POS in the past) -- continue IV vancomycin to be given post HD plan 6 week course 12/13/24-01/23/25. Completed Meropenem course.
-Surgery saw in c/s
-Dr. Olsen discussed case with Dr. Peters over [employer] on 12/15/24. He is not recommending surgery and is recommending hospice.
-Quoted from Dr. Peters's progress note 12/15/24, 'Discussed GOC with . Rec DNR/DNI status. Discussed hospice briefly as well. His imaging shows improvement and he remains stable overall. His exam is limited but appears benign. Advised he is
high risk for surgery. Discussed concern for extensive bowel involvement, which if it does not improve, may make surgical management futile. She verbalized understanding.'
-TFs resumed
-IJ pulled with POS BCxs
-Since blood cultures are no growth at 72 hours can replace the permanent line --> IR replaced temporary line with permanent (tunneled) line on 12/23/24
-No need for PICC line -- discussed with ID: since Vanco will be given with dialysis, no need for PICC line
-Patient is a difficult stick and to avoid multiple attempts at phlebotomy which can be painful for the patient, doing labs on dialysis days now only
-follow serial BCxs
Acute blood loss anemia due to acute rectal bleeding
CT with concern for bowel ischemia with portal gas cannot rule out underlying mass
-exacerbated by Eliquis which remains on hold (and I honestly do not see how Eliquis could safely be restarted)
-blood return with rectal tube placement in ER
-status post 1 unit pRBCs
-trend Hgb
-Continue Protonix BID and continue Carafate BID
-GI saw in consult
Other Problems:
Hyponatremia: Stable
Stage 4 sacral pressure ulcer: wound care following
Recent severe erosive gastritis (no H. pylori on recent path)
PAF: Holding Eliquis
ESRD on HD: renal following for HD (M/W/F).
h/o chronic Diarrhea
h/o C Diff carrier status (Ag POS) -- continue C. diff prophylaxis with enteric Vanco 125mg daily through 01/01/25
Dysphagia: on PEG feeds [employer]
h/o CVA with residual aphasia and paraplegia (was cared for [facility])
Bedbound status
Hepatosplenomegaly
#Recent acute Urinary retention(2liters) required Wellington catheter on discharge
#Acute urinary retention
#Phimosis
#Difficult Wellington Catheter
-I communicated via [employer] on 12/21/[address] Garsia who stated that the Wellington catheter was requested initially to monitor urine output, and:
-The Wellington was removed on 12/21/24 and an external condom catheter applied and Dr. Garsia (urologist) recommended this via [employer] communication
Pt is critically ill with multiple, severe, active comorbidities. Dr. Olsen discussed this at length with the pt's significant other over the phone 12/14 and 12/15 and recommended hospice. Palliative care following. Ultimately care is futile. At
this time pt's significant other continues to want restorative/aggressive care.
FULL Code
DVT Prophylaxis: Pt has been on SCDs. With stability of Hgb, Heparin SC previously started and monitored closely for recurrent bleeding -- continue Heparin subq
Per my discussion over the phone on 12/23/24 with patient's Key, she adamantly stated, multiple times, that she does not want patient to go back to [facility]. She wants patient to go home and all necessary arrangements to be made. Case
management is working on it.
Anticipated Discharge: 24 - 48 hours
Subjective/Interval History
-
Date of Service: December 26, 2024
Patient was seen and examined. No new events or issues.
Objective Data
-
Vital Signs:
Vital Signs
Temp Pulse Resp BP Pulse Ox
97.3 F 82 16 121/61 100
12/26/24 15:00 12/26/24 15:00 12/26/24 15:00 12/26/24 15:00 12/26/24 15:00
I&O
12/25/24 12/26/24 12/27/24
06:59 06:59 06:59
Intake Total 800 / 800 120 / 120
Output Total 1500 / 1500
Balance -700 / -700 120 / 120
[2024-12-26] MEDS: DAKIN'S SOLUTION 0.125% 1/4 STRENGTH 1 ML TOPICAL (20:56)
[2024-12-26] MEDS: MYCOSTATIN ORAL SUSPENSION 10 ML PO (20:59)
[2024-12-26 22:51] VITALS: BP 163/83
[2024-12-27 07:19] LABS: Hematocrit 25.2 % (39.0-52.0); Hemoglobin 7.8 g/dL (13.0-18.0); Mean Corp Hgb Conc. 31.0 g/dL (33.0-37.0); Mean Corpuscular Volume 86.9 fL (80.0-94.0); Platelet Count 262 10^3/uL (130-400); Red Cell Dist. Width 18.2 % (11.5-14.5)
[2024-12-27 07:44] LABS: Blood Urea Nitrogen 45 mg/dl (9-20); Calcium 8.3 mg/dl (8.4-10.2); Carbon Dioxide 30 mmol/L (22-30); Chloride 99 mmol/L (98-107); Estimated Creatinine Clearance 32 ml/min; Glucose 97 mg/dl (70-99); Potassium 4.0 mmol/L (3.5-5.1); Sodium 129 mmol/L (135-145); eGFR 28.87
[2024-12-27 08:04] VITALS: BP 159/71
[2024-12-27] MEDS: CARAFATE SUSPENSION 1 GM TUBE (08:21)
[2024-12-27] MEDS: ULTRAM 50 MG TUBE (08:21)
[2024-12-27] MEDS: TYLENOL 650 MG TUBE (08:21)
[2024-12-27] MEDS: MYCOSTATIN ORAL SUSPENSION 10 ML PO (08:21)
[2024-12-27] MEDS: PROTONIX IV 40 MG IV (08:22)
[2024-12-27] MEDS: NSS (PRESERVATIVE FREE) 10 ML IV (08:23)
[2024-12-27] MEDS: ZOLOFT 25 MG TUBE (08:23)
[2024-12-27] MEDS: ZYLOPRIM 100 MG TUBE (08:23)
[2024-12-27] MEDS: VANCOCIN 150 IV (08:25)
[2024-12-27] MEDS: DAKIN'S SOLUTION 0.125% 1/4 STRENGTH 473 ML TOPICAL (08:33)
[2024-12-27] MEDS: FIRVANQ 125 MG TUBE (08:33)
[2024-12-27] MEDS: DESENEX/MITRAZOL/ZEASORB 1 APPLIC TOPICAL (08:34)
[2024-12-27] MEDS: HEPARIN 5000 UNITS SC (08:34)
--- NOTE | 2024-12-27 09:20 | PHA.VAN.FU ---
Vancomycin Assessment / Plan
- Assessment
Hemodialysis Schedule: MWF
Last Hemodialysis performed: 12/24
WBC's are: Trending Down
In the past 24 hrs, patient has been: Afebrile
Concomitant Antimicrobials: vanco PO
- Assessment - Therapeutic Drug Monitoring
Random Level: pre-HD = 15.6
- Dosing Plan
Continue: Vanc 750mg HD MWF
- Monitoring Plan
Level(s) appropriate: Recheck trough at minimum of weekly intervals, Repeat sooner for changes in renal function or clinical status
Next Level Due (Date): consider weekly levels on
- Follow Up
Pharmacy will continue to follow.
Vancomycin Follow UP
- -
Patient Age: 59
Patient Sex: Male
Vancomycin Day #: 13
Indication: Gi / Intra-Abdominal
Requesting Provider: Dr. Olsen / Eddi
Pertinent Antimicrobial Allergies:
NKDA
Height / Weight:
Height 5 ft 9 in
Actual Weight 89.868 kg
Pertinent Past Medical History: ESRD - HD, paraplegia, BMI: 28
- Vital Signs / Lab Results
Temp Pulse Resp BP Pulse Ox
98.1 F 96 18 159/71 97
12/27/24 08:04 12/27/24 08:04 12/27/24 08:04 12/27/24 08:04 12/27/24 08:04
Lab Results - Hematology
12/24/24 12/27/24
09: 07:04
WBC 14.2 H 12.7 H
Lab Results - Chemistry
12/24/24 12/27/24
09: 07:04
BUN 31 H 45 H
Creatinine 2.3 H 2.5 H
Estimated Creat Clear 35 32
Therapeutic Drug Monitoring
Random Vancomycin 15.6 ug/ml 12/27/24 07:04
[2024-12-27 10:42] LABS: Hepatitis B Surface Antigen Negative (Negative)
--- NOTE | 2024-12-27 12:48 | W.PN.HOSP.TC ---
Today's Communication/Plan
-
d/c
Assessment / Plan
Assessment / Plan
Gen: NAD, AAOx3.
Eyes: EOMI, PERRLA, no scleral icterus.
Neck: supple.
CV: RRR, +S1/S2, no m/r/g.
Resp: CTAB, no rales, wheezes, or rhonchi.
Abd: +BS, soft, NT, ND
Skin: No rashes.
Neuro: CN 2-12 intact, non-focal.
Psych: Normal mood and affect.
12/19/24 10:24 Blood/Venous Blood Culture - Final
No Growth - Final Report
12/18/24 10:11 Blood/Venous Blood Culture - Final
No Growth - Final Report
12/17/24 05:58 Blood/Venous Blood Culture - Final
No Growth - Final Report
12/17/24 12:48 Blood/Venous Blood Culture - Final
Enterococcus faecalis
12/17/24 12:48 Blood/Venous Gram Stain - Final
12/15/24 17:08 Blood/Venous Blood Culture - Final
Enterococcus faecalis
12/15/24 17:08 Blood/Venous Gram Stain - Final
12/15/24 17:08 Blood/Venous Blood Culture - Final
Enterococcus faecalis
12/15/24 17:08 Blood/Venous Gram Stain - Final
12/13/24 21:05 Blood/Venous Blood Culture - Final
Enterococcus faecalis
12/13/24 21:05 Blood/Venous Gram Stain - Final
12/13/24 21:05 Blood/Venous Blood Culture - Final
No Growth - Final Report
12/13/24 21:05 Feces/Stool Salmonella/Shigella Culture - Final
No Salmonella, Shigella, Aeromonas or Plesiomonas species
isolated.
12/13/24 21:05 Feces/Stool Campylobacter Culture - Final
No Campylobacter species isolated.
12/13/24 21:05 Feces/Stool Shiga Toxin Test - Final
No E. coli Shiga Toxin 1 or 2 detected.
12/14/24 15:01 Nose MRSA Screen - Final
Staph aureus MRSA
12/13/24 21:05 Feces/Stool C. difficile GDH Antigen & Toxins - Final
Negative for toxigenic C.difficile
CT A/P w/IV: Diffuse bowel wall thickening and portal venous gas suggestive of possible ischemic bowel. No evidence for bowel perforation at this time. Thickening of the ascending colon likely inflammatory or ischemic in etiology; however, recommend
correlation with colonoscopy to rule out underlying mass. Large sacral decubitus ulcer as described. Bilateral lower lobe pneumonia, progressed.
CT A/P with PO/IV: Redemonstration of extensive small bowel wall thickening and wall thickening of the ascending colon. There is also mild circumferential wall thickening of proximal to mid transverse colon. This is worrisome for ischemic bowel, as
noted previously. Improvement in portal venous gas. No evidence for pneumoperitoneum. Layering stones versus sludge in the gallbladder lumen. Small amount of perihepatic fluid. There is also moderate fluid in the lesser sac. Redemonstration of large
sacral decubitus ulcer. There is absence of the distal aspect of the sacrum and coccyx; this is without change. Anasarca. Kidneys do not excrete contrast material. This is consistent with known renal failure. Hepatomegaly. No focal hepatic lesion.
What likely represents pneumonia in the lower lobes noted. This is stable on the left, and worse on the right.

Assessment/Plan
Sepsis/bacteremia, POA
Enterococcus faecalis bacteremia
HD cath was potential source of bacteremia
-likely due to ischemic bowel (imaging above), less likely PNA
-s/p 30cc/kg NS bolus, BPs improved
-Blood cultures with enterococcus
-Continue Vanco (IV and PO as C diff Ag POS in the past) -- continue IV vancomycin to be given post HD plan 6 week course 12/13/24-01/23/25. Completed Meropenem course.
-Surgery saw in c/s
-Dr. Olsen discussed case with Dr. Peters over [employer] on 12/15/24. He is not recommending surgery and is recommending hospice.
-Quoted from Dr. Peters's progress note 12/15/24, 'Discussed GOC with . Rec DNR/DNI status. Discussed hospice briefly as well. His imaging shows improvement and he remains stable overall. His exam is limited but appears benign. Advised he is
high risk for surgery. Discussed concern for extensive bowel involvement, which if it does not improve, may make surgical management futile. She verbalized understanding.'
-TFs resumed
-IJ pulled with POS BCxs
-Since blood cultures are no growth at 72 hours can replace the permanent line --> IR replaced temporary line with permanent (tunneled) line on 12/23/24
-Patient is a difficult stick and to avoid multiple attempts at phlebotomy which can be painful for the patient, doing labs on dialysis days now only
-follow serial BCxs
Acute blood loss anemia due to acute rectal bleeding
CT with concern for bowel ischemia with portal gas cannot rule out underlying mass
-exacerbated by Eliquis which remains on hold (and I honestly do not see how Eliquis could safely be restarted)
-blood return with rectal tube placement in ER
-status post 1 unit pRBCs
-trend Hgb
-Continue Protonix BID and continue Carafate BID
-GI saw in consult
Other Problems:
Hyponatremia: Stable
Stage 4 sacral pressure ulcer: wound care following
Recent severe erosive gastritis (no H. pylori on recent path)
PAF: Holding Eliquis
ESRD on HD: renal following for HD (M/W/F).
h/o chronic Diarrhea
h/o C Diff carrier status (Ag POS) -- continue C. diff prophylaxis with enteric Vanco 125mg daily through 01/01/25
Dysphagia: on PEG feeds [employer]LL[employer]
h/o CVA with residual aphasia and paraplegia (was cared for [facility])
Bedbound status
Hepatosplenomegaly
#Recent acute Urinary retention(2liters) required Wellington catheter on discharge
#Acute urinary retention
#Phimosis
#Difficult Wellington Catheter
-I communicated via [employer] [employer] on 12/21/[address] Garsia who stated that the Wellington catheter was requested initially to monitor urine output, and:
-The Wellington was removed on 12/21/24 and an external condom catheter applied and Dr. Garsia (urologist) recommended this via [employer] [employer] communication
Pt is critically ill with multiple, severe, active comorbidities. Dr. Olsen discussed this at length with the pt's significant other over the phone 12/14 and 12/15 and recommended hospice. Palliative care following. Ultimately care is futile. At
this time pt's significant other continues to want restorative/aggressive care.
FULL Code
DVT Prophylaxis: Pt has been on SCDs. With stability of Hgb, Heparin SC previously started and monitored closely for recurrent bleeding -- continue Heparin subq
Medically cleared for discharge. Prognosis is dismal.
Total time spent on d/c = 36 min. This included today's physical exam, progress note, review of laboratory and diagnostic data, preparation of discharge documents and prescriptions, and discussions about the pt's hospital course and discharge plan
with the patient and other medical geneticist involved in the patient's care.
Anticipated Discharge: Today
Subjective/Interval History
-
Date of Service: December 27, 2024
Objective Data
-
Labs:
Laboratory Results
12/27/24
07:04
WBC 12.7 H
Hgb 7.8 L
Hct 25.2 L
Plt Count 262
Sodium 129 L
Potassium 4.0
Chloride 99
Carbon Dioxide 30
BUN 45 H
Creatinine 2.5 H
Glucose 97
Calcium 8.3 L
Vital Signs:
Vital Signs
Temp Pulse Resp BP Pulse Ox
98.1 F 96 18 159/71 97
12/27/24 08:04 12/27/24 08:04 12/27/24 08:04 12/27/24 08:04 12/27/24 08:04
I&O
12/26/24 12/27/24 12/28/24
06:59 06:59 06:59
Intake Total 120 / 120 120 / 120
Balance 120 / 120 120 / 120
[2024-12-27] MEDS: RETACRIT 10000 UNITS IV (14:00)
--- NOTE | 2024-12-27 14:12 | W.PN.ID1 ---
Date of Service
Date of Service: December 27, 2024
Today's Communication
- Continue IV vancomycin to be given post HD plan 6 week course 12/13-01/23
Assessment / Plan
# Ischemic bowel. Rectal bleeding resolved.
# Enterococcus faecalis bacteremia 12/13, 12/15, 12/17
# s/p Hypotension from blood loss rectal bleeding
# Leukocytosis persists
# Progression of large Stage IV sacral decubitus, probably underlying osteo. No role for ocean transportation intermediary IV abx (futile).
# Chronic stage IV sacral decubitus wound, too high risk for diverting colostomy
# hx C. diff x 1 (august 2024)
# ESRD on HD via tunneled catheter
# CVA, paraplegia, bed bound, PEG on tube feed
# History of intra-abdominal abscess/necrotizing infection s/p exploratory laparotomy
PLAN:
- Repeat blood x2 12/15 also with e faecalis; BCx 12/18 & 12/19 NGTD
- Echo (12/17) : mild thickening of mitral valve leaflets. No clear evidence of vegetation
- has a new permanent line
- Continue IV vancomycin to be given post HD plan 6 week course 12/13-01/23
- completed meropenem 1g IV q24 (d#7)) for intra-ab coverage and h/o MDRO.
- Continue C. diff prophylaxis with enteric Vanco 125mg daily through 01/01/25.
- Trend wbc.
- stable for dc from ID perspective
Conditions present on admission:
CVA and paraplegia
Dysphagia status post PEG
Atrial fibrillation on Eliquis
HTN
End-stage renal disease on hemodialysis Friday via right IJ PermCath
GIB/erosive gastritis
C. diff x 1 (08/2024)
Chronic sacral decubitus wounds, too high risk for diverting colostomy
Urinary retention with griffiths
Left upper extremity AV fistula placement
History of intra-abdominal abscess/necrotizing infection s/p exploratory laparotomy
Chief Complaint
-: Leukocytosis and Other
Subjective / Review of Systems
afebrile
bp stable
Vital Signs / Physical Exam
Vital Signs
Vital Signs
Temp Pulse Resp BP Pulse Ox
98.1 F 96 18 159/71 97
12/27/24 08:04 12/27/24 08:04 12/27/24 08:04 12/27/24 08:04 12/27/24 08:04
Physical Exam
Constitutional: No Acute Distress
Cardiovascular: Regular Rate and S1/S2; Negative Murmur or Rub
Pulmonary: Clear and Symmetric; Negative Wheezes or Rales
Gastrointestinal: Soft, Non Tender, Non Distended and Normal Bowel Sounds
Skin: Warm and Dry; Negative Rash or Jaundice
Lines: HD Cath
Objective Data
Lab Data
Lab Results
12/27/24 07:04
12/27/24 07:04
PT 20.3 Sec (11.4-14.6) H 12/13/24 20:02
INR 1.72 12/13/24 20:02
APTT 49.0 Sec (23.4-35.0) H 12/13/24 20:02
Estimated Creat Clear 32 ml/min 12/27/24 07:04
Lactic Acid 1.4 mmol/L (0.7-2.0) 12/14/24 00:13
Total Bilirubin 0.9 mg/dl (0.2-1.3) 12/15/24 04:30
AST 19 U/L (17-59) 12/15/24 04:30
ALT 15 U/L (0-50) 12/15/24 04:30
Alkaline Phosphatase 98 U/L (38-126) 12/15/24 04:30
Most recent labs reviewed.
Micro Results:
12/19/24 10:24 Blood Culture - Final
Blood/Venous No Growth - Final Report
12/18/24 10:11 Blood Culture - Final
Blood/Venous No Growth - Final Report
12/17/24 05:58 Blood Culture - Final
Blood/Venous No Growth - Final Report
12/17/24 12:48 Blood Culture - Final
Blood/Venous Enterococcus faecalis
Gram Stain - Final
12/15/24 17:08 Blood Culture - Final
Blood/Venous Enterococcus faecalis
Gram Stain - Final
12/15/24 17:08 Blood Culture - Final
Blood/Venous Enterococcus faecalis
Gram Stain - Final
12/13/24 21:05 Blood Culture - Final
Blood/Venous Enterococcus faecalis
Gram Stain - Final
12/13/24 21:05 Blood Culture - Final
Blood/Venous No Growth - Final Report
12/13/24 21:05 Salmonella/Shigella Culture - Final
Feces/Stool No Salmonella, Shigella, Aeromonas or Plesiomonas species
isolated.
Campylobacter Culture - Final
No Campylobacter species isolated.
Shiga Toxin Test - Final
No E. coli Shiga Toxin 1 or 2 detected.
12/14/24 15:01 MRSA Screen - Final
Nose Staph aureus MRSA
12/13/24 21:05 C. difficile GDH Antigen & Toxins - Final
Feces/Stool Negative for toxigenic C.difficile
Blood Culture Preliminary 12/13/24
Positive for Enterococcus faecalis.
Performed by [employer].
Organism 1 Enterococcus faecalis
1. Enterococcus faecalis
M.I.C. RX
--------- ---
Ampicillin <=2 S
Gentamicin Synergy Screen >500 R
Vancomycin 1 S
Imaging:
12/13/24 CT a/p: Diffuse bowel wall thickening and portal venous gas suggestive of possible ischemic bowel. No evidence for bowel perforation at this time. Thickening of the ascending colon likely inflammatory or ischemic in etiology; however,
recommend correlation with colonoscopy to rule out underlying mass. Bilateral lower lobe pneumonia, progressed. Redemonstration of large midline/right para midline sacral decubitus ulcer at the level of and extending to the sacrococcygeal junction,
progressed from prior with probable chronic erosion of the coccyx. No overt CT evidence for active osteomyelitis of the distal sacrum.
--- NOTE | 2024-12-27 14:27 | CM ---
Addendum entered by Opal Salinas 12/27/24 15:37:
Per POA request- referral faxed to [facility]- [phone]
Addendum entered by Opal Salinas 12/27/24 14:49:
Patient scheduled for 6:00 p.m. LIZETTE Mackey updated/
Original Note:
CM reviewed chart, reviewed with [facility] liaison Susan- came to visit patient.
Per [facility], patient on 15 day MA bed hold, expires tonight at midnight.
CM reviewed with Hospitalist, stable for d/c.
CM spoke with patients Key BAUER with CM Director Destiny Cottrell- discussed unfortunately patient needs are extensive and cannot be set up from hospital for patient to discharge home (tube feeds, dialysis- patient requires stretcher as patient is
bedbound, wound care). CM discussed once patient returns to facility, facility can work with family to transfer patient to another facility verse returning home.
Key requesting patient transfer to [facility]- call to facility- no beds available.
CM spoke with Key, aware if patient does not return to facility, may be financially responsible for continues hospital stay.
Key in agreement for patient to return to facility, will meet patient at [facility]. Requesting patient be discharged with wedges, update to Nurse.
Ambulance transport to be arranged.
CM will continue to follow.
Plan; return to [facility] via ambulance
[facility]
Report: [phone]
--- NOTE | 2024-12-27 14:52 | W.PN.NEPH.HD ---
Assessment
-
Seen on HD. no new issues. VSS, access ok
await dc plan
Progress Note - Hemodialysis
-
Date of Service: December 27, 2024
Duration: 30 minutes and 3 hours
Potassium Bath: 4
Calcium Bath: 2.5
Opti-Dialyzer: 160
Ultrafiltration: Other (2kg)
Blood Flow: 400
Dialysate Flow: 600
Heparin: 0
EPO: [id number] units
[2024-12-27] MEDS: RETACRIT IV (15:00)
[2024-12-27 16:00] VITALS: BP 101/54
--- NOTE | 2024-12-27 16:10 | CM ---
F/U: EVGENY Sullivan got a call from [facility] ([facility] and spoke to a Jes #[phone]. EVGENY Sullivan sent in packet last week before patient went to the floors. EVGENY learned of the new plan via EVGENY Laura so provided this to [facility] Teresa/
Awilda so that now they have a outpatient dialysis unit that can provide stretcher and now can work with GF on a plan for home. PLAN: Now to return to [facility] then work with GF on home discharge.
[2024-12-27] MEDS: MYCOSTATIN ORAL SUSPENSION PO (17:30)
--- NOTE | 2024-12-30 09:50 | W.DCSUMMARY ---
Discharge Summary
Discharge Data
Date of Admission: 12/13/24
Date of Discharge: 12/27/24
Total time spent discharging patient (in min): 32
-
Pending Results: No
Hospital Course
59 y/o male with past medical history of PAF on Eliquis, CVA with residual paraplegia/aphasia, s/p trach with removal, PEG tube placed in Mar 2023 w/ h/o intraabdominal abscess with necrotizing infection requiring multiple surgeries with removal
and replacement of PEG placement (May 2023) and recent change to balloon tube, prior c-diff August 2024 then negative in November 2024, cholelithiasis, NIDDM, CHF, ESRD on Dialysis, hypertension with admission at [facility] 11/02/24- 11/11/24 with
hematemesis with erythematous mucosa on contact on EGD, diarrhea with c-diff infection in summer and adjustment of antidiarrheal medication, urinary retention with griffiths in place with concern for sacral wound and discussion of colonic diversion for
wound management but family declined, and anemia requiring transfusion who came from [facility] with rectal bleeding. Patient's Eliquis was stopped, and he received 1 unit of red blood cells transfusion. He continued to get Protonix and
Carafate. Patient was found to be hypotensive, found to have possible ischemic colitis on CT Imaging, he was given bolus of intravenous fluids, started on broad spectrum antibiotics and transferred to IMU. Infectious Disease and surgeon were
consulted. Nephrology was also consulted for dialysis. Patient was found to have enterococcus faecalis bacteremia, suspected from gut translocation. Patient received Meropenem antibiotics for intraabdominal coverage and history of MDRO. Patient was
continued on C. Diff prophylaxis with oral Vancomycin. Repeat CT imaging 12/14/2024 showed redemonstration of extensive small bowel thickening and wall thickening of the ascending colon and mild circumferential wall thickening of proximal to mid
transverse colon worrisome for ischemic bowel; there was no evidence of pneumoperitoneum and improvement in portal venous gas. Patient was determined to be too ill for colonoscopy. Goals of care discussion took place and patient's clearly
stated she wanted to continue full medical care. Surgery did not recommending surgery and instead recommended hospice; surgeon also had goals of care discussion with patient's ; palliative care team also discussed patient's case with patient's
-- and patient's requested to continue all current medical care and maintain patient as Full Code. Repeat blood cultures were positive, patient's dialysis IJ catheter was pulled and AVF for HD was attempted for dialysis -- but nephrology
mentioned that patient's AVF was unable to be used. Patient was placed on a line holiday, and had a temporary replacement hemodialysis cath placed. Patient was soon deemed appropriate for tube feeds to be resumed. Echocardiogram was done this
hospitalization, given patient's persistent bacteremia, and it showed mild thickening of mitral valve leaflets, but there was no clear evidence of any vegetation. Patient's urinary retention was discussed (given his difficult Griffiths placement) with
on-call urologist who said that Griffiths could be removed and condom catheter placed. Since repeat blood cultures showed no growth in 72 hours, permanent dialysis cath was placed back. There was no need for PICC line given that Infectious Disease
physician mentioned that patient's intravenous Vancomycin could be given with dialysis. Patient's clearly stated that she did not want patient to go back to [facility], but rather she wanted patient to go home. This was discussed with case
management who discussed with patient's that unfortunately patient needs were extensive and could not be set up from hospital for patient to discharge home (tube feeds, dialysis- patient requires stretcher as patient is bedbound, wound care);
case management discussed with patient's that once patient returns to facility, facility can work with family to transfer patient to another facility verse returning home. Patient's ultimately agreed for patient go back to [facility].
Patient would need to be continued on intravenous vancomycin, to be given post hemodialysis -- planned for a 6 week course from 12/13/24 to 01/23/25. Patient would also need to be continued on C. diff prophylaxis with enteric Vancomycin 125mg daily
through 01/01/25.
Discharge Plan
-
Patient Disposition: Usp/SNF
Discharge Diagnosis/Procedures: Sepsis/bacteremia, present on arrival
Enterococcus faecalis bacteremia
Hemodialysis catheter was potential source of bacteremia
Acute blood loss anemia due to acute rectal bleeding
CT with concern for bowel ischemia with portal gas cannot rule out underlying mass
Recent History of Erosive Gastritis
Hyponatremia
Stage 4 sacral pressure ulcer
Sacral and ischial decubitus wounds
Recent severe erosive gastritis (no H. pylori on recent path)
Atrial Fibrillation
ESRD on Hemodialysis
History of chronic Diarrhea
History of C Diff carrier status (Ag POS)
History of C. diff
Dysphagia -- on chronic PEG tube feeds
History of mild relative left-sided 'bulging' of the intestinal tract
History of atrophy of the rectus abdominis musculature
History of CVA with residual aphasia and paraplegia (was cared for at [facility])
History of Trach (previously removed)
Bedbound status
Hepatosplenomegaly
Recent acute Urinary retention (2 liters) required Griffiths catheter on discharge
Acute urinary retention
Phimosis
Difficult Griffiths Catheter -- the Griffiths Catheter was removed on 12/21/24 and an external condom catheter applied and urologist Dr. Garsia advised this
Bilateral atelectasis secondary to bedbound status
History of Minimal ALP elevation
Asymptomatic cholelithiasis
Hepatosplenomegaly
Incidental phleboliths over the pelvis
CT Abdomen/Pelvis 12/13/24 (as per radiologist's report):
'IMPRESSION:
Diffuse bowel wall thickening and portal venous gas suggestive of possible ischemic bowel. No evidence for bowel perforation at this time.
Thickening of the ascending colon likely inflammatory or ischemic in etiology; however, recommend correlation with colonoscopy to rule out underlying mass.
Large sacral decubitus ulcer as described.
Bilateral lower lobe pneumonia, progressed.'
CT Abdomen/Pelvis 12/14/24 (as per radiologist's report):
'IMPRESSION:
Redemonstration of extensive small bowel wall thickening and wall thickening of the ascending colon. There is also mild circumferential wall thickening of proximal to mid transverse colon. This is worrisome for ischemic bowel, as noted previously
Improvement in portal venous gas. No evidence for pneumoperitoneum
Layering stones versus sludge in the gallbladder lumen
Small amount of perihepatic fluid. There is also moderate fluid in the lesser sac
Redemonstration of large sacral decubitus ulcer. There is absence of the distal aspect of the sacrum and coccyx; this is without change.
Anasarca
Kidneys do not excrete contrast material. This is consistent with known renal failure
Hepatomegaly. No focal hepatic lesion.
What likely represents pneumonia in the lower lobes noted. This is stable on the left, and worse on the right'
Condition: Fair
Diet: Tube feeding
Activity: Other activity
Additional Activity: as prior to admission
Driving Restrictions: No driving
Blood Work: CMP, Mg, CBC in 3 days
Activity Restrictions/Additional Instructions:
Wound Care Instructions
Sacral ulcer-clean with 1/4 strength Dakin's, zinc barrier ointment to surrounding skin, pack with 1/4 strength Dakin's moistened Kerlix packing, cover with gauze pads and ABD pads, secure with minimal silicone tape, change bid and prn soilage.
L ischial necrotic ulcer-clean with 1/4 strength Dakin's solution, zinc barrier ointment to periwound skin, honey gel, cover/tuck with gauze pads (no tape), keep absorbant under pad under buttocks, change bid and prn soilage.
No sting skin prep to heels daily.
Elevate heels off bed with pillows or soft heel relief boots.
Air mattress.
Pressure redistributing chair cushion.
Recommend follow up with wound healthcare architect
Referrals:
Scarlett Thompson MD [Family Provider] - in less than 1 week
Referral Note: Hospitalization Follow-Up
Prescriptions:
New
vancomycin 50 mg/mL Recon Soln
125 mg feeding tube DAILY Qty: 80 0RF
Rx Instructions:
Continue oral Vancomycin 125mg daily through 01/01/25
vancomycin in 0.9 % sodium chl 750 mg/150 mL Piggyback
750 mg IV HD-MOWEFR Qty: 900 0RF
Rx Instructions:
To be given post hemodialysis -- 6 week course 12/13/24-01/23/25
Continued
nystatin 100,000 unit/mL Suspension
10 ml buccal TID
acetaminophen [Tylenol] 325 mg Tablet
650 mg feeding tube DAILY
allopurinol 100 mg Tablet
100 mg feeding tube DAILY
tramadol 50 mg Tablet
50 mg feeding tube BID
lorazepam 0.5 mg Tablet
0.5 mg feeding tube BIDPRN PRN (Reason: AXNIETY)
sertraline 25 mg Tablet
25 mg feeding tube DAILY
acetaminophen [Tylenol] 325 mg Tablet
650 mg feeding tube Q6HPRN PRN (Reason: mild pain)
sucralfate 100 mg/mL suspension
1 g feeding tube BID
Rx Instructions:
when feeding is not running
pantoprazole [address] for susp in packet
40 mg feeding tube BID
Discontinued
loperamide 2 mg Capsule
2 mg feeding tube Q8HPRN PRN (Reason: DIARRHEA)
loperamide 2 mg Capsule
4 mg feeding tube BID
bisacodyl [Dulcolax (bisacodyl)] 10 mg Suppository
10 mg NV DAILYPRN PRN (Reason: if no bm aftr sorbitol)
sorbitol 70 % Solution
30 ml PO DAILYPRN PRN (Reason: CONSTIPATION/ VIA PEG TUBE)
Eliquis 5 mg Tablet
5 mg feeding tube BID
Metamucil Free & Natural 43%
1 packet feeding tube DAILY
Discharge Orders:
Discharge Patient (As Directed); Ordered 12/27/24
Ordered By: Temo Olsen
Discharge Date and Time
Discharge Date/Time: 12/27/24 19:19
Print Language: CROATIAN
== END 2024-12-27 19:19 | DRG 871 ==
LOC: 4 WEST ACU 23:29
PROVIDERS: Hospitalist; Internal Medicine; Internal Medicine Infectious Disease; Nurse Practitioner Adult Health; Nurse Practitioner Family; Physician Assistant; Radiology Diagnostic Radiology; Radiology Vascular & Interventional Radiology; Specialist; Student in an Organized Health Care Education/Training Program; ADMITTING PHYSICIAN Internal Medicine; ATTENDING PHYSICIAN Internal Medicine; CONSULT PHYSICIAN Internal Medicine Gastroenterology; CONSULT PHYSICIAN Internal Medicine Nephrology; CONSULT PHYSICIAN Nurse Practitioner Gerontology; CONSULT PHYSICIAN Surgery; EMERGENCY PHYSICIAN Emergency Medicine; FAMILY PHYSICIAN Internal Medicine; OTHER PHYSICIAN Internal Medicine Infectious Disease
PROC: 30233N1 Transfusion of Nonautologous Red Blood Cells into Peripheral Vein, Percutaneous Approach (ICD-10-PCS; 2024-12-14)
PROC: 5A1D70Z Performance of Urinary Filtration, Intermittent, Less than 6 Hours Per Day (ICD-10-PCS; 2024-12-15)
PROC: 0JPV0XZ Removal of Tunneled Vascular Access Device from Upper Extremity Subcutaneous Tissue and Fascia, Open Approach (ICD-10-PCS; 2024-12-17)
PROC: 05HM33Z Insertion of Infusion Device into Right Internal Jugular Vein, Percutaneous Approach (ICD-10-PCS; 2024-12-20)
PROC: 0JH60XZ Insertion of Tunneled Vascular Access Device into Chest Subcutaneous Tissue and Fascia, Open Approach (ICD-10-PCS; 2024-12-23)
DX: A41.81 Sepsis due to Enterococcus (principal); J18.9 Pneumonia, unspecified organism; L89.154 Pressure ulcer of sacral region, stage 4; N18.6 End stage renal disease; R53.2 Functional quadriplegia; T80.211A Bloodstream infection due to central venous catheter, initial encounter; I13.2 Hypertensive heart and chronic kidney disease with heart failure and with stage 5 chronic kidney disease, or end stage renal disease; K55.9 Vascular disorder of intestine, unspecified; D62 Acute posthemorrhagic anemia; E87.1 Hypo-osmolality and hyponatremia; G81.91 Hemiplegia, unspecified affecting right dominant side; I50.9 Heart failure, unspecified; Z99.2 Dependence on renal dialysis; E11.22 Type 2 diabetes mellitus with diabetic chronic kidney disease; I69.320 Aphasia following cerebral infarction; I69.391 Dysphagia following cerebral infarction; L89.309 Pressure ulcer of unspecified buttock, unspecified stage; I48.0 Paroxysmal atrial fibrillation; Z79.01 Long term (current) use of anticoagulants; Z93.1 Gastrostomy status; Z74.01 Bed confinement status; K80.20 Calculus of gallbladder without cholecystitis without obstruction; Y84.8 Other medical procedures as the cause of abnormal reaction of the patient, or of later complication, without mention of misadventure at the time of the procedure; D63.1 Anemia in chronic kidney disease; E87.6 Hypokalemia; I69.365 Other paralytic syndrome following cerebral infarction, bilateral; Z79.899 Other long term (current) drug therapy; Z93.0 Tracheostomy status
CPT/HCPCS: 36556; 36558; 36589; 74018; 74176; 74177; 76937; 77001; 80048; 80053; 80202; 82962; 83605; 85014; 85018; 85025; 85027; 85610; 85730; 86850; 86900; 86901; 86920; 87040; 87045; 87046; 87070; 87077; 87147; 87154; 87186; 87205; 87324; 87340; 87427; 87449; 93005; 93308; 93321; 93325; 99152; 99153; C1752; G0257; J2185; P9016; P9047; Q5106; Q9967

== ENCOUNTER 2025-01-20 19:15 | Emergency (ER) | payer OTHER, SELFPAY ==
[2025-01-20] VITALS (8 sets, daily range): BP systolic 100–140; BP diastolic 48–58; BMI 29.7
[2025-01-20 20:42] LABS: Hematocrit 22.4 % (39.0-52.0); Hemoglobin 6.4 g/dL (13.0-18.0); Mean Corp Hgb Conc. 28.6 g/dL (33.0-37.0); Mean Corpuscular Volume 87.5 fL (80.0-94.0); Nucleated Red Blood Cells % 0 % (-); Platelet Count 264 10^3/uL (130-400); Red Cell Dist. Width 18.0 % (11.5-14.5)
[2025-01-20 20:44] LABS: Blood Urea Nitrogen 36 mg/dl (9-20); Glucose 104 mg/dl (70-99)
[2025-01-20 20:45] LABS: ALT (SGPT) 20 U/L (0-50); AST (SGOT) 22 U/L (17-59); Albumin 2.6 g/dl (3.5-5.0); Alkaline Phosphatase 154 U/L (38-126); Calcium 8.4 mg/dl (8.4-10.2); Carbon Dioxide 32 mmol/L (22-30); Chloride 96 mmol/L (98-107); Estimated Creatinine Clearance 34 ml/min; Potassium 3.7 mmol/L (3.5-5.1); Sodium 133 mmol/L (135-145); Total Protein 6.8 g/dl (6.3-8.2); eGFR 33.66
[2025-01-20 21:00] LABS: Normal RBC Morphology No
[2025-01-20 21:01] LABS: Anisocytosis 2+; Basophilic Stippling 1+; Hypochromasia 2+; Microcytosis 2+; Target Cells 1+
[2025-01-20 21:02] LABS: Stomatocytes 1+
--- NOTE | 2025-01-20 22:54 | ED.GENMED ---
History of Present Illness
General
Chief Complaint: Abnormal Lab Value
Time Seen by Provider: 01/20/25 19:28
History of Present Illness
History of Present Illness:
59-year-old male with complex past medical history including A-fib on Eliquis, CVA with paraplegia and chronic aphasia, PEG tube dependence, prior history of C. difficile, diabetes, CHF, ESRD on hemodialysis [facility], hypertension, chronic sacral wounds
presenting to the emergency department for low hemoglobin. Patient with known history of anemia. Patient had routine blood testing send today, found to have a hemoglobin of 6.1, sent to the ER for further assessment. Patient is a limited
historian, unable to communicate. On review of EMR, recent hospitalization from November, 11/29/10 for hematemesis and concern of GI bleed. Patient also admitted from 12/13 to 12/25, complicated hospital admission for concern of ischemic bowel and
C. difficile colitis. Patient also has known sacral wounds. Patient was treated with IV vancomycin, which she is to receive until 01/23. He was also placed on oral vancomycin until 01/01. No additional concerns provided by nursing facility other
than anemia. Known history of transfusions in the past. No additional history obtained at this time
Phy Exam
Physical Exam
Physical Exam:
General: Well-appearing, no clinical signs of dehydration
HEENT: protecting airway
Neck: appears supple
CV: Normal heart rate, regular rhythm
Resp: No accessory muscle use, no increased work of breathing, lungs clear to auscultation bilaterally
Abd: No distention
Extremities: No deformities, no swelling
Neuro: alert, however aphasic and paraplegic
: deferred
Rectal: Large sacral decubitus wound without active drainage. Hemoccult negative stool
Psych: Normal affect
Skin: Intact
Course
Orders/Labs/Results
Orders:
Orders
01/20/25 19:29
EKG [Electrocardiogram (*1)] Urgent
Reason for Study: Fatigue / Weakness
01/20/25 19:30
EKG- Treatment ONCE
01/20/25 20:19
Type+Screen Urgent
Complete Blood Count/With Diff Urgent
Comprehensive Metabolic Panel Urgent
01/20/25 20:55
* Blood Bank Products Urgent
Blood Bank Products: *Packed RBC Leuko (PRBC's
Quantity: 1
Transfuse Today: Yes
Reason: Anemia
Abnormal Lab Results
01/20/25
20:19
RBC 2.56 L 10^6/uL
(4.70-6.10)
Hgb 6.4 L* g/dL
(13.0-18.0)
Hct 22.4 L %
(39.0-52.0)
MCH 25.0 L pg
(27.0-31.0)
MCHC 28.6 L g/dL
(33.0-37.0)
RDW 18.0 H %
(11.5-14.5)
Abs Immat Gran (auto) 0.1 H 10^3/uL
(0-0.05)
Absolute Neuts (auto) 7.3 H 10^3/uL
(1.4-6.5)
Absolute Monos (auto) 0.8 H 10^3/uL
(0.1-0.6)
Immature Gran % 0.8 H %
(0-0.5)
Lymphocytes % 19.8 L %
(20.5-51.1)
Sodium 133 L mmol/L
(135-145)
Chloride 96 L mmol/L
(98-107)
Carbon Dioxide 32 H mmol/L
(22-30)
BUN 36 H mg/dl
(9-20)
Creatinine 2.2 H mg/dL
(0.7-1.3)
Glucose 104 H mg/dl
(70-99)
Alkaline Phosphatase 154 H U/L
(38-126)
Albumin 2.6 L g/dl
(3.5-5.0)
Crossmatch IS Only See Detail
01/20/25 20:19
01/20/25 20:19
Vital Signs
Initial and Last Documented VS:
Initial Vital Signs
Temp Pulse Resp BP Pulse Ox
97.8 F 81 16 140/58 99
01/20/25 19:19 01/20/25 19:19 01/20/25 19:19 01/20/25 19:19 01/20/25 19:19
Last Documented Vital Signs
Temp Pulse Resp BP Pulse Ox
98.3 F 88 16 115/58 97
01/20/25 22:16 01/20/25 22:16 01/20/25 22:16 01/20/25 22:16 01/20/25 22:16
MDM/Problems Addressed
MDM/Problems Addressed:
59-year-old male with complex past medical history including A-fib on Eliquis, CVA with paraplegia and chronic aphasia, PEG tube dependence, prior history of C. difficile, diabetes, CHF, ESRD on hemodialysis [facility], hypertension, chronic sacral wounds
presenting to the emergency department for low hemoglobin. Vital signs are normal
On exam, patient is in no acute distress. No active signs of bleeding on patient's physical exam. Currently Hemoccult negative. No hemodynamic instability or concern for active GI bleed. Patient with known history of anemia and on review of EMR,
patient's hemoglobins ranged from the 7-8 range. Hemoglobin checked here, 6.4. Patient's called, consented for blood. Will transfuse, however ultimately feel stable for discharge back to facility with repeat hemoglobin testing. in
agreement. Will plan for discharge after transfusion
*Pulse Oximetry
SaO2: 97
Oxygen Mode of Delivery: Room air
Patient hypoxic: no
*Critical Care Note
Total Time (30-74mins, 75-104mins- exclusive of procedures): Not Applicable
ED Attending Note
-
Portions of this chart may have been created with voice recognition software.� Occasional wrong word or��sound alike� substitutions may have occurred due to the inherent limitations of voice recognition software.
Discharge Plan
Departure
Patient with high blood pressure during this ER visit?: No
Condition: Good
Discharge Problem:
Anemia
Instructions: Anemia overview
Prescriptions:
No Action
nystatin 100,000 unit/mL Suspension
10 ml buccal TID
acetaminophen [Tylenol] 325 mg Tablet
650 mg feeding tube DAILY
allopurinol 100 mg Tablet
100 mg feeding tube DAILY
tramadol 50 mg Tablet
50 mg feeding tube BID
lorazepam 0.5 mg Tablet
0.5 mg feeding tube BIDPRN PRN (Reason: AXNIETY)
sertraline 25 mg Tablet
25 mg feeding tube DAILY
acetaminophen [Tylenol] 325 mg Tablet
650 mg feeding tube Q6HPRN PRN (Reason: mild pain)
sucralfate 100 mg/mL suspension
1 g feeding tube BID
Rx Instructions:
when feeding is not running
pantoprazole [address] for susp in packet
40 mg feeding tube BID
vancomycin 50 mg/mL Recon Soln
125 mg feeding tube DAILY Qty: 80 0RF
Rx Instructions:
Continue oral Vancomycin 125mg daily through 01/01/25
vancomycin in 0.9 % sodium chl 750 mg/150 mL Piggyback
750 mg IV HD-MOWEFR Qty: 900 0RF
Rx Instructions:
To be given post hemodialysis -- 6 week course 12/13/24-01/23/25
Referrals:
Scarlett Thompson MD [Family Provider]
Activity Restrictions/Additional Instructions:
You were seen in the emergency department for a low hemoglobin of 6.4
You were transfused 1 unit of blood. You will need repeat hemoglobin testing in the next few days to ensure improvement.
Please follow-up closely with your primary care physician.
Return to the emergency department for any worsening of your symptoms including persistent anemia with any signs of bleeding, or any development of chest pain, difficulty breathing, abdominal pain with persistent vomiting and inability to tolerate
food or liquid by mouth (concern for dehydration), weakness, headache or confusion, fever greater than 100.4, or any additional symptoms that are concerning to you.
Thank you for choosing [facility].
Interventions
Interventions:
*Risk Screen - Suicide Last Done: 01/20/25 19:42
*General Assessment Last Done: 01/20/25 19:42
*ED- Fall Risk Assessment Last Done: 01/20/25 19:42
*ED COVID-19 Vaccine History Last Done: 01/20/25 19:42
*ED Influenza Vaccine History Last Done: 01/20/25 19:42
Discharge Date and Time
Print Language: IRAQI
[2025-01-21] VITALS: BP 108/54
== END 2025-01-21 02:12 ==
LOC: EMR 19:15
PROVIDERS: EMERGENCY PHYSICIAN Student in an Organized Health Care Education/Training Program; FAMILY PHYSICIAN Internal Medicine
DX: D64.9 Anemia, unspecified (principal); E11.22 Type 2 diabetes mellitus with diabetic chronic kidney disease; I13.2 Hypertensive heart and chronic kidney disease with heart failure and with stage 5 chronic kidney disease, or end stage renal disease; N18.6 End stage renal disease; I50.9 Heart failure, unspecified; E11.622 Type 2 diabetes mellitus with other skin ulcer; L89.159 Pressure ulcer of sacral region, unspecified stage; I48.91 Unspecified atrial fibrillation; I69.365 Other paralytic syndrome following cerebral infarction, bilateral; G82.20 Paraplegia, unspecified; I69.320 Aphasia following cerebral infarction; Z79.01 Long term (current) use of anticoagulants; Z99.2 Dependence on renal dialysis; Z93.1 Gastrostomy status; Z86.19 Personal history of other infectious and parasitic diseases
CPT/HCPCS: 99285; 36430; 80053; 85025; 86850; 86900; 86901; 86920; 93005; P9016

== ENCOUNTER 2025-01-24 21:32 | Inpatient (IN) | payer OTHER, SELFPAY ==
[2025-01-24] VITALS (11 sets, daily range): BP systolic 90–154; BP diastolic 53–75; BMI 30.2
[2025-01-24 15:56] LABS: Glucose - Point of Care 168 mg/dl (70-99)
--- NOTE | 2025-01-24 16:06 | ED.GENMED ---
History of Present Illness
<Aditi Deal NP - Last Filed: 01/24/25 21:38>
General
Chief Complaint: Breathing Problem
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
Exam Limitations: altered mental status
Time Seen by Provider: 01/24/25 15:38
Nursing documentation reviewed up to this point in time: agreed with
History of Present Illness
History of Present Illness:
Patient to the emergency department from dialysis for report of respiratory distress, fever. He is a resident of [facility]. He has a complex medical history: CVA/aphasia/paraplegia. He has a past medical history of IDDM, CHF chronic renal
failure on dialysis. He was inpatient here for an extended period of time November through December for GI bleed. He returned to the emergency department approximately 4 days ago for an evaluation of anemia. He was given 1 unit PRBC's on return
to [facility]. He was sent for his scheduled dialysis today however prior to the start of dialysis staff noticed difficulty breathing, low pulse ox, and fever (no temp reading given) he was transported to the emergency department via EMS. On
arrival he is on a nonrebreather, pulse ox 95%. (Room air he is 85%). Opens eyes to name. He was given Tylenol prior to arrival to ED. He arrives diaphoretic. Spoke with patient's by phone. She is en route to ED, requests full CODE STATUS.
Past History
<Aditi Deal CAT CRACKER OPERATOR - Last Filed: 01/24/25 21:38>
Past History
ED Past Medical History: Arrthythmia (A-fib), CAD, CHF, COPD, CVA, HTN, IDDM, Renal failure (Dialysis [facility] ), Psychiatric (Anxiety, depression) and Other (GI bleed, anemia)
Review of Systems
<Aditi Deal CAT CRACKER OPERATOR - Last Filed: 01/24/25 21:38>
Review of Systems
Allergies reviewed?: Yes
All Other Systems: ROS reviewed and negative except as documented in HPI and ROS
Constitutional: Reports fever (No recorded temp provided by EMS)
EENT: Reports no symptoms
Respiratory: Reports trouble breathing (85% room air on arrival. Placed on nonrebreather at 15 L, pulse ox 95%.)
Cardiac: Reports no symptoms
ABD/GI: Reports no symptoms and other (PEG tube)
: Reports no symptoms
Musculoskeletal: Reports no symptoms
Skin: Reports other (Chronic sacral decub)
Neurological: Reports no symptoms
Psychiatric: Reports no symptoms
Phy Exam
<Aditi Deal NP - Last Filed: 01/24/25 21:38>
General Physical Exam
General Presentation: severe distress
General age: appears older than age
General Skin: diaphoretic
General Habitus: debilitated
General Mental: usual mental status
Cardiovascular Exam
Cardiovascular Exam: tachycardia
Pulmonary Exam
Pulmonary Exam: chest non tender and respiratory distress (Pulse ox 85% on room air. Placed on nonrebreather at 15 L, pulse ox 95%.)
Gastrointestinal Exam
Gastrointestinal Exam: normal bowel sounds, non tender, soft, no pulsatile mass and non distended
Musculoskeletal Exam
Musculoskeletal Exam: neuro vasc intact
Skin Exam
Skin Exam: normal color, warm/dry, no rash and other (Chronic sacral decub)
Psychiatric Exam
Psychiatric Exam: other (Opens eyes to name)
Scores
<Aditi Deal CAT CRACKER OPERATOR - Last Filed: 01/24/25 21:38>
Heart Failure Risk
Heart Failure Risk Score: Not Applicable
Sepsis
<Aditi Deal NP - Last Filed: 01/24/25 21:38>
Sepsis Screening
Sepsis Assessment: Sepsis
Sepsis Screen
Sepsis Screen: Sepsis
Date: 01/24/25
Time: 21:38
Course
<Aditi Deal NP - Last Filed: 01/24/25 21:38>
Orders/Labs/Results
Orders:
Orders
01/24/25 15:38
CR Chest Portable - 1 View Urgent
Comment:
Reason For Exam: resp distress
Reason Study Needs to be Portable: Patient Unstable
01/24/25 15:40
Urinalysis Reflex To Culture Urgent
01/24/25 15:50
0.9% Sodium Chloride 1000 ml [Nss] 1,000 ml IV BOLUS
01/24/25 16:29
Complete Blood Count/With Diff Urgent
Comprehensive Metabolic Panel Urgent
Lactic Acid Urgent
Lipase Urgent
NT-proBNP Urgent
Blood Culture Q30M
PHILL Source: Blood/Venous
Specimen Description:
01/24/25 16:30
Blood Culture Q30M
PHILL Source: Blood/Venous
Specimen Description:
01/24/25 18:18
Piperacillin/Tazo 4.5 Gram [Zosyn] 4.5 gram in 100 ml IV NOW
01/24/25 19:45
COVID-19 Antigen Stat
Source: Nasal Swab
Influenza A+B Rapid Molecular Stat
PHILL Source: Nasal Swab
Specimen Description:
01/24/25 20:[address] Non Medication Order As Directed
Physician Order: Patient can get IV in the foot for medications.
01/24/25 20:54
Vancomycin [Vancocin] 1,500 mg 0.9% Sodium Chloride 500 ml [Nss] 500 ml IV NOW
01/24/25 20:58
Admit/Transfer Patient As Directed
Co-Sign Provider:
Level of Care: Inpatient admission
Assign to:: IMU- Intermediate Care
Physician / Group: Linda
Diagnosis: Hypoxic respiratory failure
Reason for Hospitalization: Pneumonia with hypoxic respiratory failure
Expected length of stay greater than two midnights?: Yes
ELOS- Estimated Length of Stay in days: 2
I certify the patient meets the requirements for IP care: Yes
01/24/25 20:59
PRN Pain Medication Management As Directed
May give lesser potent ordered pain med per pt: Yes
preference::
Protocol:: Medication orders for pain may be administered in a
manner that supports deferring to patient preference
when the pt is:
- Requesting an ordered lesser potent pain medication.
Least to most potent pain medications are defined
as: acetaminophen < NSAID < tramadol < opioids
(morphine, oxycodone, hydromorphone).
- Requesting a lesser dose of the same medication IF
ORDERED.
- Requesting a less intrusive route of administration
if both routes are prescribed by the provider (PO <
IV).
01/24/25 21:02
Code Status As Directed
Resuscitation Status: Full Code
01/24/25 21:08
Ipratropium/Albuterol Sulfate [Duoneb] 3 ml INH R NOW ONE
Abnormal Lab Results
01/24/25 01/24/25
15:54 16:29
WBC 24.1 H 10^3/uL
(4.8-10.8)
RBC 2.96 L 10^6/uL
(4.70-6.10)
Hgb 7.6 L g/dL
(13.0-18.0)
Hct 26.4 L %
(39.0-52.0)
MCH 25.7 L pg
(27.0-31.0)
MCHC 28.8 L g/dL
(33.0-37.0)
RDW 17.8 H %
(11.5-14.5)
Abs Immat Gran (auto) 0.2 H 10^3/uL
(0-0.05)
Absolute Neuts (auto) 17.8 H 10^3/uL
(1.4-6.5)
Absolute Lymphs (auto) 4.5 H 10^3/uL
(1.2-3.4)
Absolute Monos (auto) 1.3 H 10^3/uL
(0.1-0.6)
Immature Gran % 1.0 H %
(0-0.5)
Lymphocytes % 18.5 L %
(20.5-51.1)
Sodium 132 L mmol/L
(135-145)
Chloride 97 L mmol/L
(98-107)
Carbon Dioxide 31 H mmol/L
(22-30)
BUN 63 H mg/dl
(9-20)
Creatinine 3.4 H mg/dL
(0.7-1.3)
Glucose 188 H mg/dl
(70-99)
Alkaline Phosphatase 204 H U/L
(38-126)
Albumin 2.7 L g/dl
(3.5-5.0)
POC Glucose 168 H mg/dl
(70-99)
01/24/25 16:29
01/24/25 16:29
Vital Signs
Initial and Last Documented VS:
Initial Vital Signs
Temp Pulse Resp BP Pulse Ox
98.6 F 102 27 116/53 82
01/24/25 15:54 01/24/25 15:54 01/24/25 15:54 01/24/25 15:54 01/24/25 15:54
Last Documented Vital Signs
Temp Pulse Resp BP Pulse Ox
98.6 F 90 34 129/67 98
01/24/25 15:54 01/24/25 21:15 01/24/25 21:15 01/24/25 21:00 01/24/25 21:15
Sidneylt;Lawrence Bustillo, - Last Filed: 01/24/25 17:39>
Orders/Labs/Results
Orders:
Orders
01/24/25 15:38
CR Chest Portable - 1 View Urgent
Comment:
Reason For Exam: resp distress
Reason Study Needs to be Portable: Patient Unstable
01/24/25 15:40
Urinalysis Reflex To Culture Urgent
01/24/25 15:50
0.9% Sodium Chloride 1000 ml [Nss] 1,000 ml IV BOLUS
01/24/25 16:29
Complete Blood Count/With Diff Urgent
Comprehensive Metabolic Panel Urgent
Lactic Acid Urgent
Lipase Urgent
NT-proBNP Urgent
Blood Culture Q30M
PHILL Source: Blood/Venous
Specimen Description:
01/24/25 16:30
Blood Culture Q30M
PHILL Source: Blood/Venous
Specimen Description:
01/24/25 18:18
Piperacillin/Tazo 4.5 Gram [Zosyn] 4.5 gram in 100 ml IV NOW
01/24/25 19:45
COVID-19 Antigen Stat
Source: Nasal Swab
Influenza A+B Rapid Molecular Stat
PHILL Source: Nasal Swab
Specimen Description:
01/24/25 20:[address] Non Medication Order As Directed
Physician Order: Patient can get IV in the foot for medications.
01/24/25 20:54
Vancomycin [Vancocin] 1,500 mg 0.9% Sodium Chloride 500 ml [Nss] 500 ml IV NOW
01/24/25 20:58
Admit/Transfer Patient As Directed
Co-Sign Provider:
Level of Care: Inpatient admission
Assign to:: IMU- Intermediate Care
Physician / Group: Linda
Diagnosis: Hypoxic respiratory failure
Reason for Hospitalization: Pneumonia with hypoxic respiratory failure
Expected length of stay greater than two midnights?: Yes
ELOS- Estimated Length of Stay in days: 2
I certify the patient meets the requirements for IP care: Yes
01/24/25 20:59
PRN Pain Medication Management As Directed
May give lesser potent ordered pain med per pt: Yes
preference::
Protocol:: Medication orders for pain may be administered in a
manner that supports deferring to patient preference
when the pt is:
- Requesting an ordered lesser potent pain medication.
Least to most potent pain medications are defined
as: acetaminophen < NSAID < tramadol < opioids
(morphine, oxycodone, hydromorphone).
- Requesting a lesser dose of the same medication IF
ORDERED.
- Requesting a less intrusive route of administration
if both routes are prescribed by the provider (PO <
IV).
01/24/25 21:02
Code Status As Directed
Resuscitation Status: Full Code
01/24/25 21:08
Ipratropium/Albuterol Sulfate [Duoneb] 3 ml INH R NOW ONE
Abnormal Lab Results
01/24/25 01/24/25
15:54 16:29
WBC 24.1 H 10^3/uL
(4.8-10.8)
RBC 2.96 L 10^6/uL
(4.70-6.10)
Hgb 7.6 L g/dL
(13.0-18.0)
Hct 26.4 L %
(39.0-52.0)
MCH 25.7 L pg
(27.0-31.0)
MCHC 28.8 L g/dL
(33.0-37.0)
RDW 17.8 H %
(11.5-14.5)
Abs Immat Gran (auto) 0.2 H 10^3/uL
(0-0.05)
Absolute Neuts (auto) 17.8 H 10^3/uL
(1.4-6.5)
Absolute Lymphs (auto) 4.5 H 10^3/uL
(1.2-3.4)
Absolute Monos (auto) 1.3 H 10^3/uL
(0.1-0.6)
Immature Gran % 1.0 H %
(0-0.5)
Lymphocytes % 18.5 L %
(20.5-51.1)
Sodium 132 L mmol/L
(135-145)
Chloride 97 L mmol/L
(98-107)
Carbon Dioxide 31 H mmol/L
(22-30)
BUN 63 H mg/dl
(9-20)
Creatinine 3.4 H mg/dL
(0.7-1.3)
Glucose 188 H mg/dl
(70-99)
Alkaline Phosphatase 204 H U/L
(38-126)
Albumin 2.7 L g/dl
(3.5-5.0)
POC Glucose 168 H mg/dl
(70-99)
01/24/25 16:29
01/24/25 16:29
Vital Signs
Initial and Last Documented VS:
Initial Vital Signs
Temp Pulse Resp BP Pulse Ox
98.6 F 102 27 116/53 82
01/24/25 15:54 01/24/25 15:54 01/24/25 15:54 01/24/25 15:54 01/24/25 15:54
Last Documented Vital Signs
Temp Pulse Resp BP Pulse Ox
98.6 F 90 34 129/67 98
01/24/25 15:54 01/24/25 21:15 01/24/25 21:15 01/24/25 21:00 01/24/25 21:15
<Aditi Deal CAT CRACKER OPERATOR - Last Filed: 01/24/25 21:38>
*Pulse Oximetry
SaO2: 94
Oxygen Mode of Delivery: Non-rebreather mask
Patient hypoxic: yes
*Critical Care Note
Total Time (30-74mins, 75-104mins- exclusive of procedures): Not Applicable
<Aditi Deal NP - Last Filed: 01/24/25 21:38>
Update Note
Update Note:
Patient to the emergency department from dialysis for report of respiratory distress and fever. No documented temperature provided. Pulse ox 85% on room air on arrival. He was placed on nonrebreather 15 L pulse ox improved to 95%. Rectal temp on
arrival was 98 7. Blood pressure normotensive. Labs reviewed. WBC 24.1 with a lactic of 1.3. Sodium 132 BUN 63 creat 3.4. UA pending. he receives dialysis Wednesdays and Fridays. Dialysis was not completed today. Chest x-ray mild
interstitial pulmonary edema moderate size left lower lobe airspace consolidation atelectasis or pneumonia small left pleural effusion. Case discussed with Dr. Frazier who also evaluated this patient. Will admit to the hospital service IV fluids,
IV antibiotics initiated. Patient's is bedside. Requesting full CODE STATUS.
ED Attending Note
<Aditi Deal NP - Last Filed: 01/24/25 21:38>
-
Portions of this chart may have been created with voice recognition software.� Occasional wrong word or��sound alike� substitutions may have occurred due to the inherent limitations of voice recognition software.
<Lawrence Bustillo DO - Last Filed: 01/24/25 17:39>
ED Attending Note
Patient seen and examined by attending physician: Yes
I performed the substantive portion of visit, reviewed & personally made and approve the management plan that is documented in note by myself or MUNIRA.: Yes
Discharge Plan
Departure
Patient Disposition: Admit
Date of Disposition: 01/24/25
Time of Disposition: 18:29
Presentation/result/management discussed w/ accepting MD/DO: Hospitalist
Patient with high blood pressure during this ER visit?: No
Covid-19: Not Applicable
Discharge Problem:
Pneumonia, Hypoxemia
Interventions
Interventions:
*Risk Screen - Suicide Last Done: 01/24/25 15:54
*General Assessment Last Done: 01/24/25 15:54
*Neglect/Abuse Screening Last Done: 01/24/25 15:54
*ED- Fall Risk Assessment Last Done: 01/24/25 15:59
*ED COVID-19 Vaccine History Last Done: 01/24/25 15:59
*ED Influenza Vaccine History Last Done: 01/24/25 15:59
ED- Cardiac Assessment Last Done: 01/24/25 15:45
ED- Pulmonary Assessment Last Done: 01/24/25 15:45
[2025-01-24] MEDS: NSS 1000 IV (16:33)
[2025-01-24 16:58] LABS: Hematocrit 26.4 % (39.0-52.0); Hemoglobin 7.6 g/dL (13.0-18.0); Mean Corp Hgb Conc. 28.8 g/dL (33.0-37.0); Mean Corpuscular Volume 89.2 fL (80.0-94.0); Nucleated Red Blood Cells % 0 % (-); Platelet Count 348 10^3/uL (130-400); Red Cell Dist. Width 17.8 % (11.5-14.5)
[2025-01-24 17:07] LABS: ALT (SGPT) 23 U/L (0-50); AST (SGOT) 30 U/L (17-59); Albumin 2.7 g/dl (3.5-5.0); Alkaline Phosphatase 204 U/L (38-126); Blood Urea Nitrogen 63 mg/dl (9-20); Calcium 8.6 mg/dl (8.4-10.2); Carbon Dioxide 31 mmol/L (22-30); Chloride 97 mmol/L (98-107); Glucose 188 mg/dl (70-99); Lipase 31 U/L (23-300); Potassium 3.8 mmol/L (3.5-5.1); Sodium 132 mmol/L (135-145); Total Protein 7.4 g/dl (6.3-8.2); eGFR 19.96
--- NOTE | 2025-01-24 19:16 | HPS.HSE ---
Family Physician
-
Family Physician: * NONE
Chief Complaint
-
Hypoxia
History of Present Illness
This is a 59-year-old male with past medical history significant for CVA with residual paraplegia, status post trach and PEG, history of intra-abdominal abscess status post exploratory laparotomy without bowel resection, atrial fibrillation on
anticoagulation, ybp-liakbpc-ljlertupy diabetes, COPD, hypertension, ESRD on hemodialysis via right IJ PermCath brought to the emergency department from [facility] dialysis unit for severe hypoxic respiratory failure.
Patient arrived from the dialysis unit for hypoxia and was on 15 L nonrebreather and diaphoretic. He is nonverbal at baseline.
Past history patient was seen in the emergency department approximately 4 days ago for anemia and received 1 unit of blood. He was at dialysis today when staff noticed difficulty breathing and a low pulse ox. They also recorded a fever but no
temperature given. He was therefore transported to the emergency department. Patient unable to provide any history. He does open eyes to name.
His temperature in the ED was 98.6, he is 100% on nonrebreather. Blood pressure is stable at 139/74 with a pulse rate of 83. His chest x-ray does shows chronic interstitial changes with left lower lobe consolidation. He has a PermCath.
Lactic acid was 1.3. CBC shows a white count of 24.1 with hemoglobin of 7.6 and platelet of 348. Hemoglobin is at his usual baseline. He is electrolytes are consistent with hemodialysis and unremarkable. Assess BUN and creatinine. Glucose is
188.
Medical History
Past Medical History
Past Medical History: Reports Other
Additional Past Medical History:
hypertension
atrial fibrillation
end-stage renal disease on hemodialysis Friday via right IJ PermCath, he is status post a left upper extremity AV fistula 1 month ago
Hx CVA with residual aphasia and paraplegia, residual dysphagia status post PEG
Past Surgical History: Reports Other
Additional Past Surgical History:
PEG tube placement
exploratory laparotomy
left upper extremity AV fistula
Social History
Unable to obtain full social history at this time due to: Patient Non-verbal
Family History
Family History: Not pertinent
Allergies / Home Medications
Allergies reflects when Allergies were last updated in [employer].
Home Medications with original date entered in [employer]
Allergy/Medication List:
Allergies
Allergy/AdvReac Type Severity Reaction Status Date / Time
No Known Allergies Allergy Verified 12/13/24 21:15
Home Medications
acetaminophen 325 mg tablet (Tylenol) 650 mg feeding tube DAILY mild Pain 11/22/24
allopurinol 100 mg tablet 100 mg feeding tube DAILY Gout 11/22/24
bisacodyl 10 mg rectal suppository (Dulcolax (bisacodyl)) 10 mg NE DAILYPRN PRN if no bm aftr sorbitol 11/22/24
loperamide 2 mg capsule 2 mg feeding tube Q8HPRN PRN DIARRHEA 11/22/24
loperamide 2 mg capsule 4 mg feeding tube BID diarrhea 11/22/24
lorazepam 0.5 mg tablet 0.5 mg feeding tube BIDPRN PRN AXNIETY 11/22/24
nystatin 100,000 unit/mL oral suspension 10 ml buccal TID Infection 11/22/24
sertraline 25 mg tablet 25 mg feeding tube DAILY Mental Health/Anxiety 11/22/24
sorbitol 70 % solution 30 ml PO DAILYPRN PRN CONSTIPATION/ VIA PEG TUBE 11/22/24
tramadol 50 mg tablet 50 mg feeding tube BID moderate Pain 11/22/24
Metamucil Free & Natural 43% 1 packet feeding tube DAILY Constipation 12/13/24
acetaminophen 325 mg tablet (Tylenol) 650 mg feeding tube Q6HPRN PRN mild pain 12/13/24
apixaban 5 mg tablet (Eliquis) 5 mg feeding tube BID afib 12/13/24
pantoprazole 40 mg granules delayed-release for susp in packet 40 mg feeding tube BID gerd 12/13/24
sucralfate 100 mg/mL oral suspension 1 g feeding tube BID gerd 12/13/24
Review of Systems
-
Unable to obtain full review of systems at this time due to: Patient Non-verbal
Physical Exam
Vital Signs
Vital Signs
Temp Pulse Resp BP Pulse Ox
98.6 F 83 29 139/74 100
01/24/25 15:54 01/24/25 18:30 01/24/25 18:30 01/24/25 18:00 01/24/25 18:30
Physical Exam
General: Appears Chronically Ill and Other
HEENT: NormoCephalic, Anicteric, Atraumatic, PERRLA and Oxygen (Ventimask)
Respiratory: Rales, Rhonchi, Crackles and Decreased Breath Sounds; No Accessory Resp Muscle Use
Cardiac: S1/S2 and Regular Rhythm
Breast: Deferred by me
GI: Soft, Non Distended, Normal Bowel Sounds and Peg Tube
Rectal: Brown, Red and Hem Positive
Genito-urinary: Deferred by me
Musculoskeletal: No Clubbing, No Cyanosis and No Edema
Skin: Warm
Neuro: Awake; No Alert or Oriented
Hematologic/Lymphatic: No Lymphadenopathy
Laboratory Results
-
01/24/25 16:29
01/24/25 16:29
Laboratory Results
Lactic Acid 1.3 mmol/L (0.7-2.0) 01/24/25 16:29
Total Bilirubin 0.7 mg/dl (0.2-1.3) 01/24/25 16:29
AST 30 U/L (17-59) 01/24/25 16:29
ALT 23 U/L (0-50) 01/24/25 16:29
Alkaline Phosphatase 204 U/L (38-126) H 01/24/25 16:29
Lipase 31 U/L (23-300) 01/24/25 16:29
Data Reviewed
-
Diagnostic Radiology: Image Personally Visualized and interpreted and Report Reviewed by me
Lab Data: Labs Reviewed by me
Old Records: Reviewed
Impression/Plan
-
IMPRESSION:
59-year-old with past medical history of atrial fibrillation on anticoagulation, ESRD on hemodialysis, CVA with residual aphasia, non-verbal and paraplegia, status post PEG for dysphagia presenting to the emergency department with hypoxic
respiratory failure and recorded fever from dialysis unit. In the emergency department he does have a left lower lobe consolidation on x-ray. He is afebrile here but has oxygen requirements. Lactic acid was 1.3. His CBC shows leukocytosis with a
left shift. Hemoglobin and platelets are at baseline.
PLAN:
Hypoxic respiratory failure -acute hypoxic respiratory failure. Patient with the left lower lobe infiltrate and leukocytosis. Febrile at dialysis. Chronic CHF but does not appear to be volume overloaded at this time.
� Admit to IMU
� Blood cultures
� Check COVID and flu
� Start antibiotics with vancomycin and Zosyn to cover aspiration pneumonia and prior history of MRSA
� Respiratory suctioning as tolerated
� Nebs as needed
� ID consult
Atrial fibrillation -rate controlled
- Currently in sinus and not requiring any rate control, off anticoagulation
- Monitor on telemetry
End-stage renal disease with CHF with preserved EF
- Missed dialysis today, volume is preserved without acute overload, electrolytes are stable. Plan for dialysis tomorrow
� Nephrology consultation
History of GI bleed
- Continue PPI twice daily via PEG
DVT prophylaxis with heparin subcu
CODE STATUS�full code
[2025-01-24 20:05] LABS: COVID-19 Antigen Negative (Negative)
[2025-01-24] MEDS: ZOSYN 100 IV (20:29)
--- NOTE | 2025-01-24 20:38 | VATNOTE ---
Called to ER to place IV. Multiple VAT RNs attempted to place PIV in right arm; left arm with fistula and unable to be used. Multiple unsuccessful attempts made to place PIV. Spoke with ER MD at bedside, and plan to place midline. Attempted midline
with assistance of other VAT RN; able to access cephalic and brachial veins, unable to adequately insert wire. Basilic vein unable to be visualized due to right arm contracture and poor ROM. Dr. Soto previously indicated IV could be placed in the
foot if all other options unsuccessful. Multiple attempts made to get access as documented. Admitting Hospitalist made aware and states will place order for foot IV.
[2025-01-24] MEDS: VANCOCIN 530 MG IV (21:07)
[2025-01-24] MEDS: DUONEB 3 ML INH (22:12)
--- NOTE | 2025-01-24 23:08 | PHA.VAN.IN ---
Assessment
- Assessment
Renal Function: Patient has ESRD, on chronic Hemodialysis
Hemodialysis Schedule: MWF
Concomitant Antimicrobials: PIPERACILLIN/TAZO
Plan
- Plan
Initial / Loading Dose: VANCOMYCIN 1500 MG IV ~ 2100
Maintenance Regimen: Dosing by random level.
Monitoring: Random level is scheduled on 01/25 w. am labs. Pharmacy will follow.
Pharmacokinetics Vancomycin I
- -
Patient Age: 59
Patient Sex: Male
Vancomycin Day #: 1
Indication: Pulmonary/Respiratory
Requesting Provider: Dr Linda Katz
Height / Weight:
Height 5 ft 6 in
Actual Weight 84.7 kg
Pertinent Past Medical History: IDDM, HD (M,W,F) Pt. w. severe hypoxic respiratory failure.
- Vital Signs / Lab Results
Temp Pulse Resp BP Pulse Ox
99.0 F 88 20 129/67 94
01/24/25 22:30 01/24/25 22:14 01/24/25 22:14 01/24/25 21:00 01/24/25 22:14
Lab Results - Hematology
01/24/25
16:29
WBC 24.1 H
Lab Results - Chemistry
01/24/25
16:29
BUN 63 H
Creatinine 3.4 H
Albumin 2.7 L
01/24/25
16:29
Lactic Acid 1.3
Microbiology Results
01/24/25 19:45 Influenza Types A & B (ELIZ) - Final
Nasal Swab Negative for Influenza A & B, NAAT
Negative results must be combined with clinical observations
and patient history.
Nucleic Acid Amplification test (NAAT)performed on the
[employer] ID NOW platform.
[2025-01-25] VITALS (36 sets, daily range): BP systolic 79–119; BP diastolic 45–73; BMI 30.2; BMI 29.7
[2025-01-25] MEDS: MYCOSTATIN ORAL SUSPENSION 10 ML TUBE (00:12)
[2025-01-25 01:46] LABS: Urine Character Slightly Cloudy (Clear)
--- NOTE | 2025-01-25 02:17 | PTCARENOTE ---
pt admitted to IMU.
neuro: pt is nonverbal but opens eyes to name and touch. he has history of CVA -Residual aphasia and paraplegia, residual dysphagia
resp: He is on the ventimask 6L w/ 35% SpO2=96. Lungs are coarse, diminished, w/ crackles. tachypenic w/ RR 20's. pt has a wet cough - no
sputum. thrush noted. mouth care completed.
Cardio: pt is SR w/ HR=80's. Doppler for pedal pulses.
GI: pt is npo w/ peg tube to left upper abdomen - w/ moderate amount of brown/green purulent drainage. . small open area noted next
to peg tube site. Peg tube bumper noted at 6. site care given. pt is incontinent of bowel - small soft orange/lambert BM - heme test negative.
: pt bladder scan for 1150ml. milky discharge noted. obtained order for straight cath - 1200ml of tea, cloudy urine. urine sample sent. pt is on HD.
muscular: pt is bed bound, and he has history of CVA -Residual aphasia and paraplegia, residual dysphagia contacted arms/hands.
skin: pt skin is clammy, cool, diaphoretic. axillary temp=99.0. chg wipes completed. pt has healed scar to abdomen. under peg tube site - small open
area. pt also has 2 decubitals ulcers w/ large amounts of drainage - cleanse w/ NSS, and packed w/ wet to dry, abd gauze and tape. several
small open areas also on buttocks - cleaned and covered. Right lower ankle and heel - scab, DTI vs bruise - foams applied., wound care
consulted. pt on centrea max air mattress and placed on p0citdm
pt has an INT to Left foot, right IJ permacath, and +brill and trill to left AV fistula.
pt is placed on aspiration, and precautions for hx of ESBL, MRSA, and CDIFF.
[2025-01-25 02:23] LABS: Urine Red Blood Cell 0-2 /HPF (0-2)
[2025-01-25 02:37] LABS: Urine White Cell >100 /HPF (0-5)
[2025-01-25 03:10] LABS: Glucose - Point of Care 146 mg/dl (70-99)
[2025-01-25] MEDS: ZOSYN 50 IV ×3 (03:51→19:31)
--- NOTE | 2025-01-25 04:22 | PTCARENOTE ---
pt placed on 6Lnc GhL2=803. later lowered to 5lnc SpO2=99-100%.
--- NOTE | 2025-01-25 06:36 | PTCARENOTE ---
Attempted pt on room air SpO2=90%; PLACED BACK ON 2l AT nDe3=562%
[2025-01-25 07:17] LABS: Blood Urea Nitrogen 70 mg/dl (9-20); Calcium 8.5 mg/dl (8.4-10.2); Carbon Dioxide 28 mmol/L (22-30); Chloride 99 mmol/L (98-107); Estimated Creatinine Clearance 22 ml/min; Glucose 122 mg/dl (70-99); Potassium 3.8 mmol/L (3.5-5.1); Sodium 133 mmol/L (135-145); eGFR 18.64
[2025-01-25] MEDS: DUONEB 3 ML INH (07:18)
[2025-01-25 07:34] LABS: Hematocrit 23.8 % (39.0-52.0); Hemoglobin 7.3 g/dL (13.0-18.0); Mean Corp Hgb Conc. 30.7 g/dL (33.0-37.0); Mean Corpuscular Volume 85.0 fL (80.0-94.0); Platelet Count 275 10^3/uL (130-400); Red Cell Dist. Width 17.7 % (11.5-14.5)
--- NOTE | 2025-01-25 08:13 | W.PN.HOSP.TC ---
Addendum entered and electronically signed by Jacqueline Edmonds MD 01/25/25 08:23:
midodrine ordered for SBP 85 this morning
HD today
Vanc/Zosyn, follow up cultures and ID recs
Original Note:
Today's Communication/Plan
-
see plan
Assessment / Plan
Assessment / Plan
This is a 59-year-old male with past medical history significant for CVA with residual paraplegia, status post trach and PEG, history of intra-abdominal abscess status post exploratory laparotomy without bowel resection, atrial fibrillation on
anticoagulation, asx-zlpiyxy-gfqmpzdot diabetes, COPD, hypertension, ESRD on hemodialysis via right IJ PermCath brought to the emergency department from [facility] dialysis unit for severe hypoxic respiratory failure. Patient arrived from the
dialysis unit for hypoxia and was on 15 L nonrebreather and diaphoretic. He is nonverbal at baseline. He was also reported to have a fever.
CXR
IMPRESSION:
1. Mild interstitial cardiogenic pulmonary edema.
2. Moderate size left lower lobe airspace consolidation (either atelectasis or pneumonia).
3. Small left pleural effusion.
4. Right IJ hemodialysis catheter in place.
PLAN:
Acute Hypoxic respiratory failure
Left lower lobe pneumonia with leukocytosis and fever reported at dialysis
� Admitted to IMU
� follow up Blood cultures, covid and flu negative
� Start antibiotics with vancomycin and Zosyn to cover aspiration pneumonia and prior history of MRSA
� Respiratory suctioning as tolerated
� Nebs as needed
� ID consult
Atrial fibrillation -rate controlled
- Currently in sinus and not requiring any rate control, off anticoagulation
- Monitor on telemetry
End-stage renal disease with CHF with preserved EF
- Missed dialysis today, volume is preserved without acute overload, electrolytes are stable. Plan for dialysis tomorrow
� Nephrology consultation
History of GI bleed
- Continue PPI twice daily via PEG
DVT prophylaxis with heparin subcu
CODE STATUS�full code
Anticipated Discharge: 24 - 48 hours
Subjective/Interval History
-
Date of Service: January 25, 2025
patient non-verbal
Objective Data
-
Labs:
Laboratory Results
01/25/25
06:14
WBC 18.9 H
Hgb 7.3 L
Hct 23.8 L
Plt Count 275 D
Sodium 133 L
Potassium 3.8
Chloride 99
Carbon Dioxide 28
BUN 70 H
Creatinine 3.6 H
Glucose 122 H
Calcium 8.5
Vital Signs:
Vital Signs
Temp Pulse Resp BP Pulse Ox
98.8 F 63 20 119/59 100
01/25/25 02:55 01/25/25 07:20 01/25/25 07:20 01/25/25 06:00 01/25/25 07:20
I&O
01/24/25 01/25/25 01/26/25
06:59 06:59 06:59
Intake Total 600 / 600
Output Total 1200 / 1200
Balance -600 / -600
Review of Systems
-
Unable to obtain full review of systems at this time due to: Patient Non-verbal
History Source: Patient
Physical Exam
-
General: Other (appears chronically ill, opens eyes to voice )
HEENT: PERRLA
Respiratory: Rhonchi
Cardiac: Regular Rhythm and S1/S2
GI: Soft, Nontender, Nondistended and Peg Tube
Musculoskeletal: No Edema
Neuro: Awake and Alert; Negative Oriented
Psych: Calm
Data Reviewed
-
Diagnostic Radiology: Report Reviewed by me
Labs: Labs Reviewed by me
--- NOTE | 2025-01-25 08:19 | PTCARENOTE ---
Pt non verbal, lungs are coarse 1 liter O2 at 99%. Pt has thrush in his mouth. Pt BP 85/48 , DR Edmonds here saw pt will order MIdodrine.
[2025-01-25] MEDS: HEPARIN 5000 UNITS SC ×2 (08:42→19:31)
[2025-01-25] MEDS: PREVACID 30 MG TUBE ×2 (08:42→19:31)
[2025-01-25] MEDS: ZYLOPRIM 100 MG TUBE (08:42)
[2025-01-25] MEDS: ZOLOFT 25 MG TUBE (08:42)
--- NOTE | 2025-01-25 09:07 | PTCARENOTE ---
PT weaned to RA POX 86% back on 2 l O2
[2025-01-25] MEDS: MYCOSTATIN ORAL SUSPENSION 10 ML PO ×3 (09:19→23:14)
[2025-01-25] MEDS: CARAFATE SUSPENSION 1 GM TUBE ×2 (09:19→19:31)
--- NOTE | 2025-01-25 09:44 | PHA.VAN.FU ---
Vancomycin Assessment / Plan
- Assessment
Hemodialysis Schedule: MWF
WBC's are: Trending Down
In the past 24 hrs, patient has been: Afebrile
Concomitant Antimicrobials: piperacillin/tazobactam
- Assessment - Therapeutic Drug Monitoring
Random Level: 26.7 - drawn ~9H after 1500mg loading dose
- Dosing Plan
Dosing by Level: Hold off on dosing today (will consider 750mg HD MWF based on prior experience once pre-HD level appropriate for re-dosing)
- Monitoring Plan
Random Level: 01/26 prior to HD
- Follow Up
Pharmacy will continue to follow.
Vancomycin Follow UP
- -
Patient Age: 59
Patient Sex: Male
Vancomycin Day #: 2
Indication: Pulmonary/Respiratory
Requesting Provider: Dr Linda Katz
Pertinent Antimicrobial Allergies:
NKDA
Height / Weight:
Height 5 ft 6 in
Actual Weight 83.4 kg
Pertinent Past Medical History: ESRD on HD MWF, DM, paraplegia (s/p CVA)
- Vital Signs / Lab Results
Temp Pulse Resp BP Pulse Ox
97.3 F 73 18 85/45 100
01/25/25 07:00 01/25/25 08:41 01/25/25 08:10 01/25/25 08:41 01/25/25 08:10
Lab Results - Hematology
01/24/25 01/25/25
16:29 06:14
WBC 24.1 H 18.9 H
Lab Results - Chemistry
01/24/25 01/25/25
16:29 06:14
BUN 63 H 70 H
Creatinine 3.4 H 3.6 H
Estimated Creat Clear 22
Albumin 2.7 L
01/24/25
16:29
Lactic Acid 1.3
Lab Results - Urine
01/25/25
00:53
Urine Nitrite (Reflex) Negative
Leukocyte Esterase Rfl 3+ A
Ur Squamous Epith Cells 6-10
Microbiology Results
01/24/25 19:45 Influenza Types A & B (ELIZ) - Final
Nasal Swab Negative for Influenza A & B, NAAT
Negative results must be combined with clinical observations
and patient history.
Nucleic Acid Amplification test (NAAT)performed on the
[employer] platform.
Therapeutic Drug Monitoring
Random Vancomycin 26.7 ug/ml 01/25/25 06:14
[2025-01-25] MEDS: MYCOSTATIN ORAL SUSPENSION TUBE (10:17)
--- NOTE | 2025-01-25 10:20 | PTOTSP ---
ORDERS RECEIVED FROM ED AND CHART REVIEWED. PATIENT IS ADMITTED FROM [facility] WHERE HE IS LONG-TERM CARE, BEDBOUND/COTY LIFT IF OUT OF BED. THEREFORE, PATIENT NOT APPROPRIATE FOR ACUTE CARE SKILLED SERVICES. IF DESIRED THAT PATIENT BE OUT OF BED,
RECOMMEND STAFF USE COTY LIFT. WILL DISCHARGE FROM P.T. SERVICES.
--- NOTE | 2025-01-25 10:32 | W.CON.NEPH ---
Consultation
-
Date/Time Consultation Requested: 01/25/2025 9 AM
Date/Time Consultation Performed: 01/25/2025 10 AM
Requesting Provider: Dr. Mckeon
Performing Provider: Dr. Diaz
Reason for Consultation: ESRD
Medical History
-
Chief Complaint: ESRD
History of Present Illness:
59-year-old male with history of stroke with subsequent paraplegia dysphagia with PEG tube history of tracheostomy status post removal with ESRD on Friday dialysis schedule at [facility].he has chronic anemia treated with NIVIA on
dialysis but also has history of GI bleed with several admissions for that. He has atrial fibrillation though not on anticoagulation given GI bleed. He also has diabetes mellitus type 2 though not on medication. Reportedly he was at dialysis
yesterday but when it was noted that he had a low pulse oximetry and difficulty breathing he did not receive dialysis and was instead sent to the emergency room. We are asked to assist with management of the ESRD
Past Medical History
Atrial fibrillation, CVA -Residual aphasia and paraplegia, residual dysphagia status post PEG, HTN and End-stage renal disease on hemodialysis Friday via right IJ PermCath, he is status post a left upper extremity AV fistula
Past Surgical History: Other (PEG tube placement, exploratory laparotomy, AVF)
Social History
Tobacco: Non-Smoker
Alcohol: None
Drug: None
Family History
Family History: Not Pertinent and Unable to Obtain (non verbal)
Allergies / Home Medications
Allergy/AdvReac Type Severity Reaction Status Date / Time
No Known Allergies Allergy Verified 01/24/25 15:53
�Medication �Instructions �Recorded �Confirmed �Type
acetaminophen 325 mg tablet 650 mg feeding tube DAILY mild Pain 11/22/24 01/24/25 History
(Tylenol)
allopurinol 100 mg tablet 100 mg feeding tube DAILY Gout 11/22/24 01/24/25 History
lorazepam 0.5 mg tablet 0.5 mg feeding tube BIDPRN PRN 11/22/24 01/24/25 History
AXNIETY
nystatin 100,000 unit/mL oral 10 ml buccal TID Infection 11/22/24 01/24/25 History
suspension
sertraline 25 mg tablet 25 mg feeding tube DAILY Mental 11/22/24 01/24/25 History
Health/Anxiety
acetaminophen 325 mg tablet 650 mg feeding tube Q6HPRN PRN 12/13/24 01/24/25 History
(Tylenol) mild pain
pantoprazole 40 mg granules 40 mg feeding tube BID gerd 12/13/24 01/24/25 History
delayed-release for susp in packet
sucralfate 100 mg/mL oral 1 g feeding tube BID gerd 12/13/24 01/24/25 History
suspension
bisacodyl 10 mg rectal suppository [address] DAILYPRN PRN if no bm 01/24/25 01/24/25 History
(Dulcolax (bisacodyl)) aftr sorbitol
inulin 5 gram/5.8 gram oral powder 5 g PO DAILY peg-tube 01/24/25 01/24/25 History
oxycodone 10 mg tablet 10 mg feeding tube BID PRN severe 01/24/25 01/24/25 History
pain
sorbitol 70 % solution 30 ml PO DAILYPRN PRN constipation 01/24/25 01/24/25 History
Review of Systems
-
Unable to obtain full review of systems at this time due to: Patient Non Verbal
All other systems: Negative unless noted
Physical Exam
Vital Signs
Vital Signs
Temp Pulse Resp BP Pulse Ox
97.3 F 73 18 85/45 100
01/25/25 07:00 01/25/25 08:41 01/25/25 08:10 01/25/25 08:41 01/25/25 08:10
Lab Results
WBC 18.9 10^3/uL (4.8-10.8) H 01/25/25 06:14
RBC 2.80 10^6/uL (4.70-6.10) L 01/25/25 06:14
Hgb 7.3 g/dL (13.0-18.0) L 01/25/25 06:14
Hct 23.8 % (39.0-52.0) L 01/25/25 06:14
Plt Count 275 10^3/uL (130-400) D 01/25/25 06:14
Sodium 133 mmol/L (135-145) L 01/25/25 06:14
Potassium 3.8 mmol/L (3.5-5.1) 01/25/25 06:14
Chloride 99 mmol/L (98-107) 01/25/25 06:14
Carbon Dioxide 28 mmol/L (22-30) 01/25/25 06:14
BUN 70 mg/dl (9-20) H 01/25/25 06:14
Creatinine 3.6 mg/dL (0.7-1.3) H 01/25/25 06:14
eGFR 18.64 01/25/25 06:14
Glucose 122 mg/dl (70-99) H 01/25/25 06:14
Calcium 8.5 mg/dl (8.4-10.2) 01/25/25 06:14
Phk-Y-Ibiqptmpnfy Pept 98561 pg/ml 01/24/25 16:29
Albumin 2.7 g/dl (3.5-5.0) L 01/24/25 16:29
Physical Exam
Patient is awake alert oriented and in no distress. Mood and affect were pleasant, insight and judgment were good. Pupils are equal round and reactive to light, extraocular movements are intact, sclera were anicteric. Hearing was normal, ears and
nose are intact. Oropharynx was clear. Neck was supple with trachea midline and no thyromegaly. Heart was regular rate and rhythm without rubs. Lower extremities without edema. Lungs were clear to auscultation bilaterally and with normal
excursion. Abdomen was soft, nontender, with normal active bowel sounds, and no hepatosplenomegaly. Skin was without rash and with normal turgor.
Data Reviewed
-
Radiology: Image Personally Visualized and interpreted (Chest x-ray 01/24/2025 by my reading mild vascular prominence)
Medical Tests (Nuc Med, Echo etc): Image Personally Visualized and interpreted (EKG 01/20/2025 by my reading normal sinus rhythm)
Labs: Labs Reviewed by me
Old Records: Reviewed
Assessment/Plan
-
IMP:
Anemia
ESRD on HD-MWF [facility]
left UE AVF
right chest wall catheter
Dysphagia on PEG
Hx of CVA with residual aphasia and paraplegia
Urine retention
Diabetes mellitus type 2
Plan:
Dialysis today as he missed yesterday
Dialysis tomorrow to maintain schedule
NIVIA on dialysis
--- NOTE | 2025-01-25 12:15 | CON.ID ---
Consultation
-
Date/Time Consultation Requested: 01/24/2025 2302
Date/Time Consultation Performed: 01/25/2025 1215
Requesting Provider: Dr. Mckeon
Performing Provider: Dr. Mazariegos
Reason for Consultation: PNA; Hx ESRD-HD
Chief Complaint / Past History
Chief Complaint
Bleeding from rectum.
History of Present Illness
Jordon Lopez is a 59-year-old male with a significant past medical history of CVA being evaluated request of Dr. Mckeon regarding pneumonia. History is obtained from chart review alone as the patient cannot provide any meaningful history to me.
The patient was brought to [facility] yesterday from the nursing facility where he resides secondary to severe hypoxic respiratory failure. Per review notes the patient was to have dialysis today, but the nursing staff noticed difficulty
breathing and depressed pulse ox. EMS was called, and the patient was brought emergently to the hospital on 15 L nonrebreather. At presentation he was diaphoretic.
Further history was reviewed. The patient has a history of CVA and is functionally paraplegic and and bedbound. He has a history of trach with reversal and PEG tube.
At presentation, patient was found to have a leukocytosis, but afebrile. The patient has been started on empiric antibiotics. Infectious Diseases is asked to comment upon further antimicrobial management.
Past History
Past Medical History: Other
Additional Past Medical History:
CVA and paraplegia
Dysphagia status post PEG
Atrial fibrillation
HTN
End-stage renal disease on hemodialysis Friday via right IJ PermCath
GIB/erosive gastritis
C. diff x 1 (08/2024)
Chronic sacral decubitus wounds
Urinary retention with griffiths
Left upper extremity AV fistula placement
history of intra-abdominal abscess/necrotizing infection s/p exploratory laparotomy
Past Surgical History: Other (PEG tube placement, exploratory laparotomy, AVF))
Additional Past Surgical History:
PEG tube
HD PermCath
Chronic Griffiths catheter
LUE AV fistula
Exploratory lap
Allergy History:
No Known Allergies Allergy (Verified 01/24/25 15:53)
Medications Reviewed: Yes
Current Antibiotics:
Vancomycin (dosing per pharmacy)
Zosyn 2.25 gm IV q.8 hours
Social History
Tobacco: Non-Smoker
Alcohol: None
Drug: None
Personal:
Living: Group Home (unable to obtain social hx as patient is non verbal.)
Family History
Family History: Not Pertinent and Unable to Obtain (Patient not verbal)
Review of Systems
Vital Signs
Temp Pulse Resp BP Pulse Ox
97.3 F 67 18 115/69 99
01/25/25 11:00 01/25/25 12:09 01/25/25 11:04 01/25/25 12:09 01/25/25 11:04
Physical Exam
Physical Exam
Constitutional: Chronically Ill and Non-toxic
Head: Normocephalic
Eyes: Pupils Equal, Pupils Round and Sclera Anicteric
Oral: No Thrush and No Ulcers
Cardiovascular: S1/S2; Negative S3/S4 or Murmur
Pulmonary: Other (Poor effort. Decreased breath sounds in the bases.); Negative Wheezes or Rales
Gastrointestinal: Soft, Non Distended, Normal Bowel Sounds, No Rebound, No Guarding and Other (PEG tube in place. Exit site without erythema)
Skin: Warm and Dry; Negative Rash
Wound: Other (Large sacral wound packed and dressed. Bilateral skin excoriation extending onto the buttocks.)
Neurological: Awake and Other (Responsive to voice, touch)
Lines: HD Cath (Right ACW; exit site without erythema)
Lab / Diagnostic Study Results
01/25/25 06:14
01/25/25 06:14
Abs Immat Gran (auto) 0.2 10^3/uL (0-0.05) H 01/24/25 16:29
Absolute Neuts (auto) 17.8 10^3/uL (1.4-6.5) H 01/24/25 16:29
Absolute Lymphs (auto) 4.5 10^3/uL (1.2-3.4) H 01/24/25 16:29
Absolute Monos (auto) 1.3 10^3/uL (0.1-0.6) H 01/24/25 16:29
Absolute Basos (auto) 0.1 10^3/uL (0-0.2) 01/24/25 16:29
Immature Gran % 1.0 % (0-0.5) H 01/24/25 16:29
Neutrophils % 73.8 % (42.2-75.2) 01/24/25 16:29
Lymphocytes % 18.5 % (20.5-51.1) L 01/24/25 16:29
Monocytes % 5.2 % (1.7-9.3) 01/24/25 16:29
Eosinophils % 1.0 % (0-6) 01/24/25 16:29
Basophils % 0.5 % (0-2) 01/24/25 16:29
Lactic Acid 1.3 mmol/L (0.7-2.0) 01/24/25 16:29
Ur Squamous Epith Cells 6-10 /LPF (Few) 01/25/25 00:53
Microbiology Results
Micro:
01/25/25 00:53 Urine Culture - Pending
Urine
01/24/25 19:45 Influenza Types A & B (ELIZ) - Final
Nasal Swab Negative for Influenza A & B, NAAT
Negative results must be combined with clinical observations
and patient history.
Nucleic Acid Amplification test (NAAT)performed on the
[employer] platform.
01/24/25 16:29 Blood Culture - Pending
Blood/Venous
01/24/25 16:30 Blood Culture - Pending
Blood/Venous
Imaging:
01/24/2025 CXR (portable): mild interstitial cardiogenic pulmonary edema. Moderate size left lower lobe airspace consolidation. Small left pleural effusion. Please see full dictation for additional detail. Film personally viewed.
Assessment / Plan
Leukocytosis
Hypoxemic respiratory failure; improved
Suspected PNA (aspiration) vs. flash pulmonary edema
Leukocytosis
CVA and paraplegia
Dysphagia
Atrial fibrillation
HTN
ESRD�HD
Erosive gastritis; Hx GIB
Hx C. difficile (08/2024)
Chronic sacral decubitus wounds
Recommendations:
Blood cultures currently pending.
Given clinical picture, doubt ability to collect sputum culture at this time.
Continue with empiric vancomycin and Zosyn.
Monitor white count and temperature curve.
Continue with Dakin's to the sacral decubiti to decrease overall topical bioburden.
Continue with frequent offloading of the sacral area. Given depth and comorbidities, doubt there is significant wound healing potential.
Continue with supportive measures.
Further recommendations as additional data is returned.
[2025-01-25] MEDS: MANNITOL 25% 12.5 GRAMS IV ×2 (12:20→14:08)
[2025-01-25] MEDS: FLEXBUMIN 25% FOR HEMODIALYSIS 12.5 GRAMS IV ×2 (12:25→14:08)
[2025-01-25] MEDS: DAKIN'S SOLUTION 0.125% 1/4 STRENGTH 473 ML TOPICAL (12:33)
--- NOTE | 2025-01-25 12:42 | WOUNDNOTE ---
PEG TUBE SITE
--- NOTE | 2025-01-25 12:42 | WOUNDNOTE ---
R MEDIAL ANKLE AND HEEL
--- NOTE | 2025-01-25 12:43 | WOUNDNOTE ---
SACRUM AND L ISCHIUM
--- NOTE | 2025-01-25 12:45 | WOUNDNOTE ---
WON RN note: Patient admitted with Pneumonia, hypoxia. Patient admitted from [facility].
See H&P for complete history.
PMH: ESRD on HD, CVA with paraplegia, PEG, Trach, s/p trach removal, exploratory lap, NIDDM, L ischial and stage 4 sacral pressure injury.
Wound Location and type/assessment: Patient known to service, last seen 12/15/24 for stage 4 PIs. Each time admitted wounds become worse. Stage 4 sacral and L ischium pressure injury's, pink with yellow/brown necrotic tissue, + foul odor. Scattered
dermal ulcers buttocks/teddy sacral area r/t moisture. R ischium is intact. R heel and medial ankle with DTI's. L heel with discolored spots but no change from last admission. Using own fiber filled offloading heel boots. Peg tube site with tiny pink
open area, no drainage. Turned patient with assist of nurse and student nurse. Incontinent of soft lambert stool, skin care given. Reviewed I&D note, Dakin's dressings in agreement.
Appetite: Tube feeds.
Pressure redistribution devices in place: Centrella air bed. Foam turning wedges. Fiber filled heel boots.
Plan: Sacral and L ischial wound care done using Dakin's wet to dry dressing. Foams changed on heels and R medial ankle, offloading heel boots placed back on. Peg tube site skin prepped and drainage sponges changed.
Repositioned patient to R semi side lying position using foam turning wedge and pillows.
Despite preventative measures patient at high risk for worsening and additional pressure injuries due to comorbidities. MASD r/t ongoing diarrhea and soilage of wounds. Recommended to nurse Stevens if patient a candidate for internal Fecal
management system to apply. Care plan to be updated and will follow as needed.
Note to case management of equipment requested for discharge: Air mattress if not already in place.
Recommend follow up with wound health care marketing specialist upon discharge.
[2025-01-25] MEDS: RETACRIT 10000 UNITS IV (13:08)
--- NOTE | 2025-01-25 14:17 | W.PN.NEPH.HD ---
Assessment
-
Pt seen on HD. no complaints. VSS, access ok. BP low, so UF limited
Progress Note - Hemodialysis
-
Date of Service: January 25, 2025
Duration: 3 hours
Potassium Bath: 2
Calcium Bath: 2.5
Opti-Dialyzer: 160
Ultrafiltration: Other (2kg as allowed)
Blood Flow: 400
Dialysate Flow: 600
Heparin: 0
EPO: [id number] units
[2025-01-25 14:30] LABS: Hepatitis B Surface Antigen Negative (Negative)
--- NOTE | 2025-01-25 15:07 | PTCARENOTE ---
Pt remains on HD .
[2025-01-25] MEDS: HEPARIN 4300 UNITS INTRACATH (15:32)
--- NOTE | 2025-01-25 16:49 | CM ---
I.A: Completed By EVGENY Sullivan.
Patient is from [facility], total care, has a peg tube, on HD for dialysis, past CVA, non-verbal, and bedbound. Last admission referrals were made to other facilities in [facility] per request of sig-other and there were no accepting
facilities. Sig-other frustrated with [facility]. Sig Evie Mackey called today and told that the patient will go back to [facility] when ready and that is the ONLY plan from this hospital- she understood and said 'unfortunately, but I know he has to
go back'.
PLAN: Return to [facility].
--- NOTE | 2025-01-25 20:00 | PTCARENOTE ---
Pt is nonverbal and paraplegia - he is drowsy but more alert to verbal commands. VaG3=745 ON 2l. Lungs coarse with rhonchi, right side w/ faint expiratory wheeze. Mouth care completed. Tube Feeding running. Wound care completed. VSS. Pt continues
on [id number].
[2025-01-26] VITALS (36 sets, daily range): BP systolic 94–143; BP diastolic 39–62; BMI 28.8
[2025-01-26] MEDS: ZOSYN 50 IV ×3 (04:22→19:38)
[2025-01-26] MEDS: DAKIN'S SOLUTION 0.125% 1/4 STRENGTH 1 ML TOPICAL (06:36)
--- NOTE | 2025-01-26 07:00 | PTCARENOTE ---
Cannot verify VS captured from prior shift.
--- NOTE | 2025-01-26 07:50 | W.PN.HOSP.TC ---
Addendum entered and electronically signed by Jacqueline Edmonds MD 01/26/25 16:07:
stage 4 sacral and L ischium pressure injur
Addendum entered and electronically signed by Jacqueline Edmonds MD 01/26/25 10:02:
Chronic Sacral Wounds
-appreciate ID input and wound care
-patient with known stage 4 pressure injuries
Original Note:
Today's Communication/Plan
-
HD per Renal
awaiting AM CBC
Abx per ID, appreciate consult
Assessment / Plan
Assessment / Plan
This is a 59-year-old male with past medical history significant for CVA with residual paraplegia, status post trach and PEG, history of intra-abdominal abscess status post exploratory laparotomy without bowel resection, atrial fibrillation on
anticoagulation, omw-dkbglxd-mvqijwrgr diabetes, COPD, hypertension, ESRD on hemodialysis via right IJ PermCath brought to the emergency department from [facility] dialysis unit for severe hypoxic respiratory failure. Patient arrived from the
dialysis unit for hypoxia and was on 15 L nonrebreather and diaphoretic. He is nonverbal at baseline. He was also reported to have a fever.
CXR
IMPRESSION:
1. Mild interstitial cardiogenic pulmonary edema.
2. Moderate size left lower lobe airspace consolidation (either atelectasis or pneumonia).
3. Small left pleural effusion.
4. Right IJ hemodialysis catheter in place.
PLAN:
Acute Hypoxic respiratory failure
Left lower lobe pneumonia with leukocytosis and fever reported at dialysis
� Admitted to IMU
� follow up Blood cultures, covid and flu negative
� Start antibiotics with vancomycin and Zosyn to cover aspiration pneumonia and prior history of MRSA
� Respiratory suctioning as tolerated
� Nebs as needed
� ID consult appreciated
Hypotension
-responded to Midodrine
-BP currently stable during HD
Atrial fibrillation -rate controlled
- Currently in sinus and not requiring any rate control, off anticoagulation
- Monitor on telemetry
End-stage renal disease with CHF with preserved EF
- HD per Renal
History of GI bleed
- Continue PPI twice daily via PEG
DVT prophylaxis with heparin subcu
CODE STATUS�full code
updated
Anticipated Discharge: 24 - 48 hours
Subjective/Interval History
-
Date of Service: January 26, 2025
non-verbal
Objective Data
-
Labs:
Laboratory Results
01/26/25
07:00
WBC Pending
Hgb Pending
Hct Pending
Plt Count Pending
Sodium Pending
Potassium Pending
Chloride Pending
Carbon Dioxide Pending
Vital Signs:
Vital Signs
Temp Pulse Resp BP Pulse Ox
98.4 F 77 26 119/46 98
01/26/25 07:45 01/26/25 06:37 01/26/25 02:45 01/26/25 06:37 01/26/25 02:45
I&O
01/25/25 01/26/25 01/27/25
06:59 06:59 06:59
Intake Total 600 / 600 250 / 250
Output Total 1200 / 1200
Balance -600 / -600 250 / 250
Review of Systems
-
Unable to obtain full review of systems at this time due to: Patient Non-verbal
History Source: Patient
Physical Exam
-
General: Other (appears chronically ill, opens eyes to voice )
HEENT: PERRLA
Respiratory: Rhonchi
Cardiac: Regular Rhythm and S1/S2
GI: Soft, Nontender, Nondistended and Peg Tube
Musculoskeletal: No Edema
Neuro: Awake and Alert; Negative Oriented
Psych: Calm
Data Reviewed
-
Diagnostic Radiology: Report Reviewed by me
Labs: Labs Reviewed by me
[2025-01-26] MEDS: MYCOSTATIN ORAL SUSPENSION 10 ML PO ×3 (07:53→21:29)
[2025-01-26] MEDS: ZYLOPRIM 100 MG TUBE (07:53)
[2025-01-26] MEDS: HEPARIN 5000 UNITS SC ×2 (07:53→19:38)
--- NOTE | 2025-01-26 08:07 | W.PN.NEPH.HD ---
Assessment
-
Patient seen on HD
sbp 118 at current u/f
HD via catheter
Progress Note - Hemodialysis
-
Date of Service: January 26, 2025
Duration: 3 hours
Potassium Bath: 3
Calcium Bath: 2.5
Opti-Dialyzer: 160
Ultrafiltration: Other (2kg)
Blood Flow: 400
Dialysate Flow: 600
Heparin: none
EPO: 10K
[2025-01-26 08:24] LABS: Hematocrit 22.3 % (39.0-52.0); Hemoglobin 6.5 g/dL (13.0-18.0); Mean Corp Hgb Conc. 29.1 g/dL (33.0-37.0); Mean Corpuscular Volume 89.2 fL (80.0-94.0); Nucleated Red Blood Cells % 0 % (-); Platelet Count 299 10^3/uL (130-400); Red Cell Dist. Width 17.7 % (11.5-14.5)
[2025-01-26] MEDS: RETACRIT 10000 UNITS IV (09:07)
[2025-01-26 09:08] LABS: Hemoglobin 7.0 g/dL (13.0-18.0)
--- NOTE | 2025-01-26 10:00 | PHA.VAN.FU ---
Vancomycin Assessment / Plan
- Assessment
Hemodialysis Schedule: MWF
Last Hemodialysis performed: today 01/26
WBC's are: Trending Down
In the past 24 hrs, patient has been: Afebrile
Concomitant Antimicrobials: piperacillin/tazobactam
- Assessment - Therapeutic Drug Monitoring
Random Level: pre-HD = 17.5
- Dosing Plan
Adjust Regimen to: Vanc 750mg HD MWF - first dose today
- Monitoring Plan
No level(s) ordered at this time: consider next level for Friday or Friday
- Follow Up
Pharmacy will continue to follow.
Vancomycin Follow UP
- -
Patient Age: 59
Patient Sex: Male
Vancomycin Day #: 3
Indication: Pulmonary/Respiratory
Requesting Provider: Dr Linda Katz / Yair
Pertinent Antimicrobial Allergies:
NKDA
Height / Weight:
Height 5 ft 6 in
Actual Weight 81 kg
Pertinent Past Medical History: ESRD on HD MWF, DM, paraplegia (s/p CVA)
- Vital Signs / Lab Results
Temp Pulse Resp BP Pulse Ox
98.4 F 75 20 118/49 98
01/26/25 07:45 01/26/25 08:00 01/26/25 08:00 01/26/25 08:00 01/26/25 08:10
Lab Results - Hematology
01/24/25 01/25/25 01/26/25
16:29 06:14 07:59
WBC 24.1 H 18.9 H 15.1 H
Lab Results - Chemistry
01/24/25 01/25/25
16:29 06:14
BUN 63 H 70 H
Creatinine 3.4 H 3.6 H
Estimated Creat Clear 22
Albumin 2.7 L
01/24/25
16:29
Lactic Acid 1.3
Microbiology Results
01/25/25 00:53 Urine Culture - Final
Urine
01/24/25 16:30 Blood Culture - Preliminary
Blood/Venous Staphylococcus species
Gram Stain - Preliminary
01/24/25 16:29 Blood Culture - Preliminary
Blood/Venous No Growth in 24 hours- Final report to follow
01/24/25 19:45 Influenza Types A & B (ELIZ) - Final
Nasal Swab Negative for Influenza A & B, NAAT
Negative results must be combined with clinical observations
and patient history.
Nucleic Acid Amplification test (NAAT)performed on the
[employer] platform.
Therapeutic Drug Monitoring
Random Vancomycin 17.5 ug/ml 01/26/25 07:59
--- NOTE | 2025-01-26 10:10 | W.PN.ID1 ---
Date of Service
Date of Service: January 26, 2025
Today's Communication
Continue current antibiotics
Assessment / Plan
Leukocytosis
Hypoxemic respiratory failure; improved
Suspected PNA (aspiration) vs. flash pulmonary edema
Leukocytosis
CVA and paraplegia
Dysphagia
Atrial fibrillation
HTN
ESRD�HD
Erosive gastritis; Hx GIB
Hx C. difficile (08/2024)
Chronic sacral decubitus wounds
Recommendations:
Blood cultures with staph species (likely coag negative staph) in 1 of 4 bottles. May be contaminant, although patient with HD line.
Continue with empiric vancomycin and Zosyn.
Monitor white count and temperature curve.
Continue with Dakin's to the sacral decubiti to decrease overall topical bioburden. May consider Gen Sx eval to assess for need for debridement.
Continue with frequent offloading of the sacral area. Given depth of wounds and comorbidities, I doubt there is significant wound healing potential.
Continue with supportive measures.
Given current clinical picture, overall prognosis poor to nil for any return to meaningful quality of life.
����������������������������������������������������������
Chief Complaint
-: Leukocytosis
Subjective / Review of Systems
Patient seen and examined. Currently on hemodialysis.
Review of Systems: No Fever
Vital Signs / Physical Exam
Vital Signs
Vital Signs
Temp Pulse Resp BP Pulse Ox
98.4 F 75 20 118/49 98
01/26/25 07:45 01/26/25 08:00 01/26/25 08:00 01/26/25 08:00 01/26/25 08:10
Physical Exam
Constitutional: Comfortable, Chronically Ill and Non-toxic
Eyes: Sclera Anicteric
Cardiovascular: Regular Rate, S1/S2 and Murmur
Pulmonary: Clear, Non Labored and Other (Poor inspiratory effort.); Negative Wheezes
Gastrointestinal: Soft, Non Tender, Non Distended, Normal Bowel Sounds and Other (PEG in place.)
Skin: Warm; Negative Rash or Jaundice
Wound: Other (Sacral wound is dressed. Wound care Nurse photos reviewed. Candido noted.)
Neurological: Other (Eyes open and tracking. Patient nonverbal.)
Lines: HD Cath (Right ACW. Exit site without erythema)
Objective Data
Lab Data
Lab Results
01/26/25 08:53
Estimated Creat Clear 22 ml/min 01/25/25 06:14
Lactic Acid 1.3 mmol/L (0.7-2.0) 01/24/25 16:29
Total Bilirubin 0.7 mg/dl (0.2-1.3) 01/24/25 16:29
AST 30 U/L (17-59) 01/24/25 16:29
ALT 23 U/L (0-50) 01/24/25 16:29
Alkaline Phosphatase 204 U/L (38-126) H 01/24/25 16:29
Most recent labs reviewed.
Micro Results:
01/25/25 00:53 Urine Culture - Final
Urine
01/24/25 16:30 Blood Culture - Preliminary
Blood/Venous Staphylococcus species
Gram Stain - Preliminary
01/26/25 08:53 Blood Culture - Pending
Blood/Venous
01/24/25 16:29 Blood Culture - Preliminary
Blood/Venous No Growth in 24 hours- Final report to follow
01/24/25 19:45 Influenza Types A & B (ELIZ) - Final
Nasal Swab Negative for Influenza A & B, NAAT
Negative results must be combined with clinical observations
and patient history.
Nucleic Acid Amplification test (NAAT)performed on the
[employer] platform.
Imaging:
01/24/2025 CXR (portable): mild interstitial cardiogenic pulmonary edema. Moderate size left lower lobe airspace consolidation. Small left pleural effusion. Please see full dictation for additional detail. Film personally viewed.
--- NOTE | 2025-01-26 10:15 | W.PN.UPDATE ---
Addendum entered and electronically signed by Jacqueline Edmodns MD 01/26/25 13:24:
* reports that she wants to continue with aggressive care, not ready for hospice.
GS consulted for evaluation for debridement of wounds.
Addendum entered and electronically signed by Jacqueline Edmonds MD 01/26/25 13:24:
Repeat Hg 7, OK to hold off on transfusion. Blood consent is signed in chart if Hg drops tomorrow. No e/o active bleeding.
Original Note:
Update Note
Progress Note Update
Per discussion with ID, given severity and slough on sacral wounds, GS consult warranted to consider debridement. I called patient's , Key. We discussed the GS consult with possibility of debridement (possible we would continue local care)
versus beginning discussions of comfort care to avoid suffering. Patient's would like to speak to family more today. I will call to further discuss this afternoon. For now we will hold off on GS consult.
[2025-01-26 10:18] LABS: Carbon Dioxide 30 mmol/L (22-30); Chloride 98 mmol/L (98-107); Potassium 2.7 mmol/L (3.5-5.1); Sodium 133 mmol/L (135-145)
[2025-01-26] MEDS: HEPARIN 3600 UNITS INTRACATH (10:28)
--- NOTE | 2025-01-26 10:52 | CM ---
F/U: Patient may need a debridement because his wound is bad so Hospital Team asking the Sig-Other if she wants to proceed or continue wound care. PLAN: Discharge to [facility]- No other plan and Sig-Other knows this.
--- NOTE | 2025-01-26 10:53 | PTCARENOTE ---
Pt with critical hgb. Dr Edmonds notified. Repeat lab drawn and sent Dr Edmonds notified of results. No further orders received at this time.
[2025-01-26] MEDS: PREVACID 30 MG TUBE ×2 (11:17→19:38)
[2025-01-26] MEDS: VANCOCIN 150 IV (11:17)
[2025-01-26] MEDS: ZOLOFT 25 MG TUBE (11:17)
[2025-01-26] MEDS: CARAFATE SUSPENSION 1 GM TUBE ×2 (11:17→19:38)
[2025-01-26] MEDS: KCL ELIXIR 40 MEQ TUBE (12:07)
--- NOTE | 2025-01-26 12:53 | PN.CDI ---
CDI
- -
CDI:
Physician Documentation Request
Admit Date: 01/24/25 21:32
Dear Doctor Kendal,
Progress note states 'chronic sacral wounds- patient with known stage 4 pressure injuries '
01/25 WOCN note states 'stage 4 sacral and L ischium pressure injury'
Physician documentation of the type and location of wounds is required for compliant documentation. Based on the above clinical findings and your assessment, please provide the following in your progress note:
Location of the ulcer/wound, including laterality
Use of terms such as suspected, likely, concern for, or probable (associated with a specific diagnosis that is being evaluated, monitored, or treated as if it exists) are acceptable and can be coded in the inpatient setting, when documented at the
time of discharge.
Thank you,
Ashley Mishra RN, BSN
CDI Specialist
tiger text
Please use your independent medical judgment in providing your response.
*Source: National Pressure Ulcer Advisory Panel (NPUAP)
--- NOTE | 2025-01-26 13:03 | PTCARENOTE ---
Received call from pt's . Pt's states she DOES NOT want hospice and DOES want debridement of pt's wounds. Dr. Edmonds notified via TT.
[2025-01-26] MEDS: KCL 260 MEQ IV (13:20)
--- NOTE | 2025-01-26 14:15 | CON.GS ---
Consultation
-
Date/Time Consultation Performed: 01/26/25
Requesting Provider: Kendal
Performing Provider: Lorraine
Reason for Consultation: Sacral and left ischial pressure wounds
Medical History
-
Chief Complaint: sacral and left ischial pressure wounds
History of Present Illness:
59M with hx CVA (nonverbal, paraplegic) and ESRD on HD admitted for severe hypoxic respiratory insufficiency. He does not participate in encounter, history obtained from chart. GS was consulted to eval pressure wounds.
Past Medical History
Past Medical History: Other (as per HPI)
Past Surgical History: Other (LUE AVF, PEG, ex lap)
Social History
Tobacco: Non-Smoker
Alcohol: None
Drug: None
Family History
Family History: Unable to Obtain
Allergies / Home Medications
Allergy/AdvReac Type Severity Reaction Status Date / Time
No Known Allergies Allergy Verified 01/24/25 15:53
�Medication �Instructions �Recorded �Confirmed �Type
acetaminophen 325 mg tablet 650 mg feeding tube DAILY mild Pain 11/22/24 01/24/25 History
(Tylenol)
allopurinol 100 mg tablet 100 mg feeding tube DAILY Gout 11/22/24 01/24/25 History
lorazepam 0.5 mg tablet 0.5 mg feeding tube BIDPRN PRN 11/22/24 01/24/25 History
AXNIETY
nystatin 100,000 unit/mL oral 10 ml buccal TID Infection 11/22/24 01/24/25 History
suspension
sertraline 25 mg tablet 25 mg feeding tube DAILY Mental 11/22/24 01/24/25 History
Health/Anxiety
acetaminophen 325 mg tablet 650 mg feeding tube Q6HPRN PRN 12/13/24 01/24/25 History
(Tylenol) mild pain
pantoprazole 40 mg granules 40 mg feeding tube BID gerd 12/13/24 01/24/25 History
delayed-release for susp in packet
sucralfate 100 mg/mL oral 1 g feeding tube BID gerd 12/13/24 01/24/25 History
suspension
bisacodyl 10 mg rectal suppository 10 mg OR DAILYPRN PRN if no bm 01/24/25 01/24/25 History
(Dulcolax (bisacodyl)) aftr sorbitol
inulin 5 gram/5.8 gram oral powder 5 g PO DAILY peg-tube 01/24/25 01/24/25 History
oxycodone 10 mg tablet 10 mg feeding tube BID PRN severe 01/24/25 01/24/25 History
pain
sorbitol 70 % solution 30 ml PO DAILYPRN PRN constipation 01/24/25 01/24/25 History
Review of Systems
-
Unable to obtain full review of systems at this time due to: Patient Non Verbal
Physical Exam
Vital Signs
Temp Pulse Resp BP Pulse Ox
98.3 F 78 24 112/46 98
01/26/25 11:23 01/26/25 12:00 01/26/25 12:00 01/26/25 12:00 01/26/25 12:25
01/25/25 01/26/25 01/27/25
06:59 06:59 06:59
Actual Weight 83.4 kg 81 kg
Body Mass Index (BMI) 28.8
Lab Results
01/26/25 08:53
WBC 15.1 10^3/uL (4.8-10.8) H 01/26/25 07:59
Hgb 7.0 g/dL (13.0-18.0) L 01/26/25 08:53
Hct 22.3 % (39.0-52.0) L 01/26/25 07:59
Plt Count 299 10^3/uL (130-400) 01/26/25 07:59
Abs Immat Gran (auto) 0.2 10^3/uL (0-0.05) H 01/26/25 07:59
Neutrophils % 76.2 % (42.2-75.2) H 01/26/25 07:59
Physical Exam
General: No Apparent Distress
HEENT: Other (opens eyes to verbal stimuli)
Rectal: Other (sacral pressure wound clean with granulation tissue, left ischial wound with soft medarno slough, no purulence, no erythema, there is stool soilage)
Neuro: Awake
Psych: Calm
Data Reviewed
-
Labs: Labs Reviewed by me
Assessment / Plan
-
59M bedbound ESRD with sacral and left ischial pressure wounds admitted for respiratory insufficiency
Wounds are not presently contributing to his presentation
Low potential for wound healing given bedbound status and TF, ESRD and chronic anemia
Poor operative candidate
Recommend local wound care, santyl, dakins if odor
D/w , recommended comfort care measures
--- NOTE | 2025-01-26 14:50 | PTCARENOTE ---
Pt's dressings soiled with stool. Wounds cleaned extensively and new dressings applied- see wound care intervention.
[2025-01-26 19:12] LABS: Potassium 3.6 mmol/L (3.5-5.1)
--- NOTE | 2025-01-26 20:41 | PTCARENOTE ---
assumed care of patient. pt is non-verbal. complete care, q2t. tube feeding infusing in peg tube, nepro carb steady @ 50ml/hr. pt is anuric. fiber filled boots on both heels. on 1L NC 100%, wound care noted, dressings cleaned per order. LUE fistula
with bruit and thrill. care ongoing.
--- NOTE | 2025-01-26 21:47 | PTCARENOTE ---
PENG notified of K results- 3.6. no new orders.
[2025-01-27] VITALS (11 sets, daily range): BP systolic 102–165; BP diastolic 48–80; BMI 28.2
[2025-01-27] MEDS: ZOSYN 50 IV ×3 (03:45→20:50)
[2025-01-27 05:46] LABS: Blood Urea Nitrogen 27 mg/dl (9-20); Calcium 8.3 mg/dl (8.4-10.2); Carbon Dioxide 31 mmol/L (22-30); Chloride 99 mmol/L (98-107); Estimated Creatinine Clearance 38 ml/min; Glucose 174 mg/dl (70-99); Potassium 3.4 mmol/L (3.5-5.1); Sodium 135 mmol/L (135-145); eGFR 40.13
--- NOTE | 2025-01-27 05:53 | PTCARENOTE ---
potassium level this AM, 3.4. 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
[2025-01-27 05:54] LABS: Hematocrit 22.4 % (39.0-52.0); Hemoglobin 7.0 g/dL (13.0-18.0); Mean Corp Hgb Conc. 31.3 g/dL (33.0-37.0); Mean Corpuscular Volume 87.2 fL (80.0-94.0); Platelet Count 346 10^3/uL (130-400); Red Cell Dist. Width 17.5 % (11.5-14.5)
--- NOTE | 2025-01-27 08:16 | W.PN.NEPH.PH ---
Today's Communication / Plan
-
HD friday
Assessment/Plan
-
IMP:
Anemia
ESRD on HD-MWF [facility]
left UE AVF
right chest wall catheter
Dysphagia on PEG
Hx of CVA with residual aphasia and paraplegia
Urine retention
Diabetes mellitus type 2
Plan:
HD friday given holiday schedule
NIVIA on dialysis
-
-
Date of Service: January 27, 2025
CC / HPI / ROS
-
Chief Complaint:
ESRD
History of Present Illness:
tolerated HD yesterday
BP low stable
Hgb low 7.0
Review of Systems:
noncommunicative
Labs
-
Labs:
WBC 13.8 10^3/uL (4.8-10.8) H 01/27/25 04:55
RBC 2.57 10^6/uL (4.70-6.10) L 01/27/25 04:55
Hgb 7.0 g/dL (13.0-18.0) L 01/27/25 04:55
Hct 22.4 % (39.0-52.0) L 01/27/25 04:55
Plt Count 346 10^3/uL (130-400) 01/27/25 04:55
Sodium 135 mmol/L (135-145) 01/27/25 04:53
Potassium 3.4 mmol/L (3.5-5.1) L 01/27/25 04:53
Chloride 99 mmol/L (98-107) 01/27/25 04:53
Carbon Dioxide 31 mmol/L (22-30) H 01/27/25 04:53
BUN 27 mg/dl (9-20) H 01/27/25 04:53
Creatinine 1.9 mg/dL (0.7-1.3) H 01/27/25 04:53
eGFR 40.13 01/27/25 04:53
Glucose 174 mg/dl (70-99) H 01/27/25 04:53
Calcium 8.3 mg/dl (8.4-10.2) L 01/27/25 04:53
Lga-C-Ieztenhajdp Pept 71123 pg/ml 01/24/25 16:29
Albumin 2.7 g/dl (3.5-5.0) L 01/24/25 16:29
Physical Exam
-
Vital Signs:
Vital Signs
Temp Pulse Resp BP Pulse Ox
98.7 F 76 27 128/57 98
01/27/25 07:22 01/27/25 06:00 01/27/25 06:00 01/27/25 06:00 01/27/25 06:00
Cardiovascular:: Regular rate and rhythm
Respiratory:: Bilateral: Coarse
Lung Excursion:: Normal
Abdomen:: Nontender and Soft
Bowel Sounds:: Normal
Extremity Edema:: None: Bilateral:
--- NOTE | 2025-01-27 08:16 | PTCARENOTE ---
Pt dependant for all care. TF Nepro at 50 no water flush. L ft IV , R IJ perma cath for HD. PT on 1 liter as he desats . Pt does track voices at times.
[2025-01-27] MEDS: HEPARIN 5000 UNITS SC ×2 (09:06→20:50)
[2025-01-27] MEDS: MYCOSTATIN ORAL SUSPENSION 10 ML PO ×3 (09:06→20:51)
[2025-01-27] MEDS: ZYLOPRIM 100 MG TUBE (09:06)
[2025-01-27] MEDS: PREVACID 30 MG TUBE ×2 (09:07→20:50)
[2025-01-27] MEDS: ZOLOFT 25 MG TUBE (09:07)
[2025-01-27] MEDS: CARAFATE SUSPENSION 1 GM TUBE ×2 (09:07→20:50)
--- NOTE | 2025-01-27 09:13 | PHA.VAN.FU ---
Vancomycin Assessment / Plan
- Assessment
Hemodialysis Schedule: MWF
WBC's are: Trending Down
In the past 24 hrs, patient has been: Afebrile
Concomitant Antimicrobials: piperacillin/tazobactam
- Monitoring Plan
Random Level: Pre-HD level-01/28 in am
- Follow Up
Pharmacy will continue to follow.
Vancomycin Follow UP
- -
Patient Age: 59
Patient Sex: Male
Vancomycin Day #: 4
Indication: Pulmonary/Respiratory
Requesting Provider: Dr Linda Katz / Yair
Pertinent Antimicrobial Allergies:
NKDA
Height / Weight:
Height 5 ft 6 in
Actual Weight 79.2 kg
Pertinent Past Medical History: ESRD on HD MWF, DM, paraplegia (s/p CVA)
- Vital Signs / Lab Results
Temp Pulse Resp BP Pulse Ox
98.7 F 76 27 128/57 98
01/27/25 07:22 01/27/25 06:00 01/27/25 06:00 01/27/25 06:00 01/27/25 06:00
Lab Results - Hematology
01/24/25 01/25/25 01/26/25
16:29 06:14 07:59
WBC 24.1 H 18.9 H 15.1 H
01/27/25 01/27/25
04:46 04:55
WBC Cancelled 13.8 H
Lab Results - Chemistry
01/24/25 01/25/25 01/27/25
16:29 06:14 04:53
BUN 63 H 70 H 27 H
Creatinine 3.4 H 3.6 H 1.9 H
Estimated Creat Clear 22 38
Albumin 2.7 L
01/24/25
16:29
Lactic Acid 1.3
Microbiology Results
01/26/25 08:53 Blood Culture - Preliminary
Blood/Venous No Growth in 24 hours- Final report to follow
01/24/25 16:30 Blood Culture - Preliminary
Blood/Venous Coagulase neg. staphylococcus
Gram Stain - Preliminary
01/24/25 16:29 Blood Culture - Preliminary
Blood/Venous No Growth in 48 hours- Final report to follow
01/25/25 00:53 Urine Culture - Final
Urine
Therapeutic Drug Monitoring
Random Vancomycin 17.5 ug/ml 01/26/25 07:59
--- NOTE | 2025-01-27 10:27 | W.PN.HOSP.TC ---
Today's Communication/Plan
-
Blood with HD tomorrow
Antibiotics
Wound care
Assessment / Plan
Assessment / Plan
This is a 59-year-old male with past medical history significant for CVA with residual paraplegia, status post trach and PEG, history of intra-abdominal abscess status post exploratory laparotomy without bowel resection, atrial fibrillation on
anticoagulation, pgj-hcuwgwa-wogoeewes diabetes, COPD, hypertension, ESRD on hemodialysis via right IJ PermCath brought to the emergency department from [facility] dialysis unit for severe hypoxic respiratory failure. Patient arrived from the
dialysis unit for hypoxia and was on 15 L nonrebreather and diaphoretic. He is nonverbal at baseline. He was also reported to have a fever.
CXR
IMPRESSION:
1. Mild interstitial cardiogenic pulmonary edema.
2. Moderate size left lower lobe airspace consolidation (either atelectasis or pneumonia).
3. Small left pleural effusion.
4. Right IJ hemodialysis catheter in place.
Echo-12/17/2024-normal LV size, wall thickness and systolic function. EF 55%. RV size and systolic function within normal limits. Mild aortic sclerosis with no significant stenosis or regurgitation. Mild thickening of the mitral valve leaflets
with redundant chordal structures. Trace MR. Aortic root borderline dilated. No evidence of endocarditis on transthoracic echo.
CVS: S1-S2 normal, SSM at apex
Chest: CTA B/L bases, decresed BS
Abdomen: Soft, NT Bowel sounds present
Extremities: No edema
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
#Acute Hypoxic respiratory failure
Left lower lobe pneumonia with leukocytosis and fever reported at dialysis
� Covid and flu negative
- 1 set of blood cultures with coagulase-negative Staphylococcus-likely contaminant
� Continue with vancomycin and Zosyn to cover aspiration pneumonia and prior history of MRSA
� Respiratory suctioning as tolerated
� Nebs as needed
� ID consult appreciated
# Anemia-heme test stools,Will transfuse one unit with HD tomorrow. Ordered.
# Abnormal urinalysis--cultures are negative
# Hypotension
-Responded to Midodrine
-BP currently stable during HD
# Paroxysmal atrial fibrillation -rate controlled
- Currently in sinus and not requiring any rate control, off anticoagulation
- Monitor on telemetry
- There was a strip today- Abnormal rhythm- looked like artifact ( Not on both lead tracings)
# End-stage renal disease with CHF with preserved EF- HD per Renal
# Hypokalemia-to be corrected with dialysis
# Hyponatremia-improved
# Chronic HFpEF
# History of GI bleed- Continue PPI twice daily via PEG
# Xzjdogcs-Eivu-Ndhey ordered. Hemoglobin A1c 1 wont be accurate with anemia
# Anxiety-on lorazepam 0.5 mg twice daily as needed, sertraline
# Chronic pain-opiate dependence-on oxycodone 10 mg twice daily as needed
# GERD-continue PPI and Carafate
# History of gout-continue allopurinol
# Stage IV sacral decubitus ulcer, left ischium pressure injury, right heel and medial ankle with DTI's, left heel with discoloration probably stage I, PEG tube site with tiny pink open area-or present on admission-continue wound care.
Wounds were evaluated by surgeon who does not feel needs debridement.
# Right hemiplegia following a stroke. Look like has cognitive dysfunction as well.
# History of C. difficile
# Bedbound status
# Hypoalbuminemia
# Nutrition-via PEG tube
# DVT prophylaxis with heparin subcutaneous
# CODE STATUS�full code
Poor prognosis with all the above comorbidities and stage 4 ulcer, Poor cognition
Called and left a message for to discuss.
D/W RN at bed side.
Part of this note was created using voice recognition system. Occasional wrong word or��sound alike� substitutions may have inadvertently occurred due to the inherent limitations of voice recognition software. If noted kindly bring it to my
attention for correction.
Anticipated Discharge: 24 - 48 hours
Subjective/Interval History
-
Date of Service: January 27, 2025
Objective Data
-
Labs:
Laboratory Results
01/27/25 01/27/25 01/27/25
04:46 04:53 04:55
WBC Cancelled 13.8 H
Hgb Cancelled 7.0 L
Hct Cancelled 22.4 L
Plt Count Cancelled 346
Sodium 135
Potassium 3.4 L
Chloride 99
Carbon Dioxide 31 H
BUN 27 H
Creatinine 1.9 H
Glucose 174 H
Calcium 8.3 L
Vital Signs:
Vital Signs
Temp Pulse Resp BP Pulse Ox
98.7 F 76 27 128/57 98
01/27/25 07:22 01/27/25 06:00 01/27/25 06:00 01/27/25 06:00 01/27/25 06:00
I&O
01/26/25 01/27/25 01/28/25
06:59 06:59 06:59
Intake Total 250 / 250 1100 / 1100
Balance 250 / 250 1100 / 1100
[2025-01-27 11:34] LABS: Iron 28 ug/dl (49-181)
[2025-01-27 11:44] LABS: Total Iron Binding Capacity 99 ug/dl (261-462)
--- NOTE | 2025-01-27 13:34 | W.PN.ID1 ---
Date of Service
Date of Service: January 27, 2025
Today's Communication
DC Vancomycin.
Continue Zosyn.
Assessment / Plan
Leukocytosis - improving
Hypoxemic respiratory failure; improved
Suspected PNA (aspiration) vs. flash pulmonary edema
CVA and paraplegia
Dysphagia
Atrial fibrillation
HTN
ESRD�HD
Erosive gastritis; Hx GIB
Hx C. difficile (08/2024)
Chronic sacral decubitus wounds
Recommendations:
Blood cultures with coag neg staph in 1 of 4 bottles = contaminant
DC Vancomycin.
Continue with empiric Zosyn.
Monitor white count and temperature curve.
Continue with Dakin's to the sacral decubiti to decrease overall topical bioburden. Per surgery, no need for surgical intervention.
Continue with frequent offloading of the sacral area. Given depth of wounds and comorbidities, I doubt there is significant wound healing potential.
Continue with supportive measures.
Given current clinical picture, overall prognosis poor to nil for any return to meaningful quality of life.
����������������������������������������������������������
Chief Complaint
-: Leukocytosis
Subjective / Review of Systems
Nonverbal
Vital Signs / Physical Exam
Vital Signs
Vital Signs
Temp Pulse Resp BP Pulse Ox
98.7 F 71 22 122/57 98
01/27/25 11:12 01/27/25 10:00 01/27/25 10:00 01/27/25 10:00 01/27/25 10:00
Physical Exam
Constitutional: Comfortable and Chronically Ill
Eyes: Sclera Anicteric
Cardiovascular: Regular Rate and S1/S2
Pulmonary: Clear (anteriorly)
Gastrointestinal: Soft, Non Tender, Non Distended, Normal Bowel Sounds and Other (PEG in place.)
Wound: Other (Wound care Nurse photos reviewed. Candido noted. )
Neurological: Other (Eyes open and tracking. Patient nonverbal.)
Lines: HD Cath (Right ACW. Exit site without erythema)
Objective Data
Lab Data
Lab Results
01/27/25 04:55
01/27/25 04:53
Estimated Creat Clear 38 ml/min 01/27/25 04:53
Lactic Acid 1.3 mmol/L (0.7-2.0) 01/24/25 16:29
Total Bilirubin 0.7 mg/dl (0.2-1.3) 01/24/25 16:29
AST 30 U/L (17-59) 01/24/25 16:29
ALT 23 U/L (0-50) 01/24/25 16:29
Alkaline Phosphatase 204 U/L (38-126) H 01/24/25 16:29
Most recent labs reviewed.
Micro Results:
01/26/25 08:53 Blood Culture - Preliminary
Blood/Venous No Growth in 24 hours- Final report to follow
01/24/25 16:30 Blood Culture - Preliminary
Blood/Venous Coagulase neg. staphylococcus
Gram Stain - Preliminary
01/24/25 16:29 Blood Culture - Preliminary
Blood/Venous No Growth in 48 hours- Final report to follow
01/25/25 00:53 Urine Culture - Final
Urine
01/24/25 19:45 Influenza Types A & B (ELIZ) - Final
Nasal Swab Negative for Influenza A & B, NAAT
Negative results must be combined with clinical observations
and patient history.
Nucleic Acid Amplification test (NAAT)performed on the
[employer] platform.
Imaging:
01/24/2025 CXR (portable): mild interstitial cardiogenic pulmonary edema. Moderate size left lower lobe airspace consolidation. Small left pleural effusion. Please see full dictation for additional detail. Film personally viewed.
--- NOTE | 2025-01-27 13:42 | W.PN.UPDATE ---
Addendum entered and electronically signed by Mechelle Hampton MD 01/27/25 13:51:
EKG and troponin ordered
Hemodynamically stable
Original Note:
Update Note
Progress Note Update
Rhythm strips noted
Will correct K
Add Mag level
Strips sent to Cardiology oncology radiation physician
reviewed. Looks like Artifact.
[2025-01-27] MEDS: KCL 260 MEQ IV (14:09)
--- NOTE | 2025-01-27 14:14 | PTCARENOTE ---
Pt having ventricular tachycardia EKG ordered trop ordered K earl infusing as ordered.
[2025-01-27 14:22] LABS: Vitamin B12 855 pg/ml (239-931)
[2025-01-27 14:53] LABS: Ferritin 1760.0 ng/ml (17.9-464.0)
[2025-01-27 15:18] LABS: Troponin I 0.031 ng/ml
[2025-01-27] MEDS: DAKIN'S SOLUTION 0.125% 1/4 STRENGTH 473 ML TOPICAL (16:27)
[2025-01-27] MEDS: TYLENOL 650 MG TUBE (21:01)
[2025-01-27 21:13] LABS: Glucose - Point of Care 210 mg/dl (70-99)
[2025-01-27 21:33] LABS: Troponin I 0.029 ng/ml
[2025-01-28] VITALS (11 sets, daily range): BP systolic 125–154; BP diastolic 51–76; BMI 28.6
[2025-01-28] MEDS: ZOSYN 50 IV ×3 (04:54→21:32)
[2025-01-28 08:23] LABS: Glucose - Point of Care 206 mg/dl (70-99)
[2025-01-28] MEDS: MYCOSTATIN ORAL SUSPENSION 10 ML PO ×3 (08:30→21:32)
[2025-01-28] MEDS: ZYLOPRIM 100 MG TUBE (08:30)
[2025-01-28] MEDS: CARAFATE SUSPENSION 1 GM TUBE ×2 (08:30→21:32)
[2025-01-28] MEDS: PREVACID 30 MG TUBE ×2 (08:30→21:32)
[2025-01-28] MEDS: ZOLOFT 25 MG TUBE (08:30)
[2025-01-28] MEDS: HEPARIN 5000 UNITS SC ×2 (08:31→21:32)
[2025-01-28] MEDS: DAKIN'S SOLUTION 0.125% 1/4 STRENGTH 473 ML TOPICAL (08:31)
--- NOTE | 2025-01-28 08:50 | PTCARENOTE ---
Patient received from shift commander. Patient resting comfortably in bed. AAO to voice (can track and nod at times), VSS. No events noted overnight. No visible complaints of pain at this time. Patient currently getting TubeFeed Nepro @ 50mL/hr
with no water flush. Wound dressing done overnight, will change as needed for drainage/soiling. HD tomorrow per how orders are. No testing scheduled at this time. Call bourgeois in reach.
--- NOTE | 2025-01-28 09:17 | W.PN.HOSP.TC ---
Today's Communication/Plan
-
Blood transfusion today with dialysis
Called and left a message for significant other
Continue antibiotics
Aspiration precautions
Assessment / Plan
Assessment / Plan
This is a 59-year-old male with past medical history significant for CVA with residual paraplegia, status post trach and PEG, history of intra-abdominal abscess status post exploratory laparotomy without bowel resection, atrial fibrillation on
anticoagulation, njt-djfwncc-sdvhhdjjf diabetes, COPD, hypertension, ESRD on hemodialysis via right IJ PermCath brought to the emergency department from [facility] dialysis unit for severe hypoxic respiratory failure. Patient arrived from the
dialysis unit for hypoxia and was on 15 L nonrebreather and diaphoretic. He is nonverbal at baseline. He was also reported to have a fever.
CXR
IMPRESSION:
1. Mild interstitial cardiogenic pulmonary edema.
2. Moderate size left lower lobe airspace consolidation (either atelectasis or pneumonia).
3. Small left pleural effusion.
4. Right IJ hemodialysis catheter in place.
Echo-12/17/2024-normal LV size, wall thickness and systolic function. EF 55%. RV size and systolic function within normal limits. Mild aortic sclerosis with no significant stenosis or regurgitation. Mild thickening of the mitral valve leaflets
with redundant chordal structures. Trace MR. Aortic root borderline dilated. No evidence of endocarditis on transthoracic echo.
CVS: S1-S2 normal, SSM at apex
Chest: CTA B/L bases, decresed BS
Abdomen: Soft, NT , Bowel sounds present, PEG
Extremities: No edema
PRICK STITCHER: Awake, Not following directions.
#Acute Hypoxic respiratory failure
Left lower lobe pneumonia with leukocytosis and fever reported at dialysis
� Covid and flu negative
- 1 set of blood cultures with coagulase-negative Staphylococcus-likely contaminant
� Continue Zosyn to cover aspiration pneumonia
� Respiratory suctioning as tolerated
� Nebs as needed
� ID consult appreciated
# Anemia-heme test stools,Will transfuse one unit with HD . Ordered.
# Abnormal urinalysis--cultures are negative
# Hypotension
-Responded to Midodrine
-BP currently stable during HD
# Paroxysmal atrial fibrillation -rate controlled
- Currently in sinus and not requiring any rate control, off anticoagulation as OP
- Monitor on telemetry
# End-stage renal disease with CHF with preserved EF- HD per Renal
# Hypokalemia- corrected
# Hyponatremia-improved
# Chronic HFpEF
# History of GI bleed- Continue PPI twice daily via PEG
# Mkjbdzhv-Aoqy-Mctud ordered. Hemoglobin A1c wont be accurate with anemia
# Anxiety-on lorazepam 0.5 mg twice daily as needed, sertraline
# Chronic pain-opiate dependence-on oxycodone 10 mg twice daily as needed
# GERD-continue PPI and Carafate
# History of gout-continue allopurinol
# Stage IV sacral decubitus ulcer, left ischium pressure injury, right heel and medial ankle with DTI's, left heel with discoloration probably stage I, PEG tube site with tiny pink open area-or present on admission-continue wound care.
Wounds were evaluated by surgeon who does not feel needs debridement.
# Right hemiplegia following a stroke. Look like has cognitive dysfunction as well.
# History of C. difficile
# Bedbound status
# Hypoalbuminemia
# Nutrition-via PEG tube
# DVT prophylaxis with heparin subcutaneous
# CODE STATUS�full code
Poor prognosis with all the above comorbidities and stage 4 ulcer, Poor cognition
D/W RN at bed side.
Called and left a message for Ms. Alex yesterday and today.
Called sister Roxana-went to message also
Part of this note was created using voice recognition system. Occasional wrong word or��sound alike� substitutions may have inadvertently occurred due to the inherent limitations of voice recognition software. If noted kindly bring it to my
attention for correction.
Anticipated Discharge: 24 - 48 hours
Subjective/Interval History
-
Date of Service: January 28, 2025
Objective Data
-
Labs:
Laboratory Results
01/28/25
06:00
WBC Pending
Hgb Pending
Hct Pending
Plt Count Pending
Vital Signs:
Vital Signs
Temp Pulse Resp BP Pulse Ox
97.9 F 75 23 142/59 100
01/28/25 08:09 01/28/25 06:00 01/28/25 06:00 01/28/25 06:00 01/28/25 06:00
I&O
01/27/25 01/28/25 01/29/25
06:59 06:59 06:59
Intake Total 1100 / 1100 895 / 895
Output Total 0 / 0
Balance 1100 / 1100 895 / 895
--- NOTE | 2025-01-28 10:26 | W.PN.ID1 ---
Date of Service
Date of Service: January 28, 2025
Today's Communication
Continue Zosyn.
Assessment / Plan
Leukocytosis - improving
Hypoxemic respiratory failure; improved
Suspected PNA (aspiration) vs. flash pulmonary edema
CVA and paraplegia
Dysphagia
Atrial fibrillation
HTN
ESRD�HD
Erosive gastritis; Hx GIB
Hx C. difficile (08/2024)
Chronic sacral decubitus wounds
Recommendations:
Blood cultures with coag neg staph in 1 of 4 bottles = contaminant
Vancomycin discontinued.
Continue with empiric Zosyn (d#5)
Monitor white count and temperature curve.
Continue with Dakin's to the sacral decubiti to decrease overall topical bioburden. Per surgery, no need for surgical intervention.
Continue with frequent offloading of the sacral area. Given depth of wounds and comorbidities, I doubt there is significant wound healing potential.
Continue with supportive measures.
Given current clinical picture, overall prognosis poor to nil for any return to meaningful quality of life.
����������������������������������������������������������
Chief Complaint
-: Leukocytosis and Bacteremia
Subjective / Review of Systems
Review of Systems: No Fever
Vital Signs / Physical Exam
Vital Signs
Vital Signs
Temp Pulse Resp BP Pulse Ox
97.9 F 75 23 142/59 100
01/28/25 08:09 01/28/25 06:00 01/28/25 06:00 01/28/25 06:00 01/28/25 06:00
Physical Exam
Constitutional: Comfortable and Chronically Ill
Eyes: Sclera Anicteric
Cardiovascular: Regular Rate and S1/S2
Pulmonary: Clear (anteriorly)
Gastrointestinal: Soft, Non Tender, Non Distended, Normal Bowel Sounds and Other (PEG in place.)
Wound: Other (Sacral/buttock wounds dressed. Wound care Nurse photos reviewed. Candido noted. )
Neurological: Other (Eyes open and tracking. Patient nonverbal.)
Lines: HD Cath (Right ACW. Exit site without erythema)
Objective Data
Lab Data
Lab Results
01/27/25 04:53
Estimated Creat Clear 38 ml/min 01/27/25 04:53
Lactic Acid 1.3 mmol/L (0.7-2.0) 01/24/25 16:29
Total Bilirubin 0.7 mg/dl (0.2-1.3) 01/24/25 16:29
AST 30 U/L (17-59) 01/24/25 16:29
ALT 23 U/L (0-50) 01/24/25 16:29
Alkaline Phosphatase 204 U/L (38-126) H 01/24/25 16:29
Most recent labs reviewed.
Micro Results:
01/26/25 08:53 Blood Culture - Preliminary
Blood/Venous No Growth in 48 hours- Final report to follow
01/24/25 16:29 Blood Culture - Preliminary
Blood/Venous No Growth in 72 hours- Final report to follow
01/24/25 16:30 Blood Culture - Preliminary
Blood/Venous Coagulase neg. staphylococcus
Gram Stain - Preliminary
01/25/25 00:53 Urine Culture - Final
Urine
01/24/25 19:45 Influenza Types A & B (ELIZ) - Final
Nasal Swab Negative for Influenza A & B, NAAT
Negative results must be combined with clinical observations
and patient history.
Nucleic Acid Amplification test (NAAT)performed on the
[employer] NOW platform.
Imaging:
01/24/2025 CXR (portable): mild interstitial cardiogenic pulmonary edema. Moderate size left lower lobe airspace consolidation. Small left pleural effusion. Please see full dictation for additional detail. Film personally viewed.
--- NOTE | 2025-01-28 11:10 | W.PN.NEPH.PH ---
Today's Communication / Plan
-
HD tomorrow
Assessment/Plan
-
IMP:
Anemia
ESRD on HD-F [facility]
left UE AVF
right chest wall catheter
Dysphagia on PEG
Hx of CVA with residual aphasia and paraplegia
Urine retention
Diabetes mellitus type 2
Plan:
HD friday given holiday schedule
NIVIA on dialysis
Transfuse as needed
-
-
Date of Service: January 28, 2025
CC / HPI / ROS
-
Chief Complaint:
ESRD
History of Present Illness:
tolerated HD Friday
BP low stable
Hgb low 7.0 yesterday
Remains on IV antibiotics for ulcers
Review of Systems:
noncommunicative
Labs
-
Labs:
Sodium 135 mmol/L (135-145) 01/27/25 04:53
Potassium 3.4 mmol/L (3.5-5.1) L 01/27/25 04:53
Chloride 99 mmol/L (98-107) 01/27/25 04:53
Carbon Dioxide 31 mmol/L (22-30) H 01/27/25 04:53
BUN 27 mg/dl (9-20) H 01/27/25 04:53
Creatinine 1.9 mg/dL (0.7-1.3) H 01/27/25 04:53
eGFR 40.13 01/27/25 04:53
Glucose 174 mg/dl (70-99) H 01/27/25 04:53
Calcium 8.3 mg/dl (8.4-10.2) L 01/27/25 04:53
Rdy-P-Noerxpdwzhi Pept 04622 pg/ml 01/24/25 16:29
Albumin 2.7 g/dl (3.5-5.0) L 01/24/25 16:29
Physical Exam
-
Vital Signs:
Vital Signs
Temp Pulse Resp BP Pulse Ox
97.9 F 75 23 142/59 100
01/28/25 08:09 01/28/25 06:00 01/28/25 06:00 01/28/25 06:00 01/28/25 06:00
Cardiovascular:: Regular rate and rhythm
Respiratory:: Bilateral: Coarse
Lung Excursion:: Normal
Abdomen:: Nontender and Soft
Bowel Sounds:: Normal
Extremity Edema:: None: Bilateral:
--- NOTE | 2025-01-28 12:02 | CM ---
F/U: Patient is getting a blood transfusion today with dialysis, on antibiotics, and on aspiration precautions. PLAN: Return to [facility], aware- NO exception to this.
[2025-01-28 17:11] LABS: Hematocrit 25.1 % (39.0-52.0); Hemoglobin 7.4 g/dL (13.0-18.0); Mean Corp Hgb Conc. 29.5 g/dL (33.0-37.0); Mean Corpuscular Volume 87.5 fL (80.0-94.0); Platelet Count 342 10^3/uL (130-400); Red Cell Dist. Width 17.8 % (11.5-14.5)
[2025-01-28 21:38] LABS: Glucose - Point of Care 196 mg/dl (70-99)
[2025-01-29] VITALS (36 sets, daily range): BP systolic 110–145; BP diastolic 49–67; BMI 28.9
--- NOTE | 2025-01-29 04:15 | PTCARENOTE ---
Pt assessed with CPOT during wound care. Pt given PRN medication, see MAY. Through out night Pt appearing to get sleep. Respirations even unlabored spo2 98-99% ra.
[2025-01-29] MEDS: ROXICODONE 10 MG TUBE (04:26)
[2025-01-29] MEDS: ZOSYN 50 IV ×3 (04:27→20:22)
--- NOTE | 2025-01-29 07:17 | PTCARENOTE ---
Pt continues to be grossly incont of stool. Pt stool getting into multiple wounds on Pt bottom. FINANCIAL SERVICES INTERN placed order for FMS. Now in place pt appearing to tolerate placement. Vitals stable at this time.
[2025-01-29] MEDS: MYCOSTATIN ORAL SUSPENSION 10 ML PO ×3 (07:32→21:21)
[2025-01-29] MEDS: HEPARIN 5000 UNITS SC ×2 (07:33→20:23)
[2025-01-29 08:03] LABS: Glucose - Point of Care 201 mg/dl (70-99)
--- NOTE | 2025-01-29 08:13 | W.PN.HOSP.TC ---
Today's Communication/Plan
-
transfuse 1 unit PRBC today with HD
IV Zosyn
likely approcahing DC in 1-2 days
Assessment / Plan
Assessment / Plan
This is a 59-year-old male with past medical history significant for CVA with residual paraplegia, status post trach and PEG, history of intra-abdominal abscess status post exploratory laparotomy without bowel resection, atrial fibrillation on
anticoagulation, dhw-lencueg-azdgelvgg diabetes, COPD, hypertension, ESRD on hemodialysis via right IJ PermCath brought to the emergency department from [facility] dialysis unit for severe hypoxic respiratory failure. Patient arrived from the
dialysis unit for hypoxia and was on 15 L nonrebreather and diaphoretic. He is nonverbal at baseline. He was also reported to have a fever.
CXR
IMPRESSION:
1. Mild interstitial cardiogenic pulmonary edema.
2. Moderate size left lower lobe airspace consolidation (either atelectasis or pneumonia).
3. Small left pleural effusion.
4. Right IJ hemodialysis catheter in place.
Echo-12/17/2024-normal LV size, wall thickness and systolic function. EF 55%. RV size and systolic function within normal limits. Mild aortic sclerosis with no significant stenosis or regurgitation. Mild thickening of the mitral valve leaflets
with redundant chordal structures. Trace MR. Aortic root borderline dilated. No evidence of endocarditis on transthoracic echo.
CVS: S1-S2 normal, SSM at apex
Chest: CTA B/L bases, decresed BS
Abdomen: Soft, NT , Bowel sounds present, PEG
Extremities: No edema
FOOD VENDOR: Awake, Not following directions.
Acute Hypoxic respiratory failure
Left lower lobe pneumonia with leukocytosis and fever reported at dialysis
� Covid and flu negative
- 1 set of blood cultures with coagulase-negative Staphylococcus-likely contaminant
� Continue Zosyn to cover aspiration pneumonia
� Respiratory suctioning as tolerated
� Nebs as needed
� ID consult appreciated
Acute on chronic anemia
Anemia of Inflammation
-1 unit PRBC to be given with HD today
Abnormal urinalysis--cultures are negative
Hypotension
-Responded to Midodrine
-BP currently stable during HD
Paroxysmal atrial fibrillation -rate controlled
- Currently in sinus and not requiring any rate control, off anticoagulation as OP
- Monitor on telemetry
Stage IV sacral decubitus ulcer, left ischium pressure injury, right heel and medial ankle with DTI's, left heel with discoloration probably stage I, PEG tube site with tiny pink open area-or present on admission
-continue local wound care.
-Wounds were evaluated by surgeon who does not feel needs debridement.
End-stage renal disease
-appreciate renal consult
-HD with renal
Hypokalemia- corrected
Hyponatremia-improved
Chronic HFpEF
History of GI bleed- Continue PPI twice daily via PEG
Apihissk-Jdzg-Dxlkb ordered. Hemoglobin A1c wont be accurate with anemia
Anxiety-on lorazepam 0.5 mg twice daily as needed, sertraline
Chronic pain-opiate dependence-on oxycodone 10 mg twice daily as needed
GERD-continue PPI and Carafate
History of gout-continue allopurinol
Right hemiplegia following a stroke. Look like has cognitive dysfunction as well.
History of C. difficile
Bedbound status
Hypoalbuminemia
Nutrition-via PEG tube
DVT prophylaxis with heparin subcutaneous
CODE STATUS�full code
Poor prognosis with all the above comorbidities and stage 4 ulcer, comfort care discussions had with on 01/26, would like to continue full code
Anticipated Discharge: 24 - 48 hours
Subjective/Interval History
-
Date of Service: January 29, 2025
non-verbal
Objective Data
-
Labs:
Laboratory Results
01/29/25
07:38
WBC Pending
Hgb Pending
Hct Pending
Plt Count Pending
Sodium Pending
Potassium Pending
Chloride Pending
Carbon Dioxide Pending
BUN Pending
Creatinine Pending
Glucose Pending
Calcium Pending
Vital Signs:
Vital Signs
Temp Pulse Resp BP Pulse Ox
98.1 F 70 14 127/60 99
01/29/25 07:22 01/29/25 07:30 01/29/25 06:11 01/29/25 07:30 01/29/25 06:11
I&O
01/28/25 01/29/25 01/30/25
06:59 06:59 06:59
Intake Total 895 / 895 1260 / 1260
Output Total 0 / 0
Balance 895 / 895 1260 / 1260
Review of Systems
-
Unable to obtain full review of systems at this time due to: Patient Non-verbal
Physical Exam
-
General: Other (appears chronically ill, opens eyes to voice )
HEENT: PERRLA
Respiratory: Rhonchi
Cardiac: Regular Rhythm and S1/S2
GI: Soft, Nontender, Nondistended and Peg Tube
Musculoskeletal: No Edema
Neuro: Awake and Alert; Negative Oriented
Psych: Calm
Data Reviewed
-
Diagnostic Radiology: Report Reviewed by me
Labs: Labs Reviewed by me
[2025-01-29 08:14] LABS: Hematocrit 23.5 % (39.0-52.0); Hemoglobin 6.6 g/dL (13.0-18.0); Mean Corp Hgb Conc. 28.1 g/dL (33.0-37.0); Mean Corpuscular Volume 89.7 fL (80.0-94.0); Platelet Count 321 10^3/uL (130-400); Red Cell Dist. Width 18.2 % (11.5-14.5)
[2025-01-29] MEDS: FLEXBUMIN 25% FOR HEMODIALYSIS 12.5 GRAMS IV (08:30)
[2025-01-29] MEDS: MANNITOL 25% 12.5 GRAMS IV (08:32)
[2025-01-29] MEDS: RETACRIT 10000 UNITS IV (08:33)
--- NOTE | 2025-01-29 08:50 | PTCARENOTE ---
Patient received from property maintenance supervisor. Patient resting comfortably in bed. AAO to voice (can track and nod at times), VSS. No events noted overnight. Continues with no visible complaints of pain at this time. Patient currently getting TubeFeed
Nepro @ 50mL/hr with no water flush. Wound dressing done overnight, will change as needed for drainage/soiling. HD today. Continuing ABX. No testing scheduled at this time. Call bourgeois in reach.
[2025-01-29 08:58] LABS: Blood Urea Nitrogen 59 mg/dl (9-20); Calcium 8.7 mg/dl (8.4-10.2); Carbon Dioxide 30 mmol/L (22-30); Chloride 101 mmol/L (98-107); Estimated Creatinine Clearance 22 ml/min; Glucose 186 mg/dl (70-99); Potassium 3.3 mmol/L (3.5-5.1); Sodium 136 mmol/L (135-145); eGFR 20.69
--- NOTE | 2025-01-29 09:02 | W.PN.ID1 ---
Date of Service
Date of Service: January 29, 2025
Today's Communication
Continue antibiotics.
Assessment / Plan
Leukocytosis - improving
Hypoxemic respiratory failure; improved
Suspected PNA (aspiration) vs. flash pulmonary edema
Anemia
CVA and paraplegia
Dysphagia
Atrial fibrillation
HTN
ESRD�HD
Erosive gastritis; Hx GIB
Hx C. difficile (08/2024)
Chronic sacral decubitus wounds
Recommendations:
Blood cultures with coag neg staph in 1 of 4 bottles = contaminant
Continue with empiric Zosyn (d#6)
Monitor white count and temperature curve.
Continue with Dakin's to the sacral decubiti to decrease overall topical bioburden. Per surgery, no need for surgical intervention.
Continue with frequent offloading of the sacral area. Given depth of wounds and comorbidities, wound healing will be difficult, if not impossible
Continue with supportive measures.
Given current clinical picture, overall prognosis poor to nil for any return to meaningful quality of life.
����������������������������������������������������������
Chief Complaint
-: Leukocytosis and Bacteremia
Subjective / Review of Systems
Patient seen and examined. No significant clinical changes from yesterday.
Review of Systems: No Fever
Vital Signs / Physical Exam
Vital Signs
Vital Signs
Temp Pulse Resp BP Pulse Ox
98.1 F 70 14 127/60 99
01/29/25 07:22 01/29/25 07:30 01/29/25 06:11 01/29/25 07:30 01/29/25 06:11
Physical Exam
Constitutional: Comfortable and Chronically Ill
Eyes: No Conjunctival Hemorrhage and Sclera Anicteric
Cardiovascular: Regular Rate and S1/S2; Negative S3/S4
Pulmonary: Clear (anteriorly) and Non Labored
Gastrointestinal: Soft, Non Tender, Non Distended, Normal Bowel Sounds and Other (PEG in place.)
Extremities: Negative Edema or Cyanosis
Wound: Other (Sacral/buttock wounds dressed. Wound care Nurse photos reviewed. Candido noted. )
Neurological: Other (Eyes open and tracking. Patient nonverbal.)
Lines: HD Cath (Right ACW. Exit site without erythema)
Objective Data
Lab Data
Lab Results
Laboratory Tests
01/26/25 01/27/25 01/28/25 01/29/25
07:59 04:55 17:00 07:38
WBC 15.1 H 13.8 H 12.4 H 12.0 H
01/29/25 07:38
01/29/25 07:38
Estimated Creat Clear 22 ml/min 01/29/25 07:38
Lactic Acid 1.3 mmol/L (0.7-2.0) 01/24/25 16:29
Total Bilirubin 0.7 mg/dl (0.2-1.3) 01/24/25 16:29
AST 30 U/L (17-59) 01/24/25 16:29
ALT 23 U/L (0-50) 01/24/25 16:29
Alkaline Phosphatase 204 U/L (38-126) H 01/24/25 16:29
Most recent labs reviewed.
Micro Results:
01/24/25 16:29 Blood Culture - Preliminary
Blood/Venous No Growth in 4 days- Final report to follow
01/26/25 08:53 Blood Culture - Preliminary
Blood/Venous No Growth in 48 hours- Final report to follow
01/24/25 16:30 Blood Culture - Preliminary
Blood/Venous Coagulase neg. staphylococcus
Gram Stain - Preliminary
01/25/25 00:53 Urine Culture - Final
Urine
01/24/25 19:45 Influenza Types A & B (ELIZ) - Final
Nasal Swab Negative for Influenza A & B, NAAT
Negative results must be combined with clinical observations
and patient history.
Nucleic Acid Amplification test (NAAT)performed on the
[employer] NOW platform.
Imaging:
01/24/2025 CXR (portable): mild interstitial cardiogenic pulmonary edema. Moderate size left lower lobe airspace consolidation. Small left pleural effusion. Please see full dictation for additional detail. Film personally viewed.
--- NOTE | 2025-01-29 09:08 | W.PN.NEPH.HD ---
Assessment
-
Pt seen on HD. no complaints. VSS, access ok
Progress Note - Hemodialysis
-
Date of Service: January 29, 2025
Duration: 30 minutes and 3 hours
Potassium Bath: 2
Calcium Bath: 2.5
Opti-Dialyzer: 160
Ultrafiltration: Other (2kg)
Blood Flow: 400
Dialysate Flow: 600
Heparin: 0
EPO: 0
[2025-01-29] MEDS: HEPARIN 4300 UNITS INTRACATH (11:17)
[2025-01-29 12:09] LABS: Glucose - Point of Care 161 mg/dl (70-99)
[2025-01-29] MEDS: CARAFATE SUSPENSION 1 GM TUBE ×2 (13:06→20:22)
[2025-01-29] MEDS: PREVACID 30 MG TUBE ×2 (13:06→20:22)
[2025-01-29] MEDS: ZYLOPRIM 100 MG TUBE (13:06)
[2025-01-29] MEDS: ZOLOFT 25 MG TUBE (13:07)
[2025-01-29] MEDS: DAKIN'S SOLUTION 0.125% 1/4 STRENGTH 473 ML TOPICAL (13:08)
[2025-01-29 13:49] LABS: Glycohemoglobin (HgbA1c) 5.4 % (4.0-5.9)
--- NOTE | 2025-01-29 15:49 | PTCARENOTE ---
Patient received from angledozer operator. Patient resting comfortably in bed. AAO to voice (can track and nod at times), VSS. No events noted overnight. Continues with no visible complaints of pain at this time. Patient currently getting TubeFeed
Nepro @ 50mL/hr with no water flush. Wound dressing done overnight, will change as needed for drainage/soiling. HD today. Continuing ABX. No testing scheduled at this time. Call bourgeois in reach.
[2025-01-30] VITALS (17 sets, daily range): BP systolic 98–141; BP diastolic 43–73; BMI 27.9
[2025-01-30] MEDS: ZOSYN 50 IV ×3 (03:56→20:36)
[2025-01-30 05:03] LABS: Blood Urea Nitrogen 37 mg/dl (9-20); Calcium 8.8 mg/dl (8.4-10.2); Carbon Dioxide 30 mmol/L (22-30); Chloride 102 mmol/L (98-107); Estimated Creatinine Clearance 34 ml/min; Glucose 191 mg/dl (70-99); Potassium 3.3 mmol/L (3.5-5.1); Sodium 136 mmol/L (135-145); eGFR 35.59
[2025-01-30 05:06] LABS: Hematocrit 27.5 % (39.0-52.0); Hemoglobin 8.4 g/dL (13.0-18.0); Mean Corp Hgb Conc. 30.5 g/dL (33.0-37.0); Mean Corpuscular Volume 89.9 fL (80.0-94.0); Platelet Count 348 10^3/uL (130-400); Red Cell Dist. Width 18.6 % (11.5-14.5)
[2025-01-30] MEDS: KLOR-CON 20 MEQ PO (05:36)
--- NOTE | 2025-01-30 07:55 | W.PN.HOSP.TC ---
Today's Communication/Plan
-
continue IV Zosyn
appreciate ID
anticipate DC back to [facility] after HD tomorrow (will have completed antibiotic course)
Assessment / Plan
Assessment / Plan
This is a 59-year-old male with past medical history significant for CVA with residual paraplegia, status post trach and PEG, history of intra-abdominal abscess status post exploratory laparotomy without bowel resection, atrial fibrillation on
anticoagulation, vef-yxnynym-pywegskxh diabetes, COPD, hypertension, ESRD on hemodialysis via right IJ PermCath brought to the emergency department from [facility] dialysis unit for severe hypoxic respiratory failure. Patient arrived from the
dialysis unit for hypoxia and was on 15 L nonrebreather and diaphoretic. He is nonverbal at baseline. He was also reported to have a fever.
CXR
IMPRESSION:
1. Mild interstitial cardiogenic pulmonary edema.
2. Moderate size left lower lobe airspace consolidation (either atelectasis or pneumonia).
3. Small left pleural effusion.
4. Right IJ hemodialysis catheter in place.
Echo-12/17/2024-normal LV size, wall thickness and systolic function. EF 55%. RV size and systolic function within normal limits. Mild aortic sclerosis with no significant stenosis or regurgitation. Mild thickening of the mitral valve leaflets
with redundant chordal structures. Trace MR. Aortic root borderline dilated. No evidence of endocarditis on transthoracic echo.
CVS: S1-S2 normal, SSM at apex
Chest: CTA B/L bases, decresed BS
Abdomen: Soft, NT , Bowel sounds present, PEG
Extremities: No edema
STUDIO PRODUCER: Awake, Not following directions.
Acute Hypoxic respiratory failure
Left lower lobe pneumonia with leukocytosis and fever reported at dialysis
� Covid and flu negative
- 1 set of blood cultures with coagulase-negative Staphylococcus-likely contaminant
� Continue Zosyn to cover aspiration pneumonia (today is day 6-7)
� Respiratory suctioning as tolerated
� Nebs as needed
� ID consult appreciated
- anticipate DC back to [facility] tomorrow after HD
Acute on chronic anemia
Anemia of Inflammation
-s/p 1 unit PRBC with HD on 01/29 - Hg > 8 this AM
Abnormal urinalysis--cultures are negative
Hypotension
-Responded to Midodrine
-BP currently stable during HD
Paroxysmal atrial fibrillation -rate controlled
- Currently in sinus and not requiring any rate control, off anticoagulation as OP
- Monitor on telemetry
Stage IV sacral decubitus ulcer, left ischium pressure injury, right heel and medial ankle with DTI's, left heel with discoloration probably stage I, PEG tube site with tiny pink open area-or present on admission
-continue local wound care.
-Wounds were evaluated by surgeon who does not feel needs debridement.
-fecal management system in place
End-stage renal disease
-appreciate renal consult
-HD with renal
Hypokalemia- corrected
Hyponatremia-improved
Chronic HFpEF
History of GI bleed- Continue PPI twice daily via PEG
Qslxrnyk-Zymt-Cbmdt ordered. Hemoglobin A1c wont be accurate with anemia
Anxiety-on lorazepam 0.5 mg twice daily as needed, sertraline
Chronic pain-opiate dependence-on oxycodone 10 mg twice daily as needed
GERD-continue PPI and Carafate
History of gout-continue allopurinol
Right hemiplegia following a stroke. Look like has cognitive dysfunction as well.
History of C. difficile
Bedbound status
Hypoalbuminemia
Nutrition-via PEG tube
DVT prophylaxis with heparin subcutaneous
CODE STATUS�full code
Poor prognosis with all the above comorbidities and stage 4 ulcer, comfort care discussions had with on 01/26, would like to continue full code
Anticipated Discharge: 24 - 48 hours
Subjective/Interval History
-
Date of Service: January 30, 2025
non-verbal
Objective Data
-
Labs:
Laboratory Results
01/30/25
04:10
WBC 14.7 H
Hgb 8.4 L D
Hct 27.5 L
Plt Count 348
Sodium 136
Potassium 3.3 L
Chloride 102
Carbon Dioxide 30
BUN 37 H
Creatinine 2.1 H
Glucose 191 H
Calcium 8.8
Vital Signs:
Vital Signs
Temp Pulse Resp BP Pulse Ox
98.9 F 84 26 104/46 98
01/30/25 07:29 01/30/25 05:00 01/30/25 05:00 01/30/25 05:00 01/30/25 01:00
I&O
01/29/25 01/30/25 01/31/25
06:59 06:59 06:59
Intake Total 1260 / 1260 1775 / 1775
Balance 1260 / 1260 1775 / 1775
Review of Systems
-
Unable to obtain full review of systems at this time due to: Patient Non-verbal
History Source: Patient
Physical Exam
-
General: Other (appears chronically ill, opens eyes to voice )
HEENT: PERRLA
Respiratory: Rhonchi
Cardiac: Regular Rhythm and S1/S2
GI: Soft, Nontender, Nondistended and Peg Tube
Musculoskeletal: No Edema
Neuro: Awake and Alert; Negative Oriented
Psych: Calm
Data Reviewed
-
Diagnostic Radiology: Report Reviewed by me
Labs: Labs Reviewed by me
--- NOTE | 2025-01-30 08:13 | W.PN.ID1 ---
Date of Service
Date of Service: January 30, 2025
Today's Communication
Continue antibiotics through today then discontinue and observe.
Assessment / Plan
Leukocytosis -slightly up today
Hypoxemic respiratory failure; improved
Suspected PNA (aspiration) vs. flash pulmonary edema
Anemia
CVA and paraplegia
Dysphagia
Atrial fibrillation
HTN
ESRD�HD
Erosive gastritis; Hx GIB
Hx C. difficile (08/2024)
Chronic sacral decubitus wounds
Recommendations:
Blood cultures with coag neg staph in 1 of 4 bottles = contaminant
Continue with empiric Zosyn (d#7) through today then discontinue and observe.
Monitor white count and temperature curve.
Continue with Dakin's to the sacral/buttock decubiti to decrease overall topical bioburden. Per surgery, no need for surgical intervention.
Continue with frequent offloading of the sacral area. Given depth of wounds and comorbidities, wound healing will be difficult, if not impossible.
Continue with supportive measures.
Given current clinical picture, overall prognosis poor to nil for any return to meaningful quality of life.
����������������������������������������������������������
Chief Complaint
-: Leukocytosis and Bacteremia
Subjective / Review of Systems
Patient seen and examined. No reported issues overnight.
Vital Signs / Physical Exam
Vital Signs
Vital Signs
Temp Pulse Resp BP Pulse Ox
98.9 F 84 26 104/46 98
01/30/25 07:29 01/30/25 05:00 01/30/25 05:00 01/30/25 05:00 01/30/25 01:00
Physical Exam
Constitutional: No Acute Distress, Comfortable and Chronically Ill
Cardiovascular: Regular Rate and S1/S2; Negative S3/S4
Pulmonary: Clear (anteriorly) and Non Labored
Gastrointestinal: Soft, Non Tender, Non Distended, Normal Bowel Sounds and Other (PEG in place. FMS in place.)
Extremities: Negative Edema or Cyanosis
Wound: Other (Sacral/buttock wounds dressed. Wound care Nurse photos reviewed. Candido noted. )
Neurological: Other (Eyes open and tracking. Patient nonverbal.)
Lines: HD Cath (Right ACW. Exit site without erythema)
Objective Data
Lab Data
Lab Results
01/30/25 04:10
01/30/25 04:10
Estimated Creat Clear 34 ml/min 01/30/25 04:10
Lactic Acid 1.3 mmol/L (0.7-2.0) 01/24/25 16:29
Total Bilirubin 0.7 mg/dl (0.2-1.3) 01/24/25 16:29
AST 30 U/L (17-59) 01/24/25 16:29
ALT 23 U/L (0-50) 01/24/25 16:29
Alkaline Phosphatase 204 U/L (38-126) H 01/24/25 16:29
Most recent labs reviewed.
Micro Results:
01/24/25 16:29 Blood Culture - Final
Blood/Venous No Growth - Final Report
01/26/25 08:53 Blood Culture - Preliminary
Blood/Venous No Growth in 72 hours- Final report to follow
01/24/25 16:30 Blood Culture - Preliminary
Blood/Venous Coagulase neg. staphylococcus
Gram Stain - Preliminary
01/25/25 00:53 Urine Culture - Final
Urine
01/24/25 19:45 Influenza Types A & B (ELIZ) - Final
Nasal Swab Negative for Influenza A & B, NAAT
Negative results must be combined with clinical observations
and patient history.
Nucleic Acid Amplification test (NAAT)performed on the
[employer] platform.
Imaging:
01/24/2025 CXR (portable): mild interstitial cardiogenic pulmonary edema. Moderate size left lower lobe airspace consolidation. Small left pleural effusion. Please see full dictation for additional detail.
Care Review
Plan reviewed with: Physician (Hospitalist)
[2025-01-30] MEDS: HEPARIN 5000 UNITS SC ×2 (08:55→20:36)
[2025-01-30] MEDS: CARAFATE SUSPENSION 1 GM TUBE ×2 (08:55→20:36)
[2025-01-30] MEDS: MYCOSTATIN ORAL SUSPENSION 10 ML PO ×3 (08:55→22:14)
[2025-01-30] MEDS: DAKIN'S SOLUTION 0.125% 1/4 STRENGTH 473 ML TOPICAL (08:55)
[2025-01-30] MEDS: ZOLOFT 25 MG TUBE (08:56)
[2025-01-30] MEDS: PREVACID 30 MG TUBE ×2 (08:56→20:36)
[2025-01-30] MEDS: ZYLOPRIM 100 MG TUBE (08:56)
--- NOTE | 2025-01-30 10:29 | W.PN.NEPH.PH ---
Today's Communication / Plan
-
HD tomorrow
Assessment/Plan
-
IMP:
Anemia
ESRD on HD-MWF [facility]
left UE AVF
right chest wall catheter
Dysphagia on PEG
Hx of CVA with residual aphasia and paraplegia
Urine retention
Diabetes mellitus type 2
Plan:
HD tomorrow
Abx per primary team
NIVIA on dialysis
Transfuse as needed
-
-
Date of Service: January 30, 2025
CC / HPI / ROS
-
Chief Complaint:
ESRD
History of Present Illness:
tolerated HD yesterday
BP low stable
Hgb low stable
Remains on IV antibiotics for ulcers
Review of Systems:
noncommunicative
Labs
-
Labs:
WBC 14.7 10^3/uL (4.8-10.8) H 01/30/25 04:10
RBC 3.06 10^6/uL (4.70-6.10) L 01/30/25 04:10
Hgb 8.4 g/dL (13.0-18.0) L D 01/30/25 04:10
Hct 27.5 % (39.0-52.0) L 01/30/25 04:10
Plt Count 348 10^3/uL (130-400) 01/30/25 04:10
Sodium 136 mmol/L (135-145) 01/30/25 04:10
Potassium 3.3 mmol/L (3.5-5.1) L 01/30/25 04:10
Chloride 102 mmol/L (98-107) 01/30/25 04:10
Carbon Dioxide 30 mmol/L (22-30) 01/30/25 04:10
BUN 37 mg/dl (9-20) H 01/30/25 04:10
Creatinine 2.1 mg/dL (0.7-1.3) H 01/30/25 04:10
eGFR 35.59 01/30/25 04:10
Glucose 191 mg/dl (70-99) H 01/30/25 04:10
Calcium 8.8 mg/dl (8.4-10.2) 01/30/25 04:10
Mqq-P-Vlardhdfagc Pept 84997 pg/ml 01/24/25 16:29
Albumin 2.7 g/dl (3.5-5.0) L 01/24/25 16:29
Physical Exam
-
Vital Signs:
Vital Signs
Temp Pulse Resp BP Pulse Ox
98.9 F 81 24 114/57 100
01/30/25 07:29 01/30/25 10:00 01/30/25 10:00 01/30/25 10:00 01/30/25 10:16
Cardiovascular:: Regular rate and rhythm
Respiratory:: Bilateral: Coarse
Lung Excursion:: Normal
Abdomen:: Nontender and Soft
Bowel Sounds:: Normal
Extremity Edema:: None: Bilateral:
--- NOTE | 2025-01-30 13:13 | W.PN.UPDATE ---
Update Note
Progress Note Update
Principal diagnosis : Acute Hypoxic Respiratory Failure secondary to Aspiration Pneumonia, stage IV Sacral Wounds
Hospital Course :
Mr. Jordon Lopez is a 59 year old man with past medical history significant for CVA with residual paraplegia, status post trach and PEG, non-verbal, history of intra-abdominal abscess status post exploratory laparotomy without bowel resection, atrial
fibrillation on anticoagulation, pgg-qfdslep-tdabdbmte diabetes, COPD, hypertension, ESRD on hemodialysis via right IJ PermCath brought to the emergency department from [facility] dialysis unit for severe hypoxic respiratory failure. Patient
arrived from the dialysis unit for hypoxia and was on 15 L nonrebreather and diaphoretic. He was also reported to have a fever.
Triage vitals significant for pulse 102. Labs with WBC 24.1. He was admitted to medicine with ID consulting for pneumonia and Renal consulting for HD needs. He was started on IV Vancomycin, Zosyn. IV Vancomycin discontinued with negative
cultures. He completed his IV Zosyn course in the hospital.
His oxygen needs quickly came down. He received HD with fluid removal.
Patient's stage IV sacral wounds were evaluated by wound RN and general surgery in the hospital. Per GS, no need for surgical debridement.
Hospital course complicated by acute on chronic anemia and he received 1 unit PRBC with HD on 01/29.
--- NOTE | 2025-01-30 16:43 | PTCARENOTE ---
Pt with eyes open at times during shift. Pt not nodding his head when asked questions throughout shift. Mouth care performed, pt biting on appliance.
Pt with PEG tube and TF, see flowsheet. Q2T & FMS maintained. Wound dressings maintained. L foot IV still intact. Assessment, care and VS as charted.
[2025-01-31] VITALS (35 sets, daily range): BP systolic 83–164; BP diastolic 38–82; BMI 28.2
[2025-01-31 07:55] LABS: Hematocrit 27.7 % (39.0-52.0); Hemoglobin 8.3 g/dL (13.0-18.0); Mean Corp Hgb Conc. 30.0 g/dL (33.0-37.0); Mean Corpuscular Volume 89.1 fL (80.0-94.0); Platelet Count 405 10^3/uL (130-400); Red Cell Dist. Width 18.6 % (11.5-14.5)
--- NOTE | 2025-01-31 07:58 | PTCARENOTE ---
Received report from night RN. Patient completed bowel prep without any difficulty. It was reported that patient's stool gold in color and clear. H&H this AM 8.3/27.7. Patient NPO overnight. Denies any pain or discomfort. VS stable.
[2025-01-31] MEDS: RETACRIT 10000 UNITS IV (08:35)
[2025-01-31] MEDS: FLEXBUMIN 25% FOR HEMODIALYSIS 12.5 GRAMS IV ×2 (08:43→09:50)
[2025-01-31] MEDS: MANNITOL 25% 12.5 GRAMS IV ×2 (08:43→09:58)
[2025-01-31] MEDS: MYCOSTATIN ORAL SUSPENSION 10 ML PO ×3 (09:00→19:40)
[2025-01-31] MEDS: CARAFATE SUSPENSION 1 GM TUBE ×2 (09:00→19:40)
[2025-01-31] MEDS: HEPARIN 5000 UNITS SC ×2 (09:01→19:40)
[2025-01-31] MEDS: ZYLOPRIM 100 MG TUBE (09:02)
[2025-01-31] MEDS: ZOLOFT 25 MG TUBE (09:02)
[2025-01-31] MEDS: DAKIN'S SOLUTION 0.125% 1/4 STRENGTH 473 ML TOPICAL (09:02)
[2025-01-31] MEDS: PREVACID 30 MG TUBE ×2 (09:02→19:40)
[2025-01-31 09:06] LABS: Albumin 3.1 g/dl (3.5-5.0); Blood Urea Nitrogen 49 mg/dl (9-20); Calcium 9.0 mg/dl (8.4-10.2); Carbon Dioxide 30 mmol/L (22-30); Chloride 101 mmol/L (98-107); Estimated Creatinine Clearance 25 ml/min; Glucose 116 mg/dl (70-99); Potassium 3.5 mmol/L (3.5-5.1); Sodium 136 mmol/L (135-145); eGFR 24.16
--- NOTE | 2025-01-31 10:01 | W.PN.ID1 ---
Date of Service
Date of Service: January 31, 2025
Today's Communication
Check blood cultures. Follow white count. Hold on reinitiation of antibiotics for today.
Assessment / Plan
Leukocytosis
Hypoxemic respiratory failure; improved
Suspected PNA (aspiration) vs. flash pulmonary edema
Anemia
CVA and paraplegia
Dysphagia
Atrial fibrillation
HTN
ESRD�HD
Erosive gastritis; Hx GIB
Hx C. difficile (08/2024)
Chronic sacral decubitus wounds
Recommendations:
Zosyn discontinued last evening, with last dose at approximately 8 PM.
Leukocytosis noted to be markedly elevated today for unclear reasons. ?reactive? Patient remains afebrile. C. difficile negative (01/30/2025)
Blood cultures (01/24) with coag neg staph in 1 of 4 bottles = contaminant
Monitor white count and temperature curve.
Repeat blood cultures on hemodialysis today.
Would prefer to follow white count before additional antibiotics administered. Leukocytosis earlier today not likely secondary to discontinuation of prior Zosyn.
Continue with Dakin's to the sacral/buttock decubiti to decrease overall topical bioburden.
Continue with frequent offloading of the sacral area. Given size and depth of wounds, along with other comorbidities, wound healing will be difficult, if not impossible.
Continue with supportive measures.
Given current clinical picture, overall prognosis poor to nil for any return to meaningful quality of life.
����������������������������������������������������������
Chief Complaint
-: Leukocytosis and Bacteremia
Subjective / Review of Systems
Patient seen and examined. No significant changes overnight.
Review of Systems: No Fever
Vital Signs / Physical Exam
Vital Signs
Vital Signs
Temp Pulse Resp BP Pulse Ox
98.6 F 75 19 163/69 99
01/31/25 08:00 01/31/25 07:48 01/31/25 07:48 01/31/25 07:48 01/31/25 07:54
Physical Exam
Constitutional: No Acute Distress, Comfortable and Chronically Ill
Cardiovascular: Regular Rate and S1/S2; Negative S3/S4
Pulmonary: Clear (anteriorly) and Non Labored
Gastrointestinal: Soft, Non Tender, Non Distended, Normal Bowel Sounds and Other (PEG in place. FMS in place with liquid stool)
Extremities: Negative Edema or Cyanosis
Wound: Other (Sacral/buttock wounds dressed. Wound care Nurse photos reviewed. Slough noted. )
Neurological: Other (Eyes open and tracking. Patient nonverbal.)
Lines: HD Cath (Right ACW. Exit site without erythema)
Objective Data
Lab Data
Lab Results
01/31/25 07:28
01/31/25 07:28
Estimated Creat Clear 25 ml/min 01/31/25 07:28
Lactic Acid 1.3 mmol/L (0.7-2.0) 01/24/25 16:29
Total Bilirubin 0.7 mg/dl (0.2-1.3) 01/24/25 16:29
AST 30 U/L (17-59) 01/24/25 16:29
ALT 23 U/L (0-50) 01/24/25 16:29
Alkaline Phosphatase 204 U/L (38-126) H 01/24/25 16:29
Most recent labs reviewed.
Micro Results:
01/26/25 08:53 Blood Culture - Final
Blood/Venous No Growth - Final Report
01/24/25 16:30 Blood Culture - Final
Blood/Venous Coagulase neg. staphylococcus
Additional testing on request
Gram Stain - Final
01/30/25 09:17 C. difficile GDH Antigen & Toxins - Final
Feces/Stool Negative for toxigenic C.difficile
01/24/25 16:29 Blood Culture - Final
Blood/Venous No Growth - Final Report
01/25/25 00:53 Urine Culture - Final
Urine
01/24/25 19:45 Influenza Types A & B (ELIZ) - Final
Nasal Swab Negative for Influenza A & B, NAAT
Negative results must be combined with clinical observations
and patient history.
Nucleic Acid Amplification test (NAAT)performed on the
[employer] platform.
Imaging:
01/24/2025 CXR (portable): mild interstitial cardiogenic pulmonary edema. Moderate size left lower lobe airspace consolidation. Small left pleural effusion. Please see full dictation for additional detail.
--- NOTE | 2025-01-31 10:50 | W.PN.NEPH.HD ---
Assessment
-
pt seen during HD
vitals stable post midodrine
UF limited by Soft BPs
High dose NIVIA for anemia
CVC functions fine
Progress Note - Hemodialysis
-
Date of Service: January 31, 2025
Duration: 30 minutes and 3 hours
Potassium Bath: 3
Calcium Bath: 2.5
Opti-Dialyzer: 160
Ultrafiltration: Other (1.5-2kg)
Blood Flow: 400
Dialysate Flow: 600
Heparin: no
EPO: [id number]
[2025-01-31] MEDS: HEPARIN 4300 UNITS INTRACATH (10:53)
--- NOTE | 2025-01-31 12:08 | W.PN.HOSP.TC ---
Addendum entered and electronically signed by Mino Fields MD 02/02/25 13:43:
late addendum-pt was examined on 01/31/25
General: Other (appears chronically ill, opens eyes to voice )
Respiratory: Clear to Auscultation (anterior ) and Other
Cardiac: Regular Rhythm and S1/S2
GI: Soft, Nontender, Nondistended and Peg Tube
Musculoskeletal: No Edema
Skin: Warm
Neuro: Awake
Psych: Calm
Original Note:
Today's Communication/Plan
-
trend wbc
repeat Bcx pending
HD today
monitor BP
Assessment / Plan
Assessment / Plan
Acute Hypoxic respiratory failure
Left lower lobe pneumonia with leukocytosis and fever reported at dialysis
Leukocytosis unclear if reactive versus infection
� Covid and flu negative. Cdiff checked on 01/30 negative.
- 1 set of blood cultures with coagulase-negative Staphylococcus-likely contaminant
- Repeat blood cultures ordered 01/31 per infectious disease
� Status post Zosyn 7 days.
� Respiratory suctioning as tolerated
� Nebs as needed
� ID consult appreciated. Bump in wbc noted. trend for now.
Acute on chronic anemia
Anemia of Inflammation
-s/p 1 unit PRBC with HD on 01/29 - Hg > 8 this AM
-Epo/IV iron per nephro
Abnormal urinalysis--cultures are negative
Hypotension
-Responded to Midodrine
-UF limited due to soft BP at times
Paroxysmal atrial fibrillation -rate controlled
- Currently in sinus and not requiring any rate control, off anticoagulation as OP
- Monitor on telemetry
Stage IV sacral decubitus ulcer, left ischium pressure injury, right heel and medial ankle with DTI's, left heel with discoloration probably stage I, PEG tube site with tiny pink open area-or present on admission
-continue local wound care.
-Wounds were evaluated by surgeon who does not feel needs debridement.
-fecal management system in place
End-stage renal disease
-appreciate renal consult
-HD with renal
Hypokalemia- corrected
Hyponatremia-improved
Chronic HFpEF
History of GI bleed- Continue PPI twice daily via PEG
Iwzzxsqn-Qryy-Cpejf ordered. Hemoglobin A1c wont be accurate with anemia
Anxiety-on lorazepam 0.5 mg twice daily as needed, sertraline
Chronic pain-opiate dependence-on oxycodone 10 mg twice daily as needed
GERD-continue PPI and Carafate
History of gout-continue allopurinol
Right hemiplegia following a stroke. Look like has cognitive dysfunction as well.
History of C. difficile
Bedbound status
Hypoalbuminemia
Nutrition-via PEG tube
DVT prophylaxis with heparin subcutaneous
CODE STATUS�full code
Poor prognosis with all the above comorbidities and stage 4 ulcer, comfort care discussions had with on 01/26, would like to continue full code
Anticipated Discharge: 24 - 48 hours
Subjective/Interval History
-
Date of Service: January 31, 2025
Remains afebrile.
Seen on hemodialysis
Objective Data
-
Labs:
Laboratory Results
01/31/25
07:28
WBC 20.8 H
Hgb 8.3 L
Hct 27.7 L
Plt Count 405 H
Sodium 136
Potassium 3.5
Chloride 101
Carbon Dioxide 30
BUN 49 H
Creatinine 2.9 H
Glucose 116 H
Calcium 9.0
Vital Signs:
Vital Signs
Temp Pulse Resp BP Pulse Ox
98.6 F 75 19 163/69 99
01/31/25 10:59 01/31/25 07:48 01/31/25 07:48 01/31/25 07:48 01/31/25 07:54
I&O
01/30/25 01/31/25 02/01/25
06:59 06:59 06:59
Intake Total 1774 / 156
Output Total 0 / 0
Balance 1774 / 1564
--- NOTE | 2025-01-31 13:18 | CM ---
F/U: Patient's white count is high so still being monitored according to Hospitalist. PLAN: Return t [facility], ONLY option and GF is aware.
--- NOTE | 2025-01-31 14:20 | PTCARENOTE ---
Patient received HD this AM. 1.5 kilo removed. Patient complete in care. TF nepro @50mls/hr, no water flush. Minimal residual. Patient given an update. VS stable. Will monitor.
--- NOTE | 2025-01-31 14:23 | PN.CDI ---
CDI
- -
CDI:
Physician Documentation Request
Admit Date: 01/24/25 21:32
Dear ,
[facility] is using an adapted version of the 2016 Third International Consensus Definitions for Sepsis and Septic Shock (Sepsis-3) where sepsis is defined as life threatening organ dysfunction caused by a deregulated host response to infection.
Please reference the official [facility] Sepsis Recognition Tool for further information, which can be found on the Intranet under Infection Prevention.
Clinical Indicators Include:
ED note state patient presented to ED from dialysis for respiratory distress and fever.
Patient found to have acute hypoxic respiratory failure and left lower lobe pneumonia
Temp:
HR: at presentation 102-104
Labs: 124
WBC: 24.1
Based on your medical judgment, can you further clarify the diagnosis being monitored/treated this admission?
� Sepsis due to pneumonia with organ dysfunction of acute hypoxic respiratory failure
� pneumonia only
� Other
� Clinically unable to determine
Use of terms such as suspected, likely, concern for, or probable (associated with a specific diagnosis that is being evaluated, monitored, or treated as if it exists) are acceptable and can be coded in the inpatient setting when documented at the
time of discharge.
Please use your independent medical judgement in providing your response.
Thank you,
Ashley Mishra RN, BSN
CDI Specialist
tiger text
[2025-01-31 18:05] LABS: Glucose - Point of Care 158 mg/dl (70-99)
[2025-02-01] VITALS (24 sets, daily range): BP systolic 99–142; BP diastolic 49–79
--- NOTE | 2025-02-01 05:31 | PTCARENOTE ---
Pt continues with TF through PEG without complication. VS remained stable. Nonverbal. Complete care. Bed alarm in place for pt safety. Care ongoing.
[2025-02-01 08:43] LABS: Hematocrit 28.6 % (39.0-52.0); Hemoglobin 9.0 g/dL (13.0-18.0); Mean Corp Hgb Conc. 31.5 g/dL (33.0-37.0); Mean Corpuscular Volume 89.9 fL (80.0-94.0); Nucleated Red Blood Cells % 0.3 % (-); Platelet Count 434 10^3/uL (130-400); Red Cell Dist. Width 19.9 % (11.5-14.5)
--- NOTE | 2025-02-01 09:46 | W.PN.ID1 ---
Date of Service
Date of Service: February 01, 2025
Today's Communication
Observe off antibiotics
Assessment / Plan
Leukocytosis
Hypoxemic respiratory failure; improved
Suspected PNA (aspiration) vs. flash pulmonary edema
Anemia
CVA and paraplegia
Dysphagia
Atrial fibrillation
HTN
ESRD�HD
Erosive gastritis; Hx GIB
Hx C. difficile (08/2024)
Chronic sacral decubitus wounds
Recommendations:
Zosyn discontinued 01/30.
Leukocytosis improved today. ?reactive? Patient remains afebrile. C. difficile negative (01/30/2025)
Blood cultures (01/24) with coag neg staph in 1 of 4 bottles = contaminant
Monitor white count and temperature curve.
Repeat blood cultures pending.
--> Continue to observe off antibiotics.
Continue with Dakin's to the sacral/buttock decubiti to decrease overall topical bioburden.
Continue with frequent offloading of the sacral area. Given size and depth of wounds, along with other comorbidities, wound healing unlikely.
Continue with supportive measures.
Given current clinical picture, overall prognosis poor-to-nil for any return to meaningful quality of life.
����������������������������������������������������������
Chief Complaint
-: Leukocytosis and Bacteremia
Subjective / Review of Systems
Patient seen and examined. No reported changes overnight.
Review of Systems: No Fever
Vital Signs / Physical Exam
Vital Signs
Vital Signs
Temp Pulse Resp BP Pulse Ox
99.0 F 95 34 118/65 93
02/01/25 08:01 02/01/25 06:00 02/01/25 06:00 02/01/25 06:00 02/01/25 06:00
Physical Exam
Constitutional: No Acute Distress, Comfortable, Chronically Ill and Non-toxic
Eyes: Sclera Anicteric
Cardiovascular: S1/S2; Negative S3/S4
Pulmonary: Non Labored
Gastrointestinal: Soft, Non Distended, Normal Bowel Sounds and Other (PEG in place. FMS in place with liquid stool.)
Wound: Other (Sacral/buttock wounds dressed.)
Neurological: Other (Eyes open. Occasional tracking. Nonverbal.)
Psychological: Calm
Objective Data
Lab Data
Lab Results
02/01/25 08:20
01/31/25 07:28
Estimated Creat Clear 25 ml/min 01/31/25 07:28
Lactic Acid 1.3 mmol/L (0.7-2.0) 01/24/25 16:29
Total Bilirubin 0.7 mg/dl (0.2-1.3) 01/24/25 16:29
AST 30 U/L (17-59) 01/24/25 16:29
ALT 23 U/L (0-50) 01/24/25 16:29
Alkaline Phosphatase 204 U/L (38-126) H 01/24/25 16:29
Most recent labs reviewed.
Micro Results:
02/01/25 08:20 Blood Culture - Pending
Blood/Venous
01/31/25 12:57 Blood Culture - Pending
Blood/Venous
01/26/25 08:53 Blood Culture - Final
Blood/Venous No Growth - Final Report
01/24/25 16:30 Blood Culture - Final
Blood/Venous Coagulase neg. staphylococcus
Additional testing on request
Gram Stain - Final
01/30/25 09:17 C. difficile GDH Antigen & Toxins - Final
Feces/Stool Negative for toxigenic C.difficile
01/24/25 16:29 Blood Culture - Final
Blood/Venous No Growth - Final Report
01/25/25 00:53 Urine Culture - Final
Urine
01/24/25 19:45 Influenza Types A & B (ELIZ) - Final
Nasal Swab Negative for Influenza A & B, NAAT
Negative results must be combined with clinical observations
and patient history.
Nucleic Acid Amplification test (NAAT)performed on the
[employer] platform.
Imaging:
01/24/2025 CXR (portable): mild interstitial cardiogenic pulmonary edema. Moderate size left lower lobe airspace consolidation. Small left pleural effusion. Please see full dictation for additional detail.
[2025-02-01] MEDS: CARAFATE SUSPENSION 1 GM TUBE ×2 (10:07→22:49)
[2025-02-01] MEDS: MYCOSTATIN ORAL SUSPENSION 10 ML PO ×3 (10:07→22:49)
[2025-02-01] MEDS: HEPARIN 5000 UNITS SC ×2 (10:07→22:49)
[2025-02-01] MEDS: PREVACID 30 MG TUBE ×2 (10:07→22:50)
[2025-02-01] MEDS: ZYLOPRIM 100 MG TUBE (10:08)
[2025-02-01] MEDS: ZOLOFT 25 MG TUBE (10:08)
[2025-02-01] MEDS: DAKIN'S SOLUTION 0.125% 1/4 STRENGTH 473 ML TOPICAL (10:09)
[2025-02-01] MEDS: ROXICODONE 10 MG TUBE (10:59)
--- NOTE | 2025-02-01 11:26 | WOUNDNOTE ---
L ISCHIUM AND UPPER BUTTOCK
--- NOTE | 2025-02-01 11:28 | WOUNDNOTE ---
R MEDIAL HEEL AND ANKLE
--- NOTE | 2025-02-01 11:28 | WOUNDNOTE ---
R MEDIAL ANKLE AND HEEL
--- NOTE | 2025-02-01 11:30 | WOUNDNOTE ---
WON RN NOTE: Followed up today with assistance of nurse Rivera and Dr. Mazariegos at bedside. Sacral wound appears road cleaner with less odor. L upper buttock shallow skin breakdown appears the same. L ischium appears worse, more lambert slough at edges and +
odor. Yeimyin's WTD dressings changed, recommend continue with same dressing. Internal fecal digital strategist senior manager in place, leakage of stool around tube. Skin care given, pads changed and repositioned to R semi side lying position. R ankle and heel DTI appear
smaller, foams in use. L heel remains intact. Offloading heel boots in use and remains on air mattress with turning schedule. Nutrition via FT, assessed skin around site, has healed. Will sign off unless needed.
--- NOTE | 2025-02-01 11:37 | W.PN.NEPH.PH ---
Today's Communication / Plan
-
HD tomorrow
Assessment/Plan
-
IMP:
Anemia
ESRD on HD-MWF [facility]
left UE AVF
right chest wall catheter
Dysphagia on PEG
Hx of CVA with residual aphasia and paraplegia
Urine retention
Diabetes mellitus type 2
Plan:
HD tomorrow
NIVIA on dialysis
Transfuse as needed
observe off abx per ID
-
-
Date of Service: February 01, 2025
CC / HPI / ROS
-
Chief Complaint:
ESRD
History of Present Illness:
tolerated HD yesterday
BP low stable
Hgb better at 9
Review of Systems:
noncommunicative
diarrhea, rectal tube
no fever
Labs
-
Labs:
WBC 17.4 10^3/uL (4.8-10.8) H 02/01/25 08:20
RBC 3.18 10^6/uL (4.70-6.10) L 02/01/25 08:20
Hgb 9.0 g/dL (13.0-18.0) L 02/01/25 08:20
Hct 28.6 % (39.0-52.0) L 02/01/25 08:20
Plt Count 434 10^3/uL (130-400) H 02/01/25 08:20
Sodium 136 mmol/L (135-145) 01/31/25 07:28
Potassium 3.5 mmol/L (3.5-5.1) 01/31/25 07:28
Chloride 101 mmol/L (98-107) 01/31/25 07:28
Carbon Dioxide 30 mmol/L (22-30) 01/31/25 07:28
BUN 49 mg/dl (9-20) H 01/31/25 07:28
Creatinine 2.9 mg/dL (0.7-1.3) H 01/31/25 07:28
eGFR 24.16 01/31/25 07:28
Glucose 116 mg/dl (70-99) H 01/31/25 07:28
Calcium 9.0 mg/dl (8.4-10.2) 01/31/25 07:28
Phosphorus 2.7 mg/dl (2.5-4.5) 01/31/25 07:28
Ind-Q-Jovvoymuybd Pept 92526 pg/ml 01/24/25 16:29
Albumin 3.1 g/dl (3.5-5.0) L 01/31/25 07:28
Physical Exam
-
Vital Signs:
Vital Signs
Temp Pulse Resp BP Pulse Ox
99.0 F 93 34 107/62 94
02/01/25 08:01 02/01/25 10:00 02/01/25 10:00 02/01/25 10:00 02/01/25 10:00
Cardiovascular:: Regular rate and rhythm
Respiratory:: Bilateral: Coarse
Lung Excursion:: Normal
Abdomen:: Nontender and Soft
Bowel Sounds:: Normal
Extremity Edema:: None: Bilateral:
[place] Catheter: No
--- NOTE | 2025-02-01 12:34 | W.PN.HOSP.TC ---
Addendum entered and electronically signed by Mino Fields MD 02/02/25 13:40:
General: Other (appears chronically ill, opens eyes to voice )
Respiratory: Clear to Auscultation (anterior ) and Other
Cardiac: Regular Rhythm and S1/S2
GI: Soft, Nontender, Nondistended and Peg Tube
Musculoskeletal: No Edema
Skin: Warm
Neuro: Awake
Psych: Calm
Original Note:
Today's Communication/Plan
-
Observing off antibiotic
Follow-up on the blood culture
Continue with tube feeding
Wound care
Assessment / Plan
Assessment / Plan
Acute Hypoxic respiratory failure
Sepsis due to pneumonia with organ dysfunction of acute hypoxic respiratory failure
Leukocytosis unclear if reactive versus infection
� Covid and flu negative. Cdiff checked on 01/30 negative.
- 1 set of blood cultures with coagulase-negative Staphylococcus-likely contaminant
- Repeat blood cultures ordered 01/31 per infectious disease-blood cultures remains in lab.
� Status post Zosyn 7 days.
� Respiratory suctioning as tolerated
� Nebs as needed
� ID consult appreciated. Mild downtrend in WBC noted. If WBC plateau/downtrends and blood cultures remain negative may need to consider discharge back to rehab.
Acute on chronic anemia
Anemia of Inflammation
-s/p 1 unit PRBC with HD on 01/29 - Hg > 8
-Epo/IV iron per nephro
Abnormal urinalysis--cultures are negative
Hypotension
-Responded to Midodrine
-UF limited due to soft BP at times
Paroxysmal atrial fibrillation -rate controlled
- Currently in sinus and not requiring any rate control, off anticoagulation as OP
- Monitor on telemetry
Stage IV sacral decubitus ulcer, left ischium pressure injury, right heel and medial ankle with DTI's, left heel with discoloration probably stage I, PEG tube site with tiny pink open area-or present on admission
-continue local wound care.
-Wounds were evaluated by surgeon who does not feel needs debridement.
-fecal management system in place
End-stage renal disease
-appreciate renal consult
-HD with renal
Hypokalemia- corrected
Hyponatremia-improved
Chronic HFpEF
History of GI bleed- Continue PPI twice daily via PEG
Tpcfmnvx-Ilja-Ogepm ordered. Hemoglobin A1c wont be accurate with anemia
Anxiety-on lorazepam 0.5 mg twice daily as needed, sertraline
Chronic pain-opiate dependence-on oxycodone 10 mg twice daily as needed
GERD-continue PPI and Carafate
History of gout-continue allopurinol
Right hemiplegia following a stroke. Look like has cognitive dysfunction as well.
History of C. difficile
Bedbound status
Hypoalbuminemia
Nutrition-via PEG tube
DVT prophylaxis with heparin subcutaneous
CODE STATUS�full code
Poor prognosis with all the above comorbidities and stage 4 ulcer, comfort care discussions had with on 01/26, would like to continue full code
Anticipated Discharge: 24 - 48 hours
Subjective/Interval History
-
Date of Service: February 01, 2025
remains afebrile
tolerating TF
Objective Data
-
Labs:
Laboratory Results
02/01/25
08:20
WBC 17.4 H
Hgb 9.0 L
Hct 28.6 L
Plt Count 434 H
Vital Signs:
Vital Signs
Temp Pulse Resp BP Pulse Ox
99.0 F 93 34 107/62 94
02/01/25 08:01 02/01/25 10:00 02/01/25 10:00 02/01/25 10:00 02/01/25 10:00
I&O
01/31/25 02/01/25 02/02/25
06:59 06:59 06:59
Intake Total 1565 / 1565 680 / 680
Output Total 0 / 0
Balance 1565 / 1565 680 / 680
Data Reviewed
-
Total Time Spent with Patient (in minutes): 55
--- NOTE | 2025-02-01 16:35 | PTCARENOTE ---
Pt's assessment as documented. Nonverbal. NSR on tele monitor. Sating low to mid 90's on RA. Pt tolerating TF. FMS draining liquid brown stool. Wound care completed by WOC RN. Pt's updated via phone. Q2T and safe environment maintained.
[2025-02-02] VITALS (52 sets, daily range): BP systolic 81–133; BP diastolic 53–71; BMI 27.0
--- NOTE | 2025-02-02 03:24 | PTCARENOTE ---
Assumed care of patient from dayshift RN. Pt nonverbal, drowsy but easily arousable to verbal stimuli. NSR on tele monitor, hr 80. SpO2 98% on RA. FMS in place draining brown liquid stool. Nepro TF infusing at 30 mL/hr via PEG. VS and assessment as
documented. Q2T ongoing. Patient resting in bed with call bourgeois in reach.
[2025-02-02] MEDS: RETACRIT 10000 UNITS IV (08:25)
[2025-02-02 08:32] LABS: Hematocrit 27.5 % (39.0-52.0); Hemoglobin 8.3 g/dL (13.0-18.0); Mean Corp Hgb Conc. 30.2 g/dL (33.0-37.0); Mean Corpuscular Volume 96.8 fL (80.0-94.0); Nucleated Red Blood Cells % 0 % (-); Platelet Count 426 10^3/uL (130-400); Red Cell Dist. Width 20.9 % (11.5-14.5)
[2025-02-02] MEDS: HEPARIN 5000 UNITS SC (08:50)
[2025-02-02] MEDS: MYCOSTATIN ORAL SUSPENSION 10 ML PO (08:50)
[2025-02-02] MEDS: ZYLOPRIM 100 MG TUBE (08:51)
[2025-02-02] MEDS: PREVACID 30 MG TUBE (08:51)
[2025-02-02] MEDS: DAKIN'S SOLUTION 0.125% 1/4 STRENGTH 473 ML TOPICAL (09:04)
--- NOTE | 2025-02-02 09:28 | W.PN.NEPH.HD ---
Assessment
-
Pt seen on HD. no complaints. VSS, access ok
Progress Note - Hemodialysis
-
Date of Service: February 02, 2025
Duration: 30 minutes and 3 hours
Potassium Bath: 3
Calcium Bath: 2.5
Opti-Dialyzer: 160
Ultrafiltration: Other (2kg)
Blood Flow: 400
Dialysate Flow: 600
Heparin: 0
EPO: 44698 units
[2025-02-02 09:34] LABS: Carbon Dioxide 30 mmol/L (22-30); Chloride 103 mmol/L (98-107); Potassium 3.7 mmol/L (3.5-5.1); Sodium 139 mmol/L (135-145)
--- NOTE | 2025-02-02 11:03 | W.PN.ID1 ---
Date of Service
Date of Service: February 02, 2025
Today's Communication
Continue supportive measures. Monitor off antibiotics.
Assessment / Plan
Leukocytosis
Hypoxemic respiratory failure; improved
Suspected PNA (aspiration) vs. flash pulmonary edema
Anemia
CVA and paraplegia
Dysphagia
Atrial fibrillation
HTN
ESRD�HD
Erosive gastritis; Hx GIB
Hx C. difficile (08/2024)
Chronic sacral decubitus wounds
Recommendations:
Zosyn discontinued 01/30.
Leukocytosis improved today. ?reactive? Patient remains afebrile. C. difficile negative (01/30/2025)
Blood cultures (01/24) with coag neg staph in 1 of 4 bottles = contaminant
Monitor white count and temperature curve.
Repeat blood cultures pending.
--> Continue to observe off antibiotics.
Continue with Dakin's to the sacral/buttock decubiti to decrease overall topical bioburden.
Continue with frequent offloading of the sacral area. Given size and depth of wounds, along with other comorbidities, wound healing unlikely. Sacral/buttock wounds evaluated yesterday with Wound care Nurse, and overall appear somewhat worse, with
increased darkening of the tissue.
Continue with supportive measures.
Given current clinical picture, the overall prognosis essentially nonexistent for any return to meaningful quality of life.
Given irreversible comorbidities, palliative care/hospice would be most appropriate in this setting.
����������������������������������������������������������
Chief Complaint
-: Leukocytosis and Bacteremia
Subjective / Review of Systems
Patient seen and examined. Nursing reports no events overnight.
Review of Systems: No Fever
Vital Signs / Physical Exam
Vital Signs
Vital Signs
Temp Pulse Resp BP Pulse Ox
99.6 F 98 28 113/71 96
02/02/25 04:06 02/02/25 10:45 02/02/25 10:45 02/02/25 10:45 02/02/25 10:45
Physical Exam
Constitutional: No Acute Distress, Comfortable, Chronically Ill and Non-toxic
Eyes: Sclera Anicteric
Cardiovascular: S1/S2; Negative S3/S4
Pulmonary: Non Labored
Gastrointestinal: Soft, Non Distended, Normal Bowel Sounds and Other (PEG in place. FMS in place with liquid stool.)
Wound: Other (Sacral/buttock wounds dressed.)
Neurological: Other (Eyes open. Occasional tracking. Nonverbal.)
Psychological: Calm
Objective Data
Lab Data
Lab Results
02/02/25 08:07
02/02/25 08:18
Estimated Creat Clear 25 ml/min 01/31/25 07:28
Lactic Acid 1.3 mmol/L (0.7-2.0) 01/24/25 16:29
Total Bilirubin 0.7 mg/dl (0.2-1.3) 01/24/25 16:29
AST 30 U/L (17-59) 01/24/25 16:29
ALT 23 U/L (0-50) 01/24/25 16:29
Alkaline Phosphatase 204 U/L (38-126) H 01/24/25 16:29
Most recent labs reviewed.
Micro Results:
02/01/25 08:20 Blood Culture - Preliminary
Blood/Venous No Growth in 24 hours- Final report to follow
01/31/25 12:57 Blood Culture - Preliminary
Blood/Venous No Growth in 24 hours- Final report to follow
01/26/25 08:53 Blood Culture - Final
Blood/Venous No Growth - Final Report
01/24/25 16:30 Blood Culture - Final
Blood/Venous Coagulase neg. staphylococcus
Additional testing on request
Gram Stain - Final
01/30/25 09:17 C. difficile GDH Antigen & Toxins - Final
Feces/Stool Negative for toxigenic C.difficile
01/24/25 16:29 Blood Culture - Final
Blood/Venous No Growth - Final Report
01/25/25 00:53 Urine Culture - Final
Urine
01/24/25 19:45 Influenza Types A & B (ELIZ) - Final
Nasal Swab Negative for Influenza A & B, NAAT
Negative results must be combined with clinical observations
and patient history.
Nucleic Acid Amplification test (NAAT)performed on the
[employer] platform.
Imaging:
01/24/2025 CXR (portable): mild interstitial cardiogenic pulmonary edema. Moderate size left lower lobe airspace consolidation. Small left pleural effusion. Please see full dictation for additional detail.
[2025-02-02] MEDS: CARAFATE SUSPENSION 1 GM TUBE (12:12)
[2025-02-02] MEDS: ZOLOFT 25 MG TUBE (12:12)
--- NOTE | 2025-02-02 12:58 | W.PN.HOSP.TC ---
Addendum entered and electronically signed by Mino Fields MD 02/02/25 16:15:
updated-ASH PAZ over the phone in details. She agreed for dc back to SNF.
Original Note:
Today's Communication/Plan
-
cultures remains negative
wbc downtrended
remains afebrile
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
Assessment / Plan
Assessment / Plan
Acute Hypoxic respiratory failure
Sepsis due to pneumonia with organ dysfunction of acute hypoxic respiratory failure
Leukocytosis unclear if reactive versus infection
� Covid and flu negative. Cdiff checked on 01/30 negative.
- 1 set of blood cultures with coagulase-negative Staphylococcus-likely contaminant
- Repeat blood cultures ordered 01/31 per infectious disease-blood cultures prelim neg x 24h.
� Status post Zosyn 7 days.
� Respiratory suctioning as tolerated
� Nebs as needed
� ID consult appreciated. Downtrend in WBC noted to 14k. Remains afebrile.
Acute on chronic anemia
Anemia of Inflammation
-s/p 1 unit PRBC with HD on 01/29 - Hg > 8
-Epo/IV iron per nephro
Abnormal urinalysis--cultures are negative
Hypotension
-Responded to Midodrine
-UF limited due to soft BP at times
Paroxysmal atrial fibrillation -rate controlled
- Currently in sinus and not requiring any rate control, off anticoagulation as OP
- Monitor on telemetry
Stage IV sacral decubitus ulcer, left ischium pressure injury, right heel and medial ankle with DTI's, left heel with discoloration probably stage I, PEG tube site with tiny pink open area-or present on admission
-continue local wound care.
-Wounds were evaluated by surgeon who does not feel needs debridement.
-fecal management system in place
End-stage renal disease
-appreciate renal consult
-HD with renal
Hypokalemia- corrected
Hyponatremia-improved
Chronic HFpEF
History of GI bleed- Continue PPI twice daily via PEG
Wyoxqbcz-Iyvo-Ogtzb ordered. Hemoglobin A1c wont be accurate with anemia
Anxiety-on lorazepam 0.5 mg twice daily as needed, sertraline
Chronic pain-opiate dependence-on oxycodone 10 mg twice daily as needed
GERD-continue PPI and Carafate
History of gout-continue allopurinol
Right hemiplegia following a stroke. Look like has cognitive dysfunction as well.
History of C. difficile
Bedbound status
Hypoalbuminemia
Nutrition-via PEG tube
DVT prophylaxis with heparin subcutaneous
CODE STATUS�full code
Poor prognosis with all the above comorbidities and stage 4 ulcer, comfort care discussions had with on 01/26, would like to continue full code
More than 30 minutes spent in discharge including
Final examination of the patient
Summarizing hospital stay
Instructions for continuing care to all relevant caregivers
Preparation of discharge records, prescriptions, and referral forms
Total time spent (in minutes): 53
Anticipated Discharge: Today
Subjective/Interval History
-
Date of Service: February 02, 2025
seen on HD
Afebrile
BP stable
tolerating TF
Objective Data
-
Labs:
Laboratory Results
02/02/25 02/02/25
08:07 08:18
WBC 14.6 H
Hgb 8.3 L
Hct 27.5 L
Plt Count 426 H
Sodium 139
Potassium 3.7
Chloride 103
Carbon Dioxide 30
Vital Signs:
Vital Signs
Temp Pulse Resp BP Pulse Ox
99 F 98 28 113/71 96
02/02/25 12:20 02/02/25 10:45 02/02/25 10:45 02/02/25 10:45 02/02/25 10:45
I&O
12/04/2702/02/25 02/03/25
06:59 06:59 06:59
Intake Total 680 / 680 600 / 600
Balance 680 / 680 600 / 600
Physical Exam
-
General: Other (appears chronically ill, opens eyes to voice )
Respiratory: Clear to Auscultation (anterior ) and Other
Cardiac: Regular Rhythm and S1/S2
GI: Soft, Nontender, Nondistended and Peg Tube
Musculoskeletal: No Edema
Skin: Warm
Neuro: Awake
Psych: Calm
--- NOTE | 2025-02-02 13:31 | W.DCSUMMARY ---
Discharge Summary
Discharge Data
Date of Admission: 01/24/25
Date of Discharge: 02/02/25
-
Pending Results: No
Hospital Course
59-year-old male past medical history of ESRD on hemodialysis, atrial fibrillation, stage IV sacral decubitus ulcer, additional pressure injury, chronic HFpEF, anxiety, chronic opioid pain dependence, GERD, gout, right hemiplegia secondary to
stroke, dysphagia status post PEG tube bedbound, presenting from retirement. Patient was found to have sepsis secondary to pneumonia with endorgan damage with acute hypoxic respiratory failure. Patient was started on IV antibiotics. Patient was
eval by infectious disease, general surgery and nephrology. Patient completed 7-day course of treatment with IV Zosyn. Patient was weaned off oxygenation. By general surgery recommended continue with wound care and no acute need for surgical
intervention and they recommended hospice similar to previous consultation recommendation. Blood cultures checked on admission where seem to be coag negative staph which was likely deemed contaminant. Repeat blood cultures remain negative.
Patient also with anemia status post 1 unit of PRBC transfusion. Had mild leukocytosis which started to downtrend. Patient was tolerating tube feeds without difficulty. Patient remained afebrile. Blood pressure was stable. Patient also received
regularly scheduled hemodialysis. Patient be discharged back to [facility].
Discharge Plan
-
Patient Disposition: [facility]NF
Discharge Diagnosis/Procedures: Acute Hypoxic respiratory failure
Sepsis due to pneumonia with organ dysfunction of acute hypoxic respiratory failure
Leukocytosis unclear if reactive versus infection
Anemia s/p blood transfusion
Hypotension
Hypokalemia
Hyponatremia
Diet: Other diet
Additional Diets: Tube Feeding as prior to admission
Activity: As tolerated
Activity Restrictions/Additional Instructions:
Wound Care Instructions
Sacrum and L ischium: Dakin's wet to dry dressing daily and prn soilage.
R heel and medial ankle: silicone foams can assess under foams daily for any changes
L heel: skin prep and adhesive foam change q 3 days and prn soilage
air mattress
turning schedule
fiber filled boots
Referrals:
NONE,* [Family Provider, Internal Medicine] - in less than 1 week
Prescriptions:
New
Dakin's Solution 0.125 % Solution
1 applic topical DAILY Qty: 473 0RF
Continued
nystatin 100,000 unit/mL Suspension
10 ml buccal TID
acetaminophen [Tylenol] 325 mg Tablet
650 mg feeding tube DAILY
allopurinol 100 mg Tablet
100 mg feeding tube DAILY
sertraline 25 mg Tablet
25 mg feeding tube DAILY
acetaminophen [Tylenol] 325 mg Tablet
650 mg feeding tube Q6HPRN PRN (Reason: mild pain)
sucralfate 100 mg/mL suspension
1 g feeding tube BID
Rx Instructions:
when feeding is not running
pantoprazole [address] for susp in packet
40 mg feeding tube BID
bisacodyl [Dulcolax (bisacodyl)] 10 mg Suppository
10 mg [place] DAILYPRN PRN (Reason: if no bm aftr sorbitol)
sorbitol 70 % Solution
30 ml PO DAILYPRN PRN (Reason: constipation)
inulin 5 gram/5.8 gram Powder
5 g PO DAILY
lorazepam 0.5 mg Tablet
0.5 mg feeding tube BIDPRN PRN (Reason: AXNIETY) Qty: 6 0RF
oxycodone 10 mg Tablet
10 mg feeding tube BID PRN (Reason: severe pain) Qty: 6 0RF
Discharge Orders:
Discharge Patient (As Directed); Ordered 02/02/25
Ordered By: Mino Fields
Discharge Date and Time
Print Language: LEBANESE
--- NOTE | 2025-02-02 16:14 | CM ---
F/U: Patient is ready today, [facility] updated, Hospitalist updated GF.
Report: #[phone]
Fax: #[phone]
Transport arranged for 5:15pm and Hospitalist told GF the time of DC. PLAN: Return to [facility].
--- NOTE | 2025-02-02 17:54 | PTCARENOTE ---
Pt for d/c. Report to receiving RN. IV and monitor equipment removed. D/c home with EMS.
== END 2025-02-02 18:48 | DRG 871 ==
LOC: IMU 21:32
PROVIDERS: Hospitalist; Internal Medicine; Nurse Practitioner; Specialist; Student in an Organized Health Care Education/Training Program; ADMITTING PHYSICIAN Internal Medicine; ATTENDING PHYSICIAN Hospitalist; CONSULT PHYSICIAN Specialist; CONSULT PHYSICIAN Surgery; EMERGENCY PHYSICIAN Emergency Medicine; OTHER PHYSICIAN Internal Medicine Infectious Disease
PROC: 5A1D70Z Performance of Urinary Filtration, Intermittent, Less than 6 Hours Per Day (ICD-10-PCS; 2025-01-25)
PROC: 30243N1 Transfusion of Nonautologous Red Blood Cells into Central Vein, Percutaneous Approach (ICD-10-PCS; 2025-01-29)
DX: A41.9 Sepsis, unspecified organism (principal); J96.01 Acute respiratory failure with hypoxia; L89.154 Pressure ulcer of sacral region, stage 4; L89.324 Pressure ulcer of left buttock, stage 4; N18.6 End stage renal disease; J44.0 Chronic obstructive pulmonary disease with (acute) lower respiratory infection; E87.1 Hypo-osmolality and hyponatremia; I50.32 Chronic diastolic (congestive) heart failure; I13.2 Hypertensive heart and chronic kidney disease with heart failure and with stage 5 chronic kidney disease, or end stage renal disease; I69.351 Hemiplegia and hemiparesis following cerebral infarction affecting right dominant side; R65.20 Severe sepsis without septic shock; E87.6 Hypokalemia; I95.9 Hypotension, unspecified; Z99.2 Dependence on renal dialysis; E11.22 Type 2 diabetes mellitus with diabetic chronic kidney disease; D63.1 Anemia in chronic kidney disease; F41.9 Anxiety disorder, unspecified; I69.391 Dysphagia following cerebral infarction; Z93.1 Gastrostomy status; K21.9 Gastro-esophageal reflux disease without esophagitis; Z74.01 Bed confinement status; I48.91 Unspecified atrial fibrillation; Z79.01 Long term (current) use of anticoagulants; F32.A Depression, unspecified; I25.10 Atherosclerotic heart disease of native coronary artery without angina pectoris; Z79.899 Other long term (current) drug therapy
CPT/HCPCS: 71045; 80048; 80051; 80053; 80069; 80202; 81003; 81015; 82607; 82728; 82962; 83036; 83540; 83550; 83605; 83690; 83880; 84132; 84484; 85018; 85025; 85027; 86850; 86900; 86901; 86920; 87040; 87086; 87154; 87205; 87324; 87340; 87449; 87502; 87811; 93005; 94640; 96365; 99285; G0257; P9016; P9047; Q5106

== ENCOUNTER 2025-02-14 20:39 | Inpatient (IN) | payer OTHER, SELFPAY ==
[2025-02-14] VITALS (80 sets, daily range): BP systolic 41–126; BP diastolic 29–85
--- NOTE | 2025-02-14 16:44 | ED.GENMED ---
History of Present Illness
General
Chief Complaint: CODE
Source: records and ambulance crew
Time Seen by Provider: 02/14/25 16:27
History of Present Illness
History of Present Illness:
59-year-old male with multiple medical history ESRD on hemodialysis from, states, heart failure, recently hospitalized JanuaryFebruary 02 with acute hypoxic respiratory failure and sepsis related to pneumonia, treated with IV Zosyn, who
presents to the emergency department after suffering cardiac arrest while receiving dialysis. He completed proximal two thirds of the session. In the ED medics described the patient is receiving immediate CPR and received a total of 4 doses of
epinephrine before return of spontaneous circulation was achieved. Patient remains unresponsive. He had an 802 placed end-tidal 45 and heart rate in the 90s.
Past History
Past History
ED Past Medical History: Arrthythmia (A-fib), CAD, CHF, COPD, CVA, HTN, IDDM, Renal failure (Dialysis M W ), Psychiatric (Anxiety, depression) and Other (GI bleed, anemia)
Social History
Tobacco: Other (Unavailable)
Alcohol: Other (Patient is unavailable )
Living: [facility]
Employment: Not employed
Phy Exam
Physical Exam
Physical Exam:
CODE EXAM:
GENERAL EXAM: Unresponsive
EYES: Pupils equal and fixed
ENT: Patient intubated, no swelling noted
NECK: No venous distention
RESPIRATORY: Equal breath sounds
CARDIAC: Regular rate and rhythm
VASCULAR: 2+ femoral pulses noted
ABDOMEN: Soft no masses
GUAIAC: Not done
MUSCULOSKELETAL: Unable to evaluate strength
EXTREMITIES: No edema or contractures, le with bilat cushioned boots
SKIN: Large Stage IV decu ulcer
PSYCH: Mood, affect unable to evaluate
Course
Orders/Labs/Results
Orders:
Orders
02/14/25 Breakfast
NPO
Allow oral meds: Yes
Allow clear liquids: Sips of Clears
02/14/25 16:14
EKG- Treatment ONCE
02/14/25 16:[address] [CT Head W/o Iv Contrast] Urgent
Comment:
Reason For Exam: code
02/14/25 16:22
NORepinephrine 4 MG/250 ML [Levophed] 4 mg in 250 ml .ROUTE .STK-MED
02/14/25 16:30
Complete Blood Count/With Diff Urgent
Comprehensive Metabolic Panel Urgent
Lactic Acid Urgent
Manual Differential Urgent
PT/INR [Prothrombin Time] Urgent
Is patient on Coumadin/Warfarin?: No
Comment: [email or web address]
PTT Urgent
Troponin I Urgent
02/14/25 16:42
Type+Screen Urgent
Electrocardiogram (*1) Urgent
Reason for Study: Other
Other Reason for Exam: CODE
EKG- Treatment ONCE
Blood Culture Urgent
PHILL Source: Blood/Venous
Specimen Description:
02/14/25 16:45
NORepinephrine 4 MG/250 ML [Levophed] 4 mg in 250 ml IV PER PROTOCOL
02/14/25 16:46
EPINEPHrine 4 mg/250 mL NSS [Adrenalin] 4 mg in 250 ml IV NOW
Initial dose in mcg/min, then titrate:: 2
Titrate to keep:: MAP > 65 mmHg
Titrate by mcg/min:: 0.5 - 1 mcg/minute
Frequency of titrations (minutes):: 5
Maximum dose in mcg/min:: 10
Begin to taper infusion when:: Remained at goal for 4hrs
Taper by mcg/min:: 0.5 - 1 mcg/minute
Frequency of taper (minutes) if patient maintains goal:: 30
Taper to off?: Yes
If infusion off & no longer maintaining goal:: Contact Provider
02/14/25 17:09
Arterial Blood Gas Urgent
%Oxygen/Room Air: 100
02/14/25 17:15
CR Chest Portable - 1 View Urgent
Comment:
Reason For Exam: code
Reason Study Needs to be Portable: Patient Unstable
02/14/25 17:50
IV Insert/Care/Rem.- Treatment PRN
Dextrose 50%-Water [Dextrose 50% Syringe] 25 grams IV NOW STA
02/14/25 17:51
* Blood Bank Products Routine
Blood Bank Products: *Packed RBC Leuko (PRBC's
Quantity: 2
Transfuse Today: Yes
Reason: Anemia
ED Sepsis IVF Contraindication Routine
Sepsis IVF Contraindication: Chronic Hemodialysis
Piperacillin/Tazo 4.5 Gram [Zosyn] 4.5 gram in 100 ml IV NOW
Vancomycin [Vancocin] 1,500 mg 0.9% Sodium Chloride 500 ml [Nss] 500 ml IV NOW
02/14/25 18:24
Echo 2D MMode Color/Doppler Urgent
Reason for Study: pericardial effusion?
02/14/25 19:11
Urinalysis Reflex To Culture Urgent
Date Specimen was Collected: 02/14/25
Time Specimen was Collected: 16:52
Urine Microscopic Reflex Cult Urgent
Urine Culture Urgent
PHILL Source: U
Specimen Description:
Date Specimen was Collected: 02/14/25
Time Specimen was Collected: 16:52
02/14/25 19:40
NORepinephrine 4 MG/250 ML [Levophed] 4 mg in 250 ml .ROUTE .STK-MED
02/14/25 19:55
Admit/Transfer Patient As Directed
Co-Sign Provider:
Level of Care: Inpatient admission
Assign to:: ICU
Physician / Group: Garo
Diagnosis: Cardiac Arrest
Reason for Hospitalization: Cardiac Arrest
Expected length of stay greater than two midnights?: Yes
ELOS- Estimated Length of Stay in days: 5
I certify the patient meets the requirements for IP care: Yes
PRN Pain Medication Management As Directed
May give lesser potent ordered pain med per pt: Yes
preference::
Protocol:: Medication orders for pain may be administered in a
manner that supports deferring to patient preference
when the pt is:
- Requesting an ordered lesser potent pain medication.
Least to most potent pain medications are defined
as: acetaminophen < NSAID < tramadol < opioids
(morphine, oxycodone, hydromorphone).
- Requesting a lesser dose of the same medication IF
ORDERED.
- Requesting a less intrusive route of administration
if both routes are prescribed by the provider (PO <
IV).
02/14/25 19:56
Code Status As Directed
Resuscitation Status: Full Code
02/14/25 20:28
CT Chest/abd/pel W Iv Cont Urgent
Comment:
Reason For Exam: Cardiac Arrest, Anemia, Acidosis
02/14/25 21:32
0.9% Sodium Chloride 1000 ml [Nss] 1,000 ml IV BOLUS
Dextrose 5%/Water 1000 ml [D5w] 1,000 ml Sodium Bicarbonate 150 meq IV 80 mls/hr
Dextrose 50%-Water [Dextrose 50% Syringe] 12.5 grams IV [id number] PRN
EPINEPHrine 4 mg/250 mL NSS [Adrenalin] 4 mg in 250 ml IV PER PROTOCOL
Currently infusing. Continue current dose and titrate:: Yes
Titrate to keep:: MAP > 65 mmHg
Titrate by mcg/min:: 0.5-1 mcg/min
Frequency of titrations (minutes):: 5
Maximum dose in mcg/min:: 10
Begin to taper infusion when:: Remained at goal for 4hrs
Taper by mcg/min:: 0.5-1 mcg/min
Frequency of taper (minutes) if patient maintains goal:: 30
Taper to off?: Yes
If infusion off & no longer maintaining goal:: Contact Provider
Glucagon [GlucaGen] 1 mg IM PRN PRN
VANCOMYCIN Pharmacy to Dose [VANCOCIN Pharmacy to Dose] 1 each Pharmacy To Prepare [Call Pharmacy To Prepare] 0 ml IV PER PROTOCOL
02/14/25 21:32
CARDIOLOGY CONSULT Routine
Consulting Provider: Radha Flor
Was physician already notified: Yes
Reason for consult: Cardiac Arrest
Moisture Meter Reader Consult Routine
Consulting Provider: Scott Das
Was physician already notified: Yes
Reason for consult: Cardiac Arrest
NEPHROLOGY CONSULT Routine
Consulting Provider: Adis Diaz
Was physician already notified: Yes
Reason for consult: Cardiac Arrest, ESRD
WOUND/OSTOMY CONSULT Routine
Reason for Consult: Severe Pressure Wounds
Activity As Directed
Activity Level: Bedrest
Bedside Glucose Monitoring As Directed
Frequency: Q6H
EKG with chest pain [ECG as needed] As Directed
ECG as needed for:: Chest Pain
Wellington Catheter [Catheter- Indwelling] As Directed
Reason for insertion: I&O's Critical Care
Assess insertion reason daily.Remove if no longer applicable: Yes
Gastrointestinal Tubes As Directed
Type: Gastrostomy
To suction?: No
To straight drainage/gravity?: Yes
Irrigate tube?: Yes
Irrigant: Tap Water
Frequency: Q4H
Amount in mls: 30
Irrigation Directions: Irrigate Q4H and PRN
I/O [Intake/ Output] As Directed
Frequency: Per unit guidelines
Neurological Checks As Directed
Frequency: q4h
Pneumatic Compression Sleeves As Directed
Type: Knee high
Vital Signs As Directed
Frequency: Per unit guidelines
Weight As Directed
Frequency: Daily
Ventilator Initial Settings [RESP] Urgent
DX Deep Vein Thrombosis Video Routine
02/14/25 22:00
Acetaminophen [Tylenol/Feverall] 650 mg RECTAL QID
02/14/25 22:04
HH [H&H] Q6H
Troponin I Q6H
02/15/25 00:44
ABG [Arterial Blood Gas] Q4H
%Oxygen/Room Air: Vent
02/15/25 03:35
Complete Blood Count/No Diff IN AM
Magnesium IN AM
Phosphorus IN AM
Troponin I Q6H
02/15/25 06:00
EKG [Electrocardiogram (*1)] IN AM
Reason for Study: Chest Pain
Piperacillin/Tazo 2.25 Gram [Zosyn] 2.25 grams in 50 ml IV Q12H
02/15/25 10:13
Basic Metabolic Panel Q4H
Troponin I Q6H
02/15/25 10:14
HH [H&H] Q6H
02/15/25 16:58
Basic Metabolic Panel Q4H
HH [H&H] Q6H
Abnormal Lab Results
02/14/25 02/14/25 02/14/25
16:30 16:42 17:09
WBC 20.7 H 10^3/uL
(4.8-10.8)
RBC 1.84 L 10^6/uL
(4.70-6.10)
Hgb 4.6 L* g/dL
(13.0-18.0)
Hct 16.9 L* %
(39.0-52.0)
MCH 25.0 L pg
(27.0-31.0)
MCHC 27.2 L g/dL
(33.0-37.0)
RDW 18.6 H %
(11.5-14.5)
Abs Neuts (Manual) 9.7 H 10^3/uL
(1.4-6.5)
PT 29.2 H Sec
(11.4-14.6)
APTT 76.1 H Sec
(23.4-35.0)
pH 7.03 L*
(7.35-7.45)
pO2 250 H mmHg
(83-108)
HCO3 11.4 L* mmol/L
(21-28)
ABG O2 Sat (Measured) 100.0 H %
(94-98)
Potassium 3.4 L mmol/L
(3.5-5.1)
Chloride 115 H mmol/L
(98-107)
Carbon Dioxide 8 L* mmol/L
(22-30)
BUN 25 H mg/dl
(9-20)
Glucose 34 L* mg/dl
(70-99)
Lactic Acid 8.8 H* mmol/L
(0.7-2.0)
Calcium 5.7 L* mg/dl
(8.4-10.2)
AST > 7500 H* U/L
(17-59)
ALT 5033 H* U/L
(0-50)
Alkaline Phosphatase 152 H U/L
(38-126)
Total Protein 5.0 L g/dl
(6.3-8.2)
Albumin 1.6 L g/dl
(3.5-5.0)
Ur Occult Blood Reflex
Leukocyte Esterase Rfl
Urine WBC (Reflex)
Urine Bacteria (Reflex)
Urine Albumin (Reflex)
POC Glucose
Crossmatch IS Only See Detail
02/14/25 02/14/25 02/14/25
18:12 19:11 20:11
WBC
RBC
Hgb
Hct
MCH
MCHC
RDW
Abs Neuts (Manual)
PT
APTT
pH
pO2
HCO3
ABG O2 Sat (Measured)
Potassium
Chloride
Carbon Dioxide
BUN
Glucose
Lactic Acid
Calcium
AST
ALT
Alkaline Phosphatase
Total Protein
Albumin
Ur Occult Blood Reflex 4+ A
(Negative)
Leukocyte Esterase Rfl 3+ A
(Negative)
Urine WBC (Reflex) 90-100 A /HPF
(0-5)
Urine Bacteria (Reflex) Many A
(Negative)
Urine Albumin (Reflex) 3+ A
(Neg - Trace)
POC Glucose 133 H mg/dl 103 H mg/dl
(70-99) (70-99)
Crossmatch IS Only
02/14/25 16:30
02/14/25 16:30
Vital Signs
Initial and Last Documented VS:
Initial Vital Signs
Pulse Resp BP
81 16 119/85
02/14/25 16:07 02/14/25 16:07 02/14/25 16:07
Last Documented Vital Signs
Temp Pulse Resp BP Pulse Ox
101.6 F H 73 30 97/51 98
02/16/25 09:01 02/16/25 10:00 02/16/25 10:00 02/15/25 17:45 02/16/25 04:16
Procedures
Central Line
Left Femoral:
If no, reason: Emergency procedure
Central line lumen: triple
Number of attempts: 2
Central line complications: none
Sterile dressing applied?: Yes
*Pulse Oximetry
SaO2: 95
Oxygen Mode of Delivery: Ventilator
Patient hypoxic: no
*Critical Care Note
Total Time (30-74mins, 75-104mins- exclusive of procedures): 48
Update Note
Update Note:
Patient presents to the Emergency Department with __cardiac arrest
Number and Complexity of Problems Addressed at the Encounter
� Chronic conditions affecting care: ESRD, chronic decubitus
� Acute Exacerbation and/or Progression of Chronic Illness:
� Differential Diagnosis includes: Not limited to sepsis, ME, intracerebral bleed, electrolyte disorder, etc.
Amount and/or Complexity of Data to be Reviewed and Analyzed
� I performed an independent evaluation of and my interpretation is:
EKG: Read by me, normal sinus rhythm, LAD, no acute ischemia
CT: Read by Dr. Wilson, no acute abnormality noted
Xrays: Read by me, cardiomegaly
Laboratory Studies: Multiple abnormalities including transaminitis, markedly elevated lactic acidosis likely consistent with patient's hypoxia and poor perfusion given cardiac arrest, massive anemia, leukocytosis which may be
consistent with sepsis, hypoglycemia which has been corrected here and amp of D50
Other:
� Review of other/old records reveals: See above in history, discharge summary from most recent patient
� Clinical information was obtained by an independent historian: Family as well as admission record from [facility] which accompanied patient
� Prescriptions/Medications Considered but not given:
� Further testing considered but not performed: Consideration to initiate hypothermia protocol however patient's temperature is 92.8.
Risk of Complications and/or Morbidity or Mortality of Patient Management
� Social determinants of health affecting care:
� Discussion with other providers (PCP, Hospitalists, Consultants, etc):
� Escalation of care including admission/observation vs risk of discharge considered: Given lack of IV access with the exception of an IO line, placed a left-sided femoral triple-lumen which flushed well. Given patient's
hypotension that developed status post arrival here, Levophed started. Hypotension continues, second agent added.
Patient with soft blood pressure, we are increasing his rate of vasopressor now. Case discussed with who was previously unaware that he had suffered this event as a dialysis facility had not contacted her. She is on her way here, understands
how gravely ill is, and did consent to blood transfusion. She wants patient to remain full at this time. In comparison of today's chest x-ray to prior it appeared that patient has developed cardiomegaly. I did a informal bedside echo with
suspicion for pericardial effusion. Cardiology consulted and I sent the video, they agreed and called in for a stat echo which is being performed at this time. Patient has not had a history of GI bleed but is no longer on anticoagulation.
Hospitalist made aware of ICU admission.
Dr. Leigh from cardiology came to bedside, reviewed echo, does not demonstrate tamponade, mild to moderate effusion noted. She agrees that patient is gravely ill and likely has suffered injury that will result in poor recovery. Dr. Hammer also
saw patient at bedside. He also agrees.
now at bedside, Dr Wyman d/w pt details as above.
ED Attending Note
-
Portions of this chart may have been created with voice recognition software.� Occasional wrong word or��sound alike� substitutions may have occurred due to the inherent limitations of voice recognition software.
Discharge Plan
Departure
Patient Disposition: Admit
Date of Disposition: 02/14/25
Time of Disposition: 19:21
Presentation/result/management discussed w/ accepting MD/DO: Hospitalist
Condition: Critical
Discharge Problem:
Cardiac arrest
Interventions
Interventions:
*General Assessment Last Done: 02/14/25 16:11
*Neglect/Abuse Screening Last Done: 02/14/25 16:11
*ED Influenza Vaccine History Last Done: 02/14/25 16:11
[facility] Risk Assessment Tool Last Done: 02/14/25 21:49
*Risk Screen - Suicide (C-SSRS) Last Done: 02/14/25 16:11
*Nursing Disposition Last Done: 02/14/25 21:49
ED- Cardiac Assessment Last Done: 02/14/25 16:12
ED- Pulmonary Assessment Last Done: 02/14/25 16:12
Discharge Date and Time
Discharge Date/Time: 02/14/25 21:51
[2025-02-14] MEDS: LEVOPHED 250 IV ×4 (16:49→23:53)
[2025-02-14] MEDS: ADRENALIN 250 IV (16:54)
[2025-02-14 17:04] LABS: INR 2.74; PT 29.2 Sec (11.4-14.6)
[2025-02-14 17:05] LABS: APTT 76.1 Sec (23.4-35.0)
[2025-02-14 17:16] LABS: B.E. -18.0 mmol/L; O2 Saturation % 100.0 % (94-98); PCO2 43 mmHg (35-48); PO2 250 mmHg (83-108)
[2025-02-14 17:20] LABS: HCO3 11.4 mmol/L (21-28)
[2025-02-14 17:21] LABS: Albumin 1.6 g/dl (3.5-5.0); Alkaline Phosphatase 152 U/L (38-126); Blood Urea Nitrogen 25 mg/dl (9-20); Calcium 5.7 mg/dl (8.4-10.2); Carbon Dioxide 8 mmol/L (22-30); Chloride 115 mmol/L (98-107); Glucose 34 mg/dl (70-99); Potassium 3.4 mmol/L (3.5-5.1); Sodium 137 mmol/L (135-145); Total Protein 5.0 g/dl (6.3-8.2); eGFR > 60.00
[2025-02-14 17:22] LABS: Troponin I 0.022 ng/ml
[2025-02-14 17:38] LABS: Hematocrit 16.9 % (39.0-52.0); Hemoglobin 4.6 g/dL (13.0-18.0); Mean Corp Hgb Conc. 27.2 g/dL (33.0-37.0); Mean Corpuscular Volume 91.8 fL (80.0-94.0); Platelet Count 251 10^3/uL (130-400); Red Cell Dist. Width 18.6 % (11.5-14.5)
[2025-02-14 17:41] LABS: Absolute Neutrophils -Man Diff 9.7 10^3/uL (1.4-6.5); Anisocytosis 1+; Normal RBC Morphology No; Platelets Checked Yes
[2025-02-14 17:42] LABS: Hypochromasia 2+; Macrocytosis 1+; Microcytosis 1+
[2025-02-14 17:43] LABS: Total Cells Counted 100
[2025-02-14 17:52] LABS: ALT (SGPT) 5033 U/L (0-50); AST (SGOT) > 7500 U/L (17-59)
[2025-02-14] MEDS: DEXTROSE 50% SYRINGE 25 GRAMS IV (17:55)
[2025-02-14] MEDS: ZOSYN 100 IV (18:10)
[2025-02-14] MEDS: VANCOCIN 530 MG IV (18:33)
--- NOTE | 2025-02-14 19:00 | EDRN ---
Report received at bedside, ultrasound at bedside doing an Echo and starting blood at this time.
--- NOTE | 2025-02-14 19:15 | EDRN ---
Stayed with patient for first 15 min. of blood infusion, no interaction noted at this time, vss with the medications running.
[2025-02-14 19:27] LABS: Urine Character Mucous (Clear)
[2025-02-14 19:52] LABS: Urine White Cell 90-100 /HPF (0-5)
[2025-02-14 19:53] LABS: Urine Red Blood Cell 0-2 /HPF (0-2)
--- NOTE | 2025-02-14 20:15 | EDRN ---
at bedside, Dr. Wyman spoke with her about care, 2nd unit of blood sent for at this time.
--- NOTE | 2025-02-14 20:38 | HPS.HSE ---
Family Physician
-
Family Physician: Scarlett Thompson
Chief Complaint
-
Cardiac Arrest
History of Present Illness
Patient is a 59y M with PMH significant for ESRD, severe sacral / ischial wounds, prior CVAs, non-verbal / paraplegic / tube-feed dependent and bed-bound at baseline who presents to ED from NH / HD s/p cardiac arrest. Patient was his usual
baseline on Friday according to his . He typically makes eye contact / is interactive. Very minimal speech - mostly 'no'. Today staff at [facility] noted that he seemed 'tired' this AM. He was receiving his usual HD treatment today - about 2/3
through - when he suffered a cardiac arrest.
CPR was started and patient received 4 rounds of epi prior to ROSC. He was transported to the ED for further evaluation.
At the time of my examination, patient is unresponsive on no sedation. He is intubated / on vent support. Family is at the bedside.
CXR showed cardiomegaly with straightening of the heart border. Bedside echo was performed and reviewed by Cardiology and showed mild - moderate effusion without tamponade.
Patient was most recently admitted 01/24 - 02/02 for sepsis / pneumonia.
Medical History
Past Medical History
Past Medical History: Reports Other
Additional Past Medical History:
ASCVD / Prior CVAs
Chronic Non-Verbal / Paraplegia
Bedbound / Tube-Feed Dependent
Severe Sacral / Ischial Pressure Wounds
ESRD on HD
Anemia of CKD
Hypertension / Hypotension
Paroxysmal Atrial Fibrillation
Mesenteric Ischemia
History of CDiff
History of GI Bleeding
Chronic Pain / Opioid Dependence
Past Surgical History: Reports Other
Additional Past Surgical History:
PEG tube placement
Exploratory laparotomy
Left upper extremity AV fistula
R IJ HD Cath
Tracheostomy / Removal
Social History
Unable to obtain full social history at this time due to: Patient Non-verbal
Family History
Family History: Not pertinent
Allergies / Home Medications
Allergies reflects when Allergies were last updated in [facility].
Home Medications with original date entered in [facility]
Allergy/Medication List:
Allergies
Allergy/AdvReac Type Severity Reaction Status Date / Time
No Known Allergies Allergy Verified 01/24/25 15:53
Home Medications
acetaminophen 325 mg tablet (Tylenol) 650 mg feeding tube DAILY mild Pain 11/22/24
allopurinol 100 mg tablet 100 mg feeding tube DAILY Gout 11/22/24
nystatin 100,000 unit/mL oral suspension 10 ml buccal TID Infection 11/22/24
sertraline 25 mg tablet 25 mg feeding tube DAILY Mental Health/Anxiety 11/22/24
acetaminophen 325 mg tablet (Tylenol) 650 mg feeding tube Q6HPRN PRN mild pain 12/13/24
pantoprazole 40 mg granules delayed-release for susp in packet 40 mg feeding tube BID gerd 12/13/24
sucralfate 100 mg/mL oral suspension 1 g feeding tube BID gerd 12/13/24
bisacodyl 10 mg rectal suppository (Dulcolax (bisacodyl)) 10 mg TN DAILYPRN PRN if no bm aftr sorbitol 01/24/25
sorbitol 70 % solution 30 ml PO DAILYPRN PRN constipation 01/24/25
lorazepam 0.5 mg tablet 0.5 mg feeding tube BIDPRN PRN AXNIETY #6 tabs 01/29/25
oxycodone 10 mg tablet 10 mg feeding tube BID PRN severe pain #6 tabs 01/29/25
sodium hypochlorite 0.125 % solution (Dakin's Solution) 1 applic topical DAILY #473 mL 01/29/25
psyllium 1 tbsp feeding tube DAILY 02/14/25
Review of Systems
-
Unable to obtain full review of systems at this time due to: Patient Non-verbal
Physical Exam
Vital Signs
Vital Signs
Temp Pulse Resp BP Pulse Ox
34.1 F L 72 7 106/61 100
02/14/25 20:15 02/14/25 20:30 02/14/25 20:30 02/14/25 20:30 02/14/25 20:30
Physical Exam
General: Other (Unresponsive 59y M intubated / on vent support.)
HEENT: Other (Dry MM. Poor dentition. ETT in place.)
Respiratory: Clear; No Wheezes, Rales or Rhonchi
Cardiac: S1/S2 and Regular Rhythm
GI: Soft, Non Tender, Non Distended, Normal Bowel Sounds and Other (G tube site without bleeding / discharge.)
Rectal: Other (Fecal collection device in place with loose stool. Stool heme positive.)
Musculoskeletal: No Clubbing and No Cyanosis
Skin: Other (Large / very deep sacral wound. L ischial wound.)
Neuro: Other (Unresponsive. No spontaneous movement.)
Laboratory Results
-
02/14/25 16:30
02/14/25 16:30
Laboratory Results
PT 29.2 Sec (11.4-14.6) H 02/14/25 16:30
INR 2.74 02/14/25 16:30
APTT 76.1 Sec (23.4-35.0) H 02/14/25 16:30
pH 7.03 (7.35-7.45) L* 02/14/25 17:09
pCO2 43 mmHg (35-48) 02/14/25 17:09
pO2 250 mmHg (83-108) H 02/14/25 17:09
HCO3 11.4 mmol/L (21-28) L* 02/14/25 17:09
Lactic Acid 8.8 mmol/L (0.7-2.0) H* 02/14/25 16:30
Total Bilirubin 0.5 mg/dl (0.2-1.3) 02/14/25 16:30
AST > 7500 U/L (17-59) H* 02/14/25 16:30
ALT 5033 U/L (0-50) H* 02/14/25 16:30
Alkaline Phosphatase 152 U/L (38-126) H 02/14/25 16:30
Troponin I 0.022 ng/ml 02/14/25 16:30
Impression/Plan
-
A/P: Patient is a 59y M with PMH significant for prior CVA, ESRD, severe pressure wounds, paraplegia / non-verbal who presents to ED after cardiac arrest on HD today.
Cardiac Arrest
Lactic Acidosis secondary to the above
Abnormal LFTs - 'Shock Liver' secondary to the above
- Admit to ICU for further evaluation and treatment.
- No meaningful responses thus far - unresponsive on no sedation in the ED x several hours.
- CT head unremarkable - no acute findings, no marked edema.
- Continue supportive care including vent support, pressors, etc.
- Investigate potential causes of arrest as noted below.
- Aggressive avoidance of hyperthermia.
- Empiric broad spectrum abx for now while any infectious process is ruled out.
- Follow for neurologic changes / recovery.
- Drycleaner, Cardiology evaluations.
Multifocal Pneumonia
Possible Cystitis
Possible Osteomyelitis
Sepsis secondary to the above
- CT C/A/P done in the ED shows evidence of the above.
- Life-threatening organ dysfunction with cardiac arrest, VDRF, pressor-dependent hypotension, etc.
- Continue broad spectrum abx / supportive care for now.
- Follow-up culture data.
- Localized wound care.
- Consider Surgical evaluation once stabilized - though on multiple prior occasions have noted futility of intervention and advised comfort care approach.
Acute on Chronic Anemia
Heme Positive Stools
- Hgb = 4.6 compared to prior baseline around 8-9.
- 2 units PRBCs ordered.
- IV PPI BID.
- GI evaluation.
- Follow H&H and provide additional blood products if needed for resuscitation.
Pericardial Effusion
- Mild - moderate effusion on Echo / CT. No tamponade appreciated.
- Cardiology evaluation.
- Follow serial EKG, troponin, etc.
ESRD on HD
- On HD today when arrest occurred.
- Nephrology consulted for further recommendations / HD needs.
- IVFs with supplemental bicarb for now given marked acidosis.
- Follow lytes / labs and correct as able.
Hypoglycemia
- s/p arrest. Current glucose > 100.
- Follow fingerstick glucose and provide supplemental dextrose if needed.
Chronic Bed-Bound Status / Paraplegia
Chronically Non-Verbal
Tube Feed Dependent
Major Pressure Wounds
- Dismal prognosis overall given cardiac arrest and poor functional status prior to event.
- Wound Care for local care to large wounds.
- Hospice / Palliative Care has been advised in the past.
- Reviewed at length with at the bedside (and family via phone). Patient Full Code at this time.
DVT Prophylaxis: SCDs for now
Code Status: Full
--- NOTE | 2025-02-14 21:08 | EDRN ---
Report to ICU, hem test done and is positive, dr. Wyman aware, patient will be transported to CT and then upstairs to ICU.
[2025-02-14 22:10] LABS: Venous Blood Gas B.E. -20.5 mmol/L (-4 to +4); Venous Blood Gas O2 Sat % 94.9 %
[2025-02-14 22:16] LABS: Hematocrit 31.0 % (39.0-52.0); Hemoglobin 9.1 g/dL (13.0-18.0)
[2025-02-14] MEDS: NSS (PRESERVATIVE FREE) 20 ML IV (22:20)
[2025-02-14] MEDS: PROTONIX IV 80 MG IV (22:20)
--- NOTE | 2025-02-14 22:25 | PHA.VAN.IN ---
Assessment
- Assessment
Renal Function: Patient has ESRD, on chronic Hemodialysis
Concomitant Antimicrobials: PIPERACILLIN/TAZO
Plan
- Plan
Initial / Loading Dose: VANCOMCYIN 1500 MG IV ~ 1830
Maintenance Regimen: Dosing by random level.
Monitoring: A random level is scheduled on 02/15 at 0600, pharmacy will follow.
Pharmacokinetics Vancomycin I
- -
Patient Age: 59
Patient Sex: Male
Vancomycin Day #: 1
Indication: Bacteremia
Requesting Provider: Dr Garo Fowler
Height / Weight:
Height 5 ft 6 in
Actual Weight 78.4 kg
Pertinent Past Medical History: IDDM pt w. Renal failure on Dialysis MWF presented w. cardiac arrest.
- Vital Signs / Lab Results
Temp Pulse Resp BP Pulse Ox
93.6 F L 83 8 99/68 100
02/14/25 21:09 02/14/25 21:09 02/14/25 21:09 02/14/25 21:09 02/14/25 21:09
Lab Results - Hematology
02/14/25
16:30
WBC 20.7 H
Band Neutrophils 3
Lab Results - Chemistry
02/14/25
16:30
BUN 25 H
Creatinine 1.3
Albumin 1.6 L
02/14/25
16:30
Lactic Acid 8.8 H*
Lab Results - Urine
02/14/25
19:11
Urine Nitrite (Reflex) Negative
Leukocyte Esterase Rfl 3+ A
Urine WBC (Reflex) 90-100 A
Ur Squamous Epith Cells 3-5
Urine Bacteria (Reflex) Many A
[2025-02-14 22:39] LABS: Magnesium 2.4 mg/dl (1.6-2.3)
[2025-02-14] MEDS: SODIUM BICARBONATE 1150 MEQ IV (22:47)
--- NOTE | 2025-02-14 22:52 | PTCARENOTE ---
2nd unit of PRBCs completed (see TAR).
[2025-02-14 22:56] LABS: Troponin I 0.078 ng/ml
[2025-02-14 22:57] LABS: Blood Urea Nitrogen 38 mg/dl (9-20); Calcium 7.8 mg/dl (8.4-10.2); Carbon Dioxide 6 mmol/L (22-30); Chloride 102 mmol/L (98-107); Estimated Creatinine Clearance 33 ml/min; Glucose 132 mg/dl (70-99); Potassium 3.9 mmol/L (3.5-5.1); Sodium 134 mmol/L (135-145); eGFR 33.66
[2025-02-14] MEDS: PROTONIX 100 IV (22:59)
[2025-02-14] MEDS: SODIUM BICARBONATE 100 MEQ IV (22:59)
--- NOTE | 2025-02-14 23:55 | W.PN.UPDATE ---
Update Note
Progress Note Update
Procedure Note: Arterial Line�
� Right Wrist Arrow 20 (05/04)�
Diagnosis:��Cardiac arrest
IV Line Comments: Uneventful Procedure�
Danielle completed pre-procedure: Yes�
A-Line Comments: Sterile technique as per standard protocol, Ultrasound guided insertion�
Functioning�A-line in situ: Yes�
A-line Insertion Start Time:��2315
A-line in at:��2330
[2025-02-14] MEDS: FIRVANQ 125 MG TUBE (23:58)
[2025-02-15] VITALS (7 sets, daily range): BP systolic 74–105; BP diastolic 51–65; PULSE 91; BMI 27.0
--- NOTE | 2025-02-15 00:11 | CON.CAR ---
Consultation
Consultation Request
Date/Time Consultation Requested: 02/14/25
Date/Time Consultation Performed: 02/14/25, 7 pm
Requesting Provider: Dr. Wellington
Performing Provider: Dr. Flor
Reason for Consultation: cardiac arrest
Medical History
-
Chief Complaint: cardiac arrest, concern for pericardial effusion
History of Present Illness:
Patient seen and examined in ED bed 40 after he presented to [facility] ED following mvq-vo-hkpfeado cardiac arrest at dialysis. Mr. Lopez is a 59-year-old medically complex chronically ill gentleman from [facility] with a past medical
history of end-stage renal disease on hemodialysis MWF via right IJ permacath HD catheter [also has an AV fistula, 2024], atrial fibrillation not on anticoagulation reportedly secondary to prior GI bleeds, prior stroke with aphasia/dysphagia and
paraplegia, bedbound since 2022, chronic anemia from chronic disease as well as recurrent GI bleeds,, history of ischemic colitis, history of intra-abdominal abscess/necrotizing infection status post exploratory laparotomy/bowel resection, chronic
heart failure with preserved ejection fraction, type 2 diabetes mellitus, chronic opiate pain dependence, GERD, gout, dysphagia status post PEG tube, stage IV sacral decubitus ulcer with recent hospitalization from January 2402/02/2025 at
[facility] for pneumonia with sepsis. Per chart review, goals of care were discussed with patient's including recommendations for hospice which she declined
.
I was notified by ER physician around 62PM their concern of possible pericardial effusion and tamponade following [id number]-zzeavpzi cardiac arrest and request for bedside echocardiogram. Per ER physician report, after completing two thirds of his
usual dialysis session he suffered a cardiac arrest. Per records, he received immediate CPR and received a total of 4 doses of epinephrine before ROSC was achieved. She had performed a informal bedside echocardiogram which demonstrated a
pericardial effusion. Patient is intubated, unresponsive, not requiring sedation with fixed dilated pupils on the ventilator, hypotensive on Levophed and epinephrine gtts.
.
Initial lab work: WBC 20.7 [previously 4.6 on 02/02/2025], hemoglobin 4.6 g/dL [previously 8.3 g/dL on 02/02/2025], platelets 251,000, PT/INR 29.2/2.74, sodium 137, potassium 3.4, carbon dioxide 8, BUN and creatinine 25/1.3, glucose 34, lactic acid
8.8, calcium 5.7, AST greater than 7500, ALT 5033, alkaline phosphatase 152, initial cardiac troponin 0.022, albumin 1.6. Initial blood gas: 7.03/43/250/11/100%. CT of the head without contrast showed no acute abnormality. Portable chest x-ray
showed cardiomegaly with left basal opacity which may represent a small effusion versus pneumonia. EKG was normal sinus rhythm with a left axis deviation and nonspecific ST-T wave abnormalities. At the time of my consultation he had received 1
unit packed red blood cells with a second packed red blood cell being home. Hypoglycemia was treated. Blood cultures were drawn in the ER and he received empiric antibiotics with vancomycin and Zosyn.
.
Bedside 2D echocardiogram demonstrated vigorous left ventricular systolic function with LV ejection fraction visually estimated 70 to 75% with no obvious regional wall motion abnormalities. Normal RV size and systolic function. No hemodynamically
significant valve pathology. There was a mild to moderate pericardial effusion without echocardiographic evidence of tamponade, new when compared to echocardiogram done 12/17/2024.

Past medical history: end-stage renal disease on hemodialysis MWF via right chest wall HD catheter [also has an AV fistula, 2024], atrial fibrillation not on anticoagulation reportedly secondary to prior GI bleed, prior stroke with aphasia/dysphagia
and paraplegia, bedbound since 2022 chronic anemia from chronic disease as well as recurrent GI bleeds, chronic heart failure with preserved ejection fraction, type 2 diabetes mellitus, chronic opiate pain dependence, GERD, gout, dysphagia status
post PEG tube, stage IV sacral decubitus ulcer
Past surgical history: PEG tube placement, history of intra-abdominal abscess/necrotizing infection status post exploratory laparotomy/bowel resection, AV fistula, right IJ permacath, soft tissue infection status post debridement, prior tracheostomy
status post removal.
Past Medical History
Past Medical History: Other (See HPI)
Past Surgical History: Other (See HPI)
Social History
Personal:
Living: Long-Term
Family History
Family History: Unable to Obtain
Allergies / Home Medications
Allergy/AdvReac Type Severity Reaction Status Date / Time
No Known Allergies Allergy Verified 01/24/25 15:53
�Medication �Instructions �Recorded �Confirmed �Type
acetaminophen 325 mg tablet 650 mg feeding tube DAILY mild Pain 11/22/24 02/14/25 History
(Tylenol)
allopurinol 100 mg tablet 100 mg feeding tube DAILY Gout 11/22/24 02/14/25 History
nystatin 100,000 unit/mL oral 10 ml buccal TID Infection 11/22/24 02/14/25 History
suspension
sertraline 25 mg tablet 25 mg feeding tube DAILY Mental 11/22/24 02/14/25 History
Health/Anxiety
acetaminophen 325 mg tablet 650 mg feeding tube Q6HPRN PRN 12/13/24 02/14/25 History
(Tylenol) mild pain
pantoprazole 40 mg granules 40 mg feeding tube BID gerd 12/13/24 02/14/25 History
delayed-release for susp in packet
sucralfate 100 mg/mL oral 1 g feeding tube BID gerd 12/13/24 02/14/25 History
suspension
bisacodyl 10 mg rectal suppository 10 mg [place] DAILYPRN PRN if no bm 01/24/25 02/14/25 History
(Dulcolax (bisacodyl)) aftr sorbitol
sorbitol 70 % solution 30 ml PO DAILYPRN PRN constipation 01/24/25 02/14/25 History
lorazepam 0.5 mg tablet 0.5 mg feeding tube BIDPRN PRN 01/29/25 02/14/25 Rx
AXNIETY #6 tabs
sodium hypochlorite 0.125 % 1 applic topical DAILY #473 mL 01/29/25 02/14/25 Rx
solution (Dakin's Solution)
oxycodone 10 mg tablet 10 mg feeding tube BID severe pain 02/14/25 02/14/25 History
psyllium 1 tbsp feeding tube DAILY 02/14/25 02/14/25 History
Review of Systems
-
Unable to obtain full review of systems at this time due to: Acuity, Patient Intubation and Patient Non Verbal
History Source: Physician
Physical Exam
Vital Signs
Temp Pulse Resp BP Pulse Ox
93.7 F L 71 5 87/55 95
02/14/25 23:47 02/14/25 22:51 02/14/25 22:51 02/14/25 22:51 02/14/25 23:38
Lab Results
Troponin I 0.078 ng/ml H* D 02/14/25 22:04
Physical Exam
General: Other (59-year-old critically ill gentleman who appears older than stated age. Intubated and unresponsive not on sedation)
HEENT: Other (Poor dentition, ET tube. Fixed dilated pupils)
Respiratory: Other (Decreased breath sounds bilaterally with fine crackles on the ventilator)
Cardiac: S1/S2 and Regular Rhythm; Negative Murmur, Rub or Peripheral Edema
GI: Soft, Non Distended and Normal Bowel Sounds (Decreased bowel sounds. PEG tube)
Rectal: Other (Rectal tube present)
Musculoskeletal: No Edema
Neuro: Other (Unresponsive )
Impression / Plan
-
Posting Clerk: Not obtained
Impression:
Kng-is-duvijmtt cardiac arrest during dialysis
Ventilator dependent respiratory failure
Shock, likely multifactorial postarrest, severe anemia, possible infection requiring multiple pressors
Concern for anoxic injury
Severe acute on chronic anemia
Lactic acidosis
History of type 2 diabetes mellitus with presenting hypoglycemia following cardiac arrest
Mild to moderate pericardial effusion, no echocardiographic evidence of tamponade
Recent hospitalization from 01/24 - 02/02/2025 for acute hypoxic respiratory distress, sepsis secondary to pneumonia status post antibiotics and anemia requiring transfusion
Chronic kidney disease on dialysis through permacath Friday [also has an AV fistula, 2024]
Hx of paroxysmal atrial fibrillation not on anticoagulation reportedly secondary to prior GI bleed
Hx stroke with aphasia/dysphagia and paraplegia who has been bedbound since 2022 at [facility]
History of GI bleeds/GERD
History of PEG tube
Stage IV sacral decubitus ulcer
Plan:
Critically ill and medically complex 59-year-old gentleman status post [id number] cardiac arrest during dialysis with ROSC after 4 doses of epinephrine and CPR, intubated by EMS found to have significant leukocytosis with lactic acidosis,
severe anemia with presenting hemoglobin 4.6 g/dL currently receiving second unit PRBCs and shock on multiple pressors.
- Bedside 2D echocardiogram requested after unofficial ER echocardiogram noted a pericardial effusion was reviewed with Dr. Wellington. Normal if not vigorously LV systolic function with no obvious regional wall motion abnormalities and no
hemodynamically significant valve pathology. There is a small to moderate pericardial effusion without echocardiographic evidence of tamponade.
- He is unresponsive with fixed and dilated pupils not on sedation raising concern for anoxic injury.
- He is in sinus rhythm with no acute ischemic changes on EKG. Initial cardiac troponin 0.022
- Await official records from EMS and dialysis center, which were unavailable for my review
- Patient's is apparently en route after being notified of cardiac arrest by ED staff.
- Case discussed with Dr. Wellington and Dr. Wyman, who knows patient from last hospitalization. Goal of care have been discussed with his during previous hospitalizations; she had declined palliative care and hospice
- Unfortunately, Mr Lopez is gravely ill with severe baseline disability and poor likelihood of meaningful recovery. Hospice is appropriate. CODE STATUS to be discussed with ER staff and hospitalist once arrives. I am available to participate
in discussions with the patient's , if requested.
Data Reviewed
-
EKG: Report Reviewed by me
Radiology: Report Reviewed by me
CT Scan: Report Reviewed by me
Ultrasound: Report Reviewed by me
Medical Tests (Nuc Med, Echo etc): Report Reviewed by me
Labs: Labs Reviewed by me
Old Records: Reviewed
[2025-02-15] MEDS: PITRESSIN 100 IV ×3 (00:19→16:27)
[2025-02-15 00:56] LABS: B.E. -18.1 mmol/L; O2 Saturation % 98.8 % (94-98); PCO2 23 mmHg (35-48); PO2 158 mmHg (83-108)
[2025-02-15 01:02] LABS: HCO3 8.6 mmol/L (21-28)
[2025-02-15] MEDS: SODIUM BICARBONATE 50 MEQ IV ×4 (01:20→08:30)
--- NOTE | 2025-02-15 01:35 | PTCARENOTE ---
Received pt from ED RN, pt pulled over to our bed. Pt unresponsive, no purposeful movement. Pupils b/l 3 nonreactive, ICU OVEN EQUIPMENT REPAIRER notified. Neuro checks per order. NSR w/ PVCs on the monitor, doppler pulses. Levo, epi and vaso gtts (see MAR). ETT #8 @ 24
cm, AC 24/500/5/40% O2 sat 100%, lungs coarse/rhonchi. PEG tube in place. FMS in place, leaking around, hygiene provided. Eliz for I&O, temp sensing. Wounds charted on admission. Temps low 93, ICU OVEN EQUIPMENT REPAIRER spoke with Dr. Wyman, want temp to slowly rise,
warm blankets placed on pt. Right radial nandini placed zeroed and transduced. Mouth with white film and thrush, mouth care provided multiple times. CHG bath provided. at bedside. Safe environment maintained.
[2025-02-15] MEDS: LEVOPHED 250 IV (02:12)
--- NOTE | 2025-02-15 03:41 | PTCARENOTE ---
Systems reviewed, no new changes in assessment. AM labs provided. Gtts maintained. Safe environment maintained.
[2025-02-15 03:44] LABS: B.E. -17.1 mmol/L; O2 Saturation % 98.7 % (94-98); PCO2 25 mmHg (35-48); PO2 123 mmHg (83-108)
[2025-02-15 03:57] LABS: HCO3 9.5 mmol/L (21-28)
[2025-02-15] MEDS: LEVOPHED 258 MG IV ×4 (04:25→22:05)
[2025-02-15 04:39] LABS: Albumin 2.4 g/dl (3.5-5.0); Alkaline Phosphatase 423 U/L (38-126); Blood Urea Nitrogen 42 mg/dl (9-20); Calcium 7.9 mg/dl (8.4-10.2); Carbon Dioxide 5 mmol/L (22-30); Chloride 100 mmol/L (98-107); Estimated Creatinine Clearance 32 ml/min; Glucose 264 mg/dl (70-99); Magnesium 2.2 mg/dl (1.6-2.3); Potassium 3.1 mmol/L (3.5-5.1); Sodium 133 mmol/L (135-145); Total Protein 6.6 g/dl (6.3-8.2); eGFR 31.91
[2025-02-15 04:52] LABS: Troponin I 0.174 ng/ml
[2025-02-15 05:05] LABS: ALT (SGPT) 6585 U/L (0-50)
[2025-02-15] MEDS: KCL 50 IV (05:06)
[2025-02-15] MEDS: ZOSYN 50 IV (05:09)
[2025-02-15] MEDS: FIRVANQ 125 MG TUBE ×4 (05:14→23:34)
[2025-02-15 05:18] LABS: AST (SGOT) > 7500 U/L (17-59)
[2025-02-15 05:26] LABS: Hematocrit 32.6 % (39.0-52.0); Hemoglobin 10.2 g/dL (13.0-18.0); Mean Corp Hgb Conc. 31.3 g/dL (33.0-37.0); Mean Corpuscular Volume 86.7 fL (80.0-94.0); Platelet Count 518 10^3/uL (130-400); Red Cell Dist. Width 17.1 % (11.5-14.5)
[2025-02-15] MEDS: ADRENALIN 250 IV ×2 (05:34→10:17)
--- NOTE | 2025-02-15 06:23 | PTCARENOTE ---
ICU FORMULATOR COMPOUNDER notified about pts BP MAPs 57-62, pt maxed on levo and epi (see worklist).
--- NOTE | 2025-02-15 06:35 | PTCARENOTE ---
Blood sugar did not transfer over 0000 132 and 0600 202.
--- NOTE | 2025-02-15 07:13 | CON.INTV ---
Consultation
Consultation Request
Date/Time Consultation Requested: 02/14/2025
Date/Time Consultation Performed: 02/15/2025
Medical History
-
Chief Complaint: Cardiac arrest
History of Present Illness:
Patient is a 59-year-old gentleman with complex medical history is currently intubated and unresponsive. History mostly obtained from review of records as well as discussion with other healthcare team members. Patient has known history of
end-stage renal disease and is on dialysis chronically. Patient was on his dialysis session on 02/14 and about two thirds through the dialysis he suffered a cardiac arrest. CPR was started and patient received 4 rounds of epi prior to ROSC being
achieved. Patient was intubated in the field and was transferred to emergency room for further evaluation. Initial labs in the emergency room showed severe metabolic acidosis as well as hypoglycemia along with shock. Patient also had a bedside
echocardiogram performed in the emergency room concerning for mild pericardial effusion however no tamponade was observed. Patient was subsequently admitted to the ICU and envelope press operator consultation was requested for further input.
Past Medical History
Past Medical History: Reports Other
Additional Past Medical History:
ASCVD / Prior CVAs
Chronic Non-Verbal / Paraplegia
Bedbound / Tube-Feed Dependent
Severe Sacral / Ischial Pressure Wounds
ESRD on HD
Anemia of CKD
Hypertension / Hypotension
Paroxysmal Atrial Fibrillation
Mesenteric Ischemia
History of CDiff
History of GI Bleeding
Chronic Pain / Opioid Dependence
Past Surgical History: Reports Other
Additional Past Surgical History:
PEG tube placement
Exploratory laparotomy
Left upper extremity AV fistula
R IJ HD Cath
Tracheostomy / Removal
Allergies / Home Medications
Allergies
Allergy/AdvReac Type Severity Reaction Status Date / Time
No Known Allergies Allergy Verified 01/24/25 15:53
Home Medications
�Medication �Instructions �Recorded �Confirmed �Last Taken �Type
acetaminophen 325 mg tablet 650 mg feeding tube DAILY mild Pain 11/22/24 02/14/25 Unknown History
(Tylenol)
allopurinol 100 mg tablet 100 mg feeding tube DAILY Gout 11/22/24 02/14/25 Unknown History
nystatin 100,000 unit/mL oral 10 ml buccal TID Infection 11/22/24 02/14/25 Unknown History
suspension
sertraline 25 mg tablet 25 mg feeding tube DAILY Mental 11/22/24 02/14/25 Unknown History
Health/Anxiety
acetaminophen 325 mg tablet 650 mg feeding tube Q6HPRN PRN 12/13/24 02/14/25 Unknown History
(Tylenol) mild pain
pantoprazole 40 mg granules 40 mg feeding tube BID gerd 12/13/24 02/14/25 Unknown History
delayed-release for susp in packet
sucralfate 100 mg/mL oral 1 g feeding tube BID gerd 12/13/24 02/14/25 Unknown History
suspension
bisacodyl 10 mg rectal suppository 10 mg CA DAILYPRN PRN if no bm 01/24/25 02/14/25 Unknown History
(Dulcolax (bisacodyl)) aftr sorbitol
sorbitol 70 % solution 30 ml PO DAILYPRN PRN constipation 01/24/25 02/14/25 Unknown History
lorazepam 0.5 mg tablet 0.5 mg feeding tube BIDPRN PRN 01/29/25 02/14/25 Unknown Rx
AXNIETY #6 tabs
sodium hypochlorite 0.125 % 1 applic topical DAILY #473 mL 01/29/25 02/14/25 Unknown Rx
solution (Dakin's Solution)
oxycodone 10 mg tablet 10 mg feeding tube BID severe pain 02/14/25 02/14/25 Unknown History
psyllium 1 tbsp feeding tube DAILY 02/14/25 02/14/25 Unknown History
Review of Systems
-
Unable to Obtain full review of systems at this time due to: Patient Intubation
Vitals / Labs / Diagnostic Testing
Vital Signs
Temp Pulse Resp BP Pulse Ox
94.6 F L 86 15 100/65 100
02/15/25 03:15 02/15/25 06:30 02/15/25 06:00 02/15/25 04:00 02/15/25 06:30
Laboratory Results
02/14/25 02/14/25 02/14/25
16:30 17:09 21:32
PT 29.2 H
INR 2.74
APTT 76.1 H
pH 7.03 L* Cancelled
pCO2 43 Cancelled
pO2 250 H Cancelled
HCO3 11.4 L* Cancelled
O2 Delivery Level Cancelled
02/14/25 02/15/25 02/15/25
21:37 00:44 03:35
PT
INR
APTT
pH Cancelled 7.18 L* 7.19 L*
pCO2 Cancelled 23 L 25 L
pO2 Cancelled 158 H 123 H
HCO3 Cancelled 8.6 L* 9.5 L*
O2 Delivery Level Cancelled
Diagnostic Testing:
Physical Exam
-
HEENT: Normocephalic
Cardiovascular: S1/S2
Respiratory: Clear
GI: Soft
Neurology: Other (Unresponsive. Pupils are mid dilated, nonresponsive to light, no gag or cough reflex.)
Skin: Warm
General: Comfortable
Assessment
-
#1. Cardiac arrest
- Lqs-ky-fslaudyh arrest during hemodialysis, ROSC achieved after 4 doses of epinephrine and CPR, intubated in the field
- ? Etiology. Hypoglycemia noted on admission
- Concern for anoxic injury considering neurological exam, CT head unremarkable.
- Echocardiogram without wall motion abnormality, pericardial effusion noted without tamponade, no PE noted on CT with contrast study.
- Target normothermia, initiate EEG to evaluate for any nonconvulsive seizures
- Monitor electrolytes closely
#2. Encephalopathy, ?Anoxic
- Persistent encephalopathy concerning for anoxic brain injury
- Portable EEG
- Neurology consult
- Stay off all sedation
#2. Severe metabolic acidosis, elevated lactate
- Admission ABG 7.03/ > 7.19/
- Lactate 8.8 > 12.5 > 13.1
- Suspect related to prolonged cardiac arrest and hypoperfusion. No evidence of bowel ischemia noted on CT abdomen pelvis with contrast.
- Patient initiating on fourth pressor, unlikely to tolerate renal replacement therapy. May consider CRRT if he improves hemodynamically.
#3. Shock
- Suspect septic shock versus cardioplegia postcardiac arrest
- Critically ill, MAP around mid 50s, on 3 pressors maxed out including epinephrine, Levophed and vasopressin. Add a fourth pressor phenylephrine
- 2 pushes of sodium bicarbonate given in view of worsening hypotension despite pressors. Increased respiratory rate to 30 to help compensate for metabolic acidosis
- Add Ringer lactate bolus 1 L stat, hydrocortisone 100 mg IV push followed by 50 mg every 6 hours. Continue bicarbonate infusion
- Continue pressor support to keep MAP above 65, continue broad-spectrum antibiotic with Vanco and piperacillin/tazobactam
#4. Multifocal pneumonia.
- Suspect aspiration, could be related to CPR
- Continue broad-spectrum antibiotics, send tracheal aspirate for cultures and sensitivities
#5. Anemia on admission
- ?Lab error, f/u Hb 9.1
- S/p 2 units of PRBC. Continue Protonix infusion.
#6. DM with hypoglycemia on admission
- Continue glucose management per protocol
#7. ESRD, on HD
- Patient completed 2 third of his hemodialysis on 02/14
- Right IJ tunnel catheter in place
- Nephrology consultation
#8. Acute liver injury
- Suspect related to cardiac arrest
- Continue to monitor
#9. Pericardial effusion
- Mild to moderate pericardial effusion on echo without tamponade
- ? Uremic
#10. Minimally elevated troponin
- No wall motion abnormality noted, EKG not suggestive of ST elevation
- Suspect troponin leak related to CPR and respiratory failure
- Cardiology service on case
#11. Cholelithiasis with small volume pericholecystic fluid
- N.p.o., continue broad-spectrum antibiotics
- Right upper quadrant ultrasound for further evaluation
#12. Pyuria, ?UTI
- Chronic Wellington in place
- Continue broad-spectrum antibiotics, follow-up on cultures
#13. Large sacral ulcer with concern for osteomyelitis
- Continue vancomycin and piperacillin tazobactam
- Follow-up on cultures
Other medical diagnoses:
- H/o CVA with resultant paraplegia
- Paroxysmal A fib, not on AC due to GI bleeds
- GERD
- S/p PEG tube
Goals of care discussion: 02/15, 7:30 AM, met with patient's at bedside. Patient being initiated on fourth pressor, critically ill. No gag or cough reflex noted. Pupils are mid dilated and fixed. Updated that patient unlikely to
survive this hospitalization considering worsening MAP despite maximum supportive care. Patient at risk of another cardiac arrest in the short-term. Patient's requested neurology input to help make decision. Discussed with neurology service,
await formal recommendations.
Critical Care time 65 mins -- The patient is admitted for acute critical illness for the treatment of vital organ failure and/or prevention of further life-threatening conditions. Total care includes time spent in review of history, physical exam,
medications, hemodynamic/ventilator parameters, laboratory data, imaging and discussion with house staff, pharmacy, respiratory therapy, public safety officer, and nursing.
Data:
EKG 01/2025: PVCs, Sinus rhythm, QTc 495
ECHO 01/2025: 1. Vigorous left ventricular systolic function with no obvious regional wall motion abnormalities. Left ventricular ejection fraction visually estimated 70 to 75%.
2. Normal RV size and systolic function.
3. Trileaflet, mildly sclerotic aortic valve without stenosis or regurgitation.
4. No significant mitral, tricuspid or pulmonic regurgitation.
5. Mild to moderate pericardial effusion without echocardiographic evidence of tamponade.
6. Compared to prior study report dated 12/17/2024, pericardial effusion is new.
CT Head 01/2025: No acute change
CT C/A/P 01/2025: 1. There is a consolidation with surrounding groundglass opacities in the left lower lobe and to a lesser extent the posterior right upper and lower lobe suspicious for multifocal pneumonia.
2. Small pericardial effusion.
3. Hepatomegaly, similar to prior.
4. Cholelithiasis. There is small volume pericholecystic free fluid which can be seen with acute cholecystitis. Consider correlation with right upper quadrant ultrasound.
5. There is wall thickening with fluid throughout the colon suggestive of malabsorption/diarrheal illness. Fecal management system is present.
6. Wellington catheter is present with chronic urinary bladder wall thickening, similar to prior.
7. Large sacral decubitus ulcer with absence of the distal sacrum and coccyx which appears similar to prior. There is new foci of gas which extend towards the left ischial tuberosity for which developing osteomyelitis is possible.
[2025-02-15 07:32] LABS: B.E. -14.1 mmol/L; O2 Saturation % 98.9 % (94-98); PCO2 26 mmHg (35-48); PO2 162 mmHg (83-108)
[2025-02-15 07:38] LABS: HCO3 11.4 mmol/L (21-28)
[2025-02-15 07:42] LABS: Glucose - Point of Care 202 mg/dl (70-99)
[2025-02-15 07:53] LABS: Glucose - Point of Care 132 mg/dl (70-99)
[2025-02-15 07:57] LABS: Glucose - Point of Care 124 mg/dl (70-99)
[2025-02-15 07:57] LABS: Glucose - Point of Care 103 mg/dl (70-99)
[2025-02-15 07:57] LABS: Glucose - Point of Care 141 mg/dl (70-99)
[2025-02-15 07:57] LABS: Glucose - Point of Care 133 mg/dl (70-99)
--- NOTE | 2025-02-15 08:12 | W.PN.CARDCBS ---
Today's Communication / Plan
-
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
prognosis very poor
We will sign off, please call if questions
Impression / Plan
-
Geoduck Diver: Not obtained
Impression:
Zhn-so-khuxebvs cardiac arrest during dialysis
Ventilator dependent respiratory failure
Shock, likely multifactorial postarrest, severe anemia, possible infection requiring multiple pressors
Concern for anoxic injury
Severe acute on chronic anemia
Lactic acidosis
History of type 2 diabetes mellitus with presenting hypoglycemia following cardiac arrest
Mild to moderate pericardial effusion, no echocardiographic evidence of tamponade
Recent hospitalization from 01/24 - 02/02/2025 for acute hypoxic respiratory distress, sepsis secondary to pneumonia status post antibiotics and anemia requiring transfusion
[facility] [also has an AV fistula, 2024]
Hx of paroxysmal atrial fibrillation not on anticoagulation reportedly secondary to prior GI bleed
Hx stroke with aphasia/dysphagia and paraplegia who has been bedbound since 2022 at [facility]
History of GI bleeds/GERD
History of PEG tube
Stage IV sacral decubitus ulcer
Plan:
At this point, he has multisystem organ failure and what is probably extremely severe anoxic encephalopathy
Currently on multiple pressors, on ventilator, minimal neurologic response, EEG in progress.
is at bedside.
His echocardiogram looks surprisingly good.
Prognosis is very poor, seems very realistic. It seems unlikely that patient can survive or have meaningful quality of life, particularly in light of all his baseline comorbidities.
Pending further neurologic assessment, my presumption is that care will be withdrawn.
We will sign off, please call if questions.
Progress Note - Geoduck Diver
Subjective
Date of Service: February 15, 2025:
59-year-old man with [id number] cardiac arrest at dialysis.
[place] end-stage renal disease on hemodialysis, lives at [facility], has hemodialysis catheter and an AV fistula, presumably permanent atrial fibrillation, not anticoagulated with prior GI bleeds, history of stroke with aphasia and paraplegia,
bedbound, ischemic colitis, history of intra-abdominal abscess status post bowel resection, HFpEF, diabetes, opioid dependence with chronic pain, GERD, gout, PEG tube, stage IV sacral decubitus, hospitalized January with sepsis and pneumonia, has
previously refused hospice. Rhythm at dialysis unit unknown but no report of shock, received CPR and epinephrine x 4, now intubated.
Current meds: IV epinephrine, vancomycin, Zosyn, IV bicarbonate, p.o. Vanco, Pitressin, norepinephrine, phenylephrine, hydrocortisone 50 mg IV Q6
100/65, pulse 86, temp is 34.8, pulse is 80s, intake and output +1.5 L, weight is 78.2 kg, unchanged intubated, unresponsive, no gag or corneals, EEG in progress lungs grossly clear regular rate and rhythm, extremities without clubbing cyanosis or
edema
Chest x-ray lungs relatively clear, mild blunting left costophrenic angle, hemodialysis catheter in place, cardiomegaly, possible minimal vascular congestion
ECG: Sinus rhythm mild prolongation of QT, PACs, left axis deviation
Echo: EF 70-75%, normal RV, aortic sclerosis, no mitral regurgitation, mild to moderate pericardial effusion, not hemodynamically significant
White count 66.2,Last hemoglobin 10.2, ABG 7.2 5/162/26/11 0.4, base excess is -14.1, last potassium 3.1, last CO2 was 5 , AST greater than 7500, ALT 6585, peak troponin 0.174 test
Objective
Labs:
Labs
Hgb 10.2 g/dL (13.0-18.0) L 02/15/25 03:35
Hgb Cancelled 02/15/25 03:35
Hct 32.6 % (39.0-52.0) L 02/15/25 03:35
Hct Cancelled 02/15/25 03:35
Plt Count 518 10^3/uL (130-400) H D 02/15/25 03:35
PT 29.2 Sec (11.4-14.6) H 02/14/25 16:30
INR 2.74 02/14/25 16:30
APTT 76.1 Sec (23.4-35.0) H 02/14/25 16:30
Sodium 133 mmol/L (135-145) L 02/15/25 03:35
Potassium 3.1 mmol/L (3.5-5.1) L 02/15/25 03:35
BUN 42 mg/dl (9-20) H 02/15/25 03:35
Creatinine 2.3 mg/dL (0.7-1.3) H 02/15/25 03:35
Glucose 264 mg/dl (70-99) H 02/15/25 03:35
Troponins
02/14/25 02/14/25 02/14/25
16:30 21:37 22:04
Troponin I 0.022 Cancelled 0.078 H* D
02/15/25
03:35
Troponin I 0.174 H* D
Vital Signs and I&O:
Vital Signs
Temp Pulse Resp BP Pulse Ox
34.8 C L 86 15 100/65 100
02/15/25 03:15 02/15/25 06:30 02/15/25 06:00 02/15/25 04:00 02/15/25 07:43
Vital Signs
Temp Pulse Resp BP Pulse Ox
34.8 C L 86 15 100/65 100
02/15/25 03:15 02/15/25 06:30 02/15/25 06:00 02/15/25 04:00 02/15/25 07:43
Intake & Output
02/13/25 02/14/25 02/15/25 02/16/25
07:59 07:59 07:59 07:59
Intake Total 2499.5 / 2499.5
Output Total 950 / 950
Balance 1549.5 / 1549.5
Physical Exam
Physical Exam
See above
[2025-02-15] MEDS: SOLU-CORTEF 100 MG IV (08:29)
[2025-02-15] MEDS: NEO-SYNEPHRINE 250 IV ×2 (08:30→14:53)
[2025-02-15] MEDS: LR 1000 IV (08:30)
--- NOTE | 2025-02-15 08:37 | PTCARENOTE ---
Pt remains unresponsive, no purposeful movement. B/L pupils 3mm nonreactive. Absent gag reflex. NSR with PACs on monitor. ETT #8 @24cm, AC 30/500/5/100%, SaO2 97%. Levo/vaso/epi max dose. Pt hypotensive, vladimir added. Labs sent. Repeat ABG drawn. 2
amps bicarb given. 1000ml LR bolus given. PEG tube in place. FMS in place, draining liquid brown/bloody stool. Wellington in place, minimal brown output. Wellington care provided. Sacral wounds cleaned, packed and redressed. Oral care provided. Client Development Manager
called. at bedside.
--- NOTE | 2025-02-15 08:48 | W.CON.NEPH ---
Consultation
-
Date/Time Consultation Requested: 02/15/2025 8 AM
Date/Time Consultation Performed: 02/02/2025 8 AM
Requesting Provider: Dr. Wyamn
Performing Provider: Dr. Diaz
Reason for Consultation: ESRD
Medical History
-
Chief Complaint: ESRD
History of Present Illness:
59-year-old male with history of stroke with subsequent paraplegia dysphagia with PEG tube history of tracheostomy status post removal with ESRD on Friday dialysis schedule at [facility]. He has chronic anemia treated with NIVIA on
dialysis but also has history of GI bleed with several admissions for that. He has atrial fibrillation though not on anticoagulation given GI bleed. He also has diabetes mellitus type 2 though not on medication which is stable. He suffered a
cardiac arrest at dialysis yesterday about two thirds into treatment. CPR started he received epinephrine with return of spine traction. He was sent to the emergency room. In the ER he was noted to be hypotensive 40 and a hemoglobin of 4 points.
His LFTs were strongly elevated. Overnight his white count has jumped to 60,000. His lactic acid remains elevated above 10. He is on 4 pressors and on the ventilator at 100% oxygen. Echocardiogram disclosed pericardium but no tamponade.
Past Medical History
Atrial fibrillation, CVA -Residual aphasia and paraplegia, residual dysphagia status post PEG, HTN and End-stage renal disease on hemodialysis Friday via right IJ PermCath, he is status post a left upper extremity AV fistula not
being used
Past Surgical History: Other (PEG tube placement, exploratory laparotomy, AVF)
Social History
Tobacco: Non-Smoker
Alcohol: None
Drug: None
Family History
Family History: Not Pertinent and Unable to Obtain (non verbal)
Allergies / Home Medications
Allergy/AdvReac Type Severity Reaction Status Date / Time
No Known Allergies Allergy Verified 01/24/25 15:53
�Medication �Instructions �Recorded �Confirmed �Type
acetaminophen 325 mg tablet 650 mg feeding tube DAILY mild Pain 11/22/24 02/14/25 History
(Tylenol)
allopurinol 100 mg tablet 100 mg feeding tube DAILY Gout 11/22/24 02/14/25 History
nystatin 100,000 unit/mL oral 10 ml buccal TID Infection 11/22/24 02/14/25 History
suspension
sertraline 25 mg tablet 25 mg feeding tube DAILY Mental 11/22/24 02/14/25 History
Health/Anxiety
acetaminophen 325 mg tablet 650 mg feeding tube Q6HPRN PRN 12/13/24 02/14/25 History
(Tylenol) mild pain
pantoprazole 40 mg granules 40 mg feeding tube BID gerd 12/13/24 02/14/25 History
delayed-release for susp in packet
sucralfate 100 mg/mL oral 1 g feeding tube BID gerd 12/13/24 02/14/25 History
suspension
bisacodyl 10 mg rectal suppository 10 mg [place] DAILYPRN PRN if no bm 01/24/25 02/14/25 History
(Dulcolax (bisacodyl)) aftr sorbitol
sorbitol 70 % solution 30 ml PO DAILYPRN PRN constipation 01/24/25 02/14/25 History
lorazepam 0.5 mg tablet 0.5 mg feeding tube BIDPRN PRN 01/29/25 02/14/25 Rx
AXNIETY #6 tabs
sodium hypochlorite 0.125 % 1 applic topical DAILY #473 mL 01/29/25 02/14/25 Rx
solution (Dakin's Solution)
oxycodone 10 mg tablet 10 mg feeding tube BID severe pain 02/14/25 02/14/25 History
psyllium 1 tbsp feeding tube DAILY 02/14/25 02/14/25 History
Review of Systems
-
Unable to obtain full review of systems at this time due to: Patient Intubation and Patient Non Verbal
Physical Exam
Vital Signs
Vital Signs
Temp Pulse Resp BP Pulse Ox
94.6 F L 86 15 100/65 100
02/15/25 03:15 02/15/25 06:30 02/15/25 06:00 02/15/25 04:00 02/15/25 07:43
Lab Results
WBC 66.2 10^3/uL (4.8-10.8) H* 02/15/25 03:35
RBC 3.76 10^6/uL (4.70-6.10) L 02/15/25 03:35
Plt Count 518 10^3/uL (130-400) H D 02/15/25 03:35
eGFR 31.91 02/15/25 03:35
Phosphorus 7.4 mg/dl (2.5-4.5) H 02/15/25 03:35
Albumin 2.4 g/dl (3.5-5.0) L 02/15/25 03:35
Laboratory Tests
02/14/25 02/15/25 02/15/25
16:30 03:35 07:27
WBC 20.7 H
Hgb 4.6 L*
Plt Count 251
INR 2.74
APTT 76.1 H
Potassium 3.1 L
Carbon Dioxide 5 L*
Lactic Acid 11.8 H*
AST > 7500 H*
ALT 6585 H*
Troponin I 0.174 H* D
CT chest abdomen and pelvis 02/14/2025
IMPRESSION:
1. There is a consolidation with surrounding groundglass opacities in the left lower lobe and to a lesser extent the posterior right upper and lower lobe suspicious for multifocal pneumonia.
2. Small pericardial effusion.
3. Hepatomegaly, similar to prior.
4. Cholelithiasis. There is small volume pericholecystic free fluid which can be seen with acute cholecystitis. Consider correlation with right upper quadrant ultrasound.
5. There is wall thickening with fluid throughout the colon suggestive of malabsorption/diarrheal illness. Fecal management system is present.
6. Wellington catheter is present with chronic urinary bladder wall thickening, similar to prior.
7. Large sacral decubitus ulcer with absence of the distal sacrum and coccyx which appears similar to prior. There is new foci of gas which extend towards the left ischial tuberosity for which developing osteomyelitis is possible.
Physical Exam
Patient intubated but not sedated. Noncommunicative. Neck was supple with trachea midline and no thyromegaly. Heart was regular rate and rhythm without rubs. Lower extremities without edema. Lungs were clear to auscultation bilaterally and with
normal excursion. Abdomen was soft, nontender, with normal active bowel sounds, and no hepatosplenomegaly. Skin was without rash and with normal turgor.
Data Reviewed
-
Radiology: Image Personally Visualized and interpreted
CT Scan: Report Reviewed by me
Medical Tests (Nuc Med, Echo etc): Image Personally Visualized and interpreted
Labs: Labs Reviewed by me
Old Records: Reviewed
Assessment/Plan
-
IMP:
Anemia
ESRD on HD-F [facility]
left UE AVF unused
right chest wall catheter
Dysphagia on PEG
Hx of CVA with residual aphasia and paraplegia
Urine retention
Diabetes mellitus type 2
Cardiac arrest
Hypotension
Vent dependent respiratory failure
Lactic acidosis
Plan:
CRRT initiation
Maintain on pressure greater than 65
Follow lactate
Empiric antibiotics
Patient remains full code
Critical care time 40 minutes
--- NOTE | 2025-02-15 09:13 | CON.GI ---
Addendum entered and electronically signed by Mat Alfaro MD 02/15/25 10:09:
I saw and examined the patient.
The SOCCER PLAYER or PA's note was reviewed and I agree with the note.
Comment: 59yo male with complex medical history detailed below presents following cardiac arrest at HD, metabolic acidosis, septic shock, WBC 20.7--->66K, shock liver, Hgb 4.6--->10.2 after PRBC. Stool brown with blood tinge. Unresponsive, at
bedside. Seen by GI during prior admissions for anemia, GI bleed, PEG. Last admission in December too ill for anemia work up. Recent admission last week January for PNA/sepsis, respiratory distress. AST >7500, ALT 5033. INR 2.74.
REC:
Cardiac arrest OOH with multisystem organ failure
Prognosis poor
Shock liver with markedly elevated LFTs
Appropriate Hgb response to 2 units PRBC. Monitor
Supportive care
Reviewed with
Original Note:
Consultation
-
Date/Time Consultation Requested: 02/15/25 0005
Date/Time Consultation Performed: 02/15/25 0900
Requesting Provider: Jonah Wyman DO
Performing Provider: PENG Casper, Mat Alfaro MD
Reason for Consultation: increased LFT, anemia
Medical History
Chief Complaint / HPI
Chief Complaint: rectal bleeding
History of Present Illness:
Pt is a 59 year old man with a past medical history significant for PAF , CVA with residual paraplegia/aphasia, s/p trach with removal, PEG tube placed in Mar 2023 w/ h/o intraabdominal abscess with necrotizing infection requiring multiple
surgeries with removal and replacement of PEG placement (May 2023) prior c-diff August 2024 then neg in November, cholelithiasis, NIDDM, CHF, ESRD on Dialysis, mesenteric ischemia, chronic pain and GI follow in past with anemia, GI bleeding and
peg management. He most recent admission was 01/24- 02/02 with PNA. Last GI evaluation was in December and goals of care were discussed with and pt remained too ill for anemia work up. Pt now returns to with onset of fatigue then concern
for cardiac arrest during HD with ROSC. On admission noted with multiple concern with mental status issue with concern for anoxia, severe metabolic acidosis, shock/sepsis with marked leukocytosis, hypotension with multiple pressors, PNA, anemia
with hbg 4.9 with brown blood tinged stool, and marked rise in LFT's with bili 2.5, AST >7500, ALT 6585, alk phos 423 with INR 2.74. Pt is non verbal so limited subjective data on admission.
EGD: 11/03/24 protano - Normal esophagus - Erythematous mucosa in the gastric body, fundus, and antrum. Biopsied. Suspect this was the cause of the hematemesis and anemia- Normal examined duodenum.
Past Medical History
Past Medical History: Arrhythmias (PAF on Eliquis ), CHF, CVA, HTN, NIDDM, Renal Failure (on Dialysis) and Other (cholelithiasis, chronic sacral wound, prior c-diff august 2024, mesenteric ischemia, GI bleeding, chronic pain, s/p cardiac arrest 02/14 )
Past Surgical History: Other ( h/o intraabdominal abscess with necrotizing infection requiring multiple surgeries with removal and replacement of PEG placement (May 2023),)
Social History
Tobacco: Non-Smoker (per chart)
Alcohol: None (per chart)
Drug: None (per chart )
Personal:
Living: Assisted
Employment: Not Employed
Family History
Family History: Unable to Obtain (pt non verbal )
Allergies / Home Medications
Allergy/AdvReac Type Severity Reaction Status Date / Time
No Known Allergies Allergy Verified 01/24/25 15:53
�Medication �Instructions �Recorded
acetaminophen 325 mg tablet 650 mg feeding tube DAILY mild Pain 11/22/24
(Tylenol)
allopurinol 100 mg tablet 100 mg feeding tube DAILY Gout 11/22/24
nystatin 100,000 unit/mL oral 10 ml buccal TID Infection 11/22/24
suspension
sertraline 25 mg tablet 25 mg feeding tube DAILY Mental 11/22/24
Health/Anxiety
acetaminophen 325 mg tablet 650 mg feeding tube Q6HPRN PRN 12/13/24
(Tylenol) mild pain
pantoprazole 40 mg granules 40 mg feeding tube BID gerd 12/13/24
delayed-release for susp in packet
sucralfate 100 mg/mL oral 1 g feeding tube BID gerd 12/13/24
suspension
bisacodyl 10 mg rectal suppository 10 mg [place] DAILYPRN PRN if no bm 01/24/25
(Dulcolax (bisacodyl)) aftr sorbitol
sorbitol 70 % solution 30 ml PO DAILYPRN PRN constipation 01/24/25
lorazepam 0.5 mg tablet 0.5 mg feeding tube BIDPRN PRN 01/29/25
AXNIETY #6 tabs
sodium hypochlorite 0.125 % 1 applic topical DAILY #473 mL 01/29/25
solution (Dakin's Solution)
oxycodone 10 mg tablet 10 mg feeding tube BID severe pain 02/14/25
psyllium 1 tbsp feeding tube DAILY 02/14/25
Review of Systems
-
Unable to obtain full review of systems at this time due to: Patient Intubation and Patient Non Verbal
History Source: Other (chart )
Constitutional: Reports Other (hypothermic )
Abdomen/GI: Reports Bloody Stools (on admission )
Hematologic/Lymphatic: Reports Bleeding
Vital Signs
Temp Pulse Resp BP Pulse Ox
94.6 F L 86 15 100/65 100
02/15/25 03:15 02/15/25 06:30 02/15/25 06:00 02/15/25 04:00 02/15/25 07:43
Physical Exam
Exam
General: Other (ill appearing, non verbal non responsive to voice )
HEENT: Normocephalic and Other (mild jaundice )
Respiratory: Other (decreased )
Cardiac: Regular Rhythm
GI: Soft, Non Distended, Tender (limited ) and Other (peg in place )
Musculoskeletal: No Clubbing and No Cyanosis
Skin: Warm and Dry
Neuro: Other
Psych: Calm
Results
WBC 66.2 10^3/uL (4.8-10.8) H* 02/15/25 03:35
Hgb 10.2 g/dL (13.0-18.0) L 02/15/25 03:35
Hgb Cancelled 02/15/25 03:35
Hct 32.6 % (39.0-52.0) L 02/15/25 03:35
Hct Cancelled 02/15/25 03:35
MCV 86.7 fL (80.0-94.0) 02/15/25 03:35
Plt Count 518 10^3/uL (130-400) H D 02/15/25 03:35
PT 29.2 Sec (11.4-14.6) H 02/14/25 16:30
INR 2.74 02/14/25 16:30
APTT 76.1 Sec (23.4-35.0) H 02/14/25 16:30
Sodium 133 mmol/L (135-145) L 02/15/25 03:35
Potassium 3.1 mmol/L (3.5-5.1) L 02/15/25 03:35
Chloride 100 mmol/L (98-107) 02/15/25 03:35
Carbon Dioxide 5 mmol/L (22-30) L* 02/15/25 03:35
BUN 42 mg/dl (9-20) H 02/15/25 03:35
Creatinine 2.3 mg/dL (0.7-1.3) H 02/15/25 03:35
Calcium 7.9 mg/dl (8.4-10.2) L 02/15/25 03:35
Total Bilirubin 2.5 mg/dl (0.2-1.3) H D 02/15/25 03:35
AST > 7500 U/L (17-59) H* 02/15/25 03:35
ALT 6585 U/L (0-50) H* 02/15/25 03:35
Alkaline Phosphatase 423 U/L (38-126) H 02/15/25 03:35
Diagnostic Image Results:
02/14/25 CT Chest/abd/pel W Iv Cont
1. There is a consolidation with surrounding groundglass opacities in the left lower lobe and to a lesser extent the posterior right upper and lower lobe suspicious for multifocal pneumonia.
2. Small pericardial effusion.
3. Hepatomegaly, similar to prior.
4. Cholelithiasis. There is small volume pericholecystic free fluid which can be seen with acute cholecystitis. Consider correlation with right upper quadrant ultrasound.
5. There is wall thickening with fluid throughout the colon suggestive of malabsorption/diarrheal illness. Fecal management system is present.
6. Wellington catheter is present with chronic urinary bladder wall thickening, similar to prior.
7. Large sacral decubitus ulcer with absence of the distal sacrum and coccyx which appears similar to prior. There is new foci of gas which extend towards the left ischial tuberosity for which developing osteomyelitis is possible.
Prior GI Procedures:
EGD: 11/03/24 protano - Normal esophagus - Erythematous mucosa in the gastric body, fundus, and antrum. Biopsied. Suspect this was the cause of the hematemesis and anemia- Normal examined duodenum.
Colonoscopy: unknown -- reviewed prior admission too ill to proceed
Assessment / Plan
-
Pt is a 59 year old man with a past medical history significant for PAF, CVA with residual paraplegia/aphasia, s/p trach with removal, PEG tube placed in Mar 2023 w/ h/o intraabdominal abscess with necrotizing infection requiring multiple
surgeries with removal and replacement of PEG placement (May 2023) prior c-diff August 2024 then neg in November, cholelithiasis, NIDDM, CHF, ESRD on Dialysis, mesenteric ischemia, chronic pain and GI follow in past with anemia, GI bleeding and
peg management. He most recent admission was 01/24- 02/02 with PNA. Last GI evaluation was in December and goals of care were discussed with and pt remained too ill for anemia work up. Pt now returns to with onset of fatigue then concern
for cardiac arrest during HD with ROSC. On admission noted with multiple concern with mental status issue with concern for anoxia, severe metabolic acidosis, shock/sepsis with marked leukocytosis, hypotension with multiple pressors, PNA, anemia
with hbg 4.9 with brown blood tinged stool, and marked rise in LFT's with bili 2.5, AST >7500, ALT 6585, alk phos 423 with INR 2.74. Pt is non verbal so limited subjective data on admission.
EGD: 11/03/24 protano - Normal esophagus - Erythematous mucosa in the gastric body, fundus, and antrum. Biopsied. Suspect this was the cause of the hematemesis and anemia- Normal examined duodenum.
02/14/25 CT Chest/abd/pel W Iv Cont
1. There is a consolidation with surrounding groundglass opacities in the left lower lobe and to a lesser extent the posterior right upper and lower lobe suspicious for multifocal pneumonia.
2. Small pericardial effusion.
3. Hepatomegaly, similar to prior.
4. Cholelithiasis. There is small volume pericholecystic free fluid which can be seen with acute cholecystitis. Consider correlation with right upper quadrant ultrasound.
5. There is wall thickening with fluid throughout the colon suggestive of malabsorption/diarrheal illness. Fecal management system is present.
6. Wellington catheter is present with chronic urinary bladder wall thickening, similar to prior.
7. Large sacral decubitus ulcer with absence of the distal sacrum and coccyx which appears similar to prior. There is new foci of gas which extend towards the left ischial tuberosity for which developing osteomyelitis is possible.
-s/p cardiac arrest with shock
-marked elevated LFT's with concern for shock liver
-coagulopathy off Eliquis on discharge
-anemia with brown/blood tinged stools acute on chronic
-lactic acidosis
-hypotension on admission with multiple pressors
-colonic thickening per CT
-leukocytosis
PNA with VDRF
-hx hematemesis 11/2024 with erythematous mucosa gastric body
-hx CVA with residual paraplegia/aphasia/dysphagia
-chronic peg /dysphagia
-troponin increase
other med problems:
-h/o intraabdominal abscess with necrotizing infection requiring multiple surgeries with removal and replacement of PEG placement (May 2023)
- cholelithiasis
-NIDDM
-CHF
- ESRD on Dialysis now on CRRT
-hx HTN
-c-diff
PLAN:
s/p arrest with multiple issues on admission with hbg 4.9 s/p 2 units then up to 9 ? labs error vs other
current stools with brown with some trace of visible blood
trend hgb, transfuse as needed
no role for GI procedures as too ill to proceed cont supportive care
marked rise in LFT's likely shock liver with concern arrest prior to admission cont to trend, concern for multi system failure
INR elevated will repeat at 1400
from GI standpoint agree with health promoter team-- critically ill, continue goals of care discussion with family, prognosis poor
-
-
Thank you for consultation and allowing me to participate in the patient's care. Please call the director of strategic communications GI physician during the after hours with any questions or concerns.
--- NOTE | 2025-02-15 09:44 | CON.NEURO ---
Addendum entered and electronically signed by Eyad Gonzalez MD 02/15/25 12:26:
Total Critical Care Time= 30 minutes.
The neurological system is affected and the action required by me to prevent further deterioration or potential was control over the item listed first in the Impressions and Recommendations section of this note.
I was present and personally examined the patient. I discussed patient care with other professional health care providers.
Addendum entered and electronically signed by Eyad Gonzalez MD 02/15/25 12:24:
Studies independently reviewed
I agree with the below findings as listed by the nurse practitioner and these are my addenda
Exam:
Patient is unresponsive to verbal or physical stimuli. Appears to be moving head with ventilator stimulated respirations. No spontaneous movements of the body.
Pupils minimally constricted to light presentation. Slow and incomplete eye closure bilaterally after passive eye opening. Negative doll's eyes. Negative corneal reflexes bilaterally
Reflexes absent throughout. Toes are silent bilaterally.
Impression/recommendations:
Anoxic injury secondary to cardiac arrest. Poor prognostic factors for meaningful neurological recovery include extended time down, lack of responsiveness following return of normal cerebral blood flow. Best determination of potential neurological
recovery will be 3 days after anoxic injury
Check EEG with consideration for continuous EEG depending on initial EEG results
Continue supportive care
Consider palliative care consultation
Will follow peripherally.
Original Note:
Neuro Assessment/Plan
Assessment
Patient is a 59y M with H significant for ESRD, severe sacral / ischial wounds, prior CVAs, non-verbal / paraplegic / tube-feed dependent and bed-bound at baseline who presented to [facility] on 02/14/2025 from [facility] s/p cardiac arrest.
Head CT: No acute intracranial abnormality noted.
Labs: WBC 66.2, Hgb 4.6, Glucose 34, Lactic acid 11.8, Ca 5.7, AST >7500, ALT 5033
Plan
Impression: unresponsiveness in a patient s/p cardiac arrest given 4 rounds of epi prior to ROSC and multiple issues on admission, prognosis poor
-continue EEG
-continue supportive care
-may consider repeat imaging to aid in decision making
-will continue to follow as needed
Consultation
Order
Date of Consultation: 02/15/25
Requesting Provider: Hospitalist/ Roland KHOURY
Reason for Consult: unresponsiveness s/p cardiac arrest
Subjective/Objective
Subjective Data
Date of Service: February 15, 2025
Patient is unresponsive and intubated. All information obtained via chart and medical providers. Taken from H&P 'Patient is a 59y M with PMH significant for ESRD, severe sacral / ischial wounds, prior CVAs, non-verbal / paraplegic / tube-feed
dependent and bed-bound at baseline who presents [facility] s/p cardiac arrest. Patient was his usual baseline on Friday according to his . He typically makes eye contact / is interactive. Very minimal speech - mostly 'no'. Today
staff at [facility] noted that he seemed 'tired' this AM. He was receiving his usual HD treatment today - about 2/3 through - when he suffered a cardiac arrest. CPR was started and patient received 4 rounds of epi prior to ROSC. He was transported to the
ED for further evaluation. At the time of my examination, patient is unresponsive on no sedation. He is intubated / on vent support. Family is at the bedside. CXR showed cardiomegaly with straightening of the heart border. Bedside echo was
performed and reviewed by Cardiology and showed mild - moderate effusion without tamponade. Patient was most recently admitted 01/24 - 02/02 for sepsis / pneumonia.'
In the ER he was noted to be hypotensive 40 and a hemoglobin of 4 points. His LFTs were strongly elevated. Overnight his white count has jumped to 60,000. His lactic acid remains elevated above 10. He is on 4 pressors and on the ventilator at
100% oxygen. On current exam patient intubated and not on any sedation. Patient does not have corneal, cough or gag reflex. No response to painful stimuli. Pupils are minimally responsive and sluggish. On continuous EEG.
Objective Data
Vital Signs
Temp Pulse Resp BP Pulse Ox
94.6 F L 86 15 100/65 100
02/15/25 03:15 02/15/25 06:30 02/15/25 06:00 02/15/25 04:00 02/15/25 07:43
PT 29.2 Sec (11.4-14.6) H 02/14/25 16:30
INR 2.74 02/14/25 16:30
APTT 76.1 Sec (23.4-35.0) H 02/14/25 16:30
Sodium 133 mmol/L (135-145) L 02/15/25 03:35
Potassium 3.1 mmol/L (3.5-5.1) L 02/15/25 03:35
BUN 42 mg/dl (9-20) H 02/15/25 03:35
Glucose 264 mg/dl (70-99) H 02/15/25 03:35
Calcium 7.9 mg/dl (8.4-10.2) L 02/15/25 03:35
Phosphorus 7.4 mg/dl (2.5-4.5) H 02/15/25 03:35
Patient Allergies
No Known Allergies Allergy (Verified 01/24/25 15:53)
Physical Exam
-
Physical exam limited, patient intubated and unresponsive, minimal pupils, no corneal reflexes and no gag/cough reflex, no response to noxious stimuli.
General: Appears Chronically Ill and Older than Stated Age
Data Reviewed
-
CT Head: Report Reviewed and Image Reviewed
Echocardiogram: Report Reviewed
EEG: Pending
Medical Test Reports: Report Reviewed
Labs: Report Reviewed
Reviewed with: Physician
Old Records: Summarized
Medications
-
Active Medications
Generic Name Dose Route Start Last Admin
Trade Name Freq PRN Reason Stop Dose Admin
Dextrose 12.5 grams 02/14/25 21:32
Dextrose 50% (0.5 Grams/Ml) 50 Ml Syringe IV 03/14/25 21:31
[id number] PRN
hypoglycemia
Protocol
Glucagon 1 mg 02/14/25 21:32
Glucagon 1 Mg Vial IM 03/14/25 21:31
PRN PRN
hypoglycemia
Protocol
Hemodialysis Solution 0 ml 02/15/25 09:00
Nxstage [id number] (K+ 4 Meq/L) Hd Soln 5 L Bag CRRT-IRR 02/16/25 08:59
ORDERED RATE PATRICIO
Hydrocortisone Sodium Succinate 50 mg 02/15/25 12:00
Hydrocortisone Sodium Succinate 100 Mg/2 Ml Vial IV 03/15/25 11:59
Q6 PATRICIO
Epinephrine HCl 4 mg in 250 mls @ 0 mls/hr 02/14/25 21:32 02/15/25 05:34
Adrenalin IV 250 mls
PER PROTOCOL PATRICIO Administration
Protocol
Per Protocol
Vancomycin HCl 1 each/ Device 0 mls @ 0 mls/hr 02/14/25 21:32
IV
PER PROTOCOL PATRICIO
Protocol
As Directed
Piperacillin Sod/Tazobactam Sod 2.25 grams in 50 mls @ 100 mls/hr 02/15/25 06:00 02/15/25 05:09
Zosyn IV 50 mls
Q12H PATRICIO Administration
Sodium Bicarbonate 150 meq/ 1,150 mls @ 80 mls/hr 02/14/25 21:32 02/14/25 22:47
Dextrose IV 1,150 mls
.[id number] PATRICIO Administration
Vasopressin 20 units in 100 mls @ 0 mls/hr 02/15/25 00:15 02/15/25 07:05
Pitressin IV 100 mls
PER PROTOCOL PATRICIO Administration
Protocol
Per Protocol
Norepinephrine Bitartrate 8 mg 258 mls @ 0 mls/hr 02/15/25 04:15 02/15/25 08:15
/ Sodium Chloride IV 258 mls
PER PROTOCOL PATRICIO Administration
Protocol
Per Protocol
Phenylephrine HCl 50 mg in 250 mls @ 0 mls/hr 02/15/25 07:45 02/15/25 08:30
Gaurav-Synephrine IV 250 mls
PER PROTOCOL PATRICIO Administration
Protocol
Per Protocol
Calcium Gluconate 3,000 mg/ 130 mls @ 130 mls/hr 02/15/25 08:47
Dextrose IV 03/15/25 08:46
Q4HPRN PRN
Ionized Calcium < 1.2 mmol/L
Potassium Chloride 40 meq in 100 mls @ 50 mls/hr 02/15/25 08:47
Kcl IV 03/15/25 08:46
Q4HPRN PRN
K+ level < 3.6 mEq/L
Magnesium Sulfate 4 gram in 100 mls @ 50 mls/hr 02/15/25 08:47
Magnesium Sulfate IV 03/15/25 08:46
Q4HPRN PRN
Mag level < 2 mg/dL
Potassium Phosphate 40 meq/ 259.0909 mls @ 64.773 mls/hr 02/15/25 08:47
Sodium Chloride IV 03/15/25 08:46
PRN PRN
Phos < 2.7 and K+ < 3.6
Sodium Phosphate 40 meq/ 260 mls @ 65 mls/hr 02/15/25 08:47
Dextrose IV 03/15/25 08:46
PRN PRN
Phosphorus < 2.7 mg/dL
Sodium Chloride 0 flush 02/14/25 22:00
Sodium Chloride 0.9% (Flush) Syringe IV 03/14/25 21:59
PER PROTOCOL PATRICIO
Sodium Chloride 0 flush 02/15/25 08:47
Sodium Chloride 0.9% (Flush) Syringe IV 03/15/25 08:46
PRN PRN
disconnect from dialysis
Vancomycin HCl 125 mg 02/15/25 00:00 02/15/25 05:14
Vancomycin Oral Solution 50 Mg/Ml In Oral Syringe TUBE 125 mg
Q6 PATRICIO Administration
Home Medications
�Medication �Instructions �Recorded
acetaminophen 325 mg tablet 650 mg feeding tube DAILY mild Pain 11/22/24
(Tylenol)
allopurinol 100 mg tablet 100 mg feeding tube DAILY Gout 11/22/24
nystatin 100,000 unit/mL oral 10 ml buccal TID Infection 11/22/24
suspension
sertraline 25 mg tablet 25 mg feeding tube DAILY Mental 11/22/24
Health/Anxiety
acetaminophen 325 mg tablet 650 mg feeding tube Q6HPRN PRN 12/13/24
(Tylenol) mild pain
pantoprazole 40 mg granules 40 mg feeding tube BID gerd 12/13/24
delayed-release for susp in packet
sucralfate 100 mg/mL oral 1 g feeding tube BID gerd 12/13/24
suspension
bisacodyl 10 mg rectal suppository 10 mg IN DAILYPRN PRN if no bm 01/24/25
(Dulcolax (bisacodyl)) aftr sorbitol
sorbitol 70 % solution 30 ml PO DAILYPRN PRN constipation 01/24/25
lorazepam 0.5 mg tablet 0.5 mg feeding tube BIDPRN PRN 01/29/25
AXNIETY #6 tabs
sodium hypochlorite 0.125 % 1 applic topical DAILY #473 mL 01/29/25
solution (Dakin's Solution)
oxycodone 10 mg tablet 10 mg feeding tube BID severe pain 02/14/25
psyllium 1 tbsp feeding tube DAILY 02/14/25
Past History
Past History
ED Past Medical History: Arrthythmia (A-fib), CAD, CHF, COPD, CVA, HTN, IDDM, Renal failure (Dialysis [facility] ), Psychiatric (Anxiety, depression) and Other (GI bleed, anemia)
Family/Social History
Tobacco: Other (Unavailable)
Alcohol: Other (Patient is unavailable )
Living: longterm
Employment: Not employed
[2025-02-15 10:27] LABS: B.E. -10.4 mmol/L; O2 Saturation % 99.5 % (94-98); PCO2 25 mmHg (35-48); PO2 311 mmHg (83-108)
[2025-02-15 10:28] LABS: O2 Therapy VENT
[2025-02-15 10:30] LABS: HCO3 13.8 mmol/L (21-28)
[2025-02-15 10:31] LABS: Hematocrit 31.4 % (39.0-52.0); Hemoglobin 10.0 g/dL (13.0-18.0)
[2025-02-15 10:36] LABS: Magnesium 2.0 mg/dl (1.6-2.3)
[2025-02-15 10:39] LABS: Blood Urea Nitrogen 46 mg/dl (9-20); Calcium 7.8 mg/dl (8.4-10.2); Carbon Dioxide 12 mmol/L (22-30); Chloride 100 mmol/L (98-107); Estimated Creatinine Clearance 32 ml/min; Glucose 240 mg/dl (70-99); Potassium 3.1 mmol/L (3.5-5.1); Sodium 136 mmol/L (135-145); eGFR 31.91
--- NOTE | 2025-02-15 10:45 | PTCARENOTE ---
CRRT initiated at 10:40.
[2025-02-15 10:54] LABS: INR 2.65; PT 28.4 Sec (11.4-14.6)
[2025-02-15 11:03] LABS: Troponin I 0.243 ng/ml
--- NOTE | 2025-02-15 11:59 | WOUNDNOTE ---
WON RN NOTE: Patient admitted with cardiac arrest, extensive past medical history reviewed. Stopped by to see patient earlier, nurse Noel reports unstable at this time. Patient known to service, last seen on 01/25/25 for same chronic stage 4 PI's
on b/l ischium and sacrum. R heel and medial ankle with dry DTI's. L heel with chronic brown discolored spots. Recommend saline wet to dry dressings for sacrum and ischium, silicone foams to R heel and ankle. Adhesive foam to L heel and offloading
heel boots if doesn't already have in use. Will confirm orders with hospitalist. Reviewed reports, all recommend hospice/comfort, goals of care to be discussed with . Will try and follow later today or tomorrow if able and appropriate.
[2025-02-15] MEDS: SOLU-CORTEF 50 MG IV ×3 (12:02→23:31)
[2025-02-15] MEDS: STERILE WATER FOR INJECTION 10 ML IV ×3 (12:02→23:33)
[2025-02-15] MEDS: MERREM 500 MG IV ×3 (12:02→23:33)
[2025-02-15 12:54] LABS: Glucose - Point of Care 179 mg/dl (70-99)
--- NOTE | 2025-02-15 12:55 | PHA.VAN.FU ---
Vancomycin Assessment / Plan
- Assessment
Hemodialysis Schedule: Other ([facility] @ 1.5 L/H)
WBC's are: Trending Up
Concomitant Antimicrobials: meropenem
- Assessment - Therapeutic Drug Monitoring
Random Level: 14.9 - drawn ~9H after 1500mg loading dose
- Dosing Plan
Dosing by Level: Re-dose today (Vanc 750mg)
- Monitoring Plan
Random Level: 02/16 0600
- Follow Up
Pharmacy will continue to follow.
Vancomycin Follow UP
- -
Patient Age: 59
Patient Sex: Male
Vancomycin Day #: 2
Indication: Bacteremia
Requesting Provider: Dr Garo Fowler
Pertinent Antimicrobial Allergies:
NKDA
Height / Weight:
Height 5 ft 7 in
Actual Weight 78.2 kg
Pertinent Past Medical History: DM 2, ESRD HD MWF, Paraplegia, PEG
- Vital Signs / Lab Results
Temp Pulse Resp BP Pulse Ox
98.6 F 86 15 100/65 92
02/15/25 12:03 02/15/25 06:30 02/15/25 06:00 02/15/25 04:00 02/15/25 12:00
Lab Results - Hematology
02/14/25 02/15/25
16:30 03:35
WBC 20.7 H 66.2 H*
Band Neutrophils 3
Lab Results - Chemistry
02/14/25 02/14/25 02/15/25
16:30 22:04 03:35
BUN 25 H 38 H 42 H
Creatinine 1.3 2.2 H 2.3 H
Estimated Creat Clear 33 32
Albumin 1.6 L 2.4 L
02/15/25 02/15/25
10:13 14:00
BUN 46 H Cancelled
Creatinine 2.3 H Cancelled
Estimated Creat Clear 32 Cancelled
Albumin
02/14/25 02/14/25 02/15/25
16:30 22:04 03:35
Lactic Acid 8.8 H* 12.5 H* 13.1 H*
02/15/25
07:27
Lactic Acid 11.8 H*
Lab Results - Urine
02/14/25
19:11
Urine Nitrite (Reflex) Negative
Leukocyte Esterase Rfl 3+ A
Ur Squamous Epith Cells 3-5
Microbiology Results
02/14/25 16:42 Blood Culture - Preliminary
Blood/Venous Escherichia coli - ESBL
Gram Stain - Preliminary
Therapeutic Drug Monitoring
Random Vancomycin 14.9 ug/ml 02/15/25 03:35
[2025-02-15] MEDS: SODIUM BICARBONATE IV (12:57)
--- NOTE | 2025-02-15 13:36 | CHAP ---
Emotional and spiritual support ongoing. Monsignor Mendieta provided Sacrament of the Sick/Last Rites as requested. Will follow.
--- NOTE | 2025-02-15 13:43 | W.PN.HOSP.TC ---
Today's Communication/Plan
-
see outlined plan
Assessment / Plan
Assessment / Plan
Assessment:
Cardiac arrest with VDRF
Cardiogenic (postCPR) vs septic shock
- during dialysis session; ROSC after 4 rounds of EPI. Intubated in field. Unclear etiology, hypoglycemia on admission.
- remains intubated; unresponsive therefore not requiring sedation
- EEG suggestive of severe anoxic injury (anoxic encephalopathy) per Neurology; portends dismal prognosis. CT head negative.
- Echocardiogram without wall motion abnormality, pericardial effusion noted without tamponade, no PE noted on CT with contrast study.
- remains on 4 pressors (epinephrine, Levophed and vasopressin, phenylephrine)
- receiving aggressive IVF and also stress dose steroids
ESBL bacteremia
Multifocal pneumonia, possible aspiration from code
- continue Merrem; pending cultures
Severe metabolic/lactic acidosis
ESRD on HD
- related to prolonged cardiac arrest and hypoperfusion
- no evidence of bowel ischemia on CT
- continue bicarbonate infusion
- on CRRT per Nephrology
- Wellington for critical care I/Os
Markedly elevated LFTs
- shock liver
- GI consulting; no procedures planned
acute Anemia
hx hematemesis 11/2024 with erythematous mucosa gastric body
- s/p 2 units PRBC
- continue PPI. stools brown/blood tinged
hx CVA with residual paraplegia/aphasia/dysphagia
chronic peg /dysphagia
Nonischemic myocardial injury
- trend to peak
- EKG without ischemia
h/o intraabdominal abscess with necrotizing infection requiring multiple surgeries with removal and replacement of PEG placement (May 2023)
NIDDM
Hx of HFpEF
Essential HTN
Hx of C. diff - continue prophylactic Vanco via Tube
Hypokalemia
Hypocalcemia
- replete as needed
DVT ppx: SCDs
Code: Full
GOC: spoke to Key. discussed poor prognosis in setting of cardiac arrest, post-arrest hemodynamic instability requiring IVF, 4 pressors. Also discussed EEG suggestive of severe anoxic brain injury. Recommended DNR and withdrawal of care.
Key states family is coming from [place] over next 24-48 hours. She states she will likely withdraw care in 24-48 hours.
Total Critical Care Time 42 minutes. I was immediately available to the patient and staff. I personally examined, reviewed labs, diagnostic images/reports, interpretations, treatment plans, discussed patient care with other providers and family
or caregivers (if patient is unable to make decisions), entered orders as appropriate and documented the medical record.
Anticipated Discharge: > 48 hours
Subjective/Interval History
-
Date of Service: February 15, 2025
remains unresponsive on vent without sedation
notified by neurology that EEG suggestive severe anoxic brain injury
Objective Data
-
Labs:
Laboratory Results
02/15/25 02/15/25 02/15/25
03:35 03:35 03:35
WBC 66.2 H*
Hgb Cancelled 10.2 L
Hct Cancelled 32.6 L
Plt Count 518 H D
PT
INR
HCO3 9.5 L*
Sodium 133 L
Potassium 3.1 L
Chloride 100
Carbon Dioxide 5 L*
BUN 42 H
Creatinine 2.3 H
Glucose 264 H
Calcium 7.9 L
Total Bilirubin 2.5 H D
AST > 7500 H*
ALT 6585 H*
Alkaline Phosphatase 423 H
02/15/25 02/15/25 02/15/25
07:27 10:13 10:14
WBC
Hgb 10.0 L
Hct 31.4 L
Plt Count
PT 28.4 H
INR 2.65
HCO3 11.4 L* 13.8 L*
Sodium 136
Potassium 3.1 L
Chloride 100
Carbon Dioxide 12 L*
BUN 46 H
Creatinine 2.3 H
Glucose 240 H
Calcium 7.8 L
Total Bilirubin
AST
ALT
Alkaline Phosphatase
02/15/25 02/15/25
14:00 18:00
WBC
Hgb
Hct
Plt Count
PT
INR
HCO3 Pending
Sodium Cancelled
Potassium Cancelled
Chloride Cancelled
Carbon Dioxide Cancelled
BUN Cancelled
Creatinine Cancelled
Glucose Cancelled
Calcium Cancelled
Total Bilirubin
AST
ALT
Alkaline Phosphatase
Vital Signs:
Vital Signs
Temp Pulse Resp BP Pulse Ox
98.6 F 86 15 100/65 92
02/15/25 12:03 02/15/25 06:30 02/15/25 06:00 02/15/25 04:00 02/15/25 12:00
I&O
02/14/25 02/15/25 02/16/25
06:59 06:59 06:59
Intake Total 2499.5 / 2499.5 2163.8 / 2163.8
Output Total 950 / 950 295 / 295
Balance 1549.5 / 1549.5 1868.8 / 1868.8
Physical Exam
-
General: Intubated and Appears Chronically Ill
HEENT: Normocephalic and Atraumatic
Respiratory: Decreased Breath Sounds; Negative Wheezes or Rales
Cardiac: Regular Rhythm and S1/S2
GI: Soft and Peg Tube
Neuro: Other (unresponsive)
Data Reviewed
-
Critical Care Time (in minutes): 42
Labs: Labs Reviewed by me
[2025-02-15] MEDS: VANCOCIN 150 IV (13:47)
--- NOTE | 2025-02-15 14:29 | W.PN.UPDATE ---
Update Note
Progress Note Update
RTSP: CRRT running. no issues. 4K, 250Qb, 1.5L dialysate, UF even. remains on 4 pressors, neosynephrine increased. on EEG.
acidosis improving, only 60% O2 on vent
[2025-02-15] MEDS: RFP-401 HD Soln (K+ 4 mEq/L) 15000 ML CRRT-IRR (15:21)
--- NOTE | 2025-02-15 15:55 | PTCARENOTE ---
Assessment unchanged. Remains on CRRT. On levo/epi/vaso/vladimir.
--- NOTE | 2025-02-15 16:55 | CM ---
chart reviewed
patient from [facility]
dx: cardiac arrest
PMH: ESRD, severe sacral / ischial wounds, prior CVAs, non-verbal / paraplegic / tube-feed dependent
patient remains intubated
GOC being discussed with
PLAN: EVGENY DIEGO to follow
[2025-02-15 17:06] LABS: B.E. -11.7 mmol/L; O2 Saturation % 99.2 % (94-98); PCO2 27 mmHg (35-48); PO2 142 mmHg (83-108)
[2025-02-15 17:07] LABS: Hematocrit 31.8 % (39.0-52.0); Hemoglobin 10.3 g/dL (13.0-18.0)
[2025-02-15 17:09] LABS: HCO3 13.3 mmol/L (21-28)
[2025-02-15 17:29] LABS: Blood Urea Nitrogen 38 mg/dl (9-20); Calcium 8.1 mg/dl (8.4-10.2); Carbon Dioxide 11 mmol/L (22-30); Chloride 103 mmol/L (98-107); Estimated Creatinine Clearance 44 ml/min; Glucose 138 mg/dl (70-99); Potassium 3.4 mmol/L (3.5-5.1); Sodium 136 mmol/L (135-145); eGFR 45.86
[2025-02-15 17:33] LABS: Troponin I 0.250 ng/ml
--- NOTE | 2025-02-15 17:38 | W.PN.UPDATE ---
Update Note
Progress Note Update
Met with patient's spouse and extended family at bedside and then later in the conference room. We went over EEG findings, current 4 pressors infusing, serial labs, ongoing CRRT and unchanged neurological exam without any ongoing sedative
medications. We discussed various code status optioins including Full code, DNR, limited DNR and comfort focused care. Family has opted to move forward with DNR code status, and continue current supportive care.
Code status changed to DNR.
Additional 35 mins of critical care time spent.
[2025-02-15] MEDS: NEO-SYNEPHRINE 1% 260 MG IV (17:59)
[2025-02-15] MEDS: ADRENALIN 258 MG IV (18:00)
[2025-02-15] MEDS: KCL 100 IV (18:01)
[2025-02-15 18:51] LABS: Magnesium 2.0 mg/dl (1.6-2.3)
[2025-02-15] MEDS: CALCIUM GLUCONATE 130 MG IV ×2 (19:09→23:28)
[2025-02-15] MEDS: RFP-401 HD Soln (K+ 4 mEq/L) 5000 ML CRRT-IRR (19:31)
--- NOTE | 2025-02-15 20:00 | PTCARENOTE ---
Rec'd pt unresponsive to verbal or tactile stimuli, Cont EEG monitor on, extremities flaccid, pupils 2mm, nonreactive, SR w/ occas PAC, pvc, R rad nandini w/ good wave form, zeroes, flushed, pt maxed on Double conc Levo at 30, Double conc vladimir at 200,
double conc epi at 10, vaso at 0.03, doppler distal pulses,+ anasarca, #8 oral ett - repos on R side at 24cm, ac 30, rv 500, 5 peep, 50%, difficult to obtain sat, lungs w/ scat rhonchi, sm amt white secretions via tube, lg amt clear oral secretions,
hypo bowel sounds, fecal mgmt sys to str drainage bag draining brown liquid stool, peg to str drainage bag draining brown liquid,no vomiting, griffiths w/ scant brown urine, CRRT ongoing via R HD cath- see flow sheet
pt's temp 95.4- warmer turned up on CRRT machine
[2025-02-15] MEDS: NSS (PRESERVATIVE FREE) 10 ML IV (20:05)
[2025-02-15] MEDS: PROTONIX IV 40 MG IV (20:05)
--- NOTE | 2025-02-15 22:00 | PTCARENOTE ---
CHG bath done, linens changed
[2025-02-15 23:00] LABS: B.E. -11.7 mmol/L; O2 Saturation % 98.9 % (94-98); PCO2 26 mmHg (35-48); PO2 118 mmHg (83-108)
--- NOTE | 2025-02-15 23:00 | PTCARENOTE ---
Addendum entered by Tawana Busch RN 02/15/25 23:23:
unable to obtain a sat- abg sent per order
Original Note:
temp mot improving despite inc temp on warmer on crrt, changes to rectal probe since pt is oliguric; steven jordan applied
[2025-02-15 23:04] LABS: HCO3 13.1 mmol/L (21-28)
[2025-02-15 23:09] LABS: Hematocrit 31.1 % (39.0-52.0); Hemoglobin 10.0 g/dL (13.0-18.0); Mean Corp Hgb Conc. 32.2 g/dL (33.0-37.0); Mean Corpuscular Volume 82.7 fL (80.0-94.0); Platelet Count 296 10^3/uL (130-400); Red Cell Dist. Width 16.9 % (11.5-14.5)
--- NOTE | 2025-02-15 23:29 | PTCARENOTE ---
3 gm brooke gluc hung over 1hr per order
[2025-02-15 23:34] LABS: Blood Urea Nitrogen 33 mg/dl (9-20); Calcium 8.7 mg/dl (8.4-10.2); Carbon Dioxide 11 mmol/L (22-30); Chloride 106 mmol/L (98-107); Estimated Creatinine Clearance 50 ml/min; Glucose 90 mg/dl (70-99); Magnesium 1.9 mg/dl (1.6-2.3); Potassium 4.4 mmol/L (3.5-5.1); Sodium 137 mmol/L (135-145); eGFR 53.30
--- NOTE | 2025-02-16 | PTCARENOTE ---
Addendum entered by Tawana Busch RN 02/16/25 00:23:
still unable to obtain a pulse ox, will get abgs as ordered
Original Note:
sys reviewed, 4 gm mag hung over 2 hr per protocal; dsgs changed
[2025-02-16] MEDS: MAGNESIUM SULFATE 100 IV (00:09)
--- NOTE | 2025-02-16 02:00 | PTCARENOTE ---
CRRT alarming high venous pressure, art & venous ports switched, unable to draw blood back from red port but can flush it, CRRT machine cont to alarm, clot noted in blue port, dialysis stopped, Kaleb Ye NP notified Dr Das & Dr Diaz, to keep
CRRT off the rest of the shift & assess in am , red & blue ports of catheter flushed w/ hep per order
[2025-02-16] MEDS: NEO-SYNEPHRINE 1% 260 MG IV (02:06)
--- NOTE | 2025-02-16 02:13 | W.PN.UPDATE ---
Update Note
Progress Note Update
02/16/25
0200- CRRT machine unable to continue, attempted to flush/pull back blood/switch venous with arterial for CRRT to run but was unsuccessful. Dialysis cath does not have blood return and difficulty flushing cath. Updated Dr. Diaz, system validation engineer and
Dr. Das, fur buyer that CRRT machine is down and unable to continue running due to access issues with the dialysis catheter. At this time will hold CRRT for now and re-evaluation in the AM along with evaluation of dialysis cath and possibly
consideration of TPA vs dialysis cath exchange. Heparin lock flushes ordered. Meropenem dose due at 0600 will hold that dose and pharmacy can re-evaluate next dose if dialysis/CRRT will continue.
[2025-02-16] MEDS: HEPARIN 2100 UNITS INTRACATH (02:14)
[2025-02-16] MEDS: HEPARIN 2000 UNITS INTRACATH (02:16)
[2025-02-16] MEDS: LEVOPHED 258 MG IV ×2 (02:23→06:32)
--- NOTE | 2025-02-16 02:30 | PTCARENOTE ---
BP low, remains Maxed on 4 pressors, Kaleb Ye, LIVESTOCK TRADER aware
[2025-02-16] MEDS: PITRESSIN 100 IV (03:58)
--- NOTE | 2025-02-16 04:02 | PTCARENOTE ---
sys reviewed, ett repos on left side at 24 cm
[2025-02-16 04:03] VITALS: BMI 27.9
[2025-02-16 05:16] LABS: B.E. -13.1 mmol/L; O2 Saturation % 98.4 % (94-98); PCO2 26 mmHg (35-48); PO2 107 mmHg (83-108)
[2025-02-16 05:18] LABS: HCO3 12.2 mmol/L (21-28)
--- NOTE | 2025-02-16 05:28 | PTCARENOTE ---
Kaleb Ye NP aware of bp 78/40 &critical abg
[2025-02-16] MEDS: SOLU-CORTEF 50 MG IV (05:30)
[2025-02-16] MEDS: FIRVANQ 125 MG TUBE (05:31)
[2025-02-16] MEDS: ADRENALIN 258 MG IV (05:35)
[2025-02-16 05:49] LABS: Albumin 2.3 g/dl (3.5-5.0); Alkaline Phosphatase 330 U/L (38-126); Blood Urea Nitrogen 37 mg/dl (9-20); Calcium 8.8 mg/dl (8.4-10.2); Carbon Dioxide 11 mmol/L (22-30); Chloride 105 mmol/L (98-107); Estimated Creatinine Clearance 41 ml/min; Glucose 66 mg/dl (70-99); Hematocrit 29.0 % (39.0-52.0); Hemoglobin 9.1 g/dL (13.0-18.0); Magnesium 2.8 mg/dl (1.6-2.3); Mean Corp Hgb Conc. 31.4 g/dL (33.0-37.0); Mean Corpuscular Volume 83.8 fL (80.0-94.0); Platelet Count 273 10^3/uL (130-400); Potassium 4.6 mmol/L (3.5-5.1); Red Cell Dist. Width 17.1 % (11.5-14.5); Sodium 135 mmol/L (135-145); Total Protein 6.4 g/dl (6.3-8.2); eGFR 42.82
[2025-02-16] MEDS: DEXTROSE 50% SYRINGE 12.5 GRAMS IV (06:02)
[2025-02-16 06:09] LABS: AST (SGOT) 3259 U/L (17-59); Troponin I 0.129 ng/ml
[2025-02-16 06:19] LABS: ALT (SGPT) 4320 U/L (0-50)
--- NOTE | 2025-02-16 06:23 | PTCARENOTE ---
pts glucose from am labs was 66, 1/2 amp d50 iv given, repeat accu 98
[2025-02-16 06:31] LABS: Glucose - Point of Care 98 mg/dl (70-99)
[2025-02-16] MEDS: STERILE WATER FOR INJECTION IV (06:32)
--- NOTE | 2025-02-16 07:10 | PTCARENOTE ---
Remain unresponsive to painful stimuli with no protective reflexes. Flaccid. cEEG intact. No seizure activity noted, no assistance of the ventilator. Settings unchanged. See worklist for drips via left femoral TL CVC. Right midline flushed and
patent. Right radial arterial line transduced, calibrated and monitored. #8 ETT secured 24cm @ the lip. Tolerating AC 30/500/.50/+5. Coarse breath sounds. Left abdominal Peg tube clamped. Anuric. Indwelling [place] catheter with no UOP. Catheter care
performed. Dressing to sacrum intact. Adhesive foam dressing to heels intact. Left ischial dressing intact. Scabs on chest [place]. Foam filled heel relief boots intact. Knee-hi SCD's intact. Safe environment maintained.
--- NOTE | 2025-02-16 07:54 | EEGC.RPT ---
Continuous EEG Report
Recording
Start Date of Data Reviewed: 02/15/25
Start Time of Data Reviewed: 09:15
End Date of Data Reviewed: 02/16/25
End Time of Data Reviewed: 07:00
Type of EEG: Continuous
Done with Video Recording: Yes
Study Sequence: Initiation of Study
Electrocardiogram: Unremarkable
Patient Status: Inpatient
Report
24 HOUR CONTINUOUS EEG REPORT
24 HOUR CONTINUOUS EEG INTERPRETATION:
Severely abnormal EEG for age in unresponsiveness due to:
Burst-suppression activity.
CLINICAL CORRELATION:
This study was suggestive of severe bihemispheric cortical dysfunction.
Clinical correlation is advised.
METHODS:
A 21 channel digitized electroencephalogram (EEG) was performed at the bedside in the intensive care unit. The 10/20 international system of electrode placement was used. ECG was monitored. Persyst quantitative analysis was performed.
ELECTROENCEPHALOGRAPHER IMPRESSION(S):
Quality
Good
Background
Maximum: No background rhythm demonstrated
Amplitude: Not applicable
Anterior-posterior gradient: Absent
Sleep
Not demonstrated
Abnormal EEG activity
Isoelectric suppressions lasting for approximately 5-30 seconds were interrupted by bursts of high amplitude generalized periodic discharges of variable frequency (0.5 to 2 Hz) lasting for approximately 10 seconds.
Electrocardiogram
Unremarkable
--- NOTE | 2025-02-16 08:08 | W.PN.NEPH.PH ---
Today's Communication / Plan
-
Family to address clinical status
Dialysis line currently clotted
CRRT circuit with extensive clotting last evening
I would only ask IR to replace catheter if family demands full support but at this point I believe further care is futile
Assessment/Plan
-
IMP:
Anemia
ESRD on HD-M[facility]
left UE AVF unused
right chest wall catheter
Dysphagia on PEG
Hx of CVA with residual aphasia and paraplegia
Urine retention
Diabetes mellitus type 2
Cardiac arrest
Hypotension
Vent dependent respiratory failure
Lactic acidosis
Sepsis with ESBL noted in blood culture from 02/14/2025
Plan:
CRRT circuit clotted last evening with dialysis catheter dysfunction
Will need to consult IR for catheter exchange if aggressive care is to be pursued
Patient is on multiple pressors at this point and I believe the patient should pursue palliative course at this point as even on for pressor support we are not able to augment adequate perfusion pressure
Henceforth even if I reinitiate CRRT his blood pressure will likely potentiate further clotting of the circuit and catheter
Family to come in this morning to assess status
Maintain on pressure greater than 65 on 4 pressor support
Patient remains critically ill on 4 pressor support following cardiac arrest
Empiric antibiotics
Patient remains full code
Critical care time 40 minutes
Total Time Spent with Patient (in minutes): 40
-
-
Date of Service: February 16, 2025
CC / HPI / ROS
-
Chief Complaint:
ESRD
History of Present Illness:
ESRD now on CRRT due to hemodynamic collapse on 4 pressors
Patient clotted CRRT circuit and catheter line last evening
Hemodynamically unstable on 4 pressor support
Profound metabolic acidosis persist
ESBL and blood culture now on Meropenem
Review of Systems:
Intubated sedated nonresponsive
Febrile
Labs
-
Labs:
eGFR 42.82 02/16/25 05:02
Albumin 2.3 g/dl (3.5-5.0) L 02/16/25 05:02
Physical Exam
-
Vital Signs:
Vital Signs
Temp Pulse Resp BP Pulse Ox
101 F H 93 30 97/51 98
02/16/25 07:26 02/16/25 06:30 02/16/25 06:06 02/15/25 17:45 02/16/25 04:16
Cardiovascular:: Regular rate and rhythm
Respiratory:: Bilateral: Coarse
Lung Excursion:: Normal
Abdomen:: Nontender and Soft
Bowel Sounds:: None
Extremity Edema:: +2: Bilateral:
Wellington Catheter: Yes
[2025-02-16 08:16] LABS: Absolute Neutrophils -Man Diff 46.8 10^3/uL (1.4-6.5)
[2025-02-16 08:17] LABS: Anisocytosis 1+; Hypochromasia 1+; Normal RBC Morphology No; Platelets Checked Yes; Polychromasia 1+; Target Cells 1+; Total Cells Counted 100
[2025-02-16 08:43] LABS: Glucose - Point of Care 74 mg/dl (70-99)
[2025-02-16 08:56] LABS: B.E. -14.1 mmol/L; O2 Saturation % 98.9 % (94-98); PCO2 25 mmHg (35-48); PO2 115 mmHg (83-108)
[2025-02-16 08:58] LABS: HCO3 11.5 mmol/L (21-28)
--- NOTE | 2025-02-16 09:30 | W.PN.INTV ---
Today's Communication / Plan
Recommendations
- Transition to comfort focused care
Assessment
-
Patient is a 59-year-old gentleman with complex medical history is currently intubated and unresponsive. History mostly obtained from review of records as well as discussion with other healthcare team members. Patient has known history of
end-stage renal disease and is on dialysis chronically. Patient was on his dialysis session on 02/14 and about two thirds through the dialysis he suffered a cardiac arrest. CPR was started and patient received 4 rounds of epi prior to ROSC being
achieved. Patient was intubated in the field and was transferred to emergency room for further evaluation. Initial labs in the emergency room showed severe metabolic acidosis as well as hypoglycemia along with shock. Patient also had a bedside
echocardiogram performed in the emergency room concerning for mild pericardial effusion however no tamponade was observed. Patient was subsequently admitted to the ICU and septic cleaner consultation was requested for further input.
#1. Cardiac arrest with worsening shock
- [id number] arrest during hemodialysis, ROSC achieved after 4 doses of epinephrine and CPR, intubated in the field
- ? Etiology. Hypoglycemia noted on admission
- Concern for significant anoxic injury considering neurological exam, CT head unremarkable. Patient continues to be unresponsive, markedly abnormal EKG
- Echocardiogram without wall motion abnormality, pericardial effusion noted without tamponade, no PE noted on CT with contrast study.
- 02/16, worsening shock noted. MAP noted to be around 45, patient maxed out on 4 pressors including epinephrine, norepinephrine, vasopressin and phenylephrine. Patient's spouse at bedside. Patient's spouse expressed that she does not want to
renew the phenylephrine back once it finishes. I met with her at bedside, we went over patient's current clinical condition and rapid decline noted with impending cardiac arrest considering inability to maintain appropriate MAP despite multiple
pressors. CRRT had to be discontinued overnight due to dysfunctioning catheter. With current blood pressure and multiple pressors, patient no longer a candidate for renal replacement therapy. Patient's opted to proceed with comfort focused
care and asked us to withdraw all support including pressors as well as endotracheal tube. We discussed that patient unlikely to breathe on his own and likely will pass away shortly. Patient's in agreement.
Other medical diagnoses:
#2. Encephalopathy, ?Anoxic
#3. Severe metabolic acidosis, elevated lactate
#4. Multifocal pneumonia with ESBL, E. Coli bacteremia
#5. Anemia on admission
#6. DM with hypoglycemia on admission
#7. ESRD, on HD
#8. Acute liver injury
#9. Pericardial effusion
#10. Minimally elevated troponin
#11. Cholelithiasis with small volume pericholecystic fluid
#12. Pyuria, ?UTI
#13. Large sacral ulcer with concern for osteomyelitis
Other medical diagnoses:
- H/o CVA with resultant paraplegia
- Paroxysmal A fib, not on AC due to GI bleeds
- GERD
- S/p PEG tube
Goals of care discussion: 02/15, 7:30 AM, met with patient's at bedside. Patient being initiated on fourth pressor, critically ill. No gag or cough reflex noted. Pupils are mid dilated and fixed. Updated that patient unlikely to
survive this hospitalization considering worsening MAP despite maximum supportive care. Patient at risk of another cardiac arrest in the short-term. Patient's requested neurology input to help make decision. Discussed with neurology service,
await formal recommendations.
Critical Care time 45 mins -- The patient is admitted for acute critical illness for the treatment of vital organ failure and/or prevention of further life-threatening conditions. Total care includes time spent in review of history, physical exam,
medications, hemodynamic/ventilator parameters, laboratory data, imaging and discussion with house staff, pharmacy, respiratory therapy, emergency medcl emt, and nursing.
Data:
EKG 01/2025: PVCs, Sinus rhythm, QTc 495
ECHO 01/2025: 1. Vigorous left ventricular systolic function with no obvious regional wall motion abnormalities. Left ventricular ejection fraction visually estimated 70 to 75%.
2. Normal RV size and systolic function.
3. Trileaflet, mildly sclerotic aortic valve without stenosis or regurgitation.
4. No significant mitral, tricuspid or pulmonic regurgitation.
5. Mild to moderate pericardial effusion without echocardiographic evidence of tamponade.
6. Compared to prior study report dated 12/17/2024, pericardial effusion is new.
CT Head 01/2025: No acute change
CT C/A/P 01/2025: 1. There is a consolidation with surrounding groundglass opacities in the left lower lobe and to a lesser extent the posterior right upper and lower lobe suspicious for multifocal pneumonia.
2. Small pericardial effusion.
3. Hepatomegaly, similar to prior.
4. Cholelithiasis. There is small volume pericholecystic free fluid which can be seen with acute cholecystitis. Consider correlation with right upper quadrant ultrasound.
5. There is wall thickening with fluid throughout the colon suggestive of malabsorption/diarrheal illness. Fecal management system is present.
6. Wellington catheter is present with chronic urinary bladder wall thickening, similar to prior.
7. Large sacral decubitus ulcer with absence of the distal sacrum and coccyx which appears similar to prior. There is new foci of gas which extend towards the left ischial tuberosity for which developing osteomyelitis is possible.
Subjective Dataa
Subjective Data
Date of Service:
Date of Service: February 16, 2025
Subjective:
Patient continued to be unresponsive, worsening hypotension despite maxing out on 4 pressors.
Review of Systems
General: Unobtainable - Pat Unresp
Objective Data
Data Reviewed
Vital Signs / I&O / Oxygen:
Vital Signs
Temp Pulse Resp BP Pulse Ox
101.6 F H 73 30 97/51 98
02/16/25 09:01 02/16/25 10:00 02/16/25 10:00 02/15/25 17:45 02/16/25 04:16
Intake and Output
02/15/25 02/16/25 02/17/25
06:59 06:59 06:59
Intake Total 2499.5 / 2499.5 5239.8 / 5353.9 341.5 / 341.5
Output Total 950 / 950 2962 / 2962 0 / 0
Balance 1549.5 / 1549.5 2277.8 / 2391.9 341.5 / 341.5
SaO2 [A/C] 99
SaO2 98
Physical Exam
General: Comfortable
HEENT: Normocephalic
Cardiovascular: S1-S2
Respiratory: Clear
GI: Soft and Non Distended
Neurology: Other (Unresponsive)
Skin: Warm
Labs/Micro/Reports
Laboratory Results
02/15/25 02/15/25 02/16/25
16:58 22:55 05:02
pH 7.30 L 7.31 L 7.28 L
pCO2 27 L 26 L 26 L
pO2 142 H 118 H 107
HCO3 13.3 L* 13.1 L* 12.2 L*
O2 Delivery Level
02/16/25
08:34
pH 7.27 L
pCO2 25 L
pO2 115 H
HCO3 11.5 L*
O2 Delivery Level
Microbiology
02/15/25 07:50 Tracheal Aspirate Respiratory Culture - Preliminary
Gram negative bacilli
02/15/25 07:50 Tracheal Aspirate Gram Stain - Preliminary
02/14/25 16:42 Blood/Venous Blood Culture - Preliminary
Escherichia coli - ESBL
02/14/25 16:42 Blood/Venous Gram Stain - Preliminary
02/15/25 07:50 Nose MRSA Screen - Final
Staph aureus MRSA
02/14/25 19:11 Urine Urine Culture - Final
[2025-02-16] MEDS: PROTONIX IV IV (09:35)
[2025-02-16] MEDS: NSS (PRESERVATIVE FREE) IV (09:35)
--- NOTE | 2025-02-16 09:50 | PTCARENOTE ---
SBP 60 w/MAP 39. Pt's is at the bedside. She asked to withdrawal care and that we are prolonging his suffering. Dr. Das notified and spoke with her regarding her wishes and reviewed the information we had regarding this decision. will
proceed with withdrawal of care at this time. RPT notified and all care was withdrawn @ 1000. Asystole on monitor @ 1011, Dr. Perez notified of this @ 1013 via TC. remains at the bedside. Spiritual and other supportive measures provided.
--- NOTE | 2025-02-16 10:00 | RESPNOTE ---
Patient extubated per family wishes for withdrawl of care.
--- NOTE | 2025-02-16 10:42 | W.PN.DEATH ---
Pronouncement of
-
Called to see patient to pronounce.
No spontaneous heart tones or respirations noted.
Patient not responsive to verbal stimuli.
Patient is pronounced .
Time of : 10:11
Date of : 02/16/25
Cause of : Cardiac Arrest
Family Notified: Yes
--- NOTE | 2025-02-16 10:48 | CHAP ---
Emotional and spiritual support provided. End of life prayers being shared as he at approx. 10:11. Will follow.
--- NOTE | 2025-02-16 11:18 | W.DCSUMMARY ---
Discharge Summary
Discharge Data
Date of Admission: 02/14/25
Date of Discharge: 02/16/25
-
Pending Results: No
Hospital Course
59 y/o M PMH significant for ESRD, severe sacral / ischial wounds, prior CVAs, non-verbal / paraplegic / tube-feed dependent and bed-bound at baseline who presented to ED on 02/14 from NH/HD s/p cardiac arrest. Patient required 4 rounds of Epi
before ROSC. He was intubated in the field. He was admitted to ICU. He was placed on 4 pressors and started on CRRT. He was found to have septic shock from pneumonia and also bacteremia. Patient was not responsive and EEG showed signs consistent
with acute anoxic brain injury. Family decided to withdraw care on 02/16 and patient passed 02/16 at 10:11 AM.
Discharge Plan
-
Patient Disposition:
Activity Restrictions/Additional Instructions:
Wound Care Instructions
Sacrum and B/L Ischium: saline wet to dry dressing daily and prn soilage.
R heel and ankle: clean with soap and water, silicone foam change q 2-3 days and prn soilage.
L heel: skin prep and adhesive foam change q 2-3 days and prn soilage.
offloading fiber filled heel boots.
Air mattress with turning schedule
Referrals:
Scarlett Thompson MD [Family Provider]
Prescriptions:
No Action
nystatin 100,000 unit/mL Suspension
10 ml buccal TID
acetaminophen [Tylenol] 325 mg Tablet
650 mg feeding tube DAILY
allopurinol 100 mg Tablet
100 mg feeding tube DAILY
sertraline 25 mg Tablet
25 mg feeding tube DAILY
acetaminophen [Tylenol] 325 mg Tablet
650 mg feeding tube Q6HPRN PRN (Reason: mild pain)
sucralfate 100 mg/mL suspension
1 g feeding tube BID
Rx Instructions:
when feeding is not running
pantoprazole [address] for susp in packet
40 mg feeding tube BID
bisacodyl [Dulcolax (bisacodyl)] 10 mg Suppository
10 mg KS DAILYPRN PRN (Reason: if no bm aftr sorbitol)
sorbitol 70 % Solution
30 ml PO DAILYPRN PRN (Reason: constipation)
Dakin's Solution 0.125 % Solution
1 applic topical DAILY Qty: 473 0RF
lorazepam 0.5 mg Tablet
0.5 mg feeding tube BIDPRN PRN (Reason: AXNIETY) Qty: 6 0RF
psyllium Powder
1 tbsp FEEDING TUBE DAILY
oxycodone 10 mg tablet
10 mg feeding tube BID
Discharge Date and Time
Print Language: UKRAINIAN
--- NOTE | 2025-02-16 12:02 | PTCARENOTE ---
Unable to removed tunnelled HD catheter from right IJ, post mortem, sutures were removed, Tegaderm dressing applied.
--- NOTE | 2025-02-16 15:29 | CM ---
F/U: Sig Other came in, patient was put on comfort the extubated, patient at 10:11 AM. Sig Other asked for resources for Homes thus met with her, provided a list to call. PLAN: .
== END 2025-02-16 10:11 | disposition expired | DRG 871 ==
LOC: ICU 20:39
PROVIDERS: Nurse Practitioner Adult Health; Nurse Practitioner Family; Nurse Practitioner Primary Care; ADMITTING PHYSICIAN Hospitalist; ATTENDING PHYSICIAN Internal Medicine; CONSULT PHYSICIAN Internal Medicine; CONSULT PHYSICIAN Internal Medicine Cardiovascular Disease; CONSULT PHYSICIAN Psychiatry & Neurology Neurology; CONSULT PHYSICIAN Specialist; EMERGENCY PHYSICIAN Emergency Medicine; FAMILY PHYSICIAN Internal Medicine
PROC: 5A1D90Z Performance of Urinary Filtration, Continuous, Greater than 18 hours Per Day (ICD-10-PCS; 2025-02-14)
PROC: 5A1945Z Respiratory Ventilation, 24-96 Consecutive Hours (ICD-10-PCS; 2025-02-14)
DX: A41.9 Sepsis, unspecified organism (principal); J18.9 Pneumonia, unspecified organism; L89.154 Pressure ulcer of sacral region, stage 4; N18.6 End stage renal disease; K72.00 Acute and subacute hepatic failure without coma; R65.21 Severe sepsis with septic shock; G93.1 Anoxic brain damage, not elsewhere classified; E87.20 Acidosis, unspecified; G82.20 Paraplegia, unspecified; I31.39 Other pericardial effusion (noninflammatory); D68.9 Coagulation defect, unspecified; F11.20 Opioid dependence, uncomplicated; I13.2 Hypertensive heart and chronic kidney disease with heart failure and with stage 5 chronic kidney disease, or end stage renal disease; I50.32 Chronic diastolic (congestive) heart failure; J44.0 Chronic obstructive pulmonary disease with (acute) lower respiratory infection; N39.0 Urinary tract infection, site not specified; Z99.11 Dependence on respirator [ventilator] status; I46.9 Cardiac arrest, cause unspecified; I69.391 Dysphagia following cerebral infarction; I69.365 Other paralytic syndrome following cerebral infarction, bilateral; I69.320 Aphasia following cerebral infarction; Z74.01 Bed confinement status; Z99.2 Dependence on renal dialysis; E11.22 Type 2 diabetes mellitus with diabetic chronic kidney disease; Z51.5 Encounter for palliative care; I48.0 Paroxysmal atrial fibrillation; Z79.01 Long term (current) use of anticoagulants; K21.9 Gastro-esophageal reflux disease without esophagitis; D63.1 Anemia in chronic kidney disease; E11.649 Type 2 diabetes mellitus with hypoglycemia without coma; F32.A Depression, unspecified; F41.9 Anxiety disorder, unspecified; G89.29 Other chronic pain; H57.04 Mydriasis; I35.8 Other nonrheumatic aortic valve disorders; L89.309 Pressure ulcer of unspecified buttock, unspecified stage; Z79.4 Long term (current) use of insulin; Z79.899 Other long term (current) drug therapy
CPT/HCPCS: 70450; 71045; 71260; 74177; 80048; 80053; 80202; 81003; 81015; 82248; 82330; 82805; 82962; 83605; 83735; 84100; 84484; 85014; 85018; 85025; 85027; 85610; 85730; 86850; 86900; 86901; 86920; 87040; 87070; 87077; 87086; 87147; 87154; 87186; 87205; 93005; 93306; 94002; 94003; 95714; 95816; 96374; 96375; 99285; P9016; Q9967